=== PATIENT | male | born 1940 | race American Indian/Alaskan Native ===

== ENCOUNTER 2018-04-09 22:53 | Inpatient (IN) | payer MEDICARE ==
[2018-04-09] MEDS ORDERED: NACL 0.9% 1000 ML IV ONE (22:57)
[2018-04-09] MEDS ORDERED: ZOSYN/NS 3.375GM/50ML 3.375 GM/50 ML BAG IV ONE (22:59)
--- NOTE | 2018-04-09 23:07 | Emergency Department Report ---
ED Altered Mental Status HPI - General Stated Complaint: HYERTENSION Time Seen by Provider: 04/09/18 22:57 - History of Present Illness Initial Comments: Patient is 78 years old male with history of hypertension and diabetes. Patient brought to the emergency room via EMS after patient was found by his son this evening, unresponsive. EMS stated that initial blood sugar read low. Patient received dextrose by EMS and start responding. Patient is still confused in the emergency room and unable to give more history. No family member around. Patient also found to be hypothermic with a temperature of 93. MD Complaint: altered mental status, decreased responsiveness - Related Data Allergies Allergy/AdvReac Type Severity Reaction Status Date / Time No Known Allergies Allergy Unverified 05/04/15 21:26 ED Review of Systems ROS: Stated complaint: HYERTENSION Other details as noted in HPI Comment: Unobtainable due to pts medical conditions ED Past Medical Hx - Past Medical History Hx Hypertension: Yes Hx Diabetes: Yes - Surgical History Additional Surgical History: L shoulder 2000 - Social History Smoking Status: Never Smoker ED Physical Exam - General Limitations: Altered Mental Status General appearance: obtunded - Head Head exam: Present: atraumatic, normocephalic, normal inspection - Eye Eye exam: Present: normal appearance, PERRL - ENT ENT exam: Present: normal exam, normal orophraynx, mucous membranes moist - Neck Neck exam: Present: normal inspection, full ROM. Absent: tenderness, meningismus, lymphadenopathy, thyromegaly - Respiratory Respiratory exam: Present: normal lung sounds bilaterally - Cardiovascular Cardiovascular Exam: Present: regular rate, normal rhythm, normal heart sounds - GI/Abdominal GI/Abdominal exam: Present: soft, normal bowel sounds. Absent: distended, tenderness, guarding, rebound, rigid, organomegaly, mass, bruit, pulsatile mass, hernia - Extremities Exam Extremities exam: Present: normal inspection - Back Exam Back exam: Present: normal inspection - Neurological Exam Neurological exam: Present: altered - Skin Skin exam: Present: intact, normal color, other (cold) - Assessment Assessment Interval: Baseline - Level of Consciousness 1a. Level of Consciousness: resp stimuli/obtunded - LOC Questions 1b. LOC Questions: answers no questions correctly - LOC Command 1c. LOC Commands: performs no tasks correctly - Best Gaze 2. Best Gaze: normal - Visual 3. Visual: no visual loss - Facial Palsy 4. Facial Palsy: normal symmetrical movement - Motor Arm 5b. Motor Arm Right: no drift 5a. Motor Arm Left: no drift - Motor Leg 6b. Motor Leg Right: no drift 6a. Motor Leg Left: no drift - Limb Ataxia 7. Limb Ataxia: absent - Sensory 8. Sensory: no response/quadraplegic - Best Language 9. Best Language: coma/unresponsive - Dysarthria 10. Dysarthria: intubated or other barrier - Extinction and Inattention 11. Extinction/Inattention: no abnormality - Scoring Total Score: 11 Stroke Severity: Moderate Stroke ED Course Vital Signs 04/09/18 04/09/18 04/09/18 22:48 22:53 23:01 Temperature 93.5 F L Pulse Rate 98 H Respiratory 26 H 21 Rate Blood Pressure 164/91 156/84 O2 Sat by Pulse 92 98 93 Oximetry 04/09/18 04/09/18 04/09/18 23:15 23:23 23:31 Temperature Pulse Rate Respiratory 17 16 15 Rate Blood Pressure 183/67 171/84 171/84 O2 Sat by Pulse 100 97 97 Oximetry 04/09/18 04/10/18 04/10/18 23:45 00:23 00:31 Temperature Pulse Rate Respiratory 15 Rate Blood Pressure 170/66 170/66 O2 Sat by Pulse 97 100 99 Oximetry 04/10/18 04/10/18 04/10/18 00:40 00:45 01:00 Temperature 95.3 F L Pulse Rate Respiratory 16 13 Rate Blood Pressure 187/64 187/64 O2 Sat by Pulse 100 100 Oximetry 04/10/18 04/10/18 01:15 01:30 Temperature Pulse Rate Respiratory 17 14 Rate Blood Pressure 122/51 119/48 O2 Sat by Pulse 95 99 Oximetry - Lab Data Result diagrams: 04/09/18 23:16 04/09/18 23:16 Lab Results 04/09/18 04/09/18 04/09/18 Range/Units 23:16 23:16 23:16 WBC 13.6 H (4.5-11.0) K/mm3 RBC 4.92 (3.65-5.03) M/mm3 Hgb 14.7 (11.8-15.2) gm/dl Hct 43.1 (35.5-45.6) % MCV 88 (84-94) fl MCH 30 (28-32) pg MCHC 34 (32-34) % RDW 14.3 (13.2-15.2) % Plt Count 180 (140-440) K/mm3 Lymph % (Auto) 9.4 L (13.4-35.0) % [place] % (Auto) 3.2 (0.0-7.3) % Eos % (Auto) 0.1 (0.0-4.3) % Baso % (Auto) 0.0 (0.0-1.8) % Lymph # 1.3 (1.2-5.4) K/mm3 [place] # 0.4 (0.0-0.8) K/mm3 Eos # 0.0 (0.0-0.4) K/mm3 Baso # 0.0 (0.0-0.1) K/mm3 Seg Neutrophils % 87.3 H (40.0-70.0) % Seg Neutrophils # 11.9 H (1.8-7.7) K/mm3 APTT (24.2-36.6) Sec. Sodium 132 L (137-145) mmol/L Potassium 4.3 (3.6-5.0) mmol/L Chloride 92.7 L (98-107) mmol/L Carbon Dioxide 25 (22-30) mmol/L Anion Gap 19 mmol/L BUN 13 (9-20) mg/dL Creatinine 0.9 (0.8-1.5) mg/dL Estimated GFR > 60 ml/min BUN/Creatinine Ratio 14 % Glucose 143 H (75-100) mg/dL POC Glucose (70-105) Lactic Acid 2.10 H* (0.7-2.0) mmol/L Calcium 9.3 (8.4-10.2) mg/dL Total Bilirubin 2.20 H (0.1-1.2) mg/dL AST 107 H (5-40) units/L ALT 47 (7-56) units/L Alkaline Phosphatase 69 (35-129) units/L Troponin T (0.00-0.029) ng/mL Total Protein 7.9 (6.3-8.2) g/dL Albumin 4.3 (3.9-5) g/dL Albumin/Globulin Ratio 1.2 % Urine Color (Yellow) Urine Turbidity (Clear) Urine pH (5.0-7.0) Ur Specific [place] (1.003-1.030) Urine Protein (Negative) mg/dL Urine Glucose (UA) (Negative) mg/dL Urine Ketones (Negative) mg/dL Urine Blood (Negative) Urine Nitrite (Negative) Urine Bilirubin (Negative) Urine Urobilinogen (<2.0) mg/dL Ur Leukocyte Esterase (Negative) Urine WBC (Auto) (0.0-6.0) /HPF Urine RBC (Auto) (0.0-6.0) /HPF U Epithel Cells (Auto) (0-13.0) /HPF Urine Mucus /HPF 04/09/18 04/09/18 04/10/18 Range/Units 23:16 23:16 00:38 WBC (4.5-11.0) K/mm3 RBC (3.65-5.03) M/mm3 Hgb (11.8-15.2) gm/dl Hct (35.5-45.6) % MCV (84-94) fl MCH (28-32) pg MCHC (32-34) % RDW (13.2-15.2) % Plt Count (140-440) K/mm3 Lymph % (Auto) (13.4-35.0) % [place] % (Auto) (0.0-7.3) % Eos % (Auto) (0.0-4.3) % Baso % (Auto) (0.0-1.8) % Lymph # (1.2-5.4) K/mm3 [place] # (0.0-0.8) K/mm3 Eos # (0.0-0.4) K/mm3 Baso # (0.0-0.1) K/mm3 Seg Neutrophils % (40.0-70.0) % Seg Neutrophils # (1.8-7.7) K/mm3 APTT 24.8 (24.2-36.6) Sec. Sodium (137-145) mmol/L Potassium (3.6-5.0) mmol/L Chloride (98-107) mmol/L Carbon Dioxide (22-30) mmol/L Anion Gap mmol/L BUN (9-20) mg/dL Creatinine (0.8-1.5) mg/dL Estimated GFR ml/min BUN/Creatinine Ratio % Glucose (75-100) mg/dL POC Glucose 117 H (70-105) Lactic Acid (0.7-2.0) mmol/L Calcium (8.4-10.2) mg/dL Total Bilirubin (0.1-1.2) mg/dL AST (5-40) units/L ALT (7-56) units/L Alkaline Phosphatase (35-129) units/L Troponin T < 0.010 (0.00-0.029) ng/mL Total Protein (6.3-8.2) g/dL Albumin (3.9-5) g/dL Albumin/Globulin Ratio % Urine Color (Yellow) Urine Turbidity (Clear) Urine pH (5.0-7.0) Ur Specific [place] (1.003-1.030) Urine Protein (Negative) mg/dL Urine Glucose (UA) (Negative) mg/dL Urine Ketones (Negative) mg/dL Urine Blood (Negative) Urine Nitrite (Negative) Urine Bilirubin (Negative) Urine Urobilinogen (<2.0) mg/dL Ur Leukocyte Esterase (Negative) Urine WBC (Auto) (0.0-6.0) /HPF Urine RBC (Auto) (0.0-6.0) /HPF U Epithel Cells (Auto) (0-13.0) /HPF Urine Mucus /HPF 04/10/18 Range/Units 01:07 WBC (4.5-11.0) K/mm3 RBC (3.65-5.03) M/mm3 Hgb (11.8-15.2) gm/dl Hct (35.5-45.6) % MCV (84-94) fl MCH (28-32) pg MCHC (32-34) % RDW (13.2-15.2) % Plt Count (140-440) K/mm3 Lymph % (Auto) (13.4-35.0) % [place] % (Auto) (0.0-7.3) % Eos % (Auto) (0.0-4.3) % Baso % (Auto) (0.0-1.8) % Lymph # (1.2-5.4) K/mm3 [place] # (0.0-0.8) K/mm3 Eos # (0.0-0.4) K/mm3 Baso # (0.0-0.1) K/mm3 Seg Neutrophils % (40.0-70.0) % Seg Neutrophils # (1.8-7.7) K/mm3 APTT (24.2-36.6) Sec. Sodium (137-145) mmol/L Potassium (3.6-5.0) mmol/L Chloride (98-107) mmol/L Carbon Dioxide (22-30) mmol/L Anion Gap mmol/L BUN (9-20) mg/dL Creatinine (0.8-1.5) mg/dL Estimated GFR ml/min BUN/Creatinine Ratio % Glucose (75-100) mg/dL POC Glucose (70-105) Lactic Acid (0.7-2.0) mmol/L Calcium (8.4-10.2) mg/dL Total Bilirubin (0.1-1.2) mg/dL AST (5-40) units/L ALT (7-56) units/L Alkaline Phosphatase (35-129) units/L Troponin T (0.00-0.029) ng/mL Total Protein (6.3-8.2) g/dL Albumin (3.9-5) g/dL Albumin/Globulin Ratio % Urine Color Yellow (Yellow) Urine Turbidity Clear (Clear) Urine pH 5.0 (5.0-7.0) Ur Specific [place] 1.019 (1.003-1.030) Urine Protein 100 mg/dl (Negative) mg/dL Urine Glucose (UA) Neg (Negative) mg/dL Urine Ketones Neg (Negative) mg/dL Urine Blood Lg (Negative) Urine Nitrite Neg (Negative) Urine Bilirubin Neg (Negative) Urine Urobilinogen < 2.0 (<2.0) mg/dL Ur Leukocyte Esterase Neg (Negative) Urine WBC (Auto) 1.0 (0.0-6.0) /HPF Urine RBC (Auto) 9.0 (0.0-6.0) /HPF U Epithel Cells (Auto) < 1.0 (0-13.0) /HPF Urine Mucus Few /HPF - EKG Data -: EKG Interpreted by Mt EKG shows normal: sinus rhythm Rate: normal Interpretation: no acute changes - Radiology Data Radiology results: report reviewed Referring Physician: NADIRA MONROY Patient Name: VETO HIDALGO Date of : 1940 Sex: Male Report Date: 2018-04-10 Report Status: Finalized Findings [facility] [address] [place] [address] Cat Scan Report Signed Patient: VETO HIDALGO MR#: [id number] : 1940 Acct:[id number] Age/Sex: 78 / M ADM Date: 04/09/18 Loc: ED Attending Dr: Ordering Physician: NADIRA MONROY Date of Service: 04/09/18 Procedure(s): CT head/brain wo con Accession Number(s): [id number] cc: NADIRA MONROY FINAL REPORT EXAM: CT HEAD/BRAIN WO CON HISTORY: AMS TECHNIQUE: Non-contrast CT brain. MPR. Overall image quality is satisfactory. PRIORS: None. FINDINGS: COMMENTS: BONE - Calvarium: Intact Central skull base: Intact Temporal mastoids: No effusion Included paranasal sinuses: Well aerated and without air-fluid levels. Intracranial vascular calcifications. CSF SPACES - Ventricles: Prominent. Subarachnoid spaces: Prominent. BRAIN - Mild periventricular variable white matter changes. No acute intracranial bleed, large vessel territory infarct or mass. IMPRESSION: 1. No significant intracranial pathology. 2. Aging brain morphology. RECOMMENDATION: If concern for acute ischemia, diffusion weighted imaging of the brain can further evaluate. Transcribed By: DT Dictated By: ANTONINO BELL DO Electronically Authenticated By: ANTONINO BELL DO Signed Date/Time: 04/10/1842 DD/ TD/TT: 04/10/1840 - Medical Decision Making Patient evaluated by me multiple times. Patient found to have a new onset of seizure, sepsis and hypoglycemia. Patient is still obtunded but his vital signs and remained stable. CT brain is negative for acute finding. I discussed the patient is Dr. Henrietta Francois, she agreed to admit the patient to medical service. Critical Care Time: Yes Critical care time in (mins) excluding proc time.: 45 Critical care attestation.: If time is entered above; I have spent that time in minutes in the direct care of this critically ill patient, excluding procedure time. ED Disposition Clinical Impression: Sepsis, Hypoglycemia, Altered mental state, New onset seizure, Hypothermia Disposition: OP ADMIT IP TO THIS HOSP Is pt being admited?: Yes Condition: Stable Referrals: KATIA KHAN [Primary Care Provider] - 3-5 Days
[2018-04-10 00:01] LABS: Alanine Aminotransferase 47 units/L (7-56); Albumin 4.3 g/dL (3.9-5); BUN/Creatinine Ratio 14; Blood Urea Nitrogen 13 mg/dL (9-20); Calcium 9.3 mg/dL (8.4-10.2); Eosinophils % (Auto) 0.1 % (0.0-4.3); Hematocrit 43.1 % (35.5-45.6); Hemoglobin 14.7 gm/dl (11.8-15.2); Hemolysis Index 9; Lymphocytes # (Auto) 1.3 K/mm3 (1.2-5.4); Lymphocytes % (Auto) 9.4 % (13.4-35.0); Mean Corpuscular HGB Conc 34 % (32-34); Mean Corpuscular Volume 88 fl (84-94); Monocytes # (Auto) 0.4 K/mm3 (0.0-0.8); Monocytes % (Auto) 3.2 % (0.0-7.3); Platelet Count 180 K/mm3 (140-440); Red Blood Count 4.92 M/mm3 (3.65-5.03); Red Cell Distribution Width 14.3 % (13.2-15.2)
--- NOTE | 2018-04-10 00:01 | XRay Report ---
FINAL REPORT PROCEDURE: Chest. TECHNIQUE: Portable AP view. HISTORY: Sepsis. COMPARISON: No prior studies are available for comparison. FINDINGS: The heart and mediastinum appear normal. There is calcification in the aortic arch. The lungs are ngozi ssly clear. There are no definite pleural effusions. The soft tissues are unremarkable. There is oste oarthritis involving both shoulder joints. IMPRESSION: No evidence of acute disease.
[2018-04-10] MEDS: D10W 1,000 ML IV SCH ×3 (00:25→16:45)
--- NOTE | 2018-04-10 00:43 | Cat Scan Report ---
FINAL REPORT EXAM: CT HEAD/BRAIN WO CON HISTORY: AMS TECHNIQUE: Non-contrast CT brain. MPR. Overall image quality is satisfactory. PRIORS: None. FINDINGS: COMMENTS: BONE - Calvarium: Intact Central skull base: Intact Temporal mastoids: No effusion Included paranasal sinuses: Well aerated and without air-fluid levels. Intracranial vascular calcifications. CSF SPACES - Ventricles: Prominent. Subarachnoid spaces: Prominent. BRAIN - Mild periventricular variable white matter changes. No acute intracranial bleed, large vessel territory infarct or mass. IMPRESSION: 1. No significant intracranial pathology. 2. Aging brain morphology. RECOMMENDATION: If concern for acute ischemia, diffusion weighted imaging of the brain can further ev aluate.
[2018-04-10] MEDS ORDERED: D50W (25GM) Syringe IV ONE (00:51)
[2018-04-10] MEDS ORDERED: ATIVAN ONE ×2 (00:54→03:54)
[2018-04-10 01:29] LABS: Bilirubin,Urine NEG (Negative); Blood,Urine LG (Negative); Color,Urine Yellow (Yellow); Mucus,Urine FEW /HPF; Urobilinogen,Urine < 2.0 mg/dL (<2.0)
[2018-04-10] MEDS ORDERED: ATIVAN IV ONE ×2 (01:33→04:05)
[2018-04-10] MEDS ORDERED: KEPPRA 1,000 MG/NS 0.75% 100ML 1,000 MG/100 ML BAG IV ONE (02:11)
--- NOTE | 2018-04-10 02:48 | History and Physical Report ---
History of Present Illness Date of examination: 04/10/18 History of present illness: 78-year-old man with a history of hypertension, diabetes, coronary artery disease was brought to the emergency room because he was found unresponsive at home when the family has not heard from him. EMS was called, his blood sugar was undetectable by the machine, D50 was given, he became more alert. In the emergency room he had a seizure, his blood sugar was well over 100, he was given IV ativan, status post loading dose of Keppra. Review of system is unobtainable. History is per the son and sister at bedside PAST MEDICAL HISTORY: hypertension, diabetes, coronary artery diseas PAST SURGICAL HISTORY: Shoulder, abdominal SOCIAL HISTORY: Denies alcohol, drugs, tobacco FAMILY HISTORY: Hypertension Medications and Allergies Allergies Allergy/AdvReac Type Severity Reaction Status Date / Time No Known Allergies Allergy Unverified 05/04/15 21:26 Active Meds: Active Medications Dextrose (D10w) 1,000 mls @ 100 mls/hr IV DIRECT SHARRI Last Admin: 04/10/18 00:25 Dose: 100 mls/hr Documented by: Exam - Physical Exam Narrative exam: General Apperance: The patient lying in bed, breathing comfortable HEENT: Normocephalic, atraumatic. Pupils equally round and reactive to light, EOMI, no sclericterus or JVD or thyromegaly or nodule. , no carotid bruit, mucous membranes moist, no exudate or erythema Heart: S1-S2, regular is rhythm Lungs: Clear to auscultation bilaterally, breathing comfortable Abdomen: Positive bowel sounds, soft, nontender, nondistended, no organomegaly Extremities: No edema cyanosis clubbing Skin: no rash, nodule, warm and dry Neuro: Sedated - Constitutional Vitals: Temp Pulse Resp BP Pulse Ox 95.3 F L 98 H 14 119/48 99 04/10/18 00:40 04/09/18 22:53 04/10/18 01:30 04/10/18 01:30 04/10/18 01:30 Results - Labs CBC & Chem 7: 04/09/18 23:16 04/09/18 23:16 Labs: Abnormal lab results 04/09/18 04/09/18 04/09/18 Range/Units 23:16 23:16 23:16 WBC 13.6 H (4.5-11.0) K/mm3 Lymph % (Auto) 9.4 L (13.4-35.0) % Seg Neutrophils % 87.3 H (40.0-70.0) % Seg Neutrophils # 11.9 H (1.8-7.7) K/mm3 Sodium 132 L (137-145) mmol/L Chloride 92.7 L (98-107) mmol/L Glucose 143 H (75-100) mg/dL POC Glucose (70-105) Lactic Acid 2.10 H* (0.7-2.0) mmol/L Total Bilirubin 2.20 H (0.1-1.2) mg/dL AST 107 H (5-40) units/L 04/10/18 04/10/18 04/10/18 Range/Units 00:38 00:55 01:13 WBC (4.5-11.0) K/mm3 Lymph % (Auto) (13.4-35.0) % Seg Neutrophils % (40.0-70.0) % Seg Neutrophils # (1.8-7.7) K/mm3 Sodium (137-145) mmol/L Chloride (98-107) mmol/L Glucose (75-100) mg/dL POC Glucose 117 H 121 H (70-105) Lactic Acid 2.10 H* (0.7-2.0) mmol/L Total Bilirubin (0.1-1.2) mg/dL AST (5-40) units/L 04/10/18 Range/Units 02:10 WBC (4.5-11.0) K/mm3 Lymph % (Auto) (13.4-35.0) % Seg Neutrophils % (40.0-70.0) % Seg Neutrophils # (1.8-7.7) K/mm3 Sodium (137-145) mmol/L Chloride (98-107) mmol/L Glucose (75-100) mg/dL POC Glucose 153 H (70-105) Lactic Acid (0.7-2.0) mmol/L Total Bilirubin (0.1-1.2) mg/dL AST (5-40) units/L - Imaging and Cardiology EKG: image reviewed Chest x-ray: report reviewed CT Scan - head: report reviewed Assessment and Plan Assessment Acute encephalopathy secondary to hypoglycemia Seizure, new onset Hypoglycemia/insulin-dependent diabetic Coronary artery disease Hypertension Plan Admit to medicine Continue D10, check fingersticks every hour Check cardiac enzymes, start empiric Zosyn DVT prophylaxis, consult neurology
[2018-04-10] MEDS ORDERED: SODIUM CHLORIDE FLUSH SYRINGE 10 ML IV PRN (02:57)
[2018-04-10 04:26] LABS: Basophils % (Auto) 0.3 % (0.0-1.8); Hematocrit 38.2 % (35.5-45.6); Hemoglobin 12.8 gm/dl (11.8-15.2); Lymphocytes # (Auto) 1.1 K/mm3 (1.2-5.4); Lymphocytes % (Auto) 7.5 % (13.4-35.0); Mean Corpuscular HGB Conc 33 % (32-34); Mean Corpuscular Volume 87 fl (84-94); Monocytes % (Auto) 7.3 % (0.0-7.3); Platelet Count 167 K/mm3 (140-440); Red Blood Count 4.38 M/mm3 (3.65-5.03); Red Cell Distribution Width 14.6 % (13.2-15.2)
[2018-04-10 04:41] LABS: Creatine Kinase MB 34.3 ng/mL (0.0-4.0)
[2018-04-10 04:44] LABS: BUN/Creatinine Ratio 15; Blood Urea Nitrogen 12 mg/dL (9-20); Calcium 7.9 mg/dL (8.4-10.2); Hemolysis Index 32
[2018-04-10] MEDS ORDERED: NACL 0.9% 1000 ML 1,000 ML ONE ×2 (05:00→12:10)
[2018-04-10] MEDS ORDERED: NACL 0.9% 1000 ML 1,000 ML IV ONE (05:19)
[2018-04-10] MEDS ORDERED: ZOSYN/NS 3.375GM/50ML 3.375 GM/50 ML BAG IV SCH (06:00)
[2018-04-10] MEDS: ZOSYN/NS 4.5GM/100ML 4.5 GM/100 ML VIAL IV SCH ×3 (06:35→22:46)
[2018-04-10] MEDS ORDERED: ZOSYN/NS 4.5GM/100ML 4.5 GM/100 ML VIAL IV ONE (06:51)
[2018-04-10] MEDS ORDERED: LOVENOX SUB-Q SCH (10:00)
--- NOTE | 2018-04-10 10:30 | Event Note ---
Date: 04/10/18 Assessment and Plan: Acute encephalopathy secondary to hypoglycemia Seizure, new onset Hypoglycemia/insulin-dependent diabetic Coronary artery disease Hypertension continue current management f/u work up and Neuro evaln and recomendations
[2018-04-10] MEDS ORDERED: LOVENOX SUB-Q ONE (11:28)
[2018-04-10] MEDS: LOVENOX SUB-Q SCH (11:38)
[2018-04-10] MEDS ORDERED: KEPPRA 1,500 MG in NACL 0.9% 100 ML IV ONE (12:00)
--- NOTE | 2018-04-10 12:19 | Emergency Department Report ---
Blank Doc - Documentation Documentation: Called to the room and a possibly 11:59 PM due to the patient having issues with his airway. Neurologist at bedside and the patient is not responsive to sternal rub or verbal stimulation. The patient has no gag reflex. This time the decision was made to intubate the patient with verbal consent from the family. Please see intubation note below.
--- NOTE | 2018-04-10 12:23 | Emergency Department Report ---
Blank Doc - Documentation Documentation: Procedure note Intubation Patient was preoxygenated with a bag valve mask sedation and paralytic use. First it was used for sedation. Rocuranium was used as a paralytic. A 3 blade Zoltan was used with passing of a 7.5 ET tube through the vocal cords on the first pass. Color change at bedside via CO2 detector with condensation in the ET tube. Patient tolerated procedure well. Awaiting chest x-ray for confirmation.
[2018-04-10] MEDS ORDERED: DIPRIVAN 10 MG/ML 1,000 MG/100 ML BOTTLE IV SCH (13:00)
--- NOTE | 2018-04-10 13:09 | Progress Note ---
Assessment and Plan Assessment and plan: --Unable to protect the airway due to altered level of consciousness and seizures Intubated on ventilatory support, nebulizers as needed Admit to ICU, pulmonary critical care consult, d/w Dr Cadet --Metabolic encephalopathy; multifactorial Seizure episode, dementia, hypoglycemia, closely monitor --New onset seizures; seizure precautions Antiepileptic medications, EEG, CT head negative Neurology following, check MRI --Rhabdomyolysis; elevated CPK Gentle hydration, input output monitoring, monitor CK levels Preserved renal function --Hypertension; resume home antihypertensives, when necessary medications --Diabetes mellitus; Accu-Chek sliding scale coverage and ADA diet Insulin as needed --Morbid obesity; BMI 66.1; Patient needs weight reduction when medically stable --Possible obstructive sleep apnea; patient needs sleep studies An BiPAP/CPAP at night --DVT Prophylaxis; Lovenox --CODE STATUS FULL CODE Closely monitor the patient and adjust management as needed ER physician and neurology discussed with the family Family not at the bedside. We will discuss with them when they're available The high probability of a clinically significant, sudden or life threatening deterioration of the [neurology ,cardiac,metabolic and pulmonary] system(s) required my full and direct attention, intervention and personal management.The aggregate critical care time was [35] minutes. This time is in addition to time spent performing reported procedures but includes the following: [x] Data Review and interpretation [x] Patient assessment and monitoring of vital signs [x] Documentation [x] Medication orders and management History Interval history: 78-year-old man with a history of hypertension, diabetes, coronary artery disease was admitted through the emergency room with history of unresponsiveness at home for unknown period of time , EMS was called, his blood sugar was undetectable by the machine, D50 was given, he became more alert. In the emergency room he had a seizure, his blood sugar was well over 100, he was given IV ativan, status post loading dose of Keppra. Patient was initially admitted to [facility], however while waiting for bed assignment, patient is having problems protecting airway because of unresponsiveness. Patient was intubated and placed on mechanical ventilation An event to see the patient patient is orally intubated on vent sedated Not in acute distress Vital signs reviewed Hospitalist Physical - Constitutional Vitals: Temp Pulse Resp BP Pulse Ox 99.1 F 102 H 19 133/70 100 04/10/18 03:28 04/10/18 09:01 04/10/18 09:01 04/10/18 09:01 04/10/18 09:01 General appearance: Present: no acute distress, obese (Morbidly obese), other (intubated on vent) - EENT Eyes: Present: PERRL, EOM intact - Neck Neck: Present: supple, normal ROM - Respiratory Respiratory effort: normal Respiratory: bilateral: diminished, negative: rales, rhonchi, wheezing - Cardiovascular Rhythm: regular Heart Sounds: Present: S1 & S2 - Extremities Extremities: no ischemia, No edema - Abdominal General gastrointestinal: soft, non-tender, non-distended, normal bowel sounds - Integumentary Integumentary: Present: clear, warm - Psychiatric Psychiatric: other (intubated on vent) - Neurologic Neurologic: other (intubated on vent ) Results - Labs CBC & Chem 7: 04/10/18 04:07 04/10/18 04:07 Labs: Laboratory Last Values WBC 14.0 K/mm3 (4.5-11.0) H 04/10/18 04:07 RBC 4.38 M/mm3 (3.65-5.03) 04/10/18 04:07 Hgb 12.8 gm/dl (11.8-15.2) 04/10/18 04:07 Hct 38.2 % (35.5-45.6) 04/10/18 04:07 MCV 87 fl (84-94) 04/10/18 04:07 MCH 29 pg (28-32) 04/10/18 04:07 MCHC 33 % (32-34) 04/10/18 04:07 RDW 14.6 % (13.2-15.2) 04/10/18 04:07 Plt Count 167 K/mm3 (140-440) 04/10/18 04:07 Lymph % (Auto) 7.5 % (13.4-35.0) L 04/10/18 04:07 [facility] % (Auto) 7.3 % (0.0-7.3) 04/10/18 04:07 Eos % (Auto) 0.0 % (0.0-4.3) 04/10/18 04:07 Baso % (Auto) 0.3 % (0.0-1.8) 04/10/18 04:07 Lymph # 1.1 K/mm3 (1.2-5.4) L 04/10/18 04:07 [facility] # 1.0 K/mm3 (0.0-0.8) H 04/10/18 04:07 Eos # 0.0 K/mm3 (0.0-0.4) 04/10/18 04:07 Baso # 0.0 K/mm3 (0.0-0.1) 04/10/18 04:07 Seg Neutrophils % 84.9 % (40.0-70.0) H 04/10/18 04:07 Seg Neutrophils # 11.8 K/mm3 (1.8-7.7) H 04/10/18 04:07 APTT 24.8 Sec. (24.2-36.6) 04/09/18 23:16 POC ABG pH 7.368 (7.35-7.45) 04/10/18 12:44 POC ABG pCO2 45.6 (35-45) H 04/10/18 12:44 POC ABG pO2 374 (80-105) H 04/10/18 12:44 POC ABG HCO3 26.2 04/10/18 12:44 POC ABG Total CO2 28 04/10/18 12:44 POC ABG O2 Sat 100 04/10/18 12:44 POC ABG Base Excess 1 04/10/18 12:44 FiO2 100 % 04/10/18 12:44 Sodium 130 mmol/L (137-145) L 04/10/18 04:07 Potassium 3.6 mmol/L (3.6-5.0) 04/10/18 04:07 Chloride 93.4 mmol/L (98-107) L 04/10/18 04:07 Carbon Dioxide 24 mmol/L (22-30) 04/10/18 04:07 Anion Gap 16 mmol/L 04/10/18 04:07 BUN 12 mg/dL (9-20) 04/10/18 04:07 Creatinine 0.8 mg/dL (0.8-1.5) 04/10/18 04:07 Estimated GFR > 60 ml/min 04/10/18 04:07 BUN/Creatinine Ratio 15 % 04/10/18 04:07 Glucose 180 mg/dL (75-100) H 04/10/18 04:07 POC Glucose 245 (70-105) H 04/10/18 09:48 Lactic Acid 1.70 mmol/L (0.7-2.0) 04/10/18 02:47 Calcium 7.9 mg/dL (8.4-10.2) L D 04/10/18 04:07 Total Bilirubin 2.20 mg/dL (0.1-1.2) H 04/09/18 23:16 AST 107 units/L (5-40) H 04/09/18 23:16 ALT 47 units/L (7-56) 04/09/18 23:16 Alkaline Phosphatase 69 units/L (35-129) 04/09/18 23:16 Total Creatine Kinase 9880 units/L (55-170) H 04/10/18 10:37 CK-MB (CK-2) 30.0 ng/mL (0.0-4.0) H 04/10/18 10:37 CK-MB (CK-2) Rel Index 0.3 (0-4) 04/10/18 10:37 Troponin T < 0.010 ng/mL (0.00-0.029) 04/10/18 10:37 Total Protein 7.9 g/dL (6.3-8.2) 04/09/18 23:16 Albumin 4.3 g/dL (3.9-5) 04/09/18 23:16 Albumin/Globulin Ratio 1.2 % 04/09/18 23:16 Urine Color Yellow (Yellow) 04/10/18 01:07 Urine Turbidity Clear (Clear) 04/10/18 01:07 Urine pH 5.0 (5.0-7.0) 04/10/18 01:07 Ur Specific [place] 1.019 (1.003-1.030) 04/10/18 01:07 Urine Protein 100 mg/dl mg/dL (Negative) 04/10/18 01:07 Urine Glucose (UA) Neg mg/dL (Negative) 04/10/18 01:07 Urine Ketones Neg mg/dL (Negative) 04/10/18 01:07 Urine Blood Lg (Negative) 04/10/18 01:07 Urine Nitrite Neg (Negative) 04/10/18 01:07 Urine Bilirubin Neg (Negative) 04/10/18 01:07 Urine Urobilinogen < 2.0 mg/dL (<2.0) 04/10/18 01:07 Ur Leukocyte Esterase Neg (Negative) 04/10/18 01:07 Urine WBC (Auto) 1.0 /HPF (0.0-6.0) 04/10/18 01:07 Urine RBC (Auto) 9.0 /HPF (0.0-6.0) 04/10/18 01:07 U Epithel Cells (Auto) < 1.0 /HPF (0-13.0) 04/10/18 01:07 Urine Mucus Few /HPF 04/10/18 01:07
--- NOTE | 2018-04-10 13:38 | Consultation ---
History of Present Illness Consult date: 04/10/18 Requesting physician: BREEZY XAVIER Reason for consult: other (acute respiratory failures, sepsis, acute encephalopathy) History of present illness: This 78-year-old right-handed -[place] male was found down around 8 PM yesterday slumped partly on chair partly on sofa by his sons. They could not wake him up. EMS was called, his blood sugar was undetectable by the machine, D50 was given, he became more alert. In the emergency room he had a seizure, his blood sugar was well over 100, he was given IV ativan, status post loading dose of Keppra. Patient was initially admitted to [facility], however while waiting for bed assignment, patient is having problems protecting airway because of unresponsiveness. Patient was intubated and placed on mechanical ventilation. I have been consulted for critical care management. Patient was seen and examined. Vitals, labs, medications, chart reviewed. Patient was seen in the ED, case was discussed with ED physician, RT and hospitalist service( Dr. 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 denies: smoking (not for many years), alcohol abuse, prescription drug abuse, IV drug use Family history: diabetes (sister, brother), hypertension (3 sisters, several brothers), other (no epilepsy ). no stroke Medications and Allergies Allergies Allergy/AdvReac Type Severity Reaction Status Date / Time No Known Allergies Allergy Unverified 05/04/15 21:26 Home Medications Medication Instructions Recorded Confirmed Last Taken Type Gabapentin [Neurontin] 100 mg PO HS 04/10/18 04/10/18 Unknown History Insulin Aspart Prot/Aspart(Nf) 6 - 8 units SUB-Q QAM 04/10/18 04/10/18 Unknown History [Novolog Mix 70/30] Insulin Aspart Prot/Aspart(Nf) 28 units SUB-Q QPM 04/10/18 04/10/18 Unknown History [Novolog Mix 70/30] Lisinopril [Zestril] 20 mg PO QDAY 04/10/18 04/10/18 Unknown History Metoprolol Tartrate 25 mg PO BID 04/10/18 04/10/18 Unknown History Pravastatin [Pravachol] 40 mg PO QHS 04/10/18 04/10/18 Unknown History Tamsulosin HCl [Flomax] 0.4 mg PO HS 04/10/18 04/10/18 Unknown History amLODIPine [Norvasc] 10 mg PO DAILY 04/10/18 04/10/18 Unknown History traMADol [Ultram] 50 mg PO QDAY PRN 04/10/18 04/10/18 Unknown History Active Meds: Active Medications Enoxaparin Sodium (Lovenox) 40 mg SUB-Q QDAY@1000 SHARRI Last Admin: 04/10/18 11:38 Dose: 40 mg Documented by: Dextrose (D10w) 1,000 mls @ 100 mls/hr IV DIRECT SHARRI Last Admin: 04/10/18 08:45 Dose: 125 mls/hr Documented by: Piperacillin Sod/Tazobactam Sod (Zosyn/Ns 4.5gm/100ml) 4.5 gm in 100 mls @ 200 mls/hr IV Q8HR SHARRI; Protocol Last Admin: 04/10/18 06:35 Dose: 200 mls/hr Documented by: Levetiracetam 750 mg/ Sodium (Chloride) 107.5 mls @ 400 mls/hr IV Q6HR SHARRI Propofol (Diprivan 10 Mg/Ml) 1,000 mg in 100 mls @ 6.09 mls/hr IV TITR SHARRI; Protocol Ondansetron HCl (Zofran) 4 mg IV Q8H PRN PRN Reason: Nausea And Vomiting Sodium Chloride (Sodium Chloride Flush Syringe 10 Ml) 10 ml IV BID SHARRI Sodium Chloride (Sodium Chloride Flush Syringe 10 Ml) 10 ml IV PRN PRN PRN Reason: LINE FLUSH Review of Systems ROS unobtainable: due to endotracheal tube, due to mental status Physical Examination Vital signs: Vital Signs Pulse Ox 92 04/09/18 22:48 Constitutional: no acute distress, other (Elderly looking AAM, normocephalic and atraumatic with mildly increased respiratory effort on MVS) Eyes: non-icteric ENT: oropharynx moist, other (ETT 23 cm STEPHANIE) Neck: supple, no lymphadenopathy, no JVD, other (large neck circumference) Effort: mildly labored Ascultation: Bilateral: diminished breath sounds, rhonchi Percussion: Bilateral: not dull Cardiovascular: regular rate and rhythm Gastrointestinal: normoactive bowel sounds, soft, non-tender, non-distended, other (protuberant) Integumentary: normal Extremities: no cyanosis, no edema, pulses normal, no ischemia or petechiae Neurologic: non-focal exam (grossly), unable to assess Psychiatric: other (unable to assess) Results - Laboratory Findings CBC and BMP: 04/12/18 04:00 04/12/18 04:00 ABG POC ABG pH 7.368 (7.35-7.45) 04/10/18 12:44 POC ABG pCO2 45.6 (35-45) H 04/10/18 12:44 POC ABG pO2 374 (80-105) H 04/10/18 12:44 POC ABG HCO3 26.2 04/10/18 12:44 POC ABG Total CO2 28 04/10/18 12:44 POC ABG O2 Sat 100 04/10/18 12:44 Abnormal lab findings: Abnormal Labs 04/09/18 04/09/18 04/09/18 23:16 23:16 23:16 WBC 13.6 H Lymph % (Auto) 9.4 L Lymph # [place] # Seg Neutrophils % 87.3 H Seg Neutrophils # 11.9 H POC ABG pCO2 POC ABG pO2 Sodium 132 L Chloride 92.7 L Glucose 143 H POC Glucose Lactic Acid 2.10 H* Calcium Total Bilirubin 2.20 H AST 107 H Total Creatine Kinase CK-MB (CK-2) 04/10/18 04/10/18 04/10/18 00:38 00:55 01:13 WBC Lymph % (Auto) Lymph # [place] # Seg Neutrophils % Seg Neutrophils # POC ABG pCO2 POC ABG pO2 Sodium Chloride Glucose POC Glucose 117 H 121 H Lactic Acid 2.10 H* Calcium Total Bilirubin AST Total Creatine Kinase CK-MB (CK-2) 04/10/18 04/10/18 04/10/18 02:10 03:51 04:07 WBC 14.0 H Lymph % (Auto) 7.5 L Lymph # 1.1 L [place] # 1.0 H Seg Neutrophils % 84.9 H Seg Neutrophils # 11.8 H POC ABG pCO2 POC ABG pO2 Sodium Chloride Glucose POC Glucose 153 H 158 H Lactic Acid Calcium Total Bilirubin AST Total Creatine Kinase CK-MB (CK-2) 04/10/18 04/10/18 04/10/18 04:07 06:56 09:48 WBC Lymph % (Auto) Lymph # [place] # Seg Neutrophils % Seg Neutrophils # POC ABG pCO2 POC ABG pO2 Sodium 130 L Chloride 93.4 L Glucose 180 H POC Glucose 251 H 245 H Lactic Acid Calcium 7.9 L D Total Bilirubin AST Total Creatine Kinase 7857 H CK-MB (CK-2) 34.3 H 04/10/18 04/10/18 10:37 12:44 WBC Lymph % (Auto) Lymph # [place] # Seg Neutrophils % Seg Neutrophils # POC ABG pCO2 45.6 H POC ABG pO2 374 H Sodium Chloride Glucose POC Glucose Lactic Acid Calcium Total Bilirubin AST Total Creatine Kinase 9880 H CK-MB (CK-2) 30.0 H - Diagnostic Findings Chest x-ray: image reviewed (ETT in good position, no acute cardiopulmonary disease) Assessment and Plan Acute Hypoxemic Respiratory Failure on MVS fro airway protection/seizures New Onset Seizures (presumed secondary to Hypoglycemia) Acute Encephalopathy (Toxic -Metabolic) Diabetes Type II, hypoglycemia Rhabdomyolysis Obesity HTN Possible JOE Hyponatremia (mild) Hypomagnesemia Leucocytosis h/o Alcohol use disorder -Admit ICU -VAP bundle addressed -Anti-seizure medications -Analgesia and agitation management. In view of seizures will use benodiazepines for sedation -VTE and stress ulcer prophylaxis -AEDs (Keppra) -Place small bowel feeding tube, once placement is confirmed initiate enteric feeding -Accucheck and treat for hypoglycemia - Get CRP and lactate levels and trend as necessary to aid clinical decision making - Wean supplemental oxygen to keep O2 sats > 90% -Lung protective strategies - Bronchodilators per protocol -Adjust minute ventilation for better gas exchange/acid-base - Daily SAT's and SBT assessment -EEG pending, Neurology on consult - Continue IVF fluids re: Rhabdomyolysis - Replace electrolytes as indicated - Nutrition consult -Alcohol withdrawal precautions/CIWA protocol -Evaluate in 24 hours fro ongoing need for Paul catheter - Will need outpatient PSG to evaluate JOE CONDITION: CRITICAL PROGNOSIS: GUARDED CODE STATUS: FULL CODE The high probability of a clinically significant, sudden or life-threatening d eterioration of the [respiratory, renal, endocrine, neurology] system(s) required my full and direct attention, intervention and personal management. The aggregate critical care time was [65] minutes without overlap. Time includes spent on; [x] Data Review and interpretation [x] Patient assessment and monitoring of vital signs [x] Documentation [x] Medication orders and management
--- NOTE | 2018-04-10 14:34 | Consultation ---
History of Present Illness Consult date: 04/10/18 Requesting physician: BREEZY XAVIER Reason for Consult: seizure Chief complaint: seizure History of present illness: This 78-year-old right-handed -Nepalese male was found down around 8 PM yesterday slumped partly on chair partly on sofa by his sons. They could not wake him up. Glucose was in the "teens" his son was told by EMS. He had last been seen well last Sunday by his niece. CT shows some atrophy but no acute disease. 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 denies: smoking (not for many years), alcohol abuse, prescription drug abuse, IV drug use Family history: diabetes (sister, brother), hypertension (3 sisters, several brothers), other (no epilepsy ). denies: stroke Medications and Allergies Allergies Allergy/AdvReac Type Severity Reaction Status Date / Time No Known Allergies Allergy Unverified 05/04/15 21:26 Home Medications Medication Instructions Recorded Confirmed Last Taken Type Gabapentin [Neurontin] 100 mg PO HS 04/10/18 04/10/18 Unknown History Insulin Aspart Prot/Aspart(Nf) 6 - 8 units SUB-Q QAM 04/10/18 04/10/18 Unknown History [Novolog Mix 70/30] Insulin Aspart Prot/Aspart(Nf) 28 units SUB-Q QPM 04/10/18 04/10/18 Unknown Hi story [Novolog Mix 70/30] Lisinopril [Zestril] 20 mg PO QDAY 04/10/18 04/10/18 Unknown History Metoprolol Tartrate 25 mg PO BID 04/10/18 04/10/18 Unknown History Pravastatin [Pravachol] 40 mg PO QHS 04/10/18 04/10/18 Unknown History Tamsulosin HCl [Flomax] 0.4 mg PO HS 04/10/18 04/10/18 Unknown History amLODIPine [Norvasc] 10 mg PO DAILY 04/10/18 04/10/18 Unknown History traMADol [Ultram] 50 mg PO QDAY PRN 04/10/18 04/10/18 Unknown History Active Meds: Active Medications Enoxaparin Sodium (Lovenox) 40 mg SUB-Q QDAY@1000 SHARRI Last Admin: 04/10/18 11:38 Dose: 40 mg Documented by: Dextrose (D10w) 1,000 mls @ 100 mls/hr IV DIRECT SHARRI Last Admin: 04/10/18 08:45 Dose: 125 mls/hr Documented by: Piperacillin Sod/Tazobactam Sod (Zosyn/Ns 4.5gm/100ml) 4.5 gm in 100 mls @ 200 mls/hr IV Q8HR SHARRI; Protocol Last Admin: 04/10/18 06:35 Dose: 200 mls/hr Documented by: Levetiracetam 750 mg/ Sodium (Chloride) 107.5 mls @ 400 mls/hr IV Q6HR SHARRI Propofol (Diprivan 10 Mg/Ml) 1,000 mg in 100 mls @ 6.09 mls/hr IV TITR SHARRI; Protocol Ondansetron HCl (Zofran) 4 mg IV Q8H PRN PRN Reason: Nausea And Vomiting Sodium Chloride (Sodium Chloride Flush Syringe 10 Ml) 10 ml IV BID SHARRI Sodium Chloride (Sodium Chloride Flush Syringe 10 Ml) 10 ml IV PRN PRN PRN Reason: LINE FLUSH Review of Systems All systems: negative (no headaches or dizziness, no snoring son is aware of. 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 Seen with his son and sister and niece during portions of the history and examination. HEENT: atraumatic, normocephalic, no bruits. Eddie 2+ without induration or enlargement. Oropharynx pink and moist. Neck: mildly stiff, no bruits. Heart: cannot hear heart sounds. Extremities: no DP or PT pulses palpable, 2+ edema. Neurologic Exam: Mental status: no response to voice opens eyes to pain, no response to orientation questions and obedience of commands, does not track me. Cranial at that: No blink to threat on either side, right pupil slightly greater than left at 3 and 2 mm respectively, reactive to light bilaterally, does not track me, decreased right lateral gaze excursion with Doll's eyes for the right eye, no response to pinprick or supraorbital pressure in terms of grimace, cannot assess Smith, some gag response, cannot assess shoulder shrug or tongue protrusion. Cerebellar: Cannot assess. Sensory exam: No response to pinprick or nailbed pressure in all 4 limbs. Motor Exam Upper Extremities: cortical thumbs X 2, decorticate left to left supraorbital pressure, fumbling thumb motion right to right supraorbital pressure but no leg motion with S.O. pressure on either side or neck or chest skin pinch on either side. Increased tone bilaterally. Motor Exam Lower Extremities: slight adduction right leg/knee to plantar rub, no response on the left to plantar rub or S.O. pressure on either side or neck or chest skin pinch on either side. Increased tone on the right. Reflexes: jaw jerk is positive, palmomental and snout are negative. Triceps, biceps and brachioradialis are 1 bilaterally. Barba's is negative bilaterally. Knee jerks are zero right and 1+ left and ankle jerks are zero bilaterally without clonus. Toes are downgoing on the right and mute on the left to Babinski testing. Episode of lips pursing and decerebrate posturing, cannot rule out seizure. Ad ditional levetiracetam bolus had been ordered but has not yet started. Patient to get propofol following intubation since unable to protect airway. - Assessment Assessment Interval: Baseline - Level of Consciousness 1a. Level of Consciousness: resp stimuli/obtunded - LOC Questions 1b. LOC Questions: answers no questions correctly - LOC Command 1c. LOC Commands: performs no tasks correctly - Best Gaze 2. Best Gaze: normal - Visual 3. Visual: no visual loss - Facial Palsy 4. Facial Palsy: normal symmetrical movement - Motor Arm 5b. Motor Arm Right: no drift - Motor Leg 6a. Motor Leg Left: no drift - Limb Ataxia 7. Limb Ataxia: absent - Sensory 8. Sensory: no response/quadraplegic - Best Language 9. Best Language: coma/unresponsive - Dysarthria 10. Dysarthria: intubated or other barrier - Extinction and Inattention 11. Extinction/Inattention: no abnormality Results - Laboratory Findings CBC and BMP: 04/10/18 04:07 04/10/18 04:07 Abnormal Lab Findings: Abnormal Labs 04/09/18 04/09/18 04/09/18 23:16 23:16 23:16 WBC 13.6 H Lymph % (Auto) 9.4 L Lymph # [place] # Seg Neutrophils % 87.3 H Seg Neutrophils # 11.9 H POC ABG pCO2 POC ABG pO2 Sodium 132 L Chloride 92.7 L Glucose 143 H POC Glucose Lactic Acid 2.10 H* Calcium Total Bilirubin 2.20 H AST 107 H Total Creatine Kinase CK-MB (CK-2) 04/10/18 04/10/18 04/10/18 00:38 00:55 01:13 WBC Lymph % (Auto) Lymph # [place] # Seg Neutrophils % Seg Neutrophils # POC ABG pCO2 POC ABG pO2 Sodium Chloride Glucose POC Glucose 117 H 121 H Lactic Acid 2.10 H* Calcium Total Bilirubin AST Total Creatine Kinase CK-MB (CK-2) 04/10/18 04/10/18 04/10/18 02:10 03:51 04:07 WBC 14.0 H Lymph % (Auto) 7.5 L Lymph # 1.1 L [place] # 1.0 H Seg Neutrophils % 84.9 H Seg Neutrophils # 11.8 H POC ABG pCO2 POC ABG pO2 Sodium Chloride Glucose POC Glucose 153 H 158 H Lactic Acid Calcium Total Bilirubin AST Total Creatine Kinase CK-MB (CK-2) 04/10/18 04/10/18 04/10/18 04:07 06:56 09:48 WBC Lymph % (Auto) Lymph # [place] # Seg Neutrophils % Seg Neutrophils # POC ABG pCO2 POC ABG pO2 Sodium 130 L Chloride 93.4 L Glucose 180 H POC Glucose 251 H 245 H Lactic Acid Calcium 7.9 L D Total Bilirubin AST Total Creatine Kinase 7857 H CK-MB (CK-2) 34.3 H 04/10/18 04/10/18 10:37 12:44 WBC Lymph % (Auto) Lymph # [place] # Seg Neutrophils % Seg Neutrophils # POC ABG pCO2 45.6 H POC ABG pO2 374 H Sodium Chloride Glucose POC Glucose Lactic Acid Calcium Total Bilirubin AST Total Creatine Kinase 9880 H CK-MB (CK-2) 30.0 H Assessment and Plan Impression: 1. Complex partial seizure with secondary generalization 2. Hypoxic-ischemic encephalopathy 3. Hypoglycemic episode Plan: 1. I explained that it was possible his seizure at the hospital was still due to low brain glucose even though blood glucose had been corrected. 2. Ordered EEG, later reviewed segments photographed by recreation technician and sent to me by phone showing slowing bilaterally seemingly right more than left. 3. Have ordered her MRI SOWMYA to look for cerebellar stroke or other stroke and to see if there is evidence of suspected hypoxic ischemic changes. If cannot be done, will need repeat CT to look for change from prior CT, such as bleeding 60 minutes critical care time spent with this patient. Thank you for an interesting consultation on this unfortunate late 70s man.
--- NOTE | 2018-04-10 14:42 | XRay Report ---
AP CHEST :04/10/18 12:57 CLINICAL: Post intubation. COMPARISON:05/07/18 FINDINGS: An endotracheal tube has been inserted and the tip is in satisfactory position above the yanely. No other tubes or lines. The lungs are normally expanded and clear. No pneumothorax. Normal heart and pulmonary vessels. IMPRESSION: Satisfactory placement of endotracheal tube.No acute cardiopulmonary process.
[2018-04-10] MEDS ORDERED: PANCREAZE DR 10,500 UNIT FEEDTUBE PRN (17:37)
[2018-04-10] MEDS ORDERED: SIMPLE SYRUP FEEDTUBE PRN ×2 (17:37)
[2018-04-10] MEDS ORDERED: SODIUM BICARBONATE FEEDTUBE PRN (17:37)
[2018-04-10] MEDS: NACL 0.9% 1000 ML 1,000 ML IV SCH (18:16)
[2018-04-10] MEDS: KEPPRA 750 MG in NACL 0.9% 100 ML IV SCH (18:17)
[2018-04-10] MEDS: HumaLOG SUB-Q SCH (18:46)
[2018-04-10] MEDS ORDERED: HumaLOG SUB-Q SCH (22:00)
[2018-04-10] MEDS: SODIUM CHLORIDE FLUSH SYRINGE 10 ML IV SCH (22:46)
[2018-04-10] MEDS ORDERED: VERSED IV ONE (22:46)
[2018-04-10] MEDS ORDERED: ZEMURON IV ONE (22:46)
--- NOTE | 2018-04-11 00:33 | Cat Scan Report ---
FINAL REPORT EXAM: CT HEAD/BRAIN WO CON HISTORY: decerebrate posturing following seizure, found cody TECHNIQUE: Contiguous axial images of the head were obtained without the use of intravenous contrast . PRIORS: 04/09/2018 FINDINGS: The cerebral hemispheres are without focal lesions. There is no evidence of acute infarct or intracra nial hemorrhage. There is no mass lesion or mass effect. There are no abnormal extra-axial fluid col lections. The ventricles and sulci are prominent consistent with generalized loss of brain substance, appropriate for age. There is deep white matter lucency consistent with chronic microvascular ischem ic disease. The visualized skull and orbits are unremarkable. The visualized paranasal sinuses are cl ear. IMPRESSION: 1. No evidence of acute infarct or intracranial hemorrhage. 2. White matter lucency consistent with chronic microvascular ischemic disease.
--- NOTE | 2018-04-11 00:39 | Event Note ---
Date: 04/11/18 CT ordered since MRI apparently not available tonight. No change from earlier CT on my review.
[2018-04-11] MEDS: HumaLOG SUB-Q SCH ×4 (00:53→18:59)
[2018-04-11] MEDS: KEPPRA 750 MG in NACL 0.9% 100 ML IV SCH ×4 (01:27→19:20)
--- NOTE | 2018-04-11 03:31 | XRay Report ---
FINAL REPORT EXAM: XR ABDOMEN 1V AP HISTORY: NG tube placement TECHNIQUE: Supine AP view of the abdomen. PRIORS: None. FINDINGS: There is a feeding tube in place with the tip near the GE junction. There are several mildly gas dist ended loops of bowel throughout the abdomen in a nonspecific pattern. The bones are unremarkable. IMPRESSION: Feeding tube tip near the GE junction. Advancement recommended.
[2018-04-11 05:00] LABS: Basophils % (Auto) 0.4 % (0.0-1.8); Eosinophils % (Auto) 0.1 % (0.0-4.3); Hematocrit 38.5 % (35.5-45.6); Hemoglobin 12.9 gm/dl (11.8-15.2); Lymphocytes # (Auto) 1.7 K/mm3 (1.2-5.4); Lymphocytes % (Auto) 14.2 % (13.4-35.0); Mean Corpuscular HGB Conc 34 % (32-34); Mean Corpuscular Volume 89 fl (84-94); Monocytes # (Auto) 1.2 K/mm3 (0.0-0.8); Monocytes % (Auto) 10.2 % (0.0-7.3); Red Blood Count 4.35 M/mm3 (3.65-5.03); Red Cell Distribution Width 14.5 % (13.2-15.2)
[2018-04-11 05:08] LABS: Platelet Count 132 K/mm3 (140-440)
[2018-04-11 05:12] LABS: Alanine Aminotransferase 51 units/L (7-56); Albumin 3.4 g/dL (3.9-5); BUN/Creatinine Ratio 7; Blood Urea Nitrogen 7 mg/dL (9-20); Calcium 7.7 mg/dL (8.4-10.2); Hemolysis Index 36
[2018-04-11] MEDS: ZOSYN/NS 4.5GM/100ML 4.5 GM/100 ML VIAL IV SCH ×3 (05:52→21:02)
[2018-04-11] MEDS: NACL 0.9% 1000 ML 1,000 ML IV SCH ×2 (05:52→13:29)
[2018-04-11] MEDS ORDERED: K-DUR PO ONE (08:00)
--- NOTE | 2018-04-11 08:21 | XRay Report ---
AP ABDOMEN: HISTORY: Recheck NG tube placement after advancement. The Dobbhoff tube has been advanced to the descending duodenum since earlier today at 0238 hours. The remainder of the examination is unchanged. IMPRESSION: Feeding tube as described
--- NOTE | 2018-04-11 08:32 | Progress Note ---
Assessment and Plan Assessment and plan: --Febrile illness; follow cultures, antipyretics Empiric antibiotics Zosyn, add Levaquin, supportive care --Hypotension; possible septic shock 500 normal saline fluid bolus, Levophed if no improvement PICC line, placement --Hypokalemia; replace per protocol --Hypomagnesemia; 2 g IV mag sulfate, monitor levels --Hypophosphatemia; replace K-Phos --Hyponatremia; continue IV fluids and closely monitor electrolytes --Rhabdomyolysis; CK level trending down 9880- 9350 Uterus IV hydration and closely monitor renal function and avoid nephrotoxins --Metabolic encephalopathy; closely monitor --Unable to protect airway; intubated on ventilatory support Continue nebulizers as needed, pulmonary following --Metabolic encephalopathy; multifactorial Seizure episode, dementia, hypoglycemia, closely monitor --New onset seizures; seizure precautions Antiepileptic medications, EEG, CT head negative Neurology following, check MRI --Rhabdomyolysis; elevated CPK Gentle hydration, input output monitoring, monitor CK levels Preserved renal function --Hypertension; resume home antihypertensives, when necessary medications --Diabetes mellitus; Accu-Chek sliding scale coverage and ADA diet Insulin as needed --Morbid obesity; BMI 66.1; Patient needs weight reduction when medically stable --Possible obstructive sleep apnea; patient needs sleep studies An BiPAP/CPAP at night --DVT Prophylaxis; Lovenox --CODE STATUS FULL CODE C Care 35 min History Interval history: Patient seen and examined medical records reviewed Remains intubated on ventilatory support, sedated Hypotensive, febrile Not in acute distress, vital signs noted Hospitalist Physical - Constitutional Vitals: Temp Pulse Resp BP Pulse Ox 101.6 F H 59 L 19 90/47 99 04/11/18 04:00 04/11/18 07:20 04/11/18 07:20 04/11/18 07:20 04/11/18 07:20 General appearance: Present: no acute distress, obese (Morbidly obese), other (intubated on vent) - EENT Eyes: Present: PERRL, EOM intact - Respiratory Respiratory effort: normal Respiratory: bilateral: diminished, rhonchi, negative: rales, wheezing - Cardiovascular Rhythm: regular Heart Sounds: Present: S1 & S2 - Extremities Extremities: no ischemia, No edema - Abdominal General gastrointestinal: soft, non-tender, non-distended, normal bowel sounds - Integumentary Integumentary: Present: clear, warm - Psychiatric Psychiatric: other (intubated on vent) - Neurologic Neurologic: other (intubated on vent) Results - Labs CBC & Chem 7: 04/11/18 04:28 04/11/18 04:28 Labs: Laboratory Last Values WBC 12.2 K/mm3 (4.5-11.0) H 04/11/18 04:28 RBC 4.35 M/mm3 (3.65-5.03) 04/11/18 04:28 Hgb 12.9 gm/dl (11.8-15.2) 04/11/18 04:28 Hct 38.5 % (35.5-45.6) 04/11/18 04:28 MCV 89 fl (84-94) 04/11/18 04:28 MCH 30 pg (28-32) 04/11/18 04:28 MCHC 34 % (32-34) 04/11/18 04:28 RDW 14.5 % (13.2-15.2) 04/11/18 04:28 Plt Count 132 K/mm3 (140-440) L 04/11/18 04:28 Lymph % (Auto) 14.2 % (13.4-35.0) 04/11/18 04:28 Saline % (Auto) 10.2 % (0.0-7.3) H 04/11/18 04:28 Eos % (Auto) 0.1 % (0.0-4.3) 04/11/18 04:28 Baso % (Auto) 0.4 % (0.0-1.8) 04/11/18 04:28 Lymph # 1.7 K/mm3 (1.2-5.4) 04/11/18 04:28 Saline # 1.2 K/mm3 (0.0-0.8) H 04/11/18 04:28 Eos # 0.0 K/mm3 (0.0-0.4) 04/11/18 04:28 Baso # 0.0 K/mm3 (0.0-0.1) 04/11/18 04:28 Seg Neutrophils % 75.1 % (40.0-70.0) H 04/11/18 04:28 Seg Neutrophils # 9.1 K/mm3 (1.8-7.7) H 04/11/18 04:28 APTT 24.8 Sec. (24.2-36.6) 04/09/18 23:16 POC ABG pH 7.495 (7.35-7.45) H 04/11/18 03:52 POC ABG pCO2 32.4 (35-45) L 04/11/18 03:52 POC ABG pO2 105 (80-105) 04/11/18 03:52 POC ABG HCO3 25.0 04/11/18 03:52 POC ABG Total CO2 26 04/11/18 03:52 POC ABG O2 Sat 99 04/11/18 03:52 POC ABG Base Excess 2 04/11/18 03:52 FiO2 40 % 04/11/18 03:52 Sodium 133 mmol/L (137-145) L 04/11/18 04:28 Potassium 3.5 mmol/L (3.6-5.0) L 04/11/18 04:28 Chloride 95.1 mmol/L (98-107) L 04/11/18 04:28 Carbon Dioxide 25 mmol/L (22-30) 04/11/18 04:28 Anion Gap 16 mmol/L 04/11/18 04:28 BUN 7 mg/dL (9-20) L 04/11/18 04:28 Creatinine 1.0 mg/dL (0.8-1.5) 04/11/18 04:28 Estimated GFR > 60 ml/min 04/11/18 04:28 BUN/Creatinine Ratio 7 % 04/11/18 04:28 Glucose 206 mg/dL (75-100) H 04/11/18 04:28 POC Glucose 178 (70-105) H 04/11/18 05:22 Hemoglobin A1c 6.4 % (4-6) H 04/11/18 04:28 Lactic Acid 1.70 mmol/L (0.7-2.0) 04/10/18 02:47 Calcium 7.7 mg/dL (8.4-10.2) L 04/11/18 04:28 Phosphorus 1.80 mg/dL (2.5-4.5) L 04/11/18 04:28 Magnesium 1.50 mg/dL (1.7-2.3) L 04/11/18 04:28 Total Bilirubin 4.10 mg/dL (0.1-1.2) H 04/11/18 04:28 AST 168 units/L (5-40) H 04/11/18 04:28 ALT 51 units/L (7-56) 04/11/18 04:28 Alkaline Phosphatase 54 units/L (35-129) 04/11/18 04:28 Total Creatine Kinase 9352 units/L (55-170) H 04/11/18 04:28 CK-MB (CK-2) 30.0 ng/mL (0.0-4.0) H 04/10/18 10:37 CK-MB (CK-2) Rel Index 0.3 (0-4) 04/10/18 10:37 Troponin T < 0.010 ng/mL (0.00-0.029) 04/10/18 10:37 Total Protein 6.4 g/dL (6.3-8.2) 04/11/18 04:28 Albumin 3.4 g/dL (3.9-5) L 04/11/18 04:28 Albumin/Globulin Ratio 1.1 % 04/11/18 04:28 Urine Color Yellow (Yellow) 04/10/18 01:07 Urine Turbidity Clear (Clear) 04/10/18 01:07 Urine pH 5.0 (5.0-7.0) 04/10/18 01:07 Ur Specific [place] 1.019 (1.003-1.030) 04/10/18 01:07 Urine Protein 100 mg/dl mg/dL (Negative) 04/10/18 01:07 Urine Glucose (UA) Neg mg/dL (Negative) 04/10/18 01:07 Urine Ketones Neg mg/dL (Negative) 04/10/18 01:07 Urine Blood Lg (Negative) 04/10/18 01:07 Urine Nitrite Neg (Negative) 04/10/18 01:07 Urine Bilirubin Neg (Negative) 04/10/18 01:07 Urine Urobilinogen < 2.0 mg/dL (<2.0) 04/10/18 01:07 Ur Leukocyte Esterase Neg (Negative) 04/10/18 01:07 Urine WBC (Auto) 1.0 /HPF (0.0-6.0) 04/10/18 01:07 Urine RBC (Auto) 9.0 /HPF (0.0-6.0) 04/10/18 01:07 U Epithel Cells (Auto) < 1.0 /HPF (0-13.0) 04/10/18 01:07 Urine Mucus Few /HPF 04/10/18 01:07
[2018-04-11] MEDS ORDERED: KPHOS 40 MMOL in NACL 0.9% 500 ML 500 ML IV ONE (08:35)
[2018-04-11] MEDS ORDERED: MAGNESIUM SULFATE 2GM/50ML 2 GM/50 ML BAG IV ONE (08:35)
[2018-04-11] MEDS ORDERED: MAGNESIUM SULFATE 4GM/100ML 4 GM/100 ML BAG IV ONE (09:00)
[2018-04-11] MEDS: LOVENOX SUB-Q SCH (09:01)
[2018-04-11] MEDS ORDERED: KPHOS 45 MMOL in NACL 0.9% 500 ML 500 ML IV ONE (09:30)
[2018-04-11] MEDS: SODIUM CHLORIDE FLUSH SYRINGE 10 ML IV SCH ×2 (09:50→21:02)
[2018-04-11] MEDS ORDERED: NACL 0.9% 500 ML IV ONE (10:00)
[2018-04-11] MEDS ORDERED: LEVOPHED DRIP 4 MG/NS 250 ML 4 MG/250 ML BAG IV SCH (10:00)
[2018-04-11] MEDS ORDERED: VANCOMYCIN/NS 1 GM/250 ML 1 GM/250 ML BAG IV SCH (11:00)
--- NOTE | 2018-04-11 11:33 | Progress Note ---
Assessment and Plan Acute Hypoxemic Respiratory Failure New Onset Seizures (presumed secondary to Hypoglycemia) Acute Encephalopathy (Toxic -Metabolic) Diabetes Type II Rhabdomyolysis Obesity HTN Possible JOE Hyponatremia (mild) Hypomagnesemia leucocytosis - AB's broadened - get CRP and lactate levels and trend as necessary to aid clinical decision making - continue to wean supplemental oxygen to keep O2 sats > 90% - continue bronchodilators with pulmonary hygiene per RT - Reduced set rate to 12/min - VAP bundle addressed - daily SAT's - Daily SBT assessment - titrate sedatives for RASS 0 to -1 - neurology evaluation ongoing - discontinued foly catheter - RICC line ordered - get rapid flu - get CRP level to aid clinical decision making / AB's de-escalation - GI & VTE prophylaxis - trend CpK level - continue IVF fluids re: Rhabdo - replace electrolytes - continue AED's (Keppra) - continue pertinent home med's - continue enteral nutrition as tolerated - continue accuchecks q6h with glycemic control per SSI for target BG 140-180 mg /dL - will likely need outpatient PSG to evaluate JOE - continue other care per attending / other claims consultant's CODE STATUS: FULL CODE The high probability of a clinically significant, sudden or life-threatening deterioration of the [cardiac, neurology] system(s) required my full and direct attention, intervention and personal management. The aggregate critical care time was [40] minutes without overlap. Time includes spent on; [x] Data Review and interpretation [x] Patient assessment and monitoring of vital signs [x] Documentation [x] Medication orders and management Subjective Date of service: 04/11/18 Principal diagnosis: Ac Hypoxemic Resp Failure; Seizures; Encephalopathy; DM II; Rhabdomyolysis Interval history: Patient is seen today for: Acute Hypoxemic Respiratory Failure; New Onset Seizures (presumed secondary to Hypoglycemia); Acute Encephalopathy (Toxic - Metabolic); Diabetes Type II; Rhabdomyolysis Seen and examined at bedside; 24hour events reviewed; nursing and respiratory care staff consulted; no adverse overnight events reported to me; resting peacefully in bed; AMS is persistent; son is visiting; s/p PICC line; No emesis or overt aspiration; fever of 101.6F overnight; no new issues otherwise Objective Vital Signs - 12hr 04/10/18 04/10/18 04/10/18 23:40 23:50 23:55 Temperature Pulse Rate 63 99 H 102 H Respiratory 18 21 Rate Blood Pressure 145/68 145/68 145/68 O2 Sat by Pulse 99 100 99 Oximetry 04/11/18 04/11/18 04/11/18 00:00 00:30 00:40 Temperature 101.9 F H Pulse Rate 85 64 Respiratory 24 19 Rate Blood Pressure 138/63 138/63 O2 Sat by Pulse 99 98 99 Oximetry 04/11/18 04/11/18 04/11/18 00:50 01:00 01:10 Temperature Pulse Rate 83 63 72 Respiratory 18 18 20 Rate Blood Pressure 138/63 138/63 145/68 O2 Sat by Pulse 99 100 99 Oximetry 04/11/18 04/11/18 04/11/18 01:20 01:30 01:40 Temperature Pulse Rate 91 H 88 91 H Respiratory 22 23 23 Rate Blood Pressure 145/68 145/68 133/51 O2 Sat by Pulse 99 98 99 Oximetry 04/11/18 04/11/18 04/11/18 01:50 02:00 02:10 Temperature Pulse Rate 92 H 89 89 Respiratory 21 21 20 Rate Blood Pressure 133/51 133/51 133/51 O2 Sat by Pulse 98 99 98 Oximetry 04/11/18 04/11/18 04/11/18 02:20 02:30 02:40 Temperature Pulse Rate 90 81 71 Respiratory 22 22 18 Rate Blood Pressure 133/51 133/51 133/58 O2 Sat by Pulse 99 99 100 Oximetry 04/11/18 04/11/18 04/11/18 02:50 03:00 03:10 Temperature Pulse Rate 80 89 78 Respiratory 15 17 20 Rate Blood Pressure 133/58 133/58 135/53 O2 Sat by Pulse 99 98 99 Oximetry 04/11/18 04/11/18 04/11/18 03:20 03:30 03:34 Temperature Pulse Rate 94 H 64 78 Respiratory 19 18 Rate Blood Pressure 135/53 135/53 120/58 O2 Sat by Pulse 99 100 99 Oximetry 04/11/18 04/11/18 04/11/18 03:40 03:50 04:00 Temperature 101.6 F H Pulse Rate 81 68 79 Respiratory 22 20 17 Rate Blood Pressure 135/53 135/53 135/53 O2 Sat by Pulse 99 99 99 Oximetry 04/11/18 04/11/18 04/11/18 04:10 04:20 04:30 Temperature Pulse Rate 67 86 88 Respiratory 18 21 20 Rate Blood Pressure 120/58 120/58 120/58 O2 Sat by Pulse 97 97 98 Oximetry 04/11/18 04/11/18 04/11/18 04:40 04:50 05:00 Temperature Pulse Rate 69 66 62 Respiratory 21 18 18 Rate Blood Pressure 111/60 111/60 111/60 O2 Sat by Pulse 99 99 99 Oximetry 04/11/18 04/11/18 04/11/18 05:10 05:20 05:30 Temperature Pulse Rate 61 75 65 Respiratory 18 18 18 Rate Blood Pressure 122/58 122/58 122/58 O2 Sat by Pulse 100 99 99 Oximetry 04/11/18 04/11/18 04/11/18 05:40 05:50 06:00 Temperature Pulse Rate 62 64 79 Respiratory 18 18 19 Rate Blood Pressure 122/58 122/58 122/58 O2 Sat by Pulse 99 99 100 Oximetry 04/11/18 04/11/18 04/11/18 06:10 06:20 06:30 Temperature Pulse Rate 61 61 62 Respiratory 18 18 18 Rate Blood Pressure 122/61 122/61 122/61 O2 Sat by Pulse 99 99 98 Oximetry 04/11/18 04/11/18 04/11/18 06:40 06:50 07:00 Temperature Pulse Rate 57 L 56 L 54 L Respiratory 18 18 18 Rate Blood Pressure 82/42 82/42 90/47 O2 Sat by Pulse 98 98 98 Oximetry 04/11/18 04/11/18 04/11/18 07:10 07:20 08:29 Temperature Pulse Rate 54 L 59 L 68 Respiratory 18 19 Rate Blood Pressure 90/47 90/47 98/45 O2 Sat by Pulse 100 99 100 Oximetry Constitutional: no acute distress, other (Elderly looking AAM, normocephalic and atraumatic with mildly increased respiratory effort on MVS) Eyes: non-icteric ENT: oropharynx moist, other (ETT 23 cm STEPHANIE) Neck: supple, no lymphadenopathy, no JVD, other (large neck circumference) Effort: mildly labored Ascultation: Bilateral: diminished breath sounds, rhonchi Percussion: Bilateral: not dull Cardiovascular: regular rate and rhythm Gastrointestinal: normoactive bowel sounds, soft, non-tender, non-distended, other (protuberant) Integumentary: normal Extremities: no cyanosis, no edema, pulses normal, no ischemia or petechiae Neurologic: non-focal exam (grossly), unable to assess Psychiatric: other (unable to assess) CBC and BMP: 04/11/18 04:28 04/11/18 04:28 ABG, PT/INR, D-dimer: ABG POC ABG pH 7.495 (7.35-7.45) H 04/11/18 03:52 POC ABG pCO2 32.4 (35-45) L 04/11/18 03:52 POC ABG pO2 105 (80-105) 04/11/18 03:52 POC ABG HCO3 25.0 04/11/18 03:52 POC ABG Total CO2 26 04/11/18 03:52 POC ABG O2 Sat 99 04/11/18 03:52 Abnormal lab findings: Abnormal Labs 04/09/18 04/09/18 04/09/18 23:16 23:16 23:16 WBC 13.6 H Plt Count Lymph % (Auto) 9.4 L [place] % (Auto) Lymph # [place] # Seg Neutrophils % 87.3 H Seg Neutrophils # 11.9 H POC ABG pH POC ABG pCO2 POC ABG pO2 Sodium 132 L Potassium Chloride 92.7 L BUN Glucose 143 H POC Glucose Hemoglobin A1c Lactic Acid 2.10 H* Calcium Phosphorus Magnesium Total Bilirubin 2.20 H AST 107 H Total Creatine Kinase CK-MB (CK-2) Albumin 04/10/18 04/10/18 04/10/18 00:38 00:55 01:13 WBC Plt Count Lymph % (Auto) [place] % (Auto) Lymph # [place] # Seg Neutrophils % Seg Neutrophils # POC ABG pH POC ABG pCO2 POC ABG pO2 Sodium Potassium Chloride BUN Glucose POC Glucose 117 H 121 H Hemoglobin A1c Lactic Acid 2.10 H* Calcium Phosphorus Magnesium Total Bilirubin AST Total Creatine Kinase CK-MB (CK-2) Albumin 04/10/18 04/10/18 04/10/18 02:10 03:51 04:07 WBC 14.0 H Plt Count Lymph % (Auto) 7.5 L [place] % (Auto) Lymph # 1.1 L [place] # 1.0 H Seg Neutrophils % 84.9 H Seg Neutrophils # 11.8 H POC ABG pH POC ABG pCO2 POC ABG pO2 Sodium Potassium Chloride BUN Glucose POC Glucose 153 H 158 H Hemoglobin A1c Lactic Acid Calcium Phosphorus Magnesium Total Bilirubin AST Total Creatine Kinase CK-MB (CK-2) Albumin 04/10/18 04/10/18 04/10/18 04:07 06:56 09:48 WBC Plt Count Lymph % (Auto) [place] % (Auto) Lymph # [place] # Seg Neutrophils % Seg Neutrophils # POC ABG pH POC ABG pCO2 POC ABG pO2 Sodium 130 L Potassium Chloride 93.4 L BUN Glucose 180 H POC Glucose 251 H 245 H Hemoglobin A1c Lactic Acid Calcium 7.9 L D Phosphorus Magnesium Total Bilirubin AST Total Creatine Kinase 7857 H CK-MB (CK-2) 34.3 H Albumin 04/10/18 04/10/18 04/10/18 10:37 12:44 17:31 WBC Plt Count Lymph % (Auto) [place] % (Auto) Lymph # [place] # Seg Neutrophils % Seg Neutrophils # POC ABG pH POC ABG pCO2 45.6 H POC ABG pO2 374 H Sodium Potassium Chloride BUN Glucose POC Glucose 348 H Hemoglobin A1c Lactic Acid Calcium Phosphorus Magnesium Total Bilirubin AST Total Creatine Kinase 9880 H CK-MB (CK-2) 30.0 H Albumin 04/10/18 04/11/18 04/11/18 23:36 03:52 04:28 WBC 12.2 H Plt Count 132 L Lymph % (Auto) [place] % (Auto) 10.2 H Lymph # [place] # 1.2 H Seg Neutrophils % 75.1 H Seg Neutrophils # 9.1 H POC ABG pH 7.495 H POC ABG pCO2 32.4 L POC ABG pO2 Sodium Potassium Chloride BUN Glucose POC Glucose 148 H Hemoglobin A1c Lactic Acid Calcium Phosphorus Magnesium Total Bilirubin AST Total Creatine Kinase CK-MB (CK-2) Albumin 04/11/18 04/11/18 04/11/18 04:28 04:28 05:22 WBC Plt Count Lymph % (Auto) [place] % (Auto) Lymph # [place] # Seg Neutrophils % Seg Neutrophils # POC ABG pH POC ABG pCO2 POC ABG pO2 Sodium 133 L Potassium 3.5 L Chloride 95.1 L BUN 7 L Glucose 206 H POC Glucose 178 H Hemoglobin A1c 6.4 H Lactic Acid Calcium 7.7 L Phosphorus 1.80 L Magnesium 1.50 L Total Bilirubin 4.10 H AST 168 H Total Creatine Kinase 9352 H CK-MB (CK-2) Albumin 3.4 L Chest x-ray: pending Allied health notes reviewed: nursing
[2018-04-11] MEDS ORDERED: NACL 0.9% 500 ML 500 ML IV ONE (12:00)
[2018-04-11] MEDS: VANCOMYCIN 1,500 MG in NACL 0.9% 500 ML 500 ML IV SCH (13:16)
[2018-04-11] MEDS: PEPCID IV SCH ×2 (13:17→21:02)
[2018-04-11] MEDS ORDERED: VASELINE LIP THERAPY TP PRN (13:33)
[2018-04-11] MEDS ORDERED: ARTIFICIAL TEARS OPHTH OINT OU PRN (13:33)
[2018-04-11] MEDS ORDERED: ZOSYN/NS 4.5GM/100ML 4.5 GM/100 ML VIAL IV SCH (14:00)
[2018-04-11] MEDS: DUONEB *Not for PRN Use IH SCH ×2 (14:06→19:11)
--- NOTE | 2018-04-11 14:47 | XRay Report ---
AP CHEST: HISTORY: PICC placement A left arm PICC has been inserted which terminates near the cavoatrial junction. Endotracheal tube and GI tube are in adequate position. The remainder of the examination is unchanged since 04/10/18. IMPRESSION: The left arm PICC terminates near the cavoatrial junction. No acute cardiopulmonary process identified.
[2018-04-11] MEDS ORDERED: Vasostrict 20 UNIT in NACL 0.9% 100 ML IV SCH (17:00)
--- NOTE | 2018-04-11 19:19 | Progress Note ---
Assessment and Plan Impression: 1. Hypoxic-iscemic encephalopathy 2. Complex partial seizures Plan 1. Greater spontaneous movement appears to be an improvement as I discussed with his son. 2. Continue Keppra. 3. Repeat CT was unchanged. 4. MRI brain when possible. I told his son if negative, need to give him time to further improve. 30 min critical care time spent including review of multiple CT images. Subjective Date of service: 04/11/18 Principal diagnosis: Ac Hypoxemic Resp Failure; Seizures; Encephalopathy; DM II; Rhabdomyolysis Interval history: HPI: This 78 year old male is seen in followup for coma after seizure, perhaps from hypoglycemia. EEG shows slowing left frontal and at times right frontocentral but no epileptiform activity. Having hypotension which prevents doing MRI since MRI compatible IV pump is broken. Objective - Exam Narrative Exam: General appearance: well developed but borderline obese (per BMI) lae 70's male turning head side to side, intubated. Neurologic Exam: yawning and turning head side to side but no obedience of commands. Some eye opening on his own. No blink to threat on either side, Doll's eyes positive but less for left lateral excursion. Pupils react. Corneals react, some grimacing bilaterally associated with yawning. Increased tone bilaterally in the upper extremities. No withdrawal to nail bed pressure or palmar rub but extends left upper extremity a little bit to supraorbital pressure. Increased tone in right lower extremity. Withdraws right lower extremity much better than left to plantar rub with some adduction right knee. Wiggles toes slowly on the left spontaneously perhaps to stimulus of foot board touching the foot, but not to command (does not appear to be seizure activity). Some spontaneous knee flexion briefly bilaterally. - Vital Sign Vital Signs - 12hr 04/11/18 04/11/18 04/11/18 07:20 07:30 07:40 Temperature Pulse Rate 59 L 66 68 Pulse Rate [ Bilateral Throughout] Pulse Rate [ From Monitor] Respiratory 19 17 15 Rate Respiratory Rate [Bilateral Throughout] Blood Pressure 90/47 136/64 139/61 O2 Sat by Pulse 99 99 99 Oximetry 04/11/18 04/11/18 04/11/18 07:50 08:00 08:10 Temperature 99.8 F H Pulse Rate 62 61 58 L Pulse Rate [ Bilateral Throughout] Pulse Rate [ 61 From Monitor] Respiratory 18 18 18 Rate Respiratory Rate [Bilateral Throughout] Blood Pressure 139/61 139/61 121/55 O2 Sat by Pulse 99 100 99 Oximetry 04/11/18 04/11/18 04/11/18 08:20 08:29 08:30 Temperature Pulse Rate 59 L 68 58 L Pulse Rate [ Bilateral Throughout] Pulse Rate [ From Monitor] Respiratory 18 18 Rate Respiratory Rate [Bilateral Throughout] Blood Pressure 139/61 98/45 139/61 O2 Sat by Pulse 99 100 99 Oximetry 04/11/18 04/11/18 04/11/18 08:40 08:50 09:00 Temperature Pulse Rate 58 L 62 58 L Pulse Rate [ Bilateral Throughout] Pulse Rate [ From Monitor] Respiratory 15 16 15 Rate Respiratory Rate [Bilateral Throughout] Blood Pressure 98/45 121/55 121/55 O2 Sat by Pulse 100 100 100 Oximetry 04/11/18 04/11/18 04/11/18 09:10 09:20 09:30 Temperature Pulse Rate 56 L 60 62 Pulse Rate [ Bilateral Throughout] Pulse Rate [ From Monitor] Respiratory 16 16 16 Rate Respiratory Rate [Bilateral Throughout] Blood Pressure 122/53 122/53 122/53 O2 Sat by Pulse 99 100 98 Oximetry 04/11/18 04/11/18 04/11/18 09:40 09:50 10:00 Temperature Pulse Rate 54 L 58 L 54 L Pulse Rate [ Bilateral Throughout] Pulse Rate [ From Monitor] Respiratory 16 16 16 Rate Respiratory Rate [Bilateral Throughout] Blood Pressure 85/40 93/46 89/42 O2 Sat by Pulse 99 99 99 Oximetry 04/11/18 04/11/18 04/11/18 10:10 10:20 10:30 Temperature Pulse Rate 56 L 57 L 63 Pulse Rate [ Bilateral Throughout] Pulse Rate [ From Monitor] Respiratory 16 15 17 Rate Respiratory Rate [Bilateral Throughout] Blood Pressure 89/43 89/43 134/66 O2 Sat by Pulse 100 100 99 Oximetry 04/11/18 04/11/18 04/11/18 10:40 10:50 11:00 Temperature Pulse Rate 61 79 82 Pulse Rate [ Bilateral Throughout] Pulse Rate [ From Monitor] Respiratory 17 19 22 Rate Respiratory Rate [Bilateral Throughout] Blood Pressure 145/72 145/72 145/72 O2 Sat by Pulse 99 99 99 Oximetry 04/11/18 04/11/18 04/11/18 11:10 11:20 11:30 Temperature Pulse Rate 74 69 58 L Pulse Rate [ Bilateral Throughout] Pulse Rate [ From Monitor] Respiratory 18 19 17 Rate Respiratory Rate [Bilateral Throughout] Blood Pressure 145/72 141/64 141/64 O2 Sat by Pulse 98 96 97 Oximetry 04/11/18 04/11/18 04/11/18 11:40 11:50 12:00 Temperature 99.2 F Pulse Rate 58 L 60 68 Pulse Rate [ Bilateral Throughout] Pulse Rate [ 68 From Monitor] Respiratory 17 16 21 Rate Respiratory Rate [Bilateral Throughout] Blood Pressure 124/58 124/58 124/58 O2 Sat by Pulse 97 97 97 Oximetry 04/11/18 04/11/18 04/11/18 12:10 12:20 12:30 Temperature Pulse Rate 62 60 58 L Pulse Rate [ Bilateral Throughout] Pulse Rate [ From Monitor] Respiratory 17 16 11 L Rate Respiratory Rate [Bilateral Throughout] Blood Pressure 124/58 124/58 124/58 O2 Sat by Pulse 99 99 98 Oximetry 04/11/18 04/11/18 04/11/18 12:40 12:50 12:54 Temperature Pulse Rate 64 75 70 Pulse Rate [ Bilateral Throughout] Pulse Rate [ From Monitor] Respiratory 15 14 Rate Respiratory Rate [Bilateral Throughout] Blood Pressure 124/58 124/58 O2 Sat by Pulse 99 99 98 Oximetry 04/11/18 04/11/18 04/11/18 13:00 13:10 13:20 Temperature Pulse Rate 65 67 61 Pulse Rate [ Bilateral Throughout] Pulse Rate [ From Monitor] Respiratory 12 17 15 Rate Respiratory Rate [Bilateral Throughout] Blood Pressure 124/58 124/58 135/65 O2 Sat by Pulse 98 99 99 Oximetry 04/11/18 04/11/18 04/11/18 13:30 13:40 13:50 Temperature Pulse Rate 67 72 55 L Pulse Rate [ Bilateral Throughout] Pulse Rate [ From Monitor] Respiratory 21 18 16 Rate Respiratory Rate [Bilateral Throughout] Blood Pressure 135/65 134/66 134/66 O2 Sat by Pulse 99 98 100 Oximetry 04/11/18 04/11/18 04/11/18 14:00 14:06 14:10 Temperature Pulse Rate 61 58 L Pulse Rate [ 67 Bilateral Throughout] Pulse Rate [ From Monitor] Respiratory 13 13 Rate Respiratory 18 Rate [Bilateral Throughout] Blood Pressure 134/66 90/49 O2 Sat by Pulse 99 100 Oximetry 04/11/18 04/11/18 04/11/18 14:19 14:20 14:30 Temperature Pulse Rate 78 72 Pulse Rate [ 65 Bilateral Throughout] Pulse Rate [ From Monitor] Respiratory 20 21 Rate Respiratory 20 Rate [Bilateral Throughout] Blood Pressure 132/98 90/49 O2 Sat by Pulse 100 99 Oximetry 04/11/18 04/11/18 04/11/18 14:40 14:50 15:00 Temperature Pulse Rate 61 64 65 Pulse Rate [ Bilateral Throughout] Pulse Rate [ From Monitor] Respiratory 14 16 22 Rate Respiratory Rate [Bilateral Throughout] Blood Pressure 133/62 133/62 133/62 O2 Sat by Pulse 100 100 99 Oximetry 04/11/18 04/11/18 04/11/18 15:10 15:20 15:30 Temperature Pulse Rate 74 71 56 L Pulse Rate [ Bilateral Throughout] Pulse Rate [ From Monitor] Respiratory 18 17 16 Rate Respiratory Rate [Bilateral Throughout] Blood Pressure 140/70 140/70 140/70 O2 Sat by Pulse 98 98 99 Oximetry 04/11/18 04/11/18 04/11/18 15:40 15:50 16:00 Temperature 100.4 F H Pulse Rate 57 L 58 L 57 L Pulse Rate [ Bilateral Throughout] Pulse Rate [ 68 From Monitor] Respiratory 14 13 22 Rate Respiratory Rate [Bilateral Throughout] Blood Pressure 132/58 132/58 140/70 O2 Sat by Pulse 99 100 97 Oximetry 04/11/18 04/11/18 04/11/18 16:10 16:20 16:30 Temperature Pulse Rate 57 L 69 74 Pulse Rate [ Bilateral Throughout] Pulse Rate [ From Monitor] Respiratory 13 15 17 Rate Respiratory Rate [Bilateral Throughout] Blood Pressure 99/49 99/49 99/49 O2 Sat by Pulse 100 100 100 Oximetry 04/11/18 04/11/18 04/11/18 16:40 16:50 16:59 Temperature Pulse Rate 73 72 77 Pulse Rate [ Bilateral Throughout] Pulse Rate [ From Monitor] Respiratory 16 19 Rate Respiratory Rate [Bilateral Throughout] Blood Pressure 99/49 99/49 O2 Sat by Pulse 100 99 99 Oximetry 04/11/18 04/11/18 04/11/18 17:00 17:10 17:20 Temperature Pulse Rate 70 63 58 L Pulse Rate [ Bilateral Throughout] Pulse Rate [ From Monitor] Respiratory 19 19 17 Rate Respiratory Rate [Bilateral Throughout] Blood Pressure 99/49 153/79 153/79 O2 Sat by Pulse 99 99 99 Oximetry 04/11/18 04/11/18 04/11/18 17:30 17:40 17:50 Temperature Pulse Rate 54 L 67 71 Pulse Rate [ Bilateral Throughout] Pulse Rate [ From Monitor] Respiratory 15 19 18 Rate Respiratory Rate [Bilateral Throughout] Blood Pressure 153/79 144/68 144/68 O2 Sat by Pulse 99 99 99 Oximetry 04/11/18 04/11/18 04/11/18 18:00 18:10 18:20 Temperature Pulse Rate 69 58 L 74 Pulse Rate [ Bilateral Throughout] Pulse Rate [ From Monitor] Respiratory 15 14 18 Rate Respiratory Rate [Bilateral Throughout] Blood Pressure 144/68 142/71 142/71 O2 Sat by Pulse 97 99 100 Oximetry 04/11/18 04/11/18 04/11/18 18:30 19:11 19:13 Temperature Pulse Rate 69 73 Pulse Rate [ 61 Bilateral Throughout] Pulse Rate [ From Monitor] Respiratory 18 Rate Respiratory 18 Rate [Bilateral Throughout] Blood Pressure 142/71 150/75 O2 Sat by Pulse 100 100 Oximetry - Laboratory Findings CBC and BMP: 04/11/18 04:28 04/11/18 04:28 Abnormal Lab Findings: Abnormal Labs 04/09/18 04/09/18 04/09/18 23:16 23:16 23:16 WBC 13.6 H Plt Count Lymph % (Auto) 9.4 L [place] % (Auto) Lymph # [place] # Seg Neutrophils % 87.3 H Seg Neutrophils # 11.9 H POC ABG pH POC ABG pCO2 POC ABG pO2 Sodium 132 L Potassium Chloride 92.7 L BUN Glucose 143 H POC Glucose Hemoglobin A1c Lactic Acid 2.10 H* Calcium Phosphorus Magnesium Total Bilirubin 2.20 H AST 107 H Total Creatine Kinase CK-MB (CK-2) C-Reactive Protein Albumin 04/10/18 04/10/18 04/10/18 00:38 00:55 01:13 WBC Plt Count Lymph % (Auto) [place] % (Auto) Lymph # [place] # Seg Neutrophils % Seg Neutrophils # POC ABG pH POC ABG pCO2 POC ABG pO2 Sodium Potassium Chloride BUN Glucose POC Glucose 117 H 121 H Hemoglobin A1c Lactic Acid 2.10 H* Calcium Phosphorus Magnesium Total Bilirubin AST Total Creatine Kinase CK-MB (CK-2) C-Reactive Protein Albumin 04/10/18 04/10/18 04/10/18 02:10 03:51 04:07 WBC 14.0 H Plt Count Lymph % (Auto) 7.5 L [place] % (Auto) Lymph # 1.1 L [place] # 1.0 H Seg Neutrophils % 84.9 H Seg Neutrophils # 11.8 H POC ABG pH POC ABG pCO2 POC ABG pO2 Sodium Potassium Chloride BUN Glucose POC Glucose 153 H 158 H Hemoglobin A1c Lactic Acid Calcium Phosphorus Magnesium Total Bilirubin AST Total Creatine Kinase CK-MB (CK-2) C-Reactive Protein Albumin 04/10/18 04/10/18 04/10/18 04:07 06:56 09:48 WBC Plt Count Lymph % (Auto) [place] % (Auto) Lymph # [place] # Seg Neutrophils % Seg Neutrophils # POC ABG pH POC ABG pCO2 POC ABG pO2 Sodium 130 L Potassium Chloride 93.4 L BUN Glucose 180 H POC Glucose 251 H 245 H Hemoglobin A1c Lactic Acid Calcium 7.9 L D Phosphorus Magnesium Total Bilirubin AST Total Creatine Kinase 7857 H CK-MB (CK-2) 34.3 H C-Reactive Protein Albumin 04/10/18 04/10/18 04/10/18 10:37 12:44 17:31 WBC Plt Count Lymph % (Auto) [place] % (Auto) Lymph # [place] # Seg Neutrophils % Seg Neutrophils # POC ABG pH POC ABG pCO2 45.6 H POC ABG pO2 374 H Sodium Potassium Chloride BUN Glucose POC Glucose 348 H Hemoglobin A1c Lactic Acid Calcium Phosphorus Magnesium Total Bilirubin AST Total Creatine Kinase 9880 H CK-MB (CK-2) 30.0 H C-Reactive Protein Albumin 04/10/18 04/11/18 04/11/18 23:36 03:52 04:28 WBC 12.2 H Plt Count 132 L Lymph % (Auto) [place] % (Auto) 10.2 H Lymph # [place] # 1.2 H Seg Neutrophils % 75.1 H Seg Neutrophils # 9.1 H POC ABG pH 7.495 H POC ABG pCO2 32.4 L POC ABG pO2 Sodium Potassium Chloride BUN Glucose POC Glucose 148 H Hemoglobin A1c Lactic Acid Calcium Phosphorus Magnesium Total Bilirubin AST Total Creatine Kinase CK-MB (CK-2) C-Reactive Protein Albumin 04/11/18 04/11/18 04/11/18 04:28 04:28 05:22 WBC Plt Count Lymph % (Auto) [place] % (Auto) Lymph # [place] # Seg Neutrophils % Seg Neutrophils # POC ABG pH POC ABG pCO2 POC ABG pO2 Sodium 133 L Potassium 3.5 L Chloride 95.1 L BUN 7 L Glucose 206 H POC Glucose 178 H Hemoglobin A1c 6.4 H Lactic Acid Calcium 7.7 L Phosphorus 1.80 L Magnesium 1.50 L Total Bilirubin 4.10 H AST 168 H Total Creatine Kinase 9352 H CK-MB (CK-2) C-Reactive Protein Albumin 3.4 L 04/11/18 04/11/18 04/11/18 11:28 13:43 17:30 WBC Plt Count Lymph % (Auto) [place] % (Auto) Lymph # [place] # Seg Neutrophils % Seg Neutrophils # POC ABG pH POC ABG pCO2 POC ABG pO2 Sodium Potassium Chloride BUN Glucose POC Glucose 196 H 142 H Hemoglobin A1c Lactic Acid Calcium Phosphorus Magnesium Total Bilirubin AST Total Creatine Kinase CK-MB (CK-2) C-Reactive Protein 7.20 H Albumin 04/11/18 18:59 WBC Plt Count Lymph % (Auto) [place] % (Auto) Lymph # [place] # Seg Neutrophils % Seg Neutrophils # POC ABG pH 7.489 H POC ABG pCO2 34.5 L POC ABG pO2 Sodium Potassium Chloride BUN Glucose POC Glucose Hemoglobin A1c Lactic Acid Calcium Phosphorus Magnesium Total Bilirubin AST Total Creatine Kinase CK-MB (CK-2) C-Reactive Protein Albumin
[2018-04-12] MEDS: KEPPRA 750 MG in NACL 0.9% 100 ML IV SCH ×4 (00:03→20:10)
[2018-04-12] MEDS: NACL 0.9% 1000 ML 1,000 ML IV SCH ×2 (00:03→09:13)
[2018-04-12] MEDS: HumaLOG SUB-Q SCH ×4 (00:07→18:00)
[2018-04-12 04:10] LABS: Basophils # (Auto) 0.1 K/mm3 (0.0-0.1); Basophils % (Auto) 0.7 % (0.0-1.8); Eosinophils # (Auto) 0.1 K/mm3 (0.0-0.4); Eosinophils % (Auto) 1.2 % (0.0-4.3); Hematocrit 34.9 % (35.5-45.6); Lymphocytes # (Auto) 1.8 K/mm3 (1.2-5.4); Lymphocytes % (Auto) 21.7 % (13.4-35.0); Mean Corpuscular HGB Conc 35 % (32-34); Mean Corpuscular Volume 88 fl (84-94); Monocytes # (Auto) 0.9 K/mm3 (0.0-0.8); Monocytes % (Auto) 10.6 % (0.0-7.3); Platelet Count 128 K/mm3 (140-440); Red Blood Count 3.98 M/mm3 (3.65-5.03); Red Cell Distribution Width 14.4 % (13.2-15.2)
[2018-04-12 04:33] LABS: Alanine Aminotransferase 48 units/L (7-56); Albumin 3.1 g/dL (3.9-5); BUN/Creatinine Ratio 8; Blood Urea Nitrogen 6 mg/dL (9-20); Calcium 7.3 mg/dL (8.4-10.2); Hemolysis Index 4
[2018-04-12] MEDS: ZOSYN/NS 4.5GM/100ML 4.5 GM/100 ML VIAL IV SCH (05:42)
[2018-04-12] MEDS: DUONEB *Not for PRN Use IH SCH ×3 (07:54→20:24)
--- NOTE | 2018-04-12 07:56 | Progress Note ---
Assessment and Plan Assessment and plan: 78-year-old male patient with significant history of hypertension diabetes coronary artery disease was admitted through emergency room with history of unresponsivenessat home for unknown. Of time hypoglycemia and seizure activity,Patient was unable to protect his airway and was intubated on ventilatory support admitted to ICU, evaluated and managed by neurology ,pulmonary critical, neuro workup in progress --Metabolic encephalopathy; multifactorial Seizure episode, dementia, hypoglycemia, CT head 2 no acute abnormality, follow MRI neurology feels hypoxic ischemic encephalopathy --Acute respiratory failure hypoxic; requiring intubation and mechanical ventilation Continue current management, pulmonary following, wean and extubate as tolerated --Unable to protect airway; intubated on ventilatory support Continue nebulizers as needed, wean as tolerated and extubate --New onset seizures; seizure precautions Antiepileptic medications, EEG, CT head negative Neurology following, f/u MRI --Hypokalemia/hypophosphatemia replace per protocol --Hyponatremia; resolved --Febrile illness/leukocytosis/possible sepsis; afebrile today Leukocytosis trending down, on empiric antibiotics Follow cultures, supportive care --Rhabdomyolysis; CK level trending down 9880- 5177 Continue IV hydration and closely monitor renal function and avoid nephrotoxins --Hypertension; continue current antihypertensives --Diabetes mellitus; Accu-Chek sliding scale coverage and ADA diet Insulin as needed --Morbid obesity; BMI 66.1; Patient needs weight reduction when medically stable --Possible obstructive sleep apnea; patient needs sleep studies An BiPAP/CPAP at night --DVT Prophylaxis; Lovenox --CODE STATUS FULL CODE Plan of care reviewed with the patient's nurse Consults and recommendations noted and appreciated Cr Care 33 min History Interval history: Patient seen and examined medical records reviewed No new events reported by the nursing No new episodes of seizure The patient is responding opening eyes Remains intubated on ventilatory support Vital signs noted Hospitalist Physical - Constitutional Vitals: Temp Pulse Resp BP Pulse Ox 98.4 F 55 L 14 133/59 100 04/12/18 02:57 04/12/18 06:00 04/12/18 06:00 04/12/18 06:00 04/12/18 06:00 General appearance: Present: no acute distress, obese (Morbidly obese), other (intubated on vent) - EENT Eyes: Present: PERRL, EOM intact - Neck Neck: Present: supple, normal ROM - Respiratory Respiratory effort: normal Respiratory: bilateral: diminished, rhonchi, negative: rales, wheezing - Cardiovascular Rhythm: regular Heart Sounds: Present: S1 & S2 - Extremities Extremities: no ischemia, No edema - Abdominal General gastrointestinal: soft, non-tender, non-distended, normal bowel sounds - Integumentary Integumentary: Present: clear, warm - Psychiatric Psychiatric: appropriate mood/affect, cooperative - Neurologic Neurologic: CNII-XII intact, moves all extremities Results - Labs CBC & Chem 7: 04/12/18 04:00 04/12/18 04:00 Labs: Laboratory Last Values WBC 8.1 K/mm3 (4.5-11.0) 04/12/18 04:00 RBC 3.98 M/mm3 (3.65-5.03) 04/12/18 04:00 Hgb 12.0 gm/dl (11.8-15.2) 04/12/18 04:00 Hct 34.9 % (35.5-45.6) L 04/12/18 04:00 MCV 88 fl (84-94) 04/12/18 04:00 MCH 30 pg (28-32) 04/12/18 04:00 MCHC 35 % (32-34) H 04/12/18 04:00 RDW 14.4 % (13.2-15.2) 04/12/18 04:00 Plt Count 128 K/mm3 (140-440) L 04/12/18 04:00 Lymph % (Auto) 21.7 % (13.4-35.0) 04/12/18 04:00 [place] % (Auto) 10.6 % (0.0-7.3) H 04/12/18 04:00 Eos % (Auto) 1.2 % (0.0-4.3) 04/12/18 04:00 Baso % (Auto) 0.7 % (0.0-1.8) 04/12/18 04:00 Lymph # 1.8 K/mm3 (1.2-5.4) 04/12/18 04:00 [place] # 0.9 K/mm3 (0.0-0.8) H 04/12/18 04:00 Eos # 0.1 K/mm3 (0.0-0.4) 04/12/18 04:00 Baso # 0.1 K/mm3 (0.0-0.1) 04/12/18 04:00 Seg Neutrophils % 65.8 % (40.0-70.0) 04/12/18 04:00 Seg Neutrophils # 5.3 K/mm3 (1.8-7.7) 04/12/18 04:00 APTT 24.8 Sec. (24.2-36.6) 04/09/18 23:16 POC ABG pH 7.454 (7.35-7.45) H 04/12/18 04:04 POC ABG pCO2 37.1 (35-45) 04/12/18 04:04 POC ABG pO2 99 (80-105) 04/12/18 04:04 POC ABG HCO3 26.0 04/12/18 04:04 POC ABG Total CO2 27 04/12/18 04:04 POC ABG O2 Sat 98 04/12/18 04:04 POC ABG Base Excess 2 04/12/18 04:04 FiO2 30 % 04/12/18 04:04 Sodium 140 mmol/L (137-145) D 04/12/18 04:00 Potassium 3.3 mmol/L (3.6-5.0) L 04/12/18 04:00 Chloride 103.7 mmol/L (98-107) 04/12/18 04:00 Carbon Dioxide 26 mmol/L (22-30) 04/12/18 04:00 Anion Gap 14 mmol/L 04/12/18 04:00 BUN 6 mg/dL (9-20) L 04/12/18 04:00 Creatinine 0.8 mg/dL (0.8-1.5) 04/12/18 04:00 Estimated GFR > 60 ml/min 04/12/18 04:00 BUN/Creatinine Ratio 8 % 04/12/18 04:00 Glucose 151 mg/dL (75-100) H 04/12/18 04:00 POC Glucose 136 (70-105) H 04/12/18 05:21 Hemoglobin A1c 6.4 % (4-6) H 04/11/18 04:28 Lactic Acid 1.70 mmol/L (0.7-2.0) 04/10/18 02:47 Calcium 7.3 mg/dL (8.4-10.2) L 04/12/18 04:00 Phosphorus 2.00 mg/dL (2.5-4.5) L 04/12/18 04:00 Magnesium 2.30 mg/dL (1.7-2.3) 04/12/18 04:00 Total Bilirubin 2.80 mg/dL (0.1-1.2) H 04/12/18 04:00 AST 121 units/L (5-40) H 04/12/18 04:00 ALT 48 units/L (7-56) 04/12/18 04:00 Alkaline Phosphatase 51 units/L (35-129) 04/12/18 04:00 Total Creatine Kinase 5177 units/L (55-170) H 04/12/18 04:00 CK-MB (CK-2) 30.0 ng/mL (0.0-4.0) H 04/10/18 10:37 CK-MB (CK-2) Rel Index 0.3 (0-4) 04/10/18 10:37 Troponin T < 0.010 ng/mL (0.00-0.029) 04/10/18 10:37 C-Reactive Protein 7.20 mg/dL (0.00-1.30) H 04/11/18 13:43 Total Protein 5.9 g/dL (6.3-8.2) L 04/12/18 04:00 Albumin 3.1 g/dL (3.9-5) L 04/12/18 04:00 Albumin/Globulin Ratio 1.1 % 04/12/18 04:00 Urine Color Yellow (Yellow) 04/10/18 01:07 Urine Turbidity Clear (Clear) 04/10/18 01:07 Urine pH 5.0 (5.0-7.0) 04/10/18 01:07 Ur Specific [place] 1.019 (1.003-1.030) 04/10/18 01:07 Urine Protein 100 mg/dl mg/dL (Negative) 04/10/18 01:07 Urine Glucose (UA) Neg mg/dL (Negative) 04/10/18 01:07 Urine Ketones Neg mg/dL (Negative) 04/10/18 01:07 Urine Blood Lg (Negative) 04/10/18 01:07 Urine Nitrite Neg (Negative) 04/10/18 01:07 Urine Bilirubin Neg (Negative) 04/10/18 01:07 Urine Urobilinogen < 2.0 mg/dL (<2.0) 04/10/18 01:07 Ur Leukocyte Esterase Neg (Negative) 04/10/18 01:07 Urine WBC (Auto) 1.0 /HPF (0.0-6.0) 04/10/18 01:07 Urine RBC (Auto) 9.0 /HPF (0.0-6.0) 04/10/18 01:07 U Epithel Cells (Auto) < 1.0 /HPF (0-13.0) 04/10/18 01:07 Urine Mucus Few /HPF 04/10/18 01:07 Influenza A (Rapid) Negative (Negative) 04/11/18 15:08 Influenza B (Rapid) Negative (Negative) 04/11/18 15:08 Nutrition/Malnutrition Assess - Dietary Evaluation Nutrition/Malnutrition Findings: Nutrition Notes Start: 04/11/18 10:20 Freq: Status: Active Protocol: Document 04/11/18 10:20 CP (Rec: 04/11/18 11:17 CP [id number]) Co-Sign 04/11/18 10:20 LP Nutrition Notes Need for Assessment generated from: MD Order Initial or Follow up Assessment Current Diagnosis Coronary Artery Disease Diabetes Hypertension Other Pertinent Diagnosis AMS, hypoglycemia, new onset seizure, hypothermia Current Diet TF Labs/Tests Na: 133 K: 3.5 BUN 7 B Phos: 1.8 M.5 Pertinent Medications Humalog 1 unit Height 5 ft 9 in Weight 91.8 kg [place] Body Weight (kg) 72.72 BMI 29.9 Subjective/Other Information MD consult for TF. Wt (91.8 kg ) obtained from bedside scale. Burn Absent Trauma Absent #1 Nutrition Diagnosis Inadequate oral intake Etiology Vent status As Evidenced by Signs and Symptoms MD consult for TF Is patient on ventilator? Yes Is Patient Ambulatory and/or Out of Bed No REE-([facility]-confined to bed) 1960.440 Calculation Used for Recommendations [facility] Additional Notes Pro: 110-184 g (1.2-2 g/kg) Fluids: 1mL/kcal Nutrition Intervention Nutrition Support: Vital AF 1.2 at 65mL/hr. Water flush 150 q4h. Kcal 1,872 Protein (gm) 117 Carbohydrates (gm) 173 Fat (gm) 84 Fluid (mL) 811 Fiber (gm) 5 Goal #1 TF to meet at least 80% of energy/protein needs Goal #2 TF tolerance Anticipated Discharge Needs: Unable to determine at this time Follow-Up By: 04/15/18 Additional Comments F/U: TF tolerance/TF at goal rate
[2018-04-12] MEDS ORDERED: KPHOS 45 MMOL in NACL 0.9% 500 ML 500 ML IV ONE (08:00)
[2018-04-12] MEDS: LOVENOX SUB-Q SCH (09:14)
[2018-04-12] MEDS: PEPCID IV SCH ×2 (09:14→21:44)
[2018-04-12] MEDS: SODIUM CHLORIDE FLUSH SYRINGE 10 ML IV SCH ×2 (09:15→09:16)
[2018-04-12] MEDS ORDERED: PANCREAZE DR 10,500 UNIT FEEDTUBE PRN (11:19)
[2018-04-12] MEDS ORDERED: SODIUM BICARBONATE FEEDTUBE PRN (11:19)
[2018-04-12] MEDS ORDERED: SIMPLE SYRUP FEEDTUBE PRN ×2 (11:19)
[2018-04-12] MEDS: VANCOMYCIN 1,500 MG in NACL 0.9% 500 ML 500 ML IV SCH (12:05)
[2018-04-12] MEDS: ZITHROMAX 500 MG in NACL 0.9% 250ML 250 ML IV SCH (15:10)
[2018-04-12] MEDS: ROCEPHIN/NS 2 GM/100 ML 2 GM/100 ML BAG IV SCH (15:15)
--- NOTE | 2018-04-12 16:28 | XRay Report ---
FINAL REPORT EXAM: XR CHEST 1V AP HISTORY: follow up respiratory failure TECHNIQUE: Frontal chest radiograph. PRIORS: 04/09/2018 FINDINGS: The endotracheal tube tip projects in the mid thoracic trachea. The enteric tube tip projects in the right upper quadrant, likely in the proximal duodenum. The left upper extremity PICC tip projects in the lower SVC. Unchanged aortic calculi. The cardiomediastinal silhouette is normal. No focal consolidation. No pleural effusion. No pneumothorax. No acute osseous abnormality. IMPRESSION: No acute cardiopulmonary process.
--- NOTE | 2018-04-12 17:21 | Electroencephalogram Report ---
Electroencephalogram EEG Date of exam: 04/10/18 History: Found down with blood glucose in the teens, treated with intravenous dextrose then had a seizure. Description: EEG findings: 21 minute recording position 23 channels, one of which is EKG showing tachycardia. This is a digital EEG using 10/20 international montage. No alpha activity is seen. This slowing especially at F3 and F7 and at times later if for-C4 as for example on the page with elapsed timestamp 00:20:34. No epileptiform activity is seen. Interpretation: EEG reading: Abnormal EEG due to slowing left more than right for which correlation with imaging is advised. This EEG does not exclude epilepsy of partial onset. Up to 4 EEGs over several months may be needed to capture interictal epileptiform activity.
--- NOTE | 2018-04-12 17:53 | Progress Note ---
Assessment and Plan Acute Hypoxemic Respiratory Failure New Onset Seizures (presumed secondary to Hypoglycemia) Acute Encephalopathy (Toxic -Metabolic) Diabetes Type II Rhabdomyolysis Obesity HTN Possible JOE Hyponatremia (mild) Hypomagnesemia leucocytosis - reduced set rate to 10/min - begin daily SBT's as tolerated - de-escalate AB's - discontinued solis catheter - CRP equivocally elevate but lactate WNL - continue to wean supplemental oxygen to keep O2 sats > 90% - continue bronchodilators with pulmonary hygiene per RT - VAP bundle addressed - continue daily SAT's - Daily SBT assessment - titrate sedatives for RASS 0 to -1 - neurology evaluation ongoing - PICC line ordered - GI & VTE prophylaxis - trend CpK level - continue IVF fluids re: Rhabdo - replace electrolytes - continue AED's (Keppra) - continue pertinent home med's - continue enteral nutrition as tolerated - continue accuchecks q6h with glycemic control per SSI for target BG 140-180 mg/dL - will likely need outpatient PSG to evaluate JOE - continue other care per attending / other peoplesoft hcm consultant's CODE STATUS: FULL CODE The high probability of a clinically significant, sudden or life-threatening deterioration of the [cardiac, neurology] system(s) required my full and direct attention, intervention and personal management. The aggregate critical care time was [35] minutes without overlap. Time includes spent on; [x] Data Review and interpretation [x] Patient assessment and monitoring of vital signs [x] Documentation [x] Medication orders and management Subjective Date of service: 04/12/18 Principal diagnosis: Ac Hypoxemic Resp Failure; Seizures; Encephalopathy; DM II; Rhabdomyolysis Interval history: Patient is seen today for: Acute Hypoxemic Respiratory Failure; New Onset Seizures (presumed secondary to Hypoglycemia); Acute Encephalopathy (Toxic - Metabolic); Diabetes Type II; Rhabdomyolysis Seen and examined at bedside; 24hour events reviewed; nursing and respiratory care staff consulted; no adverse overnight events reported to me; resting peacefully in bed; remains on MVS; AMS is persistent; no emesis or overt aspiration; to go for brain MRI shortly; no seizures reported Objective Vital Signs - 12hr 04/12/18 04/12/18 04/12/18 06:00 06:10 06:20 Temperature Pulse Rate 55 L 51 L 50 L Pulse Rate [ Bilateral Throughout] Respiratory 14 12 13 Rate Respiratory Rate [Bilateral Throughout] Blood Pressure 133/59 133/60 133/60 O2 Sat by Pulse 100 100 100 Oximetry 04/12/18 04/12/18 04/12/18 06:30 06:40 06:50 Temperature Pulse Rate 50 L 54 L 49 L Pulse Rate [ Bilateral Throughout] Respiratory 14 15 12 Rate Respiratory Rate [Bilateral Throughout] Blood Pressure 133/60 129/62 133/60 O2 Sat by Pulse 100 99 100 Oximetry 04/12/18 04/12/18 04/12/18 07:00 07:10 07:20 Temperature Pulse Rate 49 L 49 L 50 L Pulse Rate [ Bilateral Throughout] Respiratory 12 12 12 Rate Respiratory Rate [Bilateral Throughout] Blood Pressure 133/60 120/58 129/62 O2 Sat by Pulse 100 100 100 Oximetry 04/12/18 04/12/18 04/12/18 07:30 07:40 07:50 Temperature Pulse Rate 52 L 52 L 52 L Pulse Rate [ Bilateral Throughout] Respiratory 14 14 13 Rate Respiratory Rate [Bilateral Throughout] Blood Pressure 129/62 144/61 144/61 O2 Sat by Pulse 100 100 100 Oximetry 04/12/18 04/12/18 04/12/18 07:54 08:00 08:10 Temperature 98.0 F Pulse Rate 57 L 58 L Pulse Rate [ 52 L Bilateral Throughout] Respiratory 16 15 Rate Respiratory 14 Rate [Bilateral Throughout] Blood Pressure 144/61 132/64 O2 Sat by Pulse 100 100 Oximetry 04/12/18 04/12/18 04/12/18 08:13 08:20 08:30 Temperature Pulse Rate 52 L 55 L Pulse Rate [ 54 L Bilateral Throughout] Respiratory 14 15 Rate Respiratory 16 Rate [Bilateral Throughout] Blood Pressure 132/64 132/64 O2 Sat by Pulse 100 100 Oximetry 04/12/18 04/12/18 04/12/18 08:40 08:51 09:01 Temperature Pulse Rate 59 L 56 L 58 L Pulse Rate [ Bilateral Throughout] Respiratory 16 17 20 Rate Respiratory Rate [Bilateral Throughout] Blood Pressure 144/73 144/73 142/67 O2 Sat by Pulse 99 100 100 Oximetry 04/12/18 04/12/18 04/12/18 09:10 09:21 09:30 Temperature Pulse Rate 51 L 57 L 58 L Pulse Rate [ Bilateral Throughout] Respiratory 14 14 17 Rate Respiratory Rate [Bilateral Throughout] Blood Pressure 144/73 142/67 146/67 O2 Sat by Pulse 99 100 100 Oximetry 04/12/18 04/12/18 04/12/18 09:41 09:51 10:00 Temperature Pulse Rate 64 56 L 67 Pulse Rate [ Bilateral Throughout] Respiratory 18 16 16 Rate Respiratory Rate [Bilateral Throughout] Blood Pressure 146/67 146/67 156/75 O2 Sat by Pulse 100 100 100 Oximetry 04/12/18 04/12/18 04/12/18 10:11 10:21 10:31 Temperature Pulse Rate 79 62 80 Pulse Rate [ Bilateral Throughout] Respiratory 16 18 16 Rate Respiratory Rate [Bilateral Throughout] Blood Pressure 156/75 156/75 142/85 O2 Sat by Pulse 100 100 100 Oximetry 04/12/18 04/12/18 04/12/18 10:41 10:51 11:00 Temperature Pulse Rate 54 L 58 L 55 L Pulse Rate [ Bilateral Throughout] Respiratory 15 14 14 Rate Respiratory Rate [Bilateral Throughout] Blood Pressure 142/85 142/85 139/69 O2 Sat by Pulse 100 100 100 Oximetry 04/12/18 04/12/18 04/12/18 11:11 11:21 11:28 Temperature Pulse Rate 73 78 68 Pulse Rate [ Bilateral Throughout] Respiratory 16 12 Rate Respiratory Rate [Bilateral Throughout] Blood Pressure 139/69 139/69 139/69 O2 Sat by Pulse 100 100 100 Oximetry 04/12/18 04/12/18 04/12/18 11:30 11:41 11:51 Temperature Pulse Rate 76 66 65 Pulse Rate [ Bilateral Throughout] Respiratory 17 16 16 Rate Respiratory Rate [Bilateral Throughout] Blood Pressure 153/83 153/83 153/83 O2 Sat by Pulse 100 100 100 Oximetry 04/12/18 04/12/18 04/12/18 12:00 12:11 12:20 Temperature Pulse Rate 61 57 L 62 Pulse Rate [ Bilateral Throughout] Respiratory 17 14 17 Rate Respiratory Rate [Bilateral Throughout] Blood Pressure 139/68 153/83 139/68 O2 Sat by Pulse 100 99 99 Oximetry 04/12/18 04/12/18 04/12/18 12:30 12:41 12:51 Temperature Pulse Rate 80 60 60 Pulse Rate [ Bilateral Throughout] Respiratory 18 16 18 Rate Respiratory Rate [Bilateral Throughout] Blood Pressure 155/82 139/68 139/68 O2 Sat by Pulse 100 100 99 Oximetry 04/12/18 04/12/18 04/12/18 13:01 13:11 13:21 Temperature Pulse Rate 72 64 77 Pulse Rate [ Bilateral Throughout] Respiratory 12 15 17 Rate Respiratory Rate [Bilateral Throughout] Blood Pressure 146/80 155/82 155/82 O2 Sat by Pulse 100 100 100 Oximetry 04/12/18 04/12/18 04/12/18 13:30 13:41 13:51 Temperature Pulse Rate 75 74 64 Pulse Rate [ Bilateral Throughout] Respiratory 18 16 17 Rate Respiratory Rate [Bilateral Throughout] Blood Pressure 139/73 146/80 146/80 O2 Sat by Pulse 100 100 100 Oximetry 04/12/18 04/12/18 04/12/18 14:00 14:11 14:21 Temperature Pulse Rate 61 65 72 Pulse Rate [ Bilateral Throughout] Respiratory 15 13 17 Rate Respiratory Rate [Bilateral Throughout] Blood Pressure 146/71 139/73 139/73 O2 Sat by Pulse 100 100 100 Oximetry 04/12/18 04/12/18 04/12/18 14:30 14:41 14:51 Temperature Pulse Rate 63 69 71 Pulse Rate [ Bilateral Throughout] Respiratory 18 17 17 Rate Respiratory Rate [Bilateral Throughout] Blood Pressure 154/68 146/71 146/71 O2 Sat by Pulse 100 100 100 Oximetry 04/12/18 04/12/18 04/12/18 15:00 15:02 15:04 Temperature Pulse Rate 73 78 Pulse Rate [ 75 Bilateral Throughout] Respiratory 18 Rate Respiratory 16 Rate [Bilateral Throughout] Blood Pressure 157/75 157/75 O2 Sat by Pulse 100 100 Oximetry 04/12/18 04/12/18 04/12/18 15:11 16:37 16:41 Temperature Pulse Rate 81 81 62 Pulse Rate [ Bilateral Throughout] Respiratory 19 20 20 Rate Respiratory Rate [Bilateral Throughout] Blood Pressure 154/68 154/68 154/68 O2 Sat by Pulse 100 98 100 Oximetry Constitutional: no acute distress, other (Elderly looking AAM, normocephalic and atraumatic with mildly increased respiratory effort on MVS) Eyes: non-icteric ENT: oropharynx moist, other (ETT 23 cm STEPHANIE) Neck: supple, no lymphadenopathy, no JVD, other (large neck circumference) Effort: mildly labored Ascultation: Bilateral: diminished breath sounds, rhonchi Percussion: Bilateral: not dull Cardiovascular: regular rate and rhythm Gastrointestinal: normoactive bowel sounds, soft, non-tender, non-distended, other (protuberant) Integumentary: normal Extremities: no cyanosis, no edema, pulses normal, no ischemia or petechiae Neurologic: non-focal exam (grossly), unable to assess Psychiatric: other (unable to assess) CBC and BMP: 04/12/18 04:00 04/12/18 04:00 ABG, PT/INR, D-dimer: ABG POC ABG pH 7.454 (7.35-7.45) H 04/12/18 04:04 POC ABG pCO2 37.1 (35-45) 04/12/18 04:04 POC ABG pO2 99 (80-105) 04/12/18 04:04 POC ABG HCO3 26.0 04/12/18 04:04 POC ABG Total CO2 27 04/12/18 04:04 POC ABG O2 Sat 98 04/12/18 04:04 Abnormal lab findings: Abnormal Labs 04/09/18 04/09/18 04/09/18 23:16 23:16 23:16 WBC 13.6 H Hct MCHC Plt Count Lymph % (Auto) 9.4 L [place] % (Auto) Lymph # [place] # Seg Neutrophils % 87.3 H Seg Neutrophils # 11.9 H POC ABG pH POC ABG pCO2 POC ABG pO2 Sodium 132 L Potassium Chloride 92.7 L BUN Glucose 143 H POC Glucose Hemoglobin A1c Lactic Acid 2.10 H* Calcium Phosphorus Magnesium Total Bilirubin 2.20 H AST 107 H Total Creatine Kinase CK-MB (CK-2) C-Reactive Protein Total Protein Albumin 04/10/18 04/10/18 04/10/18 00:38 00:55 01:13 WBC Hct MCHC Plt Count Lymph % (Auto) [place] % (Auto) Lymph # [place] # Seg Neutrophils % Seg Neutrophils # POC ABG pH POC ABG pCO2 POC ABG pO2 Sodium Potassium Chloride BUN Glucose POC Glucose 117 H 121 H Hemoglobin A1c Lactic Acid 2.10 H* Calcium Phosphorus Magnesium Total Bilirubin AST Total Creatine Kinase CK-MB (CK-2) C-Reactive Protein Total Protein Albumin 04/10/18 04/10/18 04/10/18 02:10 03:51 04:07 WBC 14.0 H Hct MCHC Plt Count Lymph % (Auto) 7.5 L [place] % (Auto) Lymph # 1.1 L [place] # 1.0 H Seg Neutrophils % 84.9 H Seg Neutrophils # 11.8 H POC ABG pH POC ABG pCO2 POC ABG pO2 Sodium Potassium Chloride BUN Glucose POC Glucose 153 H 158 H Hemoglobin A1c Lactic Acid Calcium Phosphorus Magnesium Total Bilirubin AST Total Creatine Kinase CK-MB (CK-2) C-Reactive Protein Total Protein Albumin 04/10/18 04/10/18 04/10/18 04:07 06:56 09:48 WBC Hct MCHC Plt Count Lymph % (Auto) [place] % (Auto) Lymph # [place] # Seg Neutrophils % Seg Neutrophils # POC ABG pH POC ABG pCO2 POC ABG pO2 Sodium 130 L Potassium Chloride 93.4 L BUN Glucose 180 H POC Glucose 251 H 245 H Hemoglobin A1c Lactic Acid Calcium 7.9 L D Phosphorus Magnesium Total Bilirubin AST Total Creatine Kinase 7857 H CK-MB (CK-2) 34.3 H C-Reactive Protein Total Protein Albumin 04/10/18 04/10/18 04/10/18 10:37 12:44 17:31 WBC Hct MCHC Plt Count Lymph % (Auto) [place] % (Auto) Lymph # [place] # Seg Neutrophils % Seg Neutrophils # POC ABG pH POC ABG pCO2 45.6 H POC ABG pO2 374 H Sodium Potassium Chloride BUN Glucose POC Glucose 348 H Hemoglobin A1c Lactic Acid Calcium Phosphorus Magnesium Total Bilirubin AST Total Creatine Kinase 9880 H CK-MB (CK-2) 30.0 H C-Reactive Protein Total Protein Albumin 04/10/18 04/11/18 04/11/18 23:36 03:52 04:28 WBC 12.2 H Hct MCHC Plt Count 132 L Lymph % (Auto) [place] % (Auto) 10.2 H Lymph # [place] # 1.2 H Seg Neutrophils % 75.1 H Seg Neutrophils # 9.1 H POC ABG pH 7.495 H POC ABG pCO2 32.4 L POC ABG pO2 Sodium Potassium Chloride BUN Glucose POC Glucose 148 H Hemoglobin A1c Lactic Acid Calcium Phosphorus Magnesium Total Bilirubin AST Total Creatine Kinase CK-MB (CK-2) C-Reactive Protein Total Protein Albumin 04/11/18 04/11/18 04/11/18 04:28 04:28 05:22 WBC Hct MCHC Plt Count Lymph % (Auto) [place] % (Auto) Lymph # [place] # Seg Neutrophils % Seg Neutrophils # POC ABG pH POC ABG pCO2 POC ABG pO2 Sodium 133 L Potassium 3.5 L Chloride 95.1 L BUN 7 L Glucose 206 H POC Glucose 178 H Hemoglobin A1c 6.4 H Lactic Acid Calcium 7.7 L Phosphorus 1.80 L Magnesium 1.50 L Total Bilirubin 4.10 H AST 168 H Total Creatine Kinase 9352 H CK-MB (CK-2) C-Reactive Protein Total Protein Albumin 3.4 L 04/11/18 04/11/18 04/11/18 11:28 13:43 17:30 WBC Hct MCHC Plt Count Lymph % (Auto) [place] % (Auto) Lymph # [place] # Seg Neutrophils % Seg Neutrophils # POC ABG pH POC ABG pCO2 POC ABG pO2 Sodium Potassium Chloride BUN Glucose POC Glucose 196 H 142 H Hemoglobin A1c Lactic Acid Calcium Phosphorus Magnesium Total Bilirubin AST Total Creatine Kinase CK-MB (CK-2) C-Reactive Protein 7.20 H Total Protein Albumin 04/11/18 04/11/18 04/12/18 18:59 23:23 04:00 WBC Hct MCHC Plt Count Lymph % (Auto) [place] % (Auto) Lymph # [place] # Seg Neutrophils % Seg Neutrophils # POC ABG pH 7.489 H POC ABG pCO2 34.5 L POC ABG pO2 Sodium Potassium 3.3 L Chloride BUN 6 L Glucose 151 H POC Glucose 129 H Hemoglobin A1c Lactic Acid Calcium 7.3 L Phosphorus 2.00 L Magnesium Total Bilirubin 2.80 H AST 121 H Total Creatine Kinase 5177 H CK-MB (CK-2) C-Reactive Protein Total Protein 5.9 L Albumin 3.1 L 04/12/18 04/12/18 04/12/18 04:00 04:04 05:21 WBC Hct 34.9 L MCHC 35 H Plt Count 128 L Lymph % (Auto) [place] % (Auto) 10.6 H Lymph # [place] # 0.9 H Seg Neutrophils % Seg Neutrophils # POC ABG pH 7.454 H POC ABG pCO2 POC ABG pO2 Sodium Potassium Chloride BUN Glucose POC Glucose 136 H Hemoglobin A1c Lactic Acid Calcium Phosphorus Magnesium Total Bilirubin AST Total Creatine Kinase CK-MB (CK-2) C-Reactive Protein Total Protein Albumin 04/12/18 11:23 WBC Hct MCHC Plt Count Lymph % (Auto) [place] % (Auto) Lymph # [place] # Seg Neutrophils % Seg Neutrophils # POC ABG pH POC ABG pCO2 POC ABG pO2 Sodium Potassium Chloride BUN Glucose POC Glucose 166 H Hemoglobin A1c Lactic Acid Calcium Phosphorus Magnesium Total Bilirubin AST Total Creatine Kinase CK-MB (CK-2) C-Reactive Protein Total Protein Albumin Chest x-ray: image reviewed (no new / focal infiltrate; ETT in good position) Allied health notes reviewed: nursing
--- NOTE | 2018-04-12 19:40 | Magnetic Resonance Report ---
FINAL REPORT PROCEDURE: MRI brain without contrast. TECHNIQUE: Magnetic resonance imaging of the brain was performed without contrast material. HISTORY: Seizures, posturing. COMPARISON: CT head 04/10/2018. FINDINGS: There is some motion artifact on some of the pulse sequences. There is mild cerebral atrophy. There i s normal signal intensity from the pham matter and white matter. There are no mass lesions. There is no intracranial hemorrhage. There are no signs of restricted diffusion. The mastoid air cells and par anasal sinuses are grossly clear. IMPRESSION: Normal study for age.
--- NOTE | 2018-04-12 21:13 | Progress Note ---
Assessment and Plan Impression: 1. Seizures from hypoglycemia 2. Hypoxic ischemic encephalopathy Plan: 1. Wait for improvement. 2. Asked Dr. Moy to check echo I ordered and decide if he could get modafinil to help him wake up, which he said he would want to wait till extubated to try. 3. Ordered Keppra level. 30 minutes critical care time spent. Dr. Cisse, neurology locum next week, can follow-up with him. Subjective Date of service: 04/12/18 Principal diagnosis: Ac Hypoxemic Resp Failure; Seizures; Encephalopathy; DM II; Rhabdomyolysis Interval history: HPI: This 78-year-old male was seen in follow-up for seizure and encephalopathy. EEG shows slowing left frontocentral and sometimes also in the same region on the right but no epileptiform activity. MRI shows negative diffusion and GRE, old right subcaudate lacune, slight periventricular white matter disease but no acute changes. Objective - Exam Narrative Exam: General appearance: well developed but obese (per BMI) late 70s -Prydeinig male in NAD, intubated, head turning side to side at times Neurologic Exam: Mental Status: yawning and turning head side to side but no obedience of commands. Some eye opening on his own. Cranial Nerves: No blink to threat on either side, eyes tending to deviate to the right, Doll's eyes positive but less for left lateral excursion. Pupils react. Corneals react, no grimace to supraorbital pressure on either side. Motor Exam Uppers: increased tone bilaterally in the upper extremities but especially on the left with some spontaneous left arm flexion and internal rotation but not to command and no administrative support specialist to command though perhaps slight reflexive grasp. Motor Exam Lowers: increased tone in right lower extremity but some spontaneous motion of feet bilaterally which is slow. Withdraws right lower extremity much better than left to plantar rub with some adduction right knee. Wiggles toes slowly on both sides, curls feet inwards to plantar stimulation laterally. Some spontaneous knee flexion briefly bilaterally. - Vital Sign Vital Signs - 12hr 04/12/18 04/12/18 04/12/18 09:10 09:21 09:30 Temperature Pulse Rate 51 L 57 L 58 L Pulse Rate [ Bilateral Throughout] Respiratory 14 14 17 Rate Respiratory Rate [Bilateral Throughout] Blood Pressure 144/73 142/67 146/67 O2 Sat by Pulse 99 100 100 Oximetry 04/12/18 04/12/18 04/12/18 09:41 09:51 10:00 Temperature Pulse Rate 64 56 L 67 Pulse Rate [ Bilateral Throughout] Respiratory 18 16 16 Rate Respiratory Rate [Bilateral Throughout] Blood Pressure 146/67 146/67 156/75 O2 Sat by Pulse 100 100 100 Oximetry 04/12/18 04/12/18 04/12/18 10:11 10:21 10:31 Temperature Pulse Rate 79 62 80 Pulse Rate [ Bilateral Throughout] Respiratory 16 18 16 Rate Respiratory Rate [Bilateral Throughout] Blood Pressure 156/75 156/75 142/85 O2 Sat by Pulse 100 100 100 Oximetry 04/12/18 04/12/18 04/12/18 10:41 10:51 11:00 Temperature Pulse Rate 54 L 58 L 55 L Pulse Rate [ Bilateral Throughout] Respiratory 15 14 14 Rate Respiratory Rate [Bilateral Throughout] Blood Pressure 142/85 142/85 139/69 O2 Sat by Pulse 100 100 100 Oximetry 04/12/18 04/12/18 04/12/18 11:11 11:21 11:28 Temperature Pulse Rate 73 78 68 Pulse Rate [ Bilateral Throughout] Respiratory 16 12 Rate Respiratory Rate [Bilateral Throughout] Blood Pressure 139/69 139/69 139/69 O2 Sat by Pulse 100 100 100 Oximetry 04/12/18 04/12/18 04/12/18 11:30 11:41 11:51 Temperature Pulse Rate 76 66 65 Pulse Rate [ Bilateral Throughout] Respiratory 17 16 16 Rate Respiratory Rate [Bilateral Throughout] Blood Pressure 153/83 153/83 153/83 O2 Sat by Pulse 100 100 100 Oximetry 04/12/18 04/12/18 04/12/18 12:00 12:11 12:20 Temperature Pulse Rate 61 57 L 62 Pulse Rate [ Bilateral Throughout] Respiratory 17 14 17 Rate Respiratory Rate [Bilateral Throughout] Blood Pressure 139/68 153/83 139/68 O2 Sat by Pulse 100 99 99 Oximetry 04/12/18 04/12/18 04/12/18 12:30 12:41 12:51 Temperature Pulse Rate 80 60 60 Pulse Rate [ Bilateral Throughout] Respiratory 18 16 18 Rate Respiratory Rate [Bilateral Throughout] Blood Pressure 155/82 139/68 139/68 O2 Sat by Pulse 100 100 99 Oximetry 04/12/18 04/12/18 04/12/18 13:01 13:11 13:21 Temperature Pulse Rate 72 64 77 Pulse Rate [ Bilateral Throughout] Respiratory 12 15 17 Rate Respiratory Rate [Bilateral Throughout] Blood Pressure 146/80 155/82 155/82 O2 Sat by Pulse 100 100 100 Oximetry 04/12/18 04/12/18 04/12/18 13:30 13:41 13:51 Temperature Pulse Rate 75 74 64 Pulse Rate [ Bilateral Throughout] Respiratory 18 16 17 Rate Respiratory Rate [Bilateral Throughout] Blood Pressure 139/73 146/80 146/80 O2 Sat by Pulse 100 100 100 Oximetry 04/12/18 04/12/18 04/12/18 14:00 14:11 14:21 Temperature Pulse Rate 61 65 72 Pulse Rate [ Bilateral Throughout] Respiratory 15 13 17 Rate Respiratory Rate [Bilateral Throughout] Blood Pressure 146/71 139/73 139/73 O2 Sat by Pulse 100 100 100 Oximetry 04/12/18 04/12/18 04/12/18 14:30 14:41 14:51 Temperature Pulse Rate 63 69 71 Pulse Rate [ Bilateral Throughout] Respiratory 18 17 17 Rate Respiratory Rate [Bilateral Throughout] Blood Pressure 154/68 146/71 146/71 O2 Sat by Pulse 100 100 100 Oximetry 04/12/18 04/12/18 04/12/18 15:00 15:02 15:04 Temperature Pulse Rate 73 78 Pulse Rate [ 75 Bilateral Throughout] Respiratory 18 Rate Respiratory 16 Rate [Bilateral Throughout] Blood Pressure 157/75 157/75 O2 Sat by Pulse 100 100 Oximetry 04/12/18 04/12/18 04/12/18 15:11 16:37 16:41 Temperature Pulse Rate 81 81 62 Pulse Rate [ Bilateral Throughout] Respiratory 19 20 20 Rate Respiratory Rate [Bilateral Throughout] Blood Pressure 154/68 154/68 154/68 O2 Sat by Pulse 100 98 100 Oximetry 04/12/18 04/12/18 04/12/18 16:51 17:01 17:10 Temperature Pulse Rate 79 81 81 Pulse Rate [ Bilateral Throughout] Respiratory 20 15 18 Rate Respiratory Rate [Bilateral Throughout] Blood Pressure 154/68 157/75 157/75 O2 Sat by Pulse 100 100 100 Oximetry 04/12/18 04/12/18 04/12/18 17:21 17:30 17:41 Temperature Pulse Rate 66 78 76 Pulse Rate [ Bilateral Throughout] Respiratory 20 14 14 Rate Respiratory Rate [Bilateral Throughout] Blood Pressure 157/75 157/75 157/75 O2 Sat by Pulse 100 100 100 Oximetry 04/12/18 04/12/18 04/12/18 17:51 18:00 18:07 Temperature Pulse Rate 80 89 66 Pulse Rate [ Bilateral Throughout] Respiratory 19 18 Rate Respiratory Rate [Bilateral Throughout] Blood Pressure 156/79 166/76 166/76 O2 Sat by Pulse 100 100 100 Oximetry 04/12/18 04/12/18 04/12/18 18:11 18:21 18:30 Temperature Pulse Rate 73 100 H 70 Pulse Rate [ Bilateral Throughout] Respiratory 21 15 18 Rate Respiratory Rate [Bilateral Throughout] Blood Pressure 166/76 166/76 147/65 O2 Sat by Pulse 100 100 100 Oximetry 04/12/18 04/12/18 04/12/18 18:41 18:51 19:01 Temperature Pulse Rate 85 93 H 84 Pulse Rate [ Bilateral Throughout] Respiratory 21 22 20 Rate Respiratory Rate [Bilateral Throughout] Blood Pressure 147/65 166/76 145/74 O2 Sat by Pulse 100 100 100 Oximetry 04/12/18 04/12/18 04/12/18 19:11 19:21 19:31 Temperature Pulse Rate 83 98 H 89 Pulse Rate [ Bilateral Throughout] Respiratory 20 21 23 Rate Respiratory Rate [Bilateral Throughout] Blood Pressure 145/74 145/74 145/74 O2 Sat by Pulse 98 100 100 Oximetry 04/12/18 04/12/18 04/12/18 19:39 19:41 19:51 Temperature 99.9 F H Pulse Rate 82 79 Pulse Rate [ Bilateral Throughout] Respiratory 20 20 Rate Respiratory Rate [Bilateral Throughout] Blood Pressure 143/67 143/67 O2 Sat by Pulse 100 100 Oximetry 04/12/18 04/12/18 04/12/18 20:00 20:11 20:12 Temperature Pulse Rate 80 73 Pulse Rate [ 78 82 Bilateral Throughout] Respiratory 18 20 Rate Respiratory 19 19 Rate [Bilateral Throughout] Blood Pressure 138/70 148/73 O2 Sat by Pulse 100 100 Oximetry - Laboratory Findings CBC and BMP: 04/12/18 04:00 04/12/18 04:00 Abnormal Lab Findings: Abnormal Labs 04/09/18 04/09/18 04/09/18 23:16 23:16 23:16 WBC 13.6 H Hct MCHC Plt Count Lymph % (Auto) 9.4 L [place] % (Auto) Lymph # [place] # Seg Neutrophils % 87.3 H Seg Neutrophils # 11.9 H POC ABG pH POC ABG pCO2 POC ABG pO2 Sodium 132 L Potassium Chloride 92.7 L BUN Glucose 143 H POC Glucose Hemoglobin A1c Lactic Acid 2.10 H* Calcium Phosphorus Magnesium Total Bilirubin 2.20 H AST 107 H Total Creatine Kinase CK-MB (CK-2) C-Reactive Protein Total Protein Albumin 04/10/18 04/10/18 04/10/18 00:38 00:55 01:13 WBC Hct MCHC Plt Count Lymph % (Auto) [place] % (Auto) Lymph # [place] # Seg Neutrophils % Seg Neutrophils # POC ABG pH POC ABG pCO2 POC ABG pO2 Sodium Potassium Chloride BUN Glucose POC Glucose 117 H 121 H Hemoglobin A1c Lactic Acid 2.10 H* Calcium Phosphorus Magnesium Total Bilirubin AST Total Creatine Kinase CK-MB (CK-2) C-Reactive Protein Total Protein Albumin 04/10/18 04/10/18 04/10/18 02:10 03:51 04:07 WBC 14.0 H Hct MCHC Plt Count Lymph % (Auto) 7.5 L [place] % (Auto) Lymph # 1.1 L [place] # 1.0 H Seg Neutrophils % 84.9 H Seg Neutrophils # 11.8 H POC ABG pH POC ABG pCO2 POC ABG pO2 Sodium Potassium Chloride BUN Glucose POC Glucose 153 H 158 H Hemoglobin A1c Lactic Acid Calcium Phosphorus Magnesium Total Bilirubin AST Total Creatine Kinase CK-MB (CK-2) C-Reactive Protein Total Protein Albumin 04/10/18 04/10/18 04/10/18 04:07 06:56 09:48 WBC Hct MCHC Plt Count Lymph % (Auto) [place] % (Auto) Lymph # [place] # Seg Neutrophils % Seg Neutrophils # POC ABG pH POC ABG pCO2 POC ABG pO2 Sodium 130 L Potassium Chloride 93.4 L BUN Glucose 180 H POC Glucose 251 H 245 H Hemoglobin A1c Lactic Acid Calcium 7.9 L D Phosphorus Magnesium Total Bilirubin AST Total Creatine Kinase 7857 H CK-MB (CK-2) 34.3 H C-Reactive Protein Total Protein Albumin 04/10/18 04/10/18 04/10/18 10:37 12:44 17:31 WBC Hct MCHC Plt Count Lymph % (Auto) [place] % (Auto) Lymph # [place] # Seg Neutrophils % Seg Neutrophils # POC ABG pH POC ABG pCO2 45.6 H POC ABG pO2 374 H Sodium Potassium Chloride BUN Glucose POC Glucose 348 H Hemoglobin A1c Lactic Acid Calcium Phosphorus Magnesium Total Bilirubin AST Total Creatine Kinase 9880 H CK-MB (CK-2) 30.0 H C-Reactive Protein Total Protein Albumin 04/10/18 04/11/18 04/11/18 23:36 03:52 04:28 WBC 12.2 H Hct MCHC Plt Count 132 L Lymph % (Auto) [place] % (Auto) 10.2 H Lymph # [place] # 1.2 H Seg Neutrophils % 75.1 H Seg Neutrophils # 9.1 H POC ABG pH 7.495 H POC ABG pCO2 32.4 L POC ABG pO2 Sodium Potassium Chloride BUN Glucose POC Glucose 148 H Hemoglobin A1c Lactic Acid Calcium Phosphorus Magnesium Total Bilirubin AST Total Creatine Kinase CK-MB (CK-2) C-Reactive Protein Total Protein Albumin 04/11/18 04/11/18 04/11/18 04:28 04:28 05:22 WBC Hct MCHC Plt Count Lymph % (Auto) [place] % (Auto) Lymph # [place] # Seg Neutrophils % Seg Neutrophils # POC ABG pH POC ABG pCO2 POC ABG pO2 Sodium 133 L Potassium 3.5 L Chloride 95.1 L BUN 7 L Glucose 206 H POC Glucose 178 H Hemoglobin A1c 6.4 H Lactic Acid Calcium 7.7 L Phosphorus 1.80 L Magnesium 1.50 L Total Bilirubin 4.10 H AST 168 H Total Creatine Kinase 9352 H CK-MB (CK-2) C-Reactive Protein Total Protein Albumin 3.4 L 04/11/18 04/11/18 04/11/18 11:28 13:43 17:30 WBC Hct MCHC Plt Count Lymph % (Auto) [place] % (Auto) Lymph # [place] # Seg Neutrophils % Seg Neutrophils # POC ABG pH POC ABG pCO2 POC ABG pO2 Sodium Potassium Chloride BUN Glucose POC Glucose 196 H 142 H Hemoglobin A1c Lactic Acid Calcium Phosphorus Magnesium Total Bilirubin AST Total Creatine Kinase CK-MB (CK-2) C-Reactive Protein 7.20 H Total Protein Albumin 04/11/18 04/11/18 04/12/18 18:59 23:23 04:00 WBC Hct MCHC Plt Count Lymph % (Auto) [place] % (Auto) Lymph # [place] # Seg Neutrophils % Seg Neutrophils # POC ABG pH 7.489 H POC ABG pCO2 34.5 L POC ABG pO2 Sodium Potassium 3.3 L Chloride BUN 6 L Glucose 151 H POC Glucose 129 H Hemoglobin A1c Lactic Acid Calcium 7.3 L Phosphorus 2.00 L Magnesium Total Bilirubin 2.80 H AST 121 H Total Creatine Kinase 5177 H CK-MB (CK-2) C-Reactive Protein Total Protein 5.9 L Albumin 3.1 L 04/12/18 04/12/18 04/12/18 04:00 04:04 05:21 WBC Hct 34.9 L MCHC 35 H Plt Count 128 L Lymph % (Auto) [place] % (Auto) 10.6 H Lymph # [place] # 0.9 H Seg Neutrophils % Seg Neutrophils # POC ABG pH 7.454 H POC ABG pCO2 POC ABG pO2 Sodium Potassium Chloride BUN Glucose POC Glucose 136 H Hemoglobin A1c Lactic Acid Calcium Phosphorus Magnesium Total Bilirubin AST Total Creatine Kinase CK-MB (CK-2) C-Reactive Protein Total Protein Albumin 04/12/18 11:23 WBC Hct MCHC Plt Count Lymph % (Auto) [place] % (Auto) Lymph # [place] # Seg Neutrophils % Seg Neutrophils # POC ABG pH POC ABG pCO2 POC ABG pO2 Sodium Potassium Chloride BUN Glucose POC Glucose 166 H Hemoglobin A1c Lactic Acid Calcium Phosphorus Magnesium Total Bilirubin AST Total Creatine Kinase CK-MB (CK-2) C-Reactive Protein Total Protein Albumin
[2018-04-13] MEDS: HumaLOG SUB-Q SCH ×4 (00:35→18:55)
[2018-04-13] MEDS: KEPPRA 750 MG in NACL 0.9% 100 ML IV SCH ×4 (00:38→17:23)
[2018-04-13] MEDS: fentaNYL DRIP Premix 2,000 MCG/100 ML BAG IV SCH (00:39)
--- NOTE | 2018-04-13 07:36 | XRay Report ---
FINAL REPORT PROCEDURE: XR CHEST 1V AP TECHNIQUE: Chest radiograph anteroposterior view. CPT 06665 HISTORY: follow up respiratory failure COMPARISON: 04/12/2018 FINDINGS: Heart: Normal. Mediastinum/Vessels: Normal. Lungs/Pleural space: The lungs are expanded. There are faint infiltrates at the right lung base. Ther e are no effusions or pneumothoraces. Bony thorax: No acute osseous abnormality. Life support devices: The endotracheal tube is in the distal trachea approximately 3 centimeters abov e the yanely. There is an NG tube in the stomach. There is a left-sided PICC line. The tip is in the superior vena cava.. IMPRESSION: The heart size is normal.. The lungs are expanded. There are faint infiltrates at the right lung base. There are no effusions or pneumothoraces. The endotracheal tube is in the distal trachea approximately 3 centimeters above the yanely. There is an NG tube in the stomach. There is a left-sided PICC line. The tip is in the superior vena cava..
[2018-04-13] MEDS: DUONEB *Not for PRN Use IH SCH ×3 (08:00→20:25)
[2018-04-13] MEDS: ROCEPHIN/NS 2 GM/100 ML 2 GM/100 ML BAG IV SCH (09:00)
[2018-04-13] MEDS: PEPCID IV SCH ×2 (09:00→22:55)
[2018-04-13] MEDS: SODIUM CHLORIDE FLUSH SYRINGE 10 ML IV SCH (09:00)
[2018-04-13] MEDS: LOVENOX SUB-Q SCH (09:00)
[2018-04-13] MEDS: ZITHROMAX 500 MG in NACL 0.9% 250ML 250 ML IV SCH (09:01)
--- NOTE | 2018-04-13 13:17 | Progress Note ---
Assessment and Plan Assessment and plan: 78-year-old male patient with significant history of hypertension diabetes coronary artery disease was admitted through emergency room with history of unresponsivenessat home for unknown. At that time he had hypoglycemia and seizure activity,Patient was unable to protect his airway and was intubated on ventilatory support admitted to ICU, Hospital course -Neuro: Patient had CT scan 2 days should not show acute abnormality. 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 The family wants to continue aggressive care. If the patient is not able, he will most likely need to be trached and peg FEN; his electrolytes namely potassium and phosphate were repleted ID; the patient received empiric antibiotics for pneumonia Musculoskeletal; Traumatic Rhabdomyolysis; status post IV fluids and improved His medications were optimized for his chronic conditions Diagnosis Acute metabolic encephalopathy Hypoxic ischemic encephalopathy Pneumonia Sepsis Acute respiratory failure on mechanical ventilator greater than 96 hours Seizures due to hypoglycemia Hypoglycemia Hypokalemia Hyponatremia Type 2 diabetes Obesity Cr Care 33 min History Interval history: The patient remains intubated and sedated No fevers, seizures, or vomiting Hospitalist Physical - Physical exam Narrative exam: General.: Intubated and sedated HEENT: Moist mucous membranes, extraocular muscles intact, no lymphadenopathy Neck: supple Cardiac: S1-S2 heard Lungs: clear to auscultation bilaterally Abdomen: soft , nontender, nondistended, bowel sounds positive Extremities: no edema clubbing or cyanosis Skin: no rash or lesions Neurologic: Intubated and sedated - Constitutional Vitals: Temp Pulse Resp BP Pulse Ox 99.4 F 65 13 131/58 100 04/13/18 12:00 04/13/18 11:23 04/13/18 11:23 04/13/18 11:23 04/13/18 11:23 General appearance: Present: no acute distress, obese (Morbidly obese), other (intubated on vent) Results - Labs CBC & Chem 7: 04/12/18 04:00 04/12/18 04:00 Labs: Laboratory Last Values WBC 8.1 K/mm3 (4.5-11.0) 04/12/18 04:00 RBC 3.98 M/mm3 (3.65-5.03) 04/12/18 04:00 Hgb 12.0 gm/dl (11.8-15.2) 04/12/18 04:00 Hct 34.9 % (35.5-45.6) L 04/12/18 04:00 MCV 88 fl (84-94) 04/12/18 04:00 MCH 30 pg (28-32) 04/12/18 04:00 MCHC 35 % (32-34) H 04/12/18 04:00 RDW 14.4 % (13.2-15.2) 04/12/18 04:00 Plt Count 128 K/mm3 (140-440) L 04/12/18 04:00 Lymph % (Auto) 21.7 % (13.4-35.0) 04/12/18 04:00 [place] % (Auto) 10.6 % (0.0-7.3) H 04/12/18 04:00 Eos % (Auto) 1.2 % (0.0-4.3) 04/12/18 04:00 Baso % (Auto) 0.7 % (0.0-1.8) 04/12/18 04:00 Lymph # 1.8 K/mm3 (1.2-5.4) 04/12/18 04:00 [place] # 0.9 K/mm3 (0.0-0.8) H 04/12/18 04:00 Eos # 0.1 K/mm3 (0.0-0.4) 04/12/18 04:00 Baso # 0.1 K/mm3 (0.0-0.1) 04/12/18 04:00 Seg Neutrophils % 65.8 % (40.0-70.0) 04/12/18 04:00 Seg Neutrophils # 5.3 K/mm3 (1.8-7.7) 04/12/18 04:00 APTT 24.8 Sec. (24.2-36.6) 04/09/18 23:16 POC ABG pH 7.443 (7.35-7.45) 04/13/18 04:57 POC ABG pCO2 34.7 (35-45) L 04/13/18 04:57 POC ABG pO2 125 (80-105) H 04/13/18 04:57 POC ABG HCO3 23.7 04/13/18 04:57 POC ABG Total CO2 25 04/13/18 04:57 POC ABG O2 Sat 99 04/13/18 04:57 POC ABG Base Excess 0 04/13/18 04:57 FiO2 30 % 04/13/18 04:57 Sodium 140 mmol/L (137-145) D 04/12/18 04:00 Potassium 3.3 mmol/L (3.6-5.0) L 04/12/18 04:00 Chloride 103.7 mmol/L (98-107) 04/12/18 04:00 Carbon Dioxide 26 mmol/L (22-30) 04/12/18 04:00 Anion Gap 14 mmol/L 04/12/18 04:00 BUN 6 mg/dL (9-20) L 04/12/18 04:00 Creatinine 0.8 mg/dL (0.8-1.5) 04/12/18 04:00 Estimated GFR > 60 ml/min 04/12/18 04:00 BUN/Creatinine Ratio 8 % 04/12/18 04:00 Glucose 151 mg/dL (75-100) H 04/12/18 04:00 POC Glucose 170 (70-105) H 04/13/18 12:16 Hemoglobin A1c 6.4 % (4-6) H 04/11/18 04:28 Lactic Acid 1.70 mmol/L (0.7-2.0) 04/10/18 02:47 Calcium 7.3 mg/dL (8.4-10.2) L 04/12/18 04:00 Phosphorus 2.00 mg/dL (2.5-4.5) L 04/12/18 04:00 Magnesium 2.30 mg/dL (1.7-2.3) 04/12/18 04:00 Total Bilirubin 2.80 mg/dL (0.1-1.2) H 04/12/18 04:00 AST 121 units/L (5-40) H 04/12/18 04:00 ALT 48 units/L (7-56) 04/12/18 04:00 Alkaline Phosphatase 51 units/L (35-129) 04/12/18 04:00 Total Creatine Kinase 3456 units/L (55-170) H 04/13/18 05:02 CK-MB (CK-2) 30.0 ng/mL (0.0-4.0) H 04/10/18 10:37 CK-MB (CK-2) Rel Index 0.3 (0-4) 04/10/18 10:37 Troponin T < 0.010 ng/mL (0.00-0.029) 04/10/18 10:37 C-Reactive Protein 7.20 mg/dL (0.00-1.30) H 04/11/18 13:43 Total Protein 5.9 g/dL (6.3-8.2) L 04/12/18 04:00 Albumin 3.1 g/dL (3.9-5) L 04/12/18 04:00 Albumin/Globulin Ratio 1.1 % 04/12/18 04:00 Urine Color Yellow (Yellow) 04/10/18 01:07 Urine Turbidity Clear (Clear) 04/10/18 01:07 Urine pH 5.0 (5.0-7.0) 04/10/18 01:07 Ur Specific [place] 1.019 (1.003-1.030) 04/10/18 01:07 Urine Protein 100 mg/dl mg/dL (Negative) 04/10/18 01:07 Urine Glucose (UA) Neg mg/dL (Negative) 04/10/18 01:07 Urine Ketones Neg mg/dL (Negative) 04/10/18 01:07 Urine Blood Lg (Negative) 04/10/18 01:07 Urine Nitrite Neg (Negative) 04/10/18 01:07 Urine Bilirubin Neg (Negative) 04/10/18 01:07 Urine Urobilinogen < 2.0 mg/dL (<2.0) 04/10/18 01:07 Ur Leukocyte Esterase Neg (Negative) 04/10/18 01:07 Urine WBC (Auto) 1.0 /HPF (0.0-6.0) 04/10/18 01:07 Urine RBC (Auto) 9.0 /HPF (0.0-6.0) 04/10/18 01:07 U Epithel Cells (Auto) < 1.0 /HPF (0-13.0) 04/10/18 01:07 Urine Mucus Few /HPF 04/10/18 01:07 Influenza A (Rapid) Negative (Negative) 04/11/18 15:08 Influenza B (Rapid) Negative (Negative) 04/11/18 15:08 Nutrition/Malnutrition Assess - Dietary Evaluation Nutrition/Malnutrition Findings: Nutrition Notes Start: 04/11/18 10:20 Freq: Status: Active Protocol: Document 04/11/18 10:20 CP (Rec: 04/11/18 11:17 CP [id number]) Co-Sign 04/11/18 10:20 LP Nutrition Notes Need for Assessment generated from: MD Order Initial or Follow up Assessment Current Diagnosis Coronary Artery Disease Diabetes Hypertension Other Pertinent Diagnosis AMS, hypoglycemia, new onset seizure, hypothermia Current Diet TF Labs/Tests Na: 133 K: 3.5 BUN 7 B Phos: 1.8 M.5 Pertinent Medications Humalog 1 unit Height 5 ft 9 in Weight 91.8 kg [place] Body Weight (kg) 72.72 BMI 29.9 Subjective/Other Information MD consult for TF. Wt (91.8 kg ) obtained from bedside scale. Burn Absent Trauma Absent #1 Nutrition Diagnosis Inadequate oral intake Etiology Vent status As Evidenced by Signs and Symptoms MD consult for TF Is patient on ventilator? Yes Is Patient Ambulatory and/or Out of Bed No REE-([facility] [place]-confined to bed) [phone] Calculation Used for Recommendations [facility] Additional Notes Pro: 110-184 g (1.2-2 g/kg) Fluids: 1mL/kcal Nutrition Intervention Nutrition Support: Vital AF 1.2 at 65mL/hr. Water flush 150 q4h. Kcal 1,872 Protein (gm) 117 Carbohydrates (gm) 173 Fat (gm) 84 Fluid (mL) 811 Fiber (gm) 5 Goal #1 TF to meet at least 80% of energy/protein needs Goal #2 TF tolerance Anticipated Discharge Needs: Unable to determine at this time Follow-Up By: 04/15/18 Additional Comments F/U: TF tolerance/TF at goal rate
--- NOTE | 2018-04-13 17:27 | Progress Note ---
Assessment and Plan Acute Hypoxemic Respiratory Failure New Onset Seizures (presumed secondary to Hypoglycemia) Acute Encephalopathy (Toxic -Metabolic) Diabetes Type II Rhabdomyolysis Obesity HTN Possible JOE Hyponatremia (mild) Hypomagnesemia leucocytosis (AMS is rate limiting step to safe extubation at this point) - keep set rate at 10/min - begin daily SBT's as tolerated - de-escalate AB's to Rocephin monotherapy X 5-7 days while following cultures and clinically - discontinued solis catheter - CRP equivocally elevated but lactate WNL - continue to wean supplemental oxygen to keep O2 sats > 90% - continue bronchodilators with pulmonary hygiene per RT - VAP bundle addressed - continue daily SAT's - titrate sedatives for RASS 0 to -1 (on hold re: AMS) - neurology evaluation ongoing - PICC line placed - GI & VTE prophylaxis - trend CpK level - continue IVF fluids re: Rhabdo - replace electrolytes - continue AED's (Keppra) - continue pertinent home med's - continue enteral nutrition as tolerated - continue accuchecks q6h with glycemic control per SSI for target BG 140-180 mg/dL - will likely need outpatient PSG to evaluate JOE - continue other care per attending / other animal nutrition consultant's CODE STATUS: FULL CODE The high probability of a clinically significant, sudden or life-threatening deterioration of the [cardiac, neurology] system(s) required my full and direct attention, intervention and personal management. The aggregate critical care time was [32] minutes without overlap. Time includes spent on; [x] Data Review and interpretation [x] Patient assessment and monitoring of vital signs [x] Documentation [x] Medication orders and management Subjective Date of service: 04/13/18 Principal diagnosis: Ac Hypoxemic Resp Failure; Seizures; Encephalopathy; DM II; Rhabdomyolysis Interval history: Patient is seen today for: Acute Hypoxemic Respiratory Failure; New Onset S eizures (presumed secondary to Hypoglycemia); Acute Encephalopathy (Toxic - Metabolic); Diabetes Type II; Rhabdomyolysis Seen and examined at bedside; 24hour events reviewed; nursing and respiratory care staff consulted; no adverse overnight events reported to me; resting pe acefully in bed; remains lethargic; no emesis or overt aspiration; remains on MVS; no seizures; tolerating tube feeds; MRI Brain WNL Objective Vital Signs - 12hr 04/13/18 04/13/18 04/13/18 06:00 07:00 07:56 Temperature Pulse Rate 69 68 63 Pulse Rate [ Bilateral Throughout] Pulse Rate [ From Monitor] Respiratory 15 14 14 Rate Respiratory Rate [Bilateral Throughout] Blood Pressure 116/53 119/53 138/58 O2 Sat by Pulse 100 100 100 Oximetry 04/13/18 04/13/18 04/13/18 08:00 08:18 09:00 Temperature 97.4 F L Pulse Rate 65 65 Pulse Rate [ 64 62 Bilateral Throughout] Pulse Rate [ 89 From Monitor] Respiratory 14 11 L Rate Respiratory 13 12 Rate [Bilateral Throughout] Blood Pressure 138/58 131/57 O2 Sat by Pulse 100 100 Oximetry 04/13/18 04/13/18 04/13/18 10:00 11:00 11:23 Temperature Pulse Rate 61 62 65 Pulse Rate [ Bilateral Throughout] Pulse Rate [ From Monitor] Respiratory 11 L 13 13 Rate Respiratory Rate [Bilateral Throughout] Blood Pressure 135/57 131/58 131/58 O2 Sat by Pulse 100 100 100 Oximetry 04/13/18 04/13/18 04/13/18 12:00 13:00 14:00 Temperature 99.4 F Pulse Rate 64 65 63 Pulse Rate [ Bilateral Throughout] Pulse Rate [ 68 From Monitor] Respiratory 13 12 13 Rate Respiratory Rate [Bilateral Throughout] Blood Pressure 131/55 127/57 133/57 O2 Sat by Pulse 100 100 100 Oximetry 04/13/18 04/13/18 04/13/18 14:05 14:25 15:00 Temperature Pulse Rate 64 Pulse Rate [ 65 96 H Bilateral Throughout] Pulse Rate [ From Monitor] Respiratory 11 L Rate Respiratory 15 17 Rate [Bilateral Throughout] Blood Pressure 132/53 O2 Sat by Pulse 100 Oximetry 04/13/18 04/13/18 16:00 16:19 Temperature 98.4 F Pulse Rate 71 100 H Pulse Rate [ Bilateral Throughout] Pulse Rate [ 66 From Monitor] Respiratory 15 17 Rate Respiratory Rate [Bilateral Throughout] Blood Pressure 144/67 144/67 O2 Sat by Pulse 100 100 Oximetry Constitutional: no acute distress, other (Elderly looking AAM, normocephalic and atraumatic with mildly increased respiratory effort on MVS) Eyes: non-icteric ENT: oropharynx moist, other (ETT 23 cm STEPHANIE) Neck: supple, no lymphadenopathy, no JVD, other (large neck circumference) Effort: mildly labored Ascultation: Bilateral: diminished breath sounds, rhonchi Percussion: Bilateral: not dull Cardiovascular: regular rate and rhythm Gastrointestinal: normoactive bowel sounds, soft, non-tender, non-distended, other (protuberant) Integumentary: normal Extremities: no cyanosis, no edema, pulses normal, no ischemia or petechiae Neurologic: non-focal exam (grossly), unable to assess Psychiatric: other (unable to assess) CBC and BMP: 04/12/18 04:00 04/12/18 04:00 ABG, PT/INR, D-dimer: ABG POC ABG pH 7.443 (7.35-7.45) 04/13/18 04:57 POC ABG pCO2 34.7 (35-45) L 04/13/18 04:57 POC ABG pO2 125 (80-105) H 04/13/18 04:57 POC ABG HCO3 23.7 04/13/18 04:57 POC ABG Total CO2 25 04/13/18 04:57 POC ABG O2 Sat 99 04/13/18 04:57 Abnormal lab findings: Abnormal Labs 04/09/18 04/09/18 04/09/18 23:16 23:16 23:16 WBC 13.6 H Hct MCHC Plt Count Lymph % (Auto) 9.4 L [place] % (Auto) Lymph # [place] # Seg Neutrophils % 87.3 H Seg Neutrophils # 11.9 H POC ABG pH POC ABG pCO2 POC ABG pO2 Sodium 132 L Potassium Chloride 92.7 L BUN Glucose 143 H POC Glucose Hemoglobin A1c Lactic Acid 2.10 H* Calcium Phosphorus Magnesium Total Bilirubin 2.20 H AST 107 H Total Creatine Kinase CK-MB (CK-2) C-Reactive Protein Total Protein Albumin 04/10/18 04/10/18 04/10/18 00:38 00:55 01:13 WBC Hct MCHC Plt Count Lymph % (Auto) [place] % (Auto) Lymph # [place] # Seg Neutrophils % Seg Neutrophils # POC ABG pH POC ABG pCO2 POC ABG pO2 Sodium Potassium Chloride BUN Glucose POC Glucose 117 H 121 H Hemoglobin A1c Lactic Acid 2.10 H* Calcium Phosphorus Magnesium Total Bilirubin AST Total Creatine Kinase CK-MB (CK-2) C-Reactive Protein Total Protein Albumin 04/10/18 04/10/18 04/10/18 02:10 03:51 04:07 WBC 14.0 H Hct MCHC Plt Count Lymph % (Auto) 7.5 L [place] % (Auto) Lymph # 1.1 L [place] # 1.0 H Seg Neutrophils % 84.9 H Seg Neutrophils # 11.8 H POC ABG pH POC ABG pCO2 POC ABG pO2 Sodium Potassium Chloride BUN Glucose POC Glucose 153 H 158 H Hemoglobin A1c Lactic Acid Calcium Phosphorus Magnesium Total Bilirubin AST Total Creatine Kinase CK-MB (CK-2) C-Reactive Protein Total Protein Albumin 04/10/18 04/10/18 04/10/18 04:07 06:56 09:48 WBC Hct MCHC Plt Count Lymph % (Auto) [place] % (Auto) Lymph # [place] # Seg Neutrophils % Seg Neutrophils # POC ABG pH POC ABG pCO2 POC ABG pO2 Sodium 130 L Potassium Chloride 93.4 L BUN Glucose 180 H POC Glucose 251 H 245 H Hemoglobin A1c Lactic Acid Calcium 7.9 L D Phosphorus Magnesium Total Bilirubin AST Total Creatine Kinase 7857 H CK-MB (CK-2) 34.3 H C-Reactive Protein Total Protein Albumin 04/10/18 04/10/18 04/10/18 10:37 12:44 17:31 WBC Hct MCHC Plt Count Lymph % (Auto) [place] % (Auto) Lymph # [place] # Seg Neutrophils % Seg Neutrophils # POC ABG pH POC ABG pCO2 45.6 H POC ABG pO2 374 H Sodium Potassium Chloride BUN Glucose POC Glucose 348 H Hemoglobin A1c Lactic Acid Calcium Phosphorus Magnesium Total Bilirubin AST Total Creatine Kinase 9880 H CK-MB (CK-2) 30.0 H C-Reactive Protein Total Protein Albumin 04/10/18 04/11/18 04/11/18 23:36 03:52 04:28 WBC 12.2 H Hct MCHC Plt Count 132 L Lymph % (Auto) [place] % (Auto) 10.2 H Lymph # [place] # 1.2 H Seg Neutrophils % 75.1 H Seg Neutrophils # 9.1 H POC ABG pH 7.495 H POC ABG pCO2 32.4 L POC ABG pO2 Sodium Potassium Chloride BUN Glucose POC Glucose 148 H Hemoglobin A1c Lactic Acid Calcium Phosphorus Magnesium Total Bilirubin AST Total Creatine Kinase CK-MB (CK-2) C-Reactive Protein Total Protein Albumin 04/11/18 04/11/18 04/11/18 04:28 04:28 05:22 WBC Hct MCHC Plt Count Lymph % (Auto) [place] % (Auto) Lymph # [place] # Seg Neutrophils % Seg Neutrophils # POC ABG pH POC ABG pCO2 POC ABG pO2 Sodium 133 L Potassium 3.5 L Chloride 95.1 L BUN 7 L Glucose 206 H POC Glucose 178 H Hemoglobin A1c 6.4 H Lactic Acid Calcium 7.7 L Phosphorus 1.80 L Magnesium 1.50 L Total Bilirubin 4.10 H AST 168 H Total Creatine Kinase 9352 H CK-MB (CK-2) C-Reactive Protein Total Protein Albumin 3.4 L 04/11/18 04/11/18 04/11/18 11:28 13:43 17:30 WBC Hct MCHC Plt Count Lymph % (Auto) [place] % (Auto) Lymph # [place] # Seg Neutrophils % Seg Neutrophils # POC ABG pH POC ABG pCO2 POC ABG pO2 Sodium Potassium Chloride BUN Glucose POC Glucose 196 H 142 H Hemoglobin A1c Lactic Acid Calcium Phosphorus Magnesium Total Bilirubin AST Total Creatine Kinase CK-MB (CK-2) C-Reactive Protein 7.20 H Total Protein Albumin 04/11/18 04/11/18 04/12/18 18:59 23:23 04:00 WBC Hct MCHC Plt Count Lymph % (Auto) [place] % (Auto) Lymph # [place] # Seg Neutrophils % Seg Neutrophils # POC ABG pH 7.489 H POC ABG pCO2 34.5 L POC ABG pO2 Sodium Potassium 3.3 L Chloride BUN 6 L Glucose 151 H POC Glucose 129 H Hemoglobin A1c Lactic Acid Calcium 7.3 L Phosphorus 2.00 L Magnesium Total Bilirubin 2.80 H AST 121 H Total Creatine Kinase 5177 H CK-MB (CK-2) C-Reactive Protein Total Protein 5.9 L Albumin 3.1 L 04/12/18 04/12/18 04/12/18 04:00 04:04 05:21 WBC Hct 34.9 L MCHC 35 H Plt Count 128 L Lymph % (Auto) [place] % (Auto) 10.6 H Lymph # [place] # 0.9 H Seg Neutrophils % Seg Neutrophils # POC ABG pH 7.454 H POC ABG pCO2 POC ABG pO2 Sodium Potassium Chloride BUN Glucose POC Glucose 136 H Hemoglobin A1c Lactic Acid Calcium Phosphorus Magnesium Total Bilirubin AST Total Creatine Kinase CK-MB (CK-2) C-Reactive Protein Total Protein Albumin 04/12/18 04/13/18 04/13/18 11:23 00:21 04:57 WBC Hct MCHC Plt Count Lymph % (Auto) [place] % (Auto) Lymph # [place] # Seg Neutrophils % Seg Neutrophils # POC ABG pH POC ABG pCO2 34.7 L POC ABG pO2 125 H Sodium Potassium Chloride BUN Glucose POC Glucose 166 H 143 H Hemoglobin A1c Lactic Acid Calcium Phosphorus Magnesium Total Bilirubin AST Total Creatine Kinase CK-MB (CK-2) C-Reactive Protein Total Protein Albumin 04/13/18 04/13/18 04/13/18 05:02 05:02 12:16 WBC Hct MCHC Plt Count Lymph % (Auto) [place] % (Auto) Lymph # [place] # Seg Neutrophils % Seg Neutrophils # POC ABG pH POC ABG pCO2 POC ABG pO2 Sodium Potassium Chloride BUN Glucose POC Glucose 161 H 170 H Hemoglobin A1c Lactic Acid Calcium Phosphorus Magnesium Total Bilirubin AST Total Creatine Kinase 3456 H CK-MB (CK-2) C-Reactive Protein Total Protein Albumin Chest x-ray: image reviewed (ETT in good position) Allied health notes reviewed: nursing
[2018-04-14] MEDS: HumaLOG SUB-Q SCH ×4 (00:50→17:15)
[2018-04-14] MEDS: KEPPRA 750 MG in NACL 0.9% 100 ML IV SCH ×5 (00:50→23:13)
[2018-04-14] MEDS: DUONEB *Not for PRN Use IH SCH ×3 (08:16→19:52)
--- NOTE | 2018-04-14 10:35 | XRay Report ---
FINAL REPORT EXAM: XR CHEST 1V AP HISTORY: follow up respiratory failure TECHNIQUE: Frontal chest x-ray. PRIORS: Chest x-ray April 13, 2018. FINDINGS: Hypoaerated lungs accentuate the pulmonary markings and cardiac silhouette. Cardiac silhouette is within normal limits. Ill-defined opacity in the right lung base is relatively unchanged compared to the prior. Mildly prom inent bilateral pulmonary markings. No pneumothorax. No significant effusion. No left consolidation. There are no suspicious osseous lesions. Endotracheal tube tip is approximately 2.3 cm above the yanely. Low lying. Recommend endotracheal tub e at approximately 5 cm above the yanely. Right PICC line tip is near the cavoatrial junction. Stable. Enteric tube is in the stomach. IMPRESSION: Recommend repositioning of the endotracheal tube Pulmonary markings may represent mild pulmonary vascular congestion, pneumonia, or acute pneumonitis. Focal infiltrate, edema, or subsegmental atelectasis at the right lung base. Overall stable compared to prior. Simón level II reporting initiated.
[2018-04-14] MEDS: ZITHROMAX 500 MG in NACL 0.9% 250ML 250 ML IV SCH (11:15)
[2018-04-14] MEDS: ROCEPHIN/NS 2 GM/100 ML 2 GM/100 ML BAG IV SCH (11:17)
[2018-04-14] MEDS: LOVENOX SUB-Q SCH (11:17)
[2018-04-14] MEDS: SODIUM CHLORIDE FLUSH SYRINGE 10 ML IV SCH ×2 (11:22→21:16)
[2018-04-14] MEDS: PEPCID IV SCH ×2 (11:32→21:15)
[2018-04-14] MEDS: fentaNYL DRIP Premix 2,000 MCG/100 ML BAG IV SCH (11:33)
--- NOTE | 2018-04-14 13:09 | Consultation ---
History of Present Illness - Reason for Consult Consult date: 04/14/18 pneumonia Requesting physician: MIGUEL A WOLFE - History of Present Illness 78 y/o male with history of hypertension, diabetes, coronary artery disease; admitted on 04/09/2018 due to be found unresponsive at home when the family has not heard from him. EMS was called, his blood sugar was undetectable, D50 was given, he became more alert. History is taken from review of records. In the emergency room, temp 93.5-->100.3, HR 98, R 26, BP 164/91. WBC 13.6. Hg 14.7. Plat 180. Sodium 132. Creat 0.9. Lactate 2.1. Bili 2.2. AST 107. UA neg. Blood culture 04/09/2018 no growth so far, Blood culture 04/11/2018 no growth so far, Urine culture 04/10/2018 no growth so far, sputum culture 04/10/2018 upper respiratory mikayla. CXR focal infiltrate RLL. He had a seizure, his blood sugar was well over 100, he was given IV ativan, status post loading dose of Keppra. 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 denies: smoking (not for many years), alcohol abuse, prescription drug abuse, IV drug use Family history: diabetes (sister, brother), hypertension (3 sisters, several brothers), other (no epilepsy ). denies: stroke Medications and Allergies Allergies Allergy/AdvReac Type Severity Reaction Status Date / Time No Known Allergies Allergy Unverified 05/04/15 21:26 Home Medications Medication Instructions Recorded Confirmed Last Taken Type Gabapentin [Neurontin] 100 mg PO HS 04/10/18 04/10/18 Unknown History Insulin Aspart Prot/Aspart(Nf) 6 - 8 units SUB-Q QAM 04/10/18 04/10/18 Unknown History [Novolog Mix 70/30] Insulin Aspart Prot/Aspart(Nf) 28 units SUB-Q QPM 04/10/18 04/10/18 Unknown History [Novolog Mix 70/30] Lisinopril [Zestril] 20 mg PO QDAY 04/10/18 04/10/18 Unknown History Metoprolol Tartrate 25 mg PO BID 04/10/18 04/10/18 Unknown History Pravastatin [Pravachol] 40 mg PO QHS 04/10/18 04/10/18 Unknown History Tamsulosin HCl [Flomax] 0.4 mg PO HS 04/10/18 04/10/18 Unknown History amLODIPine [Norvasc] 10 mg PO DAILY 04/10/18 04/10/18 Unknown History traMADol [Ultram] 50 mg PO QDAY PRN 04/10/18 04/10/18 Unknown History Active Meds: Active Medications Acetaminophen (Tylenol) 650 mg PO Q4H PRN PRN Reason: Fever >101 Albuterol/Ipratropium (Duoneb *Not For Prn Use*) 1 ampul IH TIDRT [facility] Last Admin: 04/14/18 08:16 Dose: 1 ampul Documented by: Lipase/Protease/Amylase (Christiano Mclain 10,500 Unit) 1 each FEEDTUBE PRN PRN PRN Reason: For Clogged Feeding Tube Enoxaparin Sodium (Lovenox) 40 mg SUB-Q QDAY@1000 [facility] Last Admin: 04/14/18 11:17 Dose: 40 mg Documented by: Famotidine (Pepcid) 20 mg IV BID [facility] Last Admin: 04/14/18 11:32 Dose: 20 mg Documented by: Fentanyl (Sublimaze) 50 mcg IV Q10MIN PRN PRN Reason: ANALGESIA Hydrophilic Ointment (Vaseline Lip Therapy) 1 applic TP Q2HR PRN PRN Reason: Dry Lips Levetiracetam 750 mg/ Sodium (Chloride) 107.5 mls @ 400 mls/hr IV Q6HR [facility] Last Admin: 04/14/18 11:15 Dose: 400 mls/hr Documented by: Propofol (Diprivan 10 Mg/Ml) 1,000 mg in 100 mls @ 6.09 mls/hr IV TITR [facility]; Protocol Sodium Chloride (Nacl 0.9% 1000 Ml) 1,000 mls @ 125 mls/hr IV DIRECT [facility] Last Admin: 04/12/18 09:13 Dose: 100 mls/hr Documented by: Norepinephrine (Levophed Drip 4 Mg/Ns 250 Ml) 4 mg in 250 mls @ 7.5 mls/hr IV TITR [facility]; Protocol Fentanyl Citrate (Fentanyl Drip Premix) 2,000 mcg in 100 mls @ 4.73 mls/hr IV TITR [facility]; Protocol Last Admin: 04/14/18 11:33 Dose: 0.51 mcg/kg/hr, 2.42 mls/hr Documented by: Vasopressin 20 unit/ Sodium (Chloride) 101 mls @ 9.09 mls/hr IV TITR [facility]; Protocol Azithromycin 500 mg/ Sodium (Chloride) 250 mls @ 250 mls/hr IV Q24HR [facility] Last Admin: 04/14/18 11:15 Dose: 250 mls/hr Documented by: Ceftriaxone Sodium (Rocephin/Ns 2 Gm/100 Ml) 2 gm in 100 mls @ 200 mls/hr IV Q24HR [facility] Last Admin: 04/14/18 11:17 Dose: 200 mls/hr Documented by: Insulin Human Lispro (Humalog) 0 unit SUB-Q Q6HR [facility]; Protocol Last Admin: 04/14/18 11:30 Dose: 4 unit Documented by: Multi-Ingred Cream/Lotion/Oil/Oint (Artificial Tears Ophth Oint) 1 applic OU Q4HR PRN PRN Reason: Dry Eye(s) Ondansetron HCl (Zofran) 4 mg IV Q8H PRN PRN Reason: Nausea And Vomiting Simple Syrup (Simple Syrup) 15 ml FEEDTUBE PRN PRN PRN Reason: Hypoglycemia Simple Syrup (Simple Syrup) 30 ml FEEDTUBE PRN PRN PRN Reason: Hypoglycemia Sodium Bicarbonate (Sodium Bicarbonate) 325 mg FEEDTUBE PRN PRN PRN Reason: For Clogged Feeding Tube Sodium Chloride (Sodium Chloride Flush Syringe 10 Ml) 10 ml IV BID [facility] Last Admin: 04/14/18 11:22 Dose: 10 ml Documented by: Sodium Chloride (Sodium Chloride Flush Syringe 10 Ml) 10 ml IV PRN PRN PRN Reason: LINE FLUSH Physical Examination - Physical Exam Narrative exam: General appearance:lethargic, intubated on CPAP in NAD Eyes: anicteric sclerae, moist conjunctivae; no lid-lag; PERRLA HENT: Atraumatic; oropharynx ETT/NGT Neck: Trachea midline; supple, no thyromegaly or lymphadenopathy Lungs: griffin coarse BS CV: RRR, no murmurs Abdomen: Soft, non-tender; no masses or hepatosplenomegaly Extremities: No peripheral edema or extremity lymphadenopathy Skin: Normal temperature, turgor and texture; no rash, ulcers or subcutaneous nodules Psych:letghargic. Neuro:lethargic Condomn cath - Constitutional Vitals: Vital Signs Temp Pulse Resp BP Pulse Ox 98.3 F 111 H 15 149/63 100 04/14/18 12:00 04/14/18 11:42 04/14/18 11:42 04/14/18 11:42 04/14/18 11:42 Temperature -Last 24 Hours Temperature 98.3 F Temperature 98.1 F Temperature 100.3 F Temperature 100.2 F Temperature 100.4 F Temperature 98.4 F Results - Labs CBC & Chem 7: 04/12/18 04:00 04/12/18 04:00 Labs: Abnormal lab results 04/13/18 04/13/18 04/14/18 Range/Units 18:52 23:09 04:35 POC ABG pH 7.467 H (7.35-7.45) POC Glucose 196 H 219 H (70-105) Total Creatine Kinase (55-170) units/L 04/14/18 04/14/18 04/14/18 Range/Units 05:00 05:26 11:20 POC ABG pH (7.35-7.45) POC Glucose 249 H 260 H (70-105) Total Creatine Kinase 2247 H (55-170) units/L Assessment and Plan Cultures: Blood culture 04/09/2018 no growth so far Urine culture 04/10/2018 no growth so far Sputum culture 04/10/2018 upper respiratory mikayla. Assessment: 78 y/o male with history of hypertension, diabetes, coronary artery disease; admitted on 04/09/2018 due to be found unresponsive at home when the family has not heard from him. EMS was called, his blood sugar was undetectable: 1) Sepsis: Present on admission, manifested by hyothermia-fever, tachycardia, leukocytosis. Etiology most likely aspiration pneumonia. Blood culture 04/11/2018 no growth so far. UA neg. 2) Presumed aspiration versus CAP: CXR focal infiltrate RLL. Sputum culture 04/10/2018 upper respiratory mikayla. Influenza neg. 3) Acute respiratory failure: from encephalopathy/pneumonia 4) Generalized seizures: from hypoglycemia 5) Elevated LFTs: from sepsis or other etiologies? 6) Acute encephalopathy: post seizures/ischimia. Recommendations: - follow-up blood cultures - continue ceftriaxone 2 gm IV qday and azithromycin for now - add flagyl - monitor mentation - check liver US and viral hepatitis serology Will follow. Tiffanie Crowe MD Infectious Diseases Dem[employer] Equipment [employer] [facility], [place] [facility] [phone]
--- NOTE | 2018-04-14 14:07 | Progress Note ---
Assessment and Plan Assessment and plan: 78-year-old male patient with significant history of hypertension diabetes coronary artery disease was admitted through emergency room with history of unresponsivenessat home for unknown. At that time he had hypoglycemia and seizure activity,Patient was unable to protect his airway and was intubated on ventilatory support admitted to ICU, Hospital course -Neuro: Patient had CT scan 2 days should not show acute abnormality. 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 The family wants to continue aggressive care. If the patient is not able, he will most likely need to be trached and peg FEN; his electrolytes namely potassium and phosphate were repleted ID; the patient received empiric antibiotics for pneumonia Musculoskeletal; Traumatic Rhabdomyolysis; status post IV fluids and improved His medications were optimized for his chronic conditions Diagnosis Acute metabolic encephalopathy Hypoxic ischemic encephalopathy Pneumonia Sepsis Acute respiratory failure on mechanical ventilator greater than 96 hours Seizures due to hypoglycemia Hypoglycemia Hypokalemia Hyponatremia Type 2 diabetes Obesity Cr Care 33 min History Interval history: The patient remains intubated , off sedation, nonverbal due to intubation Unable to communicates with gestures or any other form of communication No fevers, seizures, or vomiting Hospitalist Physical - Physical exam Narrative exam: General.: Intubated , no distress HEENT: Moist mucous membranes, extraocular muscles intact, no lymphadenopathy Neck: supple Cardiac: S1-S2 heard Lungs: clear to auscultation bilaterally Abdomen: soft , nontender, nondistended, bowel sounds positive Extremities: no edema clubbing or cyanosis Skin: no rash or lesions Neurologic: Intubated , he is not sedated He opens eyes, moves head, opens his mouth, he moves his upper extremities, he does not obey commands, he does not turn to voice, doesn't maintain any eye contact - Constitutional Vitals: Temp Pulse Resp BP Pulse Ox 98.3 F 77 11 L 154/63 100 04/14/18 12:00 04/14/18 13:50 04/14/18 13:50 04/14/18 13:01 04/14/18 13:01 General appearance: Present: no acute distress, obese (Morbidly obese), other (intubated on vent) Results - Labs CBC & Chem 7: 04/12/18 04:00 04/12/18 04:00 Labs: Laboratory Last Values WBC 8.1 K/mm3 (4.5-11.0) 04/12/18 04:00 RBC 3.98 M/mm3 (3.65-5.03) 04/12/18 04:00 Hgb 12.0 gm/dl (11.8-15.2) 04/12/18 04:00 Hct 34.9 % (35.5-45.6) L 04/12/18 04:00 MCV 88 fl (84-94) 04/12/18 04:00 MCH 30 pg (28-32) 04/12/18 04:00 MCHC 35 % (32-34) H 04/12/18 04:00 RDW 14.4 % (13.2-15.2) 04/12/18 04:00 Plt Count 128 K/mm3 (140-440) L 04/12/18 04:00 Lymph % (Auto) 21.7 % (13.4-35.0) 04/12/18 04:00 [place] % (Auto) 10.6 % (0.0-7.3) H 04/12/18 04:00 Eos % (Auto) 1.2 % (0.0-4.3) 04/12/18 04:00 Baso % (Auto) 0.7 % (0.0-1.8) 04/12/18 04:00 Lymph # 1.8 K/mm3 (1.2-5.4) 04/12/18 04:00 [place] # 0.9 K/mm3 (0.0-0.8) H 04/12/18 04:00 Eos # 0.1 K/mm3 (0.0-0.4) 04/12/18 04:00 Baso # 0.1 K/mm3 (0.0-0.1) 04/12/18 04:00 Seg Neutrophils % 65.8 % (40.0-70.0) 04/12/18 04:00 Seg Neutrophils # 5.3 K/mm3 (1.8-7.7) 04/12/18 04:00 APTT 24.8 Sec. (24.2-36.6) 04/09/18 23:16 POC ABG pH 7.467 (7.35-7.45) H 04/14/18 04:35 POC ABG pCO2 38.3 (35-45) 04/14/18 04:35 POC ABG pO2 98 (80-105) 04/14/18 04:35 POC ABG HCO3 27.7 04/14/18 04:35 POC ABG Total CO2 29 04/14/18 04:35 POC ABG O2 Sat 98 04/14/18 04:35 POC ABG Base Excess 4 04/14/18 04:35 FiO2 30 % 04/14/18 04:35 Sodium 140 mmol/L (137-145) D 04/12/18 04:00 Potassium 3.3 mmol/L (3.6-5.0) L 04/12/18 04:00 Chloride 103.7 mmol/L (98-107) 04/12/18 04:00 Carbon Dioxide 26 mmol/L (22-30) 04/12/18 04:00 Anion Gap 14 mmol/L 04/12/18 04:00 BUN 6 mg/dL (9-20) L 04/12/18 04:00 Creatinine 0.8 mg/dL (0.8-1.5) 04/12/18 04:00 Estimated GFR > 60 ml/min 04/12/18 04:00 BUN/Creatinine Ratio 8 % 04/12/18 04:00 Glucose 151 mg/dL (75-100) H 04/12/18 04:00 POC Glucose 260 (70-105) H 04/14/18 11:20 Hemoglobin A1c 6.4 % (4-6) H 04/11/18 04:28 Lactic Acid 1.70 mmol/L (0.7-2.0) 04/10/18 02:47 Calcium 7.3 mg/dL (8.4-10.2) L 04/12/18 04:00 Phosphorus 2.00 mg/dL (2.5-4.5) L 04/12/18 04:00 Magnesium 2.30 mg/dL (1.7-2.3) 04/12/18 04:00 Total Bilirubin 2.80 mg/dL (0.1-1.2) H 04/12/18 04:00 AST 121 units/L (5-40) H 04/12/18 04:00 ALT 48 units/L (7-56) 04/12/18 04:00 Alkaline Phosphatase 51 units/L (35-129) 04/12/18 04:00 Total Creatine Kinase 2247 units/L (55-170) H 04/14/18 05:00 CK-MB (CK-2) 30.0 ng/mL (0.0-4.0) H 04/10/18 10:37 CK-MB (CK-2) Rel Index 0.3 (0-4) 04/10/18 10:37 Troponin T < 0.010 ng/mL (0.00-0.029) 04/10/18 10:37 C-Reactive Protein 7.20 mg/dL (0.00-1.30) H 04/11/18 13:43 Total Protein 5.9 g/dL (6.3-8.2) L 04/12/18 04:00 Albumin 3.1 g/dL (3.9-5) L 04/12/18 04:00 Albumin/Globulin Ratio 1.1 % 04/12/18 04:00 Urine Color Yellow (Yellow) 04/10/18 01:07 Urine Turbidity Clear (Clear) 04/10/18 01:07 Urine pH 5.0 (5.0-7.0) 04/10/18 01:07 Ur Specific [place] 1.019 (1.003-1.030) 04/10/18 01:07 Urine Protein 100 mg/dl mg/dL (Negative) 04/10/18 01:07 Urine Glucose (UA) Neg mg/dL (Negative) 04/10/18 01:07 Urine Ketones Neg mg/dL (Negative) 04/10/18 01:07 Urine Blood Lg (Negative) 04/10/18 01:07 Urine Nitrite Neg (Negative) 04/10/18 01:07 Urine Bilirubin Neg (Negative) 04/10/18 01:07 Urine Urobilinogen < 2.0 mg/dL (<2.0) 04/10/18 01:07 Ur Leukocyte Esterase Neg (Negative) 04/10/18 01:07 Urine WBC (Auto) 1.0 /HPF (0.0-6.0) 04/10/18 01:07 Urine RBC (Auto) 9.0 /HPF (0.0-6.0) 04/10/18 01:07 U Epithel Cells (Auto) < 1.0 /HPF (0-13.0) 04/10/18 01:07 Urine Mucus Few /HPF 04/10/18 01:07 Influenza A (Rapid) Negative (Negative) 04/11/18 15:08 Influenza B (Rapid) Negative (Negative) 04/11/18 15:08 Nutrition/Malnutrition Assess - Dietary Evaluation Nutrition/Malnutrition Findings: Nutrition Notes Start: 04/11/18 10:20 Freq: Status: Active Protocol: Document 04/11/18 10:20 CP (Rec: 04/11/18 11:17 CP [id number]) Co-Sign 04/11/18 10:20 LP Nutrition Notes Need for Assessment generated from: MD Order Initial or Follow up Assessment Current Diagnosis Coronary Artery Disease Diabetes Hypertension Other Pertinent Diagnosis AMS, hypoglycemia, new onset seizure, hypothermia Current Diet TF Labs/Tests Na: 133 K: 3.5 BUN 7 B Phos: 1.8 M.5 Pertinent Medications Humalog 1 unit Height 5 ft 9 in Weight 91.8 kg [place] Body Weight (kg) 72.72 BMI 29.9 Subjective/Other Information MD consult for TF. Wt (91.8 kg ) obtained from bedside scale. Burn Absent Trauma Absent #1 Nutrition Diagnosis Inadequate oral intake Etiology Vent status As Evidenced by Signs and Symptoms MD consult for TF Is patient on ventilator? Yes Is Patient Ambulatory and/or Out of Bed No REE-([facility]-confined to bed) [phone] Calculation Used for Recommendations [facility] Additional Notes Pro: 110-184 g (1.2-2 g/kg) Fluids: 1mL/kcal Nutrition Intervention Nutrition Support: Vital AF 1.2 at 65mL/hr. Water flush 150 q4h. Kcal 1,872 Protein (gm) 117 Carbohydrates (gm) 173 Fat (gm) 84 Fluid (mL) 811 Fiber (gm) 5 Goal #1 TF to meet at least 80% of energy/protein needs Goal #2 TF tolerance Anticipated Discharge Needs: Unable to determine at this time Follow-Up By: 04/15/18 Additional Comments F/U: TF tolerance/TF at goal rate
[2018-04-14] MEDS: FLAGYL 500 MG/100 ML 500 MG/100 ML BAG IV SCH ×2 (17:17→21:15)
--- NOTE | 2018-04-14 18:03 | Progress Note ---
Assessment and Plan Acute Hypoxemic Respiratory Failure New Onset Seizures (presumed secondary to Hypoglycemia) Acute Encephalopathy (Toxic -Metabolic) Diabetes Type II Rhabdomyolysis Obesity HTN Possible JOE Hyponatremia (mild) Hypomagnesemia leucocytosis (AMS is rate limiting step to safe extubation at this point) - Pull ETT 2 cm to 22 cm STEPHANIE - reduce Psupp to 8 cm H2O as pulling large volumes and having apneic spells during SBT - keep set rate at 10/min - continue daily SBT's as tolerated - anti-infective's adjusted by ID and input appreciated - CRP equivocally elevated but lactate WNL - continue to wean supplemental oxygen to keep O2 sats > 90% - continue bronchodilators with pulmonary hygiene per RT - VAP bundle addressed - continue daily SAT's - titrate sedatives for RASS 0 to -1 (on hold re: AMS) - neurology evaluation ongoing - PICC line placed - GI & VTE prophylaxis - trend CpK level - continue IVF fluids re: Rhabdo - replace electrolytes - continue AED's (Keppra) - continue pertinent home med's - continue enteral nutrition as tolerated - continue accuchecks q6h with glycemic control per SSI for target BG 140-180 mg/dL - will likely need outpatient PSG to evaluate JOE - continue other care per attending / other system consultant's CODE STATUS: FULL CODE The high probability of a clinically significant, sudden or life-threatening deterioration of the [cardiac, neurology] system(s) required my full and direct attention, intervention and personal management. The aggregate critical care time was [35] minutes without overlap. Time includes spent on; [x] Data Review and interpretation [x] Patient assessment and monitoring of vital signs [x] Documentation [x] Medication orders and management Subjective Date of service: 04/14/18 Principal diagnosis: Ac Hypoxemic Resp Failure; Seizures; Encephalopathy; DM II; Rhabdomyolysis Interval history: Patient is seen today for: Acute Hypoxemic Respiratory Failure; New Onset Seizures (presumed secondary to Hypoglycemia); Acute Encephalopathy (Toxic - Metabolic); Diabetes Type II; Rhabdomyolysis Seen and examined at bedside; 24hour events reviewed; nursing and respiratory care staff consulted; no adverse overnight events reported to me; resting peacefully in bed; remains on MVS; AMS is persistent; no emesis or overt aspiration; tenuously tolrating SBT's due to apnea's but minute ventilation is adequate Objective Vital Signs - 12hr 04/14/18 04/14/18 04/14/18 07:01 08:00 08:13 Temperature 98.1 F Pulse Rate 63 62 62 Pulse Rate [ Bilateral Throughout] Pulse Rate [ 76 From Monitor] Respiratory 11 L 10 L 13 Rate Respiratory Rate [Bilateral Throughout] Blood Pressure 139/54 143/55 158/58 O2 Sat by Pulse 100 100 100 Oximetry 04/14/18 04/14/18 04/14/18 08:16 08:26 09:01 Temperature Pulse Rate 64 Pulse Rate [ 65 64 Bilateral Throughout] Pulse Rate [ From Monitor] Respiratory 10 L Rate Respiratory 10 L 10 L Rate [Bilateral Throughout] Blood Pressure 123/46 O2 Sat by Pulse 100 Oximetry 04/14/18 04/14/18 04/14/18 10:00 11:00 11:42 Temperature Pulse Rate 58 L 72 111 H Pulse Rate [ Bilateral Throughout] Pulse Rate [ From Monitor] Respiratory 10 L 10 L 15 Rate Respiratory Rate [Bilateral Throughout] Blood Pressure 133/48 149/63 149/63 O2 Sat by Pulse 100 100 100 Oximetry 04/14/18 04/14/18 04/14/18 12:00 13:01 13:38 Temperature 98.3 F Pulse Rate 70 76 Pulse Rate [ 70 Bilateral Throughout] Pulse Rate [ 76 From Monitor] Respiratory 8 L 10 L Rate Respiratory 14 Rate [Bilateral Throughout] Blood Pressure 146/61 154/63 O2 Sat by Pulse 100 100 Oximetry 04/14/18 04/14/18 04/14/18 13:50 14:00 15:00 Temperature Pulse Rate 93 H 66 Pulse Rate [ 77 Bilateral Throughout] Pulse Rate [ From Monitor] Respiratory 19 10 L Rate Respiratory 11 L Rate [Bilateral Throughout] Blood Pressure 154/63 159/61 O2 Sat by Pulse 100 100 Oximetry 04/14/18 16:23 Temperature Pulse Rate 66 Pulse Rate [ Bilateral Throughout] Pulse Rate [ From Monitor] Respiratory 14 Rate Respiratory Rate [Bilateral Throughout] Blood Pressure 158/56 O2 Sat by Pulse 100 Oximetry Constitutional: no acute distress, other (Elderly looking AAM, normocephalic and atraumatic with mildly increased respiratory effort on MVS) Eyes: non-icteric ENT: oropharynx moist, other (ETT 23 cm STEPHANIE) Neck: supple, no lymphadenopathy, no JVD, other (large neck circumference) Effort: mildly labored Ascultation: Bilateral: diminished breath sounds, rhonchi Percussion: Bilateral: not dull Cardiovascular: regular rate and rhythm Gastrointestinal: normoactive bowel sounds, soft, non-tender, non-distended, other (protuberant) Integumentary: normal Extremities: no cyanosis, no edema, pulses normal, no ischemia or petechiae Neurologic: non-focal exam (grossly), unable to assess Psychiatric: other (unable to assess) CBC and BMP: 04/12/18 04:00 04/12/18 04:00 ABG, PT/INR, D-dimer: ABG POC ABG pH 7.467 (7.35-7.45) H 04/14/18 04:35 POC ABG pCO2 38.3 (35-45) 04/14/18 04:35 POC ABG pO2 98 (80-105) 04/14/18 04:35 POC ABG HCO3 27.7 04/14/18 04:35 POC ABG Total CO2 29 04/14/18 04:35 POC ABG O2 Sat 98 04/14/18 04:35 Abnormal lab findings: Abnormal Labs 04/09/18 04/09/18 04/09/18 23:16 23:16 23:16 WBC 13.6 H Hct MCHC Plt Count Lymph % (Auto) 9.4 L [place] % (Auto) Lymph # [place] # Seg Neutrophils % 87.3 H Seg Neutrophils # 11.9 H POC ABG pH POC ABG pCO2 POC ABG pO2 Sodium 132 L Potassium Chloride 92.7 L BUN Glucose 143 H POC Glucose Hemoglobin A1c Lactic Acid 2.10 H* Calcium Phosphorus Magnesium Total Bilirubin 2.20 H AST 107 H Total Creatine Kinase CK-MB (CK-2) C-Reactive Protein Total Protein Albumin 04/10/18 04/10/18 04/10/18 00:38 00:55 01:13 WBC Hct MCHC Plt Count Lymph % (Auto) [place] % (Auto) Lymph # [place] # Seg Neutrophils % Seg Neutrophils # POC ABG pH POC ABG pCO2 POC ABG pO2 Sodium Potassium Chloride BUN Glucose POC Glucose 117 H 121 H Hemoglobin A1c Lactic Acid 2.10 H* Calcium Phosphorus Magnesium Total Bilirubin AST Total Creatine Kinase CK-MB (CK-2) C-Reactive Protein Total Protein Albumin 04/10/18 04/10/18 04/10/18 02:10 03:51 04:07 WBC 14.0 H Hct MCHC Plt Count Lymph % (Auto) 7.5 L [place] % (Auto) Lymph # 1.1 L [place] # 1.0 H Seg Neutrophils % 84.9 H Seg Neutrophils # 11.8 H POC ABG pH POC ABG pCO2 POC ABG pO2 Sodium Potassium Chloride BUN Glucose POC Glucose 153 H 158 H Hemoglobin A1c Lactic Acid Calcium Phosphorus Magnesium Total Bilirubin AST Total Creatine Kinase CK-MB (CK-2) C-Reactive Protein Total Protein Albumin 04/10/18 04/10/18 04/10/18 04:07 06:56 09:48 WBC Hct MCHC Plt Count Lymph % (Auto) [place] % (Auto) Lymph # [place] # Seg Neutrophils % Seg Neutrophils # POC ABG pH POC ABG pCO2 POC ABG pO2 Sodium 130 L Potassium Chloride 93.4 L BUN Glucose 180 H POC Glucose 251 H 245 H Hemoglobin A1c Lactic Acid Calcium 7.9 L D Phosphorus Magnesium Total Bilirubin AST Total Creatine Kinase 7857 H CK-MB (CK-2) 34.3 H C-Reactive Protein Total Protein Albumin 04/10/18 04/10/18 04/10/18 10:37 12:44 17:31 WBC Hct MCHC Plt Count Lymph % (Auto) [place] % (Auto) Lymph # [place] # Seg Neutrophils % Seg Neutrophils # POC ABG pH POC ABG pCO2 45.6 H POC ABG pO2 374 H Sodium Potassium Chloride BUN Glucose POC Glucose 348 H Hemoglobin A1c Lactic Acid Calcium Phosphorus Magnesium Total Bilirubin AST Total Creatine Kinase 9880 H CK-MB (CK-2) 30.0 H C-Reactive Protein Total Protein Albumin 04/10/18 04/11/18 04/11/18 23:36 03:52 04:28 WBC 12.2 H Hct MCHC Plt Count 132 L Lymph % (Auto) [place] % (Auto) 10.2 H Lymph # [place] # 1.2 H Seg Neutrophils % 75.1 H Seg Neutrophils # 9.1 H POC ABG pH 7.495 H POC ABG pCO2 32.4 L POC ABG pO2 Sodium Potassium Chloride BUN Glucose POC Glucose 148 H Hemoglobin A1c Lactic Acid Calcium Phosphorus Magnesium Total Bilirubin AST Total Creatine Kinase CK-MB (CK-2) C-Reactive Protein Total Protein Albumin 04/11/18 04/11/18 04/11/18 04:28 04:28 05:22 WBC Hct MCHC Plt Count Lymph % (Auto) [place] % (Auto) Lymph # [place] # Seg Neutrophils % Seg Neutrophils # POC ABG pH POC ABG pCO2 POC ABG pO2 Sodium 133 L Potassium 3.5 L Chloride 95.1 L BUN 7 L Glucose 206 H POC Glucose 178 H Hemoglobin A1c 6.4 H Lactic Acid Calcium 7.7 L Phosphorus 1.80 L Magnesium 1.50 L Total Bilirubin 4.10 H AST 168 H Total Creatine Kinase 9352 H CK-MB (CK-2) C-Reactive Protein Total Protein Albumin 3.4 L 04/11/18 04/11/18 04/11/18 11:28 13:43 17:30 WBC Hct MCHC Plt Count Lymph % (Auto) [place] % (Auto) Lymph # [place] # Seg Neutrophils % Seg Neutrophils # POC ABG pH POC ABG pCO2 POC ABG pO2 Sodium Potassium Chloride BUN Glucose POC Glucose 196 H 142 H Hemoglobin A1c Lactic Acid Calcium Phosphorus Magnesium Total Bilirubin AST Total Creatine Kinase CK-MB (CK-2) C-Reactive Protein 7.20 H Total Protein Albumin 04/11/18 04/11/18 04/12/18 18:59 23:23 04:00 WBC Hct MCHC Plt Count Lymph % (Auto) [place] % (Auto) Lymph # [place] # Seg Neutrophils % Seg Neutrophils # POC ABG pH 7.489 H POC ABG pCO2 34.5 L POC ABG pO2 Sodium Potassium 3.3 L Chloride BUN 6 L Glucose 151 H POC Glucose 129 H Hemoglobin A1c Lactic Acid Calcium 7.3 L Phosphorus 2.00 L Magnesium Total Bilirubin 2.80 H AST 121 H Total Creatine Kinase 5177 H CK-MB (CK-2) C-Reactive Protein Total Protein 5.9 L Albumin 3.1 L 04/12/18 04/12/18 04/12/18 04:00 04:04 05:21 WBC Hct 34.9 L MCHC 35 H Plt Count 128 L Lymph % (Auto) [place] % (Auto) 10.6 H Lymph # [place] # 0.9 H Seg Neutrophils % Seg Neutrophils # POC ABG pH 7.454 H POC ABG pCO2 POC ABG pO2 Sodium Potassium Chloride BUN Glucose POC Glucose 136 H Hemoglobin A1c Lactic Acid Calcium Phosphorus Magnesium Total Bilirubin AST Total Creatine Kinase CK-MB (CK-2) C-Reactive Protein Total Protein Albumin 04/12/18 04/13/18 04/13/18 11:23 00:21 04:57 WBC Hct MCHC Plt Count Lymph % (Auto) [place] % (Auto) Lymph # [place] # Seg Neutrophils % Seg Neutrophils # POC ABG pH POC ABG pCO2 34.7 L POC ABG pO2 125 H Sodium Potassium Chloride BUN Glucose POC Glucose 166 H 143 H Hemoglobin A1c Lactic Acid Calcium Phosphorus Magnesium Total Bilirubin AST Total Creatine Kinase CK-MB (CK-2) C-Reactive Protein Total Protein Albumin 04/13/18 04/13/18 04/13/18 05:02 05:02 12:16 WBC Hct MCHC Plt Count Lymph % (Auto) [place] % (Auto) Lymph # [place] # Seg Neutrophils % Seg Neutrophils # POC ABG pH POC ABG pCO2 POC ABG pO2 Sodium Potassium Chloride BUN Glucose POC Glucose 161 H 170 H Hemoglobin A1c Lactic Acid Calcium Phosphorus Magnesium Total Bilirubin AST Total Creatine Kinase 3456 H CK-MB (CK-2) C-Reactive Protein Total Protein Albumin 04/13/18 04/13/18 04/14/18 18:52 23:09 04:35 WBC Hct MCHC Plt Count Lymph % (Auto) [place] % (Auto) Lymph # [place] # Seg Neutrophils % Seg Neutrophils # POC ABG pH 7.467 H POC ABG pCO2 POC ABG pO2 Sodium Potassium Chloride BUN Glucose POC Glucose 196 H 219 H Hemoglobin A1c Lactic Acid Calcium Phosphorus Magnesium Total Bilirubin AST Total Creatine Kinase CK-MB (CK-2) C-Reactive Protein Total Protein Albumin 04/14/18 04/14/18 04/14/18 05:00 05:26 11:20 WBC Hct MCHC Plt Count Lymph % (Auto) [place] % (Auto) Lymph # [place] # Seg Neutrophils % Seg Neutrophils # POC ABG pH POC ABG pCO2 POC ABG pO2 Sodium Potassium Chloride BUN Glucose POC Glucose 249 H 260 H Hemoglobin A1c Lactic Acid Calcium Phosphorus Magnesium Total Bilirubin AST Total Creatine Kinase 2247 H CK-MB (CK-2) C-Reactive Protein Total Protein Albumin 04/14/18 17:04 WBC Hct MCHC Plt Count Lymph % (Auto) [place] % (Auto) Lymph # [place] # Seg Neutrophils % Seg Neutrophils # POC ABG pH POC ABG pCO2 POC ABG pO2 Sodium Potassium Chloride BUN Glucose POC Glucose 284 H Hemoglobin A1c Lactic Acid Calcium Phosphorus Magnesium Total Bilirubin AST Total Creatine Kinase CK-MB (CK-2) C-Reactive Protein Total Protein Albumin Chest x-ray: image reviewed (ETT riding low and will pull 2 cm) Allied health notes reviewed: nursing
[2018-04-14 18:26] LABS: Hepatitis B Surface Antigen Non-Reactive (Negative); Hepatitis C Virus Antibody Non-Reactive (NonReactive)
[2018-04-14] MEDS ORDERED: NACL 0.9% 500 ML 500 ML ONE (18:40)
[2018-04-15] MEDS: FLAGYL 500 MG/100 ML 500 MG/100 ML BAG IV SCH ×2 (05:02→22:18)
[2018-04-15] MEDS: HumaLOG SUB-Q SCH ×4 (05:34→20:58)
[2018-04-15] MEDS: KEPPRA 750 MG in NACL 0.9% 100 ML IV SCH (05:59)
--- NOTE | 2018-04-15 06:16 | XRay Report ---
FINAL REPORT PROCEDURE: XR CHEST 1V AP TECHNIQUE: Chest radiograph anteroposterior view. CPT 45153 HISTORY: follow up respiratory failure COMPARISON: No prior studies are available for comparison. FINDINGS: Heart: Normal. Mediastinum/Vessels: Normal. Lungs/Pleural space: Lungs are expanded. There are no infiltrates, effusions or pneumothoraces.. Bony thorax: No acute osseous abnormality. Life support devices: Endotracheal tube is the mid trachea. NG tube is in the stomach. There is a lef t-sided PICC line. The tip is the superior vena cava.. IMPRESSION: The heart size is normal.. Lungs are expanded. There are no infiltrates, effusions or pneumothoraces.. Endotracheal tube is the mid trachea. NG tube is in the stomach. There is a left-sided PICC line. The tip is the superior vena cava..
[2018-04-15] MEDS: DUONEB *Not for PRN Use IH SCH ×3 (08:38→20:44)
--- NOTE | 2018-04-15 09:38 | Progress Note ---
Assessment and Plan Cultures: Blood culture 04/09/2018 no growth so far Urine culture 04/10/2018 no growth so far Sputum culture 04/10/2018 upper respiratory mikayla. Assessment: 78 y/o male with history of hypertension, diabetes, coronary artery disease; admitted on 04/09/2018 due to be found unresponsive at home when the family has not heard from him. EMS was called, his blood sugar was undetectable: 1) Sepsis: Present on admission, manifested by hyothermia-fever, tachycardia, leukocytosis. Etiology most likely aspiration pneumonia. Blood culture 04/11/2018 no growth so far. UA neg. 2) Presumed aspiration versus CAP: CXR focal infiltrate RLL. Sputum culture 04/10/2018 upper respiratory mikayla. Influenza neg. 3) Acute respiratory failure: from encephalopathy/pneumonia 4) Generalized seizures: from hypoglycemia 5) Elevated LFTs: from sepsis or other etiologies? better. Viral hepatitis serology all negative. 6) Acute encephalopathy: post seizures/ischimia. Recommendations: - follow-up blood cultures - continue ceftriaxone D4 of 5, azithromycin D4 of 5 and flagyl D2 of 5 to cover CAP versus aspitsrion pneumonia - monitor mentation - check liver US - pending Will follow. Tiffanie Crowe MD Infectious Diseases [employer] [facility] M [phone] O [phone] Subjective Date of service: 04/15/18 Principal diagnosis: Ac Hypoxemic Resp Failure; Seizures; Encephalopathy; DM II; Rhabdomyolysis Interval history: Remains intubated AC fio2 30%, p 6, on sedation, open eyes, no fever x 24h ROS: unable to obtain Objective - Exam Narrative Exam: General appearance: opne eyes, intubated on AC in NAD Eyes: anicteric sclerae, moist conjunctivae; no lid-lag; PERRLA HENT: Atraumatic; oropharynx ETT/NGT Neck: Trachea midline; supple, no thyromegaly or lymphadenopathy Lungs: griffin coarse BS CV:bradycardic Abdomen: Soft, non-tender; no masses or hepatosplenomegaly Extremities: No peripheral edema or extremity lymphadenopathy Skin: Normal temperature, turgor and texture; no rash, ulcers or subcutaneous nodules Psych:letghargic. Neuro:lethargic Condom cath - Constitutional Vitals: Vital Signs Temp Pulse Resp BP Pulse Ox 99.3 F 60 12 157/66 100 02/25/19 04:00 04/15/18 08:49 04/15/18 08:49 04/15/18 08:31 04/15/18 08:31 Temperature -Last 24 Hours Temperature 99.3 F Temperature 99.8 F Temperature 99.4 F Temperature 98.4 F Temperature 98.3 F - Labs CBC & Chem 7: 04/12/18 04:00 04/12/18 04:00 Labs: Abnormal lab results 04/14/18 04/14/18 04/14/18 Range/Units 11:20 17:04 17:51 POC ABG pCO2 (35-45) POC ABG pO2 79 L (80-105) POC Glucose 260 H 284 H (70-105) 04/14/18 04/15/18 04/15/18 Range/Units 23:53 04:24 05:26 POC ABG pCO2 45.4 H (35-45) POC ABG pO2 78 L (80-105) POC Glucose 203 H 194 H (70-105)
[2018-04-15] MEDS: ROCEPHIN/NS 2 GM/100 ML 2 GM/100 ML BAG IV SCH (12:47)
[2018-04-15] MEDS ORDERED: LANTUS SUB-Q SCH (13:00)
--- NOTE | 2018-04-15 15:22 | Progress Note ---
Assessment and Plan Acute Hypoxemic Respiratory Failure New Onset Seizures (presumed secondary to Hypoglycemia) Acute Encephalopathy (Toxic -Metabolic) Diabetes Type II Rhabdomyolysis Obesity HTN Possible JOE Hyponatremia (mild) Hypomagnesemia leucocytosis (AMS is rate limiting step to safe extubation at this point) - continue PSV trials with Psupp to 8 cm H2O as pulling large volumes and having apneic spells during SBT - keep set rate at 10/min for now - continue daily SBT's as tolerated - anti-infective's adjusted by ID and input appreciated - CRP equivocally elevated but lactate WNL - continue to wean supplemental oxygen to keep O2 sats > 90% - continue bronchodilators with pulmonary hygiene per RT - VAP bundle addressed - continue daily SAT's - titrate sedatives for RASS 0 to -1 (on hold re: AMS) - neurology evaluation ongoing - PICC line placed - GI & VTE prophylaxis - trend CpK level - continue IVF fluids re: Rhabdo - replace electrolytes - continue AED's (Keppra) - continue pertinent home med's - continue enteral nutrition as tolerated - continue accuchecks q6h with glycemic control per SSI for target BG 140-180 mg/dL - will likely need outpatient PSG to evaluate JOE - continue other care per attending / other decorating consultant's CODE STATUS: FULL CODE The high probability of a clinically significant, sudden or life-threatening deterioration of the [cardiac, neurology] system(s) required my full and direct attention, intervention and personal management. The aggregate critical care time was [32] minutes without overlap. Time includes spent on; [x] Data Review and interpretation [x] Patient assessment and monitoring of vital signs [x] Documentation [x] Medication orders and management Subjective Date of service: 04/15/18 Principal diagnosis: Ac Hypoxemic Resp Failure; Seizures; Encephalopathy; DM II; Rhabdomyolysis Interval history: Patient is seen today for: Acute Hypoxemic Respiratory Failure; New Onset Seizures (presumed secondary to Hypoglycemia); Acute Encephalopathy (Toxic - Metabolic); Diabetes Type II; Rhabdomyolysis Seen and examined at bedside; 24hour events reviewed; nursing and respiratory care staff consulted; no adverse overnight events reported to me; resting peacefully in bed; AMS is persistent; did not tolerate PSV trials well so far today; No emesis or overt aspiration Objective Vital Signs - 12hr 04/15/18 04/15/18 04/15/18 04:00 04:22 05:00 Temperature 99.3 F Pulse Rate 61 61 60 Pulse Rate [ Bilateral Throughout] Pulse Rate [ 68 From Monitor] Respiratory 12 12 Rate Respiratory Rate [Bilateral Throughout] Blood Pressure 110/59 110/59 113/62 O2 Sat by Pulse 100 100 100 Oximetry 04/15/18 04/15/18 04/15/18 06:01 07:00 08:00 Temperature 99.5 F Pulse Rate 57 L 52 L 60 Pulse Rate [ Bilateral Throughout] Pulse Rate [ 68 From Monitor] Respiratory 12 12 12 Rate Respiratory Rate [Bilateral Throughout] Blood Pressure 116/54 104/46 104/46 O2 Sat by Pulse 100 100 100 Oximetry 04/15/18 04/15/18 04/15/18 08:31 08:38 08:49 Temperature Pulse Rate 56 L Pulse Rate [ 57 L 60 Bilateral Throughout] Pulse Rate [ From Monitor] Respiratory Rate Respiratory 12 12 Rate [Bilateral Throughout] Blood Pressure 157/66 O2 Sat by Pulse 100 Oximetry 04/15/18 04/15/18 04/15/18 09:00 10:00 11:00 Temperature Pulse Rate 61 60 61 Pulse Rate [ Bilateral Throughout] Pulse Rate [ From Monitor] Respiratory 12 12 12 Rate Respiratory Rate [Bilateral Throughout] Blood Pressure 152/69 143/60 124/59 O2 Sat by Pulse 100 100 100 Oximetry 04/15/18 04/15/18 04/15/18 11:17 11:20 12:00 Temperature 98.9 F Pulse Rate 59 L Pulse Rate [ Bilateral Throughout] Pulse Rate [ 68 From Monitor] Respiratory 18 12 Rate Respiratory Rate [Bilateral Throughout] Blood Pressure 139/62 O2 Sat by Pulse 100 100 Oximetry 04/15/18 04/15/18 04/15/18 13:00 14:01 14:06 Temperature Pulse Rate 58 L 68 68 Pulse Rate [ Bilateral Throughout] Pulse Rate [ From Monitor] Respiratory 12 12 Rate Respiratory Rate [Bilateral Throughout] Blood Pressure 136/62 149/66 149/66 O2 Sat by Pulse 100 100 100 Oximetry 04/15/18 14:48 Temperature Pulse Rate Pulse Rate [ 72 Bilateral Throughout] Pulse Rate [ From Monitor] Respiratory Rate Respiratory 12 Rate [Bilateral Throughout] Blood Pressure O2 Sat by Pulse Oximetry Constitutional: no acute distress, other (Elderly looking AAM, normocephalic and atraumatic with mildly increased respiratory effort on MVS) Eyes: non-icteric ENT: oropharynx moist, other (ETT 23 cm STEPHANIE) Neck: supple, no lymphadenopathy, no JVD, other (large neck circumference) Effort: mildly labored Ascultation: Bilateral: diminished breath sounds, rhonchi Percussion: Bilateral: not dull Cardiovascular: regular rate and rhythm Gastrointestinal: normoactive bowel sounds, soft, non-tender, non-distended, other (protuberant) Integumentary: normal Extremities: no cyanosis, no edema, pulses normal, no ischemia or petechiae Neurologic: non-focal exam (grossly), unable to assess Psychiatric: other (unable to assess) CBC and BMP: 04/12/18 04:00 04/12/18 04:00 ABG, PT/INR, D-dimer: ABG POC ABG pH 7.432 (7.35-7.45) 04/15/18 04:24 POC ABG pCO2 45.4 (35-45) H 04/15/18 04:24 POC ABG pO2 78 (80-105) L 04/15/18 04:24 POC ABG HCO3 30.3 04/15/18 04:24 POC ABG Total CO2 32 04/15/18 04:24 POC ABG O2 Sat 96 04/15/18 04:24 Abnormal lab findings: Abnormal Labs 04/09/18 04/09/18 04/09/18 23:16 23:16 23:16 WBC 13.6 H Hct MCHC Plt Count Lymph % (Auto) 9.4 L Williamson % (Auto) Lymph # Williamson # Seg Neutrophils % 87.3 H Seg Neutrophils # 11.9 H POC ABG pH POC ABG pCO2 POC ABG pO2 Sodium 132 L Potassium Chloride 92.7 L BUN Glucose 143 H POC Glucose Hemoglobin A1c Lactic Acid 2.10 H* Calcium Phosphorus Magnesium Total Bilirubin 2.20 H AST 107 H Total Creatine Kinase CK-MB (CK-2) C-Reactive Protein Total Protein Albumin 04/10/18 04/10/18 04/10/18 00:38 00:55 01:13 WBC Hct MCHC Plt Count Lymph % (Auto) Williamson % (Auto) Lymph # Williamson # Seg Neutrophils % Seg Neutrophils # POC ABG pH POC ABG pCO2 POC ABG pO2 Sodium Potassium Chloride BUN Glucose POC Glucose 117 H 121 H Hemoglobin A1c Lactic Acid 2.10 H* Calcium Phosphorus Magnesium Total Bilirubin AST Total Creatine Kinase CK-MB (CK-2) C-Reactive Protein Total Protein Albumin 04/10/18 04/10/18 04/10/18 02:10 03:51 04:07 WBC 14.0 H Hct MCHC Plt Count Lymph % (Auto) 7.5 L Williamson % (Auto) Lymph # 1.1 L Williamson # 1.0 H Seg Neutrophils % 84.9 H Seg Neutrophils # 11.8 H POC ABG pH POC ABG pCO2 POC ABG pO2 Sodium Potassium Chloride BUN Glucose POC Glucose 153 H 158 H Hemoglobin A1c Lactic Acid Calcium Phosphorus Magnesium Total Bilirubin AST Total Creatine Kinase CK-MB (CK-2) C-Reactive Protein Total Protein Albumin 04/10/18 04/10/18 04/10/18 04:07 06:56 09:48 WBC Hct MCHC Plt Count Lymph % (Auto) Williamson % (Auto) Lymph # Williamson # Seg Neutrophils % Seg Neutrophils # POC ABG pH POC ABG pCO2 POC ABG pO2 Sodium 130 L Potassium Chloride 93.4 L BUN Glucose 180 H POC Glucose 251 H 245 H Hemoglobin A1c Lactic Acid Calcium 7.9 L D Phosphorus Magnesium Total Bilirubin AST Total Creatine Kinase 7857 H CK-MB (CK-2) 34.3 H C-Reactive Protein Total Protein Albumin 04/10/18 04/10/18 04/10/18 10:37 12:44 17:31 WBC Hct MCHC Plt Count Lymph % (Auto) Williamson % (Auto) Lymph # Williamson # Seg Neutrophils % Seg Neutrophils # POC ABG pH POC ABG pCO2 45.6 H POC ABG pO2 374 H Sodium Potassium Chloride BUN Glucose POC Glucose 348 H Hemoglobin A1c Lactic Acid Calcium Phosphorus Magnesium Total Bilirubin AST Total Creatine Kinase 9880 H CK-MB (CK-2) 30.0 H C-Reactive Protein Total Protein Albumin 04/10/18 04/11/18 04/11/18 23:36 03:52 04:28 WBC 12.2 H Hct MCHC Plt Count 132 L Lymph % (Auto) Williamson % (Auto) 10.2 H Lymph # Williamson # 1.2 H Seg Neutrophils % 75.1 H Seg Neutrophils # 9.1 H POC ABG pH 7.495 H POC ABG pCO2 32.4 L POC ABG pO2 Sodium Potassium Chloride BUN Glucose POC Glucose 148 H Hemoglobin A1c Lactic Acid Calcium Phosphorus Magnesium Total Bilirubin AST Total Creatine Kinase CK-MB (CK-2) C-Reactive Protein Total Protein Albumin 04/11/18 04/11/18 04/11/18 04:28 04:28 05:22 WBC Hct MCHC Plt Count Lymph % (Auto) Williamson % (Auto) Lymph # Williamson # Seg Neutrophils % Seg Neutrophils # POC ABG pH POC ABG pCO2 POC ABG pO2 Sodium 133 L Potassium 3.5 L Chloride 95.1 L BUN 7 L Glucose 206 H POC Glucose 178 H Hemoglobin A1c 6.4 H Lactic Acid Calcium 7.7 L Phosphorus 1.80 L Magnesium 1.50 L Total Bilirubin 4.10 H AST 168 H Total Creatine Kinase 9352 H CK-MB (CK-2) C-Reactive Protein Total Protein Albumin 3.4 L 04/11/18 04/11/18 04/11/18 11:28 13:43 17:30 WBC Hct MCHC Plt Count Lymph % (Auto) Williamson % (Auto) Lymph # Williamson # Seg Neutrophils % Seg Neutrophils # POC ABG pH POC ABG pCO2 POC ABG pO2 Sodium Potassium Chloride BUN Glucose POC Glucose 196 H 142 H Hemoglobin A1c Lactic Acid Calcium Phosphorus Magnesium Total Bilirubin AST Total Creatine Kinase CK-MB (CK-2) C-Reactive Protein 7.20 H Total Protein Albumin 04/11/18 04/11/18 04/12/18 18:59 23:23 04:00 WBC Hct MCHC Plt Count Lymph % (Auto) Williamson % (Auto) Lymph # Williamson # Seg Neutrophils % Seg Neutrophils # POC ABG pH 7.489 H POC ABG pCO2 34.5 L POC ABG pO2 Sodium Potassium 3.3 L Chloride BUN 6 L Glucose 151 H POC Glucose 129 H Hemoglobin A1c Lactic Acid Calcium 7.3 L Phosphorus 2.00 L Magnesium Total Bilirubin 2.80 H AST 121 H Total Creatine Kinase 5177 H CK-MB (CK-2) C-Reactive Protein Total Protein 5.9 L Albumin 3.1 L 04/12/18 04/12/18 04/12/18 04:00 04:04 05:21 WBC Hct 34.9 L MCHC 35 H Plt Count 128 L Lymph % (Auto) Williamson % (Auto) 10.6 H Lymph # Williamson # 0.9 H Seg Neutrophils % Seg Neutrophils # POC ABG pH 7.454 H POC ABG pCO2 POC ABG pO2 Sodium Potassium Chloride BUN Glucose POC Glucose 136 H Hemoglobin A1c Lactic Acid Calcium Phosphorus Magnesium Total Bilirubin AST Total Creatine Kinase CK-MB (CK-2) C-Reactive Protein Total Protein Albumin 04/12/18 04/13/18 04/13/18 11:23 00:21 04:57 WBC Hct MCHC Plt Count Lymph % (Auto) Williamson % (Auto) Lymph # Williamson # Seg Neutrophils % Seg Neutrophils # POC ABG pH POC ABG pCO2 34.7 L POC ABG pO2 125 H Sodium Potassium Chloride BUN Glucose POC Glucose 166 H 143 H Hemoglobin A1c Lactic Acid Calcium Phosphorus Magnesium Total Bilirubin AST Total Creatine Kinase CK-MB (CK-2) C-Reactive Protein Total Protein Albumin 04/13/18 04/13/18 04/13/18 05:02 05:02 12:16 WBC Hct MCHC Plt Count Lymph % (Auto) Williamson % (Auto) Lymph # Williamson # Seg Neutrophils % Seg Neutrophils # POC ABG pH POC ABG pCO2 POC ABG pO2 Sodium Potassium Chloride BUN Glucose POC Glucose 161 H 170 H Hemoglobin A1c Lactic Acid Calcium Phosphorus Magnesium Total Bilirubin AST Total Creatine Kinase 3456 H CK-MB (CK-2) C-Reactive Protein Total Protein Albumin 04/13/18 04/13/18 04/14/18 18:52 23:09 04:35 WBC Hct MCHC Plt Count Lymph % (Auto) Williamson % (Auto) Lymph # Williamson # Seg Neutrophils % Seg Neutrophils # POC ABG pH 7.467 H POC ABG pCO2 POC ABG pO2 Sodium Potassium Chloride BUN Glucose POC Glucose 196 H 219 H Hemoglobin A1c Lactic Acid Calcium Phosphorus Magnesium Total Bilirubin AST Total Creatine Kinase CK-MB (CK-2) C-Reactive Protein Total Protein Albumin 04/14/18 04/14/18 04/14/18 05:00 05:26 11:20 WBC Hct MCHC Plt Count Lymph % (Auto) Williamson % (Auto) Lymph # Williamson # Seg Neutrophils % Seg Neutrophils # POC ABG pH POC ABG pCO2 POC ABG pO2 Sodium Potassium Chloride BUN Glucose POC Glucose 249 H 260 H Hemoglobin A1c Lactic Acid Calcium Phosphorus Magnesium Total Bilirubin AST Total Creatine Kinase 2247 H CK-MB (CK-2) C-Reactive Protein Total Protein Albumin 04/14/18 04/14/18 04/14/18 17:04 17:51 23:53 WBC Hct MCHC Plt Count Lymph % (Auto) Williamson % (Auto) Lymph # Williamson # Seg Neutrophils % Seg Neutrophils # POC ABG pH POC ABG pCO2 POC ABG pO2 79 L Sodium Potassium Chloride BUN Glucose POC Glucose 284 H 203 H Hemoglobin A1c Lactic Acid Calcium Phosphorus Magnesium Total Bilirubin AST Total Creatine Kinase CK-MB (CK-2) C-Reactive Protein Total Protein Albumin 04/15/18 04/15/18 04:24 05:26 WBC Hct MCHC Plt Count Lymph % (Auto) Williamson % (Auto) Lymph # Williamson # Seg Neutrophils % Seg Neutrophils # POC ABG pH POC ABG pCO2 45.4 H POC ABG pO2 78 L Sodium Potassium Chloride BUN Glucose POC Glucose 194 H Hemoglobin A1c Lactic Acid Calcium Phosphorus Magnesium Total Bilirubin AST Total Creatine Kinase CK-MB (CK-2) C-Reactive Protein Total Protein Albumin Allied health notes reviewed: nursing
--- NOTE | 2018-04-15 20:48 | Ultrasound Report ---
FINAL REPORT PROCEDURE: US ABDOMEN LIMITED TECHNIQUE: Real-time sonography was performed of the right upper quadrant with image documentation. CPT 29366 HISTORY: eval for mass, cholecystitis COMPARISON: No prior studies are available for comparison. FINDINGS: Pancreas is not well visualized due to bowel gas. Liver demonstrates normal echotexture without focal lesions. Gallbladder is not visualized. Common duct is 7 millimeters in caliber. Right kidney measur es 9.9 x 4.8 x 4.2 centimeters demonstrating normal echotexture without calculi or hydronephrosis. Pr oximal abdominal aorta measures 2.3 centimeters in diameter.. IMPRESSION: Gallbladder is not visualized which is most likely secondary to prior cholecystectomy. Correlate with clinical history. Otherwise unremarkable study
[2018-04-15] MEDS: PEPCID PO SCH (21:38)
[2018-04-15] MEDS: KEPPRA PO SCH (21:38)
[2018-04-15] MEDS: SODIUM CHLORIDE FLUSH SYRINGE 10 ML IV SCH (21:39)
[2018-04-16] MEDS: HumaLOG SUB-Q SCH ×4 (00:28→19:14)
--- NOTE | 2018-04-16 02:56 | XRay Report ---
FINAL REPORT PROCEDURE: XR CHEST 1V AP TECHNIQUE: Chest radiograph anteroposterior view. CPT 56304 HISTORY: follow up respiratory failure COMPARISON: 04/15/2018 FINDINGS: Heart: Normal. Mediastinum/Vessels: Normal. Lungs/Pleural space: Lungs are expanded. There are no infiltrates, effusions or pneumothoraces. Bony thorax: No acute osseous abnormality. Life support devices: The endotracheal tube is in the mid trachea. The NG tube is in the stomach. The re is a left-sided PICC line. The tip is in the superior vena cava.. IMPRESSION: The heart size is normal.. Lungs are expanded. There are no infiltrates, effusions or pneumothoraces. The endotracheal tube is in the mid trachea. The NG tube is in the stomach. There is a left-sided PIC C line. The tip is in the superior vena cava..
[2018-04-16] MEDS: FLAGYL 500 MG/100 ML 500 MG/100 ML BAG IV SCH ×5 (05:17→21:53)
[2018-04-16] MEDS: DUONEB *Not for PRN Use IH SCH ×3 (07:44→19:42)
--- NOTE | 2018-04-16 08:42 | Progress Note ---
Assessment and Plan Cultures: Blood culture 04/09/2018 no growth so far Urine culture 04/10/2018 no growth so far Sputum culture 04/10/2018 upper respiratory mikayla. Assessment: 78 y/o male with history of hypertension, diabetes, coronary artery disease; admitted on 04/09/2018 due to be found unresponsive at home when the family has not heard from him. EMS was called, his blood sugar was undetectable: 1) Sepsis: leukocytosis and fever resolved. Etiology most likely aspiration pneumonia. Blood culture 04/11/2018 no growth so far. UA neg. CRP=7 2) Presumed aspiration versus CAP: CXR focal infiltrate RLL. Sputum culture 04/10/2018 upper respiratory mikayla. Influenza neg. 3) Acute respiratory failure: from encephalopathy/pneumonia 4) Generalized seizures: from hypoglycemia 5) Elevated LFTs: from sepsis or other etiologies? rhabdo, better. Viral hepatitis serology all negative. US no visualized GB 6) Acute encephalopathy: post seizures/ischemia. 7) Rhabdomyolysis Recommendations: - follow-up blood cultures - continue ceftriaxone D5 of 5, azithromycin D5 of 5 and flagyl D3 of 5 to cover CAP versus aspiration pneumonia - monitor mentation Will follow. Tiffanie Crowe MD Infectious Diseases Manager [facility] ([facility]) M [phone] O [phone] Subjective Date of service: 04/16/18 Principal diagnosis: Ac Hypoxemic Resp Failure; Seizures; Encephalopathy; DM II; Rhabdomyolysis Interval history: Remains intubated on SBT now toleraring well, on sedation, open eyes, no fever x 48h ROS: unable to obtain Objective - Exam Narrative Exam: General appearance: opne eyes, intubated on SBT 30% in NAD Eyes: anicteric sclerae, moist conjunctivae; no lid-lag; PERRLA HENT: Atraumatic; oropharynx ETT/NGT Neck: Trachea midline; supple, no thyromegaly or lymphadenopathy Lungs: griffin coarse BS CV:bradycardic Abdomen: Soft, non-tender; no masses or hepatosplenomegaly Extremities: No peripheral edema or extremity lymphadenopathy Skin: Normal temperature, turgor and texture; no rash, ulcers or subcutaneous nodules Psych: alert. Neuro:alert Condom cath - Constitutional Vitals: Vital Signs Temp Pulse Resp BP Pulse Ox 98.9 F 62 12 97/44 100 04/16/18 03:07 04/16/18 07:53 04/16/18 07:53 04/16/18 07:41 04/16/18 07:41 Temperature -Last 24 Hours Temperature 98.9 F Temperature 99.5 F Temperature 99 F Temperature 98.9 F - Labs CBC & Chem 7: 04/12/18 04:00 04/12/18 04:00 Labs: Abnormal lab results 04/15/18 04/15/18 04/15/18 Range/Units 12:56 17:46 23:57 POC ABG pCO2 (35-45) POC Glucose 200 H 118 H 204 H (70-105) 04/16/18 04/16/18 Range/Units 05:08 05:16 POC ABG pCO2 46.7 H (35-45) POC Glucose 221 H (70-105)
[2018-04-16] MEDS: SODIUM CHLORIDE FLUSH SYRINGE 10 ML IV SCH ×3 (10:27→21:54)
[2018-04-16] MEDS: ZITHROMAX 500 MG in NACL 0.9% 250ML 250 ML IV SCH (10:27)
[2018-04-16] MEDS: PEPCID PO SCH ×2 (10:28→21:15)
[2018-04-16] MEDS: KEPPRA PO SCH ×2 (10:28→21:15)
[2018-04-16] MEDS: LOVENOX SUB-Q SCH ×2 (10:30→13:32)
[2018-04-16] MEDS: ROCEPHIN/NS 2 GM/100 ML 2 GM/100 ML BAG IV SCH (10:32)
--- NOTE | 2018-04-16 13:10 | Progress Note ---
Assessment and Plan Acute Hypoxemic Respiratory Failure New Onset Seizures (presumed secondary to Hypoglycemia) Acute Encephalopathy (Toxic -Metabolic) Diabetes Type II Rhabdomyolysis Obesity HTN Possible JOE Hyponatremia (mild) Hypomagnesemia leucocytosis (AMS remains rate limiting step to safe extubation at this point) - continue PSV trials with Psupp to 8 cm H2O as pulling large volumes and having apneic spells during SBT - keep set rate at 10/min for now - continue daily SBT's as tolerated - anti-infective's adjusted by ID and input appreciated - CRP equivocally elevated but lactate WNL - continue to wean supplemental oxygen to keep O2 sats > 90% - continue bronchodilators with pulmonary hygiene per RT - VAP bundle addressed - continue daily SAT's - titrate sedatives for RASS 0 to -1 (on hold re: AMS) - neurology evaluation ongoing - PICC line placed - GI & VTE prophylaxis - trend CpK level - continue IVF fluids re: Rhabdo - replace electrolytes - continue AED's (Keppra) - continue pertinent home med's - continue enteral nutrition as tolerated - continue accuchecks q6h with glycemic control per SSI for target BG 140-180 mg/dL - will likely need outpatient PSG to evaluate JOE - continue other care per attending / other oncology consultant's ....... care plan discussed at length with his eldest son in the room and all his questions were answered CODE STATUS: FULL CODE The high probability of a clinically significant, sudden or life-threatening deterioration of the [cardiac, neurology] system(s) required my full and direct attention, intervention and personal management. The aggregate critical care time was [34] minutes without overlap. Time includes spent on; [x] Data Review and interpretation [x] Patient assessment and monitoring of vital signs [x] Documentation [x] Medication orders and management Subjective Date of service: 04/16/18 Principal diagnosis: Ac Hypoxemic Resp Failure; Seizures; Encephalopathy; DM II; Rhabdomyolysis Interval history: Patient is seen today for: Acute Hypoxemic Respiratory Failure; New Onset Seizures (presumed secondary to Hypoglycemia); Acute Encephalopathy (Toxic - Metabolic); Diabetes Type II; Rhabdomyolysis Seen and examined at bedside; 24hour events reviewed; nursing and respiratory care staff consulted; no adverse overnight events reported to me; resting peacefully in bed; AMS is persistent; tolerating PSV at 8/6 now and ABG pending; no emesis or overt aspiration; Objective Vital Signs - 12hr 04/16/18 04/16/18 04/16/18 02:01 03:00 03:07 Temperature 98.9 F Pulse Rate 65 60 Pulse Rate [ Bilateral Throughout] Pulse Rate [ From Monitor] Respiratory 12 12 Rate Respiratory Rate [Bilateral Throughout] Blood Pressure 165/75 116/62 O2 Sat by Pulse 100 100 Oximetry 04/16/18 04/16/18 04/16/18 04:00 05:01 05:20 Temperature Pulse Rate 52 L 63 52 L Pulse Rate [ Bilateral Throughout] Pulse Rate [ 65 From Monitor] Respiratory 12 12 Rate Respiratory Rate [Bilateral Throughout] Blood Pressure 114/52 151/67 114/52 O2 Sat by Pulse 100 100 100 Oximetry 04/16/18 04/16/18 04/16/18 06:01 07:00 07:38 Temperature Pulse Rate 56 L 52 L 61 Pulse Rate [ Bilateral Throughout] Pulse Rate [ From Monitor] Respiratory 12 12 Rate Respiratory Rate [Bilateral Throughout] Blood Pressure 120/53 97/44 97/44 O2 Sat by Pulse 100 100 100 Oximetry 04/16/18 04/16/18 04/16/18 07:41 07:44 07:53 Temperature Pulse Rate 63 Pulse Rate [ 61 62 Bilateral Throughout] Pulse Rate [ From Monitor] Respiratory 15 Rate Respiratory 14 12 Rate [Bilateral Throughout] Blood Pressure 97/44 O2 Sat by Pulse 100 Oximetry 04/16/18 13:05 Temperature Pulse Rate 74 Pulse Rate [ Bilateral Throughout] Pulse Rate [ From Monitor] Respiratory 15 Rate Respiratory Rate [Bilateral Throughout] Blood Pressure 151/74 O2 Sat by Pulse 100 Oximetry Constitutional: no acute distress, other (Elderly looking AAM, normocephalic and atraumatic with mildly increased respiratory effort on MVS) Eyes: non-icteric ENT: oropharynx moist, other (ETT 23 cm STEPHANIE) Neck: supple, no lymphadenopathy, no JVD, other (large neck circumference) Effort: mildly labored Ascultation: Bilateral: diminished breath sounds, rhonchi Percussion: Bilateral: not dull Cardiovascular: regular rate and rhythm Gastrointestinal: normoactive bowel sounds, soft, non-tender, non-distended, ot her (protuberant) Integumentary: normal Extremities: no cyanosis, no edema, pulses normal, no ischemia or petechiae Neurologic: non-focal exam (grossly), unable to assess Psychiatric: other (unable to assess) CBC and BMP: 04/12/18 04:00 04/12/18 04:00 ABG, PT/INR, D-dimer: ABG POC ABG pH 7.427 (7.35-7.45) 04/16/18 05:16 POC ABG pCO2 46.7 (35-45) H 04/16/18 05:16 POC ABG pO2 92 (80-105) 04/16/18 05:16 POC ABG HCO3 30.8 04/16/18 05:16 POC ABG Total CO2 32 04/16/18 05:16 POC ABG O2 Sat 97 04/16/18 05:16 Abnormal lab findings: Abnormal Labs 04/09/18 04/09/18 04/09/18 23:16 23:16 23:16 WBC 13.6 H Hct MCHC Plt Count Lymph % (Auto) 9.4 L Tate % (Auto) Lymph # Tate # Seg Neutrophils % 87.3 H Seg Neutrophils # 11.9 H POC ABG pH POC ABG pCO2 POC ABG pO2 Sodium 132 L Potassium Chloride 92.7 L BUN Glucose 143 H POC Glucose Hemoglobin A1c Lactic Acid 2.10 H* Calcium Phosphorus Magnesium Total Bilirubin 2.20 H AST 107 H Total Creatine Kinase CK-MB (CK-2) C-Reactive Protein Total Protein Albumin 04/10/18 04/10/18 04/10/18 00:38 00:55 01:13 WBC Hct MCHC Plt Count Lymph % (Auto) Tate % (Auto) Lymph # Tate # Seg Neutrophils % Seg Neutrophils # POC ABG pH POC ABG pCO2 POC ABG pO2 Sodium Potassium Chloride BUN Glucose POC Glucose 117 H 121 H Hemoglobin A1c Lactic Acid 2.10 H* Calcium Phosphorus Magnesium Total Bilirubin AST Total Creatine Kinase CK-MB (CK-2) C-Reactive Protein Total Protein Albumin 04/10/18 04/10/18 04/10/18 02:10 03:51 04:07 WBC 14.0 H Hct MCHC Plt Count Lymph % (Auto) 7.5 L Tate % (Auto) Lymph # 1.1 L Tate # 1.0 H Seg Neutrophils % 84.9 H Seg Neutrophils # 11.8 H POC ABG pH POC ABG pCO2 POC ABG pO2 Sodium Potassium Chloride BUN Glucose POC Glucose 153 H 158 H Hemoglobin A1c Lactic Acid Calcium Phosphorus Magnesium Total Bilirubin AST Total Creatine Kinase CK-MB (CK-2) C-Reactive Protein Total Protein Albumin 04/10/18 04/10/18 04/10/18 04:07 06:56 09:48 WBC Hct MCHC Plt Count Lymph % (Auto) Tate % (Auto) Lymph # Tate # Seg Neutrophils % Seg Neutrophils # POC ABG pH POC ABG pCO2 POC ABG pO2 Sodium 130 L Potassium Chloride 93.4 L BUN Glucose 180 H POC Glucose 251 H 245 H Hemoglobin A1c Lactic Acid Calcium 7.9 L D Phosphorus Magnesium Total Bilirubin AST Total Creatine Kinase 7857 H CK-MB (CK-2) 34.3 H C-Reactive Protein Total Protein Albumin 04/10/18 04/10/18 04/10/18 10:37 12:44 17:31 WBC Hct MCHC Plt Count Lymph % (Auto) Tate % (Auto) Lymph # Tate # Seg Neutrophils % Seg Neutrophils # POC ABG pH POC ABG pCO2 45.6 H POC ABG pO2 374 H Sodium Potassium Chloride BUN Glucose POC Glucose 348 H Hemoglobin A1c Lactic Acid Calcium Phosphorus Magnesium Total Bilirubin AST Total Creatine Kinase 9880 H CK-MB (CK-2) 30.0 H C-Reactive Protein Total Protein Albumin 04/10/18 04/11/18 04/11/18 23:36 03:52 04:28 WBC 12.2 H Hct MCHC Plt Count 132 L Lymph % (Auto) Tate % (Auto) 10.2 H Lymph # Tate # 1.2 H Seg Neutrophils % 75.1 H Seg Neutrophils # 9.1 H POC ABG pH 7.495 H POC ABG pCO2 32.4 L POC ABG pO2 Sodium Potassium Chloride BUN Glucose POC Glucose 148 H Hemoglobin A1c Lactic Acid Calcium Phosphorus Magnesium Total Bilirubin AST Total Creatine Kinase CK-MB (CK-2) C-Reactive Protein Total Protein Albumin 04/11/18 04/11/18 04/11/18 04:28 04:28 05:22 WBC Hct MCHC Plt Count Lymph % (Auto) Tate % (Auto) Lymph # Tate # Seg Neutrophils % Seg Neutrophils # POC ABG pH POC ABG pCO2 POC ABG pO2 Sodium 133 L Potassium 3.5 L Chloride 95.1 L BUN 7 L Glucose 206 H POC Glucose 178 H Hemoglobin A1c 6.4 H Lactic Acid Calcium 7.7 L Phosphorus 1.80 L Magnesium 1.50 L Total Bilirubin 4.10 H AST 168 H Total Creatine Kinase 9352 H CK-MB (CK-2) C-Reactive Protein Total Protein Albumin 3.4 L 04/11/18 04/11/18 04/11/18 11:28 13:43 17:30 WBC Hct MCHC Plt Count Lymph % (Auto) Tate % (Auto) Lymph # Tate # Seg Neutrophils % Seg Neutrophils # POC ABG pH POC ABG pCO2 POC ABG pO2 Sodium Potassium Chloride BUN Glucose POC Glucose 196 H 142 H Hemoglobin A1c Lactic Acid Calcium Phosphorus Magnesium Total Bilirubin AST Total Creatine Kinase CK-MB (CK-2) C-Reactive Protein 7.20 H Total Protein Albumin 04/11/18 04/11/18 04/12/18 18:59 23:23 04:00 WBC Hct MCHC Plt Count Lymph % (Auto) Tate % (Auto) Lymph # Tate # Seg Neutrophils % Seg Neutrophils # POC ABG pH 7.489 H POC ABG pCO2 34.5 L POC ABG pO2 Sodium Potassium 3.3 L Chloride BUN 6 L Glucose 151 H POC Glucose 129 H Hemoglobin A1c Lactic Acid Calcium 7.3 L Phosphorus 2.00 L Magnesium Total Bilirubin 2.80 H AST 121 H Total Creatine Kinase 5177 H CK-MB (CK-2) C-Reactive Protein Total Protein 5.9 L Albumin 3.1 L 04/12/18 04/12/18 04/12/18 04:00 04:04 05:21 WBC Hct 34.9 L MCHC 35 H Plt Count 128 L Lymph % (Auto) Tate % (Auto) 10.6 H Lymph # Tate # 0.9 H Seg Neutrophils % Seg Neutrophils # POC ABG pH 7.454 H POC ABG pCO2 POC ABG pO2 Sodium Potassium Chloride BUN Glucose POC Glucose 136 H Hemoglobin A1c Lactic Acid Calcium Phosphorus Magnesium Total Bilirubin AST Total Creatine Kinase CK-MB (CK-2) C-Reactive Protein Total Protein Albumin 04/12/18 04/13/18 04/13/18 11:23 00:21 04:57 WBC Hct MCHC Plt Count Lymph % (Auto) Tate % (Auto) Lymph # Tate # Seg Neutrophils % Seg Neutrophils # POC ABG pH POC ABG pCO2 34.7 L POC ABG pO2 125 H Sodium Potassium Chloride BUN Glucose POC Glucose 166 H 143 H Hemoglobin A1c Lactic Acid Calcium Phosphorus Magnesium Total Bilirubin AST Total Creatine Kinase CK-MB (CK-2) C-Reactive Protein Total Protein Albumin 04/13/18 04/13/18 04/13/18 05:02 05:02 12:16 WBC Hct MCHC Plt Count Lymph % (Auto) Tate % (Auto) Lymph # Tate # Seg Neutrophils % Seg Neutrophils # POC ABG pH POC ABG pCO2 POC ABG pO2 Sodium Potassium Chloride BUN Glucose POC Glucose 161 H 170 H Hemoglobin A1c Lactic Acid Calcium Phosphorus Magnesium Total Bilirubin AST Total Creatine Kinase 3456 H CK-MB (CK-2) C-Reactive Protein Total Protein Albumin 04/13/18 04/13/18 04/14/18 18:52 23:09 04:35 WBC Hct MCHC Plt Count Lymph % (Auto) Tate % (Auto) Lymph # Tate # Seg Neutrophils % Seg Neutrophils # POC ABG pH 7.467 H POC ABG pCO2 POC ABG pO2 Sodium Potassium Chloride BUN Glucose POC Glucose 196 H 219 H Hemoglobin A1c Lactic Acid Calcium Phosphorus Magnesium Total Bilirubin AST Total Creatine Kinase CK-MB (CK-2) C-Reactive Protein Total Protein Albumin 04/14/18 04/14/18 04/14/18 05:00 05:26 11:20 WBC Hct MCHC Plt Count Lymph % (Auto) Tate % (Auto) Lymph # Tate # Seg Neutrophils % Seg Neutrophils # POC ABG pH POC ABG pCO2 POC ABG pO2 Sodium Potassium Chloride BUN Glucose POC Glucose 249 H 260 H Hemoglobin A1c Lactic Acid Calcium Phosphorus Magnesium Total Bilirubin AST Total Creatine Kinase 2247 H CK-MB (CK-2) C-Reactive Protein Total Protein Albumin 04/14/18 04/14/18 04/14/18 17:04 17:51 23:53 WBC Hct MCHC Plt Count Lymph % (Auto) Tate % (Auto) Lymph # Tate # Seg Neutrophils % Seg Neutrophils # POC ABG pH POC ABG pCO2 POC ABG pO2 79 L Sodium Potassium Chloride BUN Glucose POC Glucose 284 H 203 H Hemoglobin A1c Lactic Acid Calcium Phosphorus Magnesium Total Bilirubin AST Total Creatine Kinase CK-MB (CK-2) C-Reactive Protein Total Protein Albumin 04/15/18 04/15/18 04/15/18 04:24 05:26 12:56 WBC Hct MCHC Plt Count Lymph % (Auto) Tate % (Auto) Lymph # Tate # Seg Neutrophils % Seg Neutrophils # POC ABG pH POC ABG pCO2 45.4 H POC ABG pO2 78 L Sodium Potassium Chloride BUN Glucose POC Glucose 194 H 200 H Hemoglobin A1c Lactic Acid Calcium Phosphorus Magnesium Total Bilirubin AST Total Creatine Kinase CK-MB (CK-2) C-Reactive Protein Total Protein Albumin 04/15/18 04/15/18 04/16/18 17:46 23:57 05:08 WBC Hct MCHC Plt Count Lymph % (Auto) Tate % (Auto) Lymph # Tate # Seg Neutrophils % Seg Neutrophils # POC ABG pH POC ABG pCO2 POC ABG pO2 Sodium Potassium Chloride BUN Glucose POC Glucose 118 H 204 H 221 H Hemoglobin A1c Lactic Acid Calcium Phosphorus Magnesium Total Bilirubin AST Total Creatine Kinase CK-MB (CK-2) C-Reactive Protein Total Protein Albumin 04/16/18 05:16 WBC Hct MCHC Plt Count Lymph % (Auto) Tate % (Auto) Lymph # Tate # Seg Neutrophils % Seg Neutrophils # POC ABG pH POC ABG pCO2 46.7 H POC ABG pO2 Sodium Potassium Chloride BUN Glucose POC Glucose Hemoglobin A1c Lactic Acid Calcium Phosphorus Magnesium Total Bilirubin AST Total Creatine Kinase CK-MB (CK-2) C-Reactive Protein Total Protein Albumin Allied health notes reviewed: nursing
[2018-04-16] MEDS: LANTUS SUB-Q SCH (13:48)
[2018-04-17] MEDS: HumaLOG SUB-Q SCH ×5 (00:11→23:29)
--- NOTE | 2018-04-17 02:42 | XRay Report ---
FINAL REPORT PROCEDURE: XR CHEST 1V AP TECHNIQUE: Chest radiograph anteroposterior view. CPT 41906 HISTORY: follow up respiratory failure COMPARISON: 04/16/2018 FINDINGS: Heart: Normal. Mediastinum/Vessels: Normal. Lungs/Pleural space: Normal. Bony thorax: No acute osseous abnormality. Life support devices: The endotracheal tube is in the mid trachea. NG tube is in the stomach. There i s a left-sided PICC line. The tip is in the superior vena cava.. IMPRESSION: No acute cardiopulmonary abnormality. The endotracheal tube is in the mid trachea. NG tube is in the stomach. There is a left-sided PICC li ne. The tip is in the superior vena cava..
[2018-04-17] MEDS: FLAGYL 500 MG/100 ML 500 MG/100 ML BAG IV SCH ×3 (06:02→21:54)
[2018-04-17] MEDS: DUONEB *Not for PRN Use IH SCH ×3 (08:56→20:39)
[2018-04-17] MEDS ORDERED: SODIUM BICARBONATE FEEDTUBE PRN (09:07)
[2018-04-17] MEDS ORDERED: PANCREAZE DR 10,500 UNIT FEEDTUBE PRN (09:07)
[2018-04-17] MEDS ORDERED: SIMPLE SYRUP FEEDTUBE PRN ×2 (09:07)
[2018-04-17] MEDS: KEPPRA PO SCH ×2 (10:01→21:55)
[2018-04-17] MEDS: LANTUS SUB-Q SCH (10:01)
[2018-04-17] MEDS: LOVENOX SUB-Q SCH (10:02)
[2018-04-17] MEDS: PEPCID PO SCH ×2 (10:02→21:55)
--- NOTE | 2018-04-17 14:17 | Progress Note ---
Assessment and Plan Acute Hypoxemic Respiratory Failure New Onset Seizures (presumed secondary to Hypoglycemia) Acute Encephalopathy (Toxic -Metabolic) Diabetes Type II Rhabdomyolysis Obesity HTN Possible JOE Hyponatremia (mild) Hypomagnesemia leucocytosis (AMS remains rate limiting step to safe extubation at this point) - continue PSV trials with Psupp to 8 cm H2O as pulling large volumes and having apneic spells during SBT - keep set rate at 10/min for now - continue daily SBT's as tolerated - anti-infective's adjusted by ID and input appreciated - CRP equivocally elevated but lactate WNL - continue to wean supplemental oxygen to keep O2 sats > 90% - continue bronchodilators with pulmonary hygiene per RT - VAP bundle addressed - continue daily SAT's - titrate sedatives for RASS 0 to -1 (on hold re: AMS) - neurology evaluation ongoing - PICC line placed - GI & VTE prophylaxis - trend CpK level - continue IVF fluids re: Rhabdo - replace electrolytes - continue AED's (Keppra) - continue pertinent home med's - continue enteral nutrition as tolerated - continue accuchecks q6h with glycemic control per SSI for target BG 140-180 mg/dL - will likely need outpatient PSG to evaluate JOE - continue other care per attending / other hospice consultant's ....... care plan discussed at length with his eldest son in the room and all his questions were answered; he will benefit from a Tracheostomy with AMS issues currently CODE STATUS: FULL CODE The high probability of a clinically significant, sudden or life-threatening deterioration of the [cardiac, neurology] system(s) required my full and direct attention, intervention and personal management. The aggregate critical care time was [35] minutes without overlap. Time includes spent on; [x] Data Review and interpretation [x] Patient assessment and monitoring of vital signs [x] Documentation [x] Medication orders and management Subjective Date of service: 04/17/18 Principal diagnosis: Ac Hypoxemic Resp Failure; Seizures; Encephalopathy; DM II; Rhabdomyolysis Interval history: Patient is seen today for: Acute Hypoxemic Respiratory Failure; New Onset Seizures (presumed secondary to Hypoglycemia); Acute Encephalopathy (Toxic -M etabolic); Diabetes Type II; Rhabdomyolysis Seen and examined at bedside; 24hour events reviewed; nursing and respiratory care staff consulted; no adverse overnight events reported to me; resting peacefully in bed; AMS is persistent; discussed care plan with Son and they will decide on tracheostomy; no emesis or overt aspiration Objective Vital Signs - 12hr 04/17/18 04/17/18 04/17/18 02:54 03:01 04:00 Temperature 99.7 F H Pulse Rate 68 65 Pulse Rate [ Bilateral Throughout] Pulse Rate [ 88 From Monitor] Respiratory 12 21 Rate Respiratory Rate [Bilateral Throughout] Blood Pressure 155/74 115/60 O2 Sat by Pulse 100 100 100 Oximetry 04/17/18 04/17/18 04/17/18 04:01 05:00 06:00 Temperature Pulse Rate 92 H 77 67 Pulse Rate [ Bilateral Throughout] Pulse Rate [ From Monitor] Respiratory 13 12 15 Rate Respiratory Rate [Bilateral Throughout] Blood Pressure 136/77 155/86 152/79 O2 Sat by Pulse 100 100 100 Oximetry 04/17/18 04/17/18 04/17/18 06:25 07:00 08:00 Temperature Pulse Rate 63 79 92 H Pulse Rate [ Bilateral Throughout] Pulse Rate [ From Monitor] Respiratory 16 18 20 Rate Respiratory Rate [Bilateral Throughout] Blood Pressure 152/79 138/81 132/87 O2 Sat by Pulse 100 100 100 Oximetry 04/17/18 04/17/18 04/17/18 08:41 08:57 09:01 Temperature 98 F Pulse Rate 87 86 Pulse Rate [ 93 H Bilateral Throughout] Pulse Rate [ From Monitor] Respiratory 19 18 Rate Respiratory 21 Rate [Bilateral Throughout] Blood Pressure 132/87 172/77 O2 Sat by Pulse 100 100 Oximetry 04/17/18 04/17/18 04/17/18 09:41 10:00 11:01 Temperature Pulse Rate 106 H 85 Pulse Rate [ 100 H Bilateral Throughout] Pulse Rate [ From Monitor] Respiratory 15 15 Rate Respiratory 16 Rate [Bilateral Throughout] Blood Pressure 135/90 137/80 O2 Sat by Pulse 100 100 Oximetry 04/17/18 04/17/18 04/17/18 11:30 12:01 13:54 Temperature Pulse Rate 84 91 H 95 H Pulse Rate [ 96 H Bilateral Throughout] Pulse Rate [ From Monitor] Respiratory 18 23 23 Rate Respiratory 15 Rate [Bilateral Throughout] Blood Pressure 137/80 161/91 154/81 O2 Sat by Pulse 10 L 100 100 Oximetry Constitutional: no acute distress, other (Elderly looking AAM, normocephalic and atraumatic with mildly increased respiratory effort on MVS) Eyes: non-icteric ENT: oropharynx moist, other (ETT 23 cm STEPHANIE) Neck: supple, no lymphadenopathy, no JVD, other (large neck circumference) Effort: mildly labored Ascultation: Bilateral: diminished breath sounds, rhonchi Percussion: Bilateral: not dull Cardiovascular: regular rate and rhythm Gastrointestinal: normoactive bowel sounds, soft, non-tender, non-distended, other (protuberant) Integumentary: normal Extremities: no cyanosis, no edema, pulses normal, no ischemia or petechiae Neurologic: non-focal exam (grossly), unable to assess Psychiatric: other (unable to assess) CBC and BMP: 04/25/18 05:22 04/25/18 05:22 ABG, PT/INR, D-dimer: ABG POC ABG pH 7.456 (7.35-7.45) H 04/16/18 13:07 POC ABG pCO2 43.1 (35-45) 04/16/18 13:07 POC ABG pO2 91 (80-105) 04/16/18 13:07 POC ABG HCO3 30.3 04/16/18 13:07 POC ABG Total CO2 32 04/16/18 13:07 POC ABG O2 Sat 97 04/16/18 13:07 Abnormal lab findings: Abnormal Labs 04/09/18 04/09/18 04/09/18 23:16 23:16 23:16 WBC 13.6 H Hct MCHC Plt Count Lymph % (Auto) 9.4 L Nye % (Auto) Lymph # Nye # Seg Neutrophils % 87.3 H Seg Neutrophils # 11.9 H POC ABG pH POC ABG pCO2 POC ABG pO2 Sodium 132 L Potassium Chloride 92.7 L BUN Glucose 143 H POC Glucose Hemoglobin A1c Lactic Acid 2.10 H* Calcium Phosphorus Magnesium Total Bilirubin 2.20 H AST 107 H Total Creatine Kinase CK-MB (CK-2) C-Reactive Protein Total Protein Albumin 04/10/18 04/10/18 04/10/18 00:38 00:55 01:13 WBC Hct MCHC Plt Count Lymph % (Auto) Nye % (Auto) Lymph # Nye # Seg Neutrophils % Seg Neutrophils # POC ABG pH POC ABG pCO2 POC ABG pO2 Sodium Potassium Chloride BUN Glucose POC Glucose 117 H 121 H Hemoglobin A1c Lactic Acid 2.10 H* Calcium Phosphorus Magnesium Total Bilirubin AST Total Creatine Kinase CK-MB (CK-2) C-Reactive Protein Total Protein Albumin 04/10/18 04/10/18 04/10/18 02:10 03:51 04:07 WBC 14.0 H Hct MCHC Plt Count Lymph % (Auto) 7.5 L Nye % (Auto) Lymph # 1.1 L Nye # 1.0 H Seg Neutrophils % 84.9 H Seg Neutrophils # 11.8 H POC ABG pH POC ABG pCO2 POC ABG pO2 Sodium Potassium Chloride BUN Glucose POC Glucose 153 H 158 H Hemoglobin A1c Lactic Acid Calcium Phosphorus Magnesium Total Bilirubin AST Total Creatine Kinase CK-MB (CK-2) C-Reactive Protein Total Protein Albumin 04/10/18 04/10/18 04/10/18 04:07 06:56 09:48 WBC Hct MCHC Plt Count Lymph % (Auto) Nye % (Auto) Lymph # Nye # Seg Neutrophils % Seg Neutrophils # POC ABG pH POC ABG pCO2 POC ABG pO2 Sodium 130 L Potassium Chloride 93.4 L BUN Glucose 180 H POC Glucose 251 H 245 H Hemoglobin A1c Lactic Acid Calcium 7.9 L D Phosphorus Magnesium Total Bilirubin AST Total Creatine Kinase 7857 H CK-MB (CK-2) 34.3 H C-Reactive Protein Total Protein Albumin 04/10/18 04/10/18 04/10/18 10:37 12:44 17:31 WBC Hct MCHC Plt Count Lymph % (Auto) Nye % (Auto) Lymph # Nye # Seg Neutrophils % Seg Neutrophils # POC ABG pH POC ABG pCO2 45.6 H POC ABG pO2 374 H Sodium Potassium Chloride BUN Glucose POC Glucose 348 H Hemoglobin A1c Lactic Acid Calcium Phosphorus Magnesium Total Bilirubin AST Total Creatine Kinase 9880 H CK-MB (CK-2) 30.0 H C-Reactive Protein Total Protein Albumin 04/10/18 04/11/18 04/11/18 23:36 03:52 04:28 WBC 12.2 H Hct MCHC Plt Count 132 L Lymph % (Auto) Nye % (Auto) 10.2 H Lymph # Nye # 1.2 H Seg Neutrophils % 75.1 H Seg Neutrophils # 9.1 H POC ABG pH 7.495 H POC ABG pCO2 32.4 L POC ABG pO2 Sodium Potassium Chloride BUN Glucose POC Glucose 148 H Hemoglobin A1c Lactic Acid Calcium Phosphorus Magnesium Total Bilirubin AST Total Creatine Kinase CK-MB (CK-2) C-Reactive Protein Total Protein Albumin 04/11/18 04/11/18 04/11/18 04:28 04:28 05:22 WBC Hct MCHC Plt Count Lymph % (Auto) Nye % (Auto) Lymph # Nye # Seg Neutrophils % Seg Neutrophils # POC ABG pH POC ABG pCO2 POC ABG pO2 Sodium 133 L Potassium 3.5 L Chloride 95.1 L BUN 7 L Glucose 206 H POC Glucose 178 H Hemoglobin A1c 6.4 H Lactic Acid Calcium 7.7 L Phosphorus 1.80 L Magnesium 1.50 L Total Bilirubin 4.10 H AST 168 H Total Creatine Kinase 9352 H CK-MB (CK-2) C-Reactive Protein Total Protein Albumin 3.4 L 04/11/18 04/11/18 04/11/18 11:28 13:43 17:30 WBC Hct MCHC Plt Count Lymph % (Auto) Nye % (Auto) Lymph # Nye # Seg Neutrophils % Seg Neutrophils # POC ABG pH POC ABG pCO2 POC ABG pO2 Sodium Potassium Chloride BUN Glucose POC Glucose 196 H 142 H Hemoglobin A1c Lactic Acid Calcium Phosphorus Magnesium Total Bilirubin AST Total Creatine Kinase CK-MB (CK-2) C-Reactive Protein 7.20 H Total Protein Albumin 04/11/18 04/11/18 04/12/18 18:59 23:23 04:00 WBC Hct MCHC Plt Count Lymph % (Auto) Nye % (Auto) Lymph # Nye # Seg Neutrophils % Seg Neutrophils # POC ABG pH 7.489 H POC ABG pCO2 34.5 L POC ABG pO2 Sodium Potassium 3.3 L Chloride BUN 6 L Glucose 151 H POC Glucose 129 H Hemoglobin A1c Lactic Acid Calcium 7.3 L Phosphorus 2.00 L Magnesium Total Bilirubin 2.80 H AST 121 H Total Creatine Kinase 5177 H CK-MB (CK-2) C-Reactive Protein Total Protein 5.9 L Albumin 3.1 L 04/12/18 04/12/18 04/12/18 04:00 04:04 05:21 WBC Hct 34.9 L MCHC 35 H Plt Count 128 L Lymph % (Auto) Nye % (Auto) 10.6 H Lymph # Nye # 0.9 H Seg Neutrophils % Seg Neutrophils # POC ABG pH 7.454 H POC ABG pCO2 POC ABG pO2 Sodium Potassium Chloride BUN Glucose POC Glucose 136 H Hemoglobin A1c Lactic Acid Calcium Phosphorus Magnesium Total Bilirubin AST Total Creatine Kinase CK-MB (CK-2) C-Reactive Protein Total Protein Albumin 04/12/18 04/13/18 04/13/18 11:23 00:21 04:57 WBC Hct MCHC Plt Count Lymph % (Auto) Nye % (Auto) Lymph # Nye # Seg Neutrophils % Seg Neutrophils # POC ABG pH POC ABG pCO2 34.7 L POC ABG pO2 125 H Sodium Potassium Chloride BUN Glucose POC Glucose 166 H 143 H Hemoglobin A1c Lactic Acid Calcium Phosphorus Magnesium Total Bilirubin AST Total Creatine Kinase CK-MB (CK-2) C-Reactive Protein Total Protein Albumin 04/13/18 04/13/18 04/13/18 05:02 05:02 12:16 WBC Hct MCHC Plt Count Lymph % (Auto) Nye % (Auto) Lymph # Nye # Seg Neutrophils % Seg Neutrophils # POC ABG pH POC ABG pCO2 POC ABG pO2 Sodium Potassium Chloride BUN Glucose POC Glucose 161 H 170 H Hemoglobin A1c Lactic Acid Calcium Phosphorus Magnesium Total Bilirubin AST Total Creatine Kinase 3456 H CK-MB (CK-2) C-Reactive Protein Total Protein Albumin 04/13/18 04/13/18 04/14/18 18:52 23:09 04:35 WBC Hct MCHC Plt Count Lymph % (Auto) Nye % (Auto) Lymph # Nye # Seg Neutrophils % Seg Neutrophils # POC ABG pH 7.467 H POC ABG pCO2 POC ABG pO2 Sodium Potassium Chloride BUN Glucose POC Glucose 196 H 219 H Hemoglobin A1c Lactic Acid Calcium Phosphorus Magnesium Total Bilirubin AST Total Creatine Kinase CK-MB (CK-2) C-Reactive Protein Total Protein Albumin 04/14/18 04/14/18 04/14/18 05:00 05:26 11:20 WBC Hct MCHC Plt Count Lymph % (Auto) Nye % (Auto) Lymph # Nye # Seg Neutrophils % Seg Neutrophils # POC ABG pH POC ABG pCO2 POC ABG pO2 Sodium Potassium Chloride BUN Glucose POC Glucose 249 H 260 H Hemoglobin A1c Lactic Acid Calcium Phosphorus Magnesium Total Bilirubin AST Total Creatine Kinase 2247 H CK-MB (CK-2) C-Reactive Protein Total Protein Albumin 04/14/18 04/14/18 04/14/18 17:04 17:51 23:53 WBC Hct MCHC Plt Count Lymph % (Auto) Nye % (Auto) Lymph # Nye # Seg Neutrophils % Seg Neutrophils # POC ABG pH POC ABG pCO2 POC ABG pO2 79 L Sodium Potassium Chloride BUN Glucose POC Glucose 284 H 203 H Hemoglobin A1c Lactic Acid Calcium Phosphorus Magnesium Total Bilirubin AST Total Creatine Kinase CK-MB (CK-2) C-Reactive Protein Total Protein Albumin 04/15/18 04/15/18 04/15/18 04:24 05:26 12:56 WBC Hct MCHC Plt Count Lymph % (Auto) Nye % (Auto) Lymph # Nye # Seg Neutrophils % Seg Neutrophils # POC ABG pH POC ABG pCO2 45.4 H POC ABG pO2 78 L Sodium Potassium Chloride BUN Glucose POC Glucose 194 H 200 H Hemoglobin A1c Lactic Acid Calcium Phosphorus Magnesium Total Bilirubin AST Total Creatine Kinase CK-MB (CK-2) C-Reactive Protein Total Protein Albumin 04/15/18 04/15/18 04/16/18 17:46 23:57 05:08 WBC Hct MCHC Plt Count Lymph % (Auto) Nye % (Auto) Lymph # Nye # Seg Neutrophils % Seg Neutrophils # POC ABG pH POC ABG pCO2 POC ABG pO2 Sodium Potassium Chloride BUN Glucose POC Glucose 118 H 204 H 221 H Hemoglobin A1c Lactic Acid Calcium Phosphorus Magnesium Total Bilirubin AST Total Creatine Kinase CK-MB (CK-2) C-Reactive Protein Total Protein Albumin 04/16/18 04/16/18 04/16/18 05:16 12:23 13:07 WBC Hct MCHC Plt Count Lymph % (Auto) Nye % (Auto) Lymph # Nye # Seg Neutrophils % Seg Neutrophils # POC ABG pH 7.456 H POC ABG pCO2 46.7 H POC ABG pO2 Sodium Potassium Chloride BUN Glucose POC Glucose 271 H Hemoglobin A1c Lactic Acid Calcium Phosphorus Magnesium Total Bilirubin AST Total Creatine Kinase CK-MB (CK-2) C-Reactive Protein Total Protein Albumin 04/16/18 04/17/18 04/17/18 19:14 00:08 05:46 WBC Hct MCHC Plt Count Lymph % (Auto) Nye % (Auto) Lymph # Nye # Seg Neutrophils % Seg Neutrophils # POC ABG pH POC ABG pCO2 POC ABG pO2 Sodium Potassium Chloride BUN Glucose POC Glucose 221 H 238 H 274 H Hemoglobin A1c Lactic Acid Calcium Phosphorus Magnesium Total Bilirubin AST Total Creatine Kinase CK-MB (CK-2) C-Reactive Protein Total Protein Albumin 04/17/18 13:50 WBC Hct MCHC Plt Count Lymph % (Auto) Nye % (Auto) Lymph # Nye # Seg Neutrophils % Seg Neutrophils # POC ABG pH POC ABG pCO2 POC ABG pO2 Sodium Potassium Chloride BUN Glucose POC Glucose 315 H Hemoglobin A1c Lactic Acid Calcium Phosphorus Magnesium Total Bilirubin AST Total Creatine Kinase CK-MB (CK-2) C-Reactive Protein Total Protein Albumin Allied health notes reviewed: nursing
[2018-04-17] MEDS: SODIUM CHLORIDE FLUSH SYRINGE 10 ML IV SCH ×2 (14:23→21:54)
[2018-04-17] MEDS: APRESOLINE IV PRN ×2 (14:54→23:22)
[2018-04-17 14:59] LABS: BUN/Creatinine Ratio 11; Blood Urea Nitrogen 9 mg/dL (9-20); Calcium 8.6 mg/dL (8.4-10.2); Hemolysis Index 1
--- NOTE | 2018-04-17 17:19 | Progress Note ---
Assessment and Plan Cultures: Blood culture 04/09/2018 no growth so far Urine culture 04/10/2018 no growth so far Sputum culture 04/10/2018 upper respiratory mikayla. Assessment: 78 y/o male with history of hypertension, diabetes, coronary artery disease; admitted on 04/09/2018 due to be found unresponsive at home when the family has not heard from him. EMS was called, his blood sugar was undetectable: 1) Sepsis: improving. Etiology most likely aspiration pneumonia. Blood culture 04/11/2018 no growth so far. UA neg. CRP=7 2) Presumed aspiration versus CAP: CXR focal infiltrate RLL. Sputum culture 04/10/2018 upper respiratory mikayla. Influenza neg. 3) Acute respiratory failure: from encephalopathy/pneumonia 4) Generalized seizures: from hypoglycemia 5) Elevated LFTs: from sepsis or other etiologies? rhabdo, better. Viral hepat itis serology all negative. US no visualized GB 6) Acute encephalopathy: post seizures/ischemia. 7) Rhabdomyolysis: better Recommendations: - follow-up blood cultures - completed ceftriaxone D5 of 5, azithromycin D5 of 5 - continue flagyl D4 of 5 to cover CAP versus aspiration pneumonia - monitor mentation Will follow. Tiffanie Crowe MD Infectious Diseases Experience Specialist [facility] ([facility]) M [phone] O [phone] Subjective Date of service: 04/17/18 Principal diagnosis: Ac Hypoxemic Resp Failure; Seizures; Encephalopathy; DM II; Rhabdomyolysis Interval history: Remains intubated on SBT now toleraring well, on sedation, open eyes, no fever x 72h ROS: unable to obtain Objective - Exam Narrative Exam: General appearance: opne eyes, intubated on SBT 30% in NAD Eyes: anicteric sclerae, moist conjunctivae; no lid-lag; PERRLA HENT: Atraumatic; oropharynx ETT/NGT Neck: Trachea midline; supple, no thyromegaly or lymphadenopathy Lungs: griffin coarse BS CV:bradycardic Abdomen: Soft, non-tender; no masses or hepatosplenomegaly Extremities: No peripheral edema or extremity lymphadenopathy Skin: Normal temperature, turgor and texture; no rash, ulcers or subcutaneous nodules Psych: alert. Neuro:alert Condom cath - Constitutional Vitals: Vital Signs Temp Pulse Resp BP Pulse Ox 98.3 F 95 H 21 162/88 100 04/17/18 12:00 04/17/18 15:00 04/17/18 15:00 04/17/18 15:00 04/17/18 15:00 Temperature -Last 24 Hours Temperature 98.3 F Temperature 98 F Temperature 99.7 F Temperature 98.9 F Temperature 98.2 F - Labs CBC & Chem 7: 04/12/18 04:00 04/17/18 14:20 Labs: Abnormal lab results 04/16/18 04/16/18 04/17/18 Range/Units 13:07 19:14 00:08 POC ABG pH 7.456 H (7.35-7.45) Potassium (3.6-5.0) mmol/L Chloride (98-107) mmol/L Carbon Dioxide (22-30) mmol/L Glucose (75-100) mg/dL POC Glucose 221 H 238 H (70-105) 04/17/18 04/17/18 04/17/18 Range/Units 05:46 13:50 13:59 POC ABG pH 7.474 H (7.35-7.45) Potassium (3.6-5.0) mmol/L Chloride (98-107) mmol/L Carbon Dioxide (22-30) mmol/L Glucose (75-100) mg/dL POC Glucose 274 H 315 H (70-105) 04/17/18 Range/Units 14:20 POC ABG pH (7.35-7.45) Potassium 3.4 L (3.6-5.0) mmol/L Chloride 93.6 L (98-107) mmol/L Carbon Dioxide 33 H (22-30) mmol/L Glucose 305 H (75-100) mg/dL POC Glucose (70-105)
[2018-04-17] MEDS ORDERED: POTASSIUM CHLORIDE FEEDTUBE ONE (18:00)
--- NOTE | 2018-04-17 23:57 | Progress Note ---
Assessment and Plan Assessment and plan: 78-year-old male patient with significant history of hypertension diabetes coronary artery disease was admitted through emergency room with history of unresponsivenessat home for unknown. At that time he had hypoglycemia and seizure activity,Patient was unable to protect his airway and was intubated on ventilatory support admitted to ICU, Hospital course -Neuro: Patient had CT scan 2 days should not show acute abnormality. 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 The family wants to continue aggressive care. If the patient is not able, he will most likely need to be trached and peg. Per [facility] policy, he must be on vent for >20 days prior to trache FEN; his electrolytes namely potassium and phosphate were repleted ID; the patient received empiric antibiotics for pneumonia Musculoskeletal; Traumatic Rhabdomyolysis; status post IV fluids and improved His medications were optimized for his chronic conditions Diagnosis Acute metabolic encephalopathy Hypoxic ischemic encephalopathy Pneumonia Sepsis Acute respiratory failure on mechanical ventilator greater than 96 hours Seizures due to hypoglycemia Hypoglycemia Hypokalemia Hyponatremia Type 2 diabetes Obesity Cr Care 33 min History Interval history: The patient remains intubated , off sedation, Unable to communicates with gestures or any other form of communication No fevers, seizures, or vomiting Hospitalist Physical - Physical exam Narrative exam: General.: Intubated , no distress HEENT: Moist mucous membranes, extraocular muscles intact, no lymphadenopathy Neck: supple Cardiac: S1-S2 heard Lungs: clear to auscultation bilaterally Abdomen: soft , nontender, nondistended, bowel sounds positive Extremities: no edema clubbing or cyanosis Skin: no rash or lesions Neurologic: Intubated , he is not sedated He opens eyes, moves head, opens his mouth, he moves all his extremities, he resists when his extremities are pulled, he does not obey commands, he does not turn to voice, doesn't make any eye contact - Constitutional Vitals: Temp Pulse Resp BP Pulse Ox 99.2 F 81 21 178/91 100 04/17/18 21:00 04/17/18 23:22 04/17/18 23:00 04/17/18 23:22 04/17/18 23:00 General appearance: Present: no acute distress, obese (Morbidly obese), other (intubated on vent) Results - Labs CBC & Chem 7: 04/12/18 04:00 04/17/18 14:20 Labs: Laboratory Last Values WBC 8.1 K/mm3 (4.5-11.0) 04/12/18 04:00 RBC 3.98 M/mm3 (3.65-5.03) 04/12/18 04:00 Hgb 12.0 gm/dl (11.8-15.2) 04/12/18 04:00 Hct 34.9 % (35.5-45.6) L 04/12/18 04:00 MCV 88 fl (84-94) 04/12/18 04:00 MCH 30 pg (28-32) 04/12/18 04:00 MCHC 35 % (32-34) H 04/12/18 04:00 RDW 14.4 % (13.2-15.2) 04/12/18 04:00 Plt Count 128 K/mm3 (140-440) L 04/12/18 04:00 Lymph % (Auto) 21.7 % (13.4-35.0) 04/12/18 04:00 Mcdowell % (Auto) 10.6 % (0.0-7.3) H 04/12/18 04:00 Eos % (Auto) 1.2 % (0.0-4.3) 04/12/18 04:00 Baso % (Auto) 0.7 % (0.0-1.8) 04/12/18 04:00 Lymph # 1.8 K/mm3 (1.2-5.4) 04/12/18 04:00 Mcdowell # 0.9 K/mm3 (0.0-0.8) H 04/12/18 04:00 Eos # 0.1 K/mm3 (0.0-0.4) 04/12/18 04:00 Baso # 0.1 K/mm3 (0.0-0.1) 04/12/18 04:00 Seg Neutrophils % 65.8 % (40.0-70.0) 04/12/18 04:00 Seg Neutrophils # 5.3 K/mm3 (1.8-7.7) 04/12/18 04:00 APTT 24.8 Sec. (24.2-36.6) 04/09/18 23:16 POC ABG pH 7.474 (7.35-7.45) H 04/17/18 13:59 POC ABG pCO2 44.8 (35-45) 04/17/18 13:59 POC ABG pO2 103 (80-105) 04/17/18 13:59 POC ABG HCO3 32.9 04/17/18 13:59 POC ABG Total CO2 34 04/17/18 13:59 POC ABG O2 Sat 98 04/17/18 13:59 POC ABG Base Excess 9 04/17/18 13:59 FiO2 30 % 04/17/18 13:59 Sodium 137 mmol/L (137-145) 04/17/18 14:20 Potassium 3.4 mmol/L (3.6-5.0) L 04/17/18 14:20 Chloride 93.6 mmol/L (98-107) L 04/17/18 14:20 Carbon Dioxide 33 mmol/L (22-30) H 04/17/18 14:20 Anion Gap 14 mmol/L 04/17/18 14:20 BUN 9 mg/dL (9-20) 04/17/18 14:20 Creatinine 0.8 mg/dL (0.8-1.5) 04/17/18 14:20 Estimated GFR > 60 ml/min 04/17/18 14:20 BUN/Creatinine Ratio 11 % 04/17/18 14:20 Glucose 305 mg/dL (75-100) H 04/17/18 14:20 POC Glucose 284 (70-105) H 04/17/18 23:26 Hemoglobin A1c 6.4 % (4-6) H 04/11/18 04:28 Lactic Acid 1.70 mmol/L (0.7-2.0) 04/10/18 02:47 Calcium 8.6 mg/dL (8.4-10.2) 04/17/18 14:20 Phosphorus 2.00 mg/dL (2.5-4.5) L 04/12/18 04:00 Magnesium 2.30 mg/dL (1.7-2.3) 04/12/18 04:00 Total Bilirubin 2.80 mg/dL (0.1-1.2) H 04/12/18 04:00 AST 121 units/L (5-40) H 04/12/18 04:00 ALT 48 units/L (7-56) 04/12/18 04:00 Alkaline Phosphatase 51 units/L (35-129) 04/12/18 04:00 Total Creatine Kinase 2247 units/L (55-170) H 04/14/18 05:00 CK-MB (CK-2) 30.0 ng/mL (0.0-4.0) H 04/10/18 10:37 CK-MB (CK-2) Rel Index 0.3 (0-4) 04/10/18 10:37 Troponin T < 0.010 ng/mL (0.00-0.029) 04/10/18 10:37 C-Reactive Protein 7.20 mg/dL (0.00-1.30) H 04/11/18 13:43 Total Protein 5.9 g/dL (6.3-8.2) L 04/12/18 04:00 Albumin 3.1 g/dL (3.9-5) L 04/12/18 04:00 Albumin/Globulin Ratio 1.1 % 04/12/18 04:00 Urine Color Yellow (Yellow) 04/10/18 01:07 Urine Turbidity Clear (Clear) 04/10/18 01:07 Urine pH 5.0 (5.0-7.0) 04/10/18 01:07 Ur Specific Timber 1.019 (1.003-1.030) 04/10/18 01:07 Urine Protein 100 mg/dl mg/dL (Negative) 04/10/18 01:07 Urine Glucose (UA) Neg mg/dL (Negative) 04/10/18 01:07 Urine Ketones Neg mg/dL (Negative) 04/10/18 01:07 Urine Blood Lg (Negative) 04/10/18 01:07 Urine Nitrite Neg (Negative) 04/10/18 01:07 Urine Bilirubin Neg (Negative) 04/10/18 01:07 Urine Urobilinogen < 2.0 mg/dL (<2.0) 04/10/18 01:07 Ur Leukocyte Esterase Neg (Negative) 04/10/18 01:07 Urine WBC (Auto) 1.0 /HPF (0.0-6.0) 04/10/18 01:07 Urine RBC (Auto) 9.0 /HPF (0.0-6.0) 04/10/18 01:07 U Epithel Cells (Auto) < 1.0 /HPF (0-13.0) 04/10/18 01:07 Urine Mucus Few /HPF 04/10/18 01:07 Levetiracetam 25.2 mcg/mL 04/12/18 20:37 Hepatitis A IgM Ab Non-reactive (NonReactive) 04/14/18 14:56 Hep Bs Antigen Non-reactive (Negative) 04/14/18 14:56 Hep B Core IgM Ab Non-reactive (NonReactive) 04/14/18 14:56 Hepatitis C Antibody Non-reactive (NonReactive) 04/14/18 14:56 Influenza A (Rapid) Negative (Negative) 04/11/18 15:08 Influenza B (Rapid) Negative (Negative) 04/11/18 15:08 Nutrition/Malnutrition Assess - Dietary Evaluation Nutrition/Malnutrition Findings: Nutrition Notes Start: 04/11/18 1 0:20 Freq: Status: Active Protocol: Document 04/17/18 13:49 CP (Rec: 04/17/18 13:53 CP [id number]) Co-Sign 04/17/18 13:49 NHALL Nutrition Notes Initial or Follow up Brief Note Current Diet TF - Vital High Protein at 60ml/hr Subjective/Other Information Vital High Protein not infusing at time of visit (09: 45). Vital AF 1.2 infusing at 65mL/hr. Spoke with RN to start Vital HP. Nutrition Intervention Follow-Up By: 04/18/18 Additional Comments F/U: TF formula change to Vital High Protein
--- NOTE | 2018-04-18 02:42 | XRay Report ---
FINAL REPORT PROCEDURE: XR CHEST 1V AP TECHNIQUE: Chest radiograph anteroposterior view. CPT 00027 HISTORY: follow up respiratory failure COMPARISON: 04/17/2018 FINDINGS: Heart: Normal. Mediastinum/Vessels: Normal. Lungs/Pleural space: Normal. Bony thorax: No acute osseous abnormality. Life support devices: The endotracheal tube ends 3 centimeters above the yanely. A nasogastric tube e nds below the hemidiaphragms. Left PICC catheter ends in the SVC. IMPRESSION: There is no evidence of an acute cardiopulmonary process. Tubes and lines are properly positioned..
[2018-04-18] MEDS: FLAGYL 500 MG/100 ML 500 MG/100 ML BAG IV SCH ×3 (05:54→22:02)
[2018-04-18] MEDS: HumaLOG SUB-Q SCH ×3 (05:54→19:03)
--- NOTE | 2018-04-18 07:33 | Progress Note ---
Assessment and Plan Cultures: Blood culture 04/09/2018 no growth so far Urine culture 04/10/2018 no growth so far Sputum culture 04/10/2018 upper respiratory mikayla. Assessment: 78 y/o male with history of hypertension, diabetes, coronary artery disease; admitted on 04/09/2018 due to be found unresponsive at home when the family has not heard from him. EMS was called, his blood sugar was undetectable: 1) Sepsis: improving. Etiology most likely aspiration pneumonia. Blood culture 04/11/2018 no growth so far. UA neg. CRP=7 2) Presumed aspiration versus CAP: CXR focal infiltrate RLL. Sputum culture 04/10/2018 upper respiratory mikayla. Influenza neg. 3) Acute respiratory failure:on vent, from encephalopathy/pneumonia 4) Generalized seizures: from hypoglycemia, resolved 5) Elevated LFTs: better; from sepsis or other etiologies? rhabdo, better. Viral hepatitis serology all negative. US no visualized GB 6) Acute encephalopathy: post seizures/ischemia. somnolent 7) Rhabdomyolysis: better Recommendations: - check LFTs - completed ceftriaxone D5 of 5, azithromycin D5 of 5 on 04/17/2018 - continue flagyl D5 of 5 to cover CAP versus aspiration pneumonia - monitor mentation Will sign off Tiffanie Crowe MD Infectious Diseases [employer] [facility] M [phone] O [phone] Subjective Date of service: 04/18/18 Principal diagnosis: Ac Hypoxemic Resp Failure; Seizures; Encephalopathy; DM II; Rhabdomyolysis Interval history: Remains intubated on now on Fio2 30% p6 , off sedation, open eyes, no fever x 4 days ROS: unable to obtain Objective - Exam Narrative Exam: General appearance: open eyes, intubated on fiO2 30%, p 6 in NAD Eyes: anicteric sclerae, moist conjunctivae; no lid-lag; PERRLA HENT: Atraumatic; oropharynx ETT/NGT Neck: Trachea midline; supple, no thyromegaly or lymphadenopathy Lungs: griffin coarse BS CV:bradycardic Abdomen: Soft, non-tender; no masses or hepatosplenomegaly Extremities: No peripheral edema or extremity lymphadenopathy Skin: Normal temperature, turgor and texture; no rash, ulcers or subcutaneous nodules Psych: asomnolent Neuro: somnolent Condom cath - Constitutional Vitals: Vital Signs Temp Pulse Resp BP Pulse Ox 99.7 F H 91 H 19 145/67 100 04/18/18 04:00 04/18/18 07:00 04/18/18 07:00 04/18/18 07:00 04/18/18 07:00 Temperature -Last 24 Hours Temperature 99.7 F Temperature 99.4 F Temperature 99.2 F Temperature 99.1 F Temperature 98.1 F Temperature 98.3 F Temperature 98 F - Labs CBC & Chem 7: 04/12/18 04:00 04/17/18 14:20 Labs: Abnormal lab results 04/17/18 04/17/18 04/17/18 Range/Units 13:50 13:59 14:20 POC ABG pH 7.474 H (7.35-7.45) Potassium 3.4 L (3.6-5.0) mmol/L Chloride 93.6 L (98-107) mmol/L Carbon Dioxide 33 H (22-30) mmol/L Glucose 305 H (75-100) mg/dL POC Glucose 315 H (70-105) 04/17/18 04/17/18 04/18/18 Range/Units 17:04 23:26 04:20 POC ABG pH 7.473 H (7.35-7.45) Potassium (3.6-5.0) mmol/L Chloride (98-107) mmol/L Carbon Dioxide (22-30) mmol/L Glucose (75-100) mg/dL POC Glucose 280 H 284 H (70-105) 04/18/18 Range/Units 05:14 POC ABG pH (7.35-7.45) Potassium (3.6-5.0) mmol/L Chloride (98-107) mmol/L Carbon Dioxide (22-30) mmol/L Glucose (75-100) mg/dL POC Glucose 286 H (70-105)
[2018-04-18] MEDS: DUONEB *Not for PRN Use IH SCH ×3 (09:12→20:16)
--- NOTE | 2018-04-18 09:50 | Progress Note ---
Assessment and Plan Acute Hypoxemic Respiratory Failure on MVS fro airway protection/seizures New Onset Seizures (presumed secondary to Hypoglycemia) Acute Encephalopathy (Toxic -Metabolic) Diabetes Type II, hypoglycemia Rhabdomyolysis Obesity HTN Possible JOE Hyponatremia (mild) Hypomagnesemia Leucocytosis h/o Alcohol use disorder -VAP bundle addressed -Anti-seizure medications -Analgesia and agitation management. -VTE and stress ulcer prophylaxis -AEDs (Keppra) -Enteric nutrition with glycemic control (sub-optimal control at this time, increase lantus dosing) -Target blood glucose level 140-180mg/dL -Avoid hypoglycemia -Critical care bundles addressed -Aspiration precautions - Wean supplemental oxygen to keep O2 sats > 90% -Lung protective strategies - Bronchodilators per protocol - Daily SAT's and SBT - Replace electrolytes as indicated If his encephalopathy persists, precluding extubation will need to have discus sions with the family re tracheostomy CONDITION: CRITICAL PROGNOSIS: GUARDED CODE STATUS: FULL CODE The high probability of a clinically significant, sudden or life-threatening deterioration of the [respiratory, renal, endocrine, neurology] system(s) required my full and direct attention, intervention and personal management. The aggregate critical care time was [35] minutes without overlap. Time includes spent on; [x] Data Review and interpretation [x] Patient assessment and monitoring of vital signs [x] Documentation [x] Medication orders and management Subjective Date of service: 04/18/18 Principal diagnosis: Ac Hypoxemic Resp Failure; Seizures; Encephalopathy; DM II; Rhabdomyolysis Interval history: Patient is seen today for: Acute Hypoxemic Respiratory Failure; New Onset Seizures (presumed secondary to Hypoglycemia); Acute Encephalopathy (Toxic - Metabolic); Diabetes Type II; Rhabdomyolysis Seen and examined at bedside; 24hour events reviewed; nursing and respiratory care staff consulted; no adverse overnight events reported to me; resting peacefully in bed; remains encephalopathic, though he tolerates SBT trials. Remains on MVS, no fevers documented overnight. Episodes of hypertension associated with weaning trials, otherwise remains normotensive. Discussed on ICU-IDT bedside rounds Objective Vital Signs - 12hr 04/17/18 04/17/18 04/17/18 22:00 23:00 23:22 Temperature Pulse Rate 73 102 H 81 Pulse Rate [ Bilateral Throughout] Pulse Rate [ From Monitor] Respiratory 20 21 Rate Respiratory Rate [Bilateral Throughout] Blood Pressure 163/70 162/101 178/91 O2 Sat by Pulse 100 100 Oximetry 04/17/18 04/18/18 04/18/18 23:47 00:00 00:20 Temperature 99.4 F Pulse Rate 103 H 102 H 97 H Pulse Rate [ Bilateral Throughout] Pulse Rate [ 102 H From Monitor] Respiratory 30 H 16 Rate Respiratory Rate [Bilateral Throughout] Blood Pressure 177/131 138/77 O2 Sat by Pulse 100 100 100 Oximetry 04/18/18 04/18/18 04/18/18 01:01 02:01 03:01 Temperature Pulse Rate 102 H 88 80 Pulse Rate [ Bilateral Throughout] Pulse Rate [ From Monitor] Respiratory 26 H 14 17 Rate Respiratory Rate [Bilateral Throughout] Blood Pressure 155/89 131/75 137/68 O2 Sat by Pulse 100 100 100 Oximetry 04/18/18 04/18/18 04/18/18 04:00 04:01 04:15 Temperature 99.7 F H Pulse Rate 88 70 Pulse Rate [ Bilateral Throughout] Pulse Rate [ 102 H From Monitor] Respiratory 16 16 Rate Respiratory Rate [Bilateral Throughout] Blood Pressure 165/63 O2 Sat by Pulse 100 100 100 Oximetry 04/18/18 04/18/18 04/18/18 05:00 06:01 07:00 Temperature Pulse Rate 95 H 94 H 91 H Pulse Rate [ Bilateral Throughout] Pulse Rate [ From Monitor] Respiratory 22 20 19 Rate Respiratory Rate [Bilateral Throughout] Blood Pressure 160/76 176/90 145/67 O2 Sat by Pulse 100 100 100 Oximetry 04/18/18 04/18/18 04/18/18 08:00 09:12 09:13 Temperature 98.8 F Pulse Rate 88 79 Pulse Rate [ 94 H Bilateral Throughout] Pulse Rate [ From Monitor] Respiratory 17 Rate Respiratory 11 L Rate [Bilateral Throughout] Blood Pressure 158/75 O2 Sat by Pulse 100 100 Oximetry Constitutional: no acute distress, other (Elderly looking AAM, normocephalic and atraumatic with mildly increased respiratory effort on MVS) Eyes: non-icteric ENT: oropharynx moist, other (ETT 23 cm STEPHANIE) Neck: supple, no lymphadenopathy, no JVD, other (large neck circumference) Effort: mildly labored Ascultation: Bilateral: diminished breath sounds, rhonchi Percussion: Bilateral: not dull Cardiovascular: regular rate and rhythm Gastrointestinal: normoactive bowel sounds, soft, non-tender, non-distended, other (protuberant) Integumentary: normal Extremities: no cyanosis, no edema, pulses normal, no ischemia or petechiae Neurologic: pupils equal and round, unable to assess Psychiatric: other (unable to assess) CBC and BMP: 04/12/18 04:00 04/17/18 14:20 ABG, PT/INR, D-dimer: ABG POC ABG pH 7.473 (7.35-7.45) H 04/18/18 04:20 POC ABG pCO2 40.4 (35-45) 04/18/18 04:20 POC ABG pO2 102 (80-105) 04/18/18 04:20 POC ABG HCO3 29.7 04/18/18 04:20 POC ABG Total CO2 31 04/18/18 04:20 POC ABG O2 Sat 98 04/18/18 04:20 Abnormal lab findings: Abnormal Labs 04/09/18 04/09/18 04/09/18 23:16 23:16 23:16 WBC 13.6 H Hct MCHC Plt Count Lymph % (Auto) 9.4 L Henry % (Auto) Lymph # Henry # Seg Neutrophils % 87.3 H Seg Neutrophils # 11.9 H POC ABG pH POC ABG pCO2 POC ABG pO2 Sodium 132 L Potassium Chloride 92.7 L Carbon Dioxide BUN Glucose 143 H POC Glucose Hemoglobin A1c Lactic Acid 2.10 H* Calcium Phosphorus Magnesium Total Bilirubin 2.20 H AST 107 H Total Creatine Kinase CK-MB (CK-2) C-Reactive Protein Total Protein Albumin 04/10/18 04/10/18 04/10/18 00:38 00:55 01:13 WBC Hct MCHC Plt Count Lymph % (Auto) Henry % (Auto) Lymph # Henry # Seg Neutrophils % Seg Neutrophils # POC ABG pH POC ABG pCO2 POC ABG pO2 Sodium Potassium Chloride Carbon Dioxide BUN Glucose POC Glucose 117 H 121 H Hemoglobin A1c Lactic Acid 2.10 H* Calcium Phosphorus Magnesium Total Bilirubin AST Total Creatine Kinase CK-MB (CK-2) C-Reactive Protein Total Protein Albumin 04/10/18 04/10/18 04/10/18 02:10 03:51 04:07 WBC 14.0 H Hct MCHC Plt Count Lymph % (Auto) 7.5 L Henry % (Auto) Lymph # 1.1 L Henry # 1.0 H Seg Neutrophils % 84.9 H Seg Neutrophils # 11.8 H POC ABG pH POC ABG pCO2 POC ABG pO2 Sodium Potassium Chloride Carbon Dioxide BUN Glucose POC Glucose 153 H 158 H Hemoglobin A1c Lactic Acid Calcium Phosphorus Magnesium Total Bilirubin AST Total Creatine Kinase CK-MB (CK-2) C-Reactive Protein Total Protein Albumin 04/10/18 04/10/18 04/10/18 04:07 06:56 09:48 WBC Hct MCHC Plt Count Lymph % (Auto) Henry % (Auto) Lymph # Henry # Seg Neutrophils % Seg Neutrophils # POC ABG pH POC ABG pCO2 POC ABG pO2 Sodium 130 L Potassium Chloride 93.4 L Carbon Dioxide BUN Glucose 180 H POC Glucose 251 H 245 H Hemoglobin A1c Lactic Acid Calcium 7.9 L D Phosphorus Magnesium Total Bilirubin AST Total Creatine Kinase 7857 H CK-MB (CK-2) 34.3 H C-Reactive Protein Total Protein Albumin 04/10/18 04/10/18 04/10/18 10:37 12:44 17:31 WBC Hct MCHC Plt Count Lymph % (Auto) Henry % (Auto) Lymph # Henry # Seg Neutrophils % Seg Neutrophils # POC ABG pH POC ABG pCO2 45.6 H POC ABG pO2 374 H Sodium Potassium Chloride Carbon Dioxide BUN Glucose POC Glucose 348 H Hemoglobin A1c Lactic Acid Calcium Phosphorus Magnesium Total Bilirubin AST Total Creatine Kinase 9880 H CK-MB (CK-2) 30.0 H C-Reactive Protein Total Protein Albumin 04/10/18 04/11/18 04/11/18 23:36 03:52 04:28 WBC 12.2 H Hct MCHC Plt Count 132 L Lymph % (Auto) Henry % (Auto) 10.2 H Lymph # Henry # 1.2 H Seg Neutrophils % 75.1 H Seg Neutrophils # 9.1 H POC ABG pH 7.495 H POC ABG pCO2 32.4 L POC ABG pO2 Sodium Potassium Chloride Carbon Dioxide BUN Glucose POC Glucose 148 H Hemoglobin A1c Lactic Acid Calcium Phosphorus Magnesium Total Bilirubin AST Total Creatine Kinase CK-MB (CK-2) C-Reactive Protein Total Protein Albumin 04/11/18 04/11/18 04/11/18 04:28 04:28 05:22 WBC Hct MCHC Plt Count Lymph % (Auto) Henry % (Auto) Lymph # Henry # Seg Neutrophils % Seg Neutrophils # POC ABG pH POC ABG pCO2 POC ABG pO2 Sodium 133 L Potassium 3.5 L Chloride 95.1 L Carbon Dioxide BUN 7 L Glucose 206 H POC Glucose 178 H Hemoglobin A1c 6.4 H Lactic Acid Calcium 7.7 L Phosphorus 1.80 L Magnesium 1.50 L Total Bilirubin 4.10 H AST 168 H Total Creatine Kinase 9352 H CK-MB (CK-2) C-Reactive Protein Total Protein Albumin 3.4 L 04/11/18 04/11/18 04/11/18 11:28 13:43 17:30 WBC Hct MCHC Plt Count Lymph % (Auto) Henry % (Auto) Lymph # Henry # Seg Neutrophils % Seg Neutrophils # POC ABG pH POC ABG pCO2 POC ABG pO2 Sodium Potassium Chloride Carbon Dioxide BUN Glucose POC Glucose 196 H 142 H Hemoglobin A1c Lactic Acid Calcium Phosphorus Magnesium Total Bilirubin AST Total Creatine Kinase CK-MB (CK-2) C-Reactive Protein 7.20 H Total Protein Albumin 04/11/18 04/11/18 04/12/18 18:59 23:23 04:00 WBC Hct MCHC Plt Count Lymph % (Auto) Henry % (Auto) Lymph # Henry # Seg Neutrophils % Seg Neutrophils # POC ABG pH 7.489 H POC ABG pCO2 34.5 L POC ABG pO2 Sodium Potassium 3.3 L Chloride Carbon Dioxide BUN 6 L Glucose 151 H POC Glucose 129 H Hemoglobin A1c Lactic Acid Calcium 7.3 L Phosphorus 2.00 L Magnesium Total Bilirubin 2.80 H AST 121 H Total Creatine Kinase 5177 H CK-MB (CK-2) C-Reactive Protein Total Protein 5.9 L Albumin 3.1 L 04/12/18 04/12/18 04/12/18 04:00 04:04 05:21 WBC Hct 34.9 L MCHC 35 H Plt Count 128 L Lymph % (Auto) Henry % (Auto) 10.6 H Lymph # Henry # 0.9 H Seg Neutrophils % Seg Neutrophils # POC ABG pH 7.454 H POC ABG pCO2 POC ABG pO2 Sodium Potassium Chloride Carbon Dioxide BUN Glucose POC Glucose 136 H Hemoglobin A1c Lactic Acid Calcium Phosphorus Magnesium Total Bilirubin AST Total Creatine Kinase CK-MB (CK-2) C-Reactive Protein Total Protein Albumin 04/12/18 04/13/18 04/13/18 11:23 00:21 04:57 WBC Hct MCHC Plt Count Lymph % (Auto) Henry % (Auto) Lymph # Henry # Seg Neutrophils % Seg Neutrophils # POC ABG pH POC ABG pCO2 34.7 L POC ABG pO2 125 H Sodium Potassium Chloride Carbon Dioxide BUN Glucose POC Glucose 166 H 143 H Hemoglobin A1c Lactic Acid Calcium Phosphorus Magnesium Total Bilirubin AST Total Creatine Kinase CK-MB (CK-2) C-Reactive Protein Total Protein Albumin 04/13/18 04/13/18 04/13/18 05:02 05:02 12:16 WBC Hct MCHC Plt Count Lymph % (Auto) Henry % (Auto) Lymph # Henry # Seg Neutrophils % Seg Neutrophils # POC ABG pH POC ABG pCO2 POC ABG pO2 Sodium Potassium Chloride Carbon Dioxide BUN Glucose POC Glucose 161 H 170 H Hemoglobin A1c Lactic Acid Calcium Phosphorus Magnesium Total Bilirubin AST Total Creatine Kinase 3456 H CK-MB (CK-2) C-Reactive Protein Total Protein Albumin 04/13/18 04/13/18 04/14/18 18:52 23:09 04:35 WBC Hct MCHC Plt Count Lymph % (Auto) Henry % (Auto) Lymph # Henry # Seg Neutrophils % Seg Neutrophils # POC ABG pH 7.467 H POC ABG pCO2 POC ABG pO2 Sodium Potassium Chloride Carbon Dioxide BUN Glucose POC Glucose 196 H 219 H Hemoglobin A1c Lactic Acid Calcium Phosphorus Magnesium Total Bilirubin AST Total Creatine Kinase CK-MB (CK-2) C-Reactive Protein Total Protein Albumin 04/14/18 04/14/18 04/14/18 05:00 05:26 11:20 WBC Hct MCHC Plt Count Lymph % (Auto) Henry % (Auto) Lymph # Henry # Seg Neutrophils % Seg Neutrophils # POC ABG pH POC ABG pCO2 POC ABG pO2 Sodium Potassium Chloride Carbon Dioxide BUN Glucose POC Glucose 249 H 260 H Hemoglobin A1c Lactic Acid Calcium Phosphorus Magnesium Total Bilirubin AST Total Creatine Kinase 2247 H CK-MB (CK-2) C-Reactive Protein Total Protein Albumin 04/14/18 04/14/18 04/14/18 17:04 17:51 23:53 WBC Hct MCHC Plt Count Lymph % (Auto) Henry % (Auto) Lymph # Henry # Seg Neutrophils % Seg Neutrophils # POC ABG pH POC ABG pCO2 POC ABG pO2 79 L Sodium Potassium Chloride Carbon Dioxide BUN Glucose POC Glucose 284 H 203 H Hemoglobin A1c Lactic Acid Calcium Phosphorus Magnesium Total Bilirubin AST Total Creatine Kinase CK-MB (CK-2) C-Reactive Protein Total Protein Albumin 04/15/18 04/15/18 04/15/18 04:24 05:26 12:56 WBC Hct MCHC Plt Count Lymph % (Auto) Henry % (Auto) Lymph # Henry # Seg Neutrophils % Seg Neutrophils # POC ABG pH POC ABG pCO2 45.4 H POC ABG pO2 78 L Sodium Potassium Chloride Carbon Dioxide BUN Glucose POC Glucose 194 H 200 H Hemoglobin A1c Lactic Acid Calcium Phosphorus Magnesium Total Bilirubin AST Total Creatine Kinase CK-MB (CK-2) C-Reactive Protein Total Protein Albumin 04/15/18 04/15/18 04/16/18 17:46 23:57 05:08 WBC Hct MCHC Plt Count Lymph % (Auto) Henry % (Auto) Lymph # Henry # Seg Neutrophils % Seg Neutrophils # POC ABG pH POC ABG pCO2 POC ABG pO2 Sodium Potassium Chloride Carbon Dioxide BUN Glucose POC Glucose 118 H 204 H 221 H Hemoglobin A1c Lactic Acid Calcium Phosphorus Magnesium Total Bilirubin AST Total Creatine Kinase CK-MB (CK-2) C-Reactive Protein Total Protein Albumin 04/16/18 04/16/18 04/16/18 05:16 12:23 13:07 WBC Hct MCHC Plt Count Lymph % (Auto) Henry % (Auto) Lymph # Henry # Seg Neutrophils % Seg Neutrophils # POC ABG pH 7.456 H POC ABG pCO2 46.7 H POC ABG pO2 Sodium Potassium Chloride Carbon Dioxide BUN Glucose POC Glucose 271 H Hemoglobin A1c Lactic Acid Calcium Phosphorus Magnesium Total Bilirubin AST Total Creatine Kinase CK-MB (CK-2) C-Reactive Protein Total Protein Albumin 04/16/18 04/17/18 04/17/18 19:14 00:08 05:46 WBC Hct MCHC Plt Count Lymph % (Auto) Henry % (Auto) Lymph # Henry # Seg Neutrophils % Seg Neutrophils # POC ABG pH POC ABG pCO2 POC ABG pO2 Sodium Potassium Chloride Carbon Dioxide BUN Glucose POC Glucose 221 H 238 H 274 H Hemoglobin A1c Lactic Acid Calcium Phosphorus Magnesium Total Bilirubin AST Total Creatine Kinase CK-MB (CK-2) C-Reactive Protein Total Protein Albumin 04/17/18 04/17/18 04/17/18 13:50 13:59 14:20 WBC Hct MCHC Plt Count Lymph % (Auto) Henry % (Auto) Lymph # Henry # Seg Neutrophils % Seg Neutrophils # POC ABG pH 7.474 H POC ABG pCO2 POC ABG pO2 Sodium Potassium 3.4 L Chloride 93.6 L Carbon Dioxide 33 H BUN Glucose 305 H POC Glucose 315 H Hemoglobin A1c Lactic Acid Calcium Phosphorus Magnesium Total Bilirubin AST Total Creatine Kinase CK-MB (CK-2) C-Reactive Protein Total Protein Albumin 04/17/18 04/17/18 04/18/18 17:04 23:26 04:20 WBC Hct MCHC Plt Count Lymph % (Auto) Henry % (Auto) Lymph # Henry # Seg Neutrophils % Seg Neutrophils # POC ABG pH 7.473 H POC ABG pCO2 POC ABG pO2 Sodium Potassium Chloride Carbon Dioxide BUN Glucose POC Glucose 280 H 284 H Hemoglobin A1c Lactic Acid Calcium Phosphorus Magnesium Total Bilirubin AST Total Creatine Kinase CK-MB (CK-2) C-Reactive Protein Total Protein Albumin 04/18/18 04/18/18 05:14 08:32 WBC Hct MCHC Plt Count Lymph % (Auto) Henry % (Auto) Lymph # Henry # Seg Neutrophils % Seg Neutrophils # POC ABG pH POC ABG pCO2 POC ABG pO2 Sodium Potassium Chloride Carbon Dioxide BUN Glucose POC Glucose 286 H 296 H Hemoglobin A1c Lactic Acid Calcium Phosphorus Magnesium Total Bilirubin AST Total Creatine Kinase CK-MB (CK-2) C-Reactive Protein Total Protein Albumin Chest x-ray: image reviewed Allied health notes reviewed: RT
[2018-04-18] MEDS: LANTUS SUB-Q SCH (11:00)
[2018-04-18] MEDS: PEPCID PO SCH ×2 (11:01→22:02)
[2018-04-18] MEDS: KEPPRA PO SCH ×2 (11:01→22:03)
[2018-04-18] MEDS: LOVENOX SUB-Q SCH (11:01)
--- NOTE | 2018-04-18 11:38 | Progress Note ---
Assessment and Plan Assessment and plan: 78-year-old male patient with significant history of hypertension diabetes coronary artery disease was admitted through emergency room with history of unresponsivenessat home for unknown. At that time he had hypoglycemia and seizure activity,Patient was unable to protect his airway and was intubated on ventilatory support admitted to ICU, Hospital course -Neuro: Patient had CT scan 2 days should not show acute abnormality. 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 The family wants to continue aggressive care. If the patient is not able, he will most likely need to be trached and peg. Per [facility] policy, he must be on vent for >20 days prior to trache FEN; his electrolytes namely potassium and phosphate were repleted ID; the patient received empiric antibiotics for pneumonia Musculoskeletal; Traumatic Rhabdomyolysis; status post IV fluids and improved His medications were optimized for his chronic conditions Diagnosis Acute metabolic encephalopathy Hypoxic ischemic encephalopathy Pneumonia Sepsis Acute respiratory failure on mechanical ventilator greater than 96 hours Seizures due to hypoglycemia Hypoglycemia Hypokalemia Hyponatremia Type 2 diabetes Obesity Cr Care 33 min History Interval history: The patient remains intubated , off sedation, Unable to communicates with gestures or any other form of communication No fevers, seizures, or vomiting Hospitalist Physical - Physical exam Narrative exam: General.: Intubated , no distress HEENT: Moist mucous membranes, extraocular muscles intact, no lymphadenopathy Neck: supple Cardiac: S1-S2 heard Lungs: clear to auscultation bilaterally Abdomen: soft , nontender, nondistended, bowel sounds positive Extremities: no edema clubbing or cyanosis Skin: no rash or lesions Neurologic: Intubated , he is not sedated He opens eyes, moves head, opens his mouth, he moves all his extremities, he resists when his extremities are pulled, he does not obey commands, he does not turn to voice, doesn't make any eye contact - Constitutional Vitals: Temp Pulse Resp BP Pulse Ox 98.8 F 96 H 13 158/75 100 04/18/18 08:00 04/18/18 09:20 04/18/18 09:20 04/18/18 08:00 04/18/18 09:13 General appearance: Present: no acute distress, obese (Morbidly obese), other (intubated on vent) Results - Labs CBC & Chem 7: 04/12/18 04:00 04/17/18 14:20 Labs: Laboratory Last Values WBC 8.1 K/mm3 (4.5-11.0) 04/12/18 04:00 RBC 3.98 M/mm3 (3.65-5.03) 04/12/18 04:00 Hgb 12.0 gm/dl (11.8-15.2) 04/12/18 04:00 Hct 34.9 % (35.5-45.6) L 04/12/18 04:00 MCV 88 fl (84-94) 04/12/18 04:00 MCH 30 pg (28-32) 04/12/18 04:00 MCHC 35 % (32-34) H 04/12/18 04:00 RDW 14.4 % (13.2-15.2) 04/12/18 04:00 Plt Count 128 K/mm3 (140-440) L 04/12/18 04:00 Lymph % (Auto) 21.7 % (13.4-35.0) 04/12/18 04:00 [place] % (Auto) 10.6 % (0.0-7.3) H 04/12/18 04:00 Eos % (Auto) 1.2 % (0.0-4.3) 04/12/18 04:00 Baso % (Auto) 0.7 % (0.0-1.8) 04/12/18 04:00 Lymph # 1.8 K/mm3 (1.2-5.4) 04/12/18 04:00 [place] # 0.9 K/mm3 (0.0-0.8) H 04/12/18 04:00 Eos # 0.1 K/mm3 (0.0-0.4) 04/12/18 04:00 Baso # 0.1 K/mm3 (0.0-0.1) 04/12/18 04:00 Seg Neutrophils % 65.8 % (40.0-70.0) 04/12/18 04:00 Seg Neutrophils # 5.3 K/mm3 (1.8-7.7) 04/12/18 04:00 APTT 24.8 Sec. (24.2-36.6) 04/09/18 23:16 POC ABG pH 7.473 (7.35-7.45) H 04/18/18 04:20 POC ABG pCO2 40.4 (35-45) 04/18/18 04:20 POC ABG pO2 102 (80-105) 04/18/18 04:20 POC ABG HCO3 29.7 04/18/18 04:20 POC ABG Total CO2 31 04/18/18 04:20 POC ABG O2 Sat 98 04/18/18 04:20 POC ABG Base Excess 6 04/18/18 04:20 FiO2 30 % 04/18/18 04:20 Sodium 137 mmol/L (137-145) 04/17/18 14:20 Potassium 3.4 mmol/L (3.6-5.0) L 04/17/18 14:20 Chloride 93.6 mmol/L (98-107) L 04/17/18 14:20 Carbon Dioxide 33 mmol/L (22-30) H 04/17/18 14:20 Anion Gap 14 mmol/L 04/17/18 14:20 BUN 9 mg/dL (9-20) 04/17/18 14:20 Creatinine 0.8 mg/dL (0.8-1.5) 04/17/18 14:20 Estimated GFR > 60 ml/min 04/17/18 14:20 BUN/Creatinine Ratio 11 % 04/17/18 14:20 Glucose 305 mg/dL (75-100) H 04/17/18 14:20 POC Glucose 296 (70-105) H 04/18/18 08:32 Hemoglobin A1c 6.4 % (4-6) H 04/11/18 04:28 Lactic Acid 1.70 mmol/L (0.7-2.0) 04/10/18 02:47 Calcium 8.6 mg/dL (8.4-10.2) 04/17/18 14:20 Phosphorus 2.00 mg/dL (2.5-4.5) L 04/12/18 04:00 Magnesium 2.30 mg/dL (1.7-2.3) 04/12/18 04:00 Total Bilirubin 2.80 mg/dL (0.1-1.2) H 04/12/18 04:00 AST 121 units/L (5-40) H 04/12/18 04:00 ALT 48 units/L (7-56) 04/12/18 04:00 Alkaline Phosphatase 51 units/L (35-129) 04/12/18 04:00 Total Creatine Kinase 2247 units/L (55-170) H 04/14/18 05:00 CK-MB (CK-2) 30.0 ng/mL (0.0-4.0) H 04/10/18 10:37 CK-MB (CK-2) Rel Index 0.3 (0-4) 04/10/18 10:37 Troponin T < 0.010 ng/mL (0.00-0.029) 04/10/18 10:37 C-Reactive Protein 7.20 mg/dL (0.00-1.30) H 04/11/18 13:43 Total Protein 5.9 g/dL (6.3-8.2) L 04/12/18 04:00 Albumin 3.1 g/dL (3.9-5) L 04/12/18 04:00 Albumin/Globulin Ratio 1.1 % 04/12/18 04:00 Urine Color Yellow (Yellow) 04/10/18 01:07 Urine Turbidity Clear (Clear) 04/10/18 01:07 Urine pH 5.0 (5.0-7.0) 04/10/18 01:07 Ur Specific [place] 1.019 (1.003-1.030) 04/10/18 01:07 Urine Protein 100 mg/dl mg/dL (Negative) 04/10/18 01:07 Urine Glucose (UA) Neg mg/dL (Negative) 04/10/18 01:07 Urine Ketones Neg mg/dL (Negative) 04/10/18 01:07 Urine Blood Lg (Negative) 04/10/18 01:07 Urine Nitrite Neg (Negative) 04/10/18 01:07 Urine Bilirubin Neg (Negative) 04/10/18 01:07 Urine Urobilinogen < 2.0 mg/dL (<2.0) 04/10/18 01:07 Ur Leukocyte Esterase Neg (Negative) 04/10/18 01:07 Urine WBC (Auto) 1.0 /HPF (0.0-6.0) 04/10/18 01:07 Urine RBC (Auto) 9.0 /HPF (0.0-6.0) 04/10/18 01:07 U Epithel Cells (Auto) < 1.0 /HPF (0-13.0) 04/10/18 01:07 Urine Mucus Few /HPF 04/10/18 01:07 Levetiracetam 25.2 mcg/mL 04/12/18 20:37 Hepatitis A IgM Ab Non-reactive (NonReactive) 04/14/18 14:56 Hep Bs Antigen Non-reactive (Negative) 04/14/18 14:56 Hep B Core IgM Ab Non-reactive (NonReactive) 04/14/18 14:56 Hepatitis C Antibody Non-reactive (NonReactive) 04/14/18 14:56 Influenza A (Rapid) Negative (Negative) 04/11/18 15:08 Influenza B (Rapid) Negative (Negative) 04/11/18 15:08 Nutrition/Malnutrition Assess - Dietary Evaluation Nutrition/Malnutrition Findings: Nutrition Notes Start: 04/11/18 10:20 Freq: Status: Active Protocol: Document 04/17/18 13:49 CP (Rec: 04/17/18 13:53 CP [id number]) Co-Sign 04/17/18 13:49 NHALL Nutrition Notes Initial or Follow up Brief Note Current Diet TF - Vital High Protein at 60ml/hr Subjective/Other Information Vital High Protein not infusing at time of visit (09: 45). Vital AF 1.2 infusing at 65mL/hr. Spoke with RN to start Vital HP. Nutrition Intervention Follow-Up By: 04/18/18 Additional Comments F/U: TF formula change to Vital High Protein
[2018-04-18 12:16] LABS: Albumin 3.7 g/dL (3.9-5); Bilirubin,Direct 0.3 mg/dL (0-0.2)
[2018-04-18] MEDS: APRESOLINE IV PRN (12:45)
[2018-04-18] MEDS: SODIUM CHLORIDE FLUSH SYRINGE 10 ML IV SCH ×2 (13:09→22:03)
[2018-04-19] MEDS: HumaLOG SUB-Q SCH ×4 (00:53→17:51)
[2018-04-19] MEDS: FLAGYL 500 MG/100 ML 500 MG/100 ML BAG IV SCH (05:55)
[2018-04-19] MEDS: DUONEB *Not for PRN Use IH SCH ×3 (08:44→19:31)
--- NOTE | 2018-04-19 09:15 | Progress Note ---
Assessment and Plan Assessment and plan: Assessment and plan Acute Hypokalemia replete and recheck Aspiration Pneumonia continue Abx ID on board DM II with s/p hypoglycemia monitor Acute Hypoxic resp failure s/p intubation pulm on board aspiration precautions at all times Toxic metabolic encephalopathy neuro on board Seizure, new onset continue Keppra seizure precautions Critical Illness Myopathy supportive care Thrombocytopenia monitor bleeding precautions at all times Full code status Pt remains critically sick and at risk of morbidity and mortality including loss of life and body parts Disposition Plan: per hospital course Total Time Spent with Patient (Minutes): 30 mins History Interval history: Brief Hospital course: 78-year-old male patient with significant history of hypertension diabetes coronary artery disease was admitted through emergency room with history of unresponsivenessat home for unknown. At that time he had hypoglycemia and seizure activity,Patient was unable to protect his airway and was intubated on ventilatory support admitted to ICU, Subjective: Pt seen and exam, remains intubated. No family at bedside. Overnight events reviewed with RN by bedside. Hospitalist Physical - Constitutional Vitals: Temp Pulse Resp BP Pulse Ox 98.5 F 68 18 119/60 99 04/19/18 08:00 04/19/18 09:00 04/19/18 09:00 04/19/18 08:44 04/19/18 08:44 General appearance: Present: no acute distress, obese (Morbidly obese), other (intubated on vent) - EENT Eyes: Present: PERRL ENT: other (orally intubated and vented, ) - Neck Neck: Present: supple, normal ROM - Respiratory Respiratory: bilateral: diminished, rhonchi, negative: rales, wheezing - Cardiovascular Rhythm: regular Heart Sounds: Present: S1 & S2 - Extremities Extremities: pulses symmetrical, normal temperature, normal color - Abdominal General gastrointestinal: soft, non-distended, normal bowel sounds - Integumentary Integumentary: Present: clear, warm, dry - Psychiatric Psychiatric: other (unable to assess, pt intubated and on the vent,. ) - Neurologic Neurologic: other (unable to assess, pt intubated and on the vent) - Allied Health Allied health notes reviewed: nursing, social work, case management Results - Labs CBC & Chem 7: 04/12/18 04:00 04/17/18 14:20 Labs: Laboratory Last Values WBC 8.1 K/mm3 (4.5-11.0) 04/12/18 04:00 RBC 3.98 M/mm3 (3.65-5.03) 04/12/18 04:00 Hgb 12.0 gm/dl (11.8-15.2) 04/12/18 04:00 Hct 34.9 % (35.5-45.6) L 04/12/18 04:00 MCV 88 fl (84-94) 04/12/18 04:00 MCH 30 pg (28-32) 04/12/18 04:00 MCHC 35 % (32-34) H 04/12/18 04:00 RDW 14.4 % (13.2-15.2) 04/12/18 04:00 Plt Count 128 K/mm3 (140-440) L 04/12/18 04:00 Lymph % (Auto) 21.7 % (13.4-35.0) 04/12/18 04:00 [place] % (Auto) 10.6 % (0.0-7.3) H 04/12/18 04:00 Eos % (Auto) 1.2 % (0.0-4.3) 04/12/18 04:00 Baso % (Auto) 0.7 % (0.0-1.8) 04/12/18 04:00 Lymph # 1.8 K/mm3 (1.2-5.4) 04/12/18 04:00 [place] # 0.9 K/mm3 (0.0-0.8) H 04/12/18 04:00 Eos # 0.1 K/mm3 (0.0-0.4) 04/12/18 04:00 Baso # 0.1 K/mm3 (0.0-0.1) 04/12/18 04:00 Seg Neutrophils % 65.8 % (40.0-70.0) 04/12/18 04:00 Seg Neutrophils # 5.3 K/mm3 (1.8-7.7) 04/12/18 04:00 APTT 24.8 Sec. (24.2-36.6) 04/09/18 23:16 POC ABG pH 7.497 (7.35-7.45) H 04/19/18 04:46 POC ABG pCO2 42.9 (35-45) 04/19/18 04:46 POC ABG pO2 119 (80-105) H 04/19/18 04:46 POC ABG HCO3 33.2 04/19/18 04:46 POC ABG Total CO2 35 04/19/18 04:46 POC ABG O2 Sat 99 04/19/18 04:46 POC ABG Base Excess 10 04/19/18 04:46 FiO2 30 % 04/19/18 04:46 Sodium 137 mmol/L (137-145) 04/17/18 14:20 Potassium 3.4 mmol/L (3.6-5.0) L 04/17/18 14:20 Chloride 93.6 mmol/L (98-107) L 04/17/18 14:20 Carbon Dioxide 33 mmol/L (22-30) H 04/17/18 14:20 Anion Gap 14 mmol/L 04/17/18 14:20 BUN 9 mg/dL (9-20) 04/17/18 14:20 Creatinine 0.8 mg/dL (0.8-1.5) 04/17/18 14:20 Estimated GFR > 60 ml/min 04/17/18 14:20 BUN/Creatinine Ratio 11 % 04/17/18 14:20 Glucose 305 mg/dL (75-100) H 04/17/18 14:20 POC Glucose 323 (70-105) H 04/19/18 05:26 Hemoglobin A1c 6.4 % (4-6) H 04/11/18 04:28 Lactic Acid 1.70 mmol/L (0.7-2.0) 04/10/18 02:47 Calcium 8.6 mg/dL (8.4-10.2) 04/17/18 14:20 Phosphorus 2.00 mg/dL (2.5-4.5) L 04/12/18 04:00 Magnesium 2.30 mg/dL (1.7-2.3) 04/12/18 04:00 Total Bilirubin 1.20 mg/dL (0.1-1.2) 04/18/18 11:00 Direct Bilirubin 0.3 mg/dL (0-0.2) H 04/18/18 11:00 Indirect Bilirubin 0.9 mg/dL 04/18/18 11:00 AST 87 units/L (5-40) H 04/18/18 11:00 ALT 39 units/L (7-56) 04/18/18 11:00 Alkaline Phosphatase 59 units/L (35-129) 04/18/18 11:00 Total Creatine Kinase 2247 units/L (55-170) H 04/14/18 05:00 CK-MB (CK-2) 30.0 ng/mL (0.0-4.0) H 04/10/18 10:37 CK-MB (CK-2) Rel Index 0.3 (0-4) 04/10/18 10:37 Troponin T < 0.010 ng/mL (0.00-0.029) 04/10/18 10:37 C-Reactive Protein 7.20 mg/dL (0.00-1.30) H 04/11/18 13:43 Total Protein 6.8 g/dL (6.3-8.2) 04/18/18 11:00 Albumin 3.7 g/dL (3.9-5) L 04/18/18 11:00 Albumin/Globulin Ratio 1.2 % 04/18/18 11:00 Urine Color Yellow (Yellow) 04/10/18 01:07 Urine Turbidity Clear (Clear) 04/10/18 01:07 Urine pH 5.0 (5.0-7.0) 04/10/18 01:07 Ur Specific [place] 1.019 (1.003-1.030) 04/10/18 01:07 Urine Protein 100 mg/dl mg/dL (Negative) 04/10/18 01:07 Urine Glucose (UA) Neg mg/dL (Negative) 04/10/18 01:07 Urine Ketones Neg mg/dL (Negative) 04/10/18 01:07 Urine Blood Lg (Negative) 04/10/18 01:07 Urine Nitrite Neg (Negative) 04/10/18 01:07 Urine Bilirubin Neg (Negative) 04/10/18 01:07 Urine Urobilinogen < 2.0 mg/dL (<2.0) 04/10/18 01:07 Ur Leukocyte Esterase Neg (Negative) 04/10/18 01:07 Urine WBC (Auto) 1.0 /HPF (0.0-6.0) 04/10/18 01:07 Urine RBC (Auto) 9.0 /HPF (0.0-6.0) 04/10/18 01:07 U Epithel Cells (Auto) < 1.0 /HPF (0-13.0) 04/10/18 01:07 Urine Mucus Few /HPF 04/10/18 01:07 Levetiracetam 25.2 mcg/mL 04/12/18 20:37 Hepatitis A IgM Ab Non-reactive (NonReactive) 04/14/18 14:56 Hep Bs Antigen Non-reactive (Negative) 04/14/18 14:56 Hep B Core IgM Ab Non-reactive (NonReactive) 04/14/18 14:56 Hepatitis C Antibody Non-reactive (NonReactive) 04/14/18 14:56 Influenza A (Rapid) Negative (Negative) 04/11/18 15:08 Influenza B (Rapid) Negative (Negative) 04/11/18 15:08 - Imaging and Cardiology Chest x-ray: report reviewed CT Scan - head: report reviewed MRI - head: report reviewed Nutrition/Malnutrition Assess - Dietary Evaluation Nutrition/Malnutrition Findings: Nutrition Notes Start: 04/11/18 10:20 Freq: Status: Active Protocol: Document 04/18/18 12:18 CP (Rec: 04/18/18 12:19 CP [id number]) Co-Sign 04/18/18 12:18 LP Nutrition Notes Initial or Follow up Brief Note Current Diet TF - Vital High Protein at 60ml/hr Subjective/Other Information Vital High Protein infusing at time of visit. Per RN, pt tolerating TF. Nutrition Intervention Follow-Up By: 04/25/18 Additional Comments F/U: TF tolerance
[2018-04-19] MEDS: LOVENOX SUB-Q SCH (09:23)
[2018-04-19] MEDS: KEPPRA PO SCH (09:23)
[2018-04-19] MEDS: PEPCID PO SCH ×2 (09:23→23:47)
[2018-04-19] MEDS: SODIUM CHLORIDE FLUSH SYRINGE 10 ML IV SCH (09:24)
--- NOTE | 2018-04-19 09:59 | Progress Note ---
Assessment and Plan Acute Hypoxemic Respiratory Failure on MVS fro airway protection/seizures New Onset Seizures (presumed secondary to Hypoglycemia) Acute Encephalopathy (Toxic -Metabolic) Diabetes Type II, hypoglycemia Rhabdomyolysis Obesity HTN Possible JOE Hyponatremia (mild) Hypomagnesemia Leucocytosis h/o Alcohol use disorder -VAP bundle addressed -Anti-seizure medications -Analgesia and agitation management. -VTE and stress ulcer prophylaxis -AEDs (Keppra) -Enteric nutrition with glycemic control (sub-optimal control at this time, increase lantus dosing) -Target blood glucose level 140-180mg/dL -Avoid hypoglycemia -Critical care bundles addressed -Aspiration precautions - Wean supplemental oxygen to keep O2 sats > 90% -Lung protective strategies - Bronchodilators per protocol - Daily SAT's and SBT - Replace electrolytes as indicated If his encephalopathy persists, precluding extubation will need to have discus sions with the family re tracheostomy CONDITION: CRITICAL PROGNOSIS: GUARDED CODE STATUS: FULL CODE The high probability of a clinically significant, sudden or life-threatening deterioration of the [respiratory, renal, endocrine, neurology] system(s) required my full and direct attention, intervention and personal management. The aggregate critical care time was [35] minutes without overlap. Time includes spent on; [x] Data Review and interpretation [x] Patient assessment and monitoring of vital signs [x] Documentation [x] Medication orders and management Subjective Date of service: 04/19/18 Principal diagnosis: Ac Hypoxemic Resp Failure; Seizures; Encephalopathy; DM II; Rhabdomyolysis Interval history: Patient is seen today for: Acute Hypoxemic Respiratory Failure; New Onset Seizures (presumed secondary to Hypoglycemia); Acute Encephalopathy (Toxic - Metabolic); Diabetes Type II; Rhabdomyolysis Seen and examined at bedside; 24hour events reviewed; nursing and respiratory care staff consulted; no adverse overnight events reported to me; resting peacefully in bed; remains encephalopathic, though he tolerates SBT trials. Remains on MVS, no fevers documented overnight. Episodes of hypertension associated with weaning trials, otherwise remains normotensive. Discussed on ICU-IDT bedside rounds Objective Vital Signs - 12hr 04/18/18 04/18/18 04/18/18 22:01 22:05 23:00 Temperature Pulse Rate 80 74 Pulse Rate [ Bilateral Throughout] Pulse Rate [ From Monitor] Respiratory 20 17 Rate Respiratory Rate [Bilateral Throughout] Blood Pressure 114/59 140/103 O2 Sat by Pulse 99 100 100 Oximetry 04/18/18 04/18/18 04/19/18 23:21 23:31 00:00 Temperature 98.9 F Pulse Rate 94 H Pulse Rate [ Bilateral Throughout] Pulse Rate [ From Monitor] Respiratory 23 Rate Respiratory Rate [Bilateral Throughout] Blood Pressure 140/103 O2 Sat by Pulse 100 100 Oximetry 04/19/18 04/19/18 04/19/18 00:01 00:08 01:00 Temperature Pulse Rate 84 71 83 Pulse Rate [ Bilateral Throughout] Pulse Rate [ From Monitor] Respiratory 17 11 L Rate Respiratory Rate [Bilateral Throughout] Blood Pressure 140/103 162/118 O2 Sat by Pulse 100 100 100 Oximetry 04/19/18 04/19/18 04/19/18 02:00 02:01 03:00 Temperature Pulse Rate 84 70 Pulse Rate [ Bilateral Throughout] Pulse Rate [ From Monitor] Respiratory 15 18 Rate Respiratory Rate [Bilateral Throughout] Blood Pressure 162/118 112/48 O2 Sat by Pulse 100 100 99 Oximetry 04/19/18 04/19/18 04/19/18 03:19 04:00 04:43 Temperature 98.7 F Pulse Rate 83 67 Pulse Rate [ Bilateral Throughout] Pulse Rate [ From Monitor] Respiratory 16 Rate Respiratory Rate [Bilateral Throughout] Blood Pressure 108/58 108/58 O2 Sat by Pulse 100 100 Oximetry 04/19/18 04/19/18 04/19/18 05:01 06:00 07:01 Temperature Pulse Rate 75 71 86 Pulse Rate [ Bilateral Throughout] Pulse Rate [ From Monitor] Respiratory 16 15 21 Rate Respiratory Rate [Bilateral Throughout] Blood Pressure 123/48 138/72 150/81 O2 Sat by Pulse 99 98 100 Oximetry 04/19/18 04/19/18 04/19/18 08:00 08:01 08:44 Temperature 98.5 F Pulse Rate 65 65 Pulse Rate [ 64 Bilateral Throughout] Pulse Rate [ 65 From Monitor] Respiratory 12 12 Rate Respiratory 12 Rate [Bilateral Throughout] Blood Pressure 119/60 119/60 O2 Sat by Pulse 100 100 99 Oximetry 04/19/18 09:00 Temperature Pulse Rate Pulse Rate [ 68 Bilateral Throughout] Pulse Rate [ From Monitor] Respiratory Rate Respiratory 18 Rate [Bilateral Throughout] Blood Pressure O2 Sat by Pulse Oximetry Constitutional: no acute distress, other (Elderly looking AAM, normocephalic and atraumatic with mildly increased respiratory effort on MVS) Eyes: non-icteric ENT: oropharynx moist, other (ETT 23 cm STEPHANIE) Neck: supple, no lymphadenopathy, no JVD, other (large neck circumference) Effort: mildly labored Ascultation: Bilateral: diminished breath sounds, rhonchi Percussion: Bilateral: not dull Cardiovascular: regular rate and rhythm Gastrointestinal: normoactive bowel sounds, soft, non-tender, non-distended, oth er (protuberant) Integumentary: normal Extremities: no cyanosis, no edema, pulses normal, no ischemia or petechiae Neurologic: pupils equal and round, unable to assess Psychiatric: other (unable to assess) CBC and BMP: 04/12/18 04:00 04/17/18 14:20 ABG, PT/INR, D-dimer: ABG POC ABG pH 7.497 (7.35-7.45) H 04/19/18 04:46 POC ABG pCO2 42.9 (35-45) 04/19/18 04:46 POC ABG pO2 119 (80-105) H 04/19/18 04:46 POC ABG HCO3 33.2 04/19/18 04:46 POC ABG Total CO2 35 04/19/18 04:46 POC ABG O2 Sat 99 04/19/18 04:46 Abnormal lab findings: Abnormal Labs 04/09/18 04/09/18 04/09/18 23:16 23:16 23:16 WBC 13.6 H Hct MCHC Plt Count Lymph % (Auto) 9.4 L [place] % (Auto) Lymph # [place] # Seg Neutrophils % 87.3 H Seg Neutrophils # 11.9 H POC ABG pH POC ABG pCO2 POC ABG pO2 Sodium 132 L Potassium Chloride 92.7 L Carbon Dioxide BUN Glucose 143 H POC Glucose Hemoglobin A1c Lactic Acid 2.10 H* Calcium Phosphorus Magnesium Total Bilirubin 2.20 H Direct Bilirubin AST 107 H Total Creatine Kinase CK-MB (CK-2) C-Reactive Protein Total Protein Albumin 04/10/18 04/10/18 04/10/18 00:38 00:55 01:13 WBC Hct MCHC Plt Count Lymph % (Auto) [place] % (Auto) Lymph # [place] # Seg Neutrophils % Seg Neutrophils # POC ABG pH POC ABG pCO2 POC ABG pO2 Sodium Potassium Chloride Carbon Dioxide BUN Glucose POC Glucose 117 H 121 H Hemoglobin A1c Lactic Acid 2.10 H* Calcium Phosphorus Magnesium Total Bilirubin Direct Bilirubin AST Total Creatine Kinase CK-MB (CK-2) C-Reactive Protein Total Protein Albumin 04/10/18 04/10/18 04/10/18 02:10 03:51 04:07 WBC 14.0 H Hct MCHC Plt Count Lymph % (Auto) 7.5 L [place] % (Auto) Lymph # 1.1 L [place] # 1.0 H Seg Neutrophils % 84.9 H Seg Neutrophils # 11.8 H POC ABG pH POC ABG pCO2 POC ABG pO2 Sodium Potassium Chloride Carbon Dioxide BUN Glucose POC Glucose 153 H 158 H Hemoglobin A1c Lactic Acid Calcium Phosphorus Magnesium Total Bilirubin Direct Bilirubin AST Total Creatine Kinase CK-MB (CK-2) C-Reactive Protein Total Protein Albumin 04/10/18 04/10/18 04/10/18 04:07 06:56 09:48 WBC Hct MCHC Plt Count Lymph % (Auto) [place] % (Auto) Lymph # [place] # Seg Neutrophils % Seg Neutrophils # POC ABG pH POC ABG pCO2 POC ABG pO2 Sodium 130 L Potassium Chloride 93.4 L Carbon Dioxide BUN Glucose 180 H POC Glucose 251 H 245 H Hemoglobin A1c Lactic Acid Calcium 7.9 L D Phosphorus Magnesium Total Bilirubin Direct Bilirubin AST Total Creatine Kinase 7857 H CK-MB (CK-2) 34.3 H C-Reactive Protein Total Protein Albumin 04/10/18 04/10/18 04/10/18 10:37 12:44 17:31 WBC Hct MCHC Plt Count Lymph % (Auto) [place] % (Auto) Lymph # [place] # Seg Neutrophils % Seg Neutrophils # POC ABG pH POC ABG pCO2 45.6 H POC ABG pO2 374 H Sodium Potassium Chloride Carbon Dioxide BUN Glucose POC Glucose 348 H Hemoglobin A1c Lactic Acid Calcium Phosphorus Magnesium Total Bilirubin Direct Bilirubin AST Total Creatine Kinase 9880 H CK-MB (CK-2) 30.0 H C-Reactive Protein Total Protein Albumin 04/10/18 04/11/18 04/11/18 23:36 03:52 04:28 WBC 12.2 H Hct MCHC Plt Count 132 L Lymph % (Auto) [place] % (Auto) 10.2 H Lymph # [place] # 1.2 H Seg Neutrophils % 75.1 H Seg Neutrophils # 9.1 H POC ABG pH 7.495 H POC ABG pCO2 32.4 L POC ABG pO2 Sodium Potassium Chloride Carbon Dioxide BUN Glucose POC Glucose 148 H Hemoglobin A1c Lactic Acid Calcium Phosphorus Magnesium Total Bilirubin Direct Bilirubin AST Total Creatine Kinase CK-MB (CK-2) C-Reactive Protein Total Protein Albumin 04/11/18 04/11/18 04/11/18 04:28 04:28 05:22 WBC Hct MCHC Plt Count Lymph % (Auto) [place] % (Auto) Lymph # [place] # Seg Neutrophils % Seg Neutrophils # POC ABG pH POC ABG pCO2 POC ABG pO2 Sodium 133 L Potassium 3.5 L Chloride 95.1 L Carbon Dioxide BUN 7 L Glucose 206 H POC Glucose 178 H Hemoglobin A1c 6.4 H Lactic Acid Calcium 7.7 L Phosphorus 1.80 L Magnesium 1.50 L Total Bilirubin 4.10 H Direct Bilirubin AST 168 H Total Creatine Kinase 9352 H CK-MB (CK-2) C-Reactive Protein Total Protein Albumin 3.4 L 04/11/18 04/11/18 04/11/18 11:28 13:43 17:30 WBC Hct MCHC Plt Count Lymph % (Auto) [place] % (Auto) Lymph # [place] # Seg Neutrophils % Seg Neutrophils # POC ABG pH POC ABG pCO2 POC ABG pO2 Sodium Potassium Chloride Carbon Dioxide BUN Glucose POC Glucose 196 H 142 H Hemoglobin A1c Lactic Acid Calcium Phosphorus Magnesium Total Bilirubin Direct Bilirubin AST Total Creatine Kinase CK-MB (CK-2) C-Reactive Protein 7.20 H Total Protein Albumin 04/11/18 04/11/18 04/12/18 18:59 23:23 04:00 WBC Hct MCHC Plt Count Lymph % (Auto) [place] % (Auto) Lymph # [place] # Seg Neutrophils % Seg Neutrophils # POC ABG pH 7.489 H POC ABG pCO2 34.5 L POC ABG pO2 Sodium Potassium 3.3 L Chloride Carbon Dioxide BUN 6 L Glucose 151 H POC Glucose 129 H Hemoglobin A1c Lactic Acid Calcium 7.3 L Phosphorus 2.00 L Magnesium Total Bilirubin 2.80 H Direct Bilirubin AST 121 H Total Creatine Kinase 5177 H CK-MB (CK-2) C-Reactive Protein Total Protein 5.9 L Albumin 3.1 L 04/12/18 04/12/18 04/12/18 04:00 04:04 05:21 WBC Hct 34.9 L MCHC 35 H Plt Count 128 L Lymph % (Auto) [place] % (Auto) 10.6 H Lymph # [place] # 0.9 H Seg Neutrophils % Seg Neutrophils # POC ABG pH 7.454 H POC ABG pCO2 POC ABG pO2 Sodium Potassium Chloride Carbon Dioxide BUN Glucose POC Glucose 136 H Hemoglobin A1c Lactic Acid Calcium Phosphorus Magnesium Total Bilirubin Direct Bilirubin AST Total Creatine Kinase CK-MB (CK-2) C-Reactive Protein Total Protein Albumin 04/12/18 04/13/18 04/13/18 11:23 00:21 04:57 WBC Hct MCHC Plt Count Lymph % (Auto) [place] % (Auto) Lymph # [place] # Seg Neutrophils % Seg Neutrophils # POC ABG pH POC ABG pCO2 34.7 L POC ABG pO2 125 H Sodium Potassium Chloride Carbon Dioxide BUN Glucose POC Glucose 166 H 143 H Hemoglobin A1c Lactic Acid Calcium Phosphorus Magnesium Total Bilirubin Direct Bilirubin AST Total Creatine Kinase CK-MB (CK-2) C-Reactive Protein Total Protein Albumin 04/13/18 04/13/18 04/13/18 05:02 05:02 12:16 WBC Hct MCHC Plt Count Lymph % (Auto) [place] % (Auto) Lymph # [place] # Seg Neutrophils % Seg Neutrophils # POC ABG pH POC ABG pCO2 POC ABG pO2 Sodium Potassium Chloride Carbon Dioxide BUN Glucose POC Glucose 161 H 170 H Hemoglobin A1c Lactic Acid Calcium Phosphorus Magnesium Total Bilirubin Direct Bilirubin AST Total Creatine Kinase 3456 H CK-MB (CK-2) C-Reactive Protein Total Protein Albumin 04/13/18 04/13/18 04/14/18 18:52 23:09 04:35 WBC Hct MCHC Plt Count Lymph % (Auto) [place] % (Auto) Lymph # [place] # Seg Neutrophils % Seg Neutrophils # POC ABG pH 7.467 H POC ABG pCO2 POC ABG pO2 Sodium Potassium Chloride Carbon Dioxide BUN Glucose POC Glucose 196 H 219 H Hemoglobin A1c Lactic Acid Calcium Phosphorus Magnesium Total Bilirubin Direct Bilirubin AST Total Creatine Kinase CK-MB (CK-2) C-Reactive Protein Total Protein Albumin 04/14/18 04/14/18 04/14/18 05:00 05:26 11:20 WBC Hct MCHC Plt Count Lymph % (Auto) [place] % (Auto) Lymph # [place] # Seg Neutrophils % Seg Neutrophils # POC ABG pH POC ABG pCO2 POC ABG pO2 Sodium Potassium Chloride Carbon Dioxide BUN Glucose POC Glucose 249 H 260 H Hemoglobin A1c Lactic Acid Calcium Phosphorus Magnesium Total Bilirubin Direct Bilirubin AST Total Creatine Kinase 2247 H CK-MB (CK-2) C-Reactive Protein Total Protein Albumin 04/14/18 04/14/18 04/14/18 17:04 17:51 23:53 WBC Hct MCHC Plt Count Lymph % (Auto) [place] % (Auto) Lymph # [place] # Seg Neutrophils % Seg Neutrophils # POC ABG pH POC ABG pCO2 POC ABG pO2 79 L Sodium Potassium Chloride Carbon Dioxide BUN Glucose POC Glucose 284 H 203 H Hemoglobin A1c Lactic Acid Calcium Phosphorus Magnesium Total Bilirubin Direct Bilirubin AST Total Creatine Kinase CK-MB (CK-2) C-Reactive Protein Total Protein Albumin 04/15/18 04/15/18 04/15/18 04:24 05:26 12:56 WBC Hct MCHC Plt Count Lymph % (Auto) [place] % (Auto) Lymph # [place] # Seg Neutrophils % Seg Neutrophils # POC ABG pH POC ABG pCO2 45.4 H POC ABG pO2 78 L Sodium Potassium Chloride Carbon Dioxide BUN Glucose POC Glucose 194 H 200 H Hemoglobin A1c Lactic Acid Calcium Phosphorus Magnesium Total Bilirubin Direct Bilirubin AST Total Creatine Kinase CK-MB (CK-2) C-Reactive Protein Total Protein Albumin 04/15/18 04/15/18 04/16/18 17:46 23:57 05:08 WBC Hct MCHC Plt Count Lymph % (Auto) [place] % (Auto) Lymph # [place] # Seg Neutrophils % Seg Neutrophils # POC ABG pH POC ABG pCO2 POC ABG pO2 Sodium Potassium Chloride Carbon Dioxide BUN Glucose POC Glucose 118 H 204 H 221 H Hemoglobin A1c Lactic Acid Calcium Phosphorus Magnesium Total Bilirubin Direct Bilirubin AST Total Creatine Kinase CK-MB (CK-2) C-Reactive Protein Total Protein Albumin 04/16/18 04/16/18 04/16/18 05:16 12:23 13:07 WBC Hct MCHC Plt Count Lymph % (Auto) [place] % (Auto) Lymph # [place] # Seg Neutrophils % Seg Neutrophils # POC ABG pH 7.456 H POC ABG pCO2 46.7 H POC ABG pO2 Sodium Potassium Chloride Carbon Dioxide BUN Glucose POC Glucose 271 H Hemoglobin A1c Lactic Acid Calcium Phosphorus Magnesium Total Bilirubin Direct Bilirubin AST Total Creatine Kinase CK-MB (CK-2) C-Reactive Protein Total Protein Albumin 04/16/18 04/17/18 04/17/18 19:14 00:08 05:46 WBC Hct MCHC Plt Count Lymph % (Auto) [place] % (Auto) Lymph # [place] # Seg Neutrophils % Seg Neutrophils # POC ABG pH POC ABG pCO2 POC ABG pO2 Sodium Potassium Chloride Carbon Dioxide BUN Glucose POC Glucose 221 H 238 H 274 H Hemoglobin A1c Lactic Acid Calcium Phosphorus Magnesium Total Bilirubin Direct Bilirubin AST Total Creatine Kinase CK-MB (CK-2) C-Reactive Protein Total Protein Albumin 04/17/18 04/17/18 04/17/18 13:50 13:59 14:20 WBC Hct MCHC Plt Count Lymph % (Auto) [place] % (Auto) Lymph # [place] # Seg Neutrophils % Seg Neutrophils # POC ABG pH 7.474 H POC ABG pCO2 POC ABG pO2 Sodium Potassium 3.4 L Chloride 93.6 L Carbon Dioxide 33 H BUN Glucose 305 H POC Glucose 315 H Hemoglobin A1c Lactic Acid Calcium Phosphorus Magnesium Total Bilirubin Direct Bilirubin AST Total Creatine Kinase CK-MB (CK-2) C-Reactive Protein Total Protein Albumin 04/17/18 04/17/18 04/18/18 17:04 23:26 04:20 WBC Hct MCHC Plt Count Lymph % (Auto) [place] % (Auto) Lymph # [place] # Seg Neutrophils % Seg Neutrophils # POC ABG pH 7.473 H POC ABG pCO2 POC ABG pO2 Sodium Potassium Chloride Carbon Dioxide BUN Glucose POC Glucose 280 H 284 H Hemoglobin A1c Lactic Acid Calcium Phosphorus Magnesium Total Bilirubin Direct Bilirubin AST Total Creatine Kinase CK-MB (CK-2) C-Reactive Protein Total Protein Albumin 04/18/18 04/18/18 04/18/18 05:14 08:32 11:00 WBC Hct MCHC Plt Count Lymph % (Auto) [place] % (Auto) Lymph # [place] # Seg Neutrophils % Seg Neutrophils # POC ABG pH POC ABG pCO2 POC ABG pO2 Sodium Potassium Chloride Carbon Dioxide BUN Glucose POC Glucose 286 H 296 H Hemoglobin A1c Lactic Acid Calcium Phosphorus Magnesium Total Bilirubin Direct Bilirubin 0.3 H AST 87 H Total Creatine Kinase CK-MB (CK-2) C-Reactive Protein Total Protein Albumin 3.7 L 04/18/18 04/18/18 04/19/18 12:03 18:15 00:08 WBC Hct MCHC Plt Count Lymph % (Auto) [place] % (Auto) Lymph # [place] # Seg Neutrophils % Seg Neutrophils # POC ABG pH POC ABG pCO2 POC ABG pO2 Sodium Potassium Chloride Carbon Dioxide BUN Glucose POC Glucose 353 H 327 H 331 H Hemoglobin A1c Lactic Acid Calcium Phosphorus Magnesium Total Bilirubin Direct Bilirubin AST Total Creatine Kinase CK-MB (CK-2) C-Reactive Protein Total Protein Albumin 04/19/18 04/19/18 04:46 05:26 WBC Hct MCHC Plt Count Lymph % (Auto) [place] % (Auto) Lymph # [place] # Seg Neutrophils % Seg Neutrophils # POC ABG pH 7.497 H POC ABG pCO2 POC ABG pO2 119 H Sodium Potassium Chloride Carbon Dioxide BUN Glucose POC Glucose 323 H Hemoglobin A1c Lactic Acid Calcium Phosphorus Magnesium Total Bilirubin Direct Bilirubin AST Total Creatine Kinase CK-MB (CK-2) C-Reactive Protein Total Protein Albumin Allied health notes reviewed: RT
[2018-04-19] MEDS ORDERED: LANTUS SUB-Q SCH (10:00)
--- NOTE | 2018-04-19 11:26 | Progress Note ---
Assessment and Plan Cultures: Blood culture 04/09/2018 no growth so far Urine culture 04/10/2018 no growth so far Sputum culture 04/10/2018 upper respiratory mikayla. Assessment: 78 y/o male with history of hypertension, diabetes, coronary artery disease; admitted on 04/09/2018 due to be found unresponsive at home when the family has not heard from him. EMS was called, his blood sugar was undetectable: 1) Sepsis: resolved. Etiology most likely aspiration pneumonia. Blood culture 04/11/2018 no growth so far. UA neg. CRP=7 2) Presumed aspiration versus CAP: CXR focal infiltrate RLL. Sputum culture 04/10/2018 upper respiratory mikayla. Influenza neg. 3) Acute respiratory failure:on vent, from encephalopathy/pneumonia 4) Generalized seizures: from hypoglycemia, resolved 5) Elevated LFTs: better; from sepsis or other etiologies? rhabdo, better. Viral hepatitis serology all negative. US no visualized GB. LFTs better 6) Acute encephalopathy: post seizures/ischemia. somnolent 7) Rhabdomyolysis: better Recommendations: - completed ceftriaxone D5 of 5, azithromycin D5 of 5 on 04/17/2018 - continue flagyl D5 of 5 to cover CAP versus aspiration pneumonia - monitor mentation Will sign off Tiffanie Crowe MD Infectious Diseases Consulting Psychiatrist [facility] M [phone] O [phone] Subjective Date of service: 04/19/18 Principal diagnosis: Ac Hypoxemic Resp Failure; Seizures; Encephalopathy; DM II; Rhabdomyolysis Interval history: Remains intubated on now on BIPAP, off sedation, open eyes, no fever x 5 days ROS: unable to obtain Objective - Exam Narrative Exam: General appearance: open eyes, intubated on BIPAP in NAD Eyes: anicteric sclerae, moist conjunctivae; no lid-lag; PERRLA HENT: Atraumatic; oropharynx ETT/NGT Neck: Trachea midline; supple, no thyromegaly or lymphadenopathy Lungs: griffin coarse BS CV:bradycardic Abdomen: Soft, non-tender; no masses or hepatosplenomegaly Extremities: No peripheral edema or extremity lymphadenopathy Skin: Normal temperature, turgor and texture; no rash, ulcers or subcutaneous nodules Psych: somnolent Neuro: somnolent Condom cath - Constitutional Vitals: Vital Signs Temp Pulse Resp BP Pulse Ox 98.5 F 60 18 109/67 100 04/19/18 08:00 04/19/18 10:00 04/19/18 10:00 04/19/18 10:00 04/19/18 10:00 Temperature -Last 24 Hours Temperature 98.5 F Temperature 98.7 F Temperature 98.9 F Temperature 99.2 F Temperature 99.1 F Temperature 99.8 F - Labs CBC & Chem 7: 04/12/18 04:00 04/17/18 14:20 Labs: Abnormal lab results 04/18/18 04/18/18 04/18/18 Range/Units 11:00 12:03 18:15 POC ABG pH (7.35-7.45) POC ABG pO2 (80-105) POC Glucose 353 H 327 H (70-105) Direct Bilirubin 0.3 H (0-0.2) mg/dL AST 87 H (5-40) units/L Albumin 3.7 L (3.9-5) g/dL 04/19/18 04/19/18 04/19/18 Range/Units 00:08 04:46 05:26 POC ABG pH 7.497 H (7.35-7.45) POC ABG pO2 119 H (80-105) POC Glucose 331 H 323 H (70-105) Direct Bilirubin (0-0.2) mg/dL AST (5-40) units/L Albumin (3.9-5) g/dL
[2018-04-19] MEDS ORDERED: LANTUS SUB-Q ONE (13:00)
[2018-04-19] MEDS ORDERED: SIMPLE SYRUP FEEDTUBE PRN ×2 (14:17)
[2018-04-19] MEDS ORDERED: SODIUM BICARBONATE FEEDTUBE PRN (14:17)
[2018-04-19] MEDS ORDERED: PANCREAZE DR 10,500 UNIT FEEDTUBE PRN (14:17)
[2018-04-19] MEDS: HumuLIN R SUB-Q SCH ×2 (15:18→23:46)
[2018-04-20 04:24] LABS: Hematocrit 34.7 % (35.5-45.6); Mean Corpuscular HGB Conc 35 % (32-34); Mean Corpuscular Volume 88 fl (84-94); Platelet Count 166 K/mm3 (140-440); Red Blood Count 3.94 M/mm3 (3.65-5.03); Red Cell Distribution Width 14.7 % (13.2-15.2)
[2018-04-20 04:40] LABS: BUN/Creatinine Ratio 18; Blood Urea Nitrogen 14 mg/dL (9-20); Calcium 8.5 mg/dL (8.4-10.2); Hemolysis Index 2
[2018-04-20] MEDS: KEPPRA PO SCH ×3 (05:22→21:40)
[2018-04-20] MEDS: HumaLOG SUB-Q SCH ×4 (05:32→18:20)
[2018-04-20] MEDS: DUONEB *Not for PRN Use IH SCH ×3 (07:31→20:11)
[2018-04-20] MEDS: HumuLIN R SUB-Q SCH ×3 (08:58→22:18)
[2018-04-20] MEDS: PEPCID PO SCH ×2 (09:17→21:40)
[2018-04-20] MEDS: SODIUM CHLORIDE FLUSH SYRINGE 10 ML IV SCH (09:17)
[2018-04-20] MEDS: LOVENOX SUB-Q SCH (09:17)
--- NOTE | 2018-04-20 09:22 | Progress Note ---
Assessment and Plan Acute Hypoxemic Respiratory Failure on MVS fro airway protection/seizures New Onset Seizures (presumed secondary to Hypoglycemia) Acute Encephalopathy (Toxic -Metabolic) Diabetes Type II, hypoglycemia Rhabdomyolysis Obesity HTN Possible JOE Hyponatremia (mild) Hypomagnesemia Leucocytosis h/o Alcohol use disorder -VAP bundle addressed -Anti-seizure medications -Analgesia and agitation management. -VTE and stress ulcer prophylaxis -AEDs (Keppra) -Enteric nutrition with glycemic control (sub-optimal control at this time, increased lantus dosing) -Target blood glucose level 140-180mg/dL -Avoid hypoglycemia -Critical care bundles addressed -Aspiration precautions - Wean supplemental oxygen to keep O2 sats > 90% -Lung protective strategies - Bronchodilators per protocol - Daily SAT's and SBT - Replace electrolytes as indicated Blood pressure control Started neurostimulant, modafinil at 200mg qdaily, monitor for arrythmias and seizures Discussed extensively with the sons at the bedside. His mental status precludes extubation. His MRI and EEG were unremarkable. It is possible that this is from prolonged hypoglycemia I will monitor the response to modafinil over the weekend, and see if his mental status will improve. If it does not, will repeat EEG and neuroimaging. I also discussed the need for trachesotomy, if his encephaloapthy does not improve enough to allow for safe liberation from mechanical ventilatory support. They both verbalized understanding, their questions were answered. Discussed with RT and RT CONDITION: CRITICAL PROGNOSIS: GUARDED CODE STATUS: FULL CODE The high probability of a clinically significant, sudden or life-threatening deterioration of the [respiratory, renal, endocrine, neurology] system(s) required my full and direct attention, intervention and personal management. The aggregate critical care time was [31] minutes without overlap. Time includes spent on; [x] Data Review and interpretation [x] Patient assessment and monitoring of vital signs [x] Documentation [x] Medication orders and management Subjective Date of service: 04/20/18 Principal diagnosis: Ac Hypoxemic Resp Failure; Seizures; Encephalopathy; DM II; Rhabdomyolysis Interval history: Patient is seen today for: Acute Hypoxemic Respiratory Failure; New Onset Seizures (presumed secondary to Hypoglycemia); Acute Encephalopathy (Toxic - Metabolic); Diabetes Type II; Rhabdomyolysis Seen and examined at bedside; 24hour events reviewed; nursing and respiratory care staff consulted; no adverse overnight events reported to me; resting peacefully in bed; remains encephalopathic, though he tolerates SBT trials. Remains on MVS, no fevers documented overnight. Episodes of hypertension associated with weaning trials, otherwise remains normotensive. Continues to tolerate SBT Objective Vital Signs - 12hr 04/19/18 04/19/18 04/19/18 22:00 22:01 23:00 Temperature Pulse Rate 66 72 70 Pulse Rate [ Bilateral Throughout] Pulse Rate [ From Monitor] Pulse Rate [ Throughout] Respiratory 17 20 Rate Respiratory Rate [Bilateral Throughout] Respiratory Rate [ Throughout] Blood Pressure 124/58 120/62 O2 Sat by Pulse 100 100 Oximetry 04/19/18 04/19/18 04/20/18 23:10 23:41 00:00 Temperature 99.6 F Pulse Rate 70 66 Pulse Rate [ Bilateral Throughout] Pulse Rate [ 73 From Monitor] Pulse Rate [ Throughout] Respiratory 14 Rate Respiratory Rate [Bilateral Throughout] Respiratory Rate [ Throughout] Blood Pressure 120/62 118/60 O2 Sat by Pulse 100 100 Oximetry 04/20/18 04/20/18 04/20/18 01:01 02:00 03:00 Temperature Pulse Rate 66 67 67 Pulse Rate [ Bilateral Throughout] Pulse Rate [ From Monitor] Pulse Rate [ Throughout] Respiratory 15 12 12 Rate Respiratory Rate [Bilateral Throughout] Respiratory Rate [ Throughout] Blood Pressure 116/53 116/53 107/56 O2 Sat by Pulse 100 100 100 Oximetry 04/20/18 04/20/18 04/20/18 03:09 03:19 04:00 Temperature 99.1 F Pulse Rate 59 L Pulse Rate [ Bilateral Throughout] Pulse Rate [ 61 From Monitor] Pulse Rate [ Throughout] Respiratory 18 Rate Respiratory Rate [Bilateral Throughout] Respiratory Rate [ Throughout] Blood Pressure 107/56 O2 Sat by Pulse 100 99 Oximetry 04/20/18 04/20/18 04/20/18 04:01 05:00 06:01 Temperature Pulse Rate 64 66 65 Pulse Rate [ Bilateral Throughout] Pulse Rate [ From Monitor] Pulse Rate [ Throughout] Respiratory 12 19 12 Rate Respiratory Rate [Bilateral Throughout] Respiratory Rate [ Throughout] Blood Pressure 90/47 90/47 90/47 O2 Sat by Pulse 100 100 98 Oximetry 04/20/18 04/20/18 07:31 08:20 Temperature Pulse Rate 65 Pulse Rate [ 90 Bilateral Throughout] Pulse Rate [ From Monitor] Pulse Rate [ 88 Throughout] Respiratory 18 Rate Respiratory 18 Rate [Bilateral Throughout] Respiratory 18 Rate [ Throughout] Blood Pressure 90/47 O2 Sat by Pulse 98 Oximetry Constitutional: no acute distress, other (Elderly looking AAM, normocephalic and atraumatic with mildly increased respiratory effort on MVS) Eyes: non-icteric ENT: oropharynx moist, other (ETT 23 cm STEPHANIE) Neck: supple, no lymphadenopathy, no JVD, other (large neck circumference) Effort: mildly labored Ascultation: Bilateral: diminished breath sounds, rhonchi Percussion: Bilateral: not dull Cardiovascular: regular rate and rhythm Gastrointestinal: normoactive bowel sounds, soft, non-tender, non-distended, other (protuberant) Integumentary: normal Extremities: no cyanosis, no edema, pulses normal, no ischemia or petechiae Neurologic: pupils equal and round, unable to assess Psychiatric: other (unable to assess) CBC and BMP: 04/20/18 04:09 04/21/18 05:00 ABG, PT/INR, D-dimer: ABG POC ABG pH 7.497 (7.35-7.45) H 04/19/18 04:46 POC ABG pCO2 42.9 (35-45) 04/19/18 04:46 POC ABG pO2 119 (80-105) H 04/19/18 04:46 POC ABG HCO3 33.2 04/19/18 04:46 POC ABG Total CO2 35 04/19/18 04:46 POC ABG O2 Sat 99 04/19/18 04:46 Abnormal lab findings: Abnormal Labs 04/09/18 04/09/18 04/09/18 23:16 23:16 23:16 WBC 13.6 H Hct MCHC Plt Count Lymph % (Auto) 9.4 L [place] % (Auto) Lymph # [place] # Seg Neutrophils % 87.3 H Seg Neutrophils # 11.9 H POC ABG pH POC ABG pCO2 POC ABG pO2 Sodium 132 L Potassium Chloride 92.7 L Carbon Dioxide BUN Glucose 143 H POC Glucose Hemoglobin A1c Lactic Acid 2.10 H* Calcium Phosphorus Magnesium Total Bilirubin 2.20 H Direct Bilirubin AST 107 H Total Creatine Kinase CK-MB (CK-2) C-Reactive Protein Total Protein Albumin 04/10/18 04/10/18 04/10/18 00:38 00:55 01:13 WBC Hct MCHC Plt Count Lymph % (Auto) [place] % (Auto) Lymph # [place] # Seg Neutrophils % Seg Neutrophils # POC ABG pH POC ABG pCO2 POC ABG pO2 Sodium Potassium Chloride Carbon Dioxide BUN Glucose POC Glucose 117 H 121 H Hemoglobin A1c Lactic Acid 2.10 H* Calcium Phosphorus Magnesium Total Bilirubin Direct Bilirubin AST Total Creatine Kinase CK-MB (CK-2) C-Reactive Protein Total Protein Albumin 04/10/18 04/10/18 04/10/18 02:10 03:51 04:07 WBC 14.0 H Hct MCHC Plt Count Lymph % (Auto) 7.5 L [place] % (Auto) Lymph # 1.1 L [place] # 1.0 H Seg Neutrophils % 84.9 H Seg Neutrophils # 11.8 H POC ABG pH POC ABG pCO2 POC ABG pO2 Sodium Potassium Chloride Carbon Dioxide BUN Glucose POC Glucose 153 H 158 H Hemoglobin A1c Lactic Acid Calcium Phosphorus Magnesium Total Bilirubin Direct Bilirubin AST Total Creatine Kinase CK-MB (CK-2) C-Reactive Protein Total Protein Albumin 04/10/18 04/10/18 04/10/18 04:07 06:56 09:48 WBC Hct MCHC Plt Count Lymph % (Auto) [place] % (Auto) Lymph # [place] # Seg Neutrophils % Seg Neutrophils # POC ABG pH POC ABG pCO2 POC ABG pO2 Sodium 130 L Potassium Chloride 93.4 L Carbon Dioxide BUN Glucose 180 H POC Glucose 251 H 245 H Hemoglobin A1c Lactic Acid Calcium 7.9 L D Phosphorus Magnesium Total Bilirubin Direct Bilirubin AST Total Creatine Kinase 7857 H CK-MB (CK-2) 34.3 H C-Reactive Protein Total Protein Albumin 04/10/18 04/10/18 04/10/18 10:37 12:44 17:31 WBC Hct MCHC Plt Count Lymph % (Auto) [place] % (Auto) Lymph # [place] # Seg Neutrophils % Seg Neutrophils # POC ABG pH POC ABG pCO2 45.6 H POC ABG pO2 374 H Sodium Potassium Chloride Carbon Dioxide BUN Glucose POC Glucose 348 H Hemoglobin A1c Lactic Acid Calcium Phosphorus Magnesium Total Bilirubin Direct Bilirubin AST Total Creatine Kinase 9880 H CK-MB (CK-2) 30.0 H C-Reactive Protein Total Protein Albumin 04/10/18 04/11/18 04/11/18 23:36 03:52 04:28 WBC 12.2 H Hct MCHC Plt Count 132 L Lymph % (Auto) [place] % (Auto) 10.2 H Lymph # [place] # 1.2 H Seg Neutrophils % 75.1 H Seg Neutrophils # 9.1 H POC ABG pH 7.495 H POC ABG pCO2 32.4 L POC ABG pO2 Sodium Potassium Chloride Carbon Dioxide BUN Glucose POC Glucose 148 H Hemoglobin A1c Lactic Acid Calcium Phosphorus Magnesium Total Bilirubin Direct Bilirubin AST Total Creatine Kinase CK-MB (CK-2) C-Reactive Protein Total Protein Albumin 04/11/18 04/11/18 04/11/18 04:28 04:28 05:22 WBC Hct MCHC Plt Count Lymph % (Auto) [place] % (Auto) Lymph # [place] # Seg Neutrophils % Seg Neutrophils # POC ABG pH POC ABG pCO2 POC ABG pO2 Sodium 133 L Potassium 3.5 L Chloride 95.1 L Carbon Dioxide BUN 7 L Glucose 206 H POC Glucose 178 H Hemoglobin A1c 6.4 H Lactic Acid Calcium 7.7 L Phosphorus 1.80 L Magnesium 1.50 L Total Bilirubin 4.10 H Direct Bilirubin AST 168 H Total Creatine Kinase 9352 H CK-MB (CK-2) C-Reactive Protein Total Protein Albumin 3.4 L 04/11/18 04/11/18 04/11/18 11:28 13:43 17:30 WBC Hct MCHC Plt Count Lymph % (Auto) [place] % (Auto) Lymph # [place] # Seg Neutrophils % Seg Neutrophils # POC ABG pH POC ABG pCO2 POC ABG pO2 Sodium Potassium Chloride Carbon Dioxide BUN Glucose POC Glucose 196 H 142 H Hemoglobin A1c Lactic Acid Calcium Phosphorus Magnesium Total Bilirubin Direct Bilirubin AST Total Creatine Kinase CK-MB (CK-2) C-Reactive Protein 7.20 H Total Protein Albumin 04/11/18 04/11/18 04/12/18 18:59 23:23 04:00 WBC Hct MCHC Plt Count Lymph % (Auto) [place] % (Auto) Lymph # [place] # Seg Neutrophils % Seg Neutrophils # POC ABG pH 7.489 H POC ABG pCO2 34.5 L POC ABG pO2 Sodium Potassium 3.3 L Chloride Carbon Dioxide BUN 6 L Glucose 151 H POC Glucose 129 H Hemoglobin A1c Lactic Acid Calcium 7.3 L Phosphorus 2.00 L Magnesium Total Bilirubin 2.80 H Direct Bilirubin AST 121 H Total Creatine Kinase 5177 H CK-MB (CK-2) C-Reactive Protein Total Protein 5.9 L Albumin 3.1 L 04/12/18 04/12/18 04/12/18 04:00 04:04 05:21 WBC Hct 34.9 L MCHC 35 H Plt Count 128 L Lymph % (Auto) [place] % (Auto) 10.6 H Lymph # [place] # 0.9 H Seg Neutrophils % Seg Neutrophils # POC ABG pH 7.454 H POC ABG pCO2 POC ABG pO2 Sodium Potassium Chloride Carbon Dioxide BUN Glucose POC Glucose 136 H Hemoglobin A1c Lactic Acid Calcium Phosphorus Magnesium Total Bilirubin Direct Bilirubin AST Total Creatine Kinase CK-MB (CK-2) C-Reactive Protein Total Protein Albumin 04/12/18 04/13/18 04/13/18 11:23 00:21 04:57 WBC Hct MCHC Plt Count Lymph % (Auto) [place] % (Auto) Lymph # [place] # Seg Neutrophils % Seg Neutrophils # POC ABG pH POC ABG pCO2 34.7 L POC ABG pO2 125 H Sodium Potassium Chloride Carbon Dioxide BUN Glucose POC Glucose 166 H 143 H Hemoglobin A1c Lactic Acid Calcium Phosphorus Magnesium Total Bilirubin Direct Bilirubin AST Total Creatine Kinase CK-MB (CK-2) C-Reactive Protein Total Protein Albumin 04/13/18 04/13/18 04/13/18 05:02 05:02 12:16 WBC Hct MCHC Plt Count Lymph % (Auto) [place] % (Auto) Lymph # [place] # Seg Neutrophils % Seg Neutrophils # POC ABG pH POC ABG pCO2 POC ABG pO2 Sodium Potassium Chloride Carbon Dioxide BUN Glucose POC Glucose 161 H 170 H Hemoglobin A1c Lactic Acid Calcium Phosphorus Magnesium Total Bilirubin Direct Bilirubin AST Total Creatine Kinase 3456 H CK-MB (CK-2) C-Reactive Protein Total Protein Albumin 04/13/18 04/13/18 04/14/18 18:52 23:09 04:35 WBC Hct MCHC Plt Count Lymph % (Auto) [place] % (Auto) Lymph # [place] # Seg Neutrophils % Seg Neutrophils # POC ABG pH 7.467 H POC ABG pCO2 POC ABG pO2 Sodium Potassium Chloride Carbon Dioxide BUN Glucose POC Glucose 196 H 219 H Hemoglobin A1c Lactic Acid Calcium Phosphorus Magnesium Total Bilirubin Direct Bilirubin AST Total Creatine Kinase CK-MB (CK-2) C-Reactive Protein Total Protein Albumin 04/14/18 04/14/18 04/14/18 05:00 05:26 11:20 WBC Hct MCHC Plt Count Lymph % (Auto) [place] % (Auto) Lymph # [place] # Seg Neutrophils % Seg Neutrophils # POC ABG pH POC ABG pCO2 POC ABG pO2 Sodium Potassium Chloride Carbon Dioxide BUN Glucose POC Glucose 249 H 260 H Hemoglobin A1c Lactic Acid Calcium Phosphorus Magnesium Total Bilirubin Direct Bilirubin AST Total Creatine Kinase 2247 H CK-MB (CK-2) C-Reactive Protein Total Protein Albumin 04/14/18 04/14/18 04/14/18 17:04 17:51 23:53 WBC Hct MCHC Plt Count Lymph % (Auto) [place] % (Auto) Lymph # [place] # Seg Neutrophils % Seg Neutrophils # POC ABG pH POC ABG pCO2 POC ABG pO2 79 L Sodium Potassium Chloride Carbon Dioxide BUN Glucose POC Glucose 284 H 203 H Hemoglobin A1c Lactic Acid Calcium Phosphorus Magnesium Total Bilirubin Direct Bilirubin AST Total Creatine Kinase CK-MB (CK-2) C-Reactive Protein Total Protein Albumin 04/15/18 04/15/18 04/15/18 04:24 05:26 12:56 WBC Hct MCHC Plt Count Lymph % (Auto) [place] % (Auto) Lymph # [place] # Seg Neutrophils % Seg Neutrophils # POC ABG pH POC ABG pCO2 45.4 H POC ABG pO2 78 L Sodium Potassium Chloride Carbon Dioxide BUN Glucose POC Glucose 194 H 200 H Hemoglobin A1c Lactic Acid Calcium Phosphorus Magnesium Total Bilirubin Direct Bilirubin AST Total Creatine Kinase CK-MB (CK-2) C-Reactive Protein Total Protein Albumin 04/15/18 04/15/18 04/16/18 17:46 23:57 05:08 WBC Hct MCHC Plt Count Lymph % (Auto) [place] % (Auto) Lymph # [place] # Seg Neutrophils % Seg Neutrophils # POC ABG pH POC ABG pCO2 POC ABG pO2 Sodium Potassium Chloride Carbon Dioxide BUN Glucose POC Glucose 118 H 204 H 221 H Hemoglobin A1c Lactic Acid Calcium Phosphorus Magnesium Total Bilirubin Direct Bilirubin AST Total Creatine Kinase CK-MB (CK-2) C-Reactive Protein Total Protein Albumin 04/16/18 04/16/18 04/16/18 05:16 12:23 13:07 WBC Hct MCHC Plt Count Lymph % (Auto) [place] % (Auto) Lymph # [place] # Seg Neutrophils % Seg Neutrophils # POC ABG pH 7.456 H POC ABG pCO2 46.7 H POC ABG pO2 Sodium Potassium Chloride Carbon Dioxide BUN Glucose POC Glucose 271 H Hemoglobin A1c Lactic Acid Calcium Phosphorus Magnesium Total Bilirubin Direct Bilirubin AST Total Creatine Kinase CK-MB (CK-2) C-Reactive Protein Total Protein Albumin 04/16/18 04/17/18 04/17/18 19:14 00:08 05:46 WBC Hct MCHC Plt Count Lymph % (Auto) [place] % (Auto) Lymph # [place] # Seg Neutrophils % Seg Neutrophils # POC ABG pH POC ABG pCO2 POC ABG pO2 Sodium Potassium Chloride Carbon Dioxide BUN Glucose POC Glucose 221 H 238 H 274 H Hemoglobin A1c Lactic Acid Calcium Phosphorus Magnesium Total Bilirubin Direct Bilirubin AST Total Creatine Kinase CK-MB (CK-2) C-Reactive Protein Total Protein Albumin 04/17/18 04/17/18 04/17/18 13:50 13:59 14:20 WBC Hct MCHC Plt Count Lymph % (Auto) [place] % (Auto) Lymph # [place] # Seg Neutrophils % Seg Neutrophils # POC ABG pH 7.474 H POC ABG pCO2 POC ABG pO2 Sodium Potassium 3.4 L Chloride 93.6 L Carbon Dioxide 33 H BUN Glucose 305 H POC Glucose 315 H Hemoglobin A1c Lactic Acid Calcium Phosphorus Magnesium Total Bilirubin Direct Bilirubin AST Total Creatine Kinase CK-MB (CK-2) C-Reactive Protein Total Protein Albumin 04/17/18 04/17/18 04/18/18 17:04 23:26 04:20 WBC Hct MCHC Plt Count Lymph % (Auto) [place] % (Auto) Lymph # [place] # Seg Neutrophils % Seg Neutrophils # POC ABG pH 7.473 H POC ABG pCO2 POC ABG pO2 Sodium Potassium Chloride Carbon Dioxide BUN Glucose POC Glucose 280 H 284 H Hemoglobin A1c Lactic Acid Calcium Phosphorus Magnesium Total Bilirubin Direct Bilirubin AST Total Creatine Kinase CK-MB (CK-2) C-Reactive Protein Total Protein Albumin 04/18/18 04/18/18 04/18/18 05:14 08:32 11:00 WBC Hct MCHC Plt Count Lymph % (Auto) [place] % (Auto) Lymph # [place] # Seg Neutrophils % Seg Neutrophils # POC ABG pH POC ABG pCO2 POC ABG pO2 Sodium Potassium Chloride Carbon Dioxide BUN Glucose POC Glucose 286 H 296 H Hemoglobin A1c Lactic Acid Calcium Phosphorus Magnesium Total Bilirubin Direct Bilirubin 0.3 H AST 87 H Total Creatine Kinase CK-MB (CK-2) C-Reactive Protein Total Protein Albumin 3.7 L 04/18/18 04/18/18 04/19/18 12:03 18:15 00:08 WBC Hct MCHC Plt Count Lymph % (Auto) [place] % (Auto) Lymph # [place] # Seg Neutrophils % Seg Neutrophils # POC ABG pH POC ABG pCO2 POC ABG pO2 Sodium Potassium Chloride Carbon Dioxide BUN Glucose POC Glucose 353 H 327 H 331 H Hemoglobin A1c Lactic Acid Calcium Phosphorus Magnesium Total Bilirubin Direct Bilirubin AST Total Creatine Kinase CK-MB (CK-2) C-Reactive Protein Total Protein Albumin 04/19/18 04/19/18 04/19/18 04:46 05:26 11:48 WBC Hct MCHC Plt Count Lymph % (Auto) [place] % (Auto) Lymph # [place] # Seg Neutrophils % Seg Neutrophils # POC ABG pH 7.497 H POC ABG pCO2 POC ABG pO2 119 H Sodium Potassium Chloride Carbon Dioxide BUN Glucose POC Glucose 323 H 266 H Hemoglobin A1c Lactic Acid Calcium Phosphorus Magnesium Total Bilirubin Direct Bilirubin AST Total Creatine Kinase CK-MB (CK-2) C-Reactive Protein Total Protein Albumin 04/19/18 04/19/18 04/20/18 17:52 23:37 00:07 WBC Hct MCHC Plt Count Lymph % (Auto) [place] % (Auto) Lymph # [place] # Seg Neutrophils % Seg Neutrophils # POC ABG pH POC ABG pCO2 POC ABG pO2 Sodium Potassium Chloride Carbon Dioxide BUN Glucose POC Glucose 284 H 285 H 312 H Hemoglobin A1c Lactic Acid Calcium Phosphorus Magnesium Total Bilirubin Direct Bilirubin AST Total Creatine Kinase CK-MB (CK-2) C-Reactive Protein Total Protein Albumin 04/20/18 04/20/18 04/20/18 04:09 04:09 04:37 WBC Hct 34.7 L MCHC 35 H Plt Count Lymph % (Auto) [place] % (Auto) Lymph # [place] # Seg Neutrophils % Seg Neutrophils # POC ABG pH POC ABG pCO2 POC ABG pO2 Sodium Potassium 3.5 L Chloride 95.7 L Carbon Dioxide 34 H BUN Glucose 286 H POC Glucose 267 H Hemoglobin A1c Lactic Acid Calcium Phosphorus Magnesium Total Bilirubin Direct Bilirubin AST Total Creatine Kinase CK-MB (CK-2) C-Reactive Protein Total Protein Albumin Additional Studies: EEG shows slowing left frontocentral and sometimes also in the same region on the right but no epileptiform activity. MRI shows negative diffusion and GRE, old right subcaudate lacune, slight periventricular white matter disease but no acute changes. Allied health notes reviewed: RT
[2018-04-20] MEDS ORDERED: LANTUS SUB-Q SCH (10:00)
[2018-04-20] MEDS: POTASSIUM CHLORIDE FEEDTUBE SCH (11:43)
[2018-04-20] MEDS: PROVIGIL PO SCH (11:44)
--- NOTE | 2018-04-20 13:24 | Progress Note ---
Assessment and Plan Assessment and plan: Acute respiratory failure with hypoxia -s/p intubation on MV -pulmonology following Hypokalemia -on repletion, will monitor Severe sepsis 2/2 aspiration PNA -resolved -off antibiotics Aspiration Pneumonia -completed antibiotics DM II with hyperglycemia -insulin regimen adjusted, will monitor Toxic metabolic encephalopathy -no significant change in ms -EEG abnormal -MRI brain neg -neurology following Seizure, new onset -stable on Keppra -cont seizure precautions Critical Illness Myopathy -cont supportive care Thrombocytopenia -level improved, will monitor Transaminitis -levels improved -Hepatitis panel neg -Abd US neg Rhabdomyolysis -improved Hypophosphatemia -will recheck level in am HTN -home metoprolol restarted Moderate protein calorie malnutrition -on tube feeding -green chain operator following DVT/GI prophylaxis with Lovenox and famotidine Disp: Overall prognosis is poor. Cont current mgx History Interval history: Pt is unable to communicate. No reported issues overnight. Hospitalist Physical - Constitutional Vitals: Temp Pulse Resp BP Pulse Ox 99.1 F 65 18 90/47 98 04/20/18 03:09 04/20/18 08:20 04/20/18 08:20 04/20/18 08:20 04/20/18 08:20 General appearance: Present: no acute distress, other (intubated on vent) - EENT Eyes: Present: PERRL ENT: other (Pt is intubated) - Neck Neck: Present: supple - Respiratory Respiratory effort: normal Respiratory: bilateral: rales (bibasilar) - Cardiovascular Rhythm: regular Heart Sounds: Present: S1 & S2 - Extremities Extremities: No edema - Abdominal General gastrointestinal: soft, non-tender, non-distended, normal bowel sounds - Neurologic Neurologic: other (Pt is intubated ) Results - Labs CBC & Chem 7: 04/20/18 04:09 04/20/18 04:09 Labs: Laboratory Last Values WBC 8.7 K/mm3 (4.5-11.0) 04/20/18 04:09 RBC 3.94 M/mm3 (3.65-5.03) 04/20/18 04:09 Hgb 12.0 gm/dl (11.8-15.2) 04/20/18 04:09 Hct 34.7 % (35.5-45.6) L 04/20/18 04:09 MCV 88 fl (84-94) 04/20/18 04:09 MCH 31 pg (28-32) 04/20/18 04:09 MCHC 35 % (32-34) H 04/20/18 04:09 RDW 14.7 % (13.2-15.2) 04/20/18 04:09 Plt Count 166 K/mm3 (140-440) 04/20/18 04:09 Lymph % (Auto) 21.7 % (13.4-35.0) 04/12/18 04:00 [place] % (Auto) 10.6 % (0.0-7.3) H 04/12/18 04:00 Eos % (Auto) 1.2 % (0.0-4.3) 04/12/18 04:00 Baso % (Auto) 0.7 % (0.0-1.8) 04/12/18 04:00 Lymph # 1.8 K/mm3 (1.2-5.4) 04/12/18 04:00 [place] # 0.9 K/mm3 (0.0-0.8) H 04/12/18 04:00 Eos # 0.1 K/mm3 (0.0-0.4) 04/12/18 04:00 Baso # 0.1 K/mm3 (0.0-0.1) 04/12/18 04:00 Seg Neutrophils % 65.8 % (40.0-70.0) 04/12/18 04:00 Seg Neutrophils # 5.3 K/mm3 (1.8-7.7) 04/12/18 04:00 APTT 24.8 Sec. (24.2-36.6) 04/09/18 23:16 POC ABG pH 7.497 (7.35-7.45) H 04/19/18 04:46 POC ABG pCO2 42.9 (35-45) 04/19/18 04:46 POC ABG pO2 119 (80-105) H 04/19/18 04:46 POC ABG HCO3 33.2 04/19/18 04:46 POC ABG Total CO2 35 04/19/18 04:46 POC ABG O2 Sat 99 04/19/18 04:46 POC ABG Base Excess 10 04/19/18 04:46 FiO2 30 % 04/19/18 04:46 Sodium 139 mmol/L (137-145) 04/20/18 04:09 Potassium 3.5 mmol/L (3.6-5.0) L 04/20/18 04:09 Chloride 95.7 mmol/L (98-107) L 04/20/18 04:09 Carbon Dioxide 34 mmol/L (22-30) H 04/20/18 04:09 Anion Gap 13 mmol/L 04/20/18 04:09 BUN 14 mg/dL (9-20) 04/20/18 04:09 Creatinine 0.8 mg/dL (0.8-1.5) 04/20/18 04:09 Estimated GFR > 60 ml/min 04/20/18 04:09 BUN/Creatinine Ratio 18 % 04/20/18 04:09 Glucose 286 mg/dL (75-100) H 04/20/18 04:09 POC Glucose 267 (70-105) H 04/20/18 04:37 Hemoglobin A1c 6.4 % (4-6) H 04/11/18 04:28 Lactic Acid 1.70 mmol/L (0.7-2.0) 04/10/18 02:47 Calcium 8.5 mg/dL (8.4-10.2) 04/20/18 04:09 Phosphorus 2.00 mg/dL (2.5-4.5) L 04/12/18 04:00 Magnesium 2.30 mg/dL (1.7-2.3) 04/12/18 04:00 Total Bilirubin 1.20 mg/dL (0.1-1.2) 04/18/18 11:00 Direct Bilirubin 0.3 mg/dL (0-0.2) H 04/18/18 11:00 Indirect Bilirubin 0.9 mg/dL 04/18/18 11:00 AST 87 units/L (5-40) H 04/18/18 11:00 ALT 39 units/L (7-56) 04/18/18 11:00 Alkaline Phosphatase 59 units/L (35-129) 04/18/18 11:00 Total Creatine Kinase 2247 units/L (55-170) H 04/14/18 05:00 CK-MB (CK-2) 30.0 ng/mL (0.0-4.0) H 04/10/18 10:37 CK-MB (CK-2) Rel Index 0.3 (0-4) 04/10/18 10:37 Troponin T < 0.010 ng/mL (0.00-0.029) 04/10/18 10:37 C-Reactive Protein 7.20 mg/dL (0.00-1.30) H 04/11/18 13:43 Total Protein 6.8 g/dL (6.3-8.2) 04/18/18 11:00 Albumin 3.7 g/dL (3.9-5) L 04/18/18 11:00 Albumin/Globulin Ratio 1.2 % 04/18/18 11:00 Urine Color Yellow (Yellow) 04/10/18 01:07 Urine Turbidity Clear (Clear) 04/10/18 01:07 Urine pH 5.0 (5.0-7.0) 04/10/18 01:07 Ur Specific [place] 1.019 (1.003-1.030) 04/10/18 01:07 Urine Protein 100 mg/dl mg/dL (Negative) 04/10/18 01:07 Urine Glucose (UA) Neg mg/dL (Negative) 04/10/18 01:07 Urine Ketones Neg mg/dL (Negative) 04/10/18 01:07 Urine Blood Lg (Negative) 04/10/18 01:07 Urine Nitrite Neg (Negative) 04/10/18 01:07 Urine Bilirubin Neg (Negative) 04/10/18 01:07 Urine Urobilinogen < 2.0 mg/dL (<2.0) 04/10/18 01:07 Ur Leukocyte Esterase Neg (Negative) 04/10/18 01:07 Urine WBC (Auto) 1.0 /HPF (0.0-6.0) 04/10/18 01:07 Urine RBC (Auto) 9.0 /HPF (0.0-6.0) 04/10/18 01:07 U Epithel Cells (Auto) < 1.0 /HPF (0-13.0) 04/10/18 01:07 Urine Mucus Few /HPF 04/10/18 01:07 Levetiracetam 25.2 mcg/mL 04/12/18 20:37 Hepatitis A IgM Ab Non-reactive (NonReactive) 04/14/18 14:56 Hep Bs Antigen Non-reactive (Negative) 04/14/18 14:56 Hep B Core IgM Ab Non-reactive (NonReactive) 04/14/18 14:56 Hepatitis C Antibody Non-reactive (NonReactive) 04/14/18 14:56 Influenza A (Rapid) Negative (Negative) 04/11/18 15:08 Influenza B (Rapid) Negative (Negative) 04/11/18 15:08 Nutrition/Malnutrition Assess - Dietary Evaluation Nutrition/Malnutrition Findings: Nutrition Notes Start: 04/11/18 10:20 Freq: Status: Active Protocol: Document 04/19/18 13:52 CP (Rec: 04/19/18 14:17 CP [id number]) Co-Sign 04/19/18 13:52 LP Nutrition Notes Need for Assessment generated from: MD Order Initial or Follow up Assessment Current Diagnosis Coronary Artery Disease Diabetes Hypertension Respiratory Failure Other Pertinent Diagnosis Pneu, new onset seizures, acute encephalopathy Current Diet TF - Vital High Protein at 60ml/hr Labs/Tests BG 266 Pertinent Medications Reviewed Height 5 ft 9 in Weight 97 kg [place] Body Weight (kg) 72.72 BMI 31.6 Subjective/Other Information MD consult for TF with lower CHO d/t high BG as discussed in rounds. Vital AF will be ordered. Burn Absent Trauma Absent #1 Nutrition Diagnosis Inadequate oral intake Diagnosis Progress(for reassessment Continues documentation) Is patient on ventilator? Yes Is Patient Ambulatory and/or Out of Bed No REE-([facility]-confined to bed) 2021.780 Kcal/Kg value to use for calculation 16 Approximate Energy Requirements Using 1552 kcal/Kg Calculation Used for Recommendations Kcal/kg Additional Notes Pro needs 2g/kg IBW: 145g/day Fluid needs 1ml/kcal Nutrition Intervention Change Diet Order: Vital AF 1.2 Nutrition Support: Change TF to Vital 1.2 at 50 mL/hr. Water flush 80 mL q4h. Kcal 1,440 Protein (gm) 90 Carbohydrates (gm) 133 Fluid (mL) 1,200 Goal #1 TF to start Anticipated Discharge Needs: Unable to determine at this time Follow-Up By: 04/22/18 Additional Comments F/U: TF to start
[2018-04-20] MEDS ORDERED: LOPRESSOR PO SCH (22:00)
[2018-04-21] MEDS: HumaLOG SUB-Q SCH ×5 (00:36→23:48)
[2018-04-21 05:41] LABS: BUN/Creatinine Ratio 14; Blood Urea Nitrogen 11 mg/dL (9-20); Hemolysis Index 3
[2018-04-21] MEDS: SODIUM CHLORIDE FLUSH SYRINGE 10 ML IV SCH ×3 (06:04→21:05)
[2018-04-21] MEDS: HumuLIN R SUB-Q SCH ×3 (08:37→21:22)
[2018-04-21] MEDS: DUONEB *Not for PRN Use IH SCH ×3 (08:47→19:29)
[2018-04-21] MEDS: APRESOLINE IV PRN (08:48)
[2018-04-21] MEDS: LOVENOX SUB-Q SCH (10:06)
[2018-04-21] MEDS: PEPCID PO SCH ×2 (10:06→21:05)
[2018-04-21] MEDS: KEPPRA PO SCH ×2 (10:06→21:04)
[2018-04-21] MEDS: POTASSIUM CHLORIDE FEEDTUBE SCH (10:07)
[2018-04-21] MEDS: NORVASC FEEDTUBE SCH (10:12)
[2018-04-21] MEDS: LOPRESSOR PO SCH ×2 (10:12→21:04)
[2018-04-21] MEDS: LANTUS SUB-Q SCH (10:30)
[2018-04-21] MEDS: PROVIGIL PO SCH (10:30)
[2018-04-21] MEDS ORDERED: APRESOLINE IV ONE (11:03)
[2018-04-21] MEDS: TRANSDERM-SCOP TD SCH (11:43)
--- NOTE | 2018-04-21 11:45 | Progress Note ---
Assessment and Plan Acute Hypoxemic Respiratory Failure on MVS fro airway protection/seizures New Onset Seizures (presumed secondary to Hypoglycemia) Acute Encephalopathy (Toxic -Metabolic) Diabetes Type II, hypoglycemia Rhabdomyolysis Obesity HTN Possible JOE Hyponatremia (mild) Hypomagnesemia Leucocytosis h/o Alcohol use disorder Medical decision making --continue neurostimulant -Blood pressure control -Secretion management -Avoid delirium, maintain sleep-wake cycle. -Monitor mental status for another 24 hours, appears to be responding to the addition of the neurostimulant. -No need at this time for EEG or neuroimaging All other care as outlined below. -VAP bundle addressed -Anti-seizure medications -Analgesia and agitation management. -VTE and stress ulcer prophylaxis -AEDs (Keppra) -Enteric nutrition with glycemic control -Target blood glucose level 140-180mg/dL -Avoid hypoglycemia -Critical care bundles addressed -Aspiration precautions - Wean supplemental oxygen to keep O2 sats > 90% -Lung protective strategies - Bronchodilators per protocol - Daily SAT's and SBT - Replace electrolytes as indicated Discussed with RT and RT CONDITION: CRITICAL PROGNOSIS: GUARDED CODE STATUS: FULL CODE The high probability of a clinically significant, sudden or life-threatening deterioration of the [respiratory, renal, endocrine, neurology] system(s) required my full and direct attention, intervention and personal management. The aggregate critical care time was [31] minutes without overlap. Time includes spent on; [x] Data Review and interpretation [x] Patient assessment and monitoring of vital signs [x] Documentation [x] Medication orders and management Subjective Date of service: 04/21/18 Principal diagnosis: Ac Hypoxemic Resp Failure; Seizures; Encephalopathy; DM II; Rhabdomyolysis Interval history: Patient is seen today for: Acute Hypoxemic Respiratory Failure; New Onset Seizures (presumed secondary to Hypoglycemia); Acute Encephalopathy (Toxic - Metabolic); Diabetes Type II; Rhabdomyolysis Seen and examined at bedside; 24hour events reviewed; nursing and respiratory care staff consulted; no adverse overnight events reported to me; resting peacefully in bed; remains encephalopathic, though he tolerates SBT trials, copious oral secretions. Remains on MVS, no fevers documented overnight. Ep isodes of hypertension associated, more awake this morning, actively resisting movements, opening eyes Objective Vital Signs - 12hr 04/21/18 04/21/18 04/21/18 00:01 00:13 01:01 Temperature Pulse Rate 69 68 Pulse Rate [ 72 From Monitor] Pulse Rate [ Throughout] Respiratory 17 17 16 Rate Respiratory Rate [ Throughout] Blood Pressure 128/69 O2 Sat by Pulse 100 100 Oximetry 04/21/18 04/21/18 04/21/18 02:01 03:01 03:18 Temperature 99.3 F Pulse Rate 71 75 Pulse Rate [ From Monitor] Pulse Rate [ Throughout] Respiratory 17 12 Rate Respiratory Rate [ Throughout] Blood Pressure O2 Sat by Pulse 100 Oximetry 04/21/18 04/21/18 04/21/18 04:00 04:01 04:52 Temperature Pulse Rate 71 73 Pulse Rate [ 77 From Monitor] Pulse Rate [ Throughout] Respiratory 12 12 10 L Rate Respiratory Rate [ Throughout] Blood Pressure 128/69 O2 Sat by Pulse 100 100 Oximetry 04/21/18 04/21/18 04/21/18 05:01 06:01 07:01 Temperature Pulse Rate 74 75 86 Pulse Rate [ From Monitor] Pulse Rate [ Throughout] Respiratory 14 17 18 Rate Respiratory Rate [ Throughout] Blood Pressure 259/188 259/188 259/188 O2 Sat by Pulse 100 100 Oximetry 04/21/18 04/21/18 04/21/18 08:00 08:43 08:47 Temperature 98.3 F Pulse Rate 82 Pulse Rate [ 82 From Monitor] Pulse Rate [ 85 Throughout] Respiratory 15 Rate Respiratory 20 Rate [ Throughout] Blood Pressure 184/96 O2 Sat by Pulse 100 100 Oximetry 04/21/18 04/21/18 04/21/18 08:48 08:58 10:12 Temperature Pulse Rate 88 93 H Pulse Rate [ From Monitor] Pulse Rate [ 92 H Throughout] Respiratory Rate Respiratory 22 Rate [ Throughout] Blood Pressure 184/96 193/86 O2 Sat by Pulse Oximetry 04/21/18 04/21/18 10:52 11:37 Temperature Pulse Rate 80 76 Pulse Rate [ From Monitor] Pulse Rate [ Throughout] Respiratory 27 H Rate Respiratory Rate [ Throughout] Blood Pressure 199/88 161/77 O2 Sat by Pulse 100 Oximetry Constitutional: no acute distress, other (Elderly looking AAM, normocephalic and atraumatic with mildly increased respiratory effort on MVS) Eyes: non-icteric ENT: oropharynx moist, other (ETT 23 cm STEPHANIE) Neck: supple, no lymphadenopathy, no JVD, other (large neck circumference) Effort: mildly labored Ascultation: Bilateral: diminished breath sounds, rhonchi Percussion: Bilateral: not dull Cardiovascular: regular rate and rhythm Gastrointestinal: normoactive bowel sounds, soft, non-tender, non-distended, other (protuberant) Integumentary: normal Extremities: no cyanosis, no edema, pulses normal, no ischemia or petechiae Neurologic: pupils equal and round, unable to assess Psychiatric: other (unable to assess) CBC and BMP: 04/20/18 04:09 04/21/18 05:00 ABG, PT/INR, D-dimer: ABG POC ABG pH 7.497 (7.35-7.45) H 04/19/18 04:46 POC ABG pCO2 42.9 (35-45) 04/19/18 04:46 POC ABG pO2 119 (80-105) H 04/19/18 04:46 POC ABG HCO3 33.2 04/19/18 04:46 POC ABG Total CO2 35 04/19/18 04:46 POC ABG O2 Sat 99 04/19/18 04:46 Abnormal lab findings: Abnormal Labs 04/09/18 04/09/18 04/09/18 23:16 23:16 23:16 WBC 13.6 H Hct MCHC Plt Count Lymph % (Auto) 9.4 L Gilliam % (Auto) Lymph # Gilliam # Seg Neutrophils % 87.3 H Seg Neutrophils # 11.9 H POC ABG pH POC ABG pCO2 POC ABG pO2 Sodium 132 L Potassium Chloride 92.7 L Carbon Dioxide BUN Glucose 143 H POC Glucose Hemoglobin A1c Lactic Acid 2.10 H* Calcium Phosphorus Magnesium Total Bilirubin 2.20 H Direct Bilirubin AST 107 H Total Creatine Kinase CK-MB (CK-2) C-Reactive Protein Total Protein Albumin 04/10/18 04/10/18 04/10/18 00:38 00:55 01:13 WBC Hct MCHC Plt Count Lymph % (Auto) Gilliam % (Auto) Lymph # Gilliam # Seg Neutrophils % Seg Neutrophils # POC ABG pH POC ABG pCO2 POC ABG pO2 Sodium Potassium Chloride Carbon Dioxide BUN Glucose POC Glucose 117 H 121 H Hemoglobin A1c Lactic Acid 2.10 H* Calcium Phosphorus Magnesium Total Bilirubin Direct Bilirubin AST Total Creatine Kinase CK-MB (CK-2) C-Reactive Protein Total Protein Albumin 04/10/18 04/10/18 04/10/18 02:10 03:51 04:07 WBC 14.0 H Hct MCHC Plt Count Lymph % (Auto) 7.5 L Gilliam % (Auto) Lymph # 1.1 L Gilliam # 1.0 H Seg Neutrophils % 84.9 H Seg Neutrophils # 11.8 H POC ABG pH POC ABG pCO2 POC ABG pO2 Sodium Potassium Chloride Carbon Dioxide BUN Glucose POC Glucose 153 H 158 H Hemoglobin A1c Lactic Acid Calcium Phosphorus Magnesium Total Bilirubin Direct Bilirubin AST Total Creatine Kinase CK-MB (CK-2) C-Reactive Protein Total Protein Albumin 04/10/18 04/10/18 04/10/18 04:07 06:56 09:48 WBC Hct MCHC Plt Count Lymph % (Auto) Gilliam % (Auto) Lymph # Gilliam # Seg Neutrophils % Seg Neutrophils # POC ABG pH POC ABG pCO2 POC ABG pO2 Sodium 130 L Potassium Chloride 93.4 L Carbon Dioxide BUN Glucose 180 H POC Glucose 251 H 245 H Hemoglobin A1c Lactic Acid Calcium 7.9 L D Phosphorus Magnesium Total Bilirubin Direct Bilirubin AST Total Creatine Kinase 7857 H CK-MB (CK-2) 34.3 H C-Reactive Protein Total Protein Albumin 04/10/18 04/10/18 04/10/18 10:37 12:44 17:31 WBC Hct MCHC Plt Count Lymph % (Auto) Gilliam % (Auto) Lymph # Gilliam # Seg Neutrophils % Seg Neutrophils # POC ABG pH POC ABG pCO2 45.6 H POC ABG pO2 374 H Sodium Potassium Chloride Carbon Dioxide BUN Glucose POC Glucose 348 H Hemoglobin A1c Lactic Acid Calcium Phosphorus Magnesium Total Bilirubin Direct Bilirubin AST Total Creatine Kinase 9880 H CK-MB (CK-2) 30.0 H C-Reactive Protein Total Protein Albumin 04/10/18 04/11/18 04/11/18 23:36 03:52 04:28 WBC 12.2 H Hct MCHC Plt Count 132 L Lymph % (Auto) Gilliam % (Auto) 10.2 H Lymph # Gilliam # 1.2 H Seg Neutrophils % 75.1 H Seg Neutrophils # 9.1 H POC ABG pH 7.495 H POC ABG pCO2 32.4 L POC ABG pO2 Sodium Potassium Chloride Carbon Dioxide BUN Glucose POC Glucose 148 H Hemoglobin A1c Lactic Acid Calcium Phosphorus Magnesium Total Bilirubin Direct Bilirubin AST Total Creatine Kinase CK-MB (CK-2) C-Reactive Protein Total Protein Albumin 04/11/18 04/11/18 04/11/18 04:28 04:28 05:22 WBC Hct MCHC Plt Count Lymph % (Auto) Gilliam % (Auto) Lymph # Gilliam # Seg Neutrophils % Seg Neutrophils # POC ABG pH POC ABG pCO2 POC ABG pO2 Sodium 133 L Potassium 3.5 L Chloride 95.1 L Carbon Dioxide BUN 7 L Glucose 206 H POC Glucose 178 H Hemoglobin A1c 6.4 H Lactic Acid Calcium 7.7 L Phosphorus 1.80 L Magnesium 1.50 L Total Bilirubin 4.10 H Direct Bilirubin AST 168 H Total Creatine Kinase 9352 H CK-MB (CK-2) C-Reactive Protein Total Protein Albumin 3.4 L 04/11/18 04/11/18 04/11/18 11:28 13:43 17:30 WBC Hct MCHC Plt Count Lymph % (Auto) Gilliam % (Auto) Lymph # Gilliam # Seg Neutrophils % Seg Neutrophils # POC ABG pH POC ABG pCO2 POC ABG pO2 Sodium Potassium Chloride Carbon Dioxide BUN Glucose POC Glucose 196 H 142 H Hemoglobin A1c Lactic Acid Calcium Phosphorus Magnesium Total Bilirubin Direct Bilirubin AST Total Creatine Kinase CK-MB (CK-2) C-Reactive Protein 7.20 H Total Protein Albumin 04/11/18 04/11/18 04/12/18 18:59 23:23 04:00 WBC Hct MCHC Plt Count Lymph % (Auto) Gilliam % (Auto) Lymph # Gilliam # Seg Neutrophils % Seg Neutrophils # POC ABG pH 7.489 H POC ABG pCO2 34.5 L POC ABG pO2 Sodium Potassium 3.3 L Chloride Carbon Dioxide BUN 6 L Glucose 151 H POC Glucose 129 H Hemoglobin A1c Lactic Acid Calcium 7.3 L Phosphorus 2.00 L Magnesium Total Bilirubin 2.80 H Direct Bilirubin AST 121 H Total Creatine Kinase 5177 H CK-MB (CK-2) C-Reactive Protein Total Protein 5.9 L Albumin 3.1 L 04/12/18 04/12/18 04/12/18 04:00 04:04 05:21 WBC Hct 34.9 L MCHC 35 H Plt Count 128 L Lymph % (Auto) Gilliam % (Auto) 10.6 H Lymph # Gilliam # 0.9 H Seg Neutrophils % Seg Neutrophils # POC ABG pH 7.454 H POC ABG pCO2 POC ABG pO2 Sodium Potassium Chloride Carbon Dioxide BUN Glucose POC Glucose 136 H Hemoglobin A1c Lactic Acid Calcium Phosphorus Magnesium Total Bilirubin Direct Bilirubin AST Total Creatine Kinase CK-MB (CK-2) C-Reactive Protein Total Protein Albumin 04/12/18 04/13/18 04/13/18 11:23 00:21 04:57 WBC Hct MCHC Plt Count Lymph % (Auto) Gilliam % (Auto) Lymph # Gilliam # Seg Neutrophils % Seg Neutrophils # POC ABG pH POC ABG pCO2 34.7 L POC ABG pO2 125 H Sodium Potassium Chloride Carbon Dioxide BUN Glucose POC Glucose 166 H 143 H Hemoglobin A1c Lactic Acid Calcium Phosphorus Magnesium Total Bilirubin Direct Bilirubin AST Total Creatine Kinase CK-MB (CK-2) C-Reactive Protein Total Protein Albumin 04/13/18 04/13/18 04/13/18 05:02 05:02 12:16 WBC Hct MCHC Plt Count Lymph % (Auto) Gilliam % (Auto) Lymph # Gilliam # Seg Neutrophils % Seg Neutrophils # POC ABG pH POC ABG pCO2 POC ABG pO2 Sodium Potassium Chloride Carbon Dioxide BUN Glucose POC Glucose 161 H 170 H Hemoglobin A1c Lactic Acid Calcium Phosphorus Magnesium Total Bilirubin Direct Bilirubin AST Total Creatine Kinase 3456 H CK-MB (CK-2) C-Reactive Protein Total Protein Albumin 04/13/18 04/13/18 04/14/18 18:52 23:09 04:35 WBC Hct MCHC Plt Count Lymph % (Auto) Gilliam % (Auto) Lymph # Gilliam # Seg Neutrophils % Seg Neutrophils # POC ABG pH 7.467 H POC ABG pCO2 POC ABG pO2 Sodium Potassium Chloride Carbon Dioxide BUN Glucose POC Glucose 196 H 219 H Hemoglobin A1c Lactic Acid Calcium Phosphorus Magnesium Total Bilirubin Direct Bilirubin AST Total Creatine Kinase CK-MB (CK-2) C-Reactive Protein Total Protein Albumin 04/14/18 04/14/18 04/14/18 05:00 05:26 11:20 WBC Hct MCHC Plt Count Lymph % (Auto) Gilliam % (Auto) Lymph # Gilliam # Seg Neutrophils % Seg Neutrophils # POC ABG pH POC ABG pCO2 POC ABG pO2 Sodium Potassium Chloride Carbon Dioxide BUN Glucose POC Glucose 249 H 260 H Hemoglobin A1c Lactic Acid Calcium Phosphorus Magnesium Total Bilirubin Direct Bilirubin AST Total Creatine Kinase 2247 H CK-MB (CK-2) C-Reactive Protein Total Protein Albumin 04/14/18 04/14/18 04/14/18 17:04 17:51 23:53 WBC Hct MCHC Plt Count Lymph % (Auto) Gilliam % (Auto) Lymph # Gilliam # Seg Neutrophils % Seg Neutrophils # POC ABG pH POC ABG pCO2 POC ABG pO2 79 L Sodium Potassium Chloride Carbon Dioxide BUN Glucose POC Glucose 284 H 203 H Hemoglobin A1c Lactic Acid Calcium Phosphorus Magnesium Total Bilirubin Direct Bilirubin AST Total Creatine Kinase CK-MB (CK-2) C-Reactive Protein Total Protein Albumin 04/15/18 04/15/18 04/15/18 04:24 05:26 12:56 WBC Hct MCHC Plt Count Lymph % (Auto) Gilliam % (Auto) Lymph # Gilliam # Seg Neutrophils % Seg Neutrophils # POC ABG pH POC ABG pCO2 45.4 H POC ABG pO2 78 L Sodium Potassium Chloride Carbon Dioxide BUN Glucose POC Glucose 194 H 200 H Hemoglobin A1c Lactic Acid Calcium Phosphorus Magnesium Total Bilirubin Direct Bilirubin AST Total Creatine Kinase CK-MB (CK-2) C-Reactive Protein Total Protein Albumin 04/15/18 04/15/18 04/16/18 17:46 23:57 05:08 WBC Hct MCHC Plt Count Lymph % (Auto) Gilliam % (Auto) Lymph # Gilliam # Seg Neutrophils % Seg Neutrophils # POC ABG pH POC ABG pCO2 POC ABG pO2 Sodium Potassium Chloride Carbon Dioxide BUN Glucose POC Glucose 118 H 204 H 221 H Hemoglobin A1c Lactic Acid Calcium Phosphorus Magnesium Total Bilirubin Direct Bilirubin AST Total Creatine Kinase CK-MB (CK-2) C-Reactive Protein Total Protein Albumin 04/16/18 04/16/18 04/16/18 05:16 12:23 13:07 WBC Hct MCHC Plt Count Lymph % (Auto) Gilliam % (Auto) Lymph # Gilliam # Seg Neutrophils % Seg Neutrophils # POC ABG pH 7.456 H POC ABG pCO2 46.7 H POC ABG pO2 Sodium Potassium Chloride Carbon Dioxide BUN Glucose POC Glucose 271 H Hemoglobin A1c Lactic Acid Calcium Phosphorus Magnesium Total Bilirubin Direct Bilirubin AST Total Creatine Kinase CK-MB (CK-2) C-Reactive Protein Total Protein Albumin 04/16/18 04/17/18 04/17/18 19:14 00:08 05:46 WBC Hct MCHC Plt Count Lymph % (Auto) Gilliam % (Auto) Lymph # Gilliam # Seg Neutrophils % Seg Neutrophils # POC ABG pH POC ABG pCO2 POC ABG pO2 Sodium Potassium Chloride Carbon Dioxide BUN Glucose POC Glucose 221 H 238 H 274 H Hemoglobin A1c Lactic Acid Calcium Phosphorus Magnesium Total Bilirubin Direct Bilirubin AST Total Creatine Kinase CK-MB (CK-2) C-Reactive Protein Total Protein Albumin 04/17/18 04/17/18 04/17/18 13:50 13:59 14:20 WBC Hct MCHC Plt Count Lymph % (Auto) Gilliam % (Auto) Lymph # Gilliam # Seg Neutrophils % Seg Neutrophils # POC ABG pH 7.474 H POC ABG pCO2 POC ABG pO2 Sodium Potassium 3.4 L Chloride 93.6 L Carbon Dioxide 33 H BUN Glucose 305 H POC Glucose 315 H Hemoglobin A1c Lactic Acid Calcium Phosphorus Magnesium Total Bilirubin Direct Bilirubin AST Total Creatine Kinase CK-MB (CK-2) C-Reactive Protein Total Protein Albumin 04/17/18 04/17/18 04/18/18 17:04 23:26 04:20 WBC Hct MCHC Plt Count Lymph % (Auto) Gilliam % (Auto) Lymph # Gilliam # Seg Neutrophils % Seg Neutrophils # POC ABG pH 7.473 H POC ABG pCO2 POC ABG pO2 Sodium Potassium Chloride Carbon Dioxide BUN Glucose POC Glucose 280 H 284 H Hemoglobin A1c Lactic Acid Calcium Phosphorus Magnesium Total Bilirubin Direct Bilirubin AST Total Creatine Kinase CK-MB (CK-2) C-Reactive Protein Total Protein Albumin 04/18/18 04/18/18 04/18/18 05:14 08:32 11:00 WBC Hct MCHC Plt Count Lymph % (Auto) Gilliam % (Auto) Lymph # Gilliam # Seg Neutrophils % Seg Neutrophils # POC ABG pH POC ABG pCO2 POC ABG pO2 Sodium Potassium Chloride Carbon Dioxide BUN Glucose POC Glucose 286 H 296 H Hemoglobin A1c Lactic Acid Calcium Phosphorus Magnesium Total Bilirubin Direct Bilirubin 0.3 H AST 87 H Total Creatine Kinase CK-MB (CK-2) C-Reactive Protein Total Protein Albumin 3.7 L 04/18/18 04/18/18 04/19/18 12:03 18:15 00:08 WBC Hct MCHC Plt Count Lymph % (Auto) Gilliam % (Auto) Lymph # Gilliam # Seg Neutrophils % Seg Neutrophils # POC ABG pH POC ABG pCO2 POC ABG pO2 Sodium Potassium Chloride Carbon Dioxide BUN Glucose POC Glucose 353 H 327 H 331 H Hemoglobin A1c Lactic Acid Calcium Phosphorus Magnesium Total Bilirubin Direct Bilirubin AST Total Creatine Kinase CK-MB (CK-2) C-Reactive Protein Total Protein Albumin 04/19/18 04/19/18 04/19/18 04:46 05:26 11:48 WBC Hct MCHC Plt Count Lymph % (Auto) Gilliam % (Auto) Lymph # Gilliam # Seg Neutrophils % Seg Neutrophils # POC ABG pH 7.497 H POC ABG pCO2 POC ABG pO2 119 H Sodium Potassium Chloride Carbon Dioxide BUN Glucose POC Glucose 323 H 266 H Hemoglobin A1c Lactic Acid Calcium Phosphorus Magnesium Total Bilirubin Direct Bilirubin AST Total Creatine Kinase CK-MB (CK-2) C-Reactive Protein Total Protein Albumin 04/19/18 04/19/18 04/20/18 17:52 23:37 00:07 WBC Hct MCHC Plt Count Lymph % (Auto) Gilliam % (Auto) Lymph # Gilliam # Seg Neutrophils % Seg Neutrophils # POC ABG pH POC ABG pCO2 POC ABG pO2 Sodium Potassium Chloride Carbon Dioxide BUN Glucose POC Glucose 284 H 285 H 312 H Hemoglobin A1c Lactic Acid Calcium Phosphorus Magnesium Total Bilirubin Direct Bilirubin AST Total Creatine Kinase CK-MB (CK-2) C-Reactive Protein Total Protein Albumin 04/20/18 04/20/18 04/20/18 04:09 04:09 04:37 WBC Hct 34.7 L MCHC 35 H Plt Count Lymph % (Auto) Gilliam % (Auto) Lymph # Gilliam # Seg Neutrophils % Seg Neutrophils # POC ABG pH POC ABG pCO2 POC ABG pO2 Sodium Potassium 3.5 L Chloride 95.7 L Carbon Dioxide 34 H BUN Glucose 286 H POC Glucose 267 H Hemoglobin A1c Lactic Acid Calcium Phosphorus Magnesium Total Bilirubin Direct Bilirubin AST Total Creatine Kinase CK-MB (CK-2) C-Reactive Protein Total Protein Albumin 04/20/18 04/20/18 04/20/18 12:32 17:54 21:07 WBC Hct MCHC Plt Count Lymph % (Auto) Gilliam % (Auto) Lymph # Gilliam # Seg Neutrophils % Seg Neutrophils # POC ABG pH POC ABG pCO2 POC ABG pO2 Sodium Potassium Chloride Carbon Dioxide BUN Glucose POC Glucose 220 H 298 H 187 H Hemoglobin A1c Lactic Acid Calcium Phosphorus Magnesium Total Bilirubin Direct Bilirubin AST Total Creatine Kinase CK-MB (CK-2) C-Reactive Protein Total Protein Albumin 04/21/18 04/21/18 04/21/18 00:04 05:00 05:41 WBC Hct MCHC Plt Count Lymph % (Auto) Gilliam % (Auto) Lymph # Gilliam # Seg Neutrophils % Seg Neutrophils # POC ABG pH POC ABG pCO2 POC ABG pO2 Sodium Potassium Chloride 95.2 L Carbon Dioxide 34 H BUN Glucose 179 H POC Glucose 183 H 166 H Hemoglobin A1c Lactic Acid Calcium Phosphorus Magnesium Total Bilirubin Direct Bilirubin AST Total Creatine Kinase CK-MB (CK-2) C-Reactive Protein Total Protein Albumin Allied health notes reviewed: RT
--- NOTE | 2018-04-21 12:45 | Progress Note ---
Assessment and Plan Assessment and plan: Acute respiratory failure with hypoxia -s/p intubation on MV -pulmonology following Hypokalemia -resolved s/p repletion, will monitor Severe sepsis 2/2 aspiration PNA -resolved -off antibiotics Aspiration Pneumonia -completed antibiotics DM II with hyperglycemia -BG improved -cont current insulin regimen and adjust as needed Toxic metabolic encephalopathy -no significant change in ms -EEG abnormal -MRI brain neg -neurology following Seizure, new onset -probably 2/2 hypoglycemia recorded by EMS staff prior to admission -stable on Keppra -cont seizure precautions Critical Illness Myopathy -cont supportive care Thrombocytopenia -level improved, will monitor Transaminitis -levels improved -Hepatitis panel neg -Abd US neg Rhabdomyolysis -improved Hypophosphatemia -resolved HTN -uncontrolled, meds adjusted Moderate protein calorie malnutrition -on tube feeding -graphics production specialist following DVT/GI prophylaxis with Lovenox and famotidine Disp: Overall prognosis is poor. Cont current mgx History Interval history: Pt barely opens eyes to sternal rub. No reported issue overnight Hospitalist Physical - Constitutional Vitals: Temp Pulse Resp BP Pulse Ox 98.3 F 78 19 159/69 96 04/21/18 08:00 04/21/18 12:00 04/21/18 12:00 04/21/18 12:00 04/21/18 12:00 General appearance: Present: no acute distress, other (intubated on vent) - EENT Eyes: Present: PERRL, EOM intact ENT: other (pt is intubated) - Neck Neck: Present: supple - Respiratory Respiratory effort: normal Respiratory: bilateral: CTA - Cardiovascular Rhythm: regular Heart Sounds: Present: S1 & S2 - Extremities Extremities: No edema - Abdominal General gastrointestinal: soft, non-tender, normal bowel sounds - Neurologic Neurologic: other (Pt is intubated and unable to follow commands) Results - Labs CBC & Chem 7: 04/20/18 04:09 04/21/18 05:00 Labs: Laboratory Last Values WBC 8.7 K/mm3 (4.5-11.0) 04/20/18 04:09 RBC 3.94 M/mm3 (3.65-5.03) 04/20/18 04:09 Hgb 12.0 gm/dl (11.8-15.2) 04/20/18 04:09 Hct 34.7 % (35.5-45.6) L 04/20/18 04:09 MCV 88 fl (84-94) 04/20/18 04:09 MCH 31 pg (28-32) 04/20/18 04:09 MCHC 35 % (32-34) H 04/20/18 04:09 RDW 14.7 % (13.2-15.2) 04/20/18 04:09 Plt Count 166 K/mm3 (140-440) 04/20/18 04:09 Lymph % (Auto) 21.7 % (13.4-35.0) 04/12/18 04:00 [place] % (Auto) 10.6 % (0.0-7.3) H 04/12/18 04:00 Eos % (Auto) 1.2 % (0.0-4.3) 04/12/18 04:00 Baso % (Auto) 0.7 % (0.0-1.8) 04/12/18 04:00 Lymph # 1.8 K/mm3 (1.2-5.4) 04/12/18 04:00 [place] # 0.9 K/mm3 (0.0-0.8) H 04/12/18 04:00 Eos # 0.1 K/mm3 (0.0-0.4) 04/12/18 04:00 Baso # 0.1 K/mm3 (0.0-0.1) 04/12/18 04:00 Seg Neutrophils % 65.8 % (40.0-70.0) 04/12/18 04:00 Seg Neutrophils # 5.3 K/mm3 (1.8-7.7) 04/12/18 04:00 APTT 24.8 Sec. (24.2-36.6) 04/09/18 23:16 POC ABG pH 7.497 (7.35-7.45) H 04/19/18 04:46 POC ABG pCO2 42.9 (35-45) 04/19/18 04:46 POC ABG pO2 119 (80-105) H 04/19/18 04:46 POC ABG HCO3 33.2 04/19/18 04:46 POC ABG Total CO2 35 04/19/18 04:46 POC ABG O2 Sat 99 04/19/18 04:46 POC ABG Base Excess 10 04/19/18 04:46 FiO2 30 % 04/19/18 04:46 Sodium 139 mmol/L (137-145) 04/21/18 05:00 Potassium 3.8 mmol/L (3.6-5.0) 04/21/18 05:00 Chloride 95.2 mmol/L (98-107) L 04/21/18 05:00 Carbon Dioxide 34 mmol/L (22-30) H 04/21/18 05:00 Anion Gap 14 mmol/L 04/21/18 05:00 BUN 11 mg/dL (9-20) 04/21/18 05:00 Creatinine 0.8 mg/dL (0.8-1.5) 04/21/18 05:00 Estimated GFR > 60 ml/min 04/21/18 05:00 BUN/Creatinine Ratio 14 % 04/21/18 05:00 Glucose 179 mg/dL (75-100) H 04/21/18 05:00 POC Glucose 219 (70-105) H 04/21/18 11:55 Hemoglobin A1c 6.4 % (4-6) H 04/11/18 04:28 Lactic Acid 1.70 mmol/L (0.7-2.0) 04/10/18 02:47 Calcium 9.0 mg/dL (8.4-10.2) 04/21/18 05:00 Phosphorus 3.60 mg/dL (2.5-4.5) 04/21/18 05:00 Magnesium 2.10 mg/dL (1.7-2.3) 04/21/18 05:00 Total Bilirubin 1.20 mg/dL (0.1-1.2) 04/18/18 11:00 Direct Bilirubin 0.3 mg/dL (0-0.2) H 04/18/18 11:00 Indirect Bilirubin 0.9 mg/dL 04/18/18 11:00 AST 87 units/L (5-40) H 04/18/18 11:00 ALT 39 units/L (7-56) 04/18/18 11:00 Alkaline Phosphatase 59 units/L (35-129) 04/18/18 11:00 Total Creatine Kinase 2247 units/L (55-170) H 04/14/18 05:00 CK-MB (CK-2) 30.0 ng/mL (0.0-4.0) H 04/10/18 10:37 CK-MB (CK-2) Rel Index 0.3 (0-4) 04/10/18 10:37 Troponin T < 0.010 ng/mL (0.00-0.029) 04/10/18 10:37 C-Reactive Protein 7.20 mg/dL (0.00-1.30) H 04/11/18 13:43 Total Protein 6.8 g/dL (6.3-8.2) 04/18/18 11:00 Albumin 3.7 g/dL (3.9-5) L 04/18/18 11:00 Albumin/Globulin Ratio 1.2 % 04/18/18 11:00 Urine Color Yellow (Yellow) 04/10/18 01:07 Urine Turbidity Clear (Clear) 04/10/18 01:07 Urine pH 5.0 (5.0-7.0) 04/10/18 01:07 Ur Specific [place] 1.019 (1.003-1.030) 04/10/18 01:07 Urine Protein 100 mg/dl mg/dL (Negative) 04/10/18 01:07 Urine Glucose (UA) Neg mg/dL (Negative) 04/10/18 01:07 Urine Ketones Neg mg/dL (Negative) 04/10/18 01:07 Urine Blood Lg (Negative) 04/10/18 01:07 Urine Nitrite Neg (Negative) 04/10/18 01:07 Urine Bilirubin Neg (Negative) 04/10/18 01:07 Urine Urobilinogen < 2.0 mg/dL (<2.0) 04/10/18 01:07 Ur Leukocyte Esterase Neg (Negative) 04/10/18 01:07 Urine WBC (Auto) 1.0 /HPF (0.0-6.0) 04/10/18 01:07 Urine RBC (Auto) 9.0 /HPF (0.0-6.0) 04/10/18 01:07 U Epithel Cells (Auto) < 1.0 /HPF (0-13.0) 04/10/18 01:07 Urine Mucus Few /HPF 04/10/18 01:07 Levetiracetam 25.2 mcg/mL 04/12/18 20:37 Hepatitis A IgM Ab Non-reactive (NonReactive) 04/14/18 14:56 Hep Bs Antigen Non-reactive (Negative) 04/14/18 14:56 Hep B Core IgM Ab Non-reactive (NonReactive) 04/14/18 14:56 Hepatitis C Antibody Non-reactive (NonReactive) 04/14/18 14:56 Influenza A (Rapid) Negative (Negative) 04/11/18 15:08 Influenza B (Rapid) Negative (Negative) 04/11/18 15:08 Nutrition/Malnutrition Assess - Dietary Evaluation Nutrition/Malnutrition Findings: Nutrition Notes Start: 04/11/18 10:20 Freq: Status: Active Protocol: Document 04/19/18 13:52 CP (Rec: 04/19/18 14:17 CP [id number]) Co-Sign 04/19/18 13:52 LP Nutrition Notes Need for Assessment generated from: MD Order Initial or Follow up Assessment Current Diagnosis Coronary Artery Disease Diabetes Hypertension Respiratory Failure Other Pertinent Diagnosis Pneu, new onset seizures, acute encephalopathy Current Diet TF - Vital High Protein at 60ml/hr Labs/Tests BG 266 Pertinent Medications Reviewed Height 5 ft 9 in Weight 97 kg Mineral Body Weight (kg) 72.72 BMI 31.6 Subjective/Other Information MD consult for TF with lower CHO d/t high BG as discussed in rounds. Vital AF will be ordered. Burn Absent Trauma Absent #1 Nutrition Diagnosis Inadequate oral intake Diagnosis Progress(for reassessment Continues documentation) Is patient on ventilator? Yes Is Patient Ambulatory and/or Out of Bed No REE-([facility]-confined to bed) 2021.780 Kcal/Kg value to use for calculation 16 Approximate Energy Requirements Using 1552 kcal/Kg Calculation Used for Recommendations Kcal/kg Additional Notes Pro needs 2g/kg IBW: 145g/day Fluid needs 1ml/kcal Nutrition Intervention Change Diet Order: Vital AF 1.2 Nutrition Support: Change TF to Vital 1.2 at 50 mL/hr. Water flush 80 mL q4h. Kcal 1,440 Protein (gm) 90 Carbohydrates (gm) 133 Fluid (mL) 1,200 Goal #1 TF to start Anticipated Discharge Needs: Unable to determine at this time Follow-Up By: 04/22/18 Additional Comments F/U: TF to start
--- NOTE | 2018-04-21 18:49 | Progress Note ---
Assessment and Plan Cultures: Blood culture 04/09/2018 no growth so far Urine culture 04/10/2018 no growth so far Sputum culture 04/10/2018 upper respiratory mikayla. Assessment: 78 y/o male with history of hypertension, diabetes, coronary artery disease; admitted on 04/09/2018 due to be found unresponsive at home when the family has not heard from him. EMS was called, his blood sugar was undetectable: 1) Sepsis: resolved. Etiology most likely aspiration pneumonia. Blood culture 04/11/2018 no growth so far. UA neg. CRP=7 2) Presumed aspiration versus CAP: CXR focal infiltrate RLL. Sputum culture 04/10/2018 upper respiratory mikayla. Influenza neg. 3) Acute respiratory failure:on vent, from encephalopathy/pneumonia 4) Generalized seizures: from hypoglycemia, resolved 5) Elevated LFTs: better; from sepsis or other etiologies? rhabdo, better. Viral hepatitis serology all negative. US no visualized GB. LFTs better 6) Acute encephalopathy: post seizures/ischemia. somnolent 7) Rhabdomyolysis: better Recommendations: - noted fever 3/2 check blood cx and CXR - completed ceftriaxone D5 of 5, azithromycin D5 of 5 on 04/17/2018 and flagyl D5 of 5 to cover CAP versus aspiration pneumonia - monitor mentation Tiffanie Crowe MD Infectious Diseases Software Program Manager [facility] ([facility]) M [phone] O [phone] Subjective Date of service: 04/21/18 Principal diagnosis: Ac Hypoxemic Resp Failure; Seizures; Encephalopathy; DM II; Rhabdomyolysis Interval history: Remains intubatedon BIPAP, off sedation, open eyes, fever 100.2 yest ROS: unable to obtain Objective - Exam Narrative Exam: General appearance: open eyes, intubated on BIPAP in NAD Eyes: anicteric sclerae, moist conjunctivae; no lid-lag; PERRLA HENT: Atraumatic; oropharynx ETT/NGT Neck: Trachea midline; supple, no thyromegaly or lymphadenopathy Lungs: griffin coarse BS CV:bradycardic Abdomen: Soft, non-tender; no masses or hepatosplenomegaly Extremities: No peripheral edema or extremity lymphadenopathy Skin: Normal temperature, turgor and texture; no rash, ulcers or subcutaneous nodules Psych: somnolent Neuro: somnolent Condom cath - Constitutional Vitals: Vital Signs Temp Pulse Resp BP Pulse Ox 99 F 83 19 188/62 98 04/21/18 16:00 04/21/18 18:01 04/21/18 18:01 04/21/18 18:01 04/21/18 18:01 Temperature -Last 24 Hours Temperature 99 F Temperature 99.3 F Temperature 98.3 F Temperature 99.3 F Temperature 99.4 F Temperature 99.8 F - Labs CBC & Chem 7: 04/20/18 04:09 04/21/18 05:00 Labs: Abnormal lab results 04/20/18 04/21/18 04/21/18 Range/Units 21:07 00:04 05:00 Chloride 95.2 L (98-107) mmol/L Carbon Dioxide 34 H (22-30) mmol/L Glucose 179 H (75-100) mg/dL POC Glucose 187 H 183 H (70-105) 04/21/18 04/21/18 04/21/18 Range/Units 05:41 11:55 18:09 Chloride (98-107) mmol/L Carbon Dioxide (22-30) mmol/L Glucose (75-100) mg/dL POC Glucose 166 H 219 H 247 H (70-105)
--- NOTE | 2018-04-21 19:35 | XRay Report ---
PROCEDURE: XR CHEST 1V AP HISTORY: new fever ? pneumonia FINDINGS: Frontal view of the chest was acquired and compared to the prior examination of March. The heart is normal in size. There is an endotracheal tube with its tip in appropriate position. Ther e is a nasogastric tube which extends into the stomach. There is a left-sided PICC line with its tip in superior vena cava. There is no pneumothorax. IMPRESSION: No active disease in the chest This document is electronically signed by Geoffrey King MD., April 21 2018 07:33:23 PM ET
[2018-04-22 04:18] LABS: Basophils # (Auto) 0.1 K/mm3 (0.0-0.1); Basophils % (Auto) 0.8 % (0.0-1.8); Eosinophils # (Auto) 0.3 K/mm3 (0.0-0.4); Eosinophils % (Auto) 3.5 % (0.0-4.3); Hematocrit 36.4 % (35.5-45.6); Hemoglobin 12.6 gm/dl (11.8-15.2); Lymphocytes % (Auto) 21.2 % (13.4-35.0); Mean Corpuscular HGB Conc 35 % (32-34); Mean Corpuscular Volume 89 fl (84-94); Monocytes # (Auto) 0.7 K/mm3 (0.0-0.8); Platelet Count 197 K/mm3 (140-440); Red Cell Distribution Width 15.3 % (13.2-15.2)
[2018-04-22 04:29] LABS: BUN/Creatinine Ratio 18; Blood Urea Nitrogen 16 mg/dL (9-20); Hemolysis Index 10
[2018-04-22] MEDS: HumaLOG SUB-Q SCH ×3 (06:20→19:00)
[2018-04-22] MEDS: HumuLIN R SUB-Q SCH ×3 (07:52→19:38)
--- NOTE | 2018-04-22 08:23 | Progress Note ---
Assessment and Plan Assessment and plan: 78-year-old male patient with significant history of hypertension diabetes coronary artery disease was admitted through emergency room with history of unresponsiveness at home for unknown Duration of time. At that time he had hypoglycemia and seizure activity, Patient was unable to protect his airway and was intubated on ventilatory support admitted to ICU also with concern of Aspiration Pneumonia Hospital course -Neuro: Patient had CT scan 2 days should not show acute abnormality. 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 The family wants to continue aggressive care. If the patient is not able, he will most likely need to be trached and peg FEN; his electrolytes namely potassium and phosphate were repleted ID; the patient received empiric antibiotics for pneumonia, Cultures including blood, urine and sputum has remained without growth Musculoskeletal; Traumatic Rhabdomyolysis; status post IV fluids and improved, His medications were optimized for his chronic conditions Neuro: Unresponsive CXR: Concerning for Focal RLL infiltrate Diagnosis Acute respiratory failure with hypoxia -s/p intubation on MV Greater than 96hr -pulmonology following Acute Toxic metabolic encephalopathy Likely secondary to Hypoxic Ischemic Ence phalopathy -no significant change in ms -EEG abnormal -MRI brain neg -neurology following -Maintain sleep wake cycle Hypokalemia -resolved s/p repletion, will monitor Severe sepsis 2/2 aspiration PNA -resolved -off antibiotics FOLLOWING TREATMENT WITH ROCEPHIN AND FLAGYL Aspiration Pneumonia -completed antibiotics DM II with hyperglycemia - Was hypoglycemic on admission -BG improved -cont current insulin regimen and adjust as needed Seizure, new onset -probably 2/2 hypoglycemia recorded by EMS staff prior to admission -stable on Keppra -cont seizure precautions Critical Illness Myopathy -cont supportive care Thrombocytopenia -level improved, will monitor Transaminitis -levels improved -Hepatitis panel neg -Abd US neg Rhabdomyolysis -improved Hypophosphatemia -resolved HTN -uncontrolled, meds adjusted Moderate protein calorie malnutrition -on tube feeding -cardiology technologist following Morbid obeisty: Supportive care and counselling when awake DVT/GI prophylaxis with Lovenox and famotidine Poor Prognosis Trach/Peg and possible LTAC eval The high probability of a clinically significant, sudden or life threatening deterioration of the [Neurology, Pulmonary] system(s) required my full and direct attention, intervention and personal management. The aggregate critical care time was [35] minutes. This time is in addition to time spent performing reported procedures but includes the following: [x] Data Review and interpretation [x] Patient assessment and monitoring of vital signs [x] Documentation [x] Medication orders and management History Interval history: Patient seen and examined, Remains unresponsive. No overnight issues reported. Patient remains off sedation and not responsive. Hospitalist Physical - Physical exam Narrative exam: VITAL SIGNS: Reviewed. GENERAL: The patient appeared well nourished and normally developed. Release and mechanical ventilation. Ventilatory support unresponsive. Vital signs as documented. HEAD: No signs of head trauma. EYES: Pupils are equal. Sluggish response to light.. EARS: Unable to assess MOUTH: ET tube in place. NECK: No adenopathy, no JVD. CHEST: Chest with clear breath sounds bilaterally. No wheezes, rales, or rhonchi. CARDIAC: Regular rate and rhythm. S1 and S2, without murmurs, gallops, or rubs. VASCULAR: No Edema. Peripheral pulses normal and equal in all extremities. ABDOMEN: Soft, without detectable tenderness. No sign of distention. No rebound or guarding, and no masses palpated. Bowel Sounds normal. MUSCULOSKELETAL: Unable to assess Extremities without clubbing, cyanosis or edema. NEUROLOGIC EXAM: Unresponsive PSYCHIATRIC: Unable to assess SKIN: No rash or lesions. - Constitutional Vitals: Temp Pulse Resp BP Pulse Ox 97.9 F 60 18 135/68 100 04/22/18 08:00 04/22/18 08:00 04/22/18 08:00 04/22/18 08:00 04/22/18 08:00 General appearance: Present: no acute distress, other (intubated on vent) Results - Labs CBC & Chem 7: 04/22/18 04:07 04/22/18 04:07 Labs: Laboratory Last Values WBC 9.7 K/mm3 (4.5-11.0) 04/22/18 04:07 RBC 4.10 M/mm3 (3.65-5.03) 04/22/18 04:07 Hgb 12.6 gm/dl (11.8-15.2) 04/22/18 04:07 Hct 36.4 % (35.5-45.6) 04/22/18 04:07 MCV 89 fl (84-94) 04/22/18 04:07 MCH 31 pg (28-32) 04/22/18 04:07 MCHC 35 % (32-34) H 04/22/18 04:07 RDW 15.3 % (13.2-15.2) H 04/22/18 04:07 Plt Count 197 K/mm3 (140-440) 04/22/18 04:07 Lymph % (Auto) 21.2 % (13.4-35.0) 04/22/18 04:07 [place] % (Auto) 7.0 % (0.0-7.3) 04/22/18 04:07 Eos % (Auto) 3.5 % (0.0-4.3) 04/22/18 04:07 Baso % (Auto) 0.8 % (0.0-1.8) 04/22/18 04:07 Lymph # 2.0 K/mm3 (1.2-5.4) 04/22/18 04:07 [place] # 0.7 K/mm3 (0.0-0.8) 04/22/18 04:07 Eos # 0.3 K/mm3 (0.0-0.4) 04/22/18 04:07 Baso # 0.1 K/mm3 (0.0-0.1) 04/22/18 04:07 Seg Neutrophils % 67.5 % (40.0-70.0) 04/22/18 04:07 Seg Neutrophils # 6.5 K/mm3 (1.8-7.7) 04/22/18 04:07 APTT 24.8 Sec. (24.2-36.6) 04/09/18 23:16 POC ABG pH 7.497 (7.35-7.45) H 04/19/18 04:46 POC ABG pCO2 42.9 (35-45) 04/19/18 04:46 POC ABG pO2 119 (80-105) H 04/19/18 04:46 POC ABG HCO3 33.2 04/19/18 04:46 POC ABG Total CO2 35 04/19/18 04:46 POC ABG O2 Sat 99 04/19/18 04:46 POC ABG Base Excess 10 04/19/18 04:46 FiO2 30 % 04/19/18 04:46 Sodium 138 mmol/L (137-145) 04/22/18 04:07 Potassium 4.1 mmol/L (3.6-5.0) 04/22/18 04:07 Chloride 97.4 mmol/L (98-107) L 04/22/18 04:07 Carbon Dioxide 31 mmol/L (22-30) H 04/22/18 04:07 Anion Gap 14 mmol/L 04/22/18 04:07 BUN 16 mg/dL (9-20) 04/22/18 04:07 Creatinine 0.9 mg/dL (0.8-1.5) 04/22/18 04:07 Estimated GFR > 60 ml/min 04/22/18 04:07 BUN/Creatinine Ratio 18 % 04/22/18 04:07 Glucose 177 mg/dL (75-100) H 04/22/18 04:07 POC Glucose 200 (70-105) H 04/22/18 05:08 Hemoglobin A1c 6.4 % (4-6) H 04/11/18 04:28 Lactic Acid 1.70 mmol/L (0.7-2.0) 04/10/18 02:47 Calcium 9.0 mg/dL (8.4-10.2) 04/22/18 04:07 Phosphorus 3.60 mg/dL (2.5-4.5) 04/21/18 05:00 Magnesium 2.10 mg/dL (1.7-2.3) 04/21/18 05:00 Total Bilirubin 1.20 mg/dL (0.1-1.2) 04/18/18 11:00 Direct Bilirubin 0.3 mg/dL (0-0.2) H 04/18/18 11:00 Indirect Bilirubin 0.9 mg/dL 04/18/18 11:00 AST 87 units/L (5-40) H 04/18/18 11:00 ALT 39 units/L (7-56) 04/18/18 11:00 Alkaline Phosphatase 59 units/L (35-129) 04/18/18 11:00 Total Creatine Kinase 2247 units/L (55-170) H 04/14/18 05:00 CK-MB (CK-2) 30.0 ng/mL (0.0-4.0) H 04/10/18 10:37 CK-MB (CK-2) Rel Index 0.3 (0-4) 04/10/18 10:37 Troponin T < 0.010 ng/mL (0.00-0.029) 04/10/18 10:37 C-Reactive Protein 7.20 mg/dL (0.00-1.30) H 04/11/18 13:43 Total Protein 6.8 g/dL (6.3-8.2) 04/18/18 11:00 Albumin 3.7 g/dL (3.9-5) L 04/18/18 11:00 Albumin/Globulin Ratio 1.2 % 04/18/18 11:00 Urine Color Yellow (Yellow) 04/10/18 01:07 Urine Turbidity Clear (Clear) 04/10/18 01:07 Urine pH 5.0 (5.0-7.0) 04/10/18 01:07 Ur Specific [place] 1.019 (1.003-1.030) 04/10/18 01:07 Urine Protein 100 mg/dl mg/dL (Negative) 04/10/18 01:07 Urine Glucose (UA) Neg mg/dL (Negative) 04/10/18 01:07 Urine Ketones Neg mg/dL (Negative) 04/10/18 01:07 Urine Blood Lg (Negative) 04/10/18 01:07 Urine Nitrite Neg (Negative) 04/10/18 01:07 Urine Bilirubin Neg (Negative) 04/10/18 01:07 Urine Urobilinogen < 2.0 mg/dL (<2.0) 04/10/18 01:07 Ur Leukocyte Esterase Neg (Negative) 04/10/18 01:07 Urine WBC (Auto) 1.0 /HPF (0.0-6.0) 04/10/18 01:07 Urine RBC (Auto) 9.0 /HPF (0.0-6.0) 04/10/18 01:07 U Epithel Cells (Auto) < 1.0 /HPF (0-13.0) 04/10/18 01:07 Urine Mucus Few /HPF 04/10/18 01:07 Levetiracetam 25.2 mcg/mL 04/12/18 20:37 Hepatitis A IgM Ab Non-reactive (NonReactive) 04/14/18 14:56 Hep Bs Antigen Non-reactive (Negative) 04/14/18 14:56 Hep B Core IgM Ab Non-reactive (NonReactive) 04/14/18 14:56 Hepatitis C Antibody Non-reactive (NonReactive) 04/14/18 14:56 Influenza A (Rapid) Negative (Negative) 04/11/18 15:08 Influenza B (Rapid) Negative (Negative) 04/11/18 15:08 Nutrition/Malnutrition Assess - Dietary Evaluation Nutrition/Malnutrition Findings: Nutrition Notes Start: 04/11/18 10:20 Freq: Status: Active Protocol: Document 04/19/18 13:52 CP (Rec: 04/19/18 14:17 CP [id number]) Co-Sign 04/19/18 13:52 LP Nutrition Notes Need for Assessment generated from: MD Order Initial or Follow up Assessment Current Diagnosis Coronary Artery Disease Diabetes Hypertension Respiratory Failure Other Pertinent Diagnosis Pneu, new onset seizures, acute encephalopathy Current Diet TF - Vital High Protein at 60ml/hr Labs/Tests BG 266 Pertinent Medications Reviewed Height 5 ft 9 in Weight 97 kg Many Body Weight (kg) 72.72 BMI 31.6 Subjective/Other Information MD consult for TF with lower CHO d/t high BG as discussed in rounds. Vital AF will be ordered. Burn Absent Trauma Absent #1 Nutrition Diagnosis Inadequate oral intake Diagnosis Progress(for reassessment Continues documentation) Is patient on ventilator? Yes Is Patient Ambulatory and/or Out of Bed No REE-([facility]-confined to bed) 2021.780 Kcal/Kg value to use for calculation 16 Approximate Energy Requirements Using 1552 kcal/Kg Calculation Used for Recommendations Kcal/kg Additional Notes Pro needs 2g/kg IBW: 145g/day Fluid needs 1ml/kcal Nutrition Intervention Change Diet Order: Vital AF 1.2 Nutrition Support: Change TF to Vital 1.2 at 50 mL/hr. Water flush 80 mL q4h. Kcal 1,440 Protein (gm) 90 Carbohydrates (gm) 133 Fluid (mL) 1,200 Goal #1 TF to start Anticipated Discharge Needs: Unable to determine at this time Follow-Up By: 04/22/18 Additional Comments F/U: TF to start - Attestation Statement I have reviewed and agreed w/ Malnutrition eval & tx plan: Yes
--- NOTE | 2018-04-22 09:02 | Progress Note ---
Assessment and Plan Acute Hypoxemic Respiratory Failure on MVS for airway protection/seizures New Onset Seizures (presumed secondary to Hypoglycemia) Acute Encephalopathy (Toxic -Metabolic) Diabetes Type II, hypoglycemia Rhabdomyolysis Obesity HTN Possible JOE Hyponatremia (mild) Hypomagnesemia Leucocytosis h/o Alcohol use disorder Medical decision making --continue neurostimulant -Blood pressure control -Secretion management -Avoid delirium, maintain sleep-wake cycle. -Appears to have some cogwheel rigidity. Will ask Neurology to re-evaluate -Follow up EEG today. -Discussed with son at the bedside, he is agreeable to trachesotomy if needed All other care as outlined below. -VAP bundle addressed -Anti-seizure medications -Analgesia and agitation management. -VTE and stress ulcer prophylaxis -AEDs (Keppra) -Enteric nutrition with glycemic control -Target blood glucose level 140-180mg/dL -Avoid hypoglycemia -Critical care bundles addressed -Aspiration precautions - Wean supplemental oxygen to keep O2 sats > 90% -Lung protective strategies - Bronchodilators per protocol - Daily SAT's and SBT - Replace electrolytes as indicated Discussed with RT and RT CONDITION: CRITICAL PROGNOSIS: GUARDED CODE STATUS: FULL CODE The high probability of a clinically significant, sudden or life-threatening deterioration of the [respiratory, renal, endocrine, neurology] system(s) required my full and direct attention, intervention and personal management. The aggregate critical care time was [31] minutes without overlap. Time includes spent on; [x] Data Review and interpretation [x] Patient assessment and monitoring of vital signs [x] Documentation [x] Medication orders and management Subjective Date of service: 04/22/18 Principal diagnosis: Ac Hypoxemic Resp Failure; Seizures; Encephalopathy; DM II; Rhabdomyolysis Interval history: Patient is seen today for: Acute Hypoxemic Respiratory Failure; New Onset Seizures (presumed secondary to Hypoglycemia); Acute Encephalopathy (Toxic - Metabolic); Diabetes Type II; Rhabdomyolysis Seen and examined at bedside; 24hour events reviewed; nursing and respiratory care staff consulted; no adverse overnight events reported to me; resting peacefully in bed; remains encephalopathic, though he tolerates SBT trials, copious oral secretions. Remains on MVS, no fevers documented overnight. Episodes of hypertension associated, more awake this morning, actively resisting movements, opening eyes Objective Vital Signs - 12hr 04/21/18 04/21/18 04/21/18 21:04 22:00 23:00 Temperature Pulse Rate 84 67 65 Pulse Rate [ From Monitor] Respiratory 17 17 Rate Blood Pressure 156/76 128/63 139/66 O2 Sat by Pulse 97 98 Oximetry 04/21/18 04/21/18 04/21/18 23:13 23:17 23:19 Temperature 98.6 F Pulse Rate 65 65 Pulse Rate [ From Monitor] Respiratory 16 Rate Blood Pressure 139/66 139/66 O2 Sat by Pulse 100 100 Oximetry 04/22/18 04/22/18 04/22/18 00:00 01:01 02:00 Temperature Pulse Rate 65 68 66 Pulse Rate [ 65 From Monitor] Respiratory 20 18 16 Rate Blood Pressure 158/68 150/67 140/70 O2 Sat by Pulse 100 100 100 Oximetry 04/22/18 04/22/18 04/22/18 02:30 03:01 03:30 Temperature 98.4 F Pulse Rate 68 66 Pulse Rate [ From Monitor] Respiratory 22 Rate Blood Pressure 156/69 152/74 O2 Sat by Pulse 100 100 Oximetry 04/22/18 04/22/18 04/22/18 04:00 04:01 05:00 Temperature Pulse Rate 63 65 60 Pulse Rate [ 71 From Monitor] Respiratory 19 14 14 Rate Blood Pressure 133/56 136/61 133/56 O2 Sat by Pulse 100 100 100 Oximetry 04/22/18 04/22/18 04/22/18 06:00 07:00 08:00 Temperature 97.9 F Pulse Rate 60 64 65 Pulse Rate [ 60 From Monitor] Respiratory 16 14 14 Rate Blood Pressure 140/64 137/65 135/68 O2 Sat by Pulse 100 100 100 Oximetry Constitutional: no acute distress, other (Elderly looking AAM, normocephalic and atraumatic with mildly increased respiratory effort on MVS) Eyes: non-icteric ENT: oropharynx moist, other (ETT 23 cm STEPHANIE) Neck: supple, no lymphadenopathy, no JVD, other (large neck circumference) Effort: mildly labored Ascultation: Bilateral: diminished breath sounds, rhonchi Percussion: Bilateral: not dull Cardiovascular: regular rate and rhythm Gastrointestinal: normoactive bowel sounds, soft, non-tender, non-distended, other (protuberant) Integumentary: normal Extremities: no cyanosis, no edema, pulses normal, no ischemia or petechiae Neurologic: pupils equal and round, unable to assess Psychiatric: other (unable to assess) CBC and BMP: 04/22/18 04:07 04/23/18 04:55 ABG, PT/INR, D-dimer: ABG POC ABG pH 7.497 (7.35-7.45) H 04/19/18 04:46 POC ABG pCO2 42.9 (35-45) 04/19/18 04:46 POC ABG pO2 119 (80-105) H 04/19/18 04:46 POC ABG HCO3 33.2 04/19/18 04:46 POC ABG Total CO2 35 04/19/18 04:46 POC ABG O2 Sat 99 04/19/18 04:46 Abnormal lab findings: Abnormal Labs 04/09/18 04/09/18 04/09/18 23:16 23:16 23:16 WBC 13.6 H Hct MCHC RDW Plt Count Lymph % (Auto) 9.4 L [place] % (Auto) Lymph # [place] # Seg Neutrophils % 87.3 H Seg Neutrophils # 11.9 H POC ABG pH POC ABG pCO2 POC ABG pO2 Sodium 132 L Potassium Chloride 92.7 L Carbon Dioxide BUN Glucose 143 H POC Glucose Hemoglobin A1c Lactic Acid 2.10 H* Calcium Phosphorus Magnesium Total Bilirubin 2.20 H Direct Bilirubin AST 107 H Total Creatine Kinase CK-MB (CK-2) C-Reactive Protein Total Protein Albumin 04/10/18 04/10/18 04/10/18 00:38 00:55 01:13 WBC Hct MCHC RDW Plt Count Lymph % (Auto) [place] % (Auto) Lymph # [place] # Seg Neutrophils % Seg Neutrophils # POC ABG pH POC ABG pCO2 POC ABG pO2 Sodium Potassium Chloride Carbon Dioxide BUN Glucose POC Glucose 117 H 121 H Hemoglobin A1c Lactic Acid 2.10 H* Calcium Phosphorus Magnesium Total Bilirubin Direct Bilirubin AST Total Creatine Kinase CK-MB (CK-2) C-Reactive Protein Total Protein Albumin 04/10/18 04/10/18 04/10/18 02:10 03:51 04:07 WBC 14.0 H Hct MCHC RDW Plt Count Lymph % (Auto) 7.5 L [place] % (Auto) Lymph # 1.1 L [place] # 1.0 H Seg Neutrophils % 84.9 H Seg Neutrophils # 11.8 H POC ABG pH POC ABG pCO2 POC ABG pO2 Sodium Potassium Chloride Carbon Dioxide BUN Glucose POC Glucose 153 H 158 H Hemoglobin A1c Lactic Acid Calcium Phosphorus Magnesium Total Bilirubin Direct Bilirubin AST Total Creatine Kinase CK-MB (CK-2) C-Reactive Protein Total Protein Albumin 04/10/18 04/10/18 04/10/18 04:07 06:56 09:48 WBC Hct MCHC RDW Plt Count Lymph % (Auto) [place] % (Auto) Lymph # [place] # Seg Neutrophils % Seg Neutrophils # POC ABG pH POC ABG pCO2 POC ABG pO2 Sodium 130 L Potassium Chloride 93.4 L Carbon Dioxide BUN Glucose 180 H POC Glucose 251 H 245 H Hemoglobin A1c Lactic Acid Calcium 7.9 L D Phosphorus Magnesium Total Bilirubin Direct Bilirubin AST Total Creatine Kinase 7857 H CK-MB (CK-2) 34.3 H C-Reactive Protein Total Protein Albumin 04/10/18 04/10/18 04/10/18 10:37 12:44 17:31 WBC Hct MCHC RDW Plt Count Lymph % (Auto) [place] % (Auto) Lymph # [place] # Seg Neutrophils % Seg Neutrophils # POC ABG pH POC ABG pCO2 45.6 H POC ABG pO2 374 H Sodium Potassium Chloride Carbon Dioxide BUN Glucose POC Glucose 348 H Hemoglobin A1c Lactic Acid Calcium Phosphorus Magnesium Total Bilirubin Direct Bilirubin AST Total Creatine Kinase 9880 H CK-MB (CK-2) 30.0 H C-Reactive Protein Total Protein Albumin 04/10/18 04/11/18 04/11/18 23:36 03:52 04:28 WBC 12.2 H Hct MCHC RDW Plt Count 132 L Lymph % (Auto) [place] % (Auto) 10.2 H Lymph # [place] # 1.2 H Seg Neutrophils % 75.1 H Seg Neutrophils # 9.1 H POC ABG pH 7.495 H POC ABG pCO2 32.4 L POC ABG pO2 Sodium Potassium Chloride Carbon Dioxide BUN Glucose POC Glucose 148 H Hemoglobin A1c Lactic Acid Calcium Phosphorus Magnesium Total Bilirubin Direct Bilirubin AST Total Creatine Kinase CK-MB (CK-2) C-Reactive Protein Total Protein Albumin 04/11/18 04/11/18 04/11/18 04:28 04:28 05:22 WBC Hct MCHC RDW Plt Count Lymph % (Auto) [place] % (Auto) Lymph # [place] # Seg Neutrophils % Seg Neutrophils # POC ABG pH POC ABG pCO2 POC ABG pO2 Sodium 133 L Potassium 3.5 L Chloride 95.1 L Carbon Dioxide BUN 7 L Glucose 206 H POC Glucose 178 H Hemoglobin A1c 6.4 H Lactic Acid Calcium 7.7 L Phosphorus 1.80 L Magnesium 1.50 L Total Bilirubin 4.10 H Direct Bilirubin AST 168 H Total Creatine Kinase 9352 H CK-MB (CK-2) C-Reactive Protein Total Protein Albumin 3.4 L 04/11/18 04/11/18 04/11/18 11:28 13:43 17:30 WBC Hct MCHC RDW Plt Count Lymph % (Auto) [place] % (Auto) Lymph # [place] # Seg Neutrophils % Seg Neutrophils # POC ABG pH POC ABG pCO2 POC ABG pO2 Sodium Potassium Chloride Carbon Dioxide BUN Glucose POC Glucose 196 H 142 H Hemoglobin A1c Lactic Acid Calcium Phosphorus Magnesium Total Bilirubin Direct Bilirubin AST Total Creatine Kinase CK-MB (CK-2) C-Reactive Protein 7.20 H Total Protein Albumin 04/11/18 04/11/18 04/12/18 18:59 23:23 04:00 WBC Hct MCHC RDW Plt Count Lymph % (Auto) [place] % (Auto) Lymph # [place] # Seg Neutrophils % Seg Neutrophils # POC ABG pH 7.489 H POC ABG pCO2 34.5 L POC ABG pO2 Sodium Potassium 3.3 L Chloride Carbon Dioxide BUN 6 L Glucose 151 H POC Glucose 129 H Hemoglobin A1c Lactic Acid Calcium 7.3 L Phosphorus 2.00 L Magnesium Total Bilirubin 2.80 H Direct Bilirubin AST 121 H Total Creatine Kinase 5177 H CK-MB (CK-2) C-Reactive Protein Total Protein 5.9 L Albumin 3.1 L 04/12/18 04/12/18 04/12/18 04:00 04:04 05:21 WBC Hct 34.9 L MCHC 35 H RDW Plt Count 128 L Lymph % (Auto) [place] % (Auto) 10.6 H Lymph # [place] # 0.9 H Seg Neutrophils % Seg Neutrophils # POC ABG pH 7.454 H POC ABG pCO2 POC ABG pO2 Sodium Potassium Chloride Carbon Dioxide BUN Glucose POC Glucose 136 H Hemoglobin A1c Lactic Acid Calcium Phosphorus Magnesium Total Bilirubin Direct Bilirubin AST Total Creatine Kinase CK-MB (CK-2) C-Reactive Protein Total Protein Albumin 04/12/18 04/13/18 04/13/18 11:23 00:21 04:57 WBC Hct MCHC RDW Plt Count Lymph % (Auto) [place] % (Auto) Lymph # [place] # Seg Neutrophils % Seg Neutrophils # POC ABG pH POC ABG pCO2 34.7 L POC ABG pO2 125 H Sodium Potassium Chloride Carbon Dioxide BUN Glucose POC Glucose 166 H 143 H Hemoglobin A1c Lactic Acid Calcium Phosphorus Magnesium Total Bilirubin Direct Bilirubin AST Total Creatine Kinase CK-MB (CK-2) C-Reactive Protein Total Protein Albumin 04/13/18 04/13/18 04/13/18 05:02 05:02 12:16 WBC Hct MCHC RDW Plt Count Lymph % (Auto) [place] % (Auto) Lymph # [place] # Seg Neutrophils % Seg Neutrophils # POC ABG pH POC ABG pCO2 POC ABG pO2 Sodium Potassium Chloride Carbon Dioxide BUN Glucose POC Glucose 161 H 170 H Hemoglobin A1c Lactic Acid Calcium Phosphorus Magnesium Total Bilirubin Direct Bilirubin AST Total Creatine Kinase 3456 H CK-MB (CK-2) C-Reactive Protein Total Protein Albumin 04/13/18 04/13/18 04/14/18 18:52 23:09 04:35 WBC Hct MCHC RDW Plt Count Lymph % (Auto) [place] % (Auto) Lymph # [place] # Seg Neutrophils % Seg Neutrophils # POC ABG pH 7.467 H POC ABG pCO2 POC ABG pO2 Sodium Potassium Chloride Carbon Dioxide BUN Glucose POC Glucose 196 H 219 H Hemoglobin A1c Lactic Acid Calcium Phosphorus Magnesium Total Bilirubin Direct Bilirubin AST Total Creatine Kinase CK-MB (CK-2) C-Reactive Protein Total Protein Albumin 04/14/18 04/14/18 04/14/18 05:00 05:26 11:20 WBC Hct MCHC RDW Plt Count Lymph % (Auto) [place] % (Auto) Lymph # [place] # Seg Neutrophils % Seg Neutrophils # POC ABG pH POC ABG pCO2 POC ABG pO2 Sodium Potassium Chloride Carbon Dioxide BUN Glucose POC Glucose 249 H 260 H Hemoglobin A1c Lactic Acid Calcium Phosphorus Magnesium Total Bilirubin Direct Bilirubin AST Total Creatine Kinase 2247 H CK-MB (CK-2) C-Reactive Protein Total Protein Albumin 04/14/18 04/14/18 04/14/18 17:04 17:51 23:53 WBC Hct MCHC RDW Plt Count Lymph % (Auto) [place] % (Auto) Lymph # [place] # Seg Neutrophils % Seg Neutrophils # POC ABG pH POC ABG pCO2 POC ABG pO2 79 L Sodium Potassium Chloride Carbon Dioxide BUN Glucose POC Glucose 284 H 203 H Hemoglobin A1c Lactic Acid Calcium Phosphorus Magnesium Total Bilirubin Direct Bilirubin AST Total Creatine Kinase CK-MB (CK-2) C-Reactive Protein Total Protein Albumin 04/15/18 04/15/18 04/15/18 04:24 05:26 12:56 WBC Hct MCHC RDW Plt Count Lymph % (Auto) [place] % (Auto) Lymph # [place] # Seg Neutrophils % Seg Neutrophils # POC ABG pH POC ABG pCO2 45.4 H POC ABG pO2 78 L Sodium Potassium Chloride Carbon Dioxide BUN Glucose POC Glucose 194 H 200 H Hemoglobin A1c Lactic Acid Calcium Phosphorus Magnesium Total Bilirubin Direct Bilirubin AST Total Creatine Kinase CK-MB (CK-2) C-Reactive Protein Total Protein Albumin 04/15/18 04/15/18 04/16/18 17:46 23:57 05:08 WBC Hct MCHC RDW Plt Count Lymph % (Auto) [place] % (Auto) Lymph # [place] # Seg Neutrophils % Seg Neutrophils # POC ABG pH POC ABG pCO2 POC ABG pO2 Sodium Potassium Chloride Carbon Dioxide BUN Glucose POC Glucose 118 H 204 H 221 H Hemoglobin A1c Lactic Acid Calcium Phosphorus Magnesium Total Bilirubin Direct Bilirubin AST Total Creatine Kinase CK-MB (CK-2) C-Reactive Protein Total Protein Albumin 04/16/18 04/16/18 04/16/18 05:16 12:23 13:07 WBC Hct MCHC RDW Plt Count Lymph % (Auto) [place] % (Auto) Lymph # [place] # Seg Neutrophils % Seg Neutrophils # POC ABG pH 7.456 H POC ABG pCO2 46.7 H POC ABG pO2 Sodium Potassium Chloride Carbon Dioxide BUN Glucose POC Glucose 271 H Hemoglobin A1c Lactic Acid Calcium Phosphorus Magnesium Total Bilirubin Direct Bilirubin AST Total Creatine Kinase CK-MB (CK-2) C-Reactive Protein Total Protein Albumin 04/16/18 04/17/18 04/17/18 19:14 00:08 05:46 WBC Hct MCHC RDW Plt Count Lymph % (Auto) [place] % (Auto) Lymph # [place] # Seg Neutrophils % Seg Neutrophils # POC ABG pH POC ABG pCO2 POC ABG pO2 Sodium Potassium Chloride Carbon Dioxide BUN Glucose POC Glucose 221 H 238 H 274 H Hemoglobin A1c Lactic Acid Calcium Phosphorus Magnesium Total Bilirubin Direct Bilirubin AST Total Creatine Kinase CK-MB (CK-2) C-Reactive Protein Total Protein Albumin 04/17/18 04/17/18 04/17/18 13:50 13:59 14:20 WBC Hct MCHC RDW Plt Count Lymph % (Auto) [place] % (Auto) Lymph # [place] # Seg Neutrophils % Seg Neutrophils # POC ABG pH 7.474 H POC ABG pCO2 POC ABG pO2 Sodium Potassium 3.4 L Chloride 93.6 L Carbon Dioxide 33 H BUN Glucose 305 H POC Glucose 315 H Hemoglobin A1c Lactic Acid Calcium Phosphorus Magnesium Total Bilirubin Direct Bilirubin AST Total Creatine Kinase CK-MB (CK-2) C-Reactive Protein Total Protein Albumin 04/17/18 04/17/18 04/18/18 17:04 23:26 04:20 WBC Hct MCHC RDW Plt Count Lymph % (Auto) [place] % (Auto) Lymph # [place] # Seg Neutrophils % Seg Neutrophils # POC ABG pH 7.473 H POC ABG pCO2 POC ABG pO2 Sodium Potassium Chloride Carbon Dioxide BUN Glucose POC Glucose 280 H 284 H Hemoglobin A1c Lactic Acid Calcium Phosphorus Magnesium Total Bilirubin Direct Bilirubin AST Total Creatine Kinase CK-MB (CK-2) C-Reactive Protein Total Protein Albumin 04/18/18 04/18/18 04/18/18 05:14 08:32 11:00 WBC Hct MCHC RDW Plt Count Lymph % (Auto) [place] % (Auto) Lymph # [place] # Seg Neutrophils % Seg Neutrophils # POC ABG pH POC ABG pCO2 POC ABG pO2 Sodium Potassium Chloride Carbon Dioxide BUN Glucose POC Glucose 286 H 296 H Hemoglobin A1c Lactic Acid Calcium Phosphorus Magnesium Total Bilirubin Direct Bilirubin 0.3 H AST 87 H Total Creatine Kinase CK-MB (CK-2) C-Reactive Protein Total Protein Albumin 3.7 L 04/18/18 04/18/18 04/19/18 12:03 18:15 00:08 WBC Hct MCHC RDW Plt Count Lymph % (Auto) [place] % (Auto) Lymph # [place] # Seg Neutrophils % Seg Neutrophils # POC ABG pH POC ABG pCO2 POC ABG pO2 Sodium Potassium Chloride Carbon Dioxide BUN Glucose POC Glucose 353 H 327 H 331 H Hemoglobin A1c Lactic Acid Calcium Phosphorus Magnesium Total Bilirubin Direct Bilirubin AST Total Creatine Kinase CK-MB (CK-2) C-Reactive Protein Total Protein Albumin 04/19/18 04/19/18 04/19/18 04:46 05:26 11:48 WBC Hct MCHC RDW Plt Count Lymph % (Auto) [place] % (Auto) Lymph # [place] # Seg Neutrophils % Seg Neutrophils # POC ABG pH 7.497 H POC ABG pCO2 POC ABG pO2 119 H Sodium Potassium Chloride Carbon Dioxide BUN Glucose POC Glucose 323 H 266 H Hemoglobin A1c Lactic Acid Calcium Phosphorus Magnesium Total Bilirubin Direct Bilirubin AST Total Creatine Kinase CK-MB (CK-2) C-Reactive Protein Total Protein Albumin 04/19/18 04/19/18 04/20/18 17:52 23:37 00:07 WBC Hct MCHC RDW Plt Count Lymph % (Auto) [place] % (Auto) Lymph # [place] # Seg Neutrophils % Seg Neutrophils # POC ABG pH POC ABG pCO2 POC ABG pO2 Sodium Potassium Chloride Carbon Dioxide BUN Glucose POC Glucose 284 H 285 H 312 H Hemoglobin A1c Lactic Acid Calcium Phosphorus Magnesium Total Bilirubin Direct Bilirubin AST Total Creatine Kinase CK-MB (CK-2) C-Reactive Protein Total Protein Albumin 04/20/18 04/20/18 04/20/18 04:09 04:09 04:37 WBC Hct 34.7 L MCHC 35 H RDW Plt Count Lymph % (Auto) [place] % (Auto) Lymph # [place] # Seg Neutrophils % Seg Neutrophils # POC ABG pH POC ABG pCO2 POC ABG pO2 Sodium Potassium 3.5 L Chloride 95.7 L Carbon Dioxide 34 H BUN Glucose 286 H POC Glucose 267 H Hemoglobin A1c Lactic Acid Calcium Phosphorus Magnesium Total Bilirubin Direct Bilirubin AST Total Creatine Kinase CK-MB (CK-2) C-Reactive Protein Total Protein Albumin 04/20/18 04/20/18 04/20/18 12:32 17:54 21:07 WBC Hct MCHC RDW Plt Count Lymph % (Auto) [place] % (Auto) Lymph # [place] # Seg Neutrophils % Seg Neutrophils # POC ABG pH POC ABG pCO2 POC ABG pO2 Sodium Potassium Chloride Carbon Dioxide BUN Glucose POC Glucose 220 H 298 H 187 H Hemoglobin A1c Lactic Acid Calcium Phosphorus Magnesium Total Bilirubin Direct Bilirubin AST Total Creatine Kinase CK-MB (CK-2) C-Reactive Protein Total Protein Albumin 04/21/18 04/21/18 04/21/18 00:04 05:00 05:41 WBC Hct MCHC RDW Plt Count Lymph % (Auto) [place] % (Auto) Lymph # [place] # Seg Neutrophils % Seg Neutrophils # POC ABG pH POC ABG pCO2 POC ABG pO2 Sodium Potassium Chloride 95.2 L Carbon Dioxide 34 H BUN Glucose 179 H POC Glucose 183 H 166 H Hemoglobin A1c Lactic Acid Calcium Phosphorus Magnesium Total Bilirubin Direct Bilirubin AST Total Creatine Kinase CK-MB (CK-2) C-Reactive Protein Total Protein Albumin 04/21/18 04/21/18 04/21/18 11:55 18:09 23:36 WBC Hct MCHC RDW Plt Count Lymph % (Auto) [place] % (Auto) Lymph # [place] # Seg Neutrophils % Seg Neutrophils # POC ABG pH POC ABG pCO2 POC ABG pO2 Sodium Potassium Chloride Carbon Dioxide BUN Glucose POC Glucose 219 H 247 H 229 H Hemoglobin A1c Lactic Acid Calcium Phosphorus Magnesium Total Bilirubin Direct Bilirubin AST Total Creatine Kinase CK-MB (CK-2) C-Reactive Protein Total Protein Albumin 04/22/18 04/22/18 04/22/18 04:07 04:07 05:08 WBC Hct MCHC 35 H RDW 15.3 H Plt Count Lymph % (Auto) [place] % (Auto) Lymph # [place] # Seg Neutrophils % Seg Neutrophils # POC ABG pH POC ABG pCO2 POC ABG pO2 Sodium Potassium Chloride 97.4 L Carbon Dioxide 31 H BUN Glucose 177 H POC Glucose 200 H Hemoglobin A1c Lactic Acid Calcium Phosphorus Magnesium Total Bilirubin Direct Bilirubin AST Total Creatine Kinase CK-MB (CK-2) C-Reactive Protein Total Protein Albumin Allied health notes reviewed: RT
[2018-04-22] MEDS: DUONEB *Not for PRN Use IH SCH ×3 (09:13→19:02)
[2018-04-22] MEDS: KEPPRA PO SCH ×2 (09:59→22:11)
[2018-04-22] MEDS: LOVENOX SUB-Q SCH (10:00)
[2018-04-22] MEDS: LOPRESSOR PO SCH ×2 (10:00→22:12)
[2018-04-22] MEDS: NORVASC FEEDTUBE SCH (10:00)
[2018-04-22] MEDS: PEPCID PO SCH ×2 (10:00→22:12)
[2018-04-22] MEDS: LANTUS SUB-Q SCH (10:01)
[2018-04-22] MEDS: PROVIGIL PO SCH (10:09)
--- NOTE | 2018-04-22 10:34 | Progress Note ---
Assessment and Plan Cultures: Blood culture 04/09/2018 no growth so far Urine culture 04/10/2018 no growth so far Sputum culture 04/10/2018 upper respiratory mikayla. Assessment: 78 y/o male with history of hypertension, diabetes, coronary artery disease; admitted on 04/09/2018 due to be found unresponsive at home when the family has not heard from him. EMS was called, his blood sugar was undetectable: 1) Sepsis: New fever 3/2 and 3/3 ?. Etiology most likely aspiration pneumonia fully treated. Blood culture 04/11/2018 no growth so far. UA neg. CRP=7 2) Presumed aspiration versus CAP: CXR focal infiltrate RLL. Sputum culture 04/10/2018 upper respiratory mikayla. Influenza neg. Repeat CXR neg 3) Acute respiratory failure: on vent, from encephalopathy/pneumonia 4) Generalized seizures: from hypoglycemia, resolved 5) Elevated LFTs: better; from sepsis or other etiologies? rhabdo, better. Viral hepatitis serology all negative. US no visualized GB. LFTs better 6) Acute encephalopathy: post seizures/ischemia. somnolent 7) Rhabdomyolysis: better Recommendations: - noted fever 3/2 and 3/3 check blood cx - completed ceftriaxone D5 of 5, azithromycin D5 of 5 on 04/17/2018 and flagyl D5 of 5 to cover CAP versus aspiration pneumonia will follow Tiffanie Crowe MD Infectious Diseases [employer] [facility] M [phone] O [phone] Subjective Date of service: 04/22/18 Principal diagnosis: Ac Hypoxemic Resp Failure; Seizures; Encephalopathy; DM II; Rhabdomyolysis Interval history: Remains intubated on BIPAP, off sedation, open eyes, fever 100.1 yest ROS: unable to obtain Objective - Exam Narrative Exam: General appearance: open eyes, intubated on BIPAP in NAD Eyes: anicteric sclerae, moist conjunctivae; no lid-lag; PERRLA HENT: Atraumatic; oropharynx ETT/NGT Neck: Trachea midline; supple, no thyromegaly or lymphadenopathy Lungs: griffin coarse BS CV:bradycardic Abdomen: Soft, non-tender; no masses or hepatosplenomegaly Extremities: No peripheral edema or extremity lymphadenopathy Skin: Normal temperature, turgor and texture; no rash, ulcers or subcutaneous nodules Psych: somnolent Neuro: somnolent PICC line Condom cath - Constitutional Vitals: Vital Signs Temp Pulse Resp BP Pulse Ox 97.9 F 66 20 123/58 100 04/22/18 08:00 04/22/18 10:00 04/22/18 09:36 04/22/18 10:00 04/22/18 09:13 Temperature -Last 24 Hours Temperature 97.9 F Temperature 97.9 F Temperature 98.4 F Temperature 98.6 F Temperature 100.1 F Temperature 99 F Temperature 99.3 F - Labs CBC & Chem 7: 04/22/18 04:07 04/22/18 04:07 Labs: Abnormal lab results 04/21/18 04/21/18 04/21/18 Range/Units 11:55 18:09 23:36 MCHC (32-34) % RDW (13.2-15.2) % Chloride (98-107) mmol/L Carbon Dioxide (22-30) mmol/L Glucose (75-100) mg/dL POC Glucose 219 H 247 H 229 H (70-105) 04/22/18 04/22/18 04/22/18 Range/Units 04:07 04:07 05:08 MCHC 35 H (32-34) % RDW 15.3 H (13.2-15.2) % Chloride 97.4 L (98-107) mmol/L Carbon Dioxide 31 H (22-30) mmol/L Glucose 177 H (75-100) mg/dL POC Glucose 200 H (70-105)
[2018-04-22] MEDS: SODIUM CHLORIDE FLUSH SYRINGE 10 ML IV SCH ×3 (14:46→22:12)
[2018-04-22] MEDS: ZOFRAN IV PRN (20:45)
[2018-04-23] MEDS: HumaLOG SUB-Q SCH ×4 (00:25→17:51)
[2018-04-23] MEDS: ZOFRAN IV PRN ×2 (04:44→14:48)
[2018-04-23 05:26] LABS: BUN/Creatinine Ratio 29; Blood Urea Nitrogen 23 mg/dL (9-20); Calcium 8.9 mg/dL (8.4-10.2); Hemolysis Index 7
[2018-04-23] MEDS: HumuLIN R SUB-Q SCH ×3 (08:00→20:19)
--- NOTE | 2018-04-23 08:24 | Progress Note ---
Assessment and Plan Acute Hypoxemic Respiratory Failure on MVS for airway protection/seizures New Onset Seizures (presumed secondary to Hypoglycemia) Acute Encephalopathy (Toxic -Metabolic) Hypoxic ischemic encephalopathy Diabetes Type II, hypoglycemia Rhabdomyolysis Obesity HTN Possible JOE Hyponatremia (mild) Hypomagnesemia Leucocytosis h/o Alcohol use disorder Medical decision making --continue neurostimulant -Blood pressure control -Secretion management -Avoid delirium, maintain sleep-wake cycle. -Discussed with son at the bedside, he is agreeable to trachesotomy if needed -General surgery consult for trachesotomy -No clinical evidence of pneumonia, follow up imaging to continue to monitor the RLL infiltrate -Continue to monitor off antibiotics -Follow up EEG pending All other care as outlined below. -VAP bundle addressed -Anti-seizure medications -Analgesia and agitation management. -VTE and stress ulcer prophylaxis -AEDs (Keppra) -Enteric nutrition with glycemic control -Target blood glucose level 140-180mg/dL -Avoid hypoglycemia -Critical care bundles addressed -Aspiration precautions - Wean supplemental oxygen to keep O2 sats > 90% -Lung protective strategies - Bronchodilators per protocol - Daily SAT's and SBT - Replace electrolytes as indicated Discussed with RT and RN CONDITION: CRITICAL PROGNOSIS: GUARDED CODE STATUS: FULL CODE The high probability of a clinically significant, sudden or life-threatening deterioration of the [respiratory, renal, endocrine, neurology] system(s) required my full and direct attention, intervention and personal management. The aggregate critical care time was [31] minutes without overlap. Time includes s pent on; [x] Data Review and interpretation [x] Patient assessment and monitoring of vital signs [x] Documentation [x] Medication orders and management Subjective Date of service: 04/23/18 Principal diagnosis: Ac Hypoxemic Resp Failure; Seizures; Encephalopathy; DM II; Rhabdomyolysis Interval history: Patient is seen today for: Acute Hypoxemic Respiratory Failure; New Onset Seizures (presumed secondary to Hypoglycemia); Acute Encephalopathy (Toxic - Metabolic); Diabetes Type II; Rhabdomyolysis Seen and examined at bedside; 24hour events reviewed; nursing and respiratory care staff consulted; no adverse overnight events reported to me; resting peacefully in bed; remains encephalopathic, though he tolerates SBT trials PSV 8/6 with tidal volumes of 450 ml, improved oral secretions. Remains on MVS, no fevers documented overnight. Episodes of hypertension. Vomited once over night, tube feeding was held, restarted a few hours ago Objective Vital Signs - 12hr 04/22/18 04/22/18 04/22/18 21:00 22:00 22:12 Temperature Pulse Rate 64 89 61 Pulse Rate [ From Monitor] Respiratory 14 13 Rate Blood Pressure 136/57 132/60 132/60 O2 Sat by Pulse 100 100 Oximetry 04/22/18 04/22/18 04/22/18 23:00 23:22 23:24 Temperature Pulse Rate 58 L 53 L 57 L Pulse Rate [ From Monitor] Respiratory 16 12 Rate Blood Pressure 132/62 132/62 132/62 O2 Sat by Pulse 100 100 100 Oximetry 04/22/18 04/23/18 04/23/18 23:37 00:00 01:00 Temperature 99.4 F Pulse Rate 55 L 54 L Pulse Rate [ 55 L From Monitor] Respiratory 13 13 Rate Blood Pressure 127/55 127/55 O2 Sat by Pulse 100 Oximetry 04/23/18 04/23/18 04/23/18 02:00 03:00 03:30 Temperature Pulse Rate 52 L 62 52 L Pulse Rate [ From Monitor] Respiratory 10 L 13 Rate Blood Pressure 152/70 148/76 141/57 O2 Sat by Pulse 100 100 100 Oximetry 04/23/18 04/23/18 04/23/18 03:40 04:00 05:00 Temperature 98.7 F Pulse Rate 64 60 Pulse Rate [ 56 L From Monitor] Respiratory 11 L 12 Rate Blood Pressure 163/76 172/103 O2 Sat by Pulse 100 Oximetry 04/23/18 04/23/18 04/23/18 06:00 07:00 07:32 Temperature 98.7 F Pulse Rate 54 L 53 L Pulse Rate [ From Monitor] Respiratory 12 12 Rate Blood Pressure 134/69 130/70 O2 Sat by Pulse 100 100 Oximetry Constitutional: no acute distress, other (Elderly looking AAM, normocephalic and atraumatic with mildly increased respiratory effort on MVS) Eyes: non-icteric ENT: oropharynx moist, other (ETT 23 cm STEPHANIE) Neck: supple, no lymphadenopathy, no JVD, other (large neck circumference) Effort: mildly labored Ascultation: Bilateral: diminished breath sounds, rhonchi Percussion: Bilateral: not dull Cardiovascular: regular rate and rhythm Gastrointestinal: normoactive bowel sounds, soft, non-tender, non-distended, other (protuberant) Integumentary: normal Extremities: no cyanosis, no edema, pulses normal, no ischemia or petechiae Neurologic: pupils equal and round, unable to assess Psychiatric: other (unable to assess) CBC and BMP: 04/22/18 04:07 04/23/18 04:55 ABG, PT/INR, D-dimer: ABG POC ABG pH 7.497 (7.35-7.45) H 04/19/18 04:46 POC ABG pCO2 42.9 (35-45) 04/19/18 04:46 POC ABG pO2 119 (80-105) H 04/19/18 04:46 POC ABG HCO3 33.2 04/19/18 04:46 POC ABG Total CO2 35 04/19/18 04:46 POC ABG O2 Sat 99 04/19/18 04:46 Abnormal lab findings: Abnormal Labs 04/09/18 04/09/18 04/09/18 23:16 23:16 23:16 WBC 13.6 H Hct MCHC RDW Plt Count Lymph % (Auto) 9.4 L [place] % (Auto) Lymph # [place] # Seg Neutrophils % 87.3 H Seg Neutrophils # 11.9 H POC ABG pH POC ABG pCO2 POC ABG pO2 Sodium 132 L Potassium Chloride 92.7 L Carbon Dioxide BUN Glucose 143 H POC Glucose Hemoglobin A1c Lactic Acid 2.10 H* Calcium Phosphorus Magnesium Total Bilirubin 2.20 H Direct Bilirubin AST 107 H Total Creatine Kinase CK-MB (CK-2) C-Reactive Protein Total Protein Albumin 04/10/18 04/10/18 04/10/18 00:38 00:55 01:13 WBC Hct MCHC RDW Plt Count Lymph % (Auto) [place] % (Auto) Lymph # [place] # Seg Neutrophils % Seg Neutrophils # POC ABG pH POC ABG pCO2 POC ABG pO2 Sodium Potassium Chloride Carbon Dioxide BUN Glucose POC Glucose 117 H 121 H Hemoglobin A1c Lactic Acid 2.10 H* Calcium Phosphorus Magnesium Total Bilirubin Direct Bilirubin AST Total Creatine Kinase CK-MB (CK-2) C-Reactive Protein Total Protein Albumin 04/10/18 04/10/18 04/10/18 02:10 03:51 04:07 WBC 14.0 H Hct MCHC RDW Plt Count Lymph % (Auto) 7.5 L [place] % (Auto) Lymph # 1.1 L [place] # 1.0 H Seg Neutrophils % 84.9 H Seg Neutrophils # 11.8 H POC ABG pH POC ABG pCO2 POC ABG pO2 Sodium Potassium Chloride Carbon Dioxide BUN Glucose POC Glucose 153 H 158 H Hemoglobin A1c Lactic Acid Calcium Phosphorus Magnesium Total Bilirubin Direct Bilirubin AST Total Creatine Kinase CK-MB (CK-2) C-Reactive Protein Total Protein Albumin 04/10/18 04/10/18 04/10/18 04:07 06:56 09:48 WBC Hct MCHC RDW Plt Count Lymph % (Auto) [place] % (Auto) Lymph # [place] # Seg Neutrophils % Seg Neutrophils # POC ABG pH POC ABG pCO2 POC ABG pO2 Sodium 130 L Potassium Chloride 93.4 L Carbon Dioxide BUN Glucose 180 H POC Glucose 251 H 245 H Hemoglobin A1c Lactic Acid Calcium 7.9 L D Phosphorus Magnesium Total Bilirubin Direct Bilirubin AST Total Creatine Kinase 7857 H CK-MB (CK-2) 34.3 H C-Reactive Protein Total Protein Albumin 04/10/18 04/10/18 04/10/18 10:37 12:44 17:31 WBC Hct MCHC RDW Plt Count Lymph % (Auto) [place] % (Auto) Lymph # [place] # Seg Neutrophils % Seg Neutrophils # POC ABG pH POC ABG pCO2 45.6 H POC ABG pO2 374 H Sodium Potassium Chloride Carbon Dioxide BUN Glucose POC Glucose 348 H Hemoglobin A1c Lactic Acid Calcium Phosphorus Magnesium Total Bilirubin Direct Bilirubin AST Total Creatine Kinase 9880 H CK-MB (CK-2) 30.0 H C-Reactive Protein Total Protein Albumin 04/10/18 04/11/18 04/11/18 23:36 03:52 04:28 WBC 12.2 H Hct MCHC RDW Plt Count 132 L Lymph % (Auto) [place] % (Auto) 10.2 H Lymph # [place] # 1.2 H Seg Neutrophils % 75.1 H Seg Neutrophils # 9.1 H POC ABG pH 7.495 H POC ABG pCO2 32.4 L POC ABG pO2 Sodium Potassium Chloride Carbon Dioxide BUN Glucose POC Glucose 148 H Hemoglobin A1c Lactic Acid Calcium Phosphorus Magnesium Total Bilirubin Direct Bilirubin AST Total Creatine Kinase CK-MB (CK-2) C-Reactive Protein Total Protein Albumin 04/11/18 04/11/18 04/11/18 04:28 04:28 05:22 WBC Hct MCHC RDW Plt Count Lymph % (Auto) [place] % (Auto) Lymph # [place] # Seg Neutrophils % Seg Neutrophils # POC ABG pH POC ABG pCO2 POC ABG pO2 Sodium 133 L Potassium 3.5 L Chloride 95.1 L Carbon Dioxide BUN 7 L Glucose 206 H POC Glucose 178 H Hemoglobin A1c 6.4 H Lactic Acid Calcium 7.7 L Phosphorus 1.80 L Magnesium 1.50 L Total Bilirubin 4.10 H Direct Bilirubin AST 168 H Total Creatine Kinase 9352 H CK-MB (CK-2) C-Reactive Protein Total Protein Albumin 3.4 L 04/11/18 04/11/18 04/11/18 11:28 13:43 17:30 WBC Hct MCHC RDW Plt Count Lymph % (Auto) [place] % (Auto) Lymph # [place] # Seg Neutrophils % Seg Neutrophils # POC ABG pH POC ABG pCO2 POC ABG pO2 Sodium Potassium Chloride Carbon Dioxide BUN Glucose POC Glucose 196 H 142 H Hemoglobin A1c Lactic Acid Calcium Phosphorus Magnesium Total Bilirubin Direct Bilirubin AST Total Creatine Kinase CK-MB (CK-2) C-Reactive Protein 7.20 H Total Protein Albumin 04/11/18 04/11/18 04/12/18 18:59 23:23 04:00 WBC Hct MCHC RDW Plt Count Lymph % (Auto) [place] % (Auto) Lymph # [place] # Seg Neutrophils % Seg Neutrophils # POC ABG pH 7.489 H POC ABG pCO2 34.5 L POC ABG pO2 Sodium Potassium 3.3 L Chloride Carbon Dioxide BUN 6 L Glucose 151 H POC Glucose 129 H Hemoglobin A1c Lactic Acid Calcium 7.3 L Phosphorus 2.00 L Magnesium Total Bilirubin 2.80 H Direct Bilirubin AST 121 H Total Creatine Kinase 5177 H CK-MB (CK-2) C-Reactive Protein Total Protein 5.9 L Albumin 3.1 L 04/12/18 04/12/18 04/12/18 04:00 04:04 05:21 WBC Hct 34.9 L MCHC 35 H RDW Plt Count 128 L Lymph % (Auto) [place] % (Auto) 10.6 H Lymph # [place] # 0.9 H Seg Neutrophils % Seg Neutrophils # POC ABG pH 7.454 H POC ABG pCO2 POC ABG pO2 Sodium Potassium Chloride Carbon Dioxide BUN Glucose POC Glucose 136 H Hemoglobin A1c Lactic Acid Calcium Phosphorus Magnesium Total Bilirubin Direct Bilirubin AST Total Creatine Kinase CK-MB (CK-2) C-Reactive Protein Total Protein Albumin 04/12/18 04/13/18 04/13/18 11:23 00:21 04:57 WBC Hct MCHC RDW Plt Count Lymph % (Auto) [place] % (Auto) Lymph # [place] # Seg Neutrophils % Seg Neutrophils # POC ABG pH POC ABG pCO2 34.7 L POC ABG pO2 125 H Sodium Potassium Chloride Carbon Dioxide BUN Glucose POC Glucose 166 H 143 H Hemoglobin A1c Lactic Acid Calcium Phosphorus Magnesium Total Bilirubin Direct Bilirubin AST Total Creatine Kinase CK-MB (CK-2) C-Reactive Protein Total Protein Albumin 04/13/18 04/13/18 04/13/18 05:02 05:02 12:16 WBC Hct MCHC RDW Plt Count Lymph % (Auto) [place] % (Auto) Lymph # [place] # Seg Neutrophils % Seg Neutrophils # POC ABG pH POC ABG pCO2 POC ABG pO2 Sodium Potassium Chloride Carbon Dioxide BUN Glucose POC Glucose 161 H 170 H Hemoglobin A1c Lactic Acid Calcium Phosphorus Magnesium Total Bilirubin Direct Bilirubin AST Total Creatine Kinase 3456 H CK-MB (CK-2) C-Reactive Protein Total Protein Albumin 04/13/18 04/13/18 04/14/18 18:52 23:09 04:35 WBC Hct MCHC RDW Plt Count Lymph % (Auto) [place] % (Auto) Lymph # [place] # Seg Neutrophils % Seg Neutrophils # POC ABG pH 7.467 H POC ABG pCO2 POC ABG pO2 Sodium Potassium Chloride Carbon Dioxide BUN Glucose POC Glucose 196 H 219 H Hemoglobin A1c Lactic Acid Calcium Phosphorus Magnesium Total Bilirubin Direct Bilirubin AST Total Creatine Kinase CK-MB (CK-2) C-Reactive Protein Total Protein Albumin 04/14/18 04/14/18 04/14/18 05:00 05:26 11:20 WBC Hct MCHC RDW Plt Count Lymph % (Auto) [place] % (Auto) Lymph # [place] # Seg Neutrophils % Seg Neutrophils # POC ABG pH POC ABG pCO2 POC ABG pO2 Sodium Potassium Chloride Carbon Dioxide BUN Glucose POC Glucose 249 H 260 H Hemoglobin A1c Lactic Acid Calcium Phosphorus Magnesium Total Bilirubin Direct Bilirubin AST Total Creatine Kinase 2247 H CK-MB (CK-2) C-Reactive Protein Total Protein Albumin 04/14/18 04/14/18 04/14/18 17:04 17:51 23:53 WBC Hct MCHC RDW Plt Count Lymph % (Auto) [place] % (Auto) Lymph # [place] # Seg Neutrophils % Seg Neutrophils # POC ABG pH POC ABG pCO2 POC ABG pO2 79 L Sodium Potassium Chloride Carbon Dioxide BUN Glucose POC Glucose 284 H 203 H Hemoglobin A1c Lactic Acid Calcium Phosphorus Magnesium Total Bilirubin Direct Bilirubin AST Total Creatine Kinase CK-MB (CK-2) C-Reactive Protein Total Protein Albumin 04/15/18 04/15/18 04/15/18 04:24 05:26 12:56 WBC Hct MCHC RDW Plt Count Lymph % (Auto) [place] % (Auto) Lymph # [place] # Seg Neutrophils % Seg Neutrophils # POC ABG pH POC ABG pCO2 45.4 H POC ABG pO2 78 L Sodium Potassium Chloride Carbon Dioxide BUN Glucose POC Glucose 194 H 200 H Hemoglobin A1c Lactic Acid Calcium Phosphorus Magnesium Total Bilirubin Direct Bilirubin AST Total Creatine Kinase CK-MB (CK-2) C-Reactive Protein Total Protein Albumin 04/15/18 04/15/18 04/16/18 17:46 23:57 05:08 WBC Hct MCHC RDW Plt Count Lymph % (Auto) [place] % (Auto) Lymph # [place] # Seg Neutrophils % Seg Neutrophils # POC ABG pH POC ABG pCO2 POC ABG pO2 Sodium Potassium Chloride Carbon Dioxide BUN Glucose POC Glucose 118 H 204 H 221 H Hemoglobin A1c Lactic Acid Calcium Phosphorus Magnesium Total Bilirubin Direct Bilirubin AST Total Creatine Kinase CK-MB (CK-2) C-Reactive Protein Total Protein Albumin 04/16/18 04/16/18 04/16/18 05:16 12:23 13:07 WBC Hct MCHC RDW Plt Count Lymph % (Auto) [place] % (Auto) Lymph # [place] # Seg Neutrophils % Seg Neutrophils # POC ABG pH 7.456 H POC ABG pCO2 46.7 H POC ABG pO2 Sodium Potassium Chloride Carbon Dioxide BUN Glucose POC Glucose 271 H Hemoglobin A1c Lactic Acid Calcium Phosphorus Magnesium Total Bilirubin Direct Bilirubin AST Total Creatine Kinase CK-MB (CK-2) C-Reactive Protein Total Protein Albumin 04/16/18 04/17/18 04/17/18 19:14 00:08 05:46 WBC Hct MCHC RDW Plt Count Lymph % (Auto) [place] % (Auto) Lymph # [place] # Seg Neutrophils % Seg Neutrophils # POC ABG pH POC ABG pCO2 POC ABG pO2 Sodium Potassium Chloride Carbon Dioxide BUN Glucose POC Glucose 221 H 238 H 274 H Hemoglobin A1c Lactic Acid Calcium Phosphorus Magnesium Total Bilirubin Direct Bilirubin AST Total Creatine Kinase CK-MB (CK-2) C-Reactive Protein Total Protein Albumin 04/17/18 04/17/18 04/17/18 13:50 13:59 14:20 WBC Hct MCHC RDW Plt Count Lymph % (Auto) [place] % (Auto) Lymph # [place] # Seg Neutrophils % Seg Neutrophils # POC ABG pH 7.474 H POC ABG pCO2 POC ABG pO2 Sodium Potassium 3.4 L Chloride 93.6 L Carbon Dioxide 33 H BUN Glucose 305 H POC Glucose 315 H Hemoglobin A1c Lactic Acid Calcium Phosphorus Magnesium Total Bilirubin Direct Bilirubin AST Total Creatine Kinase CK-MB (CK-2) C-Reactive Protein Total Protein Albumin 04/17/18 04/17/18 04/18/18 17:04 23:26 04:20 WBC Hct MCHC RDW Plt Count Lymph % (Auto) [place] % (Auto) Lymph # [place] # Seg Neutrophils % Seg Neutrophils # POC ABG pH 7.473 H POC ABG pCO2 POC ABG pO2 Sodium Potassium Chloride Carbon Dioxide BUN Glucose POC Glucose 280 H 284 H Hemoglobin A1c Lactic Acid Calcium Phosphorus Magnesium Total Bilirubin Direct Bilirubin AST Total Creatine Kinase CK-MB (CK-2) C-Reactive Protein Total Protein Albumin 04/18/18 04/18/18 04/18/18 05:14 08:32 11:00 WBC Hct MCHC RDW Plt Count Lymph % (Auto) [place] % (Auto) Lymph # [place] # Seg Neutrophils % Seg Neutrophils # POC ABG pH POC ABG pCO2 POC ABG pO2 Sodium Potassium Chloride Carbon Dioxide BUN Glucose POC Glucose 286 H 296 H Hemoglobin A1c Lactic Acid Calcium Phosphorus Magnesium Total Bilirubin Direct Bilirubin 0.3 H AST 87 H Total Creatine Kinase CK-MB (CK-2) C-Reactive Protein Total Protein Albumin 3.7 L 04/18/18 04/18/18 04/19/18 12:03 18:15 00:08 WBC Hct MCHC RDW Plt Count Lymph % (Auto) [place] % (Auto) Lymph # [place] # Seg Neutrophils % Seg Neutrophils # POC ABG pH POC ABG pCO2 POC ABG pO2 Sodium Potassium Chloride Carbon Dioxide BUN Glucose POC Glucose 353 H 327 H 331 H Hemoglobin A1c Lactic Acid Calcium Phosphorus Magnesium Total Bilirubin Direct Bilirubin AST Total Creatine Kinase CK-MB (CK-2) C-Reactive Protein Total Protein Albumin 04/19/18 04/19/18 04/19/18 04:46 05:26 11:48 WBC Hct MCHC RDW Plt Count Lymph % (Auto) [place] % (Auto) Lymph # [place] # Seg Neutrophils % Seg Neutrophils # POC ABG pH 7.497 H POC ABG pCO2 POC ABG pO2 119 H Sodium Potassium Chloride Carbon Dioxide BUN Glucose POC Glucose 323 H 266 H Hemoglobin A1c Lactic Acid Calcium Phosphorus Magnesium Total Bilirubin Direct Bilirubin AST Total Creatine Kinase CK-MB (CK-2) C-Reactive Protein Total Protein Albumin 04/19/18 04/19/18 04/20/18 17:52 23:37 00:07 WBC Hct MCHC RDW Plt Count Lymph % (Auto) [place] % (Auto) Lymph # [place] # Seg Neutrophils % Seg Neutrophils # POC ABG pH POC ABG pCO2 POC ABG pO2 Sodium Potassium Chloride Carbon Dioxide BUN Glucose POC Glucose 284 H 285 H 312 H Hemoglobin A1c Lactic Acid Calcium Phosphorus Magnesium Total Bilirubin Direct Bilirubin AST Total Creatine Kinase CK-MB (CK-2) C-Reactive Protein Total Protein Albumin 04/20/18 04/20/18 04/20/18 04:09 04:09 04:37 WBC Hct 34.7 L MCHC 35 H RDW Plt Count Lymph % (Auto) [place] % (Auto) Lymph # [place] # Seg Neutrophils % Seg Neutrophils # POC ABG pH POC ABG pCO2 POC ABG pO2 Sodium Potassium 3.5 L Chloride 95.7 L Carbon Dioxide 34 H BUN Glucose 286 H POC Glucose 267 H Hemoglobin A1c Lactic Acid Calcium Phosphorus Magnesium Total Bilirubin Direct Bilirubin AST Total Creatine Kinase CK-MB (CK-2) C-Reactive Protein Total Protein Albumin 04/20/18 04/20/18 04/20/18 12:32 17:54 21:07 WBC Hct MCHC RDW Plt Count Lymph % (Auto) [place] % (Auto) Lymph # [place] # Seg Neutrophils % Seg Neutrophils # POC ABG pH POC ABG pCO2 POC ABG pO2 Sodium Potassium Chloride Carbon Dioxide BUN Glucose POC Glucose 220 H 298 H 187 H Hemoglobin A1c Lactic Acid Calcium Phosphorus Magnesium Total Bilirubin Direct Bilirubin AST Total Creatine Kinase CK-MB (CK-2) C-Reactive Protein Total Protein Albumin 04/21/18 04/21/18 04/21/18 00:04 05:00 05:41 WBC Hct MCHC RDW Plt Count Lymph % (Auto) [place] % (Auto) Lymph # [place] # Seg Neutrophils % Seg Neutrophils # POC ABG pH POC ABG pCO2 POC ABG pO2 Sodium Potassium Chloride 95.2 L Carbon Dioxide 34 H BUN Glucose 179 H POC Glucose 183 H 166 H Hemoglobin A1c Lactic Acid Calcium Phosphorus Magnesium Total Bilirubin Direct Bilirubin AST Total Creatine Kinase CK-MB (CK-2) C-Reactive Protein Total Protein Albumin 04/21/18 04/21/18 04/21/18 11:55 18:09 23:36 WBC Hct MCHC RDW Plt Count Lymph % (Auto) [place] % (Auto) Lymph # [place] # Seg Neutrophils % Seg Neutrophils # POC ABG pH POC ABG pCO2 POC ABG pO2 Sodium Potassium Chloride Carbon Dioxide BUN Glucose POC Glucose 219 H 247 H 229 H Hemoglobin A1c Lactic Acid Calcium Phosphorus Magnesium Total Bilirubin Direct Bilirubin AST Total Creatine Kinase CK-MB (CK-2) C-Reactive Protein Total Protein Albumin 04/22/18 04/22/18 04/22/18 04:07 04:07 05:08 WBC Hct MCHC 35 H RDW 15.3 H Plt Count Lymph % (Auto) [place] % (Auto) Lymph # [place] # Seg Neutrophils % Seg Neutrophils # POC ABG pH POC ABG pCO2 POC ABG pO2 Sodium Potassium Chloride 97.4 L Carbon Dioxide 31 H BUN Glucose 177 H POC Glucose 200 H Hemoglobin A1c Lactic Acid Calcium Phosphorus Magnesium Total Bilirubin Direct Bilirubin AST Total Creatine Kinase CK-MB (CK-2) C-Reactive Protein Total Protein Albumin 04/22/18 04/22/18 04/23/18 12:15 18:04 04:55 WBC Hct MCHC RDW Plt Count Lymph % (Auto) [place] % (Auto) Lymph # [place] # Seg Neutrophils % Seg Neutrophils # POC ABG pH POC ABG pCO2 POC ABG pO2 Sodium Potassium Chloride Carbon Dioxide BUN 23 H Glucose 274 H POC Glucose 189 H 191 H Hemoglobin A1c Lactic Acid Calcium Phosphorus Magnesium Total Bilirubin Direct Bilirubin AST Total Creatine Kinase CK-MB (CK-2) C-Reactive Protein Total Protein Albumin 04/23/18 05:21 WBC Hct MCHC RDW Plt Count Lymph % (Auto) [place] % (Auto) Lymph # [place] # Seg Neutrophils % Seg Neutrophils # POC ABG pH POC ABG pCO2 POC ABG pO2 Sodium Potassium Chloride Carbon Dioxide BUN Glucose POC Glucose 143 H Hemoglobin A1c Lactic Acid Calcium Phosphorus Magnesium Total Bilirubin Direct Bilirubin AST Total Creatine Kinase CK-MB (CK-2) C-Reactive Protein Total Protein Albumin Chest x-ray: image reviewed (Subtle RLL infitrate on CXR, ETT 2cm above yanely) Additional Studies: KUB - no ileus or obstruction. Feeding tube in the stomach Allied health notes reviewed: RT
[2018-04-23] MEDS: DUONEB *Not for PRN Use IH SCH ×3 (08:29→19:40)
--- NOTE | 2018-04-23 08:56 | Progress Note ---
Assessment and Plan Assessment and plan: 78-year-old male patient with significant history of hypertension diabetes coronary artery disease was admitted through emergency room with history of unresponsiveness at home for unknown Duration of time. At that time he had hypoglycemia and seizure activity, Patient was unable to protect his airway and was intubated on ventilatory support admitted to ICU also with concern of Aspiration Pneumonia Hospital course -Neuro: Patient had CT scan 2 days does not show acute abnormality. 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 History this is most likely due to hypoglycemia, Now resolved Pulmonary: The patient has been maintained on mechanical ventilator, he's not been able to be weaned off the vent. The family wants to continue aggressive care. If the patient is not able, he will most likely need to be trached and peg FEN; his electrolytes namely potassium and phosphate were repleted ID; the patient received empiric antibiotics for pneumonia, Cultures including blood, urine and sputum has remained without growth. No new fever in the last 24hrs Musculoskeletal; Traumatic Rhabdomyolysis; status post IV fluids and improved, His medications were optimized for his chronic conditions Neuro: Unresponsive CXR: Concerning for Focal RLL infiltrate Diagnosis Acute respiratory failure with hypoxia -s/p intubation on MV Greater than 96hr -pulmonology following -will likely need Trach and peg Acute Toxic metabolic encephalopathy Likely secondary to Hypoxic Ischemic Encephalopathy -no significant change in ms -EEG abnormal -MRI brain neg -neurology following -Maintain sleep wake cycle Hypokalemia -resolved s/p repletion, will monitor Severe sepsis 2/2 aspiration PNA -resolved -off antibiotics FOLLOWING TREATMENT WITH ROCEPHIN AND FLAGYL Aspiration Pneumonia -completed antibiotics DM II with hyperglycemia - Was hypoglycemic on admission - BG improved - Cont current insulin regimen and adjust as needed Seizure, new onset -probably 2/2 hypoglycemia recorded by EMS staff prior to admission -stable on Keppra -cont seizure precautions Critical Illness Myopathy -cont supportive care Thrombocytopenia -level improved, will monitor Transaminitis -levels improved -Hepatitis panel neg -Abd US neg Rhabdomyolysis -improved Hypophosphatemia -resolved HTN -uncontrolled, meds adjusted Moderate protein calorie malnutrition -on tube feeding -dipper fish following Morbid obesity: Supportive care and counselling when awake DVT/GI prophylaxis with Lovenox and famotidine Poor Prognosis Trach/Peg and possible LTAC eval The high probability of a clinically significant, sudden or life threatening deterioration of the [Neurology, Pulmonary] system(s) required my full and direct attention, intervention and personal management. The aggregate critical care time was [35] minutes. This time is in addition to time spent performing reported procedures but includes the following: [x] Data Review and interpretation [x] Patient assessment and monitoring of vital signs [x] Documentation [x] Medication orders and management History Interval history: Patient seen and examined, Remains unresponsive. No overnight issues reported. Patient remains off sedation and not responsive. While patient withdrawals to noxious stimuli with my exam. Per nursing documentation, patient opens eyes but follows no commands, he moves his upper ext but not purposefully Hospitalist Physical - Physical exam Narrative exam: VITAL SIGNS: Reviewed. GENERAL: The patient appeared well nourished and normally developed. Continues on mechanical ventilation. Ventilatory support- unresponsive. Vital signs as documented. HEAD: No signs of head trauma. EYES: Pupils are equal. Sluggish response to light.. EARS: Unable to assess MOUTH: ET tube in place. NECK: No adenopathy, no JVD. CHEST: Chest with clear breath sounds bilaterally. No wheezes, rales, or rhonchi. CARDIAC: Bradycardia with regular rate. S1 and S2, without murmurs, gallops, or rubs. VASCULAR: No Edema. Peripheral pulses normal and equal in all extremities. ABDOMEN: Soft, without detectable tenderness. No sign of distention. No rebound or guarding, and no masses palpated. Bowel Sounds normal. MUSCULOSKELETAL: Unable to assess. Extremities without clubbing, cyanosis or edema. NEUROLOGIC EXAM: Unresponsive PSYCHIATRIC: Unable to assess SKIN: No rash or lesions. - Constitutional Vitals: Temp Pulse Resp BP Pulse Ox 98.7 F 67 17 149/71 100 04/23/18 07:32 04/23/18 08:29 04/23/18 08:29 04/23/18 08:23 04/23/18 08:23 General appearance: Present: no acute distress, other (intubated on vent) Results - Labs CBC & Chem 7: 04/22/18 04:07 04/23/18 04:55 Labs: Laboratory Last Values WBC 9.7 K/mm3 (4.5-11.0) 04/22/18 04:07 RBC 4.10 M/mm3 (3.65-5.03) 04/22/18 04:07 Hgb 12.6 gm/dl (11.8-15.2) 04/22/18 04:07 Hct 36.4 % (35.5-45.6) 04/22/18 04:07 MCV 89 fl (84-94) 04/22/18 04:07 MCH 31 pg (28-32) 04/22/18 04:07 MCHC 35 % (32-34) H 04/22/18 04:07 RDW 15.3 % (13.2-15.2) H 04/22/18 04:07 Plt Count 197 K/mm3 (140-440) 04/22/18 04:07 Lymph % (Auto) 21.2 % (13.4-35.0) 04/22/18 04:07 [place] % (Auto) 7.0 % (0.0-7.3) 04/22/18 04:07 Eos % (Auto) 3.5 % (0.0-4.3) 04/22/18 04:07 Baso % (Auto) 0.8 % (0.0-1.8) 04/22/18 04:07 Lymph # 2.0 K/mm3 (1.2-5.4) 04/22/18 04:07 [place] # 0.7 K/mm3 (0.0-0.8) 04/22/18 04:07 Eos # 0.3 K/mm3 (0.0-0.4) 04/22/18 04:07 Baso # 0.1 K/mm3 (0.0-0.1) 04/22/18 04:07 Seg Neutrophils % 67.5 % (40.0-70.0) 04/22/18 04:07 Seg Neutrophils # 6.5 K/mm3 (1.8-7.7) 04/22/18 04:07 APTT 24.8 Sec. (24.2-36.6) 04/09/18 23:16 POC ABG pH 7.497 (7.35-7.45) H 04/19/18 04:46 POC ABG pCO2 42.9 (35-45) 04/19/18 04:46 POC ABG pO2 119 (80-105) H 04/19/18 04:46 POC ABG HCO3 33.2 03/01/19 04:46 POC ABG Total CO2 35 04/19/18 04:46 POC ABG O2 Sat 99 04/19/18 04:46 POC ABG Base Excess 10 04/19/18 04:46 FiO2 30 % 04/19/18 04:46 Sodium 142 mmol/L (137-145) 04/23/18 04:55 Potassium 3.7 mmol/L (3.6-5.0) 04/23/18 04:55 Chloride 102.1 mmol/L (98-107) 04/23/18 04:55 Carbon Dioxide 29 mmol/L (22-30) 04/23/18 04:55 Anion Gap 15 mmol/L 04/23/18 04:55 BUN 23 mg/dL (9-20) H 04/23/18 04:55 Creatinine 0.8 mg/dL (0.8-1.5) 04/23/18 04:55 Estimated GFR > 60 ml/min 04/23/18 04:55 BUN/Creatinine Ratio 29 % 04/23/18 04:55 Glucose 274 mg/dL (75-100) H 04/23/18 04:55 POC Glucose 143 (70-105) H 04/23/18 05:21 Hemoglobin A1c 6.4 % (4-6) H 04/11/18 04:28 Lactic Acid 1.70 mmol/L (0.7-2.0) 04/10/18 02:47 Calcium 8.9 mg/dL (8.4-10.2) 04/23/18 04:55 Phosphorus 3.60 mg/dL (2.5-4.5) 04/21/18 05:00 Magnesium 2.10 mg/dL (1.7-2.3) 04/21/18 05:00 Total Bilirubin 1.20 mg/dL (0.1-1.2) 04/18/18 11:00 Direct Bilirubin 0.3 mg/dL (0-0.2) H 04/18/18 11:00 Indirect Bilirubin 0.9 mg/dL 04/18/18 11:00 AST 87 units/L (5-40) H 04/18/18 11:00 ALT 39 units/L (7-56) 04/18/18 11:00 Alkaline Phosphatase 59 units/L (35-129) 04/18/18 11:00 Total Creatine Kinase 2247 units/L (55-170) H 04/14/18 05:00 CK-MB (CK-2) 30.0 ng/mL (0.0-4.0) H 04/10/18 10:37 CK-MB (CK-2) Rel Index 0.3 (0-4) 04/10/18 10:37 Troponin T < 0.010 ng/mL (0.00-0.029) 04/10/18 10:37 C-Reactive Protein 7.20 mg/dL (0.00-1.30) H 04/11/18 13:43 Total Protein 6.8 g/dL (6.3-8.2) 04/18/18 11:00 Albumin 3.7 g/dL (3.9-5) L 04/18/18 11:00 Albumin/Globulin Ratio 1.2 % 04/18/18 11:00 Urine Color Yellow (Yellow) 04/10/18 01:07 Urine Turbidity Clear (Clear) 04/10/18 01:07 Urine pH 5.0 (5.0-7.0) 04/10/18 01:07 Ur Specific [place] 1.019 (1.003-1.030) 04/10/18 01:07 Urine Protein 100 mg/dl mg/dL (Negative) 04/10/18 01:07 Urine Glucose (UA) Neg mg/dL (Negative) 04/10/18 01:07 Urine Ketones Neg mg/dL (Negative) 04/10/18 01:07 Urine Blood Lg (Negative) 04/10/18 01:07 Urine Nitrite Neg (Negative) 04/10/18 01:07 Urine Bilirubin Neg (Negative) 04/10/18 01:07 Urine Urobilinogen < 2.0 mg/dL (<2.0) 04/10/18 01:07 Ur Leukocyte Esterase Neg (Negative) 04/10/18 01:07 Urine WBC (Auto) 1.0 /HPF (0.0-6.0) 04/10/18 01:07 Urine RBC (Auto) 9.0 /HPF (0.0-6.0) 04/10/18 01:07 U Epithel Cells (Auto) < 1.0 /HPF (0-13.0) 04/10/18 01:07 Urine Mucus Few /HPF 04/10/18 01:07 Levetiracetam 25.2 mcg/mL 04/12/18 20:37 Hepatitis A IgM Ab Non-reactive (NonReactive) 04/14/18 14:56 Hep Bs Antigen Non-reactive (Negative) 04/14/18 14:56 Hep B Core IgM Ab Non-reactive (NonReactive) 04/14/18 14:56 Hepatitis C Antibody Non-reactive (NonReactive) 04/14/18 14:56 Influenza A (Rapid) Negative (Negative) 04/11/18 15:08 Influenza B (Rapid) Negative (Negative) 04/11/18 15:08 - Imaging and Cardiology Chest x-ray: image reviewed (NO ACTIVE DISEASE NOTED ON CHEST XRAY) Nutrition/Malnutrition Assess - Dietary Evaluation Nutrition/Malnutrition Findings: Nutrition Notes Start: 04/11/18 10:20 Freq: Status: Active Protocol: Document 04/22/18 11:44 LP (Rec: 04/22/18 11:50 LP [id number]) Nutrition Notes Initial or Follow up Assessment Current Diagnosis Coronary Artery Disease Diabetes Hypertension Respiratory Failure Other Pertinent Diagnosis Pneu, new onset seizures, acute encephalopathy Current Diet Vital AF 1.2 at 50ml/hr Labs/Tests BG 177 Pertinent Medications Reviewed Height 5 ft 9 in Weight 91.5 kg [place] Body Weight (kg) 72.72 BMI 29.7 Subjective/Other Information Pt tolerating TF at goal rate. BG improved. Percent of energy/protein needs met: 98%/82% Burn Absent Trauma Absent #1 Nutrition Diagnosis Inadequate oral intake Diagnosis Progress(for reassessment Continues documentation) Is patient on ventilator? Yes Is Patient Ambulatory and/or Out of Bed No REE-([facility]-confined to bed) 1956.840 Kcal/Kg value to use for calculation 16 Approximate Energy Requirements Using 1464 kcal/Kg Calculation Used for Recommendations Kcal/kg Additional Notes Protein needs are 110-183g (1. 2-2g/kg) Fluid needs are 1ml/kcal Nutrition Intervention Change Diet Order: Vital AF 1.2 Nutrition Support: Vital 1.2 at 50 mL/hr. Water flush 80 mL q4h. Kcal 1,440 Protein (gm) 90 Carbohydrates (gm) 133 Fluid (mL) 973 Goal #1 Meet at least 80% of kcal and protein needs Anticipated Discharge Needs: Unable to determine at this time Follow-Up By: 04/25/18 Additional Comments Follow for stable TF
[2018-04-23] MEDS: NORVASC FEEDTUBE SCH (09:26)
[2018-04-23] MEDS: SODIUM CHLORIDE FLUSH SYRINGE 10 ML IV SCH ×2 (09:26→22:02)
[2018-04-23] MEDS: KEPPRA PO SCH ×2 (09:27→22:01)
[2018-04-23] MEDS: LOPRESSOR PO SCH ×2 (09:28→22:01)
[2018-04-23] MEDS: LOVENOX SUB-Q SCH (09:29)
[2018-04-23] MEDS: PEPCID PO SCH ×2 (09:30→22:01)
--- NOTE | 2018-04-23 09:52 | Progress Note ---
Assessment and Plan Cultures: Blood culture 04/09/2018 no growth so far Urine culture 04/10/2018 no growth so far Sputum culture 04/10/2018 upper respiratory mikayla. Blood culture 04/22/2018 no growth so far Assessment: 78 y/o male with history of hypertension, diabetes, coronary artery disease; admitted on 04/09/2018 due to be found unresponsive at home when the family has not heard from him. EMS was called, his blood sugar was undetectable: 1) Sepsis: New fever 3/2 and 3/3 ?. Etiology most likely aspiration pneumonia fully treated. Blood culture 04/11/2018 no growth so far. UA neg. CRP=7. Nursing staff reporting vomiting overnight 04/23 ? aspiration 2) Presumed aspiration versus CAP: CXR focal infiltrate RLL. Sputum culture 04/10/2018 upper respiratory mikayla. Influenza neg. Repeat CXR neg 3) Acute respiratory failure: on vent, from encephalopathy/pneumonia 4) Generalized seizures: from hypoglycemia, resolved 5) Elevated LFTs: better; from sepsis or other etiologies? rhabdo, better. Viral hepatitis serology all negative. US no visualized GB. LFTs better 6) Acute encephalopathy: post seizures/ischemia. somnolent 7) Rhabdomyolysis: better Recommendations: - repeat CXR as Nursing staff reporting vomiting overnight 04/23 ? aspiration - noted fever 3/2 and 3/3 f/u blood cx - completed ceftriaxone D5 of 5, azithromycin D5 of 5 on 04/17/2018 and flagyl D5 of 5 to cover CAP versus aspiration pneumonia - aspiration precautions Discussed with Dr Medina will follow Tiffanie Crowe MD [facility] Transc[employer] [facility] M [phone] O [phone] Subjective Date of service: 04/23/18 Principal diagnosis: Ac Hypoxemic Resp Failure; Seizures; Encephalopathy; DM II; Rhabdomyolysis Interval history: Remains intubated on BIPAP, off sedation, open eyes, no fever for 26h. NS reporting vomiting overnight. ROS: unable to obtain Objective - Exam Narrative Exam: General appearance: open eyes, intubated on BIPAP in NAD Eyes: anicteric sclerae, moist conjunctivae; no lid-lag; PERRLA HENT: Atraumatic; oropharynx ETT/NGT Neck: Trachea midline; supple, no thyromegaly or lymphadenopathy Lungs: griffin coarse BS CV:bradycardic Abdomen: Soft, non-tender; no masses or hepatosplenomegaly Extremities: No peripheral edema or extremity lymphadenopathy Skin: Normal temperature, turgor and texture; no rash, ulcers or subcutaneous nodules Psych: somnolent Neuro: somnolent PICC line Condom cath - Constitutional Vitals: Vital Signs Temp Pulse Resp BP Pulse Ox 98.7 F 55 L 15 154/71 100 04/23/18 07:32 04/23/18 09:28 04/23/18 08:51 04/23/18 09:28 04/23/18 08:23 Temperature -Last 24 Hours Temperature 98.7 F Temperature 98.7 F Temperature 99.4 F Temperature 99.2 F Temperature 98.2 F Temperature 98.5 F - Labs CBC & Chem 7: 04/22/18 04:07 04/23/18 04:55 Labs: Abnormal lab results 04/22/18 04/22/18 04/23/18 Range/Units 12:15 18:04 04:55 BUN 23 H (9-20) mg/dL Glucose 274 H (75-100) mg/dL POC Glucose 189 H 191 H (70-105) 04/23/18 Range/Units 05:21 BUN (9-20) mg/dL Glucose (75-100) mg/dL POC Glucose 143 H (70-105)
[2018-04-23] MEDS: PROVIGIL PO SCH (10:00)
[2018-04-23] MEDS: LANTUS SUB-Q SCH (10:32)
--- NOTE | 2018-04-23 11:02 | XRay Report ---
AP ABDOMEN: HISTORY: Dobbhoff tube placement. The Dobbhoff tube terminates in the cardia of the stomach. The abdominal gas pattern is unremarkable. No masses or organomegaly is identified and there is no gross evidence of free air or fluid. No significant soft tissue calcifications are noted. IMPRESSION: Unremarkable abdomen.
--- NOTE | 2018-04-23 11:02 | XRay Report ---
AP CHEST: HISTORY: New fever and vomiting AP view of the chest demonstrates a normal mediastinal and cardiac contour with clear lungs and normal bony and soft tissue structures. IMPRESSION: Unremarkable AP chest.
--- NOTE | 2018-04-23 16:14 | Consultation ---
History of Present Illness Consult date: 04/23/18 Reason for consult: other (trach/PEG eval) Requesting physician: JUAN C MARSHALL Chief complaint: altered mental status - History of present illness History of present illness: 78yo M with multiple medical problems was found down at home for an unknown period of time. He has been assessed of ischemic encephalopathy. He is unable to safely weaned from the ventilator. Request has been made for tracheostomy and PEG tube evaluation. Patient is unable to participate in the interview. Information was obtained from the chart and from the son. 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 denies: smoking (not for many years), alcohol abuse, prescription drug abuse, IV drug use Family history: diabetes (sister, brother), hypertension (3 sisters, several bro thers), other (no epilepsy ). denies: stroke Medications and Allergies Allergies Allergy/AdvReac Type Severity Reaction Status Date / Time No Known Allergies Allergy Unverified 05/04/15 21:26 Home Medications Medication Instructions Recorded Confirmed Last Taken Type Gabapentin [Neurontin] 100 mg PO HS 04/10/18 04/10/18 Unknown History Insulin Aspart Prot/Aspart(Nf) 6 - 8 units SUB-Q QAM 04/10/18 04/10/18 Unknown History [Novolog Mix 70/30] Insulin Aspart Prot/Aspart(Nf) 28 units SUB-Q QPM 04/10/18 04/10/18 Unknown History [Novolog Mix 70/30] Lisinopril [Zestril] 20 mg PO QDAY 04/10/18 04/10/18 Unknown History Metoprolol Tartrate 25 mg PO BID 04/10/18 04/10/18 Unknown History Pravastatin [Pravachol] 40 mg PO QHS 04/10/18 04/10/18 Unknown History Tamsulosin HCl [Flomax] 0.4 mg PO HS 04/10/18 04/10/18 Unknown History amLODIPine [Norvasc] 10 mg PO DAILY 04/10/18 04/10/18 Unknown History traMADol [Ultram] 50 mg PO QDAY PRN 04/10/18 04/10/18 Unknown History Active Meds: Active Medications Acetaminophen (Tylenol) 650 mg PO Q4H PRN PRN Reason: Fever >101 Albuterol/Ipratropium (Duoneb *Not For Prn Use*) 1 ampul IH TIDRT [facility] Last Admin: 04/23/18 13:25 Dose: 1 ampul Documented by: Amlodipine Besylate (Norvasc) 10 mg FEEDTUBE QDAY [facility] Last Admin: 04/23/18 09:26 Dose: 10 mg Documented by: Lipase/Protease/Amylase (Christiano Mclain 10,500 Unit) 1 each FEEDTUBE PRN PRN PRN Reason: For Clogged Feeding Tube Enoxaparin Sodium (Lovenox) 40 mg SUB-Q QDAY@1000 [facility] Last Admin: 04/23/18 09:29 Dose: 40 mg Documented by: Famotidine (Pepcid) 20 mg PO BID [facility] Last Admin: 04/23/18 09:30 Dose: 20 mg Documented by: Fentanyl (Sublimaze) 50 mcg IV Q10MIN PRN PRN Reason: ANALGESIA Hydralazine HCl (Apresoline) 10 mg IV Q6H PRN PRN Reason: SBP > 170 Last Admin: 04/21/18 08:48 Dose: 10 mg Documented by: Hydrophilic Ointment (Vaseline Lip Therapy) 1 applic TP Q2HR PRN PRN Reason: Dry Lips Fentanyl Citrate (Fentanyl Drip Premix) 2,000 mcg in 100 mls @ 4.73 mls/hr IV TITR [facility]; Protocol Last Admin: 04/14/18 11:33 Dose: 0.51 mcg/kg/hr, 2.42 mls/hr Documented by: Insulin Glargine (Lantus) 20 units SUB-Q DAILY [facility] Last Admin: 04/23/18 10:32 Dose: 20 units Documented by: Insulin Human Lispro (Humalog) 0 unit SUB-Q Q6HR [facility]; Protocol Last Admin: 04/23/18 11:15 Dose: 2 unit Documented by: Insulin Human Regular (Humulin R) 5 units SUB-Q TID [facility] Last Admin: 04/23/18 14:05 Dose: 5 units Documented by: Levetiracetam (Keppra) 750 mg PO BID [facility] Last Admin: 04/23/18 09:27 Dose: 750 mg Documented by: Metoprolol Tartrate (Lopressor) 50 mg PO BID [facility] Last Admin: 04/23/18 09:28 Dose: 50 mg Documented by: Modafinil (Provigil) 200 mg PO QAM [facility] Last Admin: 04/23/18 10:00 Dose: 200 mg Documented by: Multi-Ingred Cream/Lotion/Oil/Oint (Artificial Tears Ophth Oint) 1 applic OU Q4HR PRN PRN Reason: Dry Eye(s) Ondansetron HCl (Zofran) 4 mg IV Q8H PRN PRN Reason: Nausea And Vomiting Last Admin: 04/23/18 14:48 Dose: 4 mg Documented by: Scopolamine (Transderm-Scop) 1 each TD Q3D [facility] Last Admin: 04/21/18 11:43 Dose: 1 each Documented by: Simple Syrup (Simple Syrup) 15 ml FEEDTUBE PRN PRN PRN Reason: Hypoglycemia Simple Syrup (Simple Syrup) 30 ml FEEDTUBE PRN PRN PRN Reason: Hypoglycemia Sodium Bicarbonate (Sodium Bicarbonate) 325 mg FEEDTUBE PRN PRN PRN Reason: For Clogged Feeding Tube Sodium Chloride (Sodium Chloride Flush Syringe 10 Ml) 10 ml IV BID [facility] Last Admin: 04/23/18 09:26 Dose: 10 ml Documented by: Sodium Chloride (Sodium Chloride Flush Syringe 10 Ml) 10 ml IV PRN PRN PRN Reason: LINE FLUSH Review of Systems ROS unobtainable: due to mental status Exam Vital Signs Pulse Ox 92 04/09/18 22:48 - General physical appearance Positive: no distress, no pain, other (not interactive) - Neck Positive: trachea midline (anatomy is palpable. No signs of prior surgery or recent infection) - Respiratory Positive: normal expansion, normal respiratory effort - Cardiovascular Rhythm: regular - Abdomen Abdomen: Present: soft, surgical scars (subcostal incision in RUQ). Absent: tender, guarding, rigid - Integumentary no rash, no growths, no abnormal pigmentation Results - Labs 04/22/18 04:07 04/23/18 04:55 Abnormal lab results 04/22/18 04/23/18 04/23/18 Range/Units 18:04 04:55 05:21 BUN 23 H (9-20) mg/dL Glucose 274 H (75-100) mg/dL POC Glucose 191 H 143 H (70-105) 04/23/18 Range/Units 11:06 BUN (9-20) mg/dL Glucose (75-100) mg/dL POC Glucose 176 H (70-105) Diabetes panel 04/23/18 Range/Units 04:55 Sodium 142 (137-145) mmol/L Potassium 3.7 (3.6-5.0) mmol/L Chloride 102.1 (98-107) mmol/L Carbon Dioxide 29 (22-30) mmol/L BUN 23 H (9-20) mg/dL Creatinine 0.8 (0.8-1.5) mg/dL Glucose 274 H (75-100) mg/dL Calcium 8.9 (8.4-10.2) mg/dL Calcium panel 04/23/18 Range/Units 04:55 Calcium 8.9 (8.4-10.2) mg/dL Pituitary panel 04/23/18 Range/Units 04:55 Sodium 142 (137-145) mmol/L Potassium 3.7 (3.6-5.0) mmol/L Chloride 102.1 (98-107) mmol/L Carbon Dioxide 29 (22-30) mmol/L BUN 23 H (9-20) mg/dL Creatinine 0.8 (0.8-1.5) mg/dL Glucose 274 H (75-100) mg/dL Calcium 8.9 (8.4-10.2) mg/dL Adrenal panel 04/23/18 Range/Units 04:55 Sodium 142 (137-145) mmol/L Potassium 3.7 (3.6-5.0) mmol/L Chloride 102.1 (98-107) mmol/L Carbon Dioxide 29 (22-30) mmol/L BUN 23 H (9-20) mg/dL Creatinine 0.8 (0.8-1.5) mg/dL Glucose 274 H (75-100) mg/dL Calcium 8.9 (8.4-10.2) mg/dL - Imaging Chest x-ray: report reviewed, image reviewed Additional studies: CT Head report reviewed Assessment and Plan - Patient Problems (1) Altered mental state Current Visit: Yes Status: Acute Qualifiers: Altered mental status type: unspecified Qualified Code(s): R41.82 - Altered mental status, unspecified Plan to address problem: Pt stable. I had a long discussion with both sons. We discussed the procedure, risks, benefits. We discussed expectations. We discussed goals of care. He is a candidate for both procedures if they wish to proceed. They will talk as a family and then get back to me. I will follow-up with them this week. Please call with questions. time=60min
[2018-04-24] MEDS: HumaLOG SUB-Q SCH ×3 (00:22→12:00)
--- NOTE | 2018-04-24 07:56 | Progress Note ---
Assessment and Plan Assessment and plan: 78-year-old male patient with significant history of hypertension diabetes coronary artery disease was admitted through emergency room with history of unresponsiveness at home for unknown Duration of time. At that time he had hypoglycemia and seizure activity, Patient was unable to protect his airway and was intubated on ventilatory support admitted to ICU also with concern of Aspiration Pneumonia Hospital course -Neuro: Patient had CT scan 2 days does not show acute abnormality. 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 History this is most likely due to hypoglycemia, Now resolved Pulmonary: The patient has been maintained on mechanical ventilator, he's not been able to be weaned off the vent. The family wants to continue aggressive care. If the patient is not able, he will most likely need to be trached and peg FEN; his electrolytes namely potassium and phosphate were repleted ID; the patient received empiric antibiotics for pneumonia, Cultures including blood, urine and sputum has remained without growth. No new fever in the last 24hrs Musculoskeletal; Traumatic Rhabdomyolysis; status post IV fluids and improved, His medications were optimized for his chronic conditions Neuro: Unresponsive CXR: Concerning for Focal RLL infiltrate initally, repeat done 04/23/18 shows no acute pathology. Diagnosis Acute respiratory failure with hypoxia -s/p intubation on MV Greater than 96hr -pulmonology following -will likely need Trach and peg- surgeon consulted Acute Toxic metabolic encephalopathy Likely secondary to Hypoxic Ischemic Encephalopathy vs hypgolycemic encephalopathy -no significant change in ms -EEG abnormal -MRI brain neg -neurology following -Maintain sleep wake cycle - Discussed with Sons and sister extensively, Repeat EEG is pending. Will also obtain neurology re-evaluation. They understand the prognosis is poor. Hypokalemia -resolved s/p repletion, will monitor Severe sepsis 2/2 aspiration PNA -resolved -off antibiotics FOLLOWING TREATMENT WITH ROCEPHIN AND FLAGYL Aspiration Pneumonia -completed antibiotics - No new fever DM II with hyperglycemia - Was hypoglycemic on admission - BG improved - Cont current insulin regimen and adjust as needed Seizure, new onset -probably 2/2 hypoglycemia recorded by EMS staff prior to admission -stable on Keppra -cont seizure precautions Critical Illness Myopathy -cont supportive care Thrombocytopenia -level improved, will monitor Transaminitis -levels improved -Hepatitis panel neg -Abd US neg Rhabdomyolysis -improved Hypophosphatemia -resolved HTN -uncontrolled, meds adjusted Moderate protein calorie malnutrition -on tube feeding -x ray control equipment repairer following Morbid obesity: Supportive care and counselling when awake DVT/GI prophylaxis with Lovenox and famotidine Poor Prognosis Trach/Peg and possible LTAC eval OUPDATED FAMILY AT BEDSIDE. Will call with further updates once Repeat EEG reports available. The high probability of a clinically significant, sudden or life threatening deterioration of the [Neurology, Pulmonary] system(s) required my full and direct attention, intervention and personal management. The aggregate critical care time was [35] minutes. This time is in addition to time spent performing reported procedures but includes the following: [x] Data Review and interpretation [x] Patient assessment and monitoring of vital signs [x] Documentation [x] Medication orders and management History Interval history: Patient seen and examined, Remains unresponsive. No overnight issues reported. Had some reported vomiting episode yesterday but no reoccurrence Patient remains off sedation and not responsive. Hospitalist Physical - Physical exam Narrative exam: VITAL SIGNS: Reviewed. GENERAL: The patient appeared well nourished and normally developed. Continues on mechanical ventilation. Ventilatory support- unresponsive. Vital signs as documented. HEAD: No signs of head trauma. EYES: Pupils are equal. Sluggish response to light.. EARS: Unable to assess MOUTH: ET tube in place. NECK: No adenopathy, no JVD. CHEST: Chest with clear breath sounds bilaterally. No wheezes, rales, or rhonchi. CARDIAC: Bradycardia with regular rate. S1 and S2, without murmurs, gallops, or rubs. VASCULAR: No Edema. Peripheral pulses normal and equal in all extremities. ABDOMEN: Soft, without detectable tenderness. No sign of distention. No rebound or guarding, and no masses palpated. Bowel Sounds normal. MUSCULOSKELETAL: Unable to assess. Extremities without clubbing, cyanosis or edema. NEUROLOGIC EXAM: Unresponsive, MOVES EXT. OPENS EYES BUT NOT FOLLOWING COMMNAND PSYCHIATRIC: Unable to assess SKIN: No rash or lesions. - Constitutional Vitals: Temp Pulse Resp BP Pulse Ox 99.1 F 48 L 11 L 112/60 100 04/24/18 04:00 04/24/18 07:00 04/24/18 07:00 04/24/18 07:00 04/24/18 07:00 General appearance: Present: no acute distress, other (intubated on vent) Results - Labs CBC & Chem 7: 04/22/18 04:07 04/23/18 04:55 Labs: Laboratory Last Values WBC 9.7 K/mm3 (4.5-11.0) 04/22/18 04:07 RBC 4.10 M/mm3 (3.65-5.03) 04/22/18 04:07 Hgb 12.6 gm/dl (11.8-15.2) 04/22/18 04:07 Hct 36.4 % (35.5-45.6) 04/22/18 04:07 MCV 89 fl (84-94) 04/22/18 04:07 MCH 31 pg (28-32) 04/22/18 04:07 MCHC 35 % (32-34) H 04/22/18 04:07 RDW 15.3 % (13.2-15.2) H 04/22/18 04:07 Plt Count 197 K/mm3 (140-440) 04/22/18 04:07 Lymph % (Auto) 21.2 % (13.4-35.0) 04/22/18 04:07 [place] % (Auto) 7.0 % (0.0-7.3) 04/22/18 04:07 Eos % (Auto) 3.5 % (0.0-4.3) 04/22/18 04:07 Baso % (Auto) 0.8 % (0.0-1.8) 04/22/18 04:07 Lymph # 2.0 K/mm3 (1.2-5.4) 04/22/18 04:07 [place] # 0.7 K/mm3 (0.0-0.8) 04/22/18 04:07 Eos # 0.3 K/mm3 (0.0-0.4) 04/22/18 04:07 Baso # 0.1 K/mm3 (0.0-0.1) 04/22/18 04:07 Seg Neutrophils % 67.5 % (40.0-70.0) 04/22/18 04:07 Seg Neutrophils # 6.5 K/mm3 (1.8-7.7) 04/22/18 04:07 APTT 24.8 Sec. (24.2-36.6) 04/09/18 23:16 POC ABG pH 7.497 (7.35-7.45) H 04/19/18 04:46 POC ABG pCO2 42.9 (35-45) 04/19/18 04:46 POC ABG pO2 119 (80-105) H 04/19/18 04:46 POC ABG HCO3 33.2 04/19/18 04:46 POC ABG Total CO2 35 04/19/18 04:46 POC ABG O2 Sat 99 04/19/18 04:46 POC ABG Base Excess 10 04/19/18 04:46 FiO2 30 % 04/19/18 04:46 Sodium 142 mmol/L (137-145) 04/23/18 04:55 Potassium 3.7 mmol/L (3.6-5.0) 04/23/18 04:55 Chloride 102.1 mmol/L (98-107) 04/23/18 04:55 Carbon Dioxide 29 mmol/L (22-30) 04/23/18 04:55 Anion Gap 15 mmol/L 04/23/18 04:55 BUN 23 mg/dL (9-20) H 04/23/18 04:55 Creatinine 0.8 mg/dL (0.8-1.5) 04/23/18 04:55 Estimated GFR > 60 ml/min 04/23/18 04:55 BUN/Creatinine Ratio 29 % 04/23/18 04:55 Glucose 274 mg/dL (75-100) H 04/23/18 04:55 POC Glucose 175 (70-105) H 04/24/18 06:02 Hemoglobin A1c 6.4 % (4-6) H 04/11/18 04:28 Lactic Acid 1.70 mmol/L (0.7-2.0) 04/10/18 02:47 Calcium 8.9 mg/dL (8.4-10.2) 04/23/18 04:55 Phosphorus 3.60 mg/dL (2.5-4.5) 04/21/18 05:00 Magnesium 2.10 mg/dL (1.7-2.3) 04/21/18 05:00 Total Bilirubin 1.20 mg/dL (0.1-1.2) 04/18/18 11:00 Direct Bilirubin 0.3 mg/dL (0-0.2) H 04/18/18 11:00 Indirect Bilirubin 0.9 mg/dL 04/18/18 11:00 AST 87 units/L (5-40) H 04/18/18 11:00 ALT 39 units/L (7-56) 04/18/18 11:00 Alkaline Phosphatase 59 units/L (35-129) 04/18/18 11:00 Total Creatine Kinase 2247 units/L (55-170) H 04/14/18 05:00 CK-MB (CK-2) 30.0 ng/mL (0.0-4.0) H 04/10/18 10:37 CK-MB (CK-2) Rel Index 0.3 (0-4) 04/10/18 10:37 Troponin T < 0.010 ng/mL (0.00-0.029) 04/10/18 10:37 C-Reactive Protein 7.20 mg/dL (0.00-1.30) H 04/11/18 13:43 Total Protein 6.8 g/dL (6.3-8.2) 04/18/18 11:00 Albumin 3.7 g/dL (3.9-5) L 04/18/18 11:00 Albumin/Globulin Ratio 1.2 % 04/18/18 11:00 Urine Color Yellow (Yellow) 04/10/18 01:07 Urine Turbidity Clear (Clear) 04/10/18 01:07 Urine pH 5.0 (5.0-7.0) 04/10/18 01:07 Ur Specific [place] 1.019 (1.003-1.030) 04/10/18 01:07 Urine Protein 100 mg/dl mg/dL (Negative) 04/10/18 01:07 Urine Glucose (UA) Neg mg/dL (Negative) 04/10/18 01:07 Urine Ketones Neg mg/dL (Negative) 04/10/18 01:07 Urine Blood Lg (Negative) 04/10/18 01:07 Urine Nitrite Neg (Negative) 04/10/18 01:07 Urine Bilirubin Neg (Negative) 04/10/18 01:07 Urine Urobilinogen < 2.0 mg/dL (<2.0) 04/10/18 01:07 Ur Leukocyte Esterase Neg (Negative) 04/10/18 01:07 Urine WBC (Auto) 1.0 /HPF (0.0-6.0) 04/10/18 01:07 Urine RBC (Auto) 9.0 /HPF (0.0-6.0) 04/10/18 01:07 U Epithel Cells (Auto) < 1.0 /HPF (0-13.0) 04/10/18 01:07 Urine Mucus Few /HPF 04/10/18 01:07 Levetiracetam 25.2 mcg/mL 04/12/18 20:37 Hepatitis A IgM Ab Non-reactive (NonReactive) 04/14/18 14:56 Hep Bs Antigen Non-reactive (Negative) 04/14/18 14:56 Hep B Core IgM Ab Non-reactive (NonReactive) 04/14/18 14:56 Hepatitis C Antibody Non-reactive (NonReactive) 04/14/18 14:56 Influenza A (Rapid) Negative (Negative) 04/11/18 15:08 Influenza B (Rapid) Negative (Negative) 04/11/18 15:08 Nutrition/Malnutrition Assess - Dietary Evaluation Nutrition/Malnutrition Findings: Nutrition Notes Start: 04/11/18 10:20 Freq: Status: Active Protocol: Document 04/22/18 11:44 LP (Rec: 04/22/18 11:50 LP [id number]) Nutrition Notes Initial or Follow up Assessment Current Diagnosis Coronary Artery Disease, Diabetes,Hypertension, Respiratory Failure Other Pertinent Diagnosis Pneu, new onset seizures, acute encephalopathy Current Diet Vital AF 1.2 at 50ml/hr Labs/Tests BG 177 Pertinent Medications Reviewed Height 5 ft 9 in Weight 91.5 kg [place] Body Weight (kg) 72.72 BMI 29.7 Subjective/Other Information Pt tolerating TF at goal rate. BG improved. Percent of energy/protein needs met: 98%/82% Burn Absent Trauma Absent #1 Nutrition Diagnosis Inadequate oral intake Diagnosis Progress(for reassessment Continues documentation) Is patient on ventilator? Yes Is Patient Ambulatory and/or Out of Bed No REE-([facility]-confined to bed) 1956.840 Kcal/Kg value to use for calculation 16 Approximate Energy Requirements Using 1464 kcal/Kg Calculation Used for Recommendations Kcal/kg Additional Notes Protein needs are 110-183g (1. 2-2g/kg) Fluid needs are 1ml/kcal Nutrition Intervention Change Diet Order: Vital AF 1.2 Nutrition Support: Vital 1.2 at 50 mL/hr. Water flush 80 mL q4h. Kcal 1,440 Protein (gm) 90 Carbohydrates (gm) 133 Fluid (mL) 973 Goal #1 Meet at least 80% of kcal and protein needs Anticipated Discharge Needs: Unable to determine at this time Follow-Up By: 04/25/18 Additional Comments Follow for stable TF
[2018-04-24] MEDS: HumuLIN R SUB-Q SCH ×3 (08:00→20:42)
[2018-04-24] MEDS: DUONEB *Not for PRN Use IH SCH ×3 (08:33→20:07)
--- NOTE | 2018-04-24 08:40 | Progress Note ---
Assessment and Plan Acute Hypoxemic Respiratory Failure on MVS for airway protection/seizures New Onset Seizures (presumed secondary to Hypoglycemia) Acute Encephalopathy (Toxic -Metabolic) Hypoxic ischemic encephalopathy Diabetes Type II, hypoglycemia Rhabdomyolysis Obesity HTN Possible JEO Hyponatremia (mild) Hypomagnesemia Leucocytosis h/o Alcohol use disorder Medical decision making --continue neurostimulant -Blood pressure control -Secretion management -Avoid delirium, maintain sleep-wake cycle. -Discussed with son at the bedside, he is agreeable to trachesotomy if needed -General surgery consult for trachesotomy -No clinical evidence of pneumonia, follow up imaging to continue to monitor the RLL infiltrate -Continue to monitor off antibiotics -Follow up EEG pending All other care as outlined below. -VAP bundle addressed -Anti-seizure medications -Analgesia and agitation management. -VTE and stress ulcer prophylaxis -AEDs (Keppra) -Enteric nutrition with glycemic control -Target blood glucose level 140-180mg/dL -Avoid hypoglycemia -Critical care bundles addressed -Aspiration precautions - Wean supplemental oxygen to keep O2 sats > 90% -Lung protective strategies - Bronchodilators per protocol - Daily SAT's and SBT - Replace electrolytes as indicated Discussed with RT and RN CONDITION: CRITICAL PROGNOSIS: GUARDED CODE STATUS: FULL CODE The high probability of a clinically significant, sudden or life-threatening deterioration of the [respiratory, renal, endocrine, neurology] system(s) required my full and direct attention, intervention and personal management. The aggregate critical care time was [31] minutes without overlap. Time includes s pent on; [x] Data Review and interpretation [x] Patient assessment and monitoring of vital signs [x] Documentation [x] Medication orders and management Subjective Date of service: 04/24/18 Principal diagnosis: Ac Hypoxemic Resp Failure; Seizures; Encephalopathy; DM II; Rhabdomyolysis Interval history: Patient is seen today for: Acute Hypoxemic Respiratory Failure; New Onset Seizures (presumed secondary to Hypoglycemia); Acute Encephalopathy (Toxic - Metabolic); Diabetes Type II; Rhabdomyolysis Seen and examined at bedside; 24hour events reviewed; nursing and respiratory care staff consulted; no adverse overnight events reported to me; resting peacefully in bed; remains encephalopathic, though he tolerates SBT trials PSV 8/6 with tidal volumes of 450 ml, improved oral secretions. Remains on MVS, no fevers documented overnight.No further episodes of vomiting, tolerating tube feeding. No fevers, Objective Vital Signs - 12hr 04/23/18 04/23/18 04/23/18 21:00 22:00 22:01 Temperature Pulse Rate 52 L 59 L 65 Pulse Rate [ From Monitor] Pulse Rate [ Throughout] Respiratory 11 L 16 Rate Respiratory Rate [ Throughout] Blood Pressure 120/60 120/60 151/66 O2 Sat by Pulse 100 Oximetry 04/23/18 04/23/18 04/24/18 23:00 23:17 00:00 Temperature 99.7 F H Pulse Rate 52 L 52 L 61 Pulse Rate [ 53 L From Monitor] Pulse Rate [ Throughout] Respiratory 11 L 10 L Rate Respiratory Rate [ Throughout] Blood Pressure 124/63 131/71 123/62 O2 Sat by Pulse 100 100 Oximetry 04/24/18 04/24/18 04/24/18 01:00 02:00 03:00 Temperature Pulse Rate 51 L 48 L 58 L Pulse Rate [ From Monitor] Pulse Rate [ Throughout] Respiratory 12 12 10 L Rate Respiratory Rate [ Throughout] Blood Pressure 140/65 112/60 135/65 O2 Sat by Pulse 100 100 100 Oximetry 04/24/18 04/24/18 04/24/18 03:13 03:43 04:00 Temperature 99.1 F Pulse Rate 50 L 51 L Pulse Rate [ 48 L From Monitor] Pulse Rate [ Throughout] Respiratory 14 13 Rate Respiratory Rate [ Throughout] Blood Pressure 140/71 137/62 O2 Sat by Pulse 100 100 100 Oximetry 04/24/18 04/24/18 04/24/18 05:00 06:00 07:00 Temperature Pulse Rate 49 L 51 L 48 L Pulse Rate [ From Monitor] Pulse Rate [ Throughout] Respiratory 12 12 11 L Rate Respiratory Rate [ Throughout] Blood Pressure 132/63 109/58 112/60 O2 Sat by Pulse 100 100 100 Oximetry 04/24/18 04/24/18 04/24/18 08:00 08:29 08:33 Temperature Pulse Rate 48 L 54 L Pulse Rate [ 53 L From Monitor] Pulse Rate [ 55 L Throughout] Respiratory 12 15 Rate Respiratory 16 Rate [ Throughout] Blood Pressure 123/59 130/64 O2 Sat by Pulse 100 100 Oximetry Constitutional: no acute distress, other (Elderly looking AAM, normocephalic and atraumatic with mildly increased respiratory effort on MVS) Eyes: non-icteric ENT: oropharynx moist, other (ETT 23 cm STEPHANIE) Neck: supple, no lymphadenopathy, no JVD, other (large neck circumference) Effort: mildly labored Ascultation: Bilateral: diminished breath sounds, rhonchi Percussion: Bilateral: not dull Cardiovascular: regular rate and rhythm Gastrointestinal: normoactive bowel sounds, soft, non-tender, non-distended, other (protuberant) Integumentary: normal Extremities: no cyanosis, no edema, pulses normal, no ischemia or petechiae Neurologic: pupils equal and round, unable to assess Psychiatric: other (unable to assess) CBC and BMP: 04/25/18 05:22 04/25/18 05:22 ABG, PT/INR, D-dimer: ABG POC ABG pH 7.497 (7.35-7.45) H 04/19/18 04:46 POC ABG pCO2 42.9 (35-45) 04/19/18 04:46 POC ABG pO2 119 (80-105) H 04/19/18 04:46 POC ABG HCO3 33.2 04/19/18 04:46 POC ABG Total CO2 35 04/19/18 04:46 POC ABG O2 Sat 99 04/19/18 04:46 Abnormal lab findings: Abnormal Labs 04/09/18 04/09/18 04/09/18 23:16 23:16 23:16 WBC 13.6 H Hct MCHC RDW Plt Count Lymph % (Auto) 9.4 L O'Brien % (Auto) Lymph # O'Brien # Seg Neutrophils % 87.3 H Seg Neutrophils # 11.9 H POC ABG pH POC ABG pCO2 POC ABG pO2 Sodium 132 L Potassium Chloride 92.7 L Carbon Dioxide BUN Glucose 143 H POC Glucose Hemoglobin A1c Lactic Acid 2.10 H* Calcium Phosphorus Magnesium Total Bilirubin 2.20 H Direct Bilirubin AST 107 H Total Creatine Kinase CK-MB (CK-2) C-Reactive Protein Total Protein Albumin 04/10/18 04/10/18 04/10/18 00:38 00:55 01:13 WBC Hct MCHC RDW Plt Count Lymph % (Auto) O'Brien % (Auto) Lymph # O'Brien # Seg Neutrophils % Seg Neutrophils # POC ABG pH POC ABG pCO2 POC ABG pO2 Sodium Potassium Chloride Carbon Dioxide BUN Glucose POC Glucose 117 H 121 H Hemoglobin A1c Lactic Acid 2.10 H* Calcium Phosphorus Magnesium Total Bilirubin Direct Bilirubin AST Total Creatine Kinase CK-MB (CK-2) C-Reactive Protein Total Protein Albumin 04/10/18 04/10/18 04/10/18 02:10 03:51 04:07 WBC 14.0 H Hct MCHC RDW Plt Count Lymph % (Auto) 7.5 L O'Brien % (Auto) Lymph # 1.1 L O'Brien # 1.0 H Seg Neutrophils % 84.9 H Seg Neutrophils # 11.8 H POC ABG pH POC ABG pCO2 POC ABG pO2 Sodium Potassium Chloride Carbon Dioxide BUN Glucose POC Glucose 153 H 158 H Hemoglobin A1c Lactic Acid Calcium Phosphorus Magnesium Total Bilirubin Direct Bilirubin AST Total Creatine Kinase CK-MB (CK-2) C-Reactive Protein Total Protein Albumin 04/10/18 04/10/18 04/10/18 04:07 06:56 09:48 WBC Hct MCHC RDW Plt Count Lymph % (Auto) O'Brien % (Auto) Lymph # O'Brien # Seg Neutrophils % Seg Neutrophils # POC ABG pH POC ABG pCO2 POC ABG pO2 Sodium 130 L Potassium Chloride 93.4 L Carbon Dioxide BUN Glucose 180 H POC Glucose 251 H 245 H Hemoglobin A1c Lactic Acid Calcium 7.9 L D Phosphorus Magnesium Total Bilirubin Direct Bilirubin AST Total Creatine Kinase 7857 H CK-MB (CK-2) 34.3 H C-Reactive Protein Total Protein Albumin 04/10/18 04/10/18 04/10/18 10:37 12:44 17:31 WBC Hct MCHC RDW Plt Count Lymph % (Auto) O'Brien % (Auto) Lymph # O'Brien # Seg Neutrophils % Seg Neutrophils # POC ABG pH POC ABG pCO2 45.6 H POC ABG pO2 374 H Sodium Potassium Chloride Carbon Dioxide BUN Glucose POC Glucose 348 H Hemoglobin A1c Lactic Acid Calcium Phosphorus Magnesium Total Bilirubin Direct Bilirubin AST Total Creatine Kinase 9880 H CK-MB (CK-2) 30.0 H C-Reactive Protein Total Protein Albumin 04/10/18 04/11/18 04/11/18 23:36 03:52 04:28 WBC 12.2 H Hct MCHC RDW Plt Count 132 L Lymph % (Auto) O'Brien % (Auto) 10.2 H Lymph # O'Brien # 1.2 H Seg Neutrophils % 75.1 H Seg Neutrophils # 9.1 H POC ABG pH 7.495 H POC ABG pCO2 32.4 L POC ABG pO2 Sodium Potassium Chloride Carbon Dioxide BUN Glucose POC Glucose 148 H Hemoglobin A1c Lactic Acid Calcium Phosphorus Magnesium Total Bilirubin Direct Bilirubin AST Total Creatine Kinase CK-MB (CK-2) C-Reactive Protein Total Protein Albumin 04/11/18 04/11/18 04/11/18 04:28 04:28 05:22 WBC Hct MCHC RDW Plt Count Lymph % (Auto) O'Brien % (Auto) Lymph # O'Brien # Seg Neutrophils % Seg Neutrophils # POC ABG pH POC ABG pCO2 POC ABG pO2 Sodium 133 L Potassium 3.5 L Chloride 95.1 L Carbon Dioxide BUN 7 L Glucose 206 H POC Glucose 178 H Hemoglobin A1c 6.4 H Lactic Acid Calcium 7.7 L Phosphorus 1.80 L Magnesium 1.50 L Total Bilirubin 4.10 H Direct Bilirubin AST 168 H Total Creatine Kinase 9352 H CK-MB (CK-2) C-Reactive Protein Total Protein Albumin 3.4 L 04/11/18 04/11/18 04/11/18 11:28 13:43 17:30 WBC Hct MCHC RDW Plt Count Lymph % (Auto) O'Brien % (Auto) Lymph # O'Brien # Seg Neutrophils % Seg Neutrophils # POC ABG pH POC ABG pCO2 POC ABG pO2 Sodium Potassium Chloride Carbon Dioxide BUN Glucose POC Glucose 196 H 142 H Hemoglobin A1c Lactic Acid Calcium Phosphorus Magnesium Total Bilirubin Direct Bilirubin AST Total Creatine Kinase CK-MB (CK-2) C-Reactive Protein 7.20 H Total Protein Albumin 04/11/18 04/11/18 04/12/18 18:59 23:23 04:00 WBC Hct MCHC RDW Plt Count Lymph % (Auto) O'Brien % (Auto) Lymph # O'Brien # Seg Neutrophils % Seg Neutrophils # POC ABG pH 7.489 H POC ABG pCO2 34.5 L POC ABG pO2 Sodium Potassium 3.3 L Chloride Carbon Dioxide BUN 6 L Glucose 151 H POC Glucose 129 H Hemoglobin A1c Lactic Acid Calcium 7.3 L Phosphorus 2.00 L Magnesium Total Bilirubin 2.80 H Direct Bilirubin AST 121 H Total Creatine Kinase 5177 H CK-MB (CK-2) C-Reactive Protein Total Protein 5.9 L Albumin 3.1 L 04/12/18 04/12/18 04/12/18 04:00 04:04 05:21 WBC Hct 34.9 L MCHC 35 H RDW Plt Count 128 L Lymph % (Auto) O'Brien % (Auto) 10.6 H Lymph # O'Brien # 0.9 H Seg Neutrophils % Seg Neutrophils # POC ABG pH 7.454 H POC ABG pCO2 POC ABG pO2 Sodium Potassium Chloride Carbon Dioxide BUN Glucose POC Glucose 136 H Hemoglobin A1c Lactic Acid Calcium Phosphorus Magnesium Total Bilirubin Direct Bilirubin AST Total Creatine Kinase CK-MB (CK-2) C-Reactive Protein Total Protein Albumin 04/12/18 04/13/18 04/13/18 11:23 00:21 04:57 WBC Hct MCHC RDW Plt Count Lymph % (Auto) O'Brien % (Auto) Lymph # O'Brien # Seg Neutrophils % Seg Neutrophils # POC ABG pH POC ABG pCO2 34.7 L POC ABG pO2 125 H Sodium Potassium Chloride Carbon Dioxide BUN Glucose POC Glucose 166 H 143 H Hemoglobin A1c Lactic Acid Calcium Phosphorus Magnesium Total Bilirubin Direct Bilirubin AST Total Creatine Kinase CK-MB (CK-2) C-Reactive Protein Total Protein Albumin 04/13/18 04/13/18 04/13/18 05:02 05:02 12:16 WBC Hct MCHC RDW Plt Count Lymph % (Auto) O'Brien % (Auto) Lymph # O'Brien # Seg Neutrophils % Seg Neutrophils # POC ABG pH POC ABG pCO2 POC ABG pO2 Sodium Potassium Chloride Carbon Dioxide BUN Glucose POC Glucose 161 H 170 H Hemoglobin A1c Lactic Acid Calcium Phosphorus Magnesium Total Bilirubin Direct Bilirubin AST Total Creatine Kinase 3456 H CK-MB (CK-2) C-Reactive Protein Total Protein Albumin 04/13/18 04/13/18 04/14/18 18:52 23:09 04:35 WBC Hct MCHC RDW Plt Count Lymph % (Auto) O'Brien % (Auto) Lymph # O'Brien # Seg Neutrophils % Seg Neutrophils # POC ABG pH 7.467 H POC ABG pCO2 POC ABG pO2 Sodium Potassium Chloride Carbon Dioxide BUN Glucose POC Glucose 196 H 219 H Hemoglobin A1c Lactic Acid Calcium Phosphorus Magnesium Total Bilirubin Direct Bilirubin AST Total Creatine Kinase CK-MB (CK-2) C-Reactive Protein Total Protein Albumin 04/14/18 04/14/18 04/14/18 05:00 05:26 11:20 WBC Hct MCHC RDW Plt Count Lymph % (Auto) O'Brien % (Auto) Lymph # O'Brien # Seg Neutrophils % Seg Neutrophils # POC ABG pH POC ABG pCO2 POC ABG pO2 Sodium Potassium Chloride Carbon Dioxide BUN Glucose POC Glucose 249 H 260 H Hemoglobin A1c Lactic Acid Calcium Phosphorus Magnesium Total Bilirubin Direct Bilirubin AST Total Creatine Kinase 2247 H CK-MB (CK-2) C-Reactive Protein Total Protein Albumin 04/14/18 04/14/18 04/14/18 17:04 17:51 23:53 WBC Hct MCHC RDW Plt Count Lymph % (Auto) O'Brien % (Auto) Lymph # O'Brien # Seg Neutrophils % Seg Neutrophils # POC ABG pH POC ABG pCO2 POC ABG pO2 79 L Sodium Potassium Chloride Carbon Dioxide BUN Glucose POC Glucose 284 H 203 H Hemoglobin A1c Lactic Acid Calcium Phosphorus Magnesium Total Bilirubin Direct Bilirubin AST Total Creatine Kinase CK-MB (CK-2) C-Reactive Protein Total Protein Albumin 04/15/18 04/15/18 04/15/18 04:24 05:26 12:56 WBC Hct MCHC RDW Plt Count Lymph % (Auto) O'Brien % (Auto) Lymph # O'Brien # Seg Neutrophils % Seg Neutrophils # POC ABG pH POC ABG pCO2 45.4 H POC ABG pO2 78 L Sodium Potassium Chloride Carbon Dioxide BUN Glucose POC Glucose 194 H 200 H Hemoglobin A1c Lactic Acid Calcium Phosphorus Magnesium Total Bilirubin Direct Bilirubin AST Total Creatine Kinase CK-MB (CK-2) C-Reactive Protein Total Protein Albumin 04/15/18 04/15/18 04/16/18 17:46 23:57 05:08 WBC Hct MCHC RDW Plt Count Lymph % (Auto) O'Brien % (Auto) Lymph # O'Brien # Seg Neutrophils % Seg Neutrophils # POC ABG pH POC ABG pCO2 POC ABG pO2 Sodium Potassium Chloride Carbon Dioxide BUN Glucose POC Glucose 118 H 204 H 221 H Hemoglobin A1c Lactic Acid Calcium Phosphorus Magnesium Total Bilirubin Direct Bilirubin AST Total Creatine Kinase CK-MB (CK-2) C-Reactive Protein Total Protein Albumin 04/16/18 04/16/18 04/16/18 05:16 12:23 13:07 WBC Hct MCHC RDW Plt Count Lymph % (Auto) O'Brien % (Auto) Lymph # O'Brien # Seg Neutrophils % Seg Neutrophils # POC ABG pH 7.456 H POC ABG pCO2 46.7 H POC ABG pO2 Sodium Potassium Chloride Carbon Dioxide BUN Glucose POC Glucose 271 H Hemoglobin A1c Lactic Acid Calcium Phosphorus Magnesium Total Bilirubin Direct Bilirubin AST Total Creatine Kinase CK-MB (CK-2) C-Reactive Protein Total Protein Albumin 04/16/18 04/17/18 04/17/18 19:14 00:08 05:46 WBC Hct MCHC RDW Plt Count Lymph % (Auto) O'Brien % (Auto) Lymph # O'Brien # Seg Neutrophils % Seg Neutrophils # POC ABG pH POC ABG pCO2 POC ABG pO2 Sodium Potassium Chloride Carbon Dioxide BUN Glucose POC Glucose 221 H 238 H 274 H Hemoglobin A1c Lactic Acid Calcium Phosphorus Magnesium Total Bilirubin Direct Bilirubin AST Total Creatine Kinase CK-MB (CK-2) C-Reactive Protein Total Protein Albumin 04/17/18 04/17/18 04/17/18 13:50 13:59 14:20 WBC Hct MCHC RDW Plt Count Lymph % (Auto) O'Brien % (Auto) Lymph # O'Brien # Seg Neutrophils % Seg Neutrophils # POC ABG pH 7.474 H POC ABG pCO2 POC ABG pO2 Sodium Potassium 3.4 L Chloride 93.6 L Carbon Dioxide 33 H BUN Glucose 305 H POC Glucose 315 H Hemoglobin A1c Lactic Acid Calcium Phosphorus Magnesium Total Bilirubin Direct Bilirubin AST Total Creatine Kinase CK-MB (CK-2) C-Reactive Protein Total Protein Albumin 04/17/18 04/17/18 04/18/18 17:04 23:26 04:20 WBC Hct MCHC RDW Plt Count Lymph % (Auto) O'Brien % (Auto) Lymph # O'Brien # Seg Neutrophils % Seg Neutrophils # POC ABG pH 7.473 H POC ABG pCO2 POC ABG pO2 Sodium Potassium Chloride Carbon Dioxide BUN Glucose POC Glucose 280 H 284 H Hemoglobin A1c Lactic Acid Calcium Phosphorus Magnesium Total Bilirubin Direct Bilirubin AST Total Creatine Kinase CK-MB (CK-2) C-Reactive Protein Total Protein Albumin 04/18/18 04/18/18 04/18/18 05:14 08:32 11:00 WBC Hct MCHC RDW Plt Count Lymph % (Auto) O'Brien % (Auto) Lymph # O'Brien # Seg Neutrophils % Seg Neutrophils # POC ABG pH POC ABG pCO2 POC ABG pO2 Sodium Potassium Chloride Carbon Dioxide BUN Glucose POC Glucose 286 H 296 H Hemoglobin A1c Lactic Acid Calcium Phosphorus Magnesium Total Bilirubin Direct Bilirubin 0.3 H AST 87 H Total Creatine Kinase CK-MB (CK-2) C-Reactive Protein Total Protein Albumin 3.7 L 04/18/18 04/18/18 04/19/18 12:03 18:15 00:08 WBC Hct MCHC RDW Plt Count Lymph % (Auto) O'Brien % (Auto) Lymph # O'Brien # Seg Neutrophils % Seg Neutrophils # POC ABG pH POC ABG pCO2 POC ABG pO2 Sodium Potassium Chloride Carbon Dioxide BUN Glucose POC Glucose 353 H 327 H 331 H Hemoglobin A1c Lactic Acid Calcium Phosphorus Magnesium Total Bilirubin Direct Bilirubin AST Total Creatine Kinase CK-MB (CK-2) C-Reactive Protein Total Protein Albumin 04/19/18 04/19/18 04/19/18 04:46 05:26 11:48 WBC Hct MCHC RDW Plt Count Lymph % (Auto) O'Brien % (Auto) Lymph # O'Brien # Seg Neutrophils % Seg Neutrophils # POC ABG pH 7.497 H POC ABG pCO2 POC ABG pO2 119 H Sodium Potassium Chloride Carbon Dioxide BUN Glucose POC Glucose 323 H 266 H Hemoglobin A1c Lactic Acid Calcium Phosphorus Magnesium Total Bilirubin Direct Bilirubin AST Total Creatine Kinase CK-MB (CK-2) C-Reactive Protein Total Protein Albumin 04/19/18 04/19/18 04/20/18 17:52 23:37 00:07 WBC Hct MCHC RDW Plt Count Lymph % (Auto) O'Brien % (Auto) Lymph # O'Brien # Seg Neutrophils % Seg Neutrophils # POC ABG pH POC ABG pCO2 POC ABG pO2 Sodium Potassium Chloride Carbon Dioxide BUN Glucose POC Glucose 284 H 285 H 312 H Hemoglobin A1c Lactic Acid Calcium Phosphorus Magnesium Total Bilirubin Direct Bilirubin AST Total Creatine Kinase CK-MB (CK-2) C-Reactive Protein Total Protein Albumin 04/20/18 04/20/18 04/20/18 04:09 04:09 04:37 WBC Hct 34.7 L MCHC 35 H RDW Plt Count Lymph % (Auto) O'Brien % (Auto) Lymph # O'Brien # Seg Neutrophils % Seg Neutrophils # POC ABG pH POC ABG pCO2 POC ABG pO2 Sodium Potassium 3.5 L Chloride 95.7 L Carbon Dioxide 34 H BUN Glucose 286 H POC Glucose 267 H Hemoglobin A1c Lactic Acid Calcium Phosphorus Magnesium Total Bilirubin Direct Bilirubin AST Total Creatine Kinase CK-MB (CK-2) C-Reactive Protein Total Protein Albumin 04/20/18 04/20/18 04/20/18 12:32 17:54 21:07 WBC Hct MCHC RDW Plt Count Lymph % (Auto) O'Brien % (Auto) Lymph # O'Brien # Seg Neutrophils % Seg Neutrophils # POC ABG pH POC ABG pCO2 POC ABG pO2 Sodium Potassium Chloride Carbon Dioxide BUN Glucose POC Glucose 220 H 298 H 187 H Hemoglobin A1c Lactic Acid Calcium Phosphorus Magnesium Total Bilirubin Direct Bilirubin AST Total Creatine Kinase CK-MB (CK-2) C-Reactive Protein Total Protein Albumin 04/21/18 04/21/18 04/21/18 00:04 05:00 05:41 WBC Hct MCHC RDW Plt Count Lymph % (Auto) O'Brien % (Auto) Lymph # O'Brien # Seg Neutrophils % Seg Neutrophils # POC ABG pH POC ABG pCO2 POC ABG pO2 Sodium Potassium Chloride 95.2 L Carbon Dioxide 34 H BUN Glucose 179 H POC Glucose 183 H 166 H Hemoglobin A1c Lactic Acid Calcium Phosphorus Magnesium Total Bilirubin Direct Bilirubin AST Total Creatine Kinase CK-MB (CK-2) C-Reactive Protein Total Protein Albumin 04/21/18 04/21/18 04/21/18 11:55 18:09 23:36 WBC Hct MCHC RDW Plt Count Lymph % (Auto) O'Brien % (Auto) Lymph # O'Brien # Seg Neutrophils % Seg Neutrophils # POC ABG pH POC ABG pCO2 POC ABG pO2 Sodium Potassium Chloride Carbon Dioxide BUN Glucose POC Glucose 219 H 247 H 229 H Hemoglobin A1c Lactic Acid Calcium Phosphorus Magnesium Total Bilirubin Direct Bilirubin AST Total Creatine Kinase CK-MB (CK-2) C-Reactive Protein Total Protein Albumin 04/22/18 04/22/18 04/22/18 04:07 04:07 05:08 WBC Hct MCHC 35 H RDW 15.3 H Plt Count Lymph % (Auto) O'Brien % (Auto) Lymph # O'Brien # Seg Neutrophils % Seg Neutrophils # POC ABG pH POC ABG pCO2 POC ABG pO2 Sodium Potassium Chloride 97.4 L Carbon Dioxide 31 H BUN Glucose 177 H POC Glucose 200 H Hemoglobin A1c Lactic Acid Calcium Phosphorus Magnesium Total Bilirubin Direct Bilirubin AST Total Creatine Kinase CK-MB (CK-2) C-Reactive Protein Total Protein Albumin 04/22/18 04/22/18 04/23/18 12:15 18:04 04:55 WBC Hct MCHC RDW Plt Count Lymph % (Auto) O'Brien % (Auto) Lymph # O'Brien # Seg Neutrophils % Seg Neutrophils # POC ABG pH POC ABG pCO2 POC ABG pO2 Sodium Potassium Chloride Carbon Dioxide BUN 23 H Glucose 274 H POC Glucose 189 H 191 H Hemoglobin A1c Lactic Acid Calcium Phosphorus Magnesium Total Bilirubin Direct Bilirubin AST Total Creatine Kinase CK-MB (CK-2) C-Reactive Protein Total Protein Albumin 04/23/18 04/23/18 04/23/18 05:21 11:06 17:46 WBC Hct MCHC RDW Plt Count Lymph % (Auto) O'Brien % (Auto) Lymph # O'Brien # Seg Neutrophils % Seg Neutrophils # POC ABG pH POC ABG pCO2 POC ABG pO2 Sodium Potassium Chloride Carbon Dioxide BUN Glucose POC Glucose 143 H 176 H 142 H Hemoglobin A1c Lactic Acid Calcium Phosphorus Magnesium Total Bilirubin Direct Bilirubin AST Total Creatine Kinase CK-MB (CK-2) C-Reactive Protein Total Protein Albumin 04/23/18 04/24/18 23:35 06:02 WBC Hct MCHC RDW Plt Count Lymph % (Auto) O'Brien % (Auto) Lymph # O'Brien # Seg Neutrophils % Seg Neutrophils # POC ABG pH POC ABG pCO2 POC ABG pO2 Sodium Potassium Chloride Carbon Dioxide BUN Glucose POC Glucose 127 H 175 H Hemoglobin A1c Lactic Acid Calcium Phosphorus Magnesium Total Bilirubin Direct Bilirubin AST Total Creatine Kinase CK-MB (CK-2) C-Reactive Protein Total Protein Albumin Allied health notes reviewed: RT
[2018-04-24] MEDS: KEPPRA PO SCH (09:55)
[2018-04-24] MEDS: NORVASC FEEDTUBE SCH (09:56)
[2018-04-24] MEDS: PEPCID PO SCH (09:57)
[2018-04-24] MEDS: LOVENOX SUB-Q SCH (09:57)
[2018-04-24] MEDS: LANTUS SUB-Q SCH (09:57)
[2018-04-24] MEDS: TRANSDERM-SCOP TD SCH (10:09)
[2018-04-24] MEDS: SODIUM CHLORIDE FLUSH SYRINGE 10 ML IV SCH (10:10)
[2018-04-24] MEDS: PROVIGIL PO SCH (10:10)
--- NOTE | 2018-04-24 12:07 | Consultation ---
History of Present Illness Consult date: 04/24/18 Requesting physician: DEJAN ABREU Reason for Consult: hypoglycemic encephalopathy History of present illness: 78 year old male with history iof insulin dependent diabetes, hypertension and coronary artery disease, presented on 04/09/18, found down at home. History is per the pt.'s son. Apparently the pt.'s brother spoke to him on the phone around noon and felt that his speech was a bit slurred. Family came over at 7 PM and found him in his chair, unresponsive and cold to the touch, breathing shallowly. Soup was spilled in the kitchen. The son feels that from the appearance of the kitchen, the pt. most likely took his insulin before eating, began to feel shakey and went to sit down without a meal. When EMS arrived his glucose was undetectable, D-50 was guven and he began to wake up. He was brought to the ER where he had several seizures. Body temperature was 93 Degrees. Because of the seizures the pt. was intubated for airway protection. He has not been able to come off the respirator and remains obtunded. CT and MRI the week of admission were unremarkable for acute changes. EEG revealed fro ntal slowing. The patient has been on Keppra since admission. 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 denies: smoking (not for many years), alcohol abuse, prescription drug abuse, IV drug use Family history: diabetes (sister, brother), hypertension (3 sisters, several brothers), other (no epilepsy ). denies: stroke Medications and Allergies Allergies Allergy/AdvReac Type Severity Reaction Status Date / Time No Known Allergies Allergy Unverified 05/04/15 21:26 Home Medications Medication Instructions Recorded Confirmed Last Taken Type Gabapentin [Neurontin] 100 mg PO HS 04/10/18 04/10/18 Unknown History Insulin Aspart Prot/Aspart(Nf) 6 - 8 units SUB-Q QAM 04/10/18 04/10/18 Unknown History [Novolog Mix 70/30] Insulin Aspart Prot/Aspart(Nf) 28 units SUB-Q QPM 04/10/18 04/10/18 Unknown History [Novolog Mix 70/30] Lisinopril [Zestril] 20 mg PO QDAY 04/10/18 04/10/18 Unknown History Metoprolol Tartrate 25 mg PO BID 04/10/18 04/10/18 Unknown History Pravastatin [Pravachol] 40 mg PO QHS 04/10/18 04/10/18 Unknown History Tamsulosin HCl [Flomax] 0.4 mg PO HS 04/10/18 04/10/18 Unknown History amLODIPine [Norvasc] 10 mg PO DAILY 04/10/18 04/10/18 Unknown History traMADol [Ultram] 50 mg PO QDAY PRN 04/10/18 04/10/18 Unknown History Active Meds: Active Medications Acetaminophen (Tylenol) 650 mg PO Q4H PRN PRN Reason: Fever >101 Albuterol/Ipratropium (Duoneb *Not For Prn Use*) 1 ampul IH TIDRT [facility] Last Admin: 04/24/18 08:33 Dose: 1 ampul Documented by: Amlodipine Besylate (Norvasc) 10 mg FEEDTUBE QDAY [facility] Last Admin: 04/24/18 09:56 Dose: 10 mg Documented by: Lipase/Protease/Amylase (Pancremaria elena Dr 10,500 Unit) 1 each FEEDTUBE PRN PRN PRN Reason: For Clogged Feeding Tube Enoxaparin Sodium (Lovenox) 40 mg SUB-Q QDAY@1000 [facility] Last Admin: 04/24/18 09:57 Dose: 40 mg Documented by: Famotidine (Pepcid) 20 mg PO BID [facility] Last Admin: 04/24/18 09:57 Dose: 20 mg Documented by: Fentanyl (Sublimaze) 50 mcg IV Q10MIN PRN PRN Reason: ANALGESIA Hydralazine HCl (Apresoline) 10 mg IV Q6H PRN PRN Reason: SBP > 170 Last Admin: 04/21/18 08:48 Dose: 10 mg Documented by: Hydralazine HCl (Apresoline) 10 mg PO Q8HR [facility] Hydrophilic Ointment (Vaseline Lip Therapy) 1 applic TP Q2HR PRN PRN Reason: Dry Lips Fentanyl Citrate (Fentanyl Drip Premix) 2,000 mcg in 100 mls @ 4.73 mls/hr IV TITR [facility]; Protocol Last Admin: 04/14/18 11:33 Dose: 0.51 mcg/kg/hr, 2.42 mls/hr Documented by: Insulin Glargine (Lantus) 20 units SUB-Q DAILY [facility] Last Admin: 04/24/18 09:57 Dose: 20 units Documented by: Insulin Human Lispro (Humalog) 0 unit SUB-Q Q6HR [facility]; Protocol Last Admin: 04/24/18 06:55 Dose: 2 unit Documented by: Insulin Human Regular (Humulin R) 5 units SUB-Q TID [facility] Last Admin: 04/24/18 08:00 Dose: 5 units Documented by: Levetiracetam (Keppra) 750 mg PO BID [facility] Last Admin: 04/24/18 09:55 Dose: 750 mg Documented by: Modafinil (Provigil) 200 mg PO QAM [facility] Last Admin: 04/24/18 10:10 Dose: 200 mg Documented by: Multi-Ingred Cream/Lotion/Oil/Oint (Artificial Tears Ophth Oint) 1 applic OU Q4HR PRN PRN Reason: Dry Eye(s) Ondansetron HCl (Zofran) 4 mg IV Q8H PRN PRN Reason: Nausea And Vomiting Last Admin: 04/23/18 14:48 Dose: 4 mg Documented by: Scopolamine (Transderm-Scop) 1 each TD Q3D [facility] Last Admin: 04/24/18 10:09 Dose: 1 each Documented by: Simple Syrup (Simple Syrup) 15 ml FEEDTUBE PRN PRN PRN Reason: Hypoglycemia Simple Syrup (Simple Syrup) 30 ml FEEDTUBE PRN PRN PRN Reason: Hypoglycemia Sodium Bicarbonate (Sodium Bicarbonate) 325 mg FEEDTUBE PRN PRN PRN Reason: For Clogged Feeding Tube Sodium Chloride (Sodium Chloride Flush Syringe 10 Ml) 10 ml IV BID [facility] Last Admin: 04/24/18 10:10 Dose: 10 ml Documented by: Sodium Chloride (Sodium Chloride Flush Syringe 10 Ml) 10 ml IV PRN PRN PRN Reason: LINE FLUSH Physical Examination - Vital Signs Vital Signs: Vital Signs Pulse Ox 92 04/09/18 22:48 General - eyes closed on the ventilator. Does not follow commands board catcher - eyes are midline. face symmetric Motor - moves all extremities, less movement in the rt. arm and hand. Reflexes - diminished throughout. Neg. babinski. Sensory - withdraws to pain all 4 limbs. - Assessment Assessment Interval: Baseline - Level of Consciousness 1a. Level of Consciousness: resp stimuli/obtunded - LOC Questions 1b. LOC Questions: answers no questions correctly - LOC Command 1c. LOC Commands: performs no tasks correctly - Best Gaze 2. Best Gaze: normal - Visual 3. Visual: no visual loss - Facial Palsy 4. Facial Palsy: normal symmetrical movement - Motor Arm 5b. Motor Arm Right: no drift - Motor Leg 6a. Motor Leg Left: no drift - Limb Ataxia 7. Limb Ataxia: absent - Sensory 8. Sensory: no response/quadraplegic - Best Language 9. Best Language: coma/unresponsive - Dysarthria 10. Dysarthria: intubated or other barrier - Extinction and Inattention 11. Extinction/Inattention: no abnormality Results - Laboratory Findings CBC and BMP: 04/22/18 04:07 04/23/18 04:55 Abnormal Lab Findings: Abnormal Labs 04/09/18 04/09/18 04/09/18 23:16 23:16 23:16 WBC 13.6 H Hct MCHC RDW Plt Count Lymph % (Auto) 9.4 L [place] % (Auto) Lymph # [place] # Seg Neutrophils % 87.3 H Seg Neutrophils # 11.9 H POC ABG pH POC ABG pCO2 POC ABG pO2 Sodium 132 L Potassium Chloride 92.7 L Carbon Dioxide BUN Glucose 143 H POC Glucose Hemoglobin A1c Lactic Acid 2.10 H* Calcium Phosphorus Magnesium Total Bilirubin 2.20 H Direct Bilirubin AST 107 H Total Creatine Kinase CK-MB (CK-2) C-Reactive Protein Total Protein Albumin 04/10/18 04/10/18 04/10/18 00:38 00:55 01:13 WBC Hct MCHC RDW Plt Count Lymph % (Auto) [place] % (Auto) Lymph # [place] # Seg Neutrophils % Seg Neutrophils # POC ABG pH POC ABG pCO2 POC ABG pO2 Sodium Potassium Chloride Carbon Dioxide BUN Glucose POC Glucose 117 H 121 H Hemoglobin A1c Lactic Acid 2.10 H* Calcium Phosphorus Magnesium Total Bilirubin Direct Bilirubin AST Total Creatine Kinase CK-MB (CK-2) C-Reactive Protein Total Protein Albumin 04/10/18 04/10/18 04/10/18 02:10 03:51 04:07 WBC 14.0 H Hct MCHC RDW Plt Count Lymph % (Auto) 7.5 L [place] % (Auto) Lymph # 1.1 L [place] # 1.0 H Seg Neutrophils % 84.9 H Seg Neutrophils # 11.8 H POC ABG pH POC ABG pCO2 POC ABG pO2 Sodium Potassium Chloride Carbon Dioxide BUN Glucose POC Glucose 153 H 158 H Hemoglobin A1c Lactic Acid Calcium Phosphorus Magnesium Total Bilirubin Direct Bilirubin AST Total Creatine Kinase CK-MB (CK-2) C-Reactive Protein Total Protein Albumin 04/10/18 04/10/18 04/10/18 04:07 06:56 09:48 WBC Hct MCHC RDW Plt Count Lymph % (Auto) [place] % (Auto) Lymph # [place] # Seg Neutrophils % Seg Neutrophils # POC ABG pH POC ABG pCO2 POC ABG pO2 Sodium 130 L Potassium Chloride 93.4 L Carbon Dioxide BUN Glucose 180 H POC Glucose 251 H 245 H Hemoglobin A1c Lactic Acid Calcium 7.9 L D Phosphorus Magnesium Total Bilirubin Direct Bilirubin AST Total Creatine Kinase 7857 H CK-MB (CK-2) 34.3 H C-Reactive Protein Total Protein Albumin 04/10/18 04/10/18 04/10/18 10:37 12:44 17:31 WBC Hct MCHC RDW Plt Count Lymph % (Auto) [place] % (Auto) Lymph # [place] # Seg Neutrophils % Seg Neutrophils # POC ABG pH POC ABG pCO2 45.6 H POC ABG pO2 374 H Sodium Potassium Chloride Carbon Dioxide BUN Glucose POC Glucose 348 H Hemoglobin A1c Lactic Acid Calcium Phosphorus Magnesium Total Bilirubin Direct Bilirubin AST Total Creatine Kinase 9880 H CK-MB (CK-2) 30.0 H C-Reactive Protein Total Protein Albumin 04/10/18 04/11/18 04/11/18 23:36 03:52 04:28 WBC 12.2 H Hct MCHC RDW Plt Count 132 L Lymph % (Auto) [place] % (Auto) 10.2 H Lymph # [place] # 1.2 H Seg Neutrophils % 75.1 H Seg Neutrophils # 9.1 H POC ABG pH 7.495 H POC ABG pCO2 32.4 L POC ABG pO2 Sodium Potassium Chloride Carbon Dioxide BUN Glucose POC Glucose 148 H Hemoglobin A1c Lactic Acid Calcium Phosphorus Magnesium Total Bilirubin Direct Bilirubin AST Total Creatine Kinase CK-MB (CK-2) C-Reactive Protein Total Protein Albumin 04/11/18 04/11/18 04/11/18 04:28 04:28 05:22 WBC Hct MCHC RDW Plt Count Lymph % (Auto) [place] % (Auto) Lymph # [place] # Seg Neutrophils % Seg Neutrophils # POC ABG pH POC ABG pCO2 POC ABG pO2 Sodium 133 L Potassium 3.5 L Chloride 95.1 L Carbon Dioxide BUN 7 L Glucose 206 H POC Glucose 178 H Hemoglobin A1c 6.4 H Lactic Acid Calcium 7.7 L Phosphorus 1.80 L Magnesium 1.50 L Total Bilirubin 4.10 H Direct Bilirubin AST 168 H Total Creatine Kinase 9352 H CK-MB (CK-2) C-Reactive Protein Total Protein Albumin 3.4 L 04/11/18 04/11/18 04/11/18 11:28 13:43 17:30 WBC Hct MCHC RDW Plt Count Lymph % (Auto) [place] % (Auto) Lymph # [place] # Seg Neutrophils % Seg Neutrophils # POC ABG pH POC ABG pCO2 POC ABG pO2 Sodium Potassium Chloride Carbon Dioxide BUN Glucose POC Glucose 196 H 142 H Hemoglobin A1c Lactic Acid Calcium Phosphorus Magnesium Total Bilirubin Direct Bilirubin AST Total Creatine Kinase CK-MB (CK-2) C-Reactive Protein 7.20 H Total Protein Albumin 04/11/18 04/11/18 04/12/18 18:59 23:23 04:00 WBC Hct MCHC RDW Plt Count Lymph % (Auto) [place] % (Auto) Lymph # [place] # Seg Neutrophils % Seg Neutrophils # POC ABG pH 7.489 H POC ABG pCO2 34.5 L POC ABG pO2 Sodium Potassium 3.3 L Chloride Carbon Dioxide BUN 6 L Glucose 151 H POC Glucose 129 H Hemoglobin A1c Lactic Acid Calcium 7.3 L Phosphorus 2.00 L Magnesium Total Bilirubin 2.80 H Direct Bilirubin AST 121 H Total Creatine Kinase 5177 H CK-MB (CK-2) C-Reactive Protein Total Protein 5.9 L Albumin 3.1 L 04/12/18 04/12/18 04/12/18 04:00 04:04 05:21 WBC Hct 34.9 L MCHC 35 H RDW Plt Count 128 L Lymph % (Auto) [place] % (Auto) 10.6 H Lymph # [place] # 0.9 H Seg Neutrophils % Seg Neutrophils # POC ABG pH 7.454 H POC ABG pCO2 POC ABG pO2 Sodium Potassium Chloride Carbon Dioxide BUN Glucose POC Glucose 136 H Hemoglobin A1c Lactic Acid Calcium Phosphorus Magnesium Total Bilirubin Direct Bilirubin AST Total Creatine Kinase CK-MB (CK-2) C-Reactive Protein Total Protein Albumin 04/12/18 04/13/18 04/13/18 11:23 00:21 04:57 WBC Hct MCHC RDW Plt Count Lymph % (Auto) [place] % (Auto) Lymph # [place] # Seg Neutrophils % Seg Neutrophils # POC ABG pH POC ABG pCO2 34.7 L POC ABG pO2 125 H Sodium Potassium Chloride Carbon Dioxide BUN Glucose POC Glucose 166 H 143 H Hemoglobin A1c Lactic Acid Calcium Phosphorus Magnesium Total Bilirubin Direct Bilirubin AST Total Creatine Kinase CK-MB (CK-2) C-Reactive Protein Total Protein Albumin 04/13/18 04/13/18 04/13/18 05:02 05:02 12:16 WBC Hct MCHC RDW Plt Count Lymph % (Auto) [place] % (Auto) Lymph # [place] # Seg Neutrophils % Seg Neutrophils # POC ABG pH POC ABG pCO2 POC ABG pO2 Sodium Potassium Chloride Carbon Dioxide BUN Glucose POC Glucose 161 H 170 H Hemoglobin A1c Lactic Acid Calcium Phosphorus Magnesium Total Bilirubin Direct Bilirubin AST Total Creatine Kinase 3456 H CK-MB (CK-2) C-Reactive Protein Total Protein Albumin 04/13/18 04/13/18 04/14/18 18:52 23:09 04:35 WBC Hct MCHC RDW Plt Count Lymph % (Auto) [place] % (Auto) Lymph # [place] # Seg Neutrophils % Seg Neutrophils # POC ABG pH 7.467 H POC ABG pCO2 POC ABG pO2 Sodium Potassium Chloride Carbon Dioxide BUN Glucose POC Glucose 196 H 219 H Hemoglobin A1c Lactic Acid Calcium Phosphorus Magnesium Total Bilirubin Direct Bilirubin AST Total Creatine Kinase CK-MB (CK-2) C-Reactive Protein Total Protein Albumin 04/14/18 04/14/18 04/14/18 05:00 05:26 11:20 WBC Hct MCHC RDW Plt Count Lymph % (Auto) [place] % (Auto) Lymph # [place] # Seg Neutrophils % Seg Neutrophils # POC ABG pH POC ABG pCO2 POC ABG pO2 Sodium Potassium Chloride Carbon Dioxide BUN Glucose POC Glucose 249 H 260 H Hemoglobin A1c Lactic Acid Calcium Phosphorus Magnesium Total Bilirubin Direct Bilirubin AST Total Creatine Kinase 2247 H CK-MB (CK-2) C-Reactive Protein Total Protein Albumin 04/14/18 04/14/18 04/14/18 17:04 17:51 23:53 WBC Hct MCHC RDW Plt Count Lymph % (Auto) [place] % (Auto) Lymph # [place] # Seg Neutrophils % Seg Neutrophils # POC ABG pH POC ABG pCO2 POC ABG pO2 79 L Sodium Potassium Chloride Carbon Dioxide BUN Glucose POC Glucose 284 H 203 H Hemoglobin A1c Lactic Acid Calcium Phosphorus Magnesium Total Bilirubin Direct Bilirubin AST Total Creatine Kinase CK-MB (CK-2) C-Reactive Protein Total Protein Albumin 04/15/18 04/15/18 04/15/18 04:24 05:26 12:56 WBC Hct MCHC RDW Plt Count Lymph % (Auto) [place] % (Auto) Lymph # [place] # Seg Neutrophils % Seg Neutrophils # POC ABG pH POC ABG pCO2 45.4 H POC ABG pO2 78 L Sodium Potassium Chloride Carbon Dioxide BUN Glucose POC Glucose 194 H 200 H Hemoglobin A1c Lactic Acid Calcium Phosphorus Magnesium Total Bilirubin Direct Bilirubin AST Total Creatine Kinase CK-MB (CK-2) C-Reactive Protein Total Protein Albumin 04/15/18 04/15/18 04/16/18 17:46 23:57 05:08 WBC Hct MCHC RDW Plt Count Lymph % (Auto) [place] % (Auto) Lymph # [place] # Seg Neutrophils % Seg Neutrophils # POC ABG pH POC ABG pCO2 POC ABG pO2 Sodium Potassium Chloride Carbon Dioxide BUN Glucose POC Glucose 118 H 204 H 221 H Hemoglobin A1c Lactic Acid Calcium Phosphorus Magnesium Total Bilirubin Direct Bilirubin AST Total Creatine Kinase CK-MB (CK-2) C-Reactive Protein Total Protein Albumin 04/16/18 04/16/18 04/16/18 05:16 12:23 13:07 WBC Hct MCHC RDW Plt Count Lymph % (Auto) [place] % (Auto) Lymph # [place] # Seg Neutrophils % Seg Neutrophils # POC ABG pH 7.456 H POC ABG pCO2 46.7 H POC ABG pO2 Sodium Potassium Chloride Carbon Dioxide BUN Glucose POC Glucose 271 H Hemoglobin A1c Lactic Acid Calcium Phosphorus Magnesium Total Bilirubin Direct Bilirubin AST Total Creatine Kinase CK-MB (CK-2) C-Reactive Protein Total Protein Albumin 04/16/18 04/17/18 04/17/18 19:14 00:08 05:46 WBC Hct MCHC RDW Plt Count Lymph % (Auto) [place] % (Auto) Lymph # [place] # Seg Neutrophils % Seg Neutrophils # POC ABG pH POC ABG pCO2 POC ABG pO2 Sodium Potassium Chloride Carbon Dioxide BUN Glucose POC Glucose 221 H 238 H 274 H Hemoglobin A1c Lactic Acid Calcium Phosphorus Magnesium Total Bilirubin Direct Bilirubin AST Total Creatine Kinase CK-MB (CK-2) C-Reactive Protein Total Protein Albumin 04/17/18 04/17/18 04/17/18 13:50 13:59 14:20 WBC Hct MCHC RDW Plt Count Lymph % (Auto) [place] % (Auto) Lymph # [place] # Seg Neutrophils % Seg Neutrophils # POC ABG pH 7.474 H POC ABG pCO2 POC ABG pO2 Sodium Potassium 3.4 L Chloride 93.6 L Carbon Dioxide 33 H BUN Glucose 305 H POC Glucose 315 H Hemoglobin A1c Lactic Acid Calcium Phosphorus Magnesium Total Bilirubin Direct Bilirubin AST Total Creatine Kinase CK-MB (CK-2) C-Reactive Protein Total Protein Albumin 04/17/18 04/17/18 04/18/18 17:04 23:26 04:20 WBC Hct MCHC RDW Plt Count Lymph % (Auto) [place] % (Auto) Lymph # [place] # Seg Neutrophils % Seg Neutrophils # POC ABG pH 7.473 H POC ABG pCO2 POC ABG pO2 Sodium Potassium Chloride Carbon Dioxide BUN Glucose POC Glucose 280 H 284 H Hemoglobin A1c Lactic Acid Calcium Phosphorus Magnesium Total Bilirubin Direct Bilirubin AST Total Creatine Kinase CK-MB (CK-2) C-Reactive Protein Total Protein Albumin 04/18/18 04/18/18 04/18/18 05:14 08:32 11:00 WBC Hct MCHC RDW Plt Count Lymph % (Auto) [place] % (Auto) Lymph # [place] # Seg Neutrophils % Seg Neutrophils # POC ABG pH POC ABG pCO2 POC ABG pO2 Sodium Potassium Chloride Carbon Dioxide BUN Glucose POC Glucose 286 H 296 H Hemoglobin A1c Lactic Acid Calcium Phosphorus Magnesium Total Bilirubin Direct Bilirubin 0.3 H AST 87 H Total Creatine Kinase CK-MB (CK-2) C-Reactive Protein Total Protein Albumin 3.7 L 04/18/18 04/18/18 04/19/18 12:03 18:15 00:08 WBC Hct MCHC RDW Plt Count Lymph % (Auto) [place] % (Auto) Lymph # [place] # Seg Neutrophils % Seg Neutrophils # POC ABG pH POC ABG pCO2 POC ABG pO2 Sodium Potassium Chloride Carbon Dioxide BUN Glucose POC Glucose 353 H 327 H 331 H Hemoglobin A1c Lactic Acid Calcium Phosphorus Magnesium Total Bilirubin Direct Bilirubin AST Total Creatine Kinase CK-MB (CK-2) C-Reactive Protein Total Protein Albumin 04/19/18 04/19/18 04/19/18 04:46 05:26 11:48 WBC Hct MCHC RDW Plt Count Lymph % (Auto) [place] % (Auto) Lymph # [place] # Seg Neutrophils % Seg Neutrophils # POC ABG pH 7.497 H POC ABG pCO2 POC ABG pO2 119 H Sodium Potassium Chloride Carbon Dioxide BUN Glucose POC Glucose 323 H 266 H Hemoglobin A1c Lactic Acid Calcium Phosphorus Magnesium Total Bilirubin Direct Bilirubin AST Total Creatine Kinase CK-MB (CK-2) C-Reactive Protein Total Protein Albumin 04/19/18 04/19/18 04/20/18 17:52 23:37 00:07 WBC Hct MCHC RDW Plt Count Lymph % (Auto) [place] % (Auto) Lymph # [place] # Seg Neutrophils % Seg Neutrophils # POC ABG pH POC ABG pCO2 POC ABG pO2 Sodium Potassium Chloride Carbon Dioxide BUN Glucose POC Glucose 284 H 285 H 312 H Hemoglobin A1c Lactic Acid Calcium Phosphorus Magnesium Total Bilirubin Direct Bilirubin AST Total Creatine Kinase CK-MB (CK-2) C-Reactive Protein Total Protein Albumin 04/20/18 04/20/18 04/20/18 04:09 04:09 04:37 WBC Hct 34.7 L MCHC 35 H RDW Plt Count Lymph % (Auto) [place] % (Auto) Lymph # [place] # Seg Neutrophils % Seg Neutrophils # POC ABG pH POC ABG pCO2 POC ABG pO2 Sodium Potassium 3.5 L Chloride 95.7 L Carbon Dioxide 34 H BUN Glucose 286 H POC Glucose 267 H Hemoglobin A1c Lactic Acid Calcium Phosphorus Magnesium Total Bilirubin Direct Bilirubin AST Total Creatine Kinase CK-MB (CK-2) C-Reactive Protein Total Protein Albumin 04/20/18 04/20/18 04/20/18 12:32 17:54 21:07 WBC Hct MCHC RDW Plt Count Lymph % (Auto) [place] % (Auto) Lymph # [place] # Seg Neutrophils % Seg Neutrophils # POC ABG pH POC ABG pCO2 POC ABG pO2 Sodium Potassium Chloride Carbon Dioxide BUN Glucose POC Glucose 220 H 298 H 187 H Hemoglobin A1c Lactic Acid Calcium Phosphorus Magnesium Total Bilirubin Direct Bilirubin AST Total Creatine Kinase CK-MB (CK-2) C-Reactive Protein Total Protein Albumin 04/21/18 04/21/18 04/21/18 00:04 05:00 05:41 WBC Hct MCHC RDW Plt Count Lymph % (Auto) [place] % (Auto) Lymph # [place] # Seg Neutrophils % Seg Neutrophils # POC ABG pH POC ABG pCO2 POC ABG pO2 Sodium Potassium Chloride 95.2 L Carbon Dioxide 34 H BUN Glucose 179 H POC Glucose 183 H 166 H Hemoglobin A1c Lactic Acid Calcium Phosphorus Magnesium Total Bilirubin Direct Bilirubin AST Total Creatine Kinase CK-MB (CK-2) C-Reactive Protein Total Protein Albumin 04/21/18 04/21/18 04/21/18 11:55 18:09 23:36 WBC Hct MCHC RDW Plt Count Lymph % (Auto) [place] % (Auto) Lymph # [place] # Seg Neutrophils % Seg Neutrophils # POC ABG pH POC ABG pCO2 POC ABG pO2 Sodium Potassium Chloride Carbon Dioxide BUN Glucose POC Glucose 219 H 247 H 229 H Hemoglobin A1c Lactic Acid Calcium Phosphorus Magnesium Total Bilirubin Direct Bilirubin AST Total Creatine Kinase CK-MB (CK-2) C-Reactive Protein Total Protein Albumin 04/22/18 04/22/18 04/22/18 04:07 04:07 05:08 WBC Hct MCHC 35 H RDW 15.3 H Plt Count Lymph % (Auto) [place] % (Auto) Lymph # [place] # Seg Neutrophils % Seg Neutrophils # POC ABG pH POC ABG pCO2 POC ABG pO2 Sodium Potassium Chloride 97.4 L Carbon Dioxide 31 H BUN Glucose 177 H POC Glucose 200 H Hemoglobin A1c Lactic Acid Calcium Phosphorus Magnesium Total Bilirubin Direct Bilirubin AST Total Creatine Kinase CK-MB (CK-2) C-Reactive Protein Total Protein Albumin 04/22/18 04/22/18 04/23/18 12:15 18:04 04:55 WBC Hct MCHC RDW Plt Count Lymph % (Auto) [place] % (Auto) Lymph # [place] # Seg Neutrophils % Seg Neutrophils # POC ABG pH POC ABG pCO2 POC ABG pO2 Sodium Potassium Chloride Carbon Dioxide BUN 23 H Glucose 274 H POC Glucose 189 H 191 H Hemoglobin A1c Lactic Acid Calcium Phosphorus Magnesium Total Bilirubin Direct Bilirubin AST Total Creatine Kinase CK-MB (CK-2) C-Reactive Protein Total Protein Albumin 04/23/18 04/23/18 04/23/18 05:21 11:06 17:46 WBC Hct MCHC RDW Plt Count Lymph % (Auto) [place] % (Auto) Lymph # [place] # Seg Neutrophils % Seg Neutrophils # POC ABG pH POC ABG pCO2 POC ABG pO2 Sodium Potassium Chloride Carbon Dioxide BUN Glucose POC Glucose 143 H 176 H 142 H Hemoglobin A1c Lactic Acid Calcium Phosphorus Magnesium Total Bilirubin Direct Bilirubin AST Total Creatine Kinase CK-MB (CK-2) C-Reactive Protein Total Protein Albumin 04/23/18 04/24/18 04/24/18 23:35 06:02 11:37 WBC Hct MCHC RDW Plt Count Lymph % (Auto) [place] % (Auto) Lymph # [place] # Seg Neutrophils % Seg Neutrophils # POC ABG pH POC ABG pCO2 POC ABG pO2 Sodium Potassium Chloride Carbon Dioxide BUN Glucose POC Glucose 127 H 175 H 188 H Hemoglobin A1c Lactic Acid Calcium Phosphorus Magnesium Total Bilirubin Direct Bilirubin AST Total Creatine Kinase CK-MB (CK-2) C-Reactive Protein Total Protein Albumin Assessment and Plan 78 year old male presented on 11/07/18 with hypoglycemic encephalopathy, seizures. With normalization of his glucose levels and addition of Keppra, he has not awakened. This may have been a prolonged insult which may take longer to recover. Plan - A repeat EEG and MRI have been ordered. Will follow-up on those results. Thyroid panel and B-12 level.
[2018-04-24] MEDS: APRESOLINE PO SCH (14:08)
--- NOTE | 2018-04-24 14:24 | Progress Note ---
Assessment and Plan Cultures: Blood culture 04/09/2018 no growth so far Urine culture 04/10/2018 no growth so far Sputum culture 04/10/2018 upper respiratory mikayla. Blood culture 04/22/2018 no growth so far Assessment: 78 y/o male with history of hypertension, diabetes, coronary artery disease; admitted on 04/09/2018 due to be found unresponsive at home when the family has not heard from him. EMS was called, his blood sugar was undetectable: 1) Sepsis: New fever 04/20 and 04/21 - resolved. Etiology most likely aspiration pneumonia fully treated. Blood culture 04/11/2018 no growth so far. UA neg. CRP=7. Nursing staff reporting vomiting overnight 04/23 ? aspiration. Repeat CXR negative. 2) Presumed aspiration versus CAP: CXR focal infiltrate RLL. Sputum culture 04/10/2018 upper respiratory mikayla. Influenza neg. Repeat CXR neg 3) Acute respiratory failure: on vent, from encephalopathy/pneumonia 4) Generalized seizures: from hypoglycemia, resolved 5) Elevated LFTs: better; from sepsis or other etiologies? rhabdo, better. Viral hepatitis serology all negative. US no visualized GB. LFTs better 6) Acute encephalopathy: post seizures/ischemia. somnolent 7) Rhabdomyolysis: better Recommendations: - completed ceftriaxone D5 of 5, azithromycin D5 of 5 on 04/17/2018 and flagyl D5 of 5 to cover CAP versus aspiration pneumonia - aspiration precautions Will sign off Tiffanie Crowe MD Infectious Diseases [employer] [facility] M [phone] O [phone] Subjective Date of service: 04/24/18 Principal diagnosis: Ac Hypoxemic Resp Failure; Seizures; Encephalopathy; DM II; Rhabdomyolysis Interval history: Remains intubated on BIPAP, off sedation, open eyes, no fever for 3 days. ROS: unable to obtain Objective - Exam Narrative Exam: General appearance: open eyes, intubated on BIPAP in NAD Eyes: anicteric sclerae, moist conjunctivae; no lid-lag; PERRLA HENT: Atraumatic; oropharynx ETT/NGT Neck: Trachea midline; supple, no thyromegaly or lymphadenopathy Lungs: griffin coarse BS CV:bradycardic Abdomen: Soft, non-tender; no masses or hepatosplenomegaly Extremities: No peripheral edema or extremity lymphadenopathy Skin: Normal temperature, turgor and texture; no rash, ulcers or subcutaneous nodules Psych: somnolent Neuro: somnolent PICC line Condom cath - Constitutional Vitals: Vital Signs Temp Pulse Resp BP Pulse Ox 97.7 F 53 L 15 154/74 100 04/24/18 08:00 04/24/18 14:08 04/24/18 11:31 04/24/18 14:08 04/24/18 11:31 Temperature -Last 24 Hours Temperature 97.7 F Temperature 99.1 F Temperature 99.7 F Temperature 99.0 F Temperature 98.2 F Temperature 98.2 F - Labs CBC & Chem 7: 04/22/18 04:07 04/23/18 04:55 Labs: Abnormal lab results 04/23/18 04/23/18 04/24/18 Range/Units 17:46 23:35 06:02 POC Glucose 142 H 127 H 175 H (70-105) 04/24/18 Range/Units 11:37 POC Glucose 188 H (70-105)
[2018-04-24 17:34] LABS: Free T4 (Free Thyroxine) 0.1 ng/dL (0.76-1.46)
[2018-04-24] MEDS: SUBLIMAZE IV PRN (20:41)
[2018-04-25] MEDS: KEPPRA PO SCH ×3 (01:14→23:10)
[2018-04-25] MEDS: PEPCID PO SCH ×3 (01:15→23:10)
[2018-04-25] MEDS: HumaLOG SUB-Q SCH ×4 (01:15→18:12)
[2018-04-25] MEDS: APRESOLINE PO SCH ×4 (01:19→23:09)
[2018-04-25 06:05] LABS: Hematocrit 37.3 % (35.5-45.6); Hemoglobin 12.9 gm/dl (11.8-15.2); Mean Corpuscular HGB Conc 35 % (32-34); Mean Corpuscular Volume 89 fl (84-94); Platelet Count 200 K/mm3 (140-440); Red Cell Distribution Width 15.4 % (13.2-15.2)
[2018-04-25 06:23] LABS: BUN/Creatinine Ratio 14; Blood Urea Nitrogen 14 mg/dL (9-20); Calcium 9.3 mg/dL (8.4-10.2); Hemolysis Index 10
--- NOTE | 2018-04-25 07:35 | Progress Note ---
Assessment and Plan Assessment and plan: 78-year-old male patient with significant history of hypertension diabetes coronary artery disease was admitted through emergency room with history of unresponsiveness at home for unknown Duration of time. At that time he had hypoglycemia and seizure activity, Patient was unable to protect his airway and was intubated on ventilatory support admitted to ICU also with concern of Aspiration Pneumonia Hospital course -Neuro: Patient had CT scan 2 days does not show acute abnormality. 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 History this is most likely due to hypoglycemia, Now resolved Pulmonary: The patient has been maintained on mechanical ventilator, he's not been able to be weaned off the vent. The family wants to continue aggressive care. If the patient is not able, he will most likely need to be trached and peg FEN; his electrolytes namely potassium and phosphate were repleted ID; the patient received empiric antibiotics for pneumonia, Cultures including blood, urine and sputum has remained without growth. No new fever in the last 48hrs Musculoskeletal; Traumatic Rhabdomyolysis; status post IV fluids and improved, His medications were optimized for his chronic conditions Neuro: Unresponsive CXR: Concerning for Focal RLL infiltrate initially, repeat done 04/23/18 shows no acute pathology. Diagnosis Acute respiratory failure with hypoxia -s/p intubation on MV Greater than 96hr -pulmonology following -will likely need Trach and peg- surgeon consulted Acute Toxic metabolic encephalopathy Likely secondary to Hypoxic Ischemic Encephalopathy vs hypgolycemic encephalopathy -no significant change in ms -EEG abnormal, awaiting repeat -MRI brain neg -neurology following -Maintain sleep wake cycle - Discussed with Sons and sister extensively, Repeat EEG is pending. Will also obtain neurology re-evaluation. They understand the prognosis is poor. Hypokalemia -resolved s/p repletion, will monitor Severe sepsis 2/2 aspiration PNA -resolved -off antibiotics FOLLOWING TREATMENT WITH ROCEPHIN AND FLAGYL Aspiration Pneumonia -completed antibiotics - No new fever DM II with hyperglycemia - Was hypoglycemic on admission - BG improved - Cont current insulin regimen and adjust as needed Seizure, new onset -probably 2/2 hypoglycemia recorded by EMS staff prior to admission -stable on Keppra -cont seizure precautions Critical Illness Myopathy -cont supportive care Thrombocytopenia -level improved, will monitor Transaminitis -levels improved -Hepatitis panel neg -Abd US neg Rhabdomyolysis -improved Hypophosphatemia -resolved HTN -uncontrolled, meds adjusted Moderate protein calorie malnutrition -on tube feeding -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 Will call with further updates once Repeat EEG reports available. The high probability of a clinically significant, sudden or life threatening deterioration of the [Neurology, Pulmonary] system(s) required my full and direct attention, intervention and personal management. The aggregate critical care time was [35] minutes. This time is in addition to time spent performing reported procedures but includes the following: [x] Data Review and interpretation [x] Patient assessment and monitoring of vital signs [x] Documentation [x] Medication orders and management History Interval history: Patient seen and examined, Remains unresponsive although still spontaneously opens his eyes. No overnight issues reported. Patient remains off sedation and not responsive. Hospitalist Physical - Physical exam Narrative exam: VITAL SIGNS: Reviewed. GENERAL: The patient appeared well nourished and normally developed. Continues on mechanical ventilation. Ventilatory support- unresponsive. Vital signs as documented. HEAD: No signs of head trauma. EYES: Pupils are equal. Sluggish response to light.. EARS: Unable to assess MOUTH: ET tube in place. NECK: No adenopathy, no JVD. CHEST: Chest with clear breath sounds bilaterally. No wheezes, rales, or rhonchi. CARDIAC: Bradycardia with regular rate. S1 and S2, without murmurs, gallops, or rubs. VASCULAR: No Edema. Peripheral pulses normal and equal in all extremities. ABDOMEN: Soft, without detectable tenderness. No sign of distention. No r ebound or guarding, and no masses palpated. Bowel Sounds normal. MUSCULOSKELETAL: Unable to assess. Extremities without clubbing, cyanosis or edema. NEUROLOGIC EXAM: Unresponsive, MOVES EXT. OPENS EYES BUT NOT FOLLOWING COMMAND PSYCHIATRIC: Unable to assess SKIN: No rash or lesions. - Constitutional Vitals: Temp Pulse Resp BP Pulse Ox 98.2 F 77 14 111/57 100 04/25/18 04:00 04/25/18 06:25 04/25/18 06:00 04/25/18 06:25 04/25/18 06:00 General appearance: Present: no acute distress, other (intubated on vent) Results - Labs CBC & Chem 7: 04/25/18 05:22 04/25/18 05:22 Labs: Laboratory Last Values WBC 7.2 K/mm3 (4.5-11.0) 04/25/18 05:22 RBC 4.20 M/mm3 (3.65-5.03) 04/25/18 05:22 Hgb 12.9 gm/dl (11.8-15.2) 04/25/18 05:22 Hct 37.3 % (35.5-45.6) 04/25/18 05:22 MCV 89 fl (84-94) 04/25/18 05:22 MCH 31 pg (28-32) 04/25/18 05:22 MCHC 35 % (32-34) H 04/25/18 05:22 RDW 15.4 % (13.2-15.2) H 04/25/18 05:22 Plt Count 200 K/mm3 (140-440) 04/25/18 05:22 Lymph % (Auto) 21.2 % (13.4-35.0) 04/22/18 04:07 [place] % (Auto) 7.0 % (0.0-7.3) 04/22/18 04:07 Eos % (Auto) 3.5 % (0.0-4.3) 04/22/18 04:07 Baso % (Auto) 0.8 % (0.0-1.8) 04/22/18 04:07 Lymph # 2.0 K/mm3 (1.2-5.4) 04/22/18 04:07 [place] # 0.7 K/mm3 (0.0-0.8) 04/22/18 04:07 Eos # 0.3 K/mm3 (0.0-0.4) 04/22/18 04:07 Baso # 0.1 K/mm3 (0.0-0.1) 04/22/18 04:07 Seg Neutrophils % 67.5 % (40.0-70.0) 04/22/18 04:07 Seg Neutrophils # 6.5 K/mm3 (1.8-7.7) 04/22/18 04:07 APTT 24.8 Sec. (24.2-36.6) 04/09/18 23:16 POC ABG pH 7.497 (7.35-7.45) H 04/19/18 04:46 POC ABG pCO2 42.9 (35-45) 04/19/18 04:46 POC ABG pO2 119 (80-105) H 04/19/18 04:46 POC ABG HCO3 33.2 04/19/18 04:46 POC ABG Total CO2 35 04/19/18 04:46 POC ABG O2 Sat 99 04/19/18 04:46 POC ABG Base Excess 10 04/19/18 04:46 FiO2 30 % 04/19/18 04:46 Sodium 136 mmol/L (137-145) L 04/25/18 05:22 Potassium 4.4 mmol/L (3.6-5.0) 04/25/18 05:22 Chloride 95.0 mmol/L (98-107) L 04/25/18 05:22 Carbon Dioxide 28 mmol/L (22-30) 04/25/18 05:22 Anion Gap 17 mmol/L 04/25/18 05:22 BUN 14 mg/dL (9-20) 04/25/18 05:22 Creatinine 1.0 mg/dL (0.8-1.5) 04/25/18 05:22 Estimated GFR > 60 ml/min 04/25/18 05:22 BUN/Creatinine Ratio 14 % 04/25/18 05:22 Glucose 210 mg/dL (75-100) H 04/25/18 05:22 POC Glucose 176 (70-105) H 04/25/18 05:44 Hemoglobin A1c 6.4 % (4-6) H 04/11/18 04:28 Lactic Acid 1.70 mmol/L (0.7-2.0) 04/10/18 02:47 Calcium 9.3 mg/dL (8.4-10.2) 04/25/18 05:22 Phosphorus 3.60 mg/dL (2.5-4.5) 04/21/18 05:00 Magnesium 2.10 mg/dL (1.7-2.3) 04/21/18 05:00 Total Bilirubin 1.20 mg/dL (0.1-1.2) 04/18/18 11:00 Direct Bilirubin 0.3 mg/dL (0-0.2) H 04/18/18 11:00 Indirect Bilirubin 0.9 mg/dL 04/18/18 11:00 AST 87 units/L (5-40) H 04/18/18 11:00 ALT 39 units/L (7-56) 04/18/18 11:00 Alkaline Phosphatase 59 units/L (35-129) 04/18/18 11:00 Total Creatine Kinase 2247 units/L (55-170) H 04/14/18 05:00 CK-MB (CK-2) 30.0 ng/mL (0.0-4.0) H 04/10/18 10:37 CK-MB (CK-2) Rel Index 0.3 (0-4) 04/10/18 10:37 Troponin T < 0.010 ng/mL (0.00-0.029) 04/10/18 10:37 C-Reactive Protein 7.20 mg/dL (0.00-1.30) H 04/11/18 13:43 Total Protein 6.8 g/dL (6.3-8.2) 04/18/18 11:00 Albumin 3.7 g/dL (3.9-5) L 04/18/18 11:00 Albumin/Globulin Ratio 1.2 % 04/18/18 11:00 Vitamin B12 745.3 pg/mL (211-911) 04/24/18 16:50 TSH 47.760 mlU/mL (0.270-4.200) H 04/24/18 16:50 Free T4 0.10 ng/dL (0.76-1.46) L 04/24/18 16:50 Urine Color Yellow (Yellow) 04/10/18 01:07 Urine Turbidity Clear (Clear) 04/10/18 01:07 Urine pH 5.0 (5.0-7.0) 04/10/18 01:07 Ur Specific [place] 1.019 (1.003-1.030) 04/10/18 01:07 Urine Protein 100 mg/dl mg/dL (Negative) 04/10/18 01:07 Urine Glucose (UA) Neg mg/dL (Negative) 04/10/18 01:07 Urine Ketones Neg mg/dL (Negative) 04/10/18 01:07 Urine Blood Lg (Negative) 04/10/18 01:07 Urine Nitrite Neg (Negative) 04/10/18 01:07 Urine Bilirubin Neg (Negative) 04/10/18 01:07 Urine Urobilinogen < 2.0 mg/dL (<2.0) 04/10/18 01:07 Ur Leukocyte Esterase Neg (Negative) 04/10/18 01:07 Urine WBC (Auto) 1.0 /HPF (0.0-6.0) 04/10/18 01:07 Urine RBC (Auto) 9.0 /HPF (0.0-6.0) 04/10/18 01:07 U Epithel Cells (Auto) < 1.0 /HPF (0-13.0) 04/10/18 01:07 Urine Mucus Few /HPF 04/10/18 01:07 Levetiracetam 25.2 mcg/mL 04/12/18 20:37 Hepatitis A IgM Ab Non-reactive (NonReactive) 04/14/18 14:56 Hep Bs Antigen Non-reactive (Negative) 04/14/18 14:56 Hep B Core IgM Ab Non-reactive (NonReactive) 04/14/18 14:56 Hepatitis C Antibody Non-reactive (NonReactive) 04/14/18 14:56 Influenza A (Rapid) Negative (Negative) 04/11/18 15:08 Influenza B (Rapid) Negative (Negative) 04/11/18 15:08 Nutrition/Malnutrition Assess - Dietary Evaluation Nutrition/Malnutrition Findings: Nutrition Notes Start: 04/11/18 10:20 Freq: Status: Active Protocol: Document 04/22/18 11:44 LP (Rec: 04/22/18 11:50 LP [email or web address]) Nutrition Notes Initial or Follow up Assessment Current Diagnosis Coronary Artery Disease, Diabetes,Hypertension, Respiratory Failure Other Pertinent Diagnosis Pneu, new onset seizures, acute encephalopathy Current Diet Vital AF 1.2 at 50ml/hr Labs/Tests BG 177 Pertinent Medications Reviewed Height 5 ft 9 in Weight 91.5 kg [place] Body Weight (kg) 72.72 BMI 29.7 Subjective/Other Information Pt tolerating TF at goal rate. BG improved. Percent of energy/protein needs met: 98%/82% Burn Absent Trauma Absent #1 Nutrition Diagnosis Inadequate oral intake Diagnosis Progress(for reassessment Continues documentation) Is patient on ventilator? Yes Is Patient Ambulatory and/or Out of Bed No REE-([facility]-confined to bed) 1956.840 Kcal/Kg value to use for calculation 16 Approximate Energy Requirements Using 1464 kcal/Kg Calculation Used for Recommendations Kcal/kg Additional Notes Protein needs are 110-183g (1. 2-2g/kg) Fluid needs are 1ml/kcal Nutrition Intervention Change Diet Order: Vital AF 1.2 Nutrition Support: Vital 1.2 at 50 mL/hr. Water flush 80 mL q4h. Kcal 1,440 Protein (gm) 90 Carbohydrates (gm) 133 Fluid (mL) 973 Goal #1 Meet at least 80% of kcal and protein needs Anticipated Discharge Needs: Unable to determine at this time Follow-Up By: 04/25/18 Additional Comments Follow for stable TF
[2018-04-25] MEDS: DUONEB *Not for PRN Use IH SCH ×2 (08:14→14:47)
[2018-04-25] MEDS: SODIUM CHLORIDE FLUSH SYRINGE 10 ML IV SCH (09:14)
--- NOTE | 2018-04-25 09:35 | Event Note ---
Date: 04/25/18 Spoke with son (Ortiz) on the phone. He is "99%" sure that they want the trach/PEG. He will check with his brother for final confirmation. We will begin scheduling in anticipation of them giving consent.
[2018-04-25] MEDS: HumuLIN R SUB-Q SCH ×3 (09:39→20:10)
[2018-04-25] MEDS: NORVASC FEEDTUBE SCH (09:39)
[2018-04-25] MEDS: LANTUS SUB-Q SCH (09:40)
[2018-04-25] MEDS: LOVENOX SUB-Q SCH (09:40)
[2018-04-25] MEDS: PROVIGIL PO SCH (10:46)
--- NOTE | 2018-04-25 12:58 | Progress Note ---
Assessment and Plan 78 year old male presented on 11/07/18 with hypoglycemic encephalopathy, seizures. With normalization of his glucose levels and addition of Keppra, he has not awakened. This may have been a prolonged insult from which it may take longer to recover. TSH is 47; he is profoundly hypothyroid. EEG yesterday revealed improvement overall. The frontal delta waves have resolved, and the overall rhythm has improved to a rate of 6 cycles per second. There was a brief run of high voltage sharp activity in the frontal leads bilaterally towards the end of the tracing, suspicious for a potential seizure focus. For this reason I have increased his Keppra to 1000 mg BID. Plan - Thyroid replacement has been ordered. Will continue to follow. Subjective Date of service: 04/25/18 Principal diagnosis: Ac Hypoxemic Resp Failure; Seizures; Encephalopathy; DM II; Rhabdomyolysis Interval history: 78 year old male with history iof insulin dependent diabetes, hypertension and coronary artery disease, presented on 04/09/18, found down at homeand found to be hypoglycemic. CT scans have been unremarkable. This a.m. he is awake but not responding. Objective - Vital Sign Vital Signs - 12hr 04/25/18 04/25/18 04/25/18 01:00 01:19 01:43 Temperature Pulse Rate 60 64 65 Pulse Rate [ Bilateral Throughout] Pulse Rate [ From Monitor] Pulse Rate [ Throughout] Respiratory 17 Rate Respiratory Rate [Bilateral Throughout] Respiratory Rate [ Throughout] Blood Pressure 158/69 146/63 161/73 O2 Sat by Pulse 100 100 Oximetry 04/25/18 04/25/18 04/25/18 02:00 03:00 04:00 Temperature 98.2 F Pulse Rate 71 74 64 Pulse Rate [ Bilateral Throughout] Pulse Rate [ 60 From Monitor] Pulse Rate [ Throughout] Respiratory 19 19 19 Rate Respiratory Rate [Bilateral Throughout] Respiratory Rate [ Throughout] Blood Pressure 161/73 152/61 164/65 O2 Sat by Pulse 100 100 100 Oximetry 04/25/18 04/25/18 04/25/18 05:00 05:20 06:00 Temperature Pulse Rate 62 77 57 L Pulse Rate [ Bilateral Throughout] Pulse Rate [ From Monitor] Pulse Rate [ Throughout] Respiratory 15 14 Rate Respiratory Rate [Bilateral Throughout] Respiratory Rate [ Throughout] Blood Pressure 136/70 131/59 131/59 O2 Sat by Pulse 100 100 100 Oximetry 04/25/18 04/25/1804/25/19 06:25 07:00 08:00 Temperature 98.3 F Pulse Rate 77 87 59 L Pulse Rate [ Bilateral Throughout] Pulse Rate [ From Monitor] Pulse Rate [ Throughout] Respiratory 22 12 Rate Respiratory Rate [Bilateral Throughout] Respiratory Rate [ Throughout] Blood Pressure 111/57 158/69 119/63 O2 Sat by Pulse 100 100 Oximetry 04/25/18 04/25/18 04/25/18 08:14 09:00 09:39 Temperature Pulse Rate 58 L 85 91 H Pulse Rate [ 58 L Bilateral Throughout] Pulse Rate [ From Monitor] Pulse Rate [ 58 L Throughout] Respiratory 18 Rate Respiratory 13 Rate [Bilateral Throughout] Respiratory 13 Rate [ Throughout] Blood Pressure 119/63 150/98 144/88 O2 Sat by Pulse 100 100 Oximetry 04/25/18 10:00 Temperature Pulse Rate 88 Pulse Rate [ Bilateral Throughout] Pulse Rate [ From Monitor] Pulse Rate [ Throughout] Respiratory 23 Rate Respiratory Rate [Bilateral Throughout] Respiratory Rate [ Throughout] Blood Pressure 144/88 O2 Sat by Pulse 100 Oximetry General - eyes open on the ventilator. Does not follow commands. Seems to focus on the examiner. head grinder - eyes are midline. face symmetric Motor - moves all extremities, less movement in the rt. arm and hand. Reflexes - diminished throughout. Neg. babinski. Sensory - withdraws to pain all 4 limbs. - Laboratory Findings CBC and BMP: 04/25/18 05:22 04/25/18 05:22 Abnormal Lab Findings: Abnormal Labs 04/09/18 04/09/18 04/09/18 23:16 23:16 23:16 WBC 13.6 H Hct MCHC RDW Plt Count Lymph % (Auto) 9.4 L [place] % (Auto) Lymph # [place] # Seg Neutrophils % 87.3 H Seg Neutrophils # 11.9 H POC ABG pH POC ABG pCO2 POC ABG pO2 Sodium 132 L Potassium Chloride 92.7 L Carbon Dioxide BUN Glucose 143 H POC Glucose Hemoglobin A1c Lactic Acid 2.10 H* Calcium Phosphorus Magnesium Total Bilirubin 2.20 H Direct Bilirubin AST 107 H Total Creatine Kinase CK-MB (CK-2) C-Reactive Protein Total Protein Albumin TSH Free T4 04/10/18 04/10/18 04/10/18 00:38 00:55 01:13 WBC Hct MCHC RDW Plt Count Lymph % (Auto) [place] % (Auto) Lymph # [place] # Seg Neutrophils % Seg Neutrophils # POC ABG pH POC ABG pCO2 POC ABG pO2 Sodium Potassium Chloride Carbon Dioxide BUN Glucose POC Glucose 117 H 121 H Hemoglobin A1c Lactic Acid 2.10 H* Calcium Phosphorus Magnesium Total Bilirubin Direct Bilirubin AST Total Creatine Kinase CK-MB (CK-2) C-Reactive Protein Total Protein Albumin TSH Free T4 04/10/18 04/10/18 04/10/18 02:10 03:51 04:07 WBC 14.0 H Hct MCHC RDW Plt Count Lymph % (Auto) 7.5 L [place] % (Auto) Lymph # 1.1 L [place] # 1.0 H Seg Neutrophils % 84.9 H Seg Neutrophils # 11.8 H POC ABG pH POC ABG pCO2 POC ABG pO2 Sodium Potassium Chloride Carbon Dioxide BUN Glucose POC Glucose 153 H 158 H Hemoglobin A1c Lactic Acid Calcium Phosphorus Magnesium Total Bilirubin Direct Bilirubin AST Total Creatine Kinase CK-MB (CK-2) C-Reactive Protein Total Protein Albumin TSH Free T4 04/10/18 04/10/18 04/10/18 04:07 06:56 09:48 WBC Hct MCHC RDW Plt Count Lymph % (Auto) [place] % (Auto) Lymph # [place] # Seg Neutrophils % Seg Neutrophils # POC ABG pH POC ABG pCO2 POC ABG pO2 Sodium 130 L Potassium Chloride 93.4 L Carbon Dioxide BUN Glucose 180 H POC Glucose 251 H 245 H Hemoglobin A1c Lactic Acid Calcium 7.9 L D Phosphorus Magnesium Total Bilirubin Direct Bilirubin AST Total Creatine Kinase 7857 H CK-MB (CK-2) 34.3 H C-Reactive Protein Total Protein Albumin TSH Free T4 04/10/18 04/10/18 04/10/18 10:37 12:44 17:31 WBC Hct MCHC RDW Plt Count Lymph % (Auto) [place] % (Auto) Lymph # [place] # Seg Neutrophils % Seg Neutrophils # POC ABG pH POC ABG pCO2 45.6 H POC ABG pO2 374 H Sodium Potassium Chloride Carbon Dioxide BUN Glucose POC Glucose 348 H Hemoglobin A1c Lactic Acid Calcium Phosphorus Magnesium Total Bilirubin Direct Bilirubin AST Total Creatine Kinase 9880 H CK-MB (CK-2) 30.0 H C-Reactive Protein Total Protein Albumin TSH Free T4 04/10/18 04/11/18 04/11/18 23:36 03:52 04:28 WBC 12.2 H Hct MCHC RDW Plt Count 132 L Lymph % (Auto) [place] % (Auto) 10.2 H Lymph # [place] # 1.2 H Seg Neutrophils % 75.1 H Seg Neutrophils # 9.1 H POC ABG pH 7.495 H POC ABG pCO2 32.4 L POC ABG pO2 Sodium Potassium Chloride Carbon Dioxide BUN Glucose POC Glucose 148 H Hemoglobin A1c Lactic Acid Calcium Phosphorus Magnesium Total Bilirubin Direct Bilirubin AST Total Creatine Kinase CK-MB (CK-2) C-Reactive Protein Total Protein Albumin TSH Free T4 04/11/18 04/11/18 04/11/18 04:28 04:28 05:22 WBC Hct MCHC RDW Plt Count Lymph % (Auto) [place] % (Auto) Lymph # [place] # Seg Neutrophils % Seg Neutrophils # POC ABG pH POC ABG pCO2 POC ABG pO2 Sodium 133 L Potassium 3.5 L Chloride 95.1 L Carbon Dioxide BUN 7 L Glucose 206 H POC Glucose 178 H Hemoglobin A1c 6.4 H Lactic Acid Calcium 7.7 L Phosphorus 1.80 L Magnesium 1.50 L Total Bilirubin 4.10 H Direct Bilirubin AST 168 H Total Creatine Kinase 9352 H CK-MB (CK-2) C-Reactive Protein Total Protein Albumin 3.4 L TSH Free T4 04/11/18 04/11/18 04/11/18 11:28 13:43 17:30 WBC Hct MCHC RDW Plt Count Lymph % (Auto) [place] % (Auto) Lymph # [place] # Seg Neutrophils % Seg Neutrophils # POC ABG pH POC ABG pCO2 POC ABG pO2 Sodium Potassium Chloride Carbon Dioxide BUN Glucose POC Glucose 196 H 142 H Hemoglobin A1c Lactic Acid Calcium Phosphorus Magnesium Total Bilirubin Direct Bilirubin AST Total Creatine Kinase CK-MB (CK-2) C-Reactive Protein 7.20 H Total Protein Albumin TSH Free T4 04/11/18 04/11/18 04/12/18 18:59 23:23 04:00 WBC Hct MCHC RDW Plt Count Lymph % (Auto) [place] % (Auto) Lymph # [place] # Seg Neutrophils % Seg Neutrophils # POC ABG pH 7.489 H POC ABG pCO2 34.5 L POC ABG pO2 Sodium Potassium 3.3 L Chloride Carbon Dioxide BUN 6 L Glucose 151 H POC Glucose 129 H Hemoglobin A1c Lactic Acid Calcium 7.3 L Phosphorus 2.00 L Magnesium Total Bilirubin 2.80 H Direct Bilirubin AST 121 H Total Creatine Kinase 5177 H CK-MB (CK-2) C-Reactive Protein Total Protein 5.9 L Albumin 3.1 L TSH Free T4 04/12/18 04/12/18 04/12/18 04:00 04:04 05:21 WBC Hct 34.9 L MCHC 35 H RDW Plt Count 128 L Lymph % (Auto) [place] % (Auto) 10.6 H Lymph # [place] # 0.9 H Seg Neutrophils % Seg Neutrophils # POC ABG pH 7.454 H POC ABG pCO2 POC ABG pO2 Sodium Potassium Chloride Carbon Dioxide BUN Glucose POC Glucose 136 H Hemoglobin A1c Lactic Acid Calcium Phosphorus Magnesium Total Bilirubin Direct Bilirubin AST Total Creatine Kinase CK-MB (CK-2) C-Reactive Protein Total Protein Albumin TSH Free T4 04/12/18 04/13/18 04/13/18 11:23 00:21 04:57 WBC Hct MCHC RDW Plt Count Lymph % (Auto) [place] % (Auto) Lymph # [place] # Seg Neutrophils % Seg Neutrophils # POC ABG pH POC ABG pCO2 34.7 L POC ABG pO2 125 H Sodium Potassium Chloride Carbon Dioxide BUN Glucose POC Glucose 166 H 143 H Hemoglobin A1c Lactic Acid Calcium Phosphorus Magnesium Total Bilirubin Direct Bilirubin AST Total Creatine Kinase CK-MB (CK-2) C-Reactive Protein Total Protein Albumin TSH Free T4 04/13/18 04/13/18 04/13/18 05:02 05:02 12:16 WBC Hct MCHC RDW Plt Count Lymph % (Auto) [place] % (Auto) Lymph # [place] # Seg Neutrophils % Seg Neutrophils # POC ABG pH POC ABG pCO2 POC ABG pO2 Sodium Potassium Chloride Carbon Dioxide BUN Glucose POC Glucose 161 H 170 H Hemoglobin A1c Lactic Acid Calcium Phosphorus Magnesium Total Bilirubin Direct Bilirubin AST Total Creatine Kinase 3456 H CK-MB (CK-2) C-Reactive Protein Total Protein Albumin TSH Free T4 04/13/18 04/13/18 04/14/18 18:52 23:09 04:35 WBC Hct MCHC RDW Plt Count Lymph % (Auto) [place] % (Auto) Lymph # [place] # Seg Neutrophils % Seg Neutrophils # POC ABG pH 7.467 H POC ABG pCO2 POC ABG pO2 Sodium Potassium Chloride Carbon Dioxide BUN Glucose POC Glucose 196 H 219 H Hemoglobin A1c Lactic Acid Calcium Phosphorus Magnesium Total Bilirubin Direct Bilirubin AST Total Creatine Kinase CK-MB (CK-2) C-Reactive Protein Total Protein Albumin TSH Free T4 04/14/18 04/14/18 04/14/18 05:00 05:26 11:20 WBC Hct MCHC RDW Plt Count Lymph % (Auto) [place] % (Auto) Lymph # [place] # Seg Neutrophils % Seg Neutrophils # POC ABG pH POC ABG pCO2 POC ABG pO2 Sodium Potassium Chloride Carbon Dioxide BUN Glucose POC Glucose 249 H 260 H Hemoglobin A1c Lactic Acid Calcium Phosphorus Magnesium Total Bilirubin Direct Bilirubin AST Total Creatine Kinase 2247 H CK-MB (CK-2) C-Reactive Protein Total Protein Albumin TSH Free T4 04/14/18 04/14/18 04/14/18 17:04 17:51 23:53 WBC Hct MCHC RDW Plt Count Lymph % (Auto) [place] % (Auto) Lymph # [place] # Seg Neutrophils % Seg Neutrophils # POC ABG pH POC ABG pCO2 POC ABG pO2 79 L Sodium Potassium Chloride Carbon Dioxide BUN Glucose POC Glucose 284 H 203 H Hemoglobin A1c Lactic Acid Calcium Phosphorus Magnesium Total Bilirubin Direct Bilirubin AST Total Creatine Kinase CK-MB (CK-2) C-Reactive Protein Total Protein Albumin TSH Free T4 04/15/18 04/15/18 04/15/18 04:24 05:26 12:56 WBC Hct MCHC RDW Plt Count Lymph % (Auto) [place] % (Auto) Lymph # [place] # Seg Neutrophils % Seg Neutrophils # POC ABG pH POC ABG pCO2 45.4 H POC ABG pO2 78 L Sodium Potassium Chloride Carbon Dioxide BUN Glucose POC Glucose 194 H 200 H Hemoglobin A1c Lactic Acid Calcium Phosphorus Magnesium Total Bilirubin Direct Bilirubin AST Total Creatine Kinase CK-MB (CK-2) C-Reactive Protein Total Protein Albumin TSH Free T4 04/15/18 04/15/18 04/16/18 17:46 23:57 05:08 WBC Hct MCHC RDW Plt Count Lymph % (Auto) [place] % (Auto) Lymph # [place] # Seg Neutrophils % Seg Neutrophils # POC ABG pH POC ABG pCO2 POC ABG pO2 Sodium Potassium Chloride Carbon Dioxide BUN Glucose POC Glucose 118 H 204 H 221 H Hemoglobin A1c Lactic Acid Calcium Phosphorus Magnesium Total Bilirubin Direct Bilirubin AST Total Creatine Kinase CK-MB (CK-2) C-Reactive Protein Total Protein Albumin TSH Free T4 04/16/18 04/16/18 04/16/18 05:16 12:23 13:07 WBC Hct MCHC RDW Plt Count Lymph % (Auto) [place] % (Auto) Lymph # [place] # Seg Neutrophils % Seg Neutrophils # POC ABG pH 7.456 H POC ABG pCO2 46.7 H POC ABG pO2 Sodium Potassium Chloride Carbon Dioxide BUN Glucose POC Glucose 271 H Hemoglobin A1c Lactic Acid Calcium Phosphorus Magnesium Total Bilirubin Direct Bilirubin AST Total Creatine Kinase CK-MB (CK-2) C-Reactive Protein Total Protein Albumin TSH Free T4 04/16/18 04/17/18 04/17/18 19:14 00:08 05:46 WBC Hct MCHC RDW Plt Count Lymph % (Auto) [place] % (Auto) Lymph # [place] # Seg Neutrophils % Seg Neutrophils # POC ABG pH POC ABG pCO2 POC ABG pO2 Sodium Potassium Chloride Carbon Dioxide BUN Glucose POC Glucose 221 H 238 H 274 H Hemoglobin A1c Lactic Acid Calcium Phosphorus Magnesium Total Bilirubin Direct Bilirubin AST Total Creatine Kinase CK-MB (CK-2) C-Reactive Protein Total Protein Albumin TSH Free T4 04/17/18 04/17/18 04/17/18 13:50 13:59 14:20 WBC Hct MCHC RDW Plt Count Lymph % (Auto) [place] % (Auto) Lymph # [place] # Seg Neutrophils % Seg Neutrophils # POC ABG pH 7.474 H POC ABG pCO2 POC ABG pO2 Sodium Potassium 3.4 L Chloride 93.6 L Carbon Dioxide 33 H BUN Glucose 305 H POC Glucose 315 H Hemoglobin A1c Lactic Acid Calcium Phosphorus Magnesium Total Bilirubin Direct Bilirubin AST Total Creatine Kinase CK-MB (CK-2) C-Reactive Protein Total Protein Albumin TSH Free T4 04/17/18 04/17/18 04/18/18 17:04 23:26 04:20 WBC Hct MCHC RDW Plt Count Lymph % (Auto) [place] % (Auto) Lymph # [place] # Seg Neutrophils % Seg Neutrophils # POC ABG pH 7.473 H POC ABG pCO2 POC ABG pO2 Sodium Potassium Chloride Carbon Dioxide BUN Glucose POC Glucose 280 H 284 H Hemoglobin A1c Lactic Acid Calcium Phosphorus Magnesium Total Bilirubin Direct Bilirubin AST Total Creatine Kinase CK-MB (CK-2) C-Reactive Protein Total Protein Albumin TSH Free T4 04/18/18 04/18/18 04/18/18 05:14 08:32 11:00 WBC Hct MCHC RDW Plt Count Lymph % (Auto) [place] % (Auto) Lymph # [place] # Seg Neutrophils % Seg Neutrophils # POC ABG pH POC ABG pCO2 POC ABG pO2 Sodium Potassium Chloride Carbon Dioxide BUN Glucose POC Glucose 286 H 296 H Hemoglobin A1c Lactic Acid Calcium Phosphorus Magnesium Total Bilirubin Direct Bilirubin 0.3 H AST 87 H Total Creatine Kinase CK-MB (CK-2) C-Reactive Protein Total Protein Albumin 3.7 L TSH Free T4 04/18/18 04/18/18 04/19/18 12:03 18:15 00:08 WBC Hct MCHC RDW Plt Count Lymph % (Auto) [place] % (Auto) Lymph # [place] # Seg Neutrophils % Seg Neutrophils # POC ABG pH POC ABG pCO2 POC ABG pO2 Sodium Potassium Chloride Carbon Dioxide BUN Glucose POC Glucose 353 H 327 H 331 H Hemoglobin A1c Lactic Acid Calcium Phosphorus Magnesium Total Bilirubin Direct Bilirubin AST Total Creatine Kinase CK-MB (CK-2) C-Reactive Protein Total Protein Albumin TSH Free T4 04/19/18 04/19/18 04/19/18 04:46 05:26 11:48 WBC Hct MCHC RDW Plt Count Lymph % (Auto) [place] % (Auto) Lymph # [place] # Seg Neutrophils % Seg Neutrophils # POC ABG pH 7.497 H POC ABG pCO2 POC ABG pO2 119 H Sodium Potassium Chloride Carbon Dioxide BUN Glucose POC Glucose 323 H 266 H Hemoglobin A1c Lactic Acid Calcium Phosphorus Magnesium Total Bilirubin Direct Bilirubin AST Total Creatine Kinase CK-MB (CK-2) C-Reactive Protein Total Protein Albumin TSH Free T4 04/19/18 04/19/18 04/20/18 17:52 23:37 00:07 WBC Hct MCHC RDW Plt Count Lymph % (Auto) [place] % (Auto) Lymph # [place] # Seg Neutrophils % Seg Neutrophils # POC ABG pH POC ABG pCO2 POC ABG pO2 Sodium Potassium Chloride Carbon Dioxide BUN Glucose POC Glucose 284 H 285 H 312 H Hemoglobin A1c Lactic Acid Calcium Phosphorus Magnesium Total Bilirubin Direct Bilirubin AST Total Creatine Kinase CK-MB (CK-2) C-Reactive Protein Total Protein Albumin TSH Free T4 04/20/18 04/20/18 04/20/18 04:09 04:09 04:37 WBC Hct 34.7 L MCHC 35 H RDW Plt Count Lymph % (Auto) [place] % (Auto) Lymph # [place] # Seg Neutrophils % Seg Neutrophils # POC ABG pH POC ABG pCO2 POC ABG pO2 Sodium Potassium 3.5 L Chloride 95.7 L Carbon Dioxide 34 H BUN Glucose 286 H POC Glucose 267 H Hemoglobin A1c Lactic Acid Calcium Phosphorus Magnesium Total Bilirubin Direct Bilirubin AST Total Creatine Kinase CK-MB (CK-2) C-Reactive Protein Total Protein Albumin TSH Free T4 04/20/18 04/20/18 04/20/18 12:32 17:54 21:07 WBC Hct MCHC RDW Plt Count Lymph % (Auto) [place] % (Auto) Lymph # [place] # Seg Neutrophils % Seg Neutrophils # POC ABG pH POC ABG pCO2 POC ABG pO2 Sodium Potassium Chloride Carbon Dioxide BUN Glucose POC Glucose 220 H 298 H 187 H Hemoglobin A1c Lactic Acid Calcium Phosphorus Magnesium Total Bilirubin Direct Bilirubin AST Total Creatine Kinase CK-MB (CK-2) C-Reactive Protein Total Protein Albumin TSH Free T4 04/21/18 04/21/18 04/21/18 00:04 05:00 05:41 WBC Hct MCHC RDW Plt Count Lymph % (Auto) [place] % (Auto) Lymph # [place] # Seg Neutrophils % Seg Neutrophils # POC ABG pH POC ABG pCO2 POC ABG pO2 Sodium Potassium Chloride 95.2 L Carbon Dioxide 34 H BUN Glucose 179 H POC Glucose 183 H 166 H Hemoglobin A1c Lactic Acid Calcium Phosphorus Magnesium Total Bilirubin Direct Bilirubin AST Total Creatine Kinase CK-MB (CK-2) C-Reactive Protein Total Protein Albumin TSH Free T4 04/21/18 04/21/18 04/21/18 11:55 18:09 23:36 WBC Hct MCHC RDW Plt Count Lymph % (Auto) [place] % (Auto) Lymph # [place] # Seg Neutrophils % Seg Neutrophils # POC ABG pH POC ABG pCO2 POC ABG pO2 Sodium Potassium Chloride Carbon Dioxide BUN Glucose POC Glucose 219 H 247 H 229 H Hemoglobin A1c Lactic Acid Calcium Phosphorus Magnesium Total Bilirubin Direct Bilirubin AST Total Creatine Kinase CK-MB (CK-2) C-Reactive Protein Total Protein Albumin TSH Free T4 04/22/18 04/22/18 04/22/18 04:07 04:07 05:08 WBC Hct MCHC 35 H RDW 15.3 H Plt Count Lymph % (Auto) [place] % (Auto) Lymph # [place] # Seg Neutrophils % Seg Neutrophils # POC ABG pH POC ABG pCO2 POC ABG pO2 Sodium Potassium Chloride 97.4 L Carbon Dioxide 31 H BUN Glucose 177 H POC Glucose 200 H Hemoglobin A1c Lactic Acid Calcium Phosphorus Magnesium Total Bilirubin Direct Bilirubin AST Total Creatine Kinase CK-MB (CK-2) C-Reactive Protein Total Protein Albumin TSH Free T4 04/22/18 04/22/18 04/23/18 12:15 18:04 04:55 WBC Hct MCHC RDW Plt Count Lymph % (Auto) [place] % (Auto) Lymph # [place] # Seg Neutrophils % Seg Neutrophils # POC ABG pH POC ABG pCO2 POC ABG pO2 Sodium Potassium Chloride Carbon Dioxide BUN 23 H Glucose 274 H POC Glucose 189 H 191 H Hemoglobin A1c Lactic Acid Calcium Phosphorus Magnesium Total Bilirubin Direct Bilirubin AST Total Creatine Kinase CK-MB (CK-2) C-Reactive Protein Total Protein Albumin TSH Free T4 04/23/18 04/23/18 04/23/18 05:21 11:06 17:46 WBC Hct MCHC RDW Plt Count Lymph % (Auto) [place] % (Auto) Lymph # [place] # Seg Neutrophils % Seg Neutrophils # POC ABG pH POC ABG pCO2 POC ABG pO2 Sodium Potassium Chloride Carbon Dioxide BUN Glucose POC Glucose 143 H 176 H 142 H Hemoglobin A1c Lactic Acid Calcium Phosphorus Magnesium Total Bilirubin Direct Bilirubin AST Total Creatine Kinase CK-MB (CK-2) C-Reactive Protein Total Protein Albumin TSH Free T4 04/23/18 04/24/18 04/24/18 23:35 06:02 11:37 WBC Hct MCHC RDW Plt Count Lymph % (Auto) [place] % (Auto) Lymph # [place] # Seg Neutrophils % Seg Neutrophils # POC ABG pH POC ABG pCO2 POC ABG pO2 Sodium Potassium Chloride Carbon Dioxide BUN Glucose POC Glucose 127 H 175 H 188 H Hemoglobin A1c Lactic Acid Calcium Phosphorus Magnesium Total Bilirubin Direct Bilirubin AST Total Creatine Kinase CK-MB (CK-2) C-Reactive Protein Total Protein Albumin TSH Free T4 04/24/18 04/24/18 04/24/18 16:50 18:40 20:23 WBC Hct MCHC RDW Plt Count Lymph % (Auto) [place] % (Auto) Lymph # [place] # Seg Neutrophils % Seg Neutrophils # POC ABG pH POC ABG pCO2 POC ABG pO2 Sodium Potassium Chloride Carbon Dioxide BUN Glucose POC Glucose 134 H 148 H Hemoglobin A1c Lactic Acid Calcium Phosphorus Magnesium Total Bilirubin Direct Bilirubin AST Total Creatine Kinase CK-MB (CK-2) C-Reactive Protein Total Protein Albumin TSH 47.760 H Free T4 0.10 L 04/24/18 04/25/18 04/25/18 23:14 05:22 05:22 WBC Hct MCHC 35 H RDW 15.4 H Plt Count Lymph % (Auto) [place] % (Auto) Lymph # [place] # Seg Neutrophils % Seg Neutrophils # POC ABG pH POC ABG pCO2 POC ABG pO2 Sodium 136 L Potassium Chloride 95.0 L Carbon Dioxide BUN Glucose 210 H POC Glucose 145 H Hemoglobin A1c Lactic Acid Calcium Phosphorus Magnesium Total Bilirubin Direct Bilirubin AST Total Creatine Kinase CK-MB (CK-2) C-Reactive Protein Total Protein Albumin TSH Free T4 04/25/18 05:44 WBC Hct MCHC RDW Plt Count Lymph % (Auto) [place] % (Auto) Lymph # [place] # Seg Neutrophils % Seg Neutrophils # POC ABG pH POC ABG pCO2 POC ABG pO2 Sodium Potassium Chloride Carbon Dioxide BUN Glucose POC Glucose 176 H Hemoglobin A1c Lactic Acid Calcium Phosphorus Magnesium Total Bilirubin Direct Bilirubin AST Total Creatine Kinase CK-MB (CK-2) C-Reactive Protein Total Protein Albumin TSH Free T4
--- NOTE | 2018-04-25 13:13 | Progress Note ---
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) Diabetes Type II Rhabdomyolysis Obesity HTN Possible JOE Hyponatremia (mild) Hypomagnesemia leucocytosis (AMS remains rate limiting step to safe extubation at this point) - Begin IV thyroxine at 75 mcg daily - If AMS persist's he will get the tracheostomy - continue daytime PSV trials as tolerated - prn CXR's & ABG's at this point (irdered for today) - follow clinically of AB's s/p empiric therapy (ID input appreciated) - continue to wean supplemental oxygen to keep O2 sats > 90% - continue bronchodilators with pulmonary hygiene per RT - VAP bundle addressed - continue daily SAT's - titrate sedatives for RASS 0 to -1 (on hold re: AMS) - neurology evaluation ongoing - PICC line pulled - GI & VTE prophylaxis - trend CpK level - continue IVF fluids re: Rhabdo - replace electrolytes - continue AED's (Keppra) - continue pertinent home med's - continue enteral nutrition as tolerated - continue accuchecks q6h with glycemic control per SSI for target BG 140-180 mg/dL - will likely need outpatient PSG to evaluate JOE - continue other care per attending / other instructional systems design consultant's ....... care plan discussed at length with his eldest son in the room and all his questions were answered; he will benefit from a Tracheostomy with AMS issues currently CODE STATUS: FULL CODE The high probability of a clinically significant, sudden or life-threatening deterioration of the [cardiac, neurology] system(s) required my full and direct attention, intervention and personal management. The aggregate critical care time was [34] minutes without overlap. Time includes spent on; [x] Data Review and interpretation [x] Patient assessment and monitoring of vital signs [x] Documentation [x] Medication orders and management Subjective Date of service: 04/25/18 Principal diagnosis: Ac Hypoxemic Resp Failure; Seizures; Encephalopathy; DM II; Rhabdomyolysis Interval history: Patient is seen today for: Acute Hypoxemic Respiratory Failure; New Onset Seizures (presumed secondary to Hypoglycemia); Acute Encephalopathy (Toxic - Metabolic); Diabetes Type II; Rhabdomyolysis Seen and examined at bedside; 24hour events reviewed; nursing and respiratory care staff consulted; no adverse overnight events reported to me; resting peacefully in bed; AMS with some improvement; TSH significantly elevated with low T4; no seizures; no emesis or overrt aspiration; tolerating PSV Objective Vital Signs - 12hr 04/25/18 04/25/18 04/25/18 01:19 01:43 02:00 Temperature Pulse Rate 64 65 71 Pulse Rate [ Bilateral Throughout] Pulse Rate [ From Monitor] Pulse Rate [ Throughout] Respiratory 19 Rate Respiratory Rate [Bilateral Throughout] Respiratory Rate [ Throughout] Blood Pressure 146/63 161/73 161/73 O2 Sat by Pulse 100 100 Oximetry 04/25/18 04/25/18 04/25/18 03:00 04:00 05:00 Temperature 98.2 F Pulse Rate 74 64 62 Pulse Rate [ Bilateral Throughout] Pulse Rate [ 60 From Monitor] Pulse Rate [ Throughout] Respiratory 19 19 15 Rate Respiratory Rate [Bilateral Throughout] Respiratory Rate [ Throughout] Blood Pressure 152/61 164/65 136/70 O2 Sat by Pulse 100 100 100 Oximetry 04/25/18 04/25/18 04/25/18 05:20 06:00 06:25 Temperature Pulse Rate 77 57 L 77 Pulse Rate [ Bilateral Throughout] Pulse Rate [ From Monitor] Pulse Rate [ Throughout] Respiratory 14 Rate Respiratory Rate [Bilateral Throughout] Respiratory Rate [ Throughout] Blood Pressure 131/59 131/59 111/57 O2 Sat by Pulse 100 100 Oximetry 04/25/18 04/25/18 04/25/18 07:00 08:00 08:14 Temperature 98.3 F Pulse Rate 87 59 L 58 L Pulse Rate [ 58 L Bilateral Throughout] Pulse Rate [ From Monitor] Pulse Rate [ 58 L Throughout] Respiratory 22 12 Rate Respiratory 13 Rate [Bilateral Throughout] Respiratory 13 Rate [ Throughout] Blood Pressure 158/69 119/63 119/63 O2 Sat by Pulse 100 100 100 Oximetry 04/25/18 04/25/18 04/25/18 09:00 09:39 10:00 Temperature Pulse Rate 85 91 H 88 Pulse Rate [ Bilateral Throughout] Pulse Rate [ From Monitor] Pulse Rate [ Throughout] Respiratory 18 23 Rate Respiratory Rate [Bilateral Throughout] Respiratory Rate [ Throughout] Blood Pressure 150/98 144/88 144/88 O2 Sat by Pulse 100 100 Oximetry Constitutional: no acute distress, other (Elderly looking AAM, normocephalic and atraumatic with mildly increased respiratory effort on MVS) Eyes: non-icteric ENT: oropharynx moist, other (ETT 23 cm STEPHANIE) Neck: supple, no lymphadenopathy, no JVD, other (large neck circumference) Effort: mildly labored Ascultation: Bilateral: diminished breath sounds, rhonchi Percussion: Bilateral: not dull Cardiovascular: regular rate and rhythm Gastrointestinal: normoactive bowel sounds, soft, non-tender, non-distended, other (protuberant) Integumentary: normal Extremities: no cyanosis, no edema, pulses normal, no ischemia or petechiae Neurologic: non-focal exam (grossly), unable to assess, other (opens eyes spontaneously, not following my prompts) Psychiatric: other (unable to assess) CBC and BMP: 04/25/18 05:22 04/25/18 05:22 ABG, PT/INR, D-dimer: ABG POC ABG pH 7.497 (7.35-7.45) H 04/19/18 04:46 POC ABG pCO2 42.9 (35-45) 04/19/18 04:46 POC ABG pO2 119 (80-105) H 04/19/18 04:46 POC ABG HCO3 33.2 04/19/18 04:46 POC ABG Total CO2 35 04/19/18 04:46 POC ABG O2 Sat 99 04/19/18 04:46 Abnormal lab findings: Abnormal Labs 04/09/18 04/09/18 04/09/18 23:16 23:16 23:16 WBC 13.6 H Hct MCHC RDW Plt Count Lymph % (Auto) 9.4 L [place] % (Auto) Lymph # [place] # Seg Neutrophils % 87.3 H Seg Neutrophils # 11.9 H POC ABG pH POC ABG pCO2 POC ABG pO2 Sodium 132 L Potassium Chloride 92.7 L Carbon Dioxide BUN Glucose 143 H POC Glucose Hemoglobin A1c Lactic Acid 2.10 H* Calcium Phosphorus Magnesium Total Bilirubin 2.20 H Direct Bilirubin AST 107 H Total Creatine Kinase CK-MB (CK-2) C-Reactive Protein Total Protein Albumin TSH Free T4 04/10/18 04/10/18 04/10/18 00:38 00:55 01:13 WBC Hct MCHC RDW Plt Count Lymph % (Auto) [place] % (Auto) Lymph # [place] # Seg Neutrophils % Seg Neutrophils # POC ABG pH POC ABG pCO2 POC ABG pO2 Sodium Potassium Chloride Carbon Dioxide BUN Glucose POC Glucose 117 H 121 H Hemoglobin A1c Lactic Acid 2.10 H* Calcium Phosphorus Magnesium Total Bilirubin Direct Bilirubin AST Total Creatine Kinase CK-MB (CK-2) C-Reactive Protein Total Protein Albumin TSH Free T4 04/10/18 04/10/18 04/10/18 02:10 03:51 04:07 WBC 14.0 H Hct MCHC RDW Plt Count Lymph % (Auto) 7.5 L [place] % (Auto) Lymph # 1.1 L [place] # 1.0 H Seg Neutrophils % 84.9 H Seg Neutrophils # 11.8 H POC ABG pH POC ABG pCO2 POC ABG pO2 Sodium Potassium Chloride Carbon Dioxide BUN Glucose POC Glucose 153 H 158 H Hemoglobin A1c Lactic Acid Calcium Phosphorus Magnesium Total Bilirubin Direct Bilirubin AST Total Creatine Kinase CK-MB (CK-2) C-Reactive Protein Total Protein Albumin TSH Free T4 04/10/18 04/10/18 04/10/18 04:07 06:56 09:48 WBC Hct MCHC RDW Plt Count Lymph % (Auto) [place] % (Auto) Lymph # [place] # Seg Neutrophils % Seg Neutrophils # POC ABG pH POC ABG pCO2 POC ABG pO2 Sodium 130 L Potassium Chloride 93.4 L Carbon Dioxide BUN Glucose 180 H POC Glucose 251 H 245 H Hemoglobin A1c Lactic Acid Calcium 7.9 L D Phosphorus Magnesium Total Bilirubin Direct Bilirubin AST Total Creatine Kinase 7857 H CK-MB (CK-2) 34.3 H C-Reactive Protein Total Protein Albumin TSH Free T4 04/10/18 04/10/18 04/10/18 10:37 12:44 17:31 WBC Hct MCHC RDW Plt Count Lymph % (Auto) [place] % (Auto) Lymph # [place] # Seg Neutrophils % Seg Neutrophils # POC ABG pH POC ABG pCO2 45.6 H POC ABG pO2 374 H Sodium Potassium Chloride Carbon Dioxide BUN Glucose POC Glucose 348 H Hemoglobin A1c Lactic Acid Calcium Phosphorus Magnesium Total Bilirubin Direct Bilirubin AST Total Creatine Kinase 9880 H CK-MB (CK-2) 30.0 H C-Reactive Protein Total Protein Albumin TSH Free T4 04/10/18 04/11/18 04/11/18 23:36 03:52 04:28 WBC 12.2 H Hct MCHC RDW Plt Count 132 L Lymph % (Auto) [place] % (Auto) 10.2 H Lymph # [place] # 1.2 H Seg Neutrophils % 75.1 H Seg Neutrophils # 9.1 H POC ABG pH 7.495 H POC ABG pCO2 32.4 L POC ABG pO2 Sodium Potassium Chloride Carbon Dioxide BUN Glucose POC Glucose 148 H Hemoglobin A1c Lactic Acid Calcium Phosphorus Magnesium Total Bilirubin Direct Bilirubin AST Total Creatine Kinase CK-MB (CK-2) C-Reactive Protein Total Protein Albumin TSH Free T4 04/11/18 04/11/18 04/11/18 04:28 04:28 05:22 WBC Hct MCHC RDW Plt Count Lymph % (Auto) [place] % (Auto) Lymph # [place] # Seg Neutrophils % Seg Neutrophils # POC ABG pH POC ABG pCO2 POC ABG pO2 Sodium 133 L Potassium 3.5 L Chloride 95.1 L Carbon Dioxide BUN 7 L Glucose 206 H POC Glucose 178 H Hemoglobin A1c 6.4 H Lactic Acid Calcium 7.7 L Phosphorus 1.80 L Magnesium 1.50 L Total Bilirubin 4.10 H Direct Bilirubin AST 168 H Total Creatine Kinase 9352 H CK-MB (CK-2) C-Reactive Protein Total Protein Albumin 3.4 L TSH Free T4 04/11/18 04/11/18 04/11/18 11:28 13:43 17:30 WBC Hct MCHC RDW Plt Count Lymph % (Auto) [place] % (Auto) Lymph # [place] # Seg Neutrophils % Seg Neutrophils # POC ABG pH POC ABG pCO2 POC ABG pO2 Sodium Potassium Chloride Carbon Dioxide BUN Glucose POC Glucose 196 H 142 H Hemoglobin A1c Lactic Acid Calcium Phosphorus Magnesium Total Bilirubin Direct Bilirubin AST Total Creatine Kinase CK-MB (CK-2) C-Reactive Protein 7.20 H Total Protein Albumin TSH Free T4 04/11/18 04/11/18 04/12/18 18:59 23:23 04:00 WBC Hct MCHC RDW Plt Count Lymph % (Auto) [place] % (Auto) Lymph # [place] # Seg Neutrophils % Seg Neutrophils # POC ABG pH 7.489 H POC ABG pCO2 34.5 L POC ABG pO2 Sodium Potassium 3.3 L Chloride Carbon Dioxide BUN 6 L Glucose 151 H POC Glucose 129 H Hemoglobin A1c Lactic Acid Calcium 7.3 L Phosphorus 2.00 L Magnesium Total Bilirubin 2.80 H Direct Bilirubin AST 121 H Total Creatine Kinase 5177 H CK-MB (CK-2) C-Reactive Protein Total Protein 5.9 L Albumin 3.1 L TSH Free T4 04/12/18 04/12/18 04/12/18 04:00 04:04 05:21 WBC Hct 34.9 L MCHC 35 H RDW Plt Count 128 L Lymph % (Auto) [place] % (Auto) 10.6 H Lymph # [place] # 0.9 H Seg Neutrophils % Seg Neutrophils # POC ABG pH 7.454 H POC ABG pCO2 POC ABG pO2 Sodium Potassium Chloride Carbon Dioxide BUN Glucose POC Glucose 136 H Hemoglobin A1c Lactic Acid Calcium Phosphorus Magnesium Total Bilirubin Direct Bilirubin AST Total Creatine Kinase CK-MB (CK-2) C-Reactive Protein Total Protein Albumin TSH Free T4 04/12/18 04/13/18 04/13/18 11:23 00:21 04:57 WBC Hct MCHC RDW Plt Count Lymph % (Auto) [place] % (Auto) Lymph # [place] # Seg Neutrophils % Seg Neutrophils # POC ABG pH POC ABG pCO2 34.7 L POC ABG pO2 125 H Sodium Potassium Chloride Carbon Dioxide BUN Glucose POC Glucose 166 H 143 H Hemoglobin A1c Lactic Acid Calcium Phosphorus Magnesium Total Bilirubin Direct Bilirubin AST Total Creatine Kinase CK-MB (CK-2) C-Reactive Protein Total Protein Albumin TSH Free T4 04/13/18 04/13/18 04/13/18 05:02 05:02 12:16 WBC Hct MCHC RDW Plt Count Lymph % (Auto) [place] % (Auto) Lymph # [place] # Seg Neutrophils % Seg Neutrophils # POC ABG pH POC ABG pCO2 POC ABG pO2 Sodium Potassium Chloride Carbon Dioxide BUN Glucose POC Glucose 161 H 170 H Hemoglobin A1c Lactic Acid Calcium Phosphorus Magnesium Total Bilirubin Direct Bilirubin AST Total Creatine Kinase 3456 H CK-MB (CK-2) C-Reactive Protein Total Protein Albumin TSH Free T4 04/13/18 04/13/18 04/14/18 18:52 23:09 04:35 WBC Hct MCHC RDW Plt Count Lymph % (Auto) [place] % (Auto) Lymph # [place] # Seg Neutrophils % Seg Neutrophils # POC ABG pH 7.467 H POC ABG pCO2 POC ABG pO2 Sodium Potassium Chloride Carbon Dioxide BUN Glucose POC Glucose 196 H 219 H Hemoglobin A1c Lactic Acid Calcium Phosphorus Magnesium Total Bilirubin Direct Bilirubin AST Total Creatine Kinase CK-MB (CK-2) C-Reactive Protein Total Protein Albumin TSH Free T4 04/14/18 04/14/18 04/14/18 05:00 05:26 11:20 WBC Hct MCHC RDW Plt Count Lymph % (Auto) [place] % (Auto) Lymph # [place] # Seg Neutrophils % Seg Neutrophils # POC ABG pH POC ABG pCO2 POC ABG pO2 Sodium Potassium Chloride Carbon Dioxide BUN Glucose POC Glucose 249 H 260 H Hemoglobin A1c Lactic Acid Calcium Phosphorus Magnesium Total Bilirubin Direct Bilirubin AST Total Creatine Kinase 2247 H CK-MB (CK-2) C-Reactive Protein Total Protein Albumin TSH Free T4 04/14/18 04/14/18 04/14/18 17:04 17:51 23:53 WBC Hct MCHC RDW Plt Count Lymph % (Auto) [place] % (Auto) Lymph # [place] # Seg Neutrophils % Seg Neutrophils # POC ABG pH POC ABG pCO2 POC ABG pO2 79 L Sodium Potassium Chloride Carbon Dioxide BUN Glucose POC Glucose 284 H 203 H Hemoglobin A1c Lactic Acid Calcium Phosphorus Magnesium Total Bilirubin Direct Bilirubin AST Total Creatine Kinase CK-MB (CK-2) C-Reactive Protein Total Protein Albumin TSH Free T4 04/15/18 04/15/18 04/15/18 04:24 05:26 12:56 WBC Hct MCHC RDW Plt Count Lymph % (Auto) [place] % (Auto) Lymph # [place] # Seg Neutrophils % Seg Neutrophils # POC ABG pH POC ABG pCO2 45.4 H POC ABG pO2 78 L Sodium Potassium Chloride Carbon Dioxide BUN Glucose POC Glucose 194 H 200 H Hemoglobin A1c Lactic Acid Calcium Phosphorus Magnesium Total Bilirubin Direct Bilirubin AST Total Creatine Kinase CK-MB (CK-2) C-Reactive Protein Total Protein Albumin TSH Free T4 04/15/18 04/15/18 04/16/18 17:46 23:57 05:08 WBC Hct MCHC RDW Plt Count Lymph % (Auto) [place] % (Auto) Lymph # [place] # Seg Neutrophils % Seg Neutrophils # POC ABG pH POC ABG pCO2 POC ABG pO2 Sodium Potassium Chloride Carbon Dioxide BUN Glucose POC Glucose 118 H 204 H 221 H Hemoglobin A1c Lactic Acid Calcium Phosphorus Magnesium Total Bilirubin Direct Bilirubin AST Total Creatine Kinase CK-MB (CK-2) C-Reactive Protein Total Protein Albumin TSH Free T4 04/16/18 04/16/18 04/16/18 05:16 12:23 13:07 WBC Hct MCHC RDW Plt Count Lymph % (Auto) [place] % (Auto) Lymph # [place] # Seg Neutrophils % Seg Neutrophils # POC ABG pH 7.456 H POC ABG pCO2 46.7 H POC ABG pO2 Sodium Potassium Chloride Carbon Dioxide BUN Glucose POC Glucose 271 H Hemoglobin A1c Lactic Acid Calcium Phosphorus Magnesium Total Bilirubin Direct Bilirubin AST Total Creatine Kinase CK-MB (CK-2) C-Reactive Protein Total Protein Albumin TSH Free T4 04/16/18 04/17/18 04/17/18 19:14 00:08 05:46 WBC Hct MCHC RDW Plt Count Lymph % (Auto) [place] % (Auto) Lymph # [place] # Seg Neutrophils % Seg Neutrophils # POC ABG pH POC ABG pCO2 POC ABG pO2 Sodium Potassium Chloride Carbon Dioxide BUN Glucose POC Glucose 221 H 238 H 274 H Hemoglobin A1c Lactic Acid Calcium Phosphorus Magnesium Total Bilirubin Direct Bilirubin AST Total Creatine Kinase CK-MB (CK-2) C-Reactive Protein Total Protein Albumin TSH Free T4 04/17/18 04/17/18 04/17/18 13:50 13:59 14:20 WBC Hct MCHC RDW Plt Count Lymph % (Auto) [place] % (Auto) Lymph # [place] # Seg Neutrophils % Seg Neutrophils # POC ABG pH 7.474 H POC ABG pCO2 POC ABG pO2 Sodium Potassium 3.4 L Chloride 93.6 L Carbon Dioxide 33 H BUN Glucose 305 H POC Glucose 315 H Hemoglobin A1c Lactic Acid Calcium Phosphorus Magnesium Total Bilirubin Direct Bilirubin AST Total Creatine Kinase CK-MB (CK-2) C-Reactive Protein Total Protein Albumin TSH Free T4 04/17/18 04/17/18 04/18/18 17:04 23:26 04:20 WBC Hct MCHC RDW Plt Count Lymph % (Auto) [place] % (Auto) Lymph # [place] # Seg Neutrophils % Seg Neutrophils # POC ABG pH 7.473 H POC ABG pCO2 POC ABG pO2 Sodium Potassium Chloride Carbon Dioxide BUN Glucose POC Glucose 280 H 284 H Hemoglobin A1c Lactic Acid Calcium Phosphorus Magnesium Total Bilirubin Direct Bilirubin AST Total Creatine Kinase CK-MB (CK-2) C-Reactive Protein Total Protein Albumin TSH Free T4 04/18/18 04/18/18 04/18/18 05:14 08:32 11:00 WBC Hct MCHC RDW Plt Count Lymph % (Auto) [place] % (Auto) Lymph # [place] # Seg Neutrophils % Seg Neutrophils # POC ABG pH POC ABG pCO2 POC ABG pO2 Sodium Potassium Chloride Carbon Dioxide BUN Glucose POC Glucose 286 H 296 H Hemoglobin A1c Lactic Acid Calcium Phosphorus Magnesium Total Bilirubin Direct Bilirubin 0.3 H AST 87 H Total Creatine Kinase CK-MB (CK-2) C-Reactive Protein Total Protein Albumin 3.7 L TSH Free T4 0204/18/18 04/19/18 12:03 18:15 00:08 WBC Hct MCHC RDW Plt Count Lymph % (Auto) [place] % (Auto) Lymph # [place] # Seg Neutrophils % Seg Neutrophils # POC ABG pH POC ABG pCO2 POC ABG pO2 Sodium Potassium Chloride Carbon Dioxide BUN Glucose POC Glucose 353 H 327 H 331 H Hemoglobin A1c Lactic Acid Calcium Phosphorus Magnesium Total Bilirubin Direct Bilirubin AST Total Creatine Kinase CK-MB (CK-2) C-Reactive Protein Total Protein Albumin TSH Free T4 04/19/18 04/19/18 04/19/18 04:46 05:26 11:48 WBC Hct MCHC RDW Plt Count Lymph % (Auto) [place] % (Auto) Lymph # [place] # Seg Neutrophils % Seg Neutrophils # POC ABG pH 7.497 H POC ABG pCO2 POC ABG pO2 119 H Sodium Potassium Chloride Carbon Dioxide BUN Glucose POC Glucose 323 H 266 H Hemoglobin A1c Lactic Acid Calcium Phosphorus Magnesium Total Bilirubin Direct Bilirubin AST Total Creatine Kinase CK-MB (CK-2) C-Reactive Protein Total Protein Albumin TSH Free T4 04/19/18 04/19/18 04/20/18 17:52 23:37 00:07 WBC Hct MCHC RDW Plt Count Lymph % (Auto) [place] % (Auto) Lymph # [place] # Seg Neutrophils % Seg Neutrophils # POC ABG pH POC ABG pCO2 POC ABG pO2 Sodium Potassium Chloride Carbon Dioxide BUN Glucose POC Glucose 284 H 285 H 312 H Hemoglobin A1c Lactic Acid Calcium Phosphorus Magnesium Total Bilirubin Direct Bilirubin AST Total Creatine Kinase CK-MB (CK-2) C-Reactive Protein Total Protein Albumin TSH Free T4 04/20/18 04/20/18 04/20/18 04:09 04:09 04:37 WBC Hct 34.7 L MCHC 35 H RDW Plt Count Lymph % (Auto) [place] % (Auto) Lymph # [place] # Seg Neutrophils % Seg Neutrophils # POC ABG pH POC ABG pCO2 POC ABG pO2 Sodium Potassium 3.5 L Chloride 95.7 L Carbon Dioxide 34 H BUN Glucose 286 H POC Glucose 267 H Hemoglobin A1c Lactic Acid Calcium Phosphorus Magnesium Total Bilirubin Direct Bilirubin AST Total Creatine Kinase CK-MB (CK-2) C-Reactive Protein Total Protein Albumin TSH Free T4 04/20/18 04/20/18 04/20/18 12:32 17:54 21:07 WBC Hct MCHC RDW Plt Count Lymph % (Auto) [place] % (Auto) Lymph # [place] # Seg Neutrophils % Seg Neutrophils # POC ABG pH POC ABG pCO2 POC ABG pO2 Sodium Potassium Chloride Carbon Dioxide BUN Glucose POC Glucose 220 H 298 H 187 H Hemoglobin A1c Lactic Acid Calcium Phosphorus Magnesium Total Bilirubin Direct Bilirubin AST Total Creatine Kinase CK-MB (CK-2) C-Reactive Protein Total Protein Albumin TSH Free T4 04/21/18 04/21/18 04/21/18 00:04 05:00 05:41 WBC Hct MCHC RDW Plt Count Lymph % (Auto) [place] % (Auto) Lymph # [place] # Seg Neutrophils % Seg Neutrophils # POC ABG pH POC ABG pCO2 POC ABG pO2 Sodium Potassium Chloride 95.2 L Carbon Dioxide 34 H BUN Glucose 179 H POC Glucose 183 H 166 H Hemoglobin A1c Lactic Acid Calcium Phosphorus Magnesium Total Bilirubin Direct Bilirubin AST Total Creatine Kinase CK-MB (CK-2) C-Reactive Protein Total Protein Albumin TSH Free T4 04/21/18 04/21/18 04/21/18 11:55 18:09 23:36 WBC Hct MCHC RDW Plt Count Lymph % (Auto) [place] % (Auto) Lymph # [place] # Seg Neutrophils % Seg Neutrophils # POC ABG pH POC ABG pCO2 POC ABG pO2 Sodium Potassium Chloride Carbon Dioxide BUN Glucose POC Glucose 219 H 247 H 229 H Hemoglobin A1c Lactic Acid Calcium Phosphorus Magnesium Total Bilirubin Direct Bilirubin AST Total Creatine Kinase CK-MB (CK-2) C-Reactive Protein Total Protein Albumin TSH Free T4 04/22/18 04/22/18 04/22/18 04:07 04:07 05:08 WBC Hct MCHC 35 H RDW 15.3 H Plt Count Lymph % (Auto) [place] % (Auto) Lymph # [place] # Seg Neutrophils % Seg Neutrophils # POC ABG pH POC ABG pCO2 POC ABG pO2 Sodium Potassium Chloride 97.4 L Carbon Dioxide 31 H BUN Glucose 177 H POC Glucose 200 H Hemoglobin A1c Lactic Acid Calcium Phosphorus Magnesium Total Bilirubin Direct Bilirubin AST Total Creatine Kinase CK-MB (CK-2) C-Reactive Protein Total Protein Albumin TSH Free T4 04/22/18 04/22/18 04/23/18 12:15 18:04 04:55 WBC Hct MCHC RDW Plt Count Lymph % (Auto) [place] % (Auto) Lymph # [place] # Seg Neutrophils % Seg Neutrophils # POC ABG pH POC ABG pCO2 POC ABG pO2 Sodium Potassium Chloride Carbon Dioxide BUN 23 H Glucose 274 H POC Glucose 189 H 191 H Hemoglobin A1c Lactic Acid Calcium Phosphorus Magnesium Total Bilirubin Direct Bilirubin AST Total Creatine Kinase CK-MB (CK-2) C-Reactive Protein Total Protein Albumin TSH Free T4 04/23/18 04/23/18 04/23/18 05:21 11:06 17:46 WBC Hct MCHC RDW Plt Count Lymph % (Auto) [place] % (Auto) Lymph # [place] # Seg Neutrophils % Seg Neutrophils # POC ABG pH POC ABG pCO2 POC ABG pO2 Sodium Potassium Chloride Carbon Dioxide BUN Glucose POC Glucose 143 H 176 H 142 H Hemoglobin A1c Lactic Acid Calcium Phosphorus Magnesium Total Bilirubin Direct Bilirubin AST Total Creatine Kinase CK-MB (CK-2) C-Reactive Protein Total Protein Albumin TSH Free T4 04/23/18 04/24/18 04/24/18 23:35 06:02 11:37 WBC Hct MCHC RDW Plt Count Lymph % (Auto) [place] % (Auto) Lymph # [place] # Seg Neutrophils % Seg Neutrophils # POC ABG pH POC ABG pCO2 POC ABG pO2 Sodium Potassium Chloride Carbon Dioxide BUN Glucose POC Glucose 127 H 175 H 188 H Hemoglobin A1c Lactic Acid Calcium Phosphorus Magnesium Total Bilirubin Direct Bilirubin AST Total Creatine Kinase CK-MB (CK-2) C-Reactive Protein Total Protein Albumin TSH Free T4 04/24/18 04/24/18 04/24/18 16:50 18:40 20:23 WBC Hct MCHC RDW Plt Count Lymph % (Auto) [place] % (Auto) Lymph # [place] # Seg Neutrophils % Seg Neutrophils # POC ABG pH POC ABG pCO2 POC ABG pO2 Sodium Potassium Chloride Carbon Dioxide BUN Glucose POC Glucose 134 H 148 H Hemoglobin A1c Lactic Acid Calcium Phosphorus Magnesium Total Bilirubin Direct Bilirubin AST Total Creatine Kinase CK-MB (CK-2) C-Reactive Protein Total Protein Albumin TSH 47.760 H Free T4 0.10 L 04/24/18 04/25/18 04/25/18 23:14 05:22 05:22 WBC Hct MCHC 35 H RDW 15.4 H Plt Count Lymph % (Auto) [place] % (Auto) Lymph # [place] # Seg Neutrophils % Seg Neutrophils # POC ABG pH POC ABG pCO2 POC ABG pO2 Sodium 136 L Potassium Chloride 95.0 L Carbon Dioxide BUN Glucose 210 H POC Glucose 145 H Hemoglobin A1c Lactic Acid Calcium Phosphorus Magnesium Total Bilirubin Direct Bilirubin AST Total Creatine Kinase CK-MB (CK-2) C-Reactive Protein Total Protein Albumin TSH Free T4 04/25/18 05:44 WBC Hct MCHC RDW Plt Count Lymph % (Auto) [place] % (Auto) Lymph # [place] # Seg Neutrophils % Seg Neutrophils # POC ABG pH POC ABG pCO2 POC ABG pO2 Sodium Potassium Chloride Carbon Dioxide BUN Glucose POC Glucose 176 H Hemoglobin A1c Lactic Acid Calcium Phosphorus Magnesium Total Bilirubin Direct Bilirubin AST Total Creatine Kinase CK-MB (CK-2) C-Reactive Protein Total Protein Albumin TSH Free T4 Chest x-ray: other (none today) Allied health notes reviewed: nursing
[2018-04-25] MEDS: SYNTHROID IV SCH (14:00)
[2018-04-25] MEDS ORDERED: PROVENTIL IH PRN (14:51)
[2018-04-26] MEDS: HumaLOG SUB-Q SCH ×5 (01:32→23:41)
[2018-04-26] MEDS: APRESOLINE PO SCH ×3 (06:30→22:30)
[2018-04-26] MEDS: SYNTHROID IV SCH (06:30)
--- NOTE | 2018-04-26 10:17 | Event Note ---
Date: 04/26/18 Pt scheduled for bedside trach/PEG on 04/30 at 1:30pm.
[2018-04-26] MEDS: LANTUS SUB-Q SCH (11:09)
[2018-04-26] MEDS: HumuLIN R SUB-Q SCH ×3 (11:10→22:00)
[2018-04-26] MEDS: LOVENOX SUB-Q SCH (11:11)
[2018-04-26] MEDS: NORVASC FEEDTUBE SCH (11:13)
[2018-04-26] MEDS: KEPPRA PO SCH ×2 (11:14→22:30)
[2018-04-26] MEDS: SODIUM CHLORIDE FLUSH SYRINGE 10 ML IV SCH ×3 (11:15→23:43)
[2018-04-26] MEDS: PEPCID PO SCH ×2 (11:18→22:30)
[2018-04-26] MEDS: PROVIGIL PO SCH (13:24)
--- NOTE | 2018-04-26 13:24 | Progress Note ---
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) Diabetes Type II Rhabdomyolysis Obesity HTN Possible JOE Hyponatremia (mild) Hypomagnesemia leucocytosis (AMS remains rate limiting step to safe extubation at this point) - continue IV thyroxine at 75 mcg daily (transition to oral at 100 mics daily) - awaiting tracheostomy - continue daytime PSV trials as tolerated - prn CXR's & ABG's at this point - follow clinically of AB's s/p empiric therapy (ID input appreciated) - continue to wean supplemental oxygen to keep O2 sats > 90% - continue bronchodilators with pulmonary hygiene per RT - VAP bundle addressed - continue daily SAT's - titrate sedatives for RASS 0 to -1 (on hold re: AMS) - neurology evaluation ongoing - PICC line pulled - GI & VTE prophylaxis - trend CpK level - continue IVF fluids re: Rhabdo - replace electrolytes - continue AED's (Keppra) - continue pertinent home med's - continue enteral nutrition as tolerated - continue accuchecks q6h with glycemic control per SSI for target BG 140-180 mg/dL - will likely need outpatient PSG to evaluate JOE - continue other care per attending / other hospice care consultant's ....... care plan discussed at length with his eldest son in the room and all his questions were answered; he will benefit from a Tracheostomy with AMS issues currently CODE STATUS: FULL CODE The high probability of a clinically significant, sudden or life-threatening deterioration of the [cardiac, neurology] system(s) required my full and direct attention, intervention and personal management. The aggregate critical care time was [31] minutes without overlap. Time includes spent on; [x] Data Review and interpretation [x] Patient assessment and monitoring of vital signs [x] Documentation [x] Medication orders and management Subjective Date of service: 04/26/18 Principal diagnosis: Ac Hypoxemic Resp Failure; Seizures; Encephalopathy; DM II; Rhabdomyolysis Interval history: Patient is seen today for: Acute Hypoxemic Respiratory Failure; New Onset Seizures (presumed secondary to Hypoglycemia); Acute Encephalopathy (Toxic - Metabolic); Diabetes Type II; Rhabdomyolysis Seen and examined at bedside; 24hour events reviewed; nursing and respiratory care staff consulted; no adverse overnight events reported to me; resting peacefully in bed; AMS is persistent; awaiting tracheostomy; no seizures; no emesis or overt aspiration Objective Vital Signs - 12hr 04/26/18 04/26/18 04/26/18 02:00 03:00 03:14 Temperature Pulse Rate 73 72 77 Respiratory 19 16 Rate Blood Pressure 93/66 108/63 108/63 O2 Sat by Pulse 100 100 100 Oximetry 04/26/18 04/26/18 04/26/18 03:20 04:00 05:00 Temperature 99.2 F Pulse Rate 70 72 Respiratory 17 17 Rate Blood Pressure 120/66 118/65 O2 Sat by Pulse 100 99 Oximetry 04/26/18 04/26/18 04/26/18 05:10 06:00 06:30 Temperature 98.8 F Pulse Rate 68 78 Respiratory 14 Rate Blood Pressure 114/62 111/74 O2 Sat by Pulse 100 Oximetry 04/26/18 04/26/18 04/26/18 07:00 07:41 07:44 Temperature Pulse Rate 80 73 72 Respiratory 11 L Rate Blood Pressure 120/69 100/59 100/59 O2 Sat by Pulse 100 99 99 Oximetry 04/26/18 04/26/18 04/26/18 08:00 09:00 10:00 Temperature 98.8 F Pulse Rate 69 80 62 Respiratory 18 19 19 Rate Blood Pressure 109/62 120/70 114/63 O2 Sat by Pulse 100 100 100 Oximetry 04/26/18 04/26/18 04/26/18 11:00 11:13 12:06 Temperature Pulse Rate 74 85 Respiratory 16 Rate Blood Pressure 116/68 116/68 123/76 O2 Sat by Pulse 100 99 Oximetry Constitutional: no acute distress, other (Elderly looking AAM, normocephalic and atraumatic with mildly increased respiratory effort on MVS) Eyes: non-icteric ENT: oropharynx moist, other (ETT 23 cm STEPHANIE) Neck: supple, no lymphadenopathy, no JVD, other (large neck circumference) Effort: mildly labored Ascultation: Bilateral: diminished breath sounds, rhonchi Percussion: Bilateral: not dull Cardiovascular: regular rate and rhythm Gastrointestinal: normoactive bowel sounds, soft, non-tender, non-distended, other (protuberant) Integumentary: normal Extremities: no cyanosis, no edema, pulses normal, no ischemia or petechiae Neurologic: non-focal exam (grossly), unable to assess, other (opens eyes spontaneously, not following my prompts) Psychiatric: other (unable to assess) CBC and BMP: 04/25/18 05:22 04/25/18 05:22 ABG, PT/INR, D-dimer: ABG POC ABG pH 7.471 (7.35-7.45) H 04/25/18 13:06 POC ABG pCO2 43.5 (35-45) 04/25/18 13:06 POC ABG pO2 115 (80-105) H 04/25/18 13:06 POC ABG HCO3 31.7 04/25/18 13:06 POC ABG Total CO2 33 04/25/18 13:06 POC ABG O2 Sat 99 04/25/18 13:06 Abnormal lab findings: Abnormal Labs 04/09/18 04/09/18 04/09/18 23:16 23:16 23:16 WBC 13.6 H Hct MCHC RDW Plt Count Lymph % (Auto) 9.4 L [place] % (Auto) Lymph # [place] # Seg Neutrophils % 87.3 H Seg Neutrophils # 11.9 H POC ABG pH POC ABG pCO2 POC ABG pO2 Sodium 132 L Potassium Chloride 92.7 L Carbon Dioxide BUN Glucose 143 H POC Glucose Hemoglobin A1c Lactic Acid 2.10 H* Calcium Phosphorus Magnesium Total Bilirubin 2.20 H Direct Bilirubin AST 107 H Total Creatine Kinase CK-MB (CK-2) C-Reactive Protein Total Protein Albumin TSH Free T4 04/10/18 04/10/18 04/10/18 00:38 00:55 01:13 WBC Hct MCHC RDW Plt Count Lymph % (Auto) [place] % (Auto) Lymph # [place] # Seg Neutrophils % Seg Neutrophils # POC ABG pH POC ABG pCO2 POC ABG pO2 Sodium Potassium Chloride Carbon Dioxide BUN Glucose POC Glucose 117 H 121 H Hemoglobin A1c Lactic Acid 2.10 H* Calcium Phosphorus Magnesium Total Bilirubin Direct Bilirubin AST Total Creatine Kinase CK-MB (CK-2) C-Reactive Protein Total Protein Albumin TSH Free T4 04/10/18 04/10/18 04/10/18 02:10 03:51 04:07 WBC 14.0 H Hct MCHC RDW Plt Count Lymph % (Auto) 7.5 L [place] % (Auto) Lymph # 1.1 L [place] # 1.0 H Seg Neutrophils % 84.9 H Seg Neutrophils # 11.8 H POC ABG pH POC ABG pCO2 POC ABG pO2 Sodium Potassium Chloride Carbon Dioxide BUN Glucose POC Glucose 153 H 158 H Hemoglobin A1c Lactic Acid Calcium Phosphorus Magnesium Total Bilirubin Direct Bilirubin AST Total Creatine Kinase CK-MB (CK-2) C-Reactive Protein Total Protein Albumin TSH Free T4 04/10/18 04/10/18 04/10/18 04:07 06:56 09:48 WBC Hct MCHC RDW Plt Count Lymph % (Auto) [place] % (Auto) Lymph # [place] # Seg Neutrophils % Seg Neutrophils # POC ABG pH POC ABG pCO2 POC ABG pO2 Sodium 130 L Potassium Chloride 93.4 L Carbon Dioxide BUN Glucose 180 H POC Glucose 251 H 245 H Hemoglobin A1c Lactic Acid Calcium 7.9 L D Phosphorus Magnesium Total Bilirubin Direct Bilirubin AST Total Creatine Kinase 7857 H CK-MB (CK-2) 34.3 H C-Reactive Protein Total Protein Albumin TSH Free T4 04/10/18 04/10/18 04/10/18 10:37 12:44 17:31 WBC Hct MCHC RDW Plt Count Lymph % (Auto) [place] % (Auto) Lymph # [place] # Seg Neutrophils % Seg Neutrophils # POC ABG pH POC ABG pCO2 45.6 H POC ABG pO2 374 H Sodium Potassium Chloride Carbon Dioxide BUN Glucose POC Glucose 348 H Hemoglobin A1c Lactic Acid Calcium Phosphorus Magnesium Total Bilirubin Direct Bilirubin AST Total Creatine Kinase 9880 H CK-MB (CK-2) 30.0 H C-Reactive Protein Total Protein Albumin TSH Free T4 04/10/18 04/11/18 04/11/18 23:36 03:52 04:28 WBC 12.2 H Hct MCHC RDW Plt Count 132 L Lymph % (Auto) [place] % (Auto) 10.2 H Lymph # [place] # 1.2 H Seg Neutrophils % 75.1 H Seg Neutrophils # 9.1 H POC ABG pH 7.495 H POC ABG pCO2 32.4 L POC ABG pO2 Sodium Potassium Chloride Carbon Dioxide BUN Glucose POC Glucose 148 H Hemoglobin A1c Lactic Acid Calcium Phosphorus Magnesium Total Bilirubin Direct Bilirubin AST Total Creatine Kinase CK-MB (CK-2) C-Reactive Protein Total Protein Albumin TSH Free T4 04/11/18 04/11/18 04/11/18 04:28 04:28 05:22 WBC Hct MCHC RDW Plt Count Lymph % (Auto) [place] % (Auto) Lymph # [place] # Seg Neutrophils % Seg Neutrophils # POC ABG pH POC ABG pCO2 POC ABG pO2 Sodium 133 L Potassium 3.5 L Chloride 95.1 L Carbon Dioxide BUN 7 L Glucose 206 H POC Glucose 178 H Hemoglobin A1c 6.4 H Lactic Acid Calcium 7.7 L Phosphorus 1.80 L Magnesium 1.50 L Total Bilirubin 4.10 H Direct Bilirubin AST 168 H Total Creatine Kinase 9352 H CK-MB (CK-2) C-Reactive Protein Total Protein Albumin 3.4 L TSH Free T4 04/11/18 04/11/18 04/11/18 11:28 13:43 17:30 WBC Hct MCHC RDW Plt Count Lymph % (Auto) [place] % (Auto) Lymph # [place] # Seg Neutrophils % Seg Neutrophils # POC ABG pH POC ABG pCO2 POC ABG pO2 Sodium Potassium Chloride Carbon Dioxide BUN Glucose POC Glucose 196 H 142 H Hemoglobin A1c Lactic Acid Calcium Phosphorus Magnesium Total Bilirubin Direct Bilirubin AST Total Creatine Kinase CK-MB (CK-2) C-Reactive Protein 7.20 H Total Protein Albumin TSH Free T4 04/11/18 04/11/18 04/12/18 18:59 23:23 04:00 WBC Hct MCHC RDW Plt Count Lymph % (Auto) [place] % (Auto) Lymph # [place] # Seg Neutrophils % Seg Neutrophils # POC ABG pH 7.489 H POC ABG pCO2 34.5 L POC ABG pO2 Sodium Potassium 3.3 L Chloride Carbon Dioxide BUN 6 L Glucose 151 H POC Glucose 129 H Hemoglobin A1c Lactic Acid Calcium 7.3 L Phosphorus 2.00 L Magnesium Total Bilirubin 2.80 H Direct Bilirubin AST 121 H Total Creatine Kinase 5177 H CK-MB (CK-2) C-Reactive Protein Total Protein 5.9 L Albumin 3.1 L TSH Free T4 04/12/18 04/12/18 04/12/18 04:00 04:04 05:21 WBC Hct 34.9 L MCHC 35 H RDW Plt Count 128 L Lymph % (Auto) [place] % (Auto) 10.6 H Lymph # [place] # 0.9 H Seg Neutrophils % Seg Neutrophils # POC ABG pH 7.454 H POC ABG pCO2 POC ABG pO2 Sodium Potassium Chloride Carbon Dioxide BUN Glucose POC Glucose 136 H Hemoglobin A1c Lactic Acid Calcium Phosphorus Magnesium Total Bilirubin Direct Bilirubin AST Total Creatine Kinase CK-MB (CK-2) C-Reactive Protein Total Protein Albumin TSH Free T4 04/12/18 04/13/18 04/13/18 11:23 00:21 04:57 WBC Hct MCHC RDW Plt Count Lymph % (Auto) [place] % (Auto) Lymph # [place] # Seg Neutrophils % Seg Neutrophils # POC ABG pH POC ABG pCO2 34.7 L POC ABG pO2 125 H Sodium Potassium Chloride Carbon Dioxide BUN Glucose POC Glucose 166 H 143 H Hemoglobin A1c Lactic Acid Calcium Phosphorus Magnesium Total Bilirubin Direct Bilirubin AST Total Creatine Kinase CK-MB (CK-2) C-Reactive Protein Total Protein Albumin TSH Free T4 04/13/18 04/13/18 04/13/18 05:02 05:02 12:16 WBC Hct MCHC RDW Plt Count Lymph % (Auto) [place] % (Auto) Lymph # [place] # Seg Neutrophils % Seg Neutrophils # POC ABG pH POC ABG pCO2 POC ABG pO2 Sodium Potassium Chloride Carbon Dioxide BUN Glucose POC Glucose 161 H 170 H Hemoglobin A1c Lactic Acid Calcium Phosphorus Magnesium Total Bilirubin Direct Bilirubin AST Total Creatine Kinase 3456 H CK-MB (CK-2) C-Reactive Protein Total Protein Albumin TSH Free T4 04/13/18 04/13/18 04/14/18 18:52 23:09 04:35 WBC Hct MCHC RDW Plt Count Lymph % (Auto) [place] % (Auto) Lymph # [place] # Seg Neutrophils % Seg Neutrophils # POC ABG pH 7.467 H POC ABG pCO2 POC ABG pO2 Sodium Potassium Chloride Carbon Dioxide BUN Glucose POC Glucose 196 H 219 H Hemoglobin A1c Lactic Acid Calcium Phosphorus Magnesium Total Bilirubin Direct Bilirubin AST Total Creatine Kinase CK-MB (CK-2) C-Reactive Protein Total Protein Albumin TSH Free T4 04/14/18 04/14/18 04/14/18 05:00 05:26 11:20 WBC Hct MCHC RDW Plt Count Lymph % (Auto) [place] % (Auto) Lymph # [place] # Seg Neutrophils % Seg Neutrophils # POC ABG pH POC ABG pCO2 POC ABG pO2 Sodium Potassium Chloride Carbon Dioxide BUN Glucose POC Glucose 249 H 260 H Hemoglobin A1c Lactic Acid Calcium Phosphorus Magnesium Total Bilirubin Direct Bilirubin AST Total Creatine Kinase 2247 H CK-MB (CK-2) C-Reactive Protein Total Protein Albumin TSH Free T4 04/14/18 04/14/18 04/14/18 17:04 17:51 23:53 WBC Hct MCHC RDW Plt Count Lymph % (Auto) [place] % (Auto) Lymph # [place] # Seg Neutrophils % Seg Neutrophils # POC ABG pH POC ABG pCO2 POC ABG pO2 79 L Sodium Potassium Chloride Carbon Dioxide BUN Glucose POC Glucose 284 H 203 H Hemoglobin A1c Lactic Acid Calcium Phosphorus Magnesium Total Bilirubin Direct Bilirubin AST Total Creatine Kinase CK-MB (CK-2) C-Reactive Protein Total Protein Albumin TSH Free T4 04/15/18 04/15/18 04/15/18 04:24 05:26 12:56 WBC Hct MCHC RDW Plt Count Lymph % (Auto) [place] % (Auto) Lymph # [place] # Seg Neutrophils % Seg Neutrophils # POC ABG pH POC ABG pCO2 45.4 H POC ABG pO2 78 L Sodium Potassium Chloride Carbon Dioxide BUN Glucose POC Glucose 194 H 200 H Hemoglobin A1c Lactic Acid Calcium Phosphorus Magnesium Total Bilirubin Direct Bilirubin AST Total Creatine Kinase CK-MB (CK-2) C-Reactive Protein Total Protein Albumin TSH Free T4 04/15/18 04/15/18 04/16/18 17:46 23:57 05:08 WBC Hct MCHC RDW Plt Count Lymph % (Auto) [place] % (Auto) Lymph # [place] # Seg Neutrophils % Seg Neutrophils # POC ABG pH POC ABG pCO2 POC ABG pO2 Sodium Potassium Chloride Carbon Dioxide BUN Glucose POC Glucose 118 H 204 H 221 H Hemoglobin A1c Lactic Acid Calcium Phosphorus Magnesium Total Bilirubin Direct Bilirubin AST Total Creatine Kinase CK-MB (CK-2) C-Reactive Protein Total Protein Albumin TSH Free T4 04/16/18 04/16/18 04/16/18 05:16 12:23 13:07 WBC Hct MCHC RDW Plt Count Lymph % (Auto) [place] % (Auto) Lymph # [place] # Seg Neutrophils % Seg Neutrophils # POC ABG pH 7.456 H POC ABG pCO2 46.7 H POC ABG pO2 Sodium Potassium Chloride Carbon Dioxide BUN Glucose POC Glucose 271 H Hemoglobin A1c Lactic Acid Calcium Phosphorus Magnesium Total Bilirubin Direct Bilirubin AST Total Creatine Kinase CK-MB (CK-2) C-Reactive Protein Total Protein Albumin TSH Free T4 04/16/18 04/17/18 04/17/18 19:14 00:08 05:46 WBC Hct MCHC RDW Plt Count Lymph % (Auto) [place] % (Auto) Lymph # [place] # Seg Neutrophils % Seg Neutrophils # POC ABG pH POC ABG pCO2 POC ABG pO2 Sodium Potassium Chloride Carbon Dioxide BUN Glucose POC Glucose 221 H 238 H 274 H Hemoglobin A1c Lactic Acid Calcium Phosphorus Magnesium Total Bilirubin Direct Bilirubin AST Total Creatine Kinase CK-MB (CK-2) C-Reactive Protein Total Protein Albumin TSH Free T4 04/17/18 04/17/18 04/17/18 13:50 13:59 14:20 WBC Hct MCHC RDW Plt Count Lymph % (Auto) [place] % (Auto) Lymph # [place] # Seg Neutrophils % Seg Neutrophils # POC ABG pH 7.474 H POC ABG pCO2 POC ABG pO2 Sodium Potassium 3.4 L Chloride 93.6 L Carbon Dioxide 33 H BUN Glucose 305 H POC Glucose 315 H Hemoglobin A1c Lactic Acid Calcium Phosphorus Magnesium Total Bilirubin Direct Bilirubin AST Total Creatine Kinase CK-MB (CK-2) C-Reactive Protein Total Protein Albumin TSH Free T4 04/17/18 04/17/18 04/18/18 17:04 23:26 04:20 WBC Hct MCHC RDW Plt Count Lymph % (Auto) [place] % (Auto) Lymph # [place] # Seg Neutrophils % Seg Neutrophils # POC ABG pH 7.473 H POC ABG pCO2 POC ABG pO2 Sodium Potassium Chloride Carbon Dioxide BUN Glucose POC Glucose 280 H 284 H Hemoglobin A1c Lactic Acid Calcium Phosphorus Magnesium Total Bilirubin Direct Bilirubin AST Total Creatine Kinase CK-MB (CK-2) C-Reactive Protein Total Protein Albumin TSH Free T4 04/18/18 04/18/18 04/18/18 05:14 08:32 11:00 WBC Hct MCHC RDW Plt Count Lymph % (Auto) [place] % (Auto) Lymph # [place] # Seg Neutrophils % Seg Neutrophils # POC ABG pH POC ABG pCO2 POC ABG pO2 Sodium Potassium Chloride Carbon Dioxide BUN Glucose POC Glucose 286 H 296 H Hemoglobin A1c Lactic Acid Calcium Phosphorus Magnesium Total Bilirubin Direct Bilirubin 0.3 H AST 87 H Total Creatine Kinase CK-MB (CK-2) C-Reactive Protein Total Protein Albumin 3.7 L TSH Free T4 04/18/18 04/18/18 04/19/18 12:03 18:15 00:08 WBC Hct MCHC RDW Plt Count Lymph % (Auto) [place] % (Auto) Lymph # [place] # Seg Neutrophils % Seg Neutrophils # POC ABG pH POC ABG pCO2 POC ABG pO2 Sodium Potassium Chloride Carbon Dioxide BUN Glucose POC Glucose 353 H 327 H 331 H Hemoglobin A1c Lactic Acid Calcium Phosphorus Magnesium Total Bilirubin Direct Bilirubin AST Total Creatine Kinase CK-MB (CK-2) C-Reactive Protein Total Protein Albumin TSH Free T4 04/19/18 04/19/18 04/19/18 04:46 05:26 11:48 WBC Hct MCHC RDW Plt Count Lymph % (Auto) [place] % (Auto) Lymph # [place] # Seg Neutrophils % Seg Neutrophils # POC ABG pH 7.497 H POC ABG pCO2 POC ABG pO2 119 H Sodium Potassium Chloride Carbon Dioxide BUN Glucose POC Glucose 323 H 266 H Hemoglobin A1c Lactic Acid Calcium Phosphorus Magnesium Total Bilirubin Direct Bilirubin AST Total Creatine Kinase CK-MB (CK-2) C-Reactive Protein Total Protein Albumin TSH Free T4 04/19/18 04/19/18 04/20/18 17:52 23:37 00:07 WBC Hct MCHC RDW Plt Count Lymph % (Auto) [place] % (Auto) Lymph # [place] # Seg Neutrophils % Seg Neutrophils # POC ABG pH POC ABG pCO2 POC ABG pO2 Sodium Potassium Chloride Carbon Dioxide BUN Glucose POC Glucose 284 H 285 H 312 H Hemoglobin A1c Lactic Acid Calcium Phosphorus Magnesium Total Bilirubin Direct Bilirubin AST Total Creatine Kinase CK-MB (CK-2) C-Reactive Protein Total Protein Albumin TSH Free T4 04/20/18 04/20/18 04/20/18 04:09 04:09 04:37 WBC Hct 34.7 L MCHC 35 H RDW Plt Count Lymph % (Auto) [place] % (Auto) Lymph # [place] # Seg Neutrophils % Seg Neutrophils # POC ABG pH POC ABG pCO2 POC ABG pO2 Sodium Potassium 3.5 L Chloride 95.7 L Carbon Dioxide 34 H BUN Glucose 286 H POC Glucose 267 H Hemoglobin A1c Lactic Acid Calcium Phosphorus Magnesium Total Bilirubin Direct Bilirubin AST Total Creatine Kinase CK-MB (CK-2) C-Reactive Protein Total Protein Albumin TSH Free T4 04/20/18 04/20/18 04/20/18 12:32 17:54 21:07 WBC Hct MCHC RDW Plt Count Lymph % (Auto) [place] % (Auto) Lymph # [place] # Seg Neutrophils % Seg Neutrophils # POC ABG pH POC ABG pCO2 POC ABG pO2 Sodium Potassium Chloride Carbon Dioxide BUN Glucose POC Glucose 220 H 298 H 187 H Hemoglobin A1c Lactic Acid Calcium Phosphorus Magnesium Total Bilirubin Direct Bilirubin AST Total Creatine Kinase CK-MB (CK-2) C-Reactive Protein Total Protein Albumin TSH Free T4 04/21/18 04/21/18 04/21/18 00:04 05:00 05:41 WBC Hct MCHC RDW Plt Count Lymph % (Auto) [place] % (Auto) Lymph # [place] # Seg Neutrophils % Seg Neutrophils # POC ABG pH POC ABG pCO2 POC ABG pO2 Sodium Potassium Chloride 95.2 L Carbon Dioxide 34 H BUN Glucose 179 H POC Glucose 183 H 166 H Hemoglobin A1c Lactic Acid Calcium Phosphorus Magnesium Total Bilirubin Direct Bilirubin AST Total Creatine Kinase CK-MB (CK-2) C-Reactive Protein Total Protein Albumin TSH Free T4 04/21/18 04/21/18 04/21/18 11:55 18:09 23:36 WBC Hct MCHC RDW Plt Count Lymph % (Auto) [place] % (Auto) Lymph # [place] # Seg Neutrophils % Seg Neutrophils # POC ABG pH POC ABG pCO2 POC ABG pO2 Sodium Potassium Chloride Carbon Dioxide BUN Glucose POC Glucose 219 H 247 H 229 H Hemoglobin A1c Lactic Acid Calcium Phosphorus Magnesium Total Bilirubin Direct Bilirubin AST Total Creatine Kinase CK-MB (CK-2) C-Reactive Protein Total Protein Albumin TSH Free T4 04/22/18 04/22/18 04/22/18 04:07 04:07 05:08 WBC Hct MCHC 35 H RDW 15.3 H Plt Count Lymph % (Auto) [place] % (Auto) Lymph # [place] # Seg Neutrophils % Seg Neutrophils # POC ABG pH POC ABG pCO2 POC ABG pO2 Sodium Potassium Chloride 97.4 L Carbon Dioxide 31 H BUN Glucose 177 H POC Glucose 200 H Hemoglobin A1c Lactic Acid Calcium Phosphorus Magnesium Total Bilirubin Direct Bilirubin AST Total Creatine Kinase CK-MB (CK-2) C-Reactive Protein Total Protein Albumin TSH Free T4 04/22/18 04/22/18 04/23/18 12:15 18:04 04:55 WBC Hct MCHC RDW Plt Count Lymph % (Auto) [place] % (Auto) Lymph # [place] # Seg Neutrophils % Seg Neutrophils # POC ABG pH POC ABG pCO2 POC ABG pO2 Sodium Potassium Chloride Carbon Dioxide BUN 23 H Glucose 274 H POC Glucose 189 H 191 H Hemoglobin A1c Lactic Acid Calcium Phosphorus Magnesium Total Bilirubin Direct Bilirubin AST Total Creatine Kinase CK-MB (CK-2) C-Reactive Protein Total Protein Albumin TSH Free T4 04/23/18 04/23/18 04/23/18 05:21 11:06 17:46 WBC Hct MCHC RDW Plt Count Lymph % (Auto) [place] % (Auto) Lymph # [place] # Seg Neutrophils % Seg Neutrophils # POC ABG pH POC ABG pCO2 POC ABG pO2 Sodium Potassium Chloride Carbon Dioxide BUN Glucose POC Glucose 143 H 176 H 142 H Hemoglobin A1c Lactic Acid Calcium Phosphorus Magnesium Total Bilirubin Direct Bilirubin AST Total Creatine Kinase CK-MB (CK-2) C-Reactive Protein Total Protein Albumin TSH Free T4 04/23/18 04/24/18 04/24/18 23:35 06:02 11:37 WBC Hct MCHC RDW Plt Count Lymph % (Auto) [place] % (Auto) Lymph # [place] # Seg Neutrophils % Seg Neutrophils # POC ABG pH POC ABG pCO2 POC ABG pO2 Sodium Potassium Chloride Carbon Dioxide BUN Glucose POC Glucose 127 H 175 H 188 H Hemoglobin A1c Lactic Acid Calcium Phosphorus Magnesium Total Bilirubin Direct Bilirubin AST Total Creatine Kinase CK-MB (CK-2) C-Reactive Protein Total Protein Albumin TSH Free T4 04/24/18 04/24/18 04/24/18 16:50 18:40 20:23 WBC Hct MCHC RDW Plt Count Lymph % (Auto) [place] % (Auto) Lymph # [place] # Seg Neutrophils % Seg Neutrophils # POC ABG pH POC ABG pCO2 POC ABG pO2 Sodium Potassium Chloride Carbon Dioxide BUN Glucose POC Glucose 134 H 148 H Hemoglobin A1c Lactic Acid Calcium Phosphorus Magnesium Total Bilirubin Direct Bilirubin AST Total Creatine Kinase CK-MB (CK-2) C-Reactive Protein Total Protein Albumin TSH 47.760 H Free T4 0.10 L 04/24/18 04/25/18 04/25/18 23:14 05:22 05:22 WBC Hct MCHC 35 H RDW 15.4 H Plt Count Lymph % (Auto) [place] % (Auto) Lymph # [place] # Seg Neutrophils % Seg Neutrophils # POC ABG pH POC ABG pCO2 POC ABG pO2 Sodium 136 L Potassium Chloride 95.0 L Carbon Dioxide BUN Glucose 210 H POC Glucose 145 H Hemoglobin A1c Lactic Acid Calcium Phosphorus Magnesium Total Bilirubin Direct Bilirubin AST Total Creatine Kinase CK-MB (CK-2) C-Reactive Protein Total Protein Albumin TSH Free T4 04/25/18 04/25/18 04/25/18 05:44 12:19 13:06 WBC Hct MCHC RDW Plt Count Lymph % (Auto) [place] % (Auto) Lymph # [place] # Seg Neutrophils % Seg Neutrophils # POC ABG pH 7.471 H POC ABG pCO2 POC ABG pO2 115 H Sodium Potassium Chloride Carbon Dioxide BUN Glucose POC Glucose 176 H 231 H Hemoglobin A1c Lactic Acid Calcium Phosphorus Magnesium Total Bilirubin Direct Bilirubin AST Total Creatine Kinase CK-MB (CK-2) C-Reactive Protein Total Protein Albumin TSH Free T4 04/25/18 04/25/18 04/26/18 17:54 20:09 00:01 WBC Hct MCHC RDW Plt Count Lymph % (Auto) [place] % (Auto) Lymph # [place] # Seg Neutrophils % Seg Neutrophils # POC ABG pH POC ABG pCO2 POC ABG pO2 Sodium Potassium Chloride Carbon Dioxide BUN Glucose POC Glucose 196 H 119 H 174 H Hemoglobin A1c Lactic Acid Calcium Phosphorus Magnesium Total Bilirubin Direct Bilirubin AST Total Creatine Kinase CK-MB (CK-2) C-Reactive Protein Total Protein Albumin TSH Free T4 04/26/18 04/26/18 05:10 12:03 WBC Hct MCHC RDW Plt Count Lymph % (Auto) [place] % (Auto) Lymph # [place] # Seg Neutrophils % Seg Neutrophils # POC ABG pH POC ABG pCO2 POC ABG pO2 Sodium Potassium Chloride Carbon Dioxide BUN Glucose POC Glucose 212 H 222 H Hemoglobin A1c Lactic Acid Calcium Phosphorus Magnesium Total Bilirubin Direct Bilirubin AST Total Creatine Kinase CK-MB (CK-2) C-Reactive Protein Total Protein Albumin TSH Free T4 Chest x-ray: report reviewed Allied health notes reviewed: nursing
--- NOTE | 2018-04-26 14:57 | Progress Note ---
Assessment and Plan Assessment and plan: 78-year-old male patient with significant history of hypertension diabetes coronary artery disease was admitted through emergency room with history of unresponsiveness at home for unknown Duration of time. At that time he had hypoglycemia and seizure activity, Patient was unable to protect his airway and was intubated on ventilatory support admitted to ICU also with concern of Aspiration Pneumonia Hospital course -Neuro: Patient had CT scan 2 days does not show acute abnormality. 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 History this is most likely due to hypoglycemia, Now resolved Pulmonary: The patient has been maintained on mechanical ventilator, he's not been able to be weaned off the vent. The family wants to continue aggressive care. If the patient is not able, he will most likely need to be trached and peg FEN; his electrolytes namely potassium and phosphate were repleted ID; the patient received empiric antibiotics for pneumonia, Cultures including blood, urine and sputum has remained without growth. No new fever in the last 48hrs Musculoskeletal; Traumatic Rhabdomyolysis; status post IV fluids and improved, His medications were optimized for his chronic conditions Neuro: Unresponsive CXR: Concerning for Focal RLL infiltrate initially, repeat done 04/23/18 shows no acute pathology. Diagnosis Acute respiratory failure with hypoxia -s/p intubation on MV Greater than 96hr -pulmonology following -will likely need Trach and peg- surgeon consulted 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 Monitor for improvement. Concerning for Mxedema coma. Acute Toxic metabolic encephalopathy Likely secondary to Hypoxic Ischemic Encephalopathy vs hypgolycemic encephalopathy -no significant change in ms -EEG abnormal, awaiting repeat -MRI brain neg -neurology following -Maintain sleep wake cycle - Discussed with Sons and sister extensively, Repeat EEG is pending. Will also obtain neurology re-evaluation. They understand the prognosis is poor. Hypokalemia -resolved s/p repletion, will monitor Severe sepsis 2/2 aspiration PNA -resolved -off antibiotics FOLLOWING TREATMENT WITH ROCEPHIN AND FLAGYL Aspiration Pneumonia -completed antibiotics - No new fever DM II with hyperglycemia - Was hypoglycemic on admission - BG improved - Cont current insulin regimen and adjust as needed Seizure, new onset -probably 2/2 hypoglycemia recorded by EMS staff prior to admission -stable on Keppra -cont seizure precautions Critical Illness Myopathy -cont supportive care Thrombocytopenia -level improved, will monitor Transaminitis -levels improved -Hepatitis panel neg -Abd US neg Rhabdomyolysis -improved Hypophosphatemia -resolved HTN -uncontrolled, meds adjusted Moderate protein calorie malnutrition -on tube feeding -cork wirer following Morbid obesity: Supportive care and counselling when awake DVT/GI prophylaxis with Lovenox and famotidine Poor Prognosis Trach/Peg and possible LTAC eval The high probability of a clinically significant, sudden or life threatening deterioration of the [Neurology, Pulmonary] system(s) required my full and direct attention, intervention and personal management. The aggregate critical care time was [35] minutes. This time is in addition to time spent performing reported procedures but includes the following: [x] Data Review and interpretation [x] Patient assessment and monitoring of vital signs [x] Documentation [x] Medication orders and management History Interval history: Patient seen and examined, Remains unresponsive although still spontaneously opens his eyes. No overnight issues reported. Patient remains off sedation and not responsive. Hospitalist Physical - Physical exam Narrative exam: VITAL SIGNS: Reviewed. GENERAL: The patient appeared well nourished and normally developed. Continues on mechanical ventilation. Ventilatory support- unresponsive. Vital signs as documented. HEAD: No signs of head trauma. EYES: Pupils are equal. Sluggish response to light.. EARS: Unable to assess MOUTH: ET tube in place. NECK: No adenopathy, no JVD. CHEST: Chest with clear breath sounds bilaterally. No wheezes, rales, or rhonchi. CARDIAC: Bradycardia with regular rate. S1 and S2, without murmurs, gallops, or rubs. VASCULAR: No Edema. Peripheral pulses normal and equal in all extremities. ABDOMEN: Soft, without detectable tenderness. No sign of distention. No rebound or guarding, and no masses palpated. Bowel Sounds normal. MUSCULOSKELETAL: Unable to assess. Extremities without clubbing, cyanosis or edema. NEUROLOGIC EXAM: Unresponsive, MOVES EXT. OPENS EYES BUT NOT FOLLOWING COMMAND PSYCHIATRIC: Unable to assess SKIN: No rash or lesions. - Constitutional Vitals: Temp Pulse Resp BP Pulse Ox 98.8 F 82 19 119/69 100 04/26/18 08:00 04/26/18 14:00 04/26/18 14:00 04/26/18 14:00 04/26/18 14:00 General appearance: Present: no acute distress, other (intubated on vent) Results - Labs CBC & Chem 7: 04/25/18 05:22 04/25/18 05:22 Labs: Laboratory Last Values WBC 7.2 K/mm3 (4.5-11.0) 04/25/18 05:22 RBC 4.20 M/mm3 (3.65-5.03) 04/25/18 05:22 Hgb 12.9 gm/dl (11.8-15.2) 04/25/18 05:22 Hct 37.3 % (35.5-45.6) 04/25/18 05:22 MCV 89 fl (84-94) 04/25/18 05:22 MCH 31 pg (28-32) 04/25/18 05:22 MCHC 35 % (32-34) H 04/25/18 05:22 RDW 15.4 % (13.2-15.2) H 04/25/18 05:22 Plt Count 200 K/mm3 (140-440) 04/25/18 05:22 Lymph % (Auto) 21.2 % (13.4-35.0) 04/22/18 04:07 [place] % (Auto) 7.0 % (0.0-7.3) 04/22/18 04:07 Eos % (Auto) 3.5 % (0.0-4.3) 04/22/18 04:07 Baso % (Auto) 0.8 % (0.0-1.8) 04/22/18 04:07 Lymph # 2.0 K/mm3 (1.2-5.4) 04/22/18 04:07 [place] # 0.7 K/mm3 (0.0-0.8) 04/22/18 04:07 Eos # 0.3 K/mm3 (0.0-0.4) 04/22/18 04:07 Baso # 0.1 K/mm3 (0.0-0.1) 04/22/18 04:07 Seg Neutrophils % 67.5 % (40.0-70.0) 04/22/18 04:07 Seg Neutrophils # 6.5 K/mm3 (1.8-7.7) 04/22/18 04:07 APTT 24.8 Sec. (24.2-36.6) 04/09/18 23:16 POC ABG pH 7.471 (7.35-7.45) H 04/25/18 13:06 POC ABG pCO2 43.5 (35-45) 04/25/18 13:06 POC ABG pO2 115 (80-105) H 04/25/18 13:06 POC ABG HCO3 31.7 04/25/18 13:06 POC ABG Total CO2 33 04/25/18 13:06 POC ABG O2 Sat 99 04/25/18 13:06 POC ABG Base Excess 8 04/25/18 13:06 FiO2 30 % 04/25/18 13:06 Sodium 136 mmol/L (137-145) L 04/25/18 05:22 Potassium 4.4 mmol/L (3.6-5.0) 04/25/18 05:22 Chloride 95.0 mmol/L (98-107) L 04/25/18 05:22 Carbon Dioxide 28 mmol/L (22-30) 04/25/18 05:22 Anion Gap 17 mmol/L 04/25/18 05:22 BUN 14 mg/dL (9-20) 04/25/18 05:22 Creatinine 1.0 mg/dL (0.8-1.5) 04/25/18 05:22 Estimated GFR > 60 ml/min 04/25/18 05:22 BUN/Creatinine Ratio 14 % 04/25/18 05:22 Glucose 210 mg/dL (75-100) H 04/25/18 05:22 POC Glucose 222 (70-105) H 04/26/18 12:03 Hemoglobin A1c 6.4 % (4-6) H 04/11/18 04:28 Lactic Acid 1.70 mmol/L (0.7-2.0) 04/10/18 02:47 Calcium 9.3 mg/dL (8.4-10.2) 04/25/18 05:22 Phosphorus 3.60 mg/dL (2.5-4.5) 04/21/18 05:00 Magnesium 2.10 mg/dL (1.7-2.3) 04/21/18 05:00 Total Bilirubin 1.20 mg/dL (0.1-1.2) 04/18/18 11:00 Direct Bilirubin 0.3 mg/dL (0-0.2) H 04/18/18 11:00 Indirect Bilirubin 0.9 mg/dL 04/18/18 11:00 AST 87 units/L (5-40) H 04/18/18 11:00 ALT 39 units/L (7-56) 04/18/18 11:00 Alkaline Phosphatase 59 units/L (35-129) 04/18/18 11:00 Total Creatine Kinase 2247 units/L (55-170) H 04/14/18 05:00 CK-MB (CK-2) 30.0 ng/mL (0.0-4.0) H 04/10/18 10:37 CK-MB (CK-2) Rel Index 0.3 (0-4) 04/10/18 10:37 Troponin T < 0.010 ng/mL (0.00-0.029) 04/10/18 10:37 C-Reactive Protein 7.20 mg/dL (0.00-1.30) H 04/11/18 13:43 Total Protein 6.8 g/dL (6.3-8.2) 04/18/18 11:00 Albumin 3.7 g/dL (3.9-5) L 04/18/18 11:00 Albumin/Globulin Ratio 1.2 % 04/18/18 11:00 Vitamin B12 745.3 pg/mL (211-911) 04/24/18 16:50 TSH 47.760 mlU/mL (0.270-4.200) H 04/24/18 16:50 Free T4 0.10 ng/dL (0.76-1.46) L 04/24/18 16:50 Urine Color Yellow (Yellow) 04/10/18 01:07 Urine Turbidity Clear (Clear) 04/10/18 01:07 Urine pH 5.0 (5.0-7.0) 04/10/18 01:07 Ur Specific [place] 1.019 (1.003-1.030) 04/10/18 01:07 Urine Protein 100 mg/dl mg/dL (Negative) 04/10/18 01:07 Urine Glucose (UA) Neg mg/dL (Negative) 04/10/18 01:07 Urine Ketones Neg mg/dL (Negative) 04/10/18 01:07 Urine Blood Lg (Negative) 04/10/18 01:07 Urine Nitrite Neg (Negative) 04/10/18 01:07 Urine Bilirubin Neg (Negative) 04/10/18 01:07 Urine Urobilinogen < 2.0 mg/dL (<2.0) 04/10/18 01:07 Ur Leukocyte Esterase Neg (Negative) 04/10/18 01:07 Urine WBC (Auto) 1.0 /HPF (0.0-6.0) 04/10/18 01:07 Urine RBC (Auto) 9.0 /HPF (0.0-6.0) 04/10/18 01:07 U Epithel Cells (Auto) < 1.0 /HPF (0-13.0) 04/10/18 01:07 Urine Mucus Few /HPF 04/10/18 01:07 Levetiracetam 25.2 mcg/mL 04/12/18 20:37 Hepatitis A IgM Ab Non-reactive (NonReactive) 04/14/18 14:56 Hep Bs Antigen Non-reactive (Negative) 04/14/18 14:56 Hep B Core IgM Ab Non-reactive (NonReactive) 04/14/18 14:56 Hepatitis C Antibody Non-reactive (NonReactive) 04/14/18 14:56 Influenza A (Rapid) Negative (Negative) 04/11/18 15:08 Influenza B (Rapid) Negative (Negative) 04/11/18 15:08 Nutrition/Malnutrition Assess - Dietary Evaluation Nutrition/Malnutrition Findings: Nutrition Notes Start: 04/11/18 10:20 Freq: Status: Active Protocol: Document 04/25/18 15:33 (Rec: 04/25/18 15:37 [email or web address]) Co-Sign 04/25/18 15:33 LP Nutrition Notes Initial or Follow up Assessment Current Diagnosis Coronary Artery Disease, Diabetes,Hypertension, Respiratory Failure Other Pertinent Diagnosis Pneu, new onset seizures, acute encephalopathy Current Diet Vital AF 1.2 at 50ml/hr Labs/Tests B Pertinent Medications Reviewed Height 5 ft 9 in Weight 91.5 kg [place] Body Weight (kg) 72.72 BMI 29.7 Subjective/Other Information Pt f/u for stable TF. Observed Vital AF 1.2 infusing at 50 ml/hr. Per RN, pt. still tolerating well. Percent of energy/protein needs met: 98%/82% Burn Absent Trauma Absent #1 Nutrition Diagnosis Inadequate oral intake Diagnosis Progress(for reassessment Continues documentation) Is patient on ventilator? Yes Is Patient Ambulatory and/or Out of Bed No REE-([place]-confined to bed) 1956.840 Kcal/Kg value to use for calculation 16 Approximate Energy Requirements Using 1464 kcal/Kg Calculation Used for Recommendations Kcal/kg Additional Notes Protein needs are 110-183g (1. 2-2g/kg) Fluid needs are 1ml/kcal Nutrition Intervention Change Diet Order: Vital AF 1.2 Nutrition Support: Vital 1.2 at 50 mL/hr. Water flush 80 mL q4h. Kcal 1,440 Protein (gm) 90 Carbohydrates (gm) 133 Fluid (mL) 973 Goal #1 Continue to meet at least 80% of kcal and protein needs Anticipated Discharge Needs: Unable to determine at this time Follow-Up By: 05/02/18 Additional Comments Follow for stable TF
[2018-04-27] MEDS: HumaLOG SUB-Q SCH ×5 (00:09→23:45)
[2018-04-27] MEDS: APRESOLINE PO SCH ×3 (05:52→21:51)
[2018-04-27] MEDS: SYNTHROID IV SCH (05:52)
[2018-04-27] MEDS: PEPCID PO SCH ×2 (10:24→21:52)
[2018-04-27] MEDS: KEPPRA PO SCH ×2 (10:24→21:52)
[2018-04-27] MEDS: TRANSDERM-SCOP TD SCH (10:24)
[2018-04-27] MEDS: NORVASC FEEDTUBE SCH (10:24)
[2018-04-27] MEDS: LOVENOX SUB-Q SCH (10:25)
[2018-04-27] MEDS: SODIUM CHLORIDE FLUSH SYRINGE 10 ML IV SCH ×2 (10:25→21:45)
[2018-04-27] MEDS: HumuLIN R SUB-Q SCH ×3 (10:25→19:55)
[2018-04-27] MEDS: LANTUS SUB-Q SCH (10:26)
[2018-04-27] MEDS: PROVIGIL PO SCH (11:03)
--- NOTE | 2018-04-27 12:33 | Progress Note ---
Assessment and Plan Assessment and plan: 78-year-old male patient with significant history of hypertension diabetes coronary artery disease was admitted through emergency room with history of unresponsiveness at home for unknown Duration of time. At that time he had hypoglycemia and seizure activity, Patient was unable to protect his airway and was intubated on ventilatory support admitted to ICU also with concern of Aspiration Pneumonia Hospital course -Neuro: Patient had CT scan 2 days does not show acute abnormality. 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 History this is most likely due to hypoglycemia, Now resolved Pulmonary: The patient has been maintained on mechanical ventilator, he's not been able to be weaned off the vent. The family wants to continue aggressive care. If the patient is not able, he will most likely need to be trached and peg FEN; his electrolytes namely potassium and phosphate were repleted ID; the patient received empiric antibiotics for pneumonia, Cultures including blood, urine and sputum has remained without growth. No new fever in the last 48hrs Musculoskeletal; Traumatic Rhabdomyolysis; status post IV fluids and improved, His medications were optimized for his chronic conditions Neuro: Unresponsive CXR: Concerning for Focal RLL infiltrate initially, repeat done 04/23/18 shows no acute pathology. 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 Monitor for improvement. Concerning for Mxedema coma. Acute Toxic metabolic encephalopathy Likely secondary to Hypoxic Ischemic Encephalopathy vs hypgolycemic encephalopathy -no significant change in ms -EEG abnormal, awaiting repeat -MRI brain neg -neurology following -Maintain sleep wake cycle - Discussed with Sons and sister extensively, Repeat EEG is pending. Will also obtain neurology re-evaluation. They understand the prognosis is poor. Hypokalemia -resolved s/p repletion, will monitor Severe sepsis 2/2 aspiration PNA -resolved -off antibiotics FOLLOWING TREATMENT WITH ROCEPHIN AND FLAGYL Aspiration Pneumonia -completed antibiotics - No new fever DM II with hyperglycemia - Was hypoglycemic on admission - BG improved - Cont current insulin regimen and adjust as needed Seizure, new onset -probably 2/2 hypoglycemia recorded by EMS staff prior to admission -stable on Keppra -cont seizure precautions Critical Illness Myopathy -cont supportive care Thrombocytopenia -level improved, will monitor Transaminitis -levels improved -Hepatitis panel neg -Abd US neg Rhabdomyolysis -improved Hypophosphatemia -resolved HTN -uncontrolled, meds adjusted Moderate protein calorie malnutrition -on tube feeding -pattern marking supervisor following Morbid obesity: Supportive care and counselling when awake DVT/GI prophylaxis with Lovenox and famotidine Poor Prognosis Trach/Peg and possible LTAC eval The high probability of a clinically significant, sudden or life threatening d eterioration of the [Neurology, Pulmonary] system(s) required my full and direct attention, intervention and personal management. The aggregate critical care time was [35] minutes. This time is in addition to time spent performing reported procedures but includes the following: [x] Data Review and interpretation [x] Patient assessment and monitoring of vital signs [x] Documentation [x] Medication orders and management History Interval history: Patient seen and examined, Remains unresponsive although still spontaneously opens his eyes. No overnight issues reported. Patient remains off sedation and not responsive. Hospitalist Physical - Physical exam Narrative exam: VITAL SIGNS: Reviewed. GENERAL: The patient appeared well nourished and normally developed. Continues on mechanical ventilation. Ventilatory support- unresponsive. Vital signs as documented. HEAD: No signs of head trauma. EYES: Pupils are equal. Sluggish response to light.. EARS: Unable to assess MOUTH: ET tube in place. NECK: No adenopathy, no JVD. CHEST: Chest with clear breath sounds bilaterally. No wheezes, rales, or rhonchi. CARDIAC: Bradycardia with regular rate. S1 and S2, without murmurs, gallops, or rubs. VASCULAR: No Edema. Peripheral pulses normal and equal in all extremities. ABDOMEN: Soft, without detectable tenderness. No sign of distention. No rebound or guarding, and no masses palpated. Bowel Sounds normal. MUSCULOSKELETAL: Unable to assess. Extremities without clubbing, cyanosis or edema. NEUROLOGIC EXAM: Unresponsive, MOVES EXT. OPENS EYES BUT NOT FOLLOWING COMMAND PSYCHIATRIC: Unable to assess SKIN: No rash or lesions. - Constitutional Vitals: Temp Pulse Resp BP Pulse Ox 99.0 F 63 20 125/45 65 L 04/27/18 08:00 04/27/18 10:24 04/27/18 08:00 04/27/18 10:24 04/27/18 08:00 General appearance: Present: no acute distress, other (intubated on vent) Results - Labs CBC & Chem 7: 04/25/18 05:22 04/25/18 05:22 Labs: Laboratory Last Values WBC 7.2 K/mm3 (4.5-11.0) 04/25/18 05:22 RBC 4.20 M/mm3 (3.65-5.03) 04/25/18 05:22 Hgb 12.9 gm/dl (11.8-15.2) 04/25/18 05:22 Hct 37.3 % (35.5-45.6) 04/25/18 05:22 MCV 89 fl (84-94) 04/25/18 05:22 MCH 31 pg (28-32) 04/25/18 05:22 MCHC 35 % (32-34) H 04/25/18 05:22 RDW 15.4 % (13.2-15.2) H 04/25/18 05:22 Plt Count 200 K/mm3 (140-440) 04/25/18 05:22 Lymph % (Auto) 21.2 % (13.4-35.0) 04/22/18 04:07 [place] % (Auto) 7.0 % (0.0-7.3) 04/22/18 04:07 Eos % (Auto) 3.5 % (0.0-4.3) 04/22/18 04:07 Baso % (Auto) 0.8 % (0.0-1.8) 04/22/18 04:07 Lymph # 2.0 K/mm3 (1.2-5.4) 04/22/18 04:07 [place] # 0.7 K/mm3 (0.0-0.8) 04/22/18 04:07 Eos # 0.3 K/mm3 (0.0-0.4) 04/22/18 04:07 Baso # 0.1 K/mm3 (0.0-0.1) 04/22/18 04:07 Seg Neutrophils % 67.5 % (40.0-70.0) 04/22/18 04:07 Seg Neutrophils # 6.5 K/mm3 (1.8-7.7) 04/22/18 04:07 APTT 24.8 Sec. (24.2-36.6) 04/09/18 23:16 POC ABG pH 7.471 (7.35-7.45) H 04/25/18 13:06 POC ABG pCO2 43.5 (35-45) 04/25/18 13:06 POC ABG pO2 115 (80-105) H 04/25/18 13:06 POC ABG HCO3 31.7 04/25/18 13:06 POC ABG Total CO2 33 04/25/18 13:06 POC ABG O2 Sat 99 04/25/18 13:06 POC ABG Base Excess 8 04/25/18 13:06 FiO2 30 % 04/25/18 13:06 Sodium 136 mmol/L (137-145) L 04/25/18 05:22 Potassium 4.4 mmol/L (3.6-5.0) 04/25/18 05:22 Chloride 95.0 mmol/L (98-107) L 04/25/18 05:22 Carbon Dioxide 28 mmol/L (22-30) 04/25/18 05:22 Anion Gap 17 mmol/L 04/25/18 05:22 BUN 14 mg/dL (9-20) 04/25/18 05:22 Creatinine 1.0 mg/dL (0.8-1.5) 04/25/18 05:22 Estimated GFR > 60 ml/min 04/25/18 05:22 BUN/Creatinine Ratio 14 % 04/25/18 05:22 Glucose 210 mg/dL (75-100) H 04/25/18 05:22 POC Glucose 258 (70-105) H 04/27/18 11:23 Hemoglobin A1c 6.4 % (4-6) H 04/11/18 04:28 Lactic Acid 1.70 mmol/L (0.7-2.0) 04/10/18 02:47 Calcium 9.3 mg/dL (8.4-10.2) 04/25/18 05:22 Phosphorus 3.60 mg/dL (2.5-4.5) 04/21/18 05:00 Magnesium 2.10 mg/dL (1.7-2.3) 04/21/18 05:00 Total Bilirubin 1.20 mg/dL (0.1-1.2) 04/18/18 11:00 Direct Bilirubin 0.3 mg/dL (0-0.2) H 04/18/18 11:00 Indirect Bilirubin 0.9 mg/dL 04/18/18 11:00 AST 87 units/L (5-40) H 04/18/18 11:00 ALT 39 units/L (7-56) 04/18/18 11:00 Alkaline Phosphatase 59 units/L (35-129) 04/18/18 11:00 Total Creatine Kinase 2247 units/L (55-170) H 04/14/18 05:00 CK-MB (CK-2) 30.0 ng/mL (0.0-4.0) H 04/10/18 10:37 CK-MB (CK-2) Rel Index 0.3 (0-4) 04/10/18 10:37 Troponin T < 0.010 ng/mL (0.00-0.029) 04/10/18 10:37 C-Reactive Protein 7.20 mg/dL (0.00-1.30) H 04/11/18 13:43 Total Protein 6.8 g/dL (6.3-8.2) 04/18/18 11:00 Albumin 3.7 g/dL (3.9-5) L 04/18/18 11:00 Albumin/Globulin Ratio 1.2 % 04/18/18 11:00 Vitamin B12 745.3 pg/mL (211-911) 04/24/18 16:50 TSH 47.760 mlU/mL (0.270-4.200) H 04/24/18 16:50 Free T4 0.10 ng/dL (0.76-1.46) L 04/24/18 16:50 Urine Color Yellow (Yellow) 04/10/18 01:07 Urine Turbidity Clear (Clear) 04/10/18 01:07 Urine pH 5.0 (5.0-7.0) 04/10/18 01:07 Ur Specific [place] 1.019 (1.003-1.030) 04/10/18 01:07 Urine Protein 100 mg/dl mg/dL (Negative) 04/10/18 01:07 Urine Glucose (UA) Neg mg/dL (Negative) 04/10/18 01:07 Urine Ketones Neg mg/dL (Negative) 04/10/18 01:07 Urine Blood Lg (Negative) 04/10/18 01:07 Urine Nitrite Neg (Negative) 04/10/18 01:07 Urine Bilirubin Neg (Negative) 04/10/18 01:07 Urine Urobilinogen < 2.0 mg/dL (<2.0) 04/10/18 01:07 Ur Leukocyte Esterase Neg (Negative) 04/10/18 01:07 Urine WBC (Auto) 1.0 /HPF (0.0-6.0) 04/10/18 01:07 Urine RBC (Auto) 9.0 /HPF (0.0-6.0) 04/10/18 01:07 U Epithel Cells (Auto) < 1.0 /HPF (0-13.0) 04/10/18 01:07 Urine Mucus Few /HPF 04/10/18 01:07 Levetiracetam 25.2 mcg/mL 04/12/18 20:37 Hepatitis A IgM Ab Non-reactive (NonReactive) 04/14/18 14:56 Hep Bs Antigen Non-reactive (Negative) 04/14/18 14:56 Hep B Core IgM Ab Non-reactive (NonReactive) 04/14/18 14:56 Hepatitis C Antibody Non-reactive (NonReactive) 04/14/18 14:56 Influenza A (Rapid) Negative (Negative) 04/11/18 15:08 Influenza B (Rapid) Negative (Negative) 04/11/18 15:08 Nutrition/Malnutrition Assess - Dietary Evaluation Nutrition/Malnutrition Findings: Nutrition Notes Start: 04/11/18 10:20 Freq: Status: Active Protocol: Document 04/25/18 15:33 (Rec: 04/25/18 15:37 [email or web address]) Co-Sign 04/25/18 15:33 LP Nutrition Notes Initial or Follow up Assessment Current Diagnosis Coronary Artery Disease, Diabetes,Hypertension, Respiratory Failure Other Pertinent Diagnosis Pneu, new onset seizures, acute encephalopathy Current Diet Vital AF 1.2 at 50ml/hr Labs/Tests B Pertinent Medications Reviewed Height 5 ft 9 in Weight 91.5 kg [place] Body Weight (kg) 72.72 BMI 29.7 Subjective/Other Information Pt f/u for stable TF. Observed Vital AF 1.2 infusing at 50 ml/hr. Per RN, pt. still tolerating well. Percent of energy/protein needs met: 98%/82% Burn Absent Trauma Absent #1 Nutrition Diagnosis Inadequate oral intake Diagnosis Progress(for reassessment Continues documentation) Is patient on ventilator? Yes Is Patient Ambulatory and/or Out of Bed No REE-([place]-confined to bed) 1956.840 Kcal/Kg value to use for calculation 16 Approximate Energy Requirements Using 1464 kcal/Kg Calculation Used for Recommendations Kcal/kg Additional Notes Protein needs are 110-183g (1. 2-2g/kg) Fluid needs are 1ml/kcal Nutrition Intervention Change Diet Order: Vital AF 1.2 Nutrition Support: Vital 1.2 at 50 mL/hr. Water flush 80 mL q4h. Kcal 1,440 Protein (gm) 90 Carbohydrates (gm) 133 Fluid (mL) 973 Goal #1 Continue to meet at least 80% of kcal and protein needs Anticipated Discharge Needs: Unable to determine at this time Follow-Up By: 05/02/18 Additional Comments Follow for stable TF
--- NOTE | 2018-04-27 15:53 | Progress Note ---
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 daily (transition to oral at 100 mics daily) - awaiting tracheostomy - continue daytime PSV trials as tolerated - prn CXR's & ABG's at this point - follow clinically of AB's s/p empiric therapy (ID input appreciated) - continue to wean supplemental oxygen to keep O2 sats > 90% - continue bronchodilators with pulmonary hygiene per RT - VAP bundle addressed - continue daily SAT's - titrate sedatives for RASS 0 to -1 (on hold re: AMS) - neurology evaluation ongoing - PICC line pulled - GI & VTE prophylaxis - trend CpK level - continue IVF fluids re: Rhabdo - replace electrolytes - continue AED's (Keppra) - continue pertinent home med's - continue enteral nutrition as tolerated - continue accuchecks q6h with glycemic control per SSI for target BG 140-180 mg/dL - will likely need outpatient PSG to evaluate JOE - continue other care per attending / other health consultant's ....... care plan discussed at length with his eldest son in the room and all his questions were answered; he will benefit from a Tracheostomy with AMS issues currently CODE STATUS: FULL CODE The high probability of a clinically significant, sudden or life-threatening deterioration of the [cardiac, neurology] system(s) required my full and direct attention, intervention and personal management. The aggregate critical care time was [30] minutes without overlap. Time includes spent on; [x] Data Review and interpretation [x] Patient assessment and monitoring of vital signs [x] Documentation [x] Medication orders and management Subjective Date of service: 04/27/18 Principal diagnosis: Ac Hypoxemic Resp Failure; Seizures; Encephalopathy; DM II; Rhabdomyolysis Interval history: Patient is seen today for: Acute Hypoxemic Respiratory Failure; New Onset Seizures (presumed secondary to Hypoglycemia); Acute Encephalopathy (Toxic - Metabolic); Diabetes Type II; Rhabdomyolysis Seen and examined at bedside; 24hour events reviewed; nursing and respiratory care staff consulted; no adverse overnight events reported to me; resting peacefully in bed; still with AMS; tolerating SBT; tolerating IV levoxyl; no arrythmia's; no emesis or overt aspiration; awaiting tracheostomy. Objective Vital Signs - 12hr 04/27/18 04/27/18 04/27/18 04:00 04:17 05:00 Temperature 98.2 F Pulse Rate 71 71 66 Pulse Rate [ 77 Apical] Pulse Rate [ 77 From Monitor] Respiratory 13 17 Rate Blood Pressure 104/57 104/57 103/52 O2 Sat by Pulse 100 100 100 Oximetry 04/27/18 04/27/18 04/27/18 06:00 07:00 08:00 Temperature 99.0 F Pulse Rate 66 63 70 Pulse Rate [ Apical] Pulse Rate [ From Monitor] Respiratory 14 15 20 Rate Blood Pressure 112/57 104/60 104/60 O2 Sat by Pulse 100 99 95 Oximetry 04/27/18 04/27/18 04/27/18 09:00 10:00 10:24 Temperature Pulse Rate 65 69 63 Pulse Rate [ Apical] Pulse Rate [ From Monitor] Respiratory 15 11 L Rate Blood Pressure 104/60 125/39 125/45 O2 Sat by Pulse 100 100 Oximetry 04/27/18 04/27/18 04/27/18 11:00 12:00 13:00 Temperature 97.4 F L Pulse Rate 65 74 75 Pulse Rate [ Apical] Pulse Rate [ From Monitor] Respiratory 15 22 15 Rate Blood Pressure 125/39 125/45 128/74 O2 Sat by Pulse 100 95 100 Oximetry 04/27/18 04/27/18 04/27/18 13:20 14:00 15:00 Temperature Pulse Rate 74 70 64 Pulse Rate [ Apical] Pulse Rate [ From Monitor] Respiratory 19 17 Rate Blood Pressure 128/74 128/74 128/74 O2 Sat by Pulse 100 100 Oximetry 04/27/18 15:20 Temperature Pulse Rate 72 Pulse Rate [ Apical] Pulse Rate [ From Monitor] Respiratory 20 Rate Blood Pressure O2 Sat by Pulse 96 Oximetry Constitutional: no acute distress, other (Elderly looking AAM, normocephalic and atraumatic with mildly increased respiratory effort on MVS) Eyes: non-icteric ENT: oropharynx moist, other (ETT 23 cm STEPHANIE) Neck: supple, no lymphadenopathy, no JVD, other (large neck circumference) Effort: mildly labored Ascultation: Bilateral: diminished breath sounds, rhonchi Percussion: Bilateral: not dull Cardiovascular: regular rate and rhythm Gastrointestinal: normoactive bowel sounds, soft, non-tender, non-distended, other (protuberant) Integumentary: normal Extremities: no cyanosis, no edema, pulses normal, no ischemia or petechiae Neurologic: non-focal exam (grossly), unable to assess, other (opens eyes spontaneously, not following my prompts) Psychiatric: other (unable to assess) CBC and BMP: 04/25/18 05:22 04/25/18 05:22 ABG, PT/INR, D-dimer: ABG POC ABG pH 7.471 (7.35-7.45) H 04/25/18 13:06 POC ABG pCO2 43.5 (35-45) 04/25/18 13:06 POC ABG pO2 115 (80-105) H 04/25/18 13:06 POC ABG HCO3 31.7 04/25/18 13:06 POC ABG Total CO2 33 04/25/18 13:06 POC ABG O2 Sat 99 04/25/18 13:06 Abnormal lab findings: Abnormal Labs 04/09/18 04/09/18 04/09/18 23:16 23:16 23:16 WBC 13.6 H Hct MCHC RDW Plt Count Lymph % (Auto) 9.4 L Wheeler % (Auto) Lymph # Wheeler # Seg Neutrophils % 87.3 H Seg Neutrophils # 11.9 H POC ABG pH POC ABG pCO2 POC ABG pO2 Sodium 132 L Potassium Chloride 92.7 L Carbon Dioxide BUN Glucose 143 H POC Glucose Hemoglobin A1c Lactic Acid 2.10 H* Calcium Phosphorus Magnesium Total Bilirubin 2.20 H Direct Bilirubin AST 107 H Total Creatine Kinase CK-MB (CK-2) C-Reactive Protein Total Protein Albumin TSH Free T4 04/10/18 04/10/18 04/10/18 00:38 00:55 01:13 WBC Hct MCHC RDW Plt Count Lymph % (Auto) Wheeler % (Auto) Lymph # Wheeler # Seg Neutrophils % Seg Neutrophils # POC ABG pH POC ABG pCO2 POC ABG pO2 Sodium Potassium Chloride Carbon Dioxide BUN Glucose POC Glucose 117 H 121 H Hemoglobin A1c Lactic Acid 2.10 H* Calcium Phosphorus Magnesium Total Bilirubin Direct Bilirubin AST Total Creatine Kinase CK-MB (CK-2) C-Reactive Protein Total Protein Albumin TSH Free T4 04/10/18 04/10/18 04/10/18 02:10 03:51 04:07 WBC 14.0 H Hct MCHC RDW Plt Count Lymph % (Auto) 7.5 L Wheeler % (Auto) Lymph # 1.1 L Wheeler # 1.0 H Seg Neutrophils % 84.9 H Seg Neutrophils # 11.8 H POC ABG pH POC ABG pCO2 POC ABG pO2 Sodium Potassium Chloride Carbon Dioxide BUN Glucose POC Glucose 153 H 158 H Hemoglobin A1c Lactic Acid Calcium Phosphorus Magnesium Total Bilirubin Direct Bilirubin AST Total Creatine Kinase CK-MB (CK-2) C-Reactive Protein Total Protein Albumin TSH Free T4 04/10/18 04/10/18 04/10/18 04:07 06:56 09:48 WBC Hct MCHC RDW Plt Count Lymph % (Auto) Wheeler % (Auto) Lymph # Wheeler # Seg Neutrophils % Seg Neutrophils # POC ABG pH POC ABG pCO2 POC ABG pO2 Sodium 130 L Potassium Chloride 93.4 L Carbon Dioxide BUN Glucose 180 H POC Glucose 251 H 245 H Hemoglobin A1c Lactic Acid Calcium 7.9 L D Phosphorus Magnesium Total Bilirubin Direct Bilirubin AST Total Creatine Kinase 7857 H CK-MB (CK-2) 34.3 H C-Reactive Protein Total Protein Albumin TSH Free T4 04/10/18 04/10/18 04/10/18 10:37 12:44 17:31 WBC Hct MCHC RDW Plt Count Lymph % (Auto) Wheeler % (Auto) Lymph # Wheeler # Seg Neutrophils % Seg Neutrophils # POC ABG pH POC ABG pCO2 45.6 H POC ABG pO2 374 H Sodium Potassium Chloride Carbon Dioxide BUN Glucose POC Glucose 348 H Hemoglobin A1c Lactic Acid Calcium Phosphorus Magnesium Total Bilirubin Direct Bilirubin AST Total Creatine Kinase 9880 H CK-MB (CK-2) 30.0 H C-Reactive Protein Total Protein Albumin TSH Free T4 04/10/18 04/11/18 04/11/18 23:36 03:52 04:28 WBC 12.2 H Hct MCHC RDW Plt Count 132 L Lymph % (Auto) Wheeler % (Auto) 10.2 H Lymph # Wheeler # 1.2 H Seg Neutrophils % 75.1 H Seg Neutrophils # 9.1 H POC ABG pH 7.495 H POC ABG pCO2 32.4 L POC ABG pO2 Sodium Potassium Chloride Carbon Dioxide BUN Glucose POC Glucose 148 H Hemoglobin A1c Lactic Acid Calcium Phosphorus Magnesium Total Bilirubin Direct Bilirubin AST Total Creatine Kinase CK-MB (CK-2) C-Reactive Protein Total Protein Albumin TSH Free T4 04/11/18 04/11/18 04/11/18 04:28 04:28 05:22 WBC Hct MCHC RDW Plt Count Lymph % (Auto) Wheeler % (Auto) Lymph # Wheeler # Seg Neutrophils % Seg Neutrophils # POC ABG pH POC ABG pCO2 POC ABG pO2 Sodium 133 L Potassium 3.5 L Chloride 95.1 L Carbon Dioxide BUN 7 L Glucose 206 H POC Glucose 178 H Hemoglobin A1c 6.4 H Lactic Acid Calcium 7.7 L Phosphorus 1.80 L Magnesium 1.50 L Total Bilirubin 4.10 H Direct Bilirubin AST 168 H Total Creatine Kinase 9352 H CK-MB (CK-2) C-Reactive Protein Total Protein Albumin 3.4 L TSH Free T4 04/11/18 04/11/18 04/11/18 11:28 13:43 17:30 WBC Hct MCHC RDW Plt Count Lymph % (Auto) Wheeler % (Auto) Lymph # Wheeler # Seg Neutrophils % Seg Neutrophils # POC ABG pH POC ABG pCO2 POC ABG pO2 Sodium Potassium Chloride Carbon Dioxide BUN Glucose POC Glucose 196 H 142 H Hemoglobin A1c Lactic Acid Calcium Phosphorus Magnesium Total Bilirubin Direct Bilirubin AST Total Creatine Kinase CK-MB (CK-2) C-Reactive Protein 7.20 H Total Protein Albumin TSH Free T4 04/11/18 04/11/18 04/12/18 18:59 23:23 04:00 WBC Hct MCHC RDW Plt Count Lymph % (Auto) Wheeler % (Auto) Lymph # Wheeler # Seg Neutrophils % Seg Neutrophils # POC ABG pH 7.489 H POC ABG pCO2 34.5 L POC ABG pO2 Sodium Potassium 3.3 L Chloride Carbon Dioxide BUN 6 L Glucose 151 H POC Glucose 129 H Hemoglobin A1c Lactic Acid Calcium 7.3 L Phosphorus 2.00 L Magnesium Total Bilirubin 2.80 H Direct Bilirubin AST 121 H Total Creatine Kinase 5177 H CK-MB (CK-2) C-Reactive Protein Total Protein 5.9 L Albumin 3.1 L TSH Free T4 04/12/18 04/12/18 04/12/18 04:00 04:04 05:21 WBC Hct 34.9 L MCHC 35 H RDW Plt Count 128 L Lymph % (Auto) Wheeler % (Auto) 10.6 H Lymph # Wheeler # 0.9 H Seg Neutrophils % Seg Neutrophils # POC ABG pH 7.454 H POC ABG pCO2 POC ABG pO2 Sodium Potassium Chloride Carbon Dioxide BUN Glucose POC Glucose 136 H Hemoglobin A1c Lactic Acid Calcium Phosphorus Magnesium Total Bilirubin Direct Bilirubin AST Total Creatine Kinase CK-MB (CK-2) C-Reactive Protein Total Protein Albumin TSH Free T4 04/12/18 04/13/18 04/13/18 11:23 00:21 04:57 WBC Hct MCHC RDW Plt Count Lymph % (Auto) Wheeler % (Auto) Lymph # Wheeler # Seg Neutrophils % Seg Neutrophils # POC ABG pH POC ABG pCO2 34.7 L POC ABG pO2 125 H Sodium Potassium Chloride Carbon Dioxide BUN Glucose POC Glucose 166 H 143 H Hemoglobin A1c Lactic Acid Calcium Phosphorus Magnesium Total Bilirubin Direct Bilirubin AST Total Creatine Kinase CK-MB (CK-2) C-Reactive Protein Total Protein Albumin TSH Free T4 04/13/18 04/13/18 04/13/18 05:02 05:02 12:16 WBC Hct MCHC RDW Plt Count Lymph % (Auto) Wheeler % (Auto) Lymph # Wheeler # Seg Neutrophils % Seg Neutrophils # POC ABG pH POC ABG pCO2 POC ABG pO2 Sodium Potassium Chloride Carbon Dioxide BUN Glucose POC Glucose 161 H 170 H Hemoglobin A1c Lactic Acid Calcium Phosphorus Magnesium Total Bilirubin Direct Bilirubin AST Total Creatine Kinase 3456 H CK-MB (CK-2) C-Reactive Protein Total Protein Albumin TSH Free T4 04/13/18 04/13/18 04/14/18 18:52 23:09 04:35 WBC Hct MCHC RDW Plt Count Lymph % (Auto) Wheeler % (Auto) Lymph # Wheeler # Seg Neutrophils % Seg Neutrophils # POC ABG pH 7.467 H POC ABG pCO2 POC ABG pO2 Sodium Potassium Chloride Carbon Dioxide BUN Glucose POC Glucose 196 H 219 H Hemoglobin A1c Lactic Acid Calcium Phosphorus Magnesium Total Bilirubin Direct Bilirubin AST Total Creatine Kinase CK-MB (CK-2) C-Reactive Protein Total Protein Albumin TSH Free T4 04/14/18 04/14/18 04/14/18 05:00 05:26 11:20 WBC Hct MCHC RDW Plt Count Lymph % (Auto) Wheeler % (Auto) Lymph # Wheeler # Seg Neutrophils % Seg Neutrophils # POC ABG pH POC ABG pCO2 POC ABG pO2 Sodium Potassium Chloride Carbon Dioxide BUN Glucose POC Glucose 249 H 260 H Hemoglobin A1c Lactic Acid Calcium Phosphorus Magnesium Total Bilirubin Direct Bilirubin AST Total Creatine Kinase 2247 H CK-MB (CK-2) C-Reactive Protein Total Protein Albumin TSH Free T4 04/14/18 04/14/18 04/14/18 17:04 17:51 23:53 WBC Hct MCHC RDW Plt Count Lymph % (Auto) Wheeler % (Auto) Lymph # Wheeler # Seg Neutrophils % Seg Neutrophils # POC ABG pH POC ABG pCO2 POC ABG pO2 79 L Sodium Potassium Chloride Carbon Dioxide BUN Glucose POC Glucose 284 H 203 H Hemoglobin A1c Lactic Acid Calcium Phosphorus Magnesium Total Bilirubin Direct Bilirubin AST Total Creatine Kinase CK-MB (CK-2) C-Reactive Protein Total Protein Albumin TSH Free T4 04/15/18 04/15/18 04/15/18 04:24 05:26 12:56 WBC Hct MCHC RDW Plt Count Lymph % (Auto) Wheeler % (Auto) Lymph # Wheeler # Seg Neutrophils % Seg Neutrophils # POC ABG pH POC ABG pCO2 45.4 H POC ABG pO2 78 L Sodium Potassium Chloride Carbon Dioxide BUN Glucose POC Glucose 194 H 200 H Hemoglobin A1c Lactic Acid Calcium Phosphorus Magnesium Total Bilirubin Direct Bilirubin AST Total Creatine Kinase CK-MB (CK-2) C-Reactive Protein Total Protein Albumin TSH Free T4 04/15/18 04/15/18 04/16/18 17:46 23:57 05:08 WBC Hct MCHC RDW Plt Count Lymph % (Auto) Wheeler % (Auto) Lymph # Wheeler # Seg Neutrophils % Seg Neutrophils # POC ABG pH POC ABG pCO2 POC ABG pO2 Sodium Potassium Chloride Carbon Dioxide BUN Glucose POC Glucose 118 H 204 H 221 H Hemoglobin A1c Lactic Acid Calcium Phosphorus Magnesium Total Bilirubin Direct Bilirubin AST Total Creatine Kinase CK-MB (CK-2) C-Reactive Protein Total Protein Albumin TSH Free T4 04/16/18 04/16/18 04/16/18 05:16 12:23 13:07 WBC Hct MCHC RDW Plt Count Lymph % (Auto) Wheeler % (Auto) Lymph # Wheeler # Seg Neutrophils % Seg Neutrophils # POC ABG pH 7.456 H POC ABG pCO2 46.7 H POC ABG pO2 Sodium Potassium Chloride Carbon Dioxide BUN Glucose POC Glucose 271 H Hemoglobin A1c Lactic Acid Calcium Phosphorus Magnesium Total Bilirubin Direct Bilirubin AST Total Creatine Kinase CK-MB (CK-2) C-Reactive Protein Total Protein Albumin TSH Free T4 04/16/18 04/17/18 04/17/18 19:14 00:08 05:46 WBC Hct MCHC RDW Plt Count Lymph % (Auto) Wheeler % (Auto) Lymph # Wheeler # Seg Neutrophils % Seg Neutrophils # POC ABG pH POC ABG pCO2 POC ABG pO2 Sodium Potassium Chloride Carbon Dioxide BUN Glucose POC Glucose 221 H 238 H 274 H Hemoglobin A1c Lactic Acid Calcium Phosphorus Magnesium Total Bilirubin Direct Bilirubin AST Total Creatine Kinase CK-MB (CK-2) C-Reactive Protein Total Protein Albumin TSH Free T4 04/17/18 04/17/18 04/17/18 13:50 13:59 14:20 WBC Hct MCHC RDW Plt Count Lymph % (Auto) Wheeler % (Auto) Lymph # Wheeler # Seg Neutrophils % Seg Neutrophils # POC ABG pH 7.474 H POC ABG pCO2 POC ABG pO2 Sodium Potassium 3.4 L Chloride 93.6 L Carbon Dioxide 33 H BUN Glucose 305 H POC Glucose 315 H Hemoglobin A1c Lactic Acid Calcium Phosphorus Magnesium Total Bilirubin Direct Bilirubin AST Total Creatine Kinase CK-MB (CK-2) C-Reactive Protein Total Protein Albumin TSH Free T4 04/17/18 04/17/18 04/18/18 17:04 23:26 04:20 WBC Hct MCHC RDW Plt Count Lymph % (Auto) Wheeler % (Auto) Lymph # Wheeler # Seg Neutrophils % Seg Neutrophils # POC ABG pH 7.473 H POC ABG pCO2 POC ABG pO2 Sodium Potassium Chloride Carbon Dioxide BUN Glucose POC Glucose 280 H 284 H Hemoglobin A1c Lactic Acid Calcium Phosphorus Magnesium Total Bilirubin Direct Bilirubin AST Total Creatine Kinase CK-MB (CK-2) C-Reactive Protein Total Protein Albumin TSH Free T4 04/18/18 04/18/18 04/18/18 05:14 08:32 11:00 WBC Hct MCHC RDW Plt Count Lymph % (Auto) Wheeler % (Auto) Lymph # Wheeler # Seg Neutrophils % Seg Neutrophils # POC ABG pH POC ABG pCO2 POC ABG pO2 Sodium Potassium Chloride Carbon Dioxide BUN Glucose POC Glucose 286 H 296 H Hemoglobin A1c Lactic Acid Calcium Phosphorus Magnesium Total Bilirubin Direct Bilirubin 0.3 H AST 87 H Total Creatine Kinase CK-MB (CK-2) C-Reactive Protein Total Protein Albumin 3.7 L TSH Free T4 04/18/18 04/18/18 04/19/18 12:03 18:15 00:08 WBC Hct MCHC RDW Plt Count Lymph % (Auto) Wheeler % (Auto) Lymph # Wheeler # Seg Neutrophils % Seg Neutrophils # POC ABG pH POC ABG pCO2 POC ABG pO2 Sodium Potassium Chloride Carbon Dioxide BUN Glucose POC Glucose 353 H 327 H 331 H Hemoglobin A1c Lactic Acid Calcium Phosphorus Magnesium Total Bilirubin Direct Bilirubin AST Total Creatine Kinase CK-MB (CK-2) C-Reactive Protein Total Protein Albumin TSH Free T4 04/19/18 04/19/18 04/19/18 04:46 05:26 11:48 WBC Hct MCHC RDW Plt Count Lymph % (Auto) Wheeler % (Auto) Lymph # Wheeler # Seg Neutrophils % Seg Neutrophils # POC ABG pH 7.497 H POC ABG pCO2 POC ABG pO2 119 H Sodium Potassium Chloride Carbon Dioxide BUN Glucose POC Glucose 323 H 266 H Hemoglobin A1c Lactic Acid Calcium Phosphorus Magnesium Total Bilirubin Direct Bilirubin AST Total Creatine Kinase CK-MB (CK-2) C-Reactive Protein Total Protein Albumin TSH Free T4 04/19/18 04/19/18 04/20/18 17:52 23:37 00:07 WBC Hct MCHC RDW Plt Count Lymph % (Auto) Wheeler % (Auto) Lymph # Wheeler # Seg Neutrophils % Seg Neutrophils # POC ABG pH POC ABG pCO2 POC ABG pO2 Sodium Potassium Chloride Carbon Dioxide BUN Glucose POC Glucose 284 H 285 H 312 H Hemoglobin A1c Lactic Acid Calcium Phosphorus Magnesium Total Bilirubin Direct Bilirubin AST Total Creatine Kinase CK-MB (CK-2) C-Reactive Protein Total Protein Albumin TSH Free T4 04/20/18 04/20/18 04/20/18 04:09 04:09 04:37 WBC Hct 34.7 L MCHC 35 H RDW Plt Count Lymph % (Auto) Wheeler % (Auto) Lymph # Wheeler # Seg Neutrophils % Seg Neutrophils # POC ABG pH POC ABG pCO2 POC ABG pO2 Sodium Potassium 3.5 L Chloride 95.7 L Carbon Dioxide 34 H BUN Glucose 286 H POC Glucose 267 H Hemoglobin A1c Lactic Acid Calcium Phosphorus Magnesium Total Bilirubin Direct Bilirubin AST Total Creatine Kinase CK-MB (CK-2) C-Reactive Protein Total Protein Albumin TSH Free T4 04/20/18 04/20/18 04/20/18 12:32 17:54 21:07 WBC Hct MCHC RDW Plt Count Lymph % (Auto) Wheeler % (Auto) Lymph # Wheeler # Seg Neutrophils % Seg Neutrophils # POC ABG pH POC ABG pCO2 POC ABG pO2 Sodium Potassium Chloride Carbon Dioxide BUN Glucose POC Glucose 220 H 298 H 187 H Hemoglobin A1c Lactic Acid Calcium Phosphorus Magnesium Total Bilirubin Direct Bilirubin AST Total Creatine Kinase CK-MB (CK-2) C-Reactive Protein Total Protein Albumin TSH Free T4 04/21/18 04/21/18 04/21/18 00:04 05:00 05:41 WBC Hct MCHC RDW Plt Count Lymph % (Auto) Wheeler % (Auto) Lymph # Wheeler # Seg Neutrophils % Seg Neutrophils # POC ABG pH POC ABG pCO2 POC ABG pO2 Sodium Potassium Chloride 95.2 L Carbon Dioxide 34 H BUN Glucose 179 H POC Glucose 183 H 166 H Hemoglobin A1c Lactic Acid Calcium Phosphorus Magnesium Total Bilirubin Direct Bilirubin AST Total Creatine Kinase CK-MB (CK-2) C-Reactive Protein Total Protein Albumin TSH Free T4 04/21/18 04/21/18 04/21/18 11:55 18:09 23:36 WBC Hct MCHC RDW Plt Count Lymph % (Auto) Wheeler % (Auto) Lymph # Wheeler # Seg Neutrophils % Seg Neutrophils # POC ABG pH POC ABG pCO2 POC ABG pO2 Sodium Potassium Chloride Carbon Dioxide BUN Glucose POC Glucose 219 H 247 H 229 H Hemoglobin A1c Lactic Acid Calcium Phosphorus Magnesium Total Bilirubin Direct Bilirubin AST Total Creatine Kinase CK-MB (CK-2) C-Reactive Protein Total Protein Albumin TSH Free T4 04/22/18 04/22/18 04/22/18 04:07 04:07 05:08 WBC Hct MCHC 35 H RDW 15.3 H Plt Count Lymph % (Auto) Wheeler % (Auto) Lymph # Wheeler # Seg Neutrophils % Seg Neutrophils # POC ABG pH POC ABG pCO2 POC ABG pO2 Sodium Potassium Chloride 97.4 L Carbon Dioxide 31 H BUN Glucose 177 H POC Glucose 200 H Hemoglobin A1c Lactic Acid Calcium Phosphorus Magnesium Total Bilirubin Direct Bilirubin AST Total Creatine Kinase CK-MB (CK-2) C-Reactive Protein Total Protein Albumin TSH Free T4 04/22/18 04/22/18 04/23/18 12:15 18:04 04:55 WBC Hct MCHC RDW Plt Count Lymph % (Auto) Wheeler % (Auto) Lymph # Wheeler # Seg Neutrophils % Seg Neutrophils # POC ABG pH POC ABG pCO2 POC ABG pO2 Sodium Potassium Chloride Carbon Dioxide BUN 23 H Glucose 274 H POC Glucose 189 H 191 H Hemoglobin A1c Lactic Acid Calcium Phosphorus Magnesium Total Bilirubin Direct Bilirubin AST Total Creatine Kinase CK-MB (CK-2) C-Reactive Protein Total Protein Albumin TSH Free T4 04/23/18 04/23/18 04/23/18 05:21 11:06 17:46 WBC Hct MCHC RDW Plt Count Lymph % (Auto) Wheeler % (Auto) Lymph # Wheeler # Seg Neutrophils % Seg Neutrophils # POC ABG pH POC ABG pCO2 POC ABG pO2 Sodium Potassium Chloride Carbon Dioxide BUN Glucose POC Glucose 143 H 176 H 142 H Hemoglobin A1c Lactic Acid Calcium Phosphorus Magnesium Total Bilirubin Direct Bilirubin AST Total Creatine Kinase CK-MB (CK-2) C-Reactive Protein Total Protein Albumin TSH Free T4 04/23/18 04/24/18 04/24/18 23:35 06:02 11:37 WBC Hct MCHC RDW Plt Count Lymph % (Auto) Wheeler % (Auto) Lymph # Wheeler # Seg Neutrophils % Seg Neutrophils # POC ABG pH POC ABG pCO2 POC ABG pO2 Sodium Potassium Chloride Carbon Dioxide BUN Glucose POC Glucose 127 H 175 H 188 H Hemoglobin A1c Lactic Acid Calcium Phosphorus Magnesium Total Bilirubin Direct Bilirubin AST Total Creatine Kinase CK-MB (CK-2) C-Reactive Protein Total Protein Albumin TSH Free T4 04/24/18 04/24/18 04/24/18 16:50 18:40 20:23 WBC Hct MCHC RDW Plt Count Lymph % (Auto) Wheeler % (Auto) Lymph # Wheeler # Seg Neutrophils % Seg Neutrophils # POC ABG pH POC ABG pCO2 POC ABG pO2 Sodium Potassium Chloride Carbon Dioxide BUN Glucose POC Glucose 134 H 148 H Hemoglobin A1c Lactic Acid Calcium Phosphorus Magnesium Total Bilirubin Direct Bilirubin AST Total Creatine Kinase CK-MB (CK-2) C-Reactive Protein Total Protein Albumin TSH 47.760 H Free T4 0.10 L 04/24/18 04/25/18 04/25/18 23:14 05:22 05:22 WBC Hct MCHC 35 H RDW 15.4 H Plt Count Lymph % (Auto) Wheeler % (Auto) Lymph # Wheeler # Seg Neutrophils % Seg Neutrophils # POC ABG pH POC ABG pCO2 POC ABG pO2 Sodium 136 L Potassium Chloride 95.0 L Carbon Dioxide BUN Glucose 210 H POC Glucose 145 H Hemoglobin A1c Lactic Acid Calcium Phosphorus Magnesium Total Bilirubin Direct Bilirubin AST Total Creatine Kinase CK-MB (CK-2) C-Reactive Protein Total Protein Albumin TSH Free T4 04/25/18 04/25/18 04/25/18 05:44 12:19 13:06 WBC Hct MCHC RDW Plt Count Lymph % (Auto) Wheeler % (Auto) Lymph # Wheeler # Seg Neutrophils % Seg Neutrophils # POC ABG pH 7.471 H POC ABG pCO2 POC ABG pO2 115 H Sodium Potassium Chloride Carbon Dioxide BUN Glucose POC Glucose 176 H 231 H Hemoglobin A1c Lactic Acid Calcium Phosphorus Magnesium Total Bilirubin Direct Bilirubin AST Total Creatine Kinase CK-MB (CK-2) C-Reactive Protein Total Protein Albumin TSH Free T4 04/25/18 04/25/18 04/26/18 17:54 20:09 00:01 WBC Hct MCHC RDW Plt Count Lymph % (Auto) Wheeler % (Auto) Lymph # Wheeler # Seg Neutrophils % Seg Neutrophils # POC ABG pH POC ABG pCO2 POC ABG pO2 Sodium Potassium Chloride Carbon Dioxide BUN Glucose POC Glucose 196 H 119 H 174 H Hemoglobin A1c Lactic Acid Calcium Phosphorus Magnesium Total Bilirubin Direct Bilirubin AST Total Creatine Kinase CK-MB (CK-2) C-Reactive Protein Total Protein Albumin TSH Free T4 04/26/18 04/26/18 04/26/18 05:10 12:03 15:20 WBC Hct MCHC RDW Plt Count Lymph % (Auto) Wheeler % (Auto) Lymph # Wheeler # Seg Neutrophils % Seg Neutrophils # POC ABG pH POC ABG pCO2 POC ABG pO2 Sodium Potassium Chloride Carbon Dioxide BUN Glucose POC Glucose 212 H 222 H 113 H Hemoglobin A1c Lactic Acid Calcium Phosphorus Magnesium Total Bilirubin Direct Bilirubin AST Total Creatine Kinase CK-MB (CK-2) C-Reactive Protein Total Protein Albumin TSH Free T4 04/26/18 04/26/18 04/27/18 18:08 23:39 05:10 WBC Hct MCHC RDW Plt Count Lymph % (Auto) Wheeler % (Auto) Lymph # Wheeler # Seg Neutrophils % Seg Neutrophils # POC ABG pH POC ABG pCO2 POC ABG pO2 Sodium Potassium Chloride Carbon Dioxide BUN Glucose POC Glucose 110 H 165 H 137 H Hemoglobin A1c Lactic Acid Calcium Phosphorus Magnesium Total Bilirubin Direct Bilirubin AST Total Creatine Kinase CK-MB (CK-2) C-Reactive Protein Total Protein Albumin TSH Free T4 04/27/18 04/27/18 10:04 11:23 WBC Hct MCHC RDW Plt Count Lymph % (Auto) Wheeler % (Auto) Lymph # Wheeler # Seg Neutrophils % Seg Neutrophils # POC ABG pH POC ABG pCO2 POC ABG pO2 Sodium Potassium Chloride Carbon Dioxide BUN Glucose POC Glucose 190 H 258 H Hemoglobin A1c Lactic Acid Calcium Phosphorus Magnesium Total Bilirubin Direct Bilirubin AST Total Creatine Kinase CK-MB (CK-2) C-Reactive Protein Total Protein Albumin TSH Free T4 Allied health notes reviewed: nursing
[2018-04-28] MEDS: HumaLOG SUB-Q SCH ×3 (05:35→17:05)
[2018-04-28] MEDS: SYNTHROID IV SCH (05:36)
[2018-04-28] MEDS: APRESOLINE PO SCH ×3 (05:37→21:15)
[2018-04-28] MEDS: SYNTHROID PO SCH (06:41)
[2018-04-28] MEDS ORDERED: NACL 0.9% 1000 ML 1,000 ML ONE (07:53)
[2018-04-28] MEDS: HumuLIN R SUB-Q SCH ×4 (09:42→19:56)
[2018-04-28] MEDS: LOVENOX SUB-Q SCH (09:43)
[2018-04-28] MEDS: KEPPRA PO SCH ×2 (09:43→21:14)
[2018-04-28] MEDS: LANTUS SUB-Q SCH (09:44)
[2018-04-28] MEDS: PEPCID PO SCH ×2 (09:44→21:14)
[2018-04-28] MEDS: NORVASC FEEDTUBE SCH (09:44)
[2018-04-28] MEDS: SODIUM CHLORIDE FLUSH SYRINGE 10 ML IV SCH ×2 (09:45)
[2018-04-28] MEDS: PROVIGIL PO SCH (10:06)
--- NOTE | 2018-04-28 13:35 | Progress Note ---
Assessment and Plan Assessment and plan: 78-year-old male patient with significant history of hypertension diabetes coronary artery disease was admitted through emergency room with history of unresponsiveness at home for unknown Duration of time. At that time he had hypoglycemia and seizure activity, Patient was unable to protect his airway and was intubated on ventilatory support admitted to ICU also with concern of Aspiration Pneumonia Hospital course -Neuro: Patient had CT scan 2 days does not show acute abnormality. 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 History this is most likely due to hypoglycemia, Now resolved Pulmonary: The patient has been maintained on mechanical ventilator, he's not been able to be weaned off the vent. The family wants to continue aggressive care. If the patient is not able, he will most likely need to be trached and peg FEN; his electrolytes namely potassium and phosphate were repleted ID; the patient received empiric antibiotics for pneumonia, Cultures including blood, urine and sputum has remained without growth. No new fever in the last 48hrs Musculoskeletal; Traumatic Rhabdomyolysis; status post IV fluids and improved, His medications were optimized for his chronic conditions Neuro: Unresponsive CXR: Concerning for Focal RLL infiltrate initially, repeat done 04/23/18 shows no acute pathology. 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 will switch to PO once complete 7 iv doses. Monitor for improvement. Concerning for Mxedema coma. Acute Toxic metabolic encephalopathy Likely secondary to Hypoxic Ischemic Encephalopathy vs hypgolycemic encephalopathy -no significant change in ms -EEG abnormal, awaiting repeat -MRI brain neg -neurology following -Maintain sleep wake cycle - Discussed with Sons and sister extensively, Repeat EEG is pending. Will also obtain neurology re-evaluation. They understand the prognosis is poor. Hypokalemia -resolved s/p repletion, will monitor Severe sepsis 2/2 aspiration PNA -resolved -off antibiotics FOLLOWING TREATMENT WITH ROCEPHIN AND FLAGYL Aspiration Pneumonia -completed antibiotics - No new fever DM II with hyperglycemia - Was hypoglycemic on admission - BG improved - Cont current insulin regimen and adjust as needed Seizure, new onset -probably 2/2 hypoglycemia recorded by EMS staff prior to admission -stable on Keppra -cont seizure precautions Critical Illness Myopathy -cont supportive care Thrombocytopenia -level improved, will monitor Transaminitis -levels improved -Hepatitis panel neg -Abd US neg Rhabdomyolysis -improved Hypophosphatemia -resolved HTN -uncontrolled, meds adjusted Moderate protein calorie malnutrition -on tube feeding -tester waste disposal leakage following Morbid obesity: Supportive care and counselling when awake DVT/GI prophylaxis with Lovenox and famotidine Poor Prognosis Trach/Peg and possible LTAC eval The high probability of a clinically significant, sudden or life threatening deterioration of the [Neurology, Pulmonary] system(s) required my full and direct attention, intervention and personal management. The aggregate critical care time was [35] minutes. This time is in addition to time spent performing reported procedures but includes the following: [x] Data Review and interpretation [x] Patient assessment and monitoring of vital signs [x] Documentation [x] Medication orders and management History Interval history: Patient seen and examined, Remains unresponsive although still spontaneously opens his eyes. No overnight issues reported. Patient remains off sedation and not responsive. Hospitalist Physical - Physical exam Narrative exam: VITAL SIGNS: Reviewed. GENERAL: The patient appeared well nourished and normally developed. Continues on mechanical ventilation. Ventilatory support- unresponsive. Vital signs as documented. HEAD: No signs of head trauma. EYES: Pupils are equal. Sluggish response to light.. EARS: Unable to assess MOUTH: ET tube in place. NECK: No adenopathy, no JVD. CHEST: Chest with clear breath sounds bilaterally. No wheezes, rales, or rhonchi. CARDIAC: Bradycardia with regular rate. S1 and S2, without murmurs, gallops, or rubs. VASCULAR: No Edema. Peripheral pulses normal and equal in all extremities. ABDOMEN: Soft, without detectable tenderness. No sign of distention. No rebound or guarding, and no masses palpated. Bowel Sounds normal. MUSCULOSKELETAL: Unable to assess. Extremities without clubbing, cyanosis or edema. NEUROLOGIC EXAM: Unresponsive, MOVES EXT. OPENS EYES BUT NOT FOLLOWING COMMAND PSYCHIATRIC: Unable to assess SKIN: No rash or lesions. - Constitutional Vitals: Temp Pulse Resp BP Pulse Ox 98 F 69 13 137/74 100 04/28/18 08:00 04/28/18 10:15 04/28/18 08:00 04/28/18 10:15 04/28/18 10:15 General appearance: Present: no acute distress, other (intubated on vent) Results - Labs CBC & Chem 7: 04/25/18 05:22 04/25/18 05:22 Labs: Laboratory Last Values WBC 7.2 K/mm3 (4.5-11.0) 04/25/18 05:22 RBC 4.20 M/mm3 (3.65-5.03) 04/25/18 05:22 Hgb 12.9 gm/dl (11.8-15.2) 04/25/18 05:22 Hct 37.3 % (35.5-45.6) 04/25/18 05:22 MCV 89 fl (84-94) 04/25/18 05:22 MCH 31 pg (28-32) 04/25/18 05:22 MCHC 35 % (32-34) H 04/25/18 05:22 RDW 15.4 % (13.2-15.2) H 04/25/18 05:22 Plt Count 200 K/mm3 (140-440) 04/25/18 05:22 Lymph % (Auto) 21.2 % (13.4-35.0) 04/22/18 04:07 [place] % (Auto) 7.0 % (0.0-7.3) 04/22/18 04:07 Eos % (Auto) 3.5 % (0.0-4.3) 04/22/18 04:07 Baso % (Auto) 0.8 % (0.0-1.8) 04/22/18 04:07 Lymph # 2.0 K/mm3 (1.2-5.4) 04/22/18 04:07 [place] # 0.7 K/mm3 (0.0-0.8) 04/22/18 04:07 Eos # 0.3 K/mm3 (0.0-0.4) 04/22/18 04:07 Baso # 0.1 K/mm3 (0.0-0.1) 04/22/18 04:07 Seg Neutrophils % 67.5 % (40.0-70.0) 04/22/18 04:07 Seg Neutrophils # 6.5 K/mm3 (1.8-7.7) 04/22/18 04:07 APTT 24.8 Sec. (24.2-36.6) 04/09/18 23:16 POC ABG pH 7.471 (7.35-7.45) H 04/25/18 13:06 POC ABG pCO2 43.5 (35-45) 04/25/18 13:06 POC ABG pO2 115 (80-105) H 04/25/18 13:06 POC ABG HCO3 31.7 04/25/18 13:06 POC ABG Total CO2 33 04/25/18 13:06 POC ABG O2 Sat 99 04/25/18 13:06 POC ABG Base Excess 8 04/25/18 13:06 FiO2 30 % 04/25/18 13:06 Sodium 136 mmol/L (137-145) L 04/25/18 05:22 Potassium 4.4 mmol/L (3.6-5.0) 04/25/18 05:22 Chloride 95.0 mmol/L (98-107) L 04/25/18 05:22 Carbon Dioxide 28 mmol/L (22-30) 04/25/18 05:22 Anion Gap 17 mmol/L 04/25/18 05:22 BUN 14 mg/dL (9-20) 04/25/18 05:22 Creatinine 1.0 mg/dL (0.8-1.5) 04/25/18 05:22 Estimated GFR > 60 ml/min 04/25/18 05:22 BUN/Creatinine Ratio 14 % 04/25/18 05:22 Glucose 210 mg/dL (75-100) H 04/25/18 05:22 POC Glucose 194 (70-105) H 04/28/18 13:06 Hemoglobin A1c 6.4 % (4-6) H 04/11/18 04:28 Lactic Acid 1.70 mmol/L (0.7-2.0) 04/10/18 02:47 Calcium 9.3 mg/dL (8.4-10.2) 04/25/18 05:22 Phosphorus 3.60 mg/dL (2.5-4.5) 04/21/18 05:00 Magnesium 2.10 mg/dL (1.7-2.3) 04/21/18 05:00 Total Bilirubin 1.20 mg/dL (0.1-1.2) 04/18/18 11:00 Direct Bilirubin 0.3 mg/dL (0-0.2) H 04/18/18 11:00 Indirect Bilirubin 0.9 mg/dL 04/18/18 11:00 AST 87 units/L (5-40) H 04/18/18 11:00 ALT 39 units/L (7-56) 04/18/18 11:00 Alkaline Phosphatase 59 units/L (35-129) 04/18/18 11:00 Total Creatine Kinase 2247 units/L (55-170) H 04/14/18 05:00 CK-MB (CK-2) 30.0 ng/mL (0.0-4.0) H 04/10/18 10:37 CK-MB (CK-2) Rel Index 0.3 (0-4) 04/10/18 10:37 Troponin T < 0.010 ng/mL (0.00-0.029) 04/10/18 10:37 C-Reactive Protein 7.20 mg/dL (0.00-1.30) H 04/11/18 13:43 Total Protein 6.8 g/dL (6.3-8.2) 04/18/18 11:00 Albumin 3.7 g/dL (3.9-5) L 04/18/18 11:00 Albumin/Globulin Ratio 1.2 % 04/18/18 11:00 Vitamin B12 745.3 pg/mL (211-911) 04/24/18 16:50 TSH 47.760 mlU/mL (0.270-4.200) H 04/24/18 16:50 Free T4 0.10 ng/dL (0.76-1.46) L 04/24/18 16:50 Urine Color Yellow (Yellow) 04/10/18 01:07 Urine Turbidity Clear (Clear) 04/10/18 01:07 Urine pH 5.0 (5.0-7.0) 04/10/18 01:07 Ur Specific [place] 1.019 (1.003-1.030) 04/10/18 01:07 Urine Protein 100 mg/dl mg/dL (Negative) 04/10/18 01:07 Urine Glucose (UA) Neg mg/dL (Negative) 04/10/18 01:07 Urine Ketones Neg mg/dL (Negative) 04/10/18 01:07 Urine Blood Lg (Negative) 04/10/18 01:07 Urine Nitrite Neg (Negative) 04/10/18 01:07 Urine Bilirubin Neg (Negative) 04/10/18 01:07 Urine Urobilinogen < 2.0 mg/dL (<2.0) 04/10/18 01:07 Ur Leukocyte Esterase Neg (Negative) 04/10/18 01:07 Urine WBC (Auto) 1.0 /HPF (0.0-6.0) 04/10/18 01:07 Urine RBC (Auto) 9.0 /HPF (0.0-6.0) 04/10/18 01:07 U Epithel Cells (Auto) < 1.0 /HPF (0-13.0) 04/10/18 01:07 Urine Mucus Few /HPF 04/10/18 01:07 Levetiracetam 25.2 mcg/mL 04/12/18 20:37 Hepatitis A IgM Ab Non-reactive (NonReactive) 04/14/18 14:56 Hep Bs Antigen Non-reactive (Negative) 04/14/18 14:56 Hep B Core IgM Ab Non-reactive (NonReactive) 04/14/18 14:56 Hepatitis C Antibody Non-reactive (NonReactive) 04/14/18 14:56 Influenza A (Rapid) Negative (Negative) 04/11/18 15:08 Influenza B (Rapid) Negative (Negative) 04/11/18 15:08 Nutrition/Malnutrition Assess - Dietary Evaluation Nutrition/Malnutrition Findings: Nutrition Notes Start: 04/11/18 10:20 Freq: Status: Active Protocol: Document 04/25/18 15:33 (Rec: 04/25/18 15:37 [email or web address]) Co-Sign 04/25/18 15:33 LP Nutrition Notes Initial or Follow up Assessment Current Diagnosis Coronary Artery Disease, Diabetes,Hypertension, Respiratory Failure Other Pertinent Diagnosis Pneu, new onset seizures, acute encephalopathy Current Diet Vital AF 1.2 at 50ml/hr Labs/Tests B Pertinent Medications Reviewed Height 5 ft 9 in Weight 91.5 kg [place] Body Weight (kg) 72.72 BMI 29.7 Subjective/Other Information Pt f/u for stable TF. Observed Vital AF 1.2 infusing at 50 ml/hr. Per RN, pt. still tolerating well. Percent of energy/protein needs met: 98%/82% Burn Absent Trauma Absent #1 Nutrition Diagnosis Inadequate oral intake Diagnosis Progress(for reassessment Continues documentation) Is patient on ventilator? Yes Is Patient Ambulatory and/or Out of Bed No REE-([facility]-confined to bed) 1956.840 Kcal/Kg value to use for calculation 16 Approximate Energy Requirements Using 1464 kcal/Kg Calculation Used for Recommendations Kcal/kg Additional Notes Protein needs are 110-183g (1. 2-2g/kg) Fluid needs are 1ml/kcal Nutrition Intervention Change Diet Order: Vital AF 1.2 Nutrition Support: Vital 1.2 at 50 mL/hr. Water flush 80 mL q4h. Kcal 1,440 Protein (gm) 90 Carbohydrates (gm) 133 Fluid (mL) 973 Goal #1 Continue to meet at least 80% of kcal and protein needs Anticipated Discharge Needs: Unable to determine at this time Follow-Up By: 05/02/18 Additional Comments Follow for stable TF - Attestation Statement I have reviewed and agreed w/ Malnutrition eval & tx plan: Yes
[2018-04-28] MEDS: SUBLIMAZE IV PRN ×2 (13:43→19:40)
--- NOTE | 2018-04-28 14:25 | Progress Note ---
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 daily (transition to oral at 100 mics daily) - awaiting tracheostomy - continue daytime PSV trials as tolerated - prn CXR's & ABG's at this point (repeat in am) - follow clinically of AB's s/p empiric therapy (ID input appreciated) - continue to wean supplemental oxygen to keep O2 sats > 90% - continue bronchodilators with pulmonary hygiene per RT - VAP bundle addressed - continue daily SAT's - titrate sedatives for RASS 0 to -1 (on hold re: AMS) - neurology evaluation ongoing - PICC line pulled - GI & VTE prophylaxis - trend CpK level - continue IVF fluids re: Rhabdo - replace electrolytes - continue AED's (Keppra) - continue pertinent home med's - continue enteral nutrition as tolerated - continue accuchecks q6h with glycemic control per SSI for target BG 140-180 mg/dL - will likely need outpatient PSG to evaluate JOE - continue other care per attending / other enterprise resource planning consultant's ....... re-evaluate in am & prn CODE STATUS: FULL CODE The high probability of a clinically significant, sudden or life-threatening det erioration of the [cardiac, neurology] system(s) required my full and direct attention, intervention and personal management. The aggregate critical care time was [32] minutes without overlap. Time includes spent on; [x] Data Review and interpretation [x] Patient assessment and monitoring of vital signs [x] Documentation [x] Medication orders and management Subjective Date of service: 04/28/18 Principal diagnosis: Ac Hypoxemic Resp Failure; Seizures; Encephalopathy; DM II; Rhabdomyolysis Interval history: Patient is seen today for: Acute Hypoxemic Respiratory Failure; New Onset Seizures (presumed secondary to Hypoglycemia); Acute Encephalopathy (Toxic - Metabolic); Diabetes Type II; Rhabdomyolysis Seen and examined at bedside; 24hour events reviewed; nursing and respiratory care staff consulted; no adverse overnight events reported to me; resting peacefully in bed; remains on MVS; AMS is persistent; no seizures; for tracheostomy on Sunday; tolerating tube feeds Objective Vital Signs - 12hr 04/28/18 04/28/18 04/28/18 03:00 04:00 05:00 Temperature 98.3 F Pulse Rate 67 66 58 L Pulse Rate [ 87 Apical] Respiratory 12 12 12 Rate Blood Pressure 142/64 133/68 120/67 O2 Sat by Pulse 100 100 100 Oximetry 04/28/18 04/28/18 04/28/18 05:04 05:30 05:37 Temperature 98.3 F Pulse Rate 63 58 L Pulse Rate [ 87 Apical] Respiratory 12 Rate Blood Pressure 120/67 120/67 O2 Sat by Pulse 100 Oximetry 04/28/18 04/28/18 04/28/18 06:00 07:00 08:00 Temperature 98 F Pulse Rate 70 60 64 Pulse Rate [ Apical] Respiratory 20 15 13 Rate Blood Pressure 120/67 135/57 139/67 O2 Sat by Pulse 99 100 100 Oximetry 04/28/18 04/28/18 09:44 10:15 Temperature Pulse Rate 63 69 Pulse Rate [ Apical] Respiratory Rate Blood Pressure 122/87 137/74 O2 Sat by Pulse 100 Oximetry Constitutional: no acute distress, other (Elderly looking AAM, normocephalic and atraumatic with mildly increased respiratory effort on MVS) Eyes: non-icteric ENT: oropharynx moist, other (ETT 23 cm STEPHANIE) Neck: supple, no lymphadenopathy, no JVD, other (large neck circumference) Effort: mildly labored Ascultation: Bilateral: diminished breath sounds, rhonchi Percussion: Bilateral: not dull Cardiovascular: regular rate and rhythm Gastrointestinal: normoactive bowel sounds, soft, non-tender, non-distended, other (protuberant) Integumentary: normal Extremities: no cyanosis, no edema, pulses normal, no ischemia or petechiae Neurologic: non-focal exam (grossly), unable to assess, other (opens eyes spontaneously, not following my prompts) Psychiatric: other (unable to assess) CBC and BMP: 04/25/18 05:22 04/25/18 05:22 ABG, PT/INR, D-dimer: ABG POC ABG pH 7.471 (7.35-7.45) H 04/25/18 13:06 POC ABG pCO2 43.5 (35-45) 04/25/18 13:06 POC ABG pO2 115 (80-105) H 04/25/18 13:06 POC ABG HCO3 31.7 04/25/18 13:06 POC ABG Total CO2 33 04/25/18 13:06 POC ABG O2 Sat 99 04/25/18 13:06 Abnormal lab findings: Abnormal Labs 04/09/18 04/09/18 04/09/18 23:16 23:16 23:16 WBC 13.6 H Hct MCHC RDW Plt Count Lymph % (Auto) 9.4 L [place] % (Auto) Lymph # [place] # Seg Neutrophils % 87.3 H Seg Neutrophils # 11.9 H POC ABG pH POC ABG pCO2 POC ABG pO2 Sodium 132 L Potassium Chloride 92.7 L Carbon Dioxide BUN Glucose 143 H POC Glucose Hemoglobin A1c Lactic Acid 2.10 H* Calcium Phosphorus Magnesium Total Bilirubin 2.20 H Direct Bilirubin AST 107 H Total Creatine Kinase CK-MB (CK-2) C-Reactive Protein Total Protein Albumin TSH Free T4 04/10/18 04/10/18 04/10/18 00:38 00:55 01:13 WBC Hct MCHC RDW Plt Count Lymph % (Auto) [place] % (Auto) Lymph # [place] # Seg Neutrophils % Seg Neutrophils # POC ABG pH POC ABG pCO2 POC ABG pO2 Sodium Potassium Chloride Carbon Dioxide BUN Glucose POC Glucose 117 H 121 H Hemoglobin A1c Lactic Acid 2.10 H* Calcium Phosphorus Magnesium Total Bilirubin Direct Bilirubin AST Total Creatine Kinase CK-MB (CK-2) C-Reactive Protein Total Protein Albumin TSH Free T4 04/10/18 04/10/18 04/10/18 02:10 03:51 04:07 WBC 14.0 H Hct MCHC RDW Plt Count Lymph % (Auto) 7.5 L [place] % (Auto) Lymph # 1.1 L [place] # 1.0 H Seg Neutrophils % 84.9 H Seg Neutrophils # 11.8 H POC ABG pH POC ABG pCO2 POC ABG pO2 Sodium Potassium Chloride Carbon Dioxide BUN Glucose POC Glucose 153 H 158 H Hemoglobin A1c Lactic Acid Calcium Phosphorus Magnesium Total Bilirubin Direct Bilirubin AST Total Creatine Kinase CK-MB (CK-2) C-Reactive Protein Total Protein Albumin TSH Free T4 04/10/18 04/10/18 04/10/18 04:07 06:56 09:48 WBC Hct MCHC RDW Plt Count Lymph % (Auto) [place] % (Auto) Lymph # [place] # Seg Neutrophils % Seg Neutrophils # POC ABG pH POC ABG pCO2 POC ABG pO2 Sodium 130 L Potassium Chloride 93.4 L Carbon Dioxide BUN Glucose 180 H POC Glucose 251 H 245 H Hemoglobin A1c Lactic Acid Calcium 7.9 L D Phosphorus Magnesium Total Bilirubin Direct Bilirubin AST Total Creatine Kinase 7857 H CK-MB (CK-2) 34.3 H C-Reactive Protein Total Protein Albumin TSH Free T4 04/10/18 04/10/18 04/10/18 10:37 12:44 17:31 WBC Hct MCHC RDW Plt Count Lymph % (Auto) [place] % (Auto) Lymph # [place] # Seg Neutrophils % Seg Neutrophils # POC ABG pH POC ABG pCO2 45.6 H POC ABG pO2 374 H Sodium Potassium Chloride Carbon Dioxide BUN Glucose POC Glucose 348 H Hemoglobin A1c Lactic Acid Calcium Phosphorus Magnesium Total Bilirubin Direct Bilirubin AST Total Creatine Kinase 9880 H CK-MB (CK-2) 30.0 H C-Reactive Protein Total Protein Albumin TSH Free T4 04/10/18 04/11/18 04/11/18 23:36 03:52 04:28 WBC 12.2 H Hct MCHC RDW Plt Count 132 L Lymph % (Auto) [place] % (Auto) 10.2 H Lymph # [place] # 1.2 H Seg Neutrophils % 75.1 H Seg Neutrophils # 9.1 H POC ABG pH 7.495 H POC ABG pCO2 32.4 L POC ABG pO2 Sodium Potassium Chloride Carbon Dioxide BUN Glucose POC Glucose 148 H Hemoglobin A1c Lactic Acid Calcium Phosphorus Magnesium Total Bilirubin Direct Bilirubin AST Total Creatine Kinase CK-MB (CK-2) C-Reactive Protein Total Protein Albumin TSH Free T4 04/11/18 04/11/18 04/11/18 04:28 04:28 05:22 WBC Hct MCHC RDW Plt Count Lymph % (Auto) [place] % (Auto) Lymph # [place] # Seg Neutrophils % Seg Neutrophils # POC ABG pH POC ABG pCO2 POC ABG pO2 Sodium 133 L Potassium 3.5 L Chloride 95.1 L Carbon Dioxide BUN 7 L Glucose 206 H POC Glucose 178 H Hemoglobin A1c 6.4 H Lactic Acid Calcium 7.7 L Phosphorus 1.80 L Magnesium 1.50 L Total Bilirubin 4.10 H Direct Bilirubin AST 168 H Total Creatine Kinase 9352 H CK-MB (CK-2) C-Reactive Protein Total Protein Albumin 3.4 L TSH Free T4 02/21/19 02/21/19 02/21/19 11:28 13:43 17:30 WBC Hct MCHC RDW Plt Count Lymph % (Auto) [place] % (Auto) Lymph # [place] # Seg Neutrophils % Seg Neutrophils # POC ABG pH POC ABG pCO2 POC ABG pO2 Sodium Potassium Chloride Carbon Dioxide BUN Glucose POC Glucose 196 H 142 H Hemoglobin A1c Lactic Acid Calcium Phosphorus Magnesium Total Bilirubin Direct Bilirubin AST Total Creatine Kinase CK-MB (CK-2) C-Reactive Protein 7.20 H Total Protein Albumin TSH Free T4 04/11/18 04/11/18 04/12/18 18:59 23:23 04:00 WBC Hct MCHC RDW Plt Count Lymph % (Auto) [place] % (Auto) Lymph # [place] # Seg Neutrophils % Seg Neutrophils # POC ABG pH 7.489 H POC ABG pCO2 34.5 L POC ABG pO2 Sodium Potassium 3.3 L Chloride Carbon Dioxide BUN 6 L Glucose 151 H POC Glucose 129 H Hemoglobin A1c Lactic Acid Calcium 7.3 L Phosphorus 2.00 L Magnesium Total Bilirubin 2.80 H Direct Bilirubin AST 121 H Total Creatine Kinase 5177 H CK-MB (CK-2) C-Reactive Protein Total Protein 5.9 L Albumin 3.1 L TSH Free T4 04/12/18 04/12/18 04/12/18 04:00 04:04 05:21 WBC Hct 34.9 L MCHC 35 H RDW Plt Count 128 L Lymph % (Auto) [place] % (Auto) 10.6 H Lymph # [place] # 0.9 H Seg Neutrophils % Seg Neutrophils # POC ABG pH 7.454 H POC ABG pCO2 POC ABG pO2 Sodium Potassium Chloride Carbon Dioxide BUN Glucose POC Glucose 136 H Hemoglobin A1c Lactic Acid Calcium Phosphorus Magnesium Total Bilirubin Direct Bilirubin AST Total Creatine Kinase CK-MB (CK-2) C-Reactive Protein Total Protein Albumin TSH Free T4 04/12/18 04/13/18 04/13/18 11:23 00:21 04:57 WBC Hct MCHC RDW Plt Count Lymph % (Auto) [place] % (Auto) Lymph # [place] # Seg Neutrophils % Seg Neutrophils # POC ABG pH POC ABG pCO2 34.7 L POC ABG pO2 125 H Sodium Potassium Chloride Carbon Dioxide BUN Glucose POC Glucose 166 H 143 H Hemoglobin A1c Lactic Acid Calcium Phosphorus Magnesium Total Bilirubin Direct Bilirubin AST Total Creatine Kinase CK-MB (CK-2) C-Reactive Protein Total Protein Albumin TSH Free T4 04/13/18 04/13/18 04/13/18 05:02 05:02 12:16 WBC Hct MCHC RDW Plt Count Lymph % (Auto) [place] % (Auto) Lymph # [place] # Seg Neutrophils % Seg Neutrophils # POC ABG pH POC ABG pCO2 POC ABG pO2 Sodium Potassium Chloride Carbon Dioxide BUN Glucose POC Glucose 161 H 170 H Hemoglobin A1c Lactic Acid Calcium Phosphorus Magnesium Total Bilirubin Direct Bilirubin AST Total Creatine Kinase 3456 H CK-MB (CK-2) C-Reactive Protein Total Protein Albumin TSH Free T4 04/13/18 04/13/18 04/14/18 18:52 23:09 04:35 WBC Hct MCHC RDW Plt Count Lymph % (Auto) [place] % (Auto) Lymph # [place] # Seg Neutrophils % Seg Neutrophils # POC ABG pH 7.467 H POC ABG pCO2 POC ABG pO2 Sodium Potassium Chloride Carbon Dioxide BUN Glucose POC Glucose 196 H 219 H Hemoglobin A1c Lactic Acid Calcium Phosphorus Magnesium Total Bilirubin Direct Bilirubin AST Total Creatine Kinase CK-MB (CK-2) C-Reactive Protein Total Protein Albumin TSH Free T4 04/14/18 04/14/18 04/14/18 05:00 05:26 11:20 WBC Hct MCHC RDW Plt Count Lymph % (Auto) [place] % (Auto) Lymph # [place] # Seg Neutrophils % Seg Neutrophils # POC ABG pH POC ABG pCO2 POC ABG pO2 Sodium Potassium Chloride Carbon Dioxide BUN Glucose POC Glucose 249 H 260 H Hemoglobin A1c Lactic Acid Calcium Phosphorus Magnesium Total Bilirubin Direct Bilirubin AST Total Creatine Kinase 2247 H CK-MB (CK-2) C-Reactive Protein Total Protein Albumin TSH Free T4 04/14/18 04/14/18 04/14/18 17:04 17:51 23:53 WBC Hct MCHC RDW Plt Count Lymph % (Auto) [place] % (Auto) Lymph # [place] # Seg Neutrophils % Seg Neutrophils # POC ABG pH POC ABG pCO2 POC ABG pO2 79 L Sodium Potassium Chloride Carbon Dioxide BUN Glucose POC Glucose 284 H 203 H Hemoglobin A1c Lactic Acid Calcium Phosphorus Magnesium Total Bilirubin Direct Bilirubin AST Total Creatine Kinase CK-MB (CK-2) C-Reactive Protein Total Protein Albumin TSH Free T4 04/15/18 04/15/18 04/15/18 04:24 05:26 12:56 WBC Hct MCHC RDW Plt Count Lymph % (Auto) [place] % (Auto) Lymph # [place] # Seg Neutrophils % Seg Neutrophils # POC ABG pH POC ABG pCO2 45.4 H POC ABG pO2 78 L Sodium Potassium Chloride Carbon Dioxide BUN Glucose POC Glucose 194 H 200 H Hemoglobin A1c Lactic Acid Calcium Phosphorus Magnesium Total Bilirubin Direct Bilirubin AST Total Creatine Kinase CK-MB (CK-2) C-Reactive Protein Total Protein Albumin TSH Free T4 04/15/18 04/15/18 04/16/18 17:46 23:57 05:08 WBC Hct MCHC RDW Plt Count Lymph % (Auto) [place] % (Auto) Lymph # [place] # Seg Neutrophils % Seg Neutrophils # POC ABG pH POC ABG pCO2 POC ABG pO2 Sodium Potassium Chloride Carbon Dioxide BUN Glucose POC Glucose 118 H 204 H 221 H Hemoglobin A1c Lactic Acid Calcium Phosphorus Magnesium Total Bilirubin Direct Bilirubin AST Total Creatine Kinase CK-MB (CK-2) C-Reactive Protein Total Protein Albumin TSH Free T4 04/16/18 04/16/18 04/16/18 05:16 12:23 13:07 WBC Hct MCHC RDW Plt Count Lymph % (Auto) [place] % (Auto) Lymph # [place] # Seg Neutrophils % Seg Neutrophils # POC ABG pH 7.456 H POC ABG pCO2 46.7 H POC ABG pO2 Sodium Potassium Chloride Carbon Dioxide BUN Glucose POC Glucose 271 H Hemoglobin A1c Lactic Acid Calcium Phosphorus Magnesium Total Bilirubin Direct Bilirubin AST Total Creatine Kinase CK-MB (CK-2) C-Reactive Protein Total Protein Albumin TSH Free T4 04/16/18 04/17/18 04/17/18 19:14 00:08 05:46 WBC Hct MCHC RDW Plt Count Lymph % (Auto) [place] % (Auto) Lymph # [place] # Seg Neutrophils % Seg Neutrophils # POC ABG pH POC ABG pCO2 POC ABG pO2 Sodium Potassium Chloride Carbon Dioxide BUN Glucose POC Glucose 221 H 238 H 274 H Hemoglobin A1c Lactic Acid Calcium Phosphorus Magnesium Total Bilirubin Direct Bilirubin AST Total Creatine Kinase CK-MB (CK-2) C-Reactive Protein Total Protein Albumin TSH Free T4 04/17/18 04/17/18 04/17/18 13:50 13:59 14:20 WBC Hct MCHC RDW Plt Count Lymph % (Auto) [place] % (Auto) Lymph # [place] # Seg Neutrophils % Seg Neutrophils # POC ABG pH 7.474 H POC ABG pCO2 POC ABG pO2 Sodium Potassium 3.4 L Chloride 93.6 L Carbon Dioxide 33 H BUN Glucose 305 H POC Glucose 315 H Hemoglobin A1c Lactic Acid Calcium Phosphorus Magnesium Total Bilirubin Direct Bilirubin AST Total Creatine Kinase CK-MB (CK-2) C-Reactive Protein Total Protein Albumin TSH Free T4 04/17/18 04/17/18 04/18/18 17:04 23:26 04:20 WBC Hct MCHC RDW Plt Count Lymph % (Auto) [place] % (Auto) Lymph # [place] # Seg Neutrophils % Seg Neutrophils # POC ABG pH 7.473 H POC ABG pCO2 POC ABG pO2 Sodium Potassium Chloride Carbon Dioxide BUN Glucose POC Glucose 280 H 284 H Hemoglobin A1c Lactic Acid Calcium Phosphorus Magnesium Total Bilirubin Direct Bilirubin AST Total Creatine Kinase CK-MB (CK-2) C-Reactive Protein Total Protein Albumin TSH Free T4 04/18/18 04/18/18 04/18/18 05:14 08:32 11:00 WBC Hct MCHC RDW Plt Count Lymph % (Auto) [place] % (Auto) Lymph # [place] # Seg Neutrophils % Seg Neutrophils # POC ABG pH POC ABG pCO2 POC ABG pO2 Sodium Potassium Chloride Carbon Dioxide BUN Glucose POC Glucose 286 H 296 H Hemoglobin A1c Lactic Acid Calcium Phosphorus Magnesium Total Bilirubin Direct Bilirubin 0.3 H AST 87 H Total Creatine Kinase CK-MB (CK-2) C-Reactive Protein Total Protein Albumin 3.7 L TSH Free T4 04/18/18 04/18/18 04/19/18 12:03 18:15 00:08 WBC Hct MCHC RDW Plt Count Lymph % (Auto) [place] % (Auto) Lymph # [place] # Seg Neutrophils % Seg Neutrophils # POC ABG pH POC ABG pCO2 POC ABG pO2 Sodium Potassium Chloride Carbon Dioxide BUN Glucose POC Glucose 353 H 327 H 331 H Hemoglobin A1c Lactic Acid Calcium Phosphorus Magnesium Total Bilirubin Direct Bilirubin AST Total Creatine Kinase CK-MB (CK-2) C-Reactive Protein Total Protein Albumin TSH Free T4 04/19/18 04/19/18 04/19/18 04:46 05:26 11:48 WBC Hct MCHC RDW Plt Count Lymph % (Auto) [place] % (Auto) Lymph # [place] # Seg Neutrophils % Seg Neutrophils # POC ABG pH 7.497 H POC ABG pCO2 POC ABG pO2 119 H Sodium Potassium Chloride Carbon Dioxide BUN Glucose POC Glucose 323 H 266 H Hemoglobin A1c Lactic Acid Calcium Phosphorus Magnesium Total Bilirubin Direct Bilirubin AST Total Creatine Kinase CK-MB (CK-2) C-Reactive Protein Total Protein Albumin TSH Free T4 04/19/18 04/19/18 04/20/18 17:52 23:37 00:07 WBC Hct MCHC RDW Plt Count Lymph % (Auto) [place] % (Auto) Lymph # [place] # Seg Neutrophils % Seg Neutrophils # POC ABG pH POC ABG pCO2 POC ABG pO2 Sodium Potassium Chloride Carbon Dioxide BUN Glucose POC Glucose 284 H 285 H 312 H Hemoglobin A1c Lactic Acid Calcium Phosphorus Magnesium Total Bilirubin Direct Bilirubin AST Total Creatine Kinase CK-MB (CK-2) C-Reactive Protein Total Protein Albumin TSH Free T4 04/20/18 04/20/18 04/20/18 04:09 04:09 04:37 WBC Hct 34.7 L MCHC 35 H RDW Plt Count Lymph % (Auto) [place] % (Auto) Lymph # [place] # Seg Neutrophils % Seg Neutrophils # POC ABG pH POC ABG pCO2 POC ABG pO2 Sodium Potassium 3.5 L Chloride 95.7 L Carbon Dioxide 34 H BUN Glucose 286 H POC Glucose 267 H Hemoglobin A1c Lactic Acid Calcium Phosphorus Magnesium Total Bilirubin Direct Bilirubin AST Total Creatine Kinase CK-MB (CK-2) C-Reactive Protein Total Protein Albumin TSH Free T4 04/20/18 04/20/18 04/20/18 12:32 17:54 21:07 WBC Hct MCHC RDW Plt Count Lymph % (Auto) [place] % (Auto) Lymph # [place] # Seg Neutrophils % Seg Neutrophils # POC ABG pH POC ABG pCO2 POC ABG pO2 Sodium Potassium Chloride Carbon Dioxide BUN Glucose POC Glucose 220 H 298 H 187 H Hemoglobin A1c Lactic Acid Calcium Phosphorus Magnesium Total Bilirubin Direct Bilirubin AST Total Creatine Kinase CK-MB (CK-2) C-Reactive Protein Total Protein Albumin TSH Free T4 04/21/18 04/21/18 04/21/18 00:04 05:00 05:41 WBC Hct MCHC RDW Plt Count Lymph % (Auto) [place] % (Auto) Lymph # [place] # Seg Neutrophils % Seg Neutrophils # POC ABG pH POC ABG pCO2 POC ABG pO2 Sodium Potassium Chloride 95.2 L Carbon Dioxide 34 H BUN Glucose 179 H POC Glucose 183 H 166 H Hemoglobin A1c Lactic Acid Calcium Phosphorus Magnesium Total Bilirubin Direct Bilirubin AST Total Creatine Kinase CK-MB (CK-2) C-Reactive Protein Total Protein Albumin TSH Free T4 04/21/18 04/21/18 04/21/18 11:55 18:09 23:36 WBC Hct MCHC RDW Plt Count Lymph % (Auto) [place] % (Auto) Lymph # [place] # Seg Neutrophils % Seg Neutrophils # POC ABG pH POC ABG pCO2 POC ABG pO2 Sodium Potassium Chloride Carbon Dioxide BUN Glucose POC Glucose 219 H 247 H 229 H Hemoglobin A1c Lactic Acid Calcium Phosphorus Magnesium Total Bilirubin Direct Bilirubin AST Total Creatine Kinase CK-MB (CK-2) C-Reactive Protein Total Protein Albumin TSH Free T4 04/22/18 04/22/18 04/22/18 04:07 04:07 05:08 WBC Hct MCHC 35 H RDW 15.3 H Plt Count Lymph % (Auto) [place] % (Auto) Lymph # [place] # Seg Neutrophils % Seg Neutrophils # POC ABG pH POC ABG pCO2 POC ABG pO2 Sodium Potassium Chloride 97.4 L Carbon Dioxide 31 H BUN Glucose 177 H POC Glucose 200 H Hemoglobin A1c Lactic Acid Calcium Phosphorus Magnesium Total Bilirubin Direct Bilirubin AST Total Creatine Kinase CK-MB (CK-2) C-Reactive Protein Total Protein Albumin TSH Free T4 04/22/18 04/22/18 04/23/18 12:15 18:04 04:55 WBC Hct MCHC RDW Plt Count Lymph % (Auto) [place] % (Auto) Lymph # [place] # Seg Neutrophils % Seg Neutrophils # POC ABG pH POC ABG pCO2 POC ABG pO2 Sodium Potassium Chloride Carbon Dioxide BUN 23 H Glucose 274 H POC Glucose 189 H 191 H Hemoglobin A1c Lactic Acid Calcium Phosphorus Magnesium Total Bilirubin Direct Bilirubin AST Total Creatine Kinase CK-MB (CK-2) C-Reactive Protein Total Protein Albumin TSH Free T4 04/23/18 04/23/18 04/23/18 05:21 11:06 17:46 WBC Hct MCHC RDW Plt Count Lymph % (Auto) [place] % (Auto) Lymph # [place] # Seg Neutrophils % Seg Neutrophils # POC ABG pH POC ABG pCO2 POC ABG pO2 Sodium Potassium Chloride Carbon Dioxide BUN Glucose POC Glucose 143 H 176 H 142 H Hemoglobin A1c Lactic Acid Calcium Phosphorus Magnesium Total Bilirubin Direct Bilirubin AST Total Creatine Kinase CK-MB (CK-2) C-Reactive Protein Total Protein Albumin TSH Free T4 04/23/18 04/24/18 04/24/18 23:35 06:02 11:37 WBC Hct MCHC RDW Plt Count Lymph % (Auto) [place] % (Auto) Lymph # [place] # Seg Neutrophils % Seg Neutrophils # POC ABG pH POC ABG pCO2 POC ABG pO2 Sodium Potassium Chloride Carbon Dioxide BUN Glucose POC Glucose 127 H 175 H 188 H Hemoglobin A1c Lactic Acid Calcium Phosphorus Magnesium Total Bilirubin Direct Bilirubin AST Total Creatine Kinase CK-MB (CK-2) C-Reactive Protein Total Protein Albumin TSH Free T4 04/24/18 04/24/18 04/24/18 16:50 18:40 20:23 WBC Hct MCHC RDW Plt Count Lymph % (Auto) [place] % (Auto) Lymph # [place] # Seg Neutrophils % Seg Neutrophils # POC ABG pH POC ABG pCO2 POC ABG pO2 Sodium Potassium Chloride Carbon Dioxide BUN Glucose POC Glucose 134 H 148 H Hemoglobin A1c Lactic Acid Calcium Phosphorus Magnesium Total Bilirubin Direct Bilirubin AST Total Creatine Kinase CK-MB (CK-2) C-Reactive Protein Total Protein Albumin TSH 47.760 H Free T4 0.10 L 04/24/18 04/25/18 04/25/18 23:14 05:22 05:22 WBC Hct MCHC 35 H RDW 15.4 H Plt Count Lymph % (Auto) [place] % (Auto) Lymph # [place] # Seg Neutrophils % Seg Neutrophils # POC ABG pH POC ABG pCO2 POC ABG pO2 Sodium 136 L Potassium Chloride 95.0 L Carbon Dioxide BUN Glucose 210 H POC Glucose 145 H Hemoglobin A1c Lactic Acid Calcium Phosphorus Magnesium Total Bilirubin Direct Bilirubin AST Total Creatine Kinase CK-MB (CK-2) C-Reactive Protein Total Protein Albumin TSH Free T4 04/25/18 04/25/18 04/25/18 05:44 12:19 13:06 WBC Hct MCHC RDW Plt Count Lymph % (Auto) [place] % (Auto) Lymph # [place] # Seg Neutrophils % Seg Neutrophils # POC ABG pH 7.471 H POC ABG pCO2 POC ABG pO2 115 H Sodium Potassium Chloride Carbon Dioxide BUN Glucose POC Glucose 176 H 231 H Hemoglobin A1c Lactic Acid Calcium Phosphorus Magnesium Total Bilirubin Direct Bilirubin AST Total Creatine Kinase CK-MB (CK-2) C-Reactive Protein Total Protein Albumin TSH Free T4 04/25/18 04/25/18 04/26/18 17:54 20:09 00:01 WBC Hct MCHC RDW Plt Count Lymph % (Auto) [place] % (Auto) Lymph # [place] # Seg Neutrophils % Seg Neutrophils # POC ABG pH POC ABG pCO2 POC ABG pO2 Sodium Potassium Chloride Carbon Dioxide BUN Glucose POC Glucose 196 H 119 H 174 H Hemoglobin A1c Lactic Acid Calcium Phosphorus Magnesium Total Bilirubin Direct Bilirubin AST Total Creatine Kinase CK-MB (CK-2) C-Reactive Protein Total Protein Albumin TSH Free T4 04/26/18 04/26/18 04/26/18 05:10 12:03 15:20 WBC Hct MCHC RDW Plt Count Lymph % (Auto) [place] % (Auto) Lymph # [place] # Seg Neutrophils % Seg Neutrophils # POC ABG pH POC ABG pCO2 POC ABG pO2 Sodium Potassium Chloride Carbon Dioxide BUN Glucose POC Glucose 212 H 222 H 113 H Hemoglobin A1c Lactic Acid Calcium Phosphorus Magnesium Total Bilirubin Direct Bilirubin AST Total Creatine Kinase CK-MB (CK-2) C-Reactive Protein Total Protein Albumin TSH Free T4 04/26/18 04/26/18 04/27/18 18:08 23:39 05:10 WBC Hct MCHC RDW Plt Count Lymph % (Auto) [place] % (Auto) Lymph # [place] # Seg Neutrophils % Seg Neutrophils # POC ABG pH POC ABG pCO2 POC ABG pO2 Sodium Potassium Chloride Carbon Dioxide BUN Glucose POC Glucose 110 H 165 H 137 H Hemoglobin A1c Lactic Acid Calcium Phosphorus Magnesium Total Bilirubin Direct Bilirubin AST Total Creatine Kinase CK-MB (CK-2) C-Reactive Protein Total Protein Albumin TSH Free T4 04/27/18 04/27/18 04/27/18 10:04 11:23 17:36 WBC Hct MCHC RDW Plt Count Lymph % (Auto) [place] % (Auto) Lymph # [place] # Seg Neutrophils % Seg Neutrophils # POC ABG pH POC ABG pCO2 POC ABG pO2 Sodium Potassium Chloride Carbon Dioxide BUN Glucose POC Glucose 190 H 258 H 198 H Hemoglobin A1c Lactic Acid Calcium Phosphorus Magnesium Total Bilirubin Direct Bilirubin AST Total Creatine Kinase CK-MB (CK-2) C-Reactive Protein Total Protein Albumin TSH Free T4 04/27/18 04/28/18 04/28/18 23:23 05:19 13:06 WBC Hct MCHC RDW Plt Count Lymph % (Auto) [place] % (Auto) Lymph # [place] # Seg Neutrophils % Seg Neutrophils # POC ABG pH POC ABG pCO2 POC ABG pO2 Sodium Potassium Chloride Carbon Dioxide BUN Glucose POC Glucose 131 H 178 H 194 H Hemoglobin A1c Lactic Acid Calcium Phosphorus Magnesium Total Bilirubin Direct Bilirubin AST Total Creatine Kinase CK-MB (CK-2) C-Reactive Protein Total Protein Albumin TSH Free T4 Chest x-ray: pending Allied health notes reviewed: nursing
[2018-04-28] MEDS: ZOFRAN IV PRN (17:05)
[2018-04-29] MEDS: SODIUM CHLORIDE FLUSH SYRINGE 10 ML IV SCH ×3 (05:16→22:56)
[2018-04-29] MEDS: HumaLOG SUB-Q SCH ×4 (05:54→19:25)
[2018-04-29] MEDS: SYNTHROID PO SCH (05:55)
[2018-04-29] MEDS: APRESOLINE PO SCH ×3 (05:55→22:55)
--- NOTE | 2018-04-29 09:15 | Progress Note ---
Assessment and Plan - Patient Problems (1) Altered mental state Current Visit: Yes Status: Acute Qualifiers: Altered mental status type: unspecified Qualified Code(s): R41.82 - Altered mental status, unspecified Plan to address problem: Pt stable. No new issue to postpone trach/PEG tomorrow at 1:30pm. Spoke with Ortiz Carrasco (son) this morning. Obtained telephone consent for procedure. pr ocedure, risks, benefits discussed. All questions answered. Consent obtained. Will place pre-procedure orders today. Please call with questions. time=10min Subjective Date of service: 04/29/18 Patient Reports: Positive: other (no new events) Objective Vital Signs - 12hr 04/28/18 04/28/18 04/28/18 21:15 22:00 23:00 Temperature Pulse Rate 63 65 58 L Pulse Rate [ Apical] Respiratory 14 12 Rate Blood Pressure 151/82 140/76 140/76 O2 Sat by Pulse 100 100 Oximetry 04/28/18 04/29/18 04/29/18 23:53 00:00 01:00 Temperature 98.4 F Pulse Rate 78 75 85 Pulse Rate [ 74 Apical] Respiratory 15 20 Rate Blood Pressure 148/65 155/64 155/64 O2 Sat by Pulse 100 100 100 Oximetry 04/29/18 04/29/18 04/29/18 02:00 03:00 04:00 Temperature 98 F Pulse Rate 86 66 71 Pulse Rate [ 71 Apical] Respiratory 15 15 9 L Rate Blood Pressure 135/74 137/98 132/61 O2 Sat by Pulse 91 93 96 Oximetry 04/29/18 04/29/18 04/29/18 04:58 05:00 05:55 Temperature Pulse Rate 75 75 78 Pulse Rate [ Apical] Respiratory 12 Rate Blood Pressure 139/70 139/70 139/70 O2 Sat by Pulse 98 100 Oximetry 04/29/18 04/29/18 04/29/18 06:00 07:01 08:00 Temperature 98.6 F Pulse Rate 68 76 Pulse Rate [ Apical] Respiratory 13 18 Rate Blood Pressure 127/55 140/58 O2 Sat by Pulse 95 94 Oximetry 04/29/18 09:05 Temperature Pulse Rate 70 Pulse Rate [ Apical] Respiratory Rate Blood Pressure 139/62 O2 Sat by Pulse 98 Oximetry - General physical appearance no distress, no pain - Neck other (clear. No signs of infection or swelling) - Respiratory normal expansion, normal respiratory effort - Abdomen soft, not tender, not guarding, not rigid, other (protuberant) - Integumentary no rash, no growths, no abnormal pigmentation - Labs 04/25/18 05:22 04/25/18 05:22
[2018-04-29] MEDS: LOVENOX SUB-Q SCH (10:13)
[2018-04-29] MEDS: KEPPRA PO SCH ×2 (10:14→22:55)
[2018-04-29] MEDS: NORVASC FEEDTUBE SCH (10:14)
[2018-04-29] MEDS: SUBLIMAZE IV PRN (10:15)
[2018-04-29] MEDS: PEPCID PO SCH ×2 (10:16→22:55)
[2018-04-29] MEDS: LANTUS SUB-Q SCH (10:18)
[2018-04-29] MEDS: PROVIGIL PO SCH (10:20)
[2018-04-29] MEDS: HumuLIN R SUB-Q SCH ×3 (10:21→23:02)
--- NOTE | 2018-04-29 10:27 | Progress Note ---
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 daily - tracheostomy in am - continue daytime PSV trials as tolerated (failed due to apneic spells today - prn CXR's & ABG's at this point (repeat in am) - follow clinically of AB's s/p empiric therapy (ID input appreciated) - continue to wean supplemental oxygen to keep O2 sats > 90% - continue bronchodilators with pulmonary hygiene per RT - VAP bundle addressed - continue daily SAT's - titrate sedatives for RASS 0 to -1 (on hold re: AMS) - neurology evaluation ongoing - PICC line pulled - GI & VTE prophylaxis - trend CpK level - continue IVF fluids re: Rhabdo - replace electrolytes - continue AED's (Keppra) - continue pertinent home med's - continue enteral nutrition as tolerated - continue accuchecks q6h with glycemic control per SSI for target BG 140-180 mg/dL - will likely need outpatient PSG to evaluate JOE - continue other care per attending / other [employer] consultant's ....... re-evaluate in am & prn CODE STATUS: FULL CODE The high probability of a clinically significant, sudden or life-threatening deterioration of the [cardiac, neurology] system(s) required my full and direct attention, intervention and personal management. The aggregate critical care time was [34] minutes without overlap. Time includes spent on; [x] Data Review and interpretation [x] Patient assessment and monitoring of vital signs [x] Documentation [x] Medication orders and management Subjective Date of service: 04/29/18 Principal diagnosis: Ac Hypoxemic Resp Failure; Seizures; Encephalopathy; DM II; Rhabdomyolysis Interval history: Patient is seen today for: Acute Hypoxemic Respiratory Failure; New Onset Seizures (presumed secondary to Hypoglycemia); Acute Encephalopathy (Toxic - Metabolic); Diabetes Type II; Rhabdomyolysis Seen and examined at bedside; 24hour events reviewed; nursing and respiratory care staff consulted; no adverse overnight events reported to me; resting peacefully in bed; for tracheostomy in am; no improvement in AMS last 72 hours; No emesis or overt aspiration and no hypotensive episodes Objective Vital Signs - 12hr 04/28/18 04/28/18 04/29/18 23:00 23:53 00:00 Temperature 98.4 F Pulse Rate 58 L 78 75 Pulse Rate [ 74 Apical] Respiratory 12 15 Rate Blood Pressure 140/76 148/65 155/64 O2 Sat by Pulse 100 100 100 Oximetry 04/29/18 04/29/18 04/29/18 01:00 02:00 03:00 Temperature Pulse Rate 85 86 66 Pulse Rate [ Apical] Respiratory 20 15 15 Rate Blood Pressure 155/64 135/74 137/98 O2 Sat by Pulse 100 91 93 Oximetry 04/29/18 04/29/18 04/29/18 04:00 04:58 05:00 Temperature 98 F Pulse Rate 71 75 75 Pulse Rate [ 71 Apical] Respiratory 9 L 12 Rate Blood Pressure 132/61 139/70 139/70 O2 Sat by Pulse 96 98 100 Oximetry 04/29/18 04/29/18 04/29/18 05:55 06:00 07:01 Temperature Pulse Rate 78 68 76 Pulse Rate [ Apical] Respiratory 13 18 Rate Blood Pressure 139/70 127/55 140/58 O2 Sat by Pulse 95 94 Oximetry 04/29/18 04/29/18 08:00 09:05 Temperature 98.6 F Pulse Rate 70 Pulse Rate [ Apical] Respiratory Rate Blood Pressure 139/62 O2 Sat by Pulse 98 Oximetry Constitutional: no acute distress, other (Elderly looking AAM, normocephalic and atraumatic with mildly increased respiratory effort on MVS) Eyes: non-icteric ENT: oropharynx moist, other (ETT 23 cm STEPHANIE) Neck: supple, no lymphadenopathy, no JVD, other (large neck circumference) Effort: mildly labored Ascultation: Bilateral: diminished breath sounds, rhonchi Percussion: Bilateral: not dull Cardiovascular: regular rate and rhythm Gastrointestinal: normoactive bowel sounds, soft, non-tender, non-distended, other (protuberant) Integumentary: normal Extremities: no cyanosis, no edema, pulses normal, no ischemia or petechiae Neurologic: non-focal exam (grossly), unable to assess, other (opens eyes spontaneously, not following my prompts) Psychiatric: other (unable to assess) CBC and BMP: 04/29/18 13:29 04/29/18 13:29 ABG, PT/INR, D-dimer: ABG POC ABG pH 7.471 (7.35-7.45) H 04/25/18 13:06 POC ABG pCO2 43.5 (35-45) 04/25/18 13:06 POC ABG pO2 115 (80-105) H 04/25/18 13:06 POC ABG HCO3 31.7 04/25/18 13:06 POC ABG Total CO2 33 04/25/18 13:06 POC ABG O2 Sat 99 04/25/18 13:06 Abnormal lab findings: Abnormal Labs 04/09/18 04/09/18 04/09/18 23:16 23:16 23:16 WBC 13.6 H Hct MCHC RDW Plt Count Lymph % (Auto) 9.4 L Carter % (Auto) Lymph # Carter # Seg Neutrophils % 87.3 H Seg Neutrophils # 11.9 H POC ABG pH POC ABG pCO2 POC ABG pO2 Sodium 132 L Potassium Chloride 92.7 L Carbon Dioxide BUN Glucose 143 H POC Glucose Hemoglobin A1c Lactic Acid 2.10 H* Calcium Phosphorus Magnesium Total Bilirubin 2.20 H Direct Bilirubin AST 107 H Total Creatine Kinase CK-MB (CK-2) C-Reactive Protein Total Protein Albumin TSH Free T4 04/10/18 04/10/18 04/10/18 00:38 00:55 01:13 WBC Hct MCHC RDW Plt Count Lymph % (Auto) Carter % (Auto) Lymph # Carter # Seg Neutrophils % Seg Neutrophils # POC ABG pH POC ABG pCO2 POC ABG pO2 Sodium Potassium Chloride Carbon Dioxide BUN Glucose POC Glucose 117 H 121 H Hemoglobin A1c Lactic Acid 2.10 H* Calcium Phosphorus Magnesium Total Bilirubin Direct Bilirubin AST Total Creatine Kinase CK-MB (CK-2) C-Reactive Protein Total Protein Albumin TSH Free T4 04/10/18 04/10/18 04/10/18 02:10 03:51 04:07 WBC 14.0 H Hct MCHC RDW Plt Count Lymph % (Auto) 7.5 L Carter % (Auto) Lymph # 1.1 L Carter # 1.0 H Seg Neutrophils % 84.9 H Seg Neutrophils # 11.8 H POC ABG pH POC ABG pCO2 POC ABG pO2 Sodium Potassium Chloride Carbon Dioxide BUN Glucose POC Glucose 153 H 158 H Hemoglobin A1c Lactic Acid Calcium Phosphorus Magnesium Total Bilirubin Direct Bilirubin AST Total Creatine Kinase CK-MB (CK-2) C-Reactive Protein Total Protein Albumin TSH Free T4 04/10/18 04/10/18 04/10/18 04:07 06:56 09:48 WBC Hct MCHC RDW Plt Count Lymph % (Auto) Carter % (Auto) Lymph # Carter # Seg Neutrophils % Seg Neutrophils # POC ABG pH POC ABG pCO2 POC ABG pO2 Sodium 130 L Potassium Chloride 93.4 L Carbon Dioxide BUN Glucose 180 H POC Glucose 251 H 245 H Hemoglobin A1c Lactic Acid Calcium 7.9 L D Phosphorus Magnesium Total Bilirubin Direct Bilirubin AST Total Creatine Kinase 7857 H CK-MB (CK-2) 34.3 H C-Reactive Protein Total Protein Albumin TSH Free T4 04/10/18 04/10/18 04/10/18 10:37 12:44 17:31 WBC Hct MCHC RDW Plt Count Lymph % (Auto) Carter % (Auto) Lymph # Carter # Seg Neutrophils % Seg Neutrophils # POC ABG pH POC ABG pCO2 45.6 H POC ABG pO2 374 H Sodium Potassium Chloride Carbon Dioxide BUN Glucose POC Glucose 348 H Hemoglobin A1c Lactic Acid Calcium Phosphorus Magnesium Total Bilirubin Direct Bilirubin AST Total Creatine Kinase 9880 H CK-MB (CK-2) 30.0 H C-Reactive Protein Total Protein Albumin TSH Free T4 04/10/18 04/11/18 04/11/18 23:36 03:52 04:28 WBC 12.2 H Hct MCHC RDW Plt Count 132 L Lymph % (Auto) Carter % (Auto) 10.2 H Lymph # Carter # 1.2 H Seg Neutrophils % 75.1 H Seg Neutrophils # 9.1 H POC ABG pH 7.495 H POC ABG pCO2 32.4 L POC ABG pO2 Sodium Potassium Chloride Carbon Dioxide BUN Glucose POC Glucose 148 H Hemoglobin A1c Lactic Acid Calcium Phosphorus Magnesium Total Bilirubin Direct Bilirubin AST Total Creatine Kinase CK-MB (CK-2) C-Reactive Protein Total Protein Albumin TSH Free T4 04/11/18 04/11/18 04/11/18 04:28 04:28 05:22 WBC Hct MCHC RDW Plt Count Lymph % (Auto) Carter % (Auto) Lymph # Carter # Seg Neutrophils % Seg Neutrophils # POC ABG pH POC ABG pCO2 POC ABG pO2 Sodium 133 L Potassium 3.5 L Chloride 95.1 L Carbon Dioxide BUN 7 L Glucose 206 H POC Glucose 178 H Hemoglobin A1c 6.4 H Lactic Acid Calcium 7.7 L Phosphorus 1.80 L Magnesium 1.50 L Total Bilirubin 4.10 H Direct Bilirubin AST 168 H Total Creatine Kinase 9352 H CK-MB (CK-2) C-Reactive Protein Total Protein Albumin 3.4 L TSH Free T4 04/11/18 04/11/18 04/11/18 11:28 13:43 17:30 WBC Hct MCHC RDW Plt Count Lymph % (Auto) Carter % (Auto) Lymph # Carter # Seg Neutrophils % Seg Neutrophils # POC ABG pH POC ABG pCO2 POC ABG pO2 Sodium Potassium Chloride Carbon Dioxide BUN Glucose POC Glucose 196 H 142 H Hemoglobin A1c Lactic Acid Calcium Phosphorus Magnesium Total Bilirubin Direct Bilirubin AST Total Creatine Kinase CK-MB (CK-2) C-Reactive Protein 7.20 H Total Protein Albumin TSH Free T4 04/11/18 04/11/18 04/12/18 18:59 23:23 04:00 WBC Hct MCHC RDW Plt Count Lymph % (Auto) Carter % (Auto) Lymph # Carter # Seg Neutrophils % Seg Neutrophils # POC ABG pH 7.489 H POC ABG pCO2 34.5 L POC ABG pO2 Sodium Potassium 3.3 L Chloride Carbon Dioxide BUN 6 L Glucose 151 H POC Glucose 129 H Hemoglobin A1c Lactic Acid Calcium 7.3 L Phosphorus 2.00 L Magnesium Total Bilirubin 2.80 H Direct Bilirubin AST 121 H Total Creatine Kinase 5177 H CK-MB (CK-2) C-Reactive Protein Total Protein 5.9 L Albumin 3.1 L TSH Free T4 04/12/18 04/12/18 04/12/18 04:00 04:04 05:21 WBC Hct 34.9 L MCHC 35 H RDW Plt Count 128 L Lymph % (Auto) Carter % (Auto) 10.6 H Lymph # Carter # 0.9 H Seg Neutrophils % Seg Neutrophils # POC ABG pH 7.454 H POC ABG pCO2 POC ABG pO2 Sodium Potassium Chloride Carbon Dioxide BUN Glucose POC Glucose 136 H Hemoglobin A1c Lactic Acid Calcium Phosphorus Magnesium Total Bilirubin Direct Bilirubin AST Total Creatine Kinase CK-MB (CK-2) C-Reactive Protein Total Protein Albumin TSH Free T4 04/12/18 04/13/18 04/13/18 11:23 00:21 04:57 WBC Hct MCHC RDW Plt Count Lymph % (Auto) Carter % (Auto) Lymph # Carter # Seg Neutrophils % Seg Neutrophils # POC ABG pH POC ABG pCO2 34.7 L POC ABG pO2 125 H Sodium Potassium Chloride Carbon Dioxide BUN Glucose POC Glucose 166 H 143 H Hemoglobin A1c Lactic Acid Calcium Phosphorus Magnesium Total Bilirubin Direct Bilirubin AST Total Creatine Kinase CK-MB (CK-2) C-Reactive Protein Total Protein Albumin TSH Free T4 04/13/18 04/13/18 04/13/18 05:02 05:02 12:16 WBC Hct MCHC RDW Plt Count Lymph % (Auto) Carter % (Auto) Lymph # Carter # Seg Neutrophils % Seg Neutrophils # POC ABG pH POC ABG pCO2 POC ABG pO2 Sodium Potassium Chloride Carbon Dioxide BUN Glucose POC Glucose 161 H 170 H Hemoglobin A1c Lactic Acid Calcium Phosphorus Magnesium Total Bilirubin Direct Bilirubin AST Total Creatine Kinase 3456 H CK-MB (CK-2) C-Reactive Protein Total Protein Albumin TSH Free T4 04/13/18 04/13/18 04/14/18 18:52 23:09 04:35 WBC Hct MCHC RDW Plt Count Lymph % (Auto) Carter % (Auto) Lymph # Carter # Seg Neutrophils % Seg Neutrophils # POC ABG pH 7.467 H POC ABG pCO2 POC ABG pO2 Sodium Potassium Chloride Carbon Dioxide BUN Glucose POC Glucose 196 H 219 H Hemoglobin A1c Lactic Acid Calcium Phosphorus Magnesium Total Bilirubin Direct Bilirubin AST Total Creatine Kinase CK-MB (CK-2) C-Reactive Protein Total Protein Albumin TSH Free T4 04/14/18 04/14/18 04/14/18 05:00 05:26 11:20 WBC Hct MCHC RDW Plt Count Lymph % (Auto) Carter % (Auto) Lymph # Carter # Seg Neutrophils % Seg Neutrophils # POC ABG pH POC ABG pCO2 POC ABG pO2 Sodium Potassium Chloride Carbon Dioxide BUN Glucose POC Glucose 249 H 260 H Hemoglobin A1c Lactic Acid Calcium Phosphorus Magnesium Total Bilirubin Direct Bilirubin AST Total Creatine Kinase 2247 H CK-MB (CK-2) C-Reactive Protein Total Protein Albumin TSH Free T4 04/14/18 04/14/18 04/14/18 17:04 17:51 23:53 WBC Hct MCHC RDW Plt Count Lymph % (Auto) Carter % (Auto) Lymph # Carter # Seg Neutrophils % Seg Neutrophils # POC ABG pH POC ABG pCO2 POC ABG pO2 79 L Sodium Potassium Chloride Carbon Dioxide BUN Glucose POC Glucose 284 H 203 H Hemoglobin A1c Lactic Acid Calcium Phosphorus Magnesium Total Bilirubin Direct Bilirubin AST Total Creatine Kinase CK-MB (CK-2) C-Reactive Protein Total Protein Albumin TSH Free T4 04/15/18 04/15/18 04/15/18 04:24 05:26 12:56 WBC Hct MCHC RDW Plt Count Lymph % (Auto) Carter % (Auto) Lymph # Carter # Seg Neutrophils % Seg Neutrophils # POC ABG pH POC ABG pCO2 45.4 H POC ABG pO2 78 L Sodium Potassium Chloride Carbon Dioxide BUN Glucose POC Glucose 194 H 200 H Hemoglobin A1c Lactic Acid Calcium Phosphorus Magnesium Total Bilirubin Direct Bilirubin AST Total Creatine Kinase CK-MB (CK-2) C-Reactive Protein Total Protein Albumin TSH Free T4 04/15/18 04/15/18 04/16/18 17:46 23:57 05:08 WBC Hct MCHC RDW Plt Count Lymph % (Auto) Carter % (Auto) Lymph # Carter # Seg Neutrophils % Seg Neutrophils # POC ABG pH POC ABG pCO2 POC ABG pO2 Sodium Potassium Chloride Carbon Dioxide BUN Glucose POC Glucose 118 H 204 H 221 H Hemoglobin A1c Lactic Acid Calcium Phosphorus Magnesium Total Bilirubin Direct Bilirubin AST Total Creatine Kinase CK-MB (CK-2) C-Reactive Protein Total Protein Albumin TSH Free T4 04/16/18 04/16/18 04/16/18 05:16 12:23 13:07 WBC Hct MCHC RDW Plt Count Lymph % (Auto) Carter % (Auto) Lymph # Carter # Seg Neutrophils % Seg Neutrophils # POC ABG pH 7.456 H POC ABG pCO2 46.7 H POC ABG pO2 Sodium Potassium Chloride Carbon Dioxide BUN Glucose POC Glucose 271 H Hemoglobin A1c Lactic Acid Calcium Phosphorus Magnesium Total Bilirubin Direct Bilirubin AST Total Creatine Kinase CK-MB (CK-2) C-Reactive Protein Total Protein Albumin TSH Free T4 04/16/18 04/17/18 04/17/18 19:14 00:08 05:46 WBC Hct MCHC RDW Plt Count Lymph % (Auto) Carter % (Auto) Lymph # Carter # Seg Neutrophils % Seg Neutrophils # POC ABG pH POC ABG pCO2 POC ABG pO2 Sodium Potassium Chloride Carbon Dioxide BUN Glucose POC Glucose 221 H 238 H 274 H Hemoglobin A1c Lactic Acid Calcium Phosphorus Magnesium Total Bilirubin Direct Bilirubin AST Total Creatine Kinase CK-MB (CK-2) C-Reactive Protein Total Protein Albumin TSH Free T4 04/17/18 04/17/18 04/17/18 13:50 13:59 14:20 WBC Hct MCHC RDW Plt Count Lymph % (Auto) Carter % (Auto) Lymph # Carter # Seg Neutrophils % Seg Neutrophils # POC ABG pH 7.474 H POC ABG pCO2 POC ABG pO2 Sodium Potassium 3.4 L Chloride 93.6 L Carbon Dioxide 33 H BUN Glucose 305 H POC Glucose 315 H Hemoglobin A1c Lactic Acid Calcium Phosphorus Magnesium Total Bilirubin Direct Bilirubin AST Total Creatine Kinase CK-MB (CK-2) C-Reactive Protein Total Protein Albumin TSH Free T4 04/17/18 04/17/18 04/18/18 17:04 23:26 04:20 WBC Hct MCHC RDW Plt Count Lymph % (Auto) Carter % (Auto) Lymph # Carter # Seg Neutrophils % Seg Neutrophils # POC ABG pH 7.473 H POC ABG pCO2 POC ABG pO2 Sodium Potassium Chloride Carbon Dioxide BUN Glucose POC Glucose 280 H 284 H Hemoglobin A1c Lactic Acid Calcium Phosphorus Magnesium Total Bilirubin Direct Bilirubin AST Total Creatine Kinase CK-MB (CK-2) C-Reactive Protein Total Protein Albumin TSH Free T4 04/18/18 04/18/18 04/18/18 05:14 08:32 11:00 WBC Hct MCHC RDW Plt Count Lymph % (Auto) Carter % (Auto) Lymph # Carter # Seg Neutrophils % Seg Neutrophils # POC ABG pH POC ABG pCO2 POC ABG pO2 Sodium Potassium Chloride Carbon Dioxide BUN Glucose POC Glucose 286 H 296 H Hemoglobin A1c Lactic Acid Calcium Phosphorus Magnesium Total Bilirubin Direct Bilirubin 0.3 H AST 87 H Total Creatine Kinase CK-MB (CK-2) C-Reactive Protein Total Protein Albumin 3.7 L TSH Free T4 04/18/18 04/18/18 04/19/18 12:03 18:15 00:08 WBC Hct MCHC RDW Plt Count Lymph % (Auto) Carter % (Auto) Lymph # Carter # Seg Neutrophils % Seg Neutrophils # POC ABG pH POC ABG pCO2 POC ABG pO2 Sodium Potassium Chloride Carbon Dioxide BUN Glucose POC Glucose 353 H 327 H 331 H Hemoglobin A1c Lactic Acid Calcium Phosphorus Magnesium Total Bilirubin Direct Bilirubin AST Total Creatine Kinase CK-MB (CK-2) C-Reactive Protein Total Protein Albumin TSH Free T4 04/19/18 04/19/18 04/19/18 04:46 05:26 11:48 WBC Hct MCHC RDW Plt Count Lymph % (Auto) Carter % (Auto) Lymph # Carter # Seg Neutrophils % Seg Neutrophils # POC ABG pH 7.497 H POC ABG pCO2 POC ABG pO2 119 H Sodium Potassium Chloride Carbon Dioxide BUN Glucose POC Glucose 323 H 266 H Hemoglobin A1c Lactic Acid Calcium Phosphorus Magnesium Total Bilirubin Direct Bilirubin AST Total Creatine Kinase CK-MB (CK-2) C-Reactive Protein Total Protein Albumin TSH Free T4 04/19/18 04/19/18 04/20/18 17:52 23:37 00:07 WBC Hct MCHC RDW Plt Count Lymph % (Auto) Carter % (Auto) Lymph # Carter # Seg Neutrophils % Seg Neutrophils # POC ABG pH POC ABG pCO2 POC ABG pO2 Sodium Potassium Chloride Carbon Dioxide BUN Glucose POC Glucose 284 H 285 H 312 H Hemoglobin A1c Lactic Acid Calcium Phosphorus Magnesium Total Bilirubin Direct Bilirubin AST Total Creatine Kinase CK-MB (CK-2) C-Reactive Protein Total Protein Albumin TSH Free T4 04/20/18 04/20/18 04/20/18 04:09 04:09 04:37 WBC Hct 34.7 L MCHC 35 H RDW Plt Count Lymph % (Auto) Carter % (Auto) Lymph # Carter # Seg Neutrophils % Seg Neutrophils # POC ABG pH POC ABG pCO2 POC ABG pO2 Sodium Potassium 3.5 L Chloride 95.7 L Carbon Dioxide 34 H BUN Glucose 286 H POC Glucose 267 H Hemoglobin A1c Lactic Acid Calcium Phosphorus Magnesium Total Bilirubin Direct Bilirubin AST Total Creatine Kinase CK-MB (CK-2) C-Reactive Protein Total Protein Albumin TSH Free T4 04/20/18 04/20/18 04/20/18 12:32 17:54 21:07 WBC Hct MCHC RDW Plt Count Lymph % (Auto) Carter % (Auto) Lymph # Carter # Seg Neutrophils % Seg Neutrophils # POC ABG pH POC ABG pCO2 POC ABG pO2 Sodium Potassium Chloride Carbon Dioxide BUN Glucose POC Glucose 220 H 298 H 187 H Hemoglobin A1c Lactic Acid Calcium Phosphorus Magnesium Total Bilirubin Direct Bilirubin AST Total Creatine Kinase CK-MB (CK-2) C-Reactive Protein Total Protein Albumin TSH Free T4 04/21/18 04/21/18 04/21/18 00:04 05:00 05:41 WBC Hct MCHC RDW Plt Count Lymph % (Auto) Carter % (Auto) Lymph # Carter # Seg Neutrophils % Seg Neutrophils # POC ABG pH POC ABG pCO2 POC ABG pO2 Sodium Potassium Chloride 95.2 L Carbon Dioxide 34 H BUN Glucose 179 H POC Glucose 183 H 166 H Hemoglobin A1c Lactic Acid Calcium Phosphorus Magnesium Total Bilirubin Direct Bilirubin AST Total Creatine Kinase CK-MB (CK-2) C-Reactive Protein Total Protein Albumin TSH Free T4 04/21/18 04/21/18 04/21/18 11:55 18:09 23:36 WBC Hct MCHC RDW Plt Count Lymph % (Auto) Carter % (Auto) Lymph # Carter # Seg Neutrophils % Seg Neutrophils # POC ABG pH POC ABG pCO2 POC ABG pO2 Sodium Potassium Chloride Carbon Dioxide BUN Glucose POC Glucose 219 H 247 H 229 H Hemoglobin A1c Lactic Acid Calcium Phosphorus Magnesium Total Bilirubin Direct Bilirubin AST Total Creatine Kinase CK-MB (CK-2) C-Reactive Protein Total Protein Albumin TSH Free T4 04/22/18 04/22/18 04/22/18 04:07 04:07 05:08 WBC Hct MCHC 35 H RDW 15.3 H Plt Count Lymph % (Auto) Carter % (Auto) Lymph # Carter # Seg Neutrophils % Seg Neutrophils # POC ABG pH POC ABG pCO2 POC ABG pO2 Sodium Potassium Chloride 97.4 L Carbon Dioxide 31 H BUN Glucose 177 H POC Glucose 200 H Hemoglobin A1c Lactic Acid Calcium Phosphorus Magnesium Total Bilirubin Direct Bilirubin AST Total Creatine Kinase CK-MB (CK-2) C-Reactive Protein Total Protein Albumin TSH Free T4 04/22/18 04/22/18 04/23/18 12:15 18:04 04:55 WBC Hct MCHC RDW Plt Count Lymph % (Auto) Carter % (Auto) Lymph # Carter # Seg Neutrophils % Seg Neutrophils # POC ABG pH POC ABG pCO2 POC ABG pO2 Sodium Potassium Chloride Carbon Dioxide BUN 23 H Glucose 274 H POC Glucose 189 H 191 H Hemoglobin A1c Lactic Acid Calcium Phosphorus Magnesium Total Bilirubin Direct Bilirubin AST Total Creatine Kinase CK-MB (CK-2) C-Reactive Protein Total Protein Albumin TSH Free T4 04/23/18 04/23/18 04/23/18 05:21 11:06 17:46 WBC Hct MCHC RDW Plt Count Lymph % (Auto) Carter % (Auto) Lymph # Carter # Seg Neutrophils % Seg Neutrophils # POC ABG pH POC ABG pCO2 POC ABG pO2 Sodium Potassium Chloride Carbon Dioxide BUN Glucose POC Glucose 143 H 176 H 142 H Hemoglobin A1c Lactic Acid Calcium Phosphorus Magnesium Total Bilirubin Direct Bilirubin AST Total Creatine Kinase CK-MB (CK-2) C-Reactive Protein Total Protein Albumin TSH Free T4 04/23/18 04/24/18 04/24/18 23:35 06:02 11:37 WBC Hct MCHC RDW Plt Count Lymph % (Auto) Carter % (Auto) Lymph # Carter # Seg Neutrophils % Seg Neutrophils # POC ABG pH POC ABG pCO2 POC ABG pO2 Sodium Potassium Chloride Carbon Dioxide BUN Glucose POC Glucose 127 H 175 H 188 H Hemoglobin A1c Lactic Acid Calcium Phosphorus Magnesium Total Bilirubin Direct Bilirubin AST Total Creatine Kinase CK-MB (CK-2) C-Reactive Protein Total Protein Albumin TSH Free T4 04/24/18 04/24/18 04/24/18 16:50 18:40 20:23 WBC Hct MCHC RDW Plt Count Lymph % (Auto) Carter % (Auto) Lymph # Carter # Seg Neutrophils % Seg Neutrophils # POC ABG pH POC ABG pCO2 POC ABG pO2 Sodium Potassium Chloride Carbon Dioxide BUN Glucose POC Glucose 134 H 148 H Hemoglobin A1c Lactic Acid Calcium Phosphorus Magnesium Total Bilirubin Direct Bilirubin AST Total Creatine Kinase CK-MB (CK-2) C-Reactive Protein Total Protein Albumin TSH 47.760 H Free T4 0.10 L 04/24/18 04/25/18 04/25/18 23:14 05:22 05:22 WBC Hct MCHC 35 H RDW 15.4 H Plt Count Lymph % (Auto) Carter % (Auto) Lymph # Carter # Seg Neutrophils % Seg Neutrophils # POC ABG pH POC ABG pCO2 POC ABG pO2 Sodium 136 L Potassium Chloride 95.0 L Carbon Dioxide BUN Glucose 210 H POC Glucose 145 H Hemoglobin A1c Lactic Acid Calcium Phosphorus Magnesium Total Bilirubin Direct Bilirubin AST Total Creatine Kinase CK-MB (CK-2) C-Reactive Protein Total Protein Albumin TSH Free T4 04/25/18 04/25/18 04/25/18 05:44 12:19 13:06 WBC Hct MCHC RDW Plt Count Lymph % (Auto) Carter % (Auto) Lymph # Carter # Seg Neutrophils % Seg Neutrophils # POC ABG pH 7.471 H POC ABG pCO2 POC ABG pO2 115 H Sodium Potassium Chloride Carbon Dioxide BUN Glucose POC Glucose 176 H 231 H Hemoglobin A1c Lactic Acid Calcium Phosphorus Magnesium Total Bilirubin Direct Bilirubin AST Total Creatine Kinase CK-MB (CK-2) C-Reactive Protein Total Protein Albumin TSH Free T4 04/25/18 04/25/18 04/26/18 17:54 20:09 00:01 WBC Hct MCHC RDW Plt Count Lymph % (Auto) Carter % (Auto) Lymph # Carter # Seg Neutrophils % Seg Neutrophils # POC ABG pH POC ABG pCO2 POC ABG pO2 Sodium Potassium Chloride Carbon Dioxide BUN Glucose POC Glucose 196 H 119 H 174 H Hemoglobin A1c Lactic Acid Calcium Phosphorus Magnesium Total Bilirubin Direct Bilirubin AST Total Creatine Kinase CK-MB (CK-2) C-Reactive Protein Total Protein Albumin TSH Free T4 04/26/18 04/26/18 04/26/18 05:10 12:03 15:20 WBC Hct MCHC RDW Plt Count Lymph % (Auto) Carter % (Auto) Lymph # Carter # Seg Neutrophils % Seg Neutrophils # POC ABG pH POC ABG pCO2 POC ABG pO2 Sodium Potassium Chloride Carbon Dioxide BUN Glucose POC Glucose 212 H 222 H 113 H Hemoglobin A1c Lactic Acid Calcium Phosphorus Magnesium Total Bilirubin Direct Bilirubin AST Total Creatine Kinase CK-MB (CK-2) C-Reactive Protein Total Protein Albumin TSH Free T4 04/26/18 04/26/18 04/27/18 18:08 23:39 05:10 WBC Hct MCHC RDW Plt Count Lymph % (Auto) Carter % (Auto) Lymph # Carter # Seg Neutrophils % Seg Neutrophils # POC ABG pH POC ABG pCO2 POC ABG pO2 Sodium Potassium Chloride Carbon Dioxide BUN Glucose POC Glucose 110 H 165 H 137 H Hemoglobin A1c Lactic Acid Calcium Phosphorus Magnesium Total Bilirubin Direct Bilirubin AST Total Creatine Kinase CK-MB (CK-2) C-Reactive Protein Total Protein Albumin TSH Free T4 04/27/18 04/27/18 04/27/18 10:04 11:23 17:36 WBC Hct MCHC RDW Plt Count Lymph % (Auto) Carter % (Auto) Lymph # Carter # Seg Neutrophils % Seg Neutrophils # POC ABG pH POC ABG pCO2 POC ABG pO2 Sodium Potassium Chloride Carbon Dioxide BUN Glucose POC Glucose 190 H 258 H 198 H Hemoglobin A1c Lactic Acid Calcium Phosphorus Magnesium Total Bilirubin Direct Bilirubin AST Total Creatine Kinase CK-MB (CK-2) C-Reactive Protein Total Protein Albumin TSH Free T4 04/27/18 04/28/18 04/28/18 23:23 05:19 13:06 WBC Hct MCHC RDW Plt Count Lymph % (Auto) Carter % (Auto) Lymph # Carter # Seg Neutrophils % Seg Neutrophils # POC ABG pH POC ABG pCO2 POC ABG pO2 Sodium Potassium Chloride Carbon Dioxide BUN Glucose POC Glucose 131 H 178 H 194 H Hemoglobin A1c Lactic Acid Calcium Phosphorus Magnesium Total Bilirubin Direct Bilirubin AST Total Creatine Kinase CK-MB (CK-2) C-Reactive Protein Total Protein Albumin TSH Free T4 04/28/18 04/29/18 16:59 00:24 WBC Hct MCHC RDW Plt Count Lymph % (Auto) Carter % (Auto) Lymph # Carter # Seg Neutrophils % Seg Neutrophils # POC ABG pH POC ABG pCO2 POC ABG pO2 Sodium Potassium Chloride Carbon Dioxide BUN Glucose POC Glucose 155 H 166 H Hemoglobin A1c Lactic Acid Calcium Phosphorus Magnesium Total Bilirubin Direct Bilirubin AST Total Creatine Kinase CK-MB (CK-2) C-Reactive Protein Total Protein Albumin TSH Free T4 Allied health notes reviewed: nursing
--- NOTE | 2018-04-29 11:13 | XRay Report ---
AP CHEST: HISTORY: Endotracheal tube position Compared to 04/23/18. The endotracheal tube terminates 3.4 cm to the yanely. The lungs are clear. Normal heart and mediastinal structures. A feeding tube is coiled in the fundus of the stomach. IMPRESSION: Unremarkable AP chest. Endotracheal tube as described.
[2018-04-29] MEDS: ZOFRAN IV PRN (13:15)
[2018-04-29] MEDS: COLACE FEEDTUBE SCH ×2 (13:41→22:55)
[2018-04-29 13:55] LABS: Basophils % (Auto) 0.4 % (0.0-1.8); Eosinophils # (Auto) 0.2 K/mm3 (0.0-0.4); Eosinophils % (Auto) 2.7 % (0.0-4.3); Hematocrit 34.8 % (35.5-45.6); Hemoglobin 11.8 gm/dl (11.8-15.2); Lymphocytes # (Auto) 1.9 K/mm3 (1.2-5.4); Lymphocytes % (Auto) 25.6 % (13.4-35.0); Mean Corpuscular HGB Conc 34 % (32-34); Mean Corpuscular Volume 90 fl (84-94); Monocytes # (Auto) 0.7 K/mm3 (0.0-0.8); Monocytes % (Auto) 9.8 % (0.0-7.3); Platelet Count 215 K/mm3 (140-440); Red Blood Count 3.86 M/mm3 (3.65-5.03); Red Cell Distribution Width 15.1 % (13.2-15.2)
[2018-04-29 14:19] LABS: BUN/Creatinine Ratio 16; Blood Urea Nitrogen 14 mg/dL (9-20); Calcium 8.8 mg/dL (8.4-10.2); Hemolysis Index 8
--- NOTE | 2018-04-29 18:44 | Progress Note ---
Assessment and Plan Assessment and plan: 78-year-old male patient with significant history of hypertension diabetes coronary artery disease was admitted through emergency room with history of unresponsiveness at home for unknown Duration of time. At that time he had hypoglycemia and seizure activity, Patient was unable to protect his airway and was intubated on ventilatory support admitted to ICU also with concern of Aspiration Pneumonia Hospital course -Neuro: Patient had CT scan 2 days does not show acute abnormality. 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 History this is most likely due to hypoglycemia, Now resolved Pulmonary: The patient has been maintained on mechanical ventilator, he's not been able to be weaned off the vent. The family wants to continue aggressive care. If the patient is not able, he will most likely need to be trached and peg FEN; his electrolytes namely potassium and phosphate were repleted ID; the patient received empiric antibiotics for pneumonia, Cultures including blood, urine and sputum has remained without growth. No new fever in the last 48hrs Musculoskeletal; Traumatic Rhabdomyolysis; status post IV fluids and improved, His medications were optimized for his chronic conditions Neuro: Unresponsive CXR: Concerning for Focal RLL infiltrate initially, repeat done 04/23/18 shows no acute pathology. 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 SWITCHED TO PO Acute Toxic metabolic encephalopathy Likely secondary to Hypoxic Ischemic Encephalopathy vs hypgolycemic encephalopathy -no significant change in ms -EEG abnormal, awaiting repeat -MRI brain neg -neurology following -Maintain sleep wake cycle - Discussed with Sons and sister extensively, Repeat EEG is pending. Will also obtain neurology re-evaluation. They understand the prognosis is poor. Hypokalemia -resolved s/p repletion, will monitor Severe sepsis 2/2 aspiration PNA -resolved -off antibiotics FOLLOWING TREATMENT WITH ROCEPHIN AND FLAGYL Aspiration Pneumonia -completed antibiotics - No new fever DM II with hyperglycemia - Was hypoglycemic on admission - BG improved - Cont current insulin regimen and adjust as needed Seizure, new onset -probably 2/2 hypoglycemia recorded by EMS staff prior to admission -stable on Keppra -cont seizure precautions Critical Illness Myopathy -cont supportive care Thrombocytopenia -level improved, will monitor Transaminitis -levels improved -Hepatitis panel neg -Abd US neg Rhabdomyolysis -improved Hypophosphatemia -resolved Hypomagenesemia -Replaced HTN -uncontrolled, meds adjusted Moderate protein calorie malnutrition -on tube feeding -grab setter following Morbid obesity: Supportive care and counselling when awake DVT/GI prophylaxis with Lovenox and famotidine Poor Prognosis Trach/Peg and possible LTAC eval The high probability of a clinically significant, sudden or life threatening deterioration of the [Neurology, Pulmonary] system(s) required my full and direct attention, intervention and personal management. The aggregate critical care time was [35] minutes. This time is in addition to time spent performing reported procedures but includes the following: [x] Data Review and interpretation [x] Patient assessment and monitoring of vital signs [x] Documentation [x] Medication orders and management History Interval history: Patient seen and examined, Remains unresponsive although still spontaneously opens his eyes. No overnight issues reported. Patient remains off sedation and not responsive. Hospitalist Physical - Physical exam Narrative exam: VITAL SIGNS: Reviewed. GENERAL: The patient appeared well nourished and normally developed. Continues on mechanical ventilation. Ventilatory support- unresponsive. Vital signs as documented. HEAD: No signs of head trauma. EYES: Pupils are equal. Sluggish response to light.. EARS: Unable to assess MOUTH: ET tube in place. NECK: No adenopathy, no JVD. CHEST: Chest with clear breath sounds bilaterally. No wheezes, rales, or rhonchi. CARDIAC: Bradycardia with regular rate. S1 and S2, without murmurs, gallops, or rubs. VASCULAR: No Edema. Peripheral pulses normal and equal in all extremities. ABDOMEN: Soft, without detectable tenderness. No sign of distention. No rebound or guarding, and no masses palpated. Bowel Sounds normal. MUSCULOSKELETAL: Unable to assess. Extremities without clubbing, cyanosis or edema. NEUROLOGIC EXAM: Unresponsive, MOVES EXT. OPENS EYES BUT NOT FOLLOWING COMMAND PSYCHIATRIC: Unable to assess SKIN: No rash or lesions. - Constitutional Vitals: Temp Pulse Resp BP Pulse Ox 97.1 F L 65 14 137/62 100 04/29/18 16:00 04/29/18 17:01 04/29/18 17:01 04/29/18 17:01 04/29/18 17:01 General appearance: Present: no acute distress, other (intubated on vent) Results - Labs CBC & Chem 7: 04/29/18 13:29 04/29/18 13:29 Labs: Laboratory Last Values WBC 7.6 K/mm3 (4.5-11.0) 04/29/18 13:29 RBC 3.86 M/mm3 (3.65-5.03) 04/29/18 13:29 Hgb 11.8 gm/dl (11.8-15.2) 04/29/18 13:29 Hct 34.8 % (35.5-45.6) L 04/29/18 13:29 MCV 90 fl (84-94) 04/29/18 13:29 MCH 31 pg (28-32) 04/29/18 13:29 MCHC 34 % (32-34) 04/29/18 13:29 RDW 15.1 % (13.2-15.2) 04/29/18 13:29 Plt Count 215 K/mm3 (140-440) 04/29/18 13:29 Lymph % (Auto) 25.6 % (13.4-35.0) 04/29/18 13:29 [place] % (Auto) 9.8 % (0.0-7.3) H 04/29/18 13:29 Eos % (Auto) 2.7 % (0.0-4.3) 04/29/18 13:29 Baso % (Auto) 0.4 % (0.0-1.8) 04/29/18 13:29 Lymph # 1.9 K/mm3 (1.2-5.4) 04/29/18 13:29 [place] # 0.7 K/mm3 (0.0-0.8) 04/29/18 13:29 Eos # 0.2 K/mm3 (0.0-0.4) 04/29/18 13:29 Baso # 0.0 K/mm3 (0.0-0.1) 04/29/18 13:29 Seg Neutrophils % 61.5 % (40.0-70.0) 04/29/18 13:29 Seg Neutrophils # 4.7 K/mm3 (1.8-7.7) 04/29/18 13:29 APTT 24.8 Sec. (24.2-36.6) 04/09/18 23:16 POC ABG pH 7.471 (7.35-7.45) H 04/25/18 13:06 POC ABG pCO2 43.5 (35-45) 04/25/18 13:06 POC ABG pO2 115 (80-105) H 04/25/18 13:06 POC ABG HCO3 31.7 04/25/18 13:06 POC ABG Total CO2 33 04/25/18 13:06 POC ABG O2 Sat 99 04/25/18 13:06 POC ABG Base Excess 8 04/25/18 13:06 FiO2 30 % 04/25/18 13:06 Sodium 135 mmol/L (137-145) L 04/29/18 13:29 Potassium 4.0 mmol/L (3.6-5.0) 04/29/18 13:29 Chloride 99.0 mmol/L (98-107) 04/29/18 13:29 Carbon Dioxide 29 mmol/L (22-30) 04/29/18 13:29 Anion Gap 11 mmol/L 04/29/18 13:29 BUN 14 mg/dL (9-20) 04/29/18 13:29 Creatinine 0.9 mg/dL (0.8-1.5) 04/29/18 13:29 Estimated GFR > 60 ml/min 04/29/18 13:29 BUN/Creatinine Ratio 16 % 04/29/18 13:29 Glucose 214 mg/dL (75-100) H 04/29/18 13:29 POC Glucose 166 (70-105) H 04/29/18 00:24 Hemoglobin A1c 6.4 % (4-6) H 04/11/18 04:28 Lactic Acid 1.70 mmol/L (0.7-2.0) 04/10/18 02:47 Calcium 8.8 mg/dL (8.4-10.2) 04/29/18 13:29 Phosphorus 3.60 mg/dL (2.5-4.5) 04/21/18 05:00 Magnesium 2.10 mg/dL (1.7-2.3) 04/21/18 05:00 Total Bilirubin 1.20 mg/dL (0.1-1.2) 04/18/18 11:00 Direct Bilirubin 0.3 mg/dL (0-0.2) H 04/18/18 11:00 Indirect Bilirubin 0.9 mg/dL 04/18/18 11:00 AST 87 units/L (5-40) H 04/18/18 11:00 ALT 39 units/L (7-56) 04/18/18 11:00 Alkaline Phosphatase 59 units/L (35-129) 04/18/18 11:00 Total Creatine Kinase 2247 units/L (55-170) H 04/14/18 05:00 CK-MB (CK-2) 30.0 ng/mL (0.0-4.0) H 04/10/18 10:37 CK-MB (CK-2) Rel Index 0.3 (0-4) 04/10/18 10:37 Troponin T < 0.010 ng/mL (0.00-0.029) 04/10/18 10:37 C-Reactive Protein 7.20 mg/dL (0.00-1.30) H 04/11/18 13:43 Total Protein 6.8 g/dL (6.3-8.2) 04/18/18 11:00 Albumin 3.7 g/dL (3.9-5) L 04/18/18 11:00 Albumin/Globulin Ratio 1.2 % 04/18/18 11:00 Vitamin B12 745.3 pg/mL (211-911) 04/24/18 16:50 TSH 47.760 mlU/mL (0.270-4.200) H 04/24/18 16:50 Free T4 0.10 ng/dL (0.76-1.46) L 04/24/18 16:50 Urine Color Yellow (Yellow) 04/10/18 01:07 Urine Turbidity Clear (Clear) 04/10/18 01:07 Urine pH 5.0 (5.0-7.0) 04/10/18 01:07 Ur Specific [place] 1.019 (1.003-1.030) 04/10/18 01:07 Urine Protein 100 mg/dl mg/dL (Negative) 04/10/18 01:07 Urine Glucose (UA) Neg mg/dL (Negative) 04/10/18 01:07 Urine Ketones Neg mg/dL (Negative) 04/10/18 01:07 Urine Blood Lg (Negative) 04/10/18 01:07 Urine Nitrite Neg (Negative) 04/10/18 01:07 Urine Bilirubin Neg (Negative) 04/10/18 01:07 Urine Urobilinogen < 2.0 mg/dL (<2.0) 04/10/18 01:07 Ur Leukocyte Esterase Neg (Negative) 04/10/18 01:07 Urine WBC (Auto) 1.0 /HPF (0.0-6.0) 04/10/18 01:07 Urine RBC (Auto) 9.0 /HPF (0.0-6.0) 04/10/18 01:07 U Epithel Cells (Auto) < 1.0 /HPF (0-13.0) 04/10/18 01:07 Urine Mucus Few /HPF 04/10/18 01:07 Levetiracetam 25.2 mcg/mL 04/12/18 20:37 Hepatitis A IgM Ab Non-reactive (NonReactive) 04/14/18 14:56 Hep Bs Antigen Non-reactive (Negative) 04/14/18 14:56 Hep B Core IgM Ab Non-reactive (NonReactive) 04/14/18 14:56 Hepatitis C Antibody Non-reactive (NonReactive) 04/14/18 14:56 Influenza A (Rapid) Negative (Negative) 04/11/18 15:08 Influenza B (Rapid) Negative (Negative) 04/11/18 15:08 Nutrition/Malnutrition Assess - Dietary Evaluation Nutrition/Malnutrition Findings: Nutrition Notes Start: 04/11/18 10:20 Freq: Status: Active Protocol: Document 04/25/18 15:33 (Rec: 04/25/18 15:37 [email or web address]) Co-Sign 04/25/18 15:33 LP Nutrition Notes Initial or Follow up Assessment Current Diagnosis Coronary Artery Disease, Diabetes,Hypertension, Respiratory Failure Other Pertinent Diagnosis Pneu, new onset seizures, acute encephalopathy Current Diet Vital AF 1.2 at 50ml/hr Labs/Tests B Pertinent Medications Reviewed Height 5 ft 9 in Weight 91.5 kg [place] Body Weight (kg) 72.72 BMI 29.7 Subjective/Other Information Pt f/u for stable TF. Observed Vital AF 1.2 infusing at 50 ml/hr. Per RN, pt. still tolerating well. Percent of energy/protein needs met: 98%/82% Burn Absent Trauma Absent #1 Nutrition Diagnosis Inadequate oral intake Diagnosis Progress(for reassessment Continues documentation) Is patient on ventilator? Yes Is Patient Ambulatory and/or Out of Bed No REE-([facility]-confined to bed) 1956.840 Kcal/Kg value to use for calculation 16 Approximate Energy Requirements Using 1464 kcal/Kg Calculation Used for Recommendations Kcal/kg Additional Notes Protein needs are 110-183g (1. 2-2g/kg) Fluid needs are 1ml/kcal Nutrition Intervention Change Diet Order: Vital AF 1.2 Nutrition Support: Vital 1.2 at 50 mL/hr. Water flush 80 mL q4h. Kcal 1,440 Protein (gm) 90 Carbohydrates (gm) 133 Fluid (mL) 973 Goal #1 Continue to meet at least 80% of kcal and protein needs Anticipated Discharge Needs: Unable to determine at this time Follow-Up By: 05/02/18 Additional Comments Follow for stable TF
[2018-04-29] MEDS: MIRALAX 3350 PO SCH (22:55)
[2018-04-30] MEDS: HumaLOG SUB-Q SCH ×4 (00:43→19:39)
[2018-04-30] MEDS: SYNTHROID PO SCH (05:30)
[2018-04-30] MEDS: APRESOLINE PO SCH ×3 (05:30→22:11)
--- NOTE | 2018-04-30 08:38 | Progress Note ---
Assessment and Plan Assessment and plan: 78-year-old male patient with significant history of hypertension diabetes coronary artery disease was admitted through emergency room with history of unresponsiveness at home for unknown Duration of time. At that time he had hypoglycemia and seizure activity, Patient was unable to protect his airway and was intubated on ventilatory support admitted to ICU also with concern of Aspiration Pneumonia Hospital course -Neuro: Patient had CT scan 2 days does not show acute abnormality. 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 History this is most likely due to hypoglycemia, Now resolved Pulmonary: The patient has been maintained on mechanical ventilator, he's not been able to be weaned off the vent. The family wants to continue aggressive care. If the patient is not able, he will most likely need to be trached and peg FEN; his electrolytes namely potassium and phosphate were repleted ID; the patient received empiric antibiotics for pneumonia, Cultures including blood, urine and sputum has remained without growth. No new fever in the last 48hrs Musculoskeletal; Traumatic Rhabdomyolysis; status post IV fluids and improved, His medications were optimized for his chronic conditions Neuro: Unresponsive CXR: Concerning for Focal RLL infiltrate initially, repeat done 04/23/18 shows no acute pathology. Diagnosis Acute respiratory failure with hypoxia -s/p intubation on MV Greater than 96hr -pulmonology following -will likely need Trach and peg- surgeon consulted- planned for today -check PT/INR 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 SWITCHED TO PO Acute Toxic metabolic encephalopathy Likely secondary to Hypoxic Ischemic Encephalopathy vs hypgolycemic encephalopathy -no significant change in ms -EEG abnormal, awaiting repeat -MRI brain neg -neurology following -Maintain sleep wake cycle - Discussed with Sons and sister extensively, Repeat EEG is pending. Will also obtain neurology re-evaluation. They understand the prognosis is poor. Hypokalemia -resolved s/p repletion, will monitor Severe sepsis 2/2 aspiration PNA -resolved -off antibiotics FOLLOWING TREATMENT WITH ROCEPHIN AND FLAGYL Aspiration Pneumonia -completed antibiotics - No new fever DM II with hyperglycemia - Was hypoglycemic on admission - BG improved - Cont current insulin regimen and adjust as needed Seizure, new onset -probably 2/2 hypoglycemia recorded by EMS staff prior to admission -stable on Keppra -cont seizure precautions Critical Illness Myopathy -cont supportive care Thrombocytopenia -level improved, will monitor Transaminitis -levels improved -Hepatitis panel neg -Abd US neg Rhabdomyolysis -improved Hypophosphatemia -resolved Hypomagenesemia -Replaced HTN -uncontrolled, meds adjusted Moderate protein calorie malnutrition -on tube feeding -white sugar supervisor following Morbid obesity: Supportive care and counselling when awake DVT/GI prophylaxis with Lovenox and famotidine Poor Prognosis Trach/Peg and possible LTAC eval The high probability of a clinically significant, sudden or life threatening deterioration of the [Neurology, Pulmonary] system(s) required my full and direct attention, intervention and personal management. The aggregate critical care time was [35] minutes. This time is in addition to time spent performing reported procedures but includes the following: [x] Data Review and interpretation [x] Patient assessment and monitoring of vital signs [x] Documentation [x] Medication orders and management History Interval history: Patient seen and examined, Remains unresponsive although still spontaneously opens his eyes. No overnight issues reported. Patient remains off sedation and not responsive. Hospitalist Physical - Physical exam Narrative exam: VITAL SIGNS: Reviewed. GENERAL: The patient appeared well nourished and normally developed. Continues on mechanical ventilation. Ventilatory support- unresponsive. Vital signs as documented. HEAD: No signs of head trauma. EYES: Pupils are equal. Sluggish response to light.. EARS: Unable to assess MOUTH: ET tube in place. NECK: No adenopathy, no JVD. CHEST: Chest with clear breath sounds bilaterally. No wheezes, rales, or rhonchi. CARDIAC: Bradycardia with regular rate. S1 and S2, without murmurs, gallops, or rubs. VASCULAR: No Edema. Peripheral pulses normal and equal in all extremities. ABDOMEN: Soft, without detectable tenderness. No sign of distention. No rebound or guarding, and no masses palpated. Bowel Sounds normal. MUSCULOSKELETAL: Unable to assess. Extremities without clubbing, cyanosis or edema. NEUROLOGIC EXAM: Unresponsive, MOVES EXT. OPENS EYES BUT NOT FOLLOWING COMMAND PSYCHIATRIC: Unable to assess SKIN: No rash or lesions. - Constitutional Vitals: Temp Pulse Resp BP Pulse Ox 98.3 F 82 20 145/67 100 04/30/18 04:00 04/30/18 08:33 04/30/18 08:33 04/30/18 08:33 04/30/18 08:33 General appearance: Present: no acute distress, other (intubated on vent) Results - Labs CBC & Chem 7: 04/29/18 13:29 04/29/18 13:29 Labs: Laboratory Last Values WBC 7.6 K/mm3 (4.5-11.0) 04/29/18 13:29 RBC 3.86 M/mm3 (3.65-5.03) 04/29/18 13:29 Hgb 11.8 gm/dl (11.8-15.2) 04/29/18 13:29 Hct 34.8 % (35.5-45.6) L 04/29/18 13:29 MCV 90 fl (84-94) 04/29/18 13: MCH 31 pg (28-32) 04/29/18 13: MCHC 34 % (32-34) 04/29/18 13:29 RDW 15.1 % (13.2-15.2) 04/29/18 13:29 Plt Count 215 K/mm3 (140-440) 04/29/18 13:29 Lymph % (Auto) 25.6 % (13.4-35.0) 04/29/18 13:29 [place] % (Auto) 9.8 % (0.0-7.3) H 04/29/18 13:29 Eos % (Auto) 2.7 % (0.0-4.3) 04/29/18 13:29 Baso % (Auto) 0.4 % (0.0-1.8) 04/29/18 13:29 Lymph # 1.9 K/mm3 (1.2-5.4) 04/29/18 13:29 [place] # 0.7 K/mm3 (0.0-0.8) 04/29/18 13:29 Eos # 0.2 K/mm3 (0.0-0.4) 04/29/18 13:29 Baso # 0.0 K/mm3 (0.0-0.1) 04/29/18 13:29 Seg Neutrophils % 61.5 % (40.0-70.0) 04/29/18 13:29 Seg Neutrophils # 4.7 K/mm3 (1.8-7.7) 04/29/18 13:29 PT 13.8 Sec. (12.2-14.9) 04/29/18 21:03 INR 1.00 (0.87-1.13) 04/29/18 21:03 APTT 24.8 Sec. (24.2-36.6) 04/09/18 23:16 POC ABG pH 7.471 (7.35-7.45) H 04/25/18 13:06 POC ABG pCO2 43.5 (35-45) 04/25/18 13:06 POC ABG pO2 115 (80-105) H 04/25/18 13:06 POC ABG HCO3 31.7 04/25/18 13:06 POC ABG Total CO2 33 04/25/18 13:06 POC ABG O2 Sat 99 04/25/18 13:06 POC ABG Base Excess 8 04/25/18 13:06 FiO2 30 % 04/25/18 13:06 Sodium 135 mmol/L (137-145) L 04/29/18 13:29 Potassium 4.0 mmol/L (3.6-5.0) 04/29/18 13:29 Chloride 99.0 mmol/L (98-107) 04/29/18 13:29 Carbon Dioxide 29 mmol/L (22-30) 04/29/18 13:29 Anion Gap 11 mmol/L 04/29/18 13:29 BUN 14 mg/dL (9-20) 04/29/18 13:29 Creatinine 0.9 mg/dL (0.8-1.5) 04/29/18 13:29 Estimated GFR > 60 ml/min 04/29/18 13:29 BUN/Creatinine Ratio 16 % 04/29/18 13:29 Glucose 214 mg/dL (75-100) H 04/29/18 13:29 POC Glucose 166 (70-105) H 04/29/18 00:24 Hemoglobin A1c 6.4 % (4-6) H 04/11/18 04:28 Lactic Acid 1.70 mmol/L (0.7-2.0) 04/10/18 02:47 Calcium 8.8 mg/dL (8.4-10.2) 04/29/18 13:29 Phosphorus 3.60 mg/dL (2.5-4.5) 04/21/18 05:00 Magnesium 2.10 mg/dL (1.7-2.3) 04/21/18 05:00 Total Bilirubin 1.20 mg/dL (0.1-1.2) 04/18/18 11:00 Direct Bilirubin 0.3 mg/dL (0-0.2) H 04/18/18 11:00 Indirect Bilirubin 0.9 mg/dL 04/18/18 11:00 AST 87 units/L (5-40) H 04/18/18 11:00 ALT 39 units/L (7-56) 04/18/18 11:00 Alkaline Phosphatase 59 units/L (35-129) 04/18/18 11:00 Total Creatine Kinase 2247 units/L (55-170) H 04/14/18 05:00 CK-MB (CK-2) 30.0 ng/mL (0.0-4.0) H 04/10/18 10:37 CK-MB (CK-2) Rel Index 0.3 (0-4) 04/10/18 10:37 Troponin T < 0.010 ng/mL (0.00-0.029) 04/10/18 10:37 C-Reactive Protein 7.20 mg/dL (0.00-1.30) H 04/11/18 13:43 Total Protein 6.8 g/dL (6.3-8.2) 04/18/18 11:00 Albumin 3.7 g/dL (3.9-5) L 04/18/18 11:00 Albumin/Globulin Ratio 1.2 % 04/18/18 11:00 Vitamin B12 745.3 pg/mL (211-911) 04/24/18 16:50 TSH 47.760 mlU/mL (0.270-4.200) H 04/24/18 16:50 Free T4 0.10 ng/dL (0.76-1.46) L 04/24/18 16:50 Urine Color Yellow (Yellow) 04/10/18 01:07 Urine Turbidity Clear (Clear) 04/10/18 01:07 Urine pH 5.0 (5.0-7.0) 04/10/18 01:07 Ur Specific [place] 1.019 (1.003-1.030) 04/10/18 01:07 Urine Protein 100 mg/dl mg/dL (Negative) 04/10/18 01:07 Urine Glucose (UA) Neg mg/dL (Negative) 04/10/18 01:07 Urine Ketones Neg mg/dL (Negative) 04/10/18 01:07 Urine Blood Lg (Negative) 04/10/18 01:07 Urine Nitrite Neg (Negative) 04/10/18 01:07 Urine Bilirubin Neg (Negative) 04/10/18 01:07 Urine Urobilinogen < 2.0 mg/dL (<2.0) 04/10/18 01:07 Ur Leukocyte Esterase Neg (Negative) 04/10/18 01:07 Urine WBC (Auto) 1.0 /HPF (0.0-6.0) 04/10/18 01:07 Urine RBC (Auto) 9.0 /HPF (0.0-6.0) 04/10/18 01:07 U Epithel Cells (Auto) < 1.0 /HPF (0-13.0) 04/10/18 01:07 Urine Mucus Few /HPF 04/10/18 01:07 Levetiracetam 25.2 mcg/mL 04/12/18 20:37 Hepatitis A IgM Ab Non-reactive (NonReactive) 04/14/18 14:56 Hep Bs Antigen Non-reactive (Negative) 04/14/18 14:56 Hep B Core IgM Ab Non-reactive (NonReactive) 04/14/18 14:56 Hepatitis C Antibody Non-reactive (NonReactive) 04/14/18 14:56 Influenza A (Rapid) Negative (Negative) 04/11/18 15:08 Influenza B (Rapid) Negative (Negative) 04/11/18 15:08 Nutrition/Malnutrition Assess - Dietary Evaluation Nutrition/Malnutrition Findings: Nutrition Notes Start: 04/11/18 10:20 Freq: Status: Active Protocol: Document 04/25/18 15:33 (Rec: 04/25/18 15:37 [email or web address]) Co-Sign 04/25/18 15:33 LP Nutrition Notes Initial or Follow up Assessment Current Diagnosis Coronary Artery Disease, Diabetes,Hypertension, Respiratory Failure Other Pertinent Diagnosis Pneu, new onset seizures, acute encephalopathy Current Diet Vital AF 1.2 at 50ml/hr Labs/Tests B Pertinent Medications Reviewed Height 5 ft 9 in Weight 91.5 kg [place] Body Weight (kg) 72.72 BMI 29.7 Subjective/Other Information Pt f/u for stable TF. Observed Vital AF 1.2 infusing at 50 ml/hr. Per RN, pt. still tolerating well. Percent of energy/protein needs met: 98%/82% Burn Absent Trauma Absent #1 Nutrition Diagnosis Inadequate oral intake Diagnosis Progress(for reassessment Continues documentation) Is patient on ventilator? Yes Is Patient Ambulatory and/or Out of Bed No REE-([facility]confined [facility] bed) 1956.840 Kcal/Kg value to use for calculation 16 Approximate Energy Requirements Using 1464 kcal/Kg Calculation Used for Recommendations Kcal/kg Additional Notes Protein needs are 110-183g (1. 2-2g/kg) Fluid needs are 1ml/kcal Nutrition Intervention Change Diet Order: Vital AF 1.2 Nutrition Support: Vital 1.2 at 50 mL/hr. Water flush 80 mL q4h. Kcal 1,440 Protein (gm) 90 Carbohydrates (gm) 133 Fluid (mL) 973 Goal #1 Continue to meet at least 80% of kcal and protein needs Anticipated Discharge Needs: Unable to determine at this time Follow-Up By: 05/02/18 Additional Comments Follow for stable TF
[2018-04-30] MEDS: HumuLIN R SUB-Q SCH ×3 (10:03→20:24)
[2018-04-30] MEDS: COLACE FEEDTUBE SCH ×2 (10:04→22:12)
[2018-04-30] MEDS: PEPCID PO SCH ×2 (10:04→22:12)
[2018-04-30] MEDS: KEPPRA PO SCH ×2 (10:04→22:12)
[2018-04-30] MEDS: NORVASC FEEDTUBE SCH (10:04)
[2018-04-30] MEDS: LOVENOX SUB-Q SCH ×2 (10:05→10:25)
[2018-04-30] MEDS: LANTUS SUB-Q SCH (10:06)
[2018-04-30] MEDS: SODIUM CHLORIDE FLUSH SYRINGE 10 ML IV SCH ×2 (10:07→22:32)
[2018-04-30] MEDS: TRANSDERM-SCOP TD SCH (10:12)
[2018-04-30] MEDS: PROVIGIL PO SCH (10:22)
--- NOTE | 2018-04-30 13:10 | Progress Note ---
Assessment and Plan 78 year old male presented on 11/07/18 with hypoglycemic encephalopathy, seizures, hypothyroidism. It has taken him a while to awaken. Currently he is more awake, moving around in the bed. He is scheduled for PEG and trach. today. He is recovering from severe, prolonged hypoglycemia and hypothyroidism. Plan - Continue present treatment. Subjective Date of service: 04/30/18 Principal diagnosis: Ac Hypoxemic Resp Failure; Seizures; Encephalopathy; DM II; Rhabdomyolysis Interval history: 78 year old male with history of insulin dependent diabetes, hypertension and coronary artery disease, presented on 04/09/18, found down at home and found to be hypoglycemic. CT scans have been unremarkable. He was also found to be hypothyroid and has been receiving thyroid replacement. Objective - Exam Narrative Exam: Alert, eyes open. Focuses on examiner. Seems to follow commands intermittently. Moves all extremities. left leg moreso than right. Reflexes +1in lower extremities. Withdraws to painful stimuli. - Vital Sign Vital Signs - 12hr 04/30/18 04/30/18 04/30/18 02:01 03:00 03:28 Temperature 99.4 F Pulse Rate 72 76 Pulse Rate [ Apical] Respiratory 12 16 Rate Blood Pressure 175/67 175/67 O2 Sat by Pulse 100 100 Oximetry 04/30/18 04/30/18 04/30/18 04:00 04:01 04:11 Temperature 98.3 F Pulse Rate 69 81 78 Pulse Rate [ 67 Apical] Respiratory 18 6 L Rate Blood Pressure 169/95 175/67 O2 Sat by Pulse 98 100 100 Oximetry 04/30/18 04/30/18 04/30/18 05:01 05:30 06:01 Temperature Pulse Rate 78 74 70 Pulse Rate [ Apical] Respiratory 13 12 Rate Blood Pressure 163/76 163/76 143/71 O2 Sat by Pulse 99 100 Oximetry 04/30/18 04/30/18 04/30/18 07:00 08:00 08:30 Temperature 97.8 F Pulse Rate 76 73 81 Pulse Rate [ 71 Apical] Respiratory 15 16 Rate Blood Pressure 153/72 145/67 145/67 O2 Sat by Pulse 100 100 100 Oximetry 04/30/18 04/30/18 04/30/18 08:33 09:00 10:01 Temperature Pulse Rate 82 81 63 Pulse Rate [ Apical] Respiratory 20 10 L 16 Rate Blood Pressure 145/67 142/73 122/64 O2 Sat by Pulse 100 100 100 Oximetry 04/30/18 04/30/18 10:04 13:03 Temperature Pulse Rate 63 83 Pulse Rate [ Apical] Respiratory 21 Rate Blood Pressure 122/64 151/66 O2 Sat by Pulse 100 Oximetry - Laboratory Findings CBC and BMP: 04/29/18 13:29 04/29/18 13:29 Abnormal Lab Findings: Abnormal Labs 04/09/18 04/09/18 04/09/18 23:16 23:16 23:16 WBC 13.6 H Hct MCHC RDW Plt Count Lymph % (Auto) 9.4 L [place] % (Auto) Lymph # [place] # Seg Neutrophils % 87.3 H Seg Neutrophils # 11.9 H POC ABG pH POC ABG pCO2 POC ABG pO2 Sodium 132 L Potassium Chloride 92.7 L Carbon Dioxide BUN Glucose 143 H POC Glucose Hemoglobin A1c Lactic Acid 2.10 H* Calcium Phosphorus Magnesium Total Bilirubin 2.20 H Direct Bilirubin AST 107 H Total Creatine Kinase CK-MB (CK-2) C-Reactive Protein Total Protein Albumin TSH Free T4 04/10/18 04/10/18 04/10/18 00:38 00:55 01:13 WBC Hct MCHC RDW Plt Count Lymph % (Auto) [place] % (Auto) Lymph # [place] # Seg Neutrophils % Seg Neutrophils # POC ABG pH POC ABG pCO2 POC ABG pO2 Sodium Potassium Chloride Carbon Dioxide BUN Glucose POC Glucose 117 H 121 H Hemoglobin A1c Lactic Acid 2.10 H* Calcium Phosphorus Magnesium Total Bilirubin Direct Bilirubin AST Total Creatine Kinase CK-MB (CK-2) C-Reactive Protein Total Protein Albumin TSH Free T4 04/10/18 04/10/18 04/10/18 02:10 03:51 04:07 WBC 14.0 H Hct MCHC RDW Plt Count Lymph % (Auto) 7.5 L [place] % (Auto) Lymph # 1.1 L [place] # 1.0 H Seg Neutrophils % 84.9 H Seg Neutrophils # 11.8 H POC ABG pH POC ABG pCO2 POC ABG pO2 Sodium Potassium Chloride Carbon Dioxide BUN Glucose POC Glucose 153 H 158 H Hemoglobin A1c Lactic Acid Calcium Phosphorus Magnesium Total Bilirubin Direct Bilirubin AST Total Creatine Kinase CK-MB (CK-2) C-Reactive Protein Total Protein Albumin TSH Free T4 04/10/18 04/10/18 04/10/18 04:07 06:56 09:48 WBC Hct MCHC RDW Plt Count Lymph % (Auto) [place] % (Auto) Lymph # [place] # Seg Neutrophils % Seg Neutrophils # POC ABG pH POC ABG pCO2 POC ABG pO2 Sodium 130 L Potassium Chloride 93.4 L Carbon Dioxide BUN Glucose 180 H POC Glucose 251 H 245 H Hemoglobin A1c Lactic Acid Calcium 7.9 L D Phosphorus Magnesium Total Bilirubin Direct Bilirubin AST Total Creatine Kinase 7857 H CK-MB (CK-2) 34.3 H C-Reactive Protein Total Protein Albumin TSH Free T4 04/10/18 04/10/18 04/10/18 10:37 12:44 17:31 WBC Hct MCHC RDW Plt Count Lymph % (Auto) [place] % (Auto) Lymph # [place] # Seg Neutrophils % Seg Neutrophils # POC ABG pH POC ABG pCO2 45.6 H POC ABG pO2 374 H Sodium Potassium Chloride Carbon Dioxide BUN Glucose POC Glucose 348 H Hemoglobin A1c Lactic Acid Calcium Phosphorus Magnesium Total Bilirubin Direct Bilirubin AST Total Creatine Kinase 9880 H CK-MB (CK-2) 30.0 H C-Reactive Protein Total Protein Albumin TSH Free T4 04/10/18 04/11/18 04/11/18 23:36 03:52 04:28 WBC 12.2 H Hct MCHC RDW Plt Count 132 L Lymph % (Auto) [place] % (Auto) 10.2 H Lymph # [place] # 1.2 H Seg Neutrophils % 75.1 H Seg Neutrophils # 9.1 H POC ABG pH 7.495 H POC ABG pCO2 32.4 L POC ABG pO2 Sodium Potassium Chloride Carbon Dioxide BUN Glucose POC Glucose 148 H Hemoglobin A1c Lactic Acid Calcium Phosphorus Magnesium Total Bilirubin Direct Bilirubin AST Total Creatine Kinase CK-MB (CK-2) C-Reactive Protein Total Protein Albumin TSH Free T4 04/11/18 04/11/18 04/11/18 04:28 04:28 05:22 WBC Hct MCHC RDW Plt Count Lymph % (Auto) [place] % (Auto) Lymph # [place] # Seg Neutrophils % Seg Neutrophils # POC ABG pH POC ABG pCO2 POC ABG pO2 Sodium 133 L Potassium 3.5 L Chloride 95.1 L Carbon Dioxide BUN 7 L Glucose 206 H POC Glucose 178 H Hemoglobin A1c 6.4 H Lactic Acid Calcium 7.7 L Phosphorus 1.80 L Magnesium 1.50 L Total Bilirubin 4.10 H Direct Bilirubin AST 168 H Total Creatine Kinase 9352 H CK-MB (CK-2) C-Reactive Protein Total Protein Albumin 3.4 L TSH Free T4 04/11/18 04/11/18 04/11/18 11:28 13:43 17:30 WBC Hct MCHC RDW Plt Count Lymph % (Auto) [place] % (Auto) Lymph # [place] # Seg Neutrophils % Seg Neutrophils # POC ABG pH POC ABG pCO2 POC ABG pO2 Sodium Potassium Chloride Carbon Dioxide BUN Glucose POC Glucose 196 H 142 H Hemoglobin A1c Lactic Acid Calcium Phosphorus Magnesium Total Bilirubin Direct Bilirubin AST Total Creatine Kinase CK-MB (CK-2) C-Reactive Protein 7.20 H Total Protein Albumin TSH Free T4 04/11/18 04/11/18 04/12/18 18:59 23:23 04:00 WBC Hct MCHC RDW Plt Count Lymph % (Auto) [place] % (Auto) Lymph # [place] # Seg Neutrophils % Seg Neutrophils # POC ABG pH 7.489 H POC ABG pCO2 34.5 L POC ABG pO2 Sodium Potassium 3.3 L Chloride Carbon Dioxide BUN 6 L Glucose 151 H POC Glucose 129 H Hemoglobin A1c Lactic Acid Calcium 7.3 L Phosphorus 2.00 L Magnesium Total Bilirubin 2.80 H Direct Bilirubin AST 121 H Total Creatine Kinase 5177 H CK-MB (CK-2) C-Reactive Protein Total Protein 5.9 L Albumin 3.1 L TSH Free T4 04/12/18 04/12/18 04/12/18 04:00 04:04 05:21 WBC Hct 34.9 L MCHC 35 H RDW Plt Count 128 L Lymph % (Auto) [place] % (Auto) 10.6 H Lymph # [place] # 0.9 H Seg Neutrophils % Seg Neutrophils # POC ABG pH 7.454 H POC ABG pCO2 POC ABG pO2 Sodium Potassium Chloride Carbon Dioxide BUN Glucose POC Glucose 136 H Hemoglobin A1c Lactic Acid Calcium Phosphorus Magnesium Total Bilirubin Direct Bilirubin AST Total Creatine Kinase CK-MB (CK-2) C-Reactive Protein Total Protein Albumin TSH Free T4 04/12/18 04/13/18 04/13/18 11:23 00:21 04:57 WBC Hct MCHC RDW Plt Count Lymph % (Auto) [place] % (Auto) Lymph # [place] # Seg Neutrophils % Seg Neutrophils # POC ABG pH POC ABG pCO2 34.7 L POC ABG pO2 125 H Sodium Potassium Chloride Carbon Dioxide BUN Glucose POC Glucose 166 H 143 H Hemoglobin A1c Lactic Acid Calcium Phosphorus Magnesium Total Bilirubin Direct Bilirubin AST Total Creatine Kinase CK-MB (CK-2) C-Reactive Protein Total Protein Albumin TSH Free T4 04/13/18 04/13/18 04/13/18 05:02 05:02 12:16 WBC Hct MCHC RDW Plt Count Lymph % (Auto) [place] % (Auto) Lymph # [place] # Seg Neutrophils % Seg Neutrophils # POC ABG pH POC ABG pCO2 POC ABG pO2 Sodium Potassium Chloride Carbon Dioxide BUN Glucose POC Glucose 161 H 170 H Hemoglobin A1c Lactic Acid Calcium Phosphorus Magnesium Total Bilirubin Direct Bilirubin AST Total Creatine Kinase 3456 H CK-MB (CK-2) C-Reactive Protein Total Protein Albumin TSH Free T4 04/13/18 04/13/18 04/14/18 18:52 23:09 04:35 WBC Hct MCHC RDW Plt Count Lymph % (Auto) [place] % (Auto) Lymph # [place] # Seg Neutrophils % Seg Neutrophils # POC ABG pH 7.467 H POC ABG pCO2 POC ABG pO2 Sodium Potassium Chloride Carbon Dioxide BUN Glucose POC Glucose 196 H 219 H Hemoglobin A1c Lactic Acid Calcium Phosphorus Magnesium Total Bilirubin Direct Bilirubin AST Total Creatine Kinase CK-MB (CK-2) C-Reactive Protein Total Protein Albumin TSH Free T4 04/14/18 04/14/18 04/14/18 05:00 05:26 11:20 WBC Hct MCHC RDW Plt Count Lymph % (Auto) [place] % (Auto) Lymph # [place] # Seg Neutrophils % Seg Neutrophils # POC ABG pH POC ABG pCO2 POC ABG pO2 Sodium Potassium Chloride Carbon Dioxide BUN Glucose POC Glucose 249 H 260 H Hemoglobin A1c Lactic Acid Calcium Phosphorus Magnesium Total Bilirubin Direct Bilirubin AST Total Creatine Kinase 2247 H CK-MB (CK-2) C-Reactive Protein Total Protein Albumin TSH Free T4 04/14/18 04/14/18 04/14/18 17:04 17:51 23:53 WBC Hct MCHC RDW Plt Count Lymph % (Auto) [place] % (Auto) Lymph # [place] # Seg Neutrophils % Seg Neutrophils # POC ABG pH POC ABG pCO2 POC ABG pO2 79 L Sodium Potassium Chloride Carbon Dioxide BUN Glucose POC Glucose 284 H 203 H Hemoglobin A1c Lactic Acid Calcium Phosphorus Magnesium Total Bilirubin Direct Bilirubin AST Total Creatine Kinase CK-MB (CK-2) C-Reactive Protein Total Protein Albumin TSH Free T4 04/15/18 04/15/18 04/15/18 04:24 05:26 12:56 WBC Hct MCHC RDW Plt Count Lymph % (Auto) [place] % (Auto) Lymph # [place] # Seg Neutrophils % Seg Neutrophils # POC ABG pH POC ABG pCO2 45.4 H POC ABG pO2 78 L Sodium Potassium Chloride Carbon Dioxide BUN Glucose POC Glucose 194 H 200 H Hemoglobin A1c Lactic Acid Calcium Phosphorus Magnesium Total Bilirubin Direct Bilirubin AST Total Creatine Kinase CK-MB (CK-2) C-Reactive Protein Total Protein Albumin TSH Free T4 04/15/18 04/15/18 04/16/18 17:46 23:57 05:08 WBC Hct MCHC RDW Plt Count Lymph % (Auto) [place] % (Auto) Lymph # [place] # Seg Neutrophils % Seg Neutrophils # POC ABG pH POC ABG pCO2 POC ABG pO2 Sodium Potassium Chloride Carbon Dioxide BUN Glucose POC Glucose 118 H 204 H 221 H Hemoglobin A1c Lactic Acid Calcium Phosphorus Magnesium Total Bilirubin Direct Bilirubin AST Total Creatine Kinase CK-MB (CK-2) C-Reactive Protein Total Protein Albumin TSH Free T4 04/16/18 04/16/18 04/16/18 05:16 12:23 13:07 WBC Hct MCHC RDW Plt Count Lymph % (Auto) [place] % (Auto) Lymph # [place] # Seg Neutrophils % Seg Neutrophils # POC ABG pH 7.456 H POC ABG pCO2 46.7 H POC ABG pO2 Sodium Potassium Chloride Carbon Dioxide BUN Glucose POC Glucose 271 H Hemoglobin A1c Lactic Acid Calcium Phosphorus Magnesium Total Bilirubin Direct Bilirubin AST Total Creatine Kinase CK-MB (CK-2) C-Reactive Protein Total Protein Albumin TSH Free T4 04/16/18 04/17/18 04/17/18 19:14 00:08 05:46 WBC Hct MCHC RDW Plt Count Lymph % (Auto) [place] % (Auto) Lymph # [place] # Seg Neutrophils % Seg Neutrophils # POC ABG pH POC ABG pCO2 POC ABG pO2 Sodium Potassium Chloride Carbon Dioxide BUN Glucose POC Glucose 221 H 238 H 274 H Hemoglobin A1c Lactic Acid Calcium Phosphorus Magnesium Total Bilirubin Direct Bilirubin AST Total Creatine Kinase CK-MB (CK-2) C-Reactive Protein Total Protein Albumin TSH Free T4 04/17/18 04/17/18 04/17/18 13:50 13:59 14:20 WBC Hct MCHC RDW Plt Count Lymph % (Auto) [place] % (Auto) Lymph # [place] # Seg Neutrophils % Seg Neutrophils # POC ABG pH 7.474 H POC ABG pCO2 POC ABG pO2 Sodium Potassium 3.4 L Chloride 93.6 L Carbon Dioxide 33 H BUN Glucose 305 H POC Glucose 315 H Hemoglobin A1c Lactic Acid Calcium Phosphorus Magnesium Total Bilirubin Direct Bilirubin AST Total Creatine Kinase CK-MB (CK-2) C-Reactive Protein Total Protein Albumin TSH Free T4 04/17/18 04/17/18 04/18/18 17:04 23:26 04:20 WBC Hct MCHC RDW Plt Count Lymph % (Auto) [place] % (Auto) Lymph # [place] # Seg Neutrophils % Seg Neutrophils # POC ABG pH 7.473 H POC ABG pCO2 POC ABG pO2 Sodium Potassium Chloride Carbon Dioxide BUN Glucose POC Glucose 280 H 284 H Hemoglobin A1c Lactic Acid Calcium Phosphorus Magnesium Total Bilirubin Direct Bilirubin AST Total Creatine Kinase CK-MB (CK-2) C-Reactive Protein Total Protein Albumin TSH Free T4 04/18/18 04/18/18 04/18/18 05:14 08:32 11:00 WBC Hct MCHC RDW Plt Count Lymph % (Auto) [place] % (Auto) Lymph # [place] # Seg Neutrophils % Seg Neutrophils # POC ABG pH POC ABG pCO2 POC ABG pO2 Sodium Potassium Chloride Carbon Dioxide BUN Glucose POC Glucose 286 H 296 H Hemoglobin A1c Lactic Acid Calcium Phosphorus Magnesium Total Bilirubin Direct Bilirubin 0.3 H AST 87 H Total Creatine Kinase CK-MB (CK-2) C-Reactive Protein Total Protein Albumin 3.7 L TSH Free T4 04/18/18 04/18/18 04/19/18 12:03 18:15 00:08 WBC Hct MCHC RDW Plt Count Lymph % (Auto) [place] % (Auto) Lymph # [place] # Seg Neutrophils % Seg Neutrophils # POC ABG pH POC ABG pCO2 POC ABG pO2 Sodium Potassium Chloride Carbon Dioxide BUN Glucose POC Glucose 353 H 327 H 331 H Hemoglobin A1c Lactic Acid Calcium Phosphorus Magnesium Total Bilirubin Direct Bilirubin AST Total Creatine Kinase CK-MB (CK-2) C-Reactive Protein Total Protein Albumin TSH Free T4 04/19/18 04/19/18 04/19/18 04:46 05:26 11:48 WBC Hct MCHC RDW Plt Count Lymph % (Auto) [place] % (Auto) Lymph # [place] # Seg Neutrophils % Seg Neutrophils # POC ABG pH 7.497 H POC ABG pCO2 POC ABG pO2 119 H Sodium Potassium Chloride Carbon Dioxide BUN Glucose POC Glucose 323 H 266 H Hemoglobin A1c Lactic Acid Calcium Phosphorus Magnesium Total Bilirubin Direct Bilirubin AST Total Creatine Kinase CK-MB (CK-2) C-Reactive Protein Total Protein Albumin TSH Free T4 04/19/18 04/19/18 04/20/18 17:52 23:37 00:07 WBC Hct MCHC RDW Plt Count Lymph % (Auto) [place] % (Auto) Lymph # [place] # Seg Neutrophils % Seg Neutrophils # POC ABG pH POC ABG pCO2 POC ABG pO2 Sodium Potassium Chloride Carbon Dioxide BUN Glucose POC Glucose 284 H 285 H 312 H Hemoglobin A1c Lactic Acid Calcium Phosphorus Magnesium Total Bilirubin Direct Bilirubin AST Total Creatine Kinase CK-MB (CK-2) C-Reactive Protein Total Protein Albumin TSH Free T4 04/20/18 04/20/18 04/20/18 04:09 04:09 04:37 WBC Hct 34.7 L MCHC 35 H RDW Plt Count Lymph % (Auto) [place] % (Auto) Lymph # [place] # Seg Neutrophils % Seg Neutrophils # POC ABG pH POC ABG pCO2 POC ABG pO2 Sodium Potassium 3.5 L Chloride 95.7 L Carbon Dioxide 34 H BUN Glucose 286 H POC Glucose 267 H Hemoglobin A1c Lactic Acid Calcium Phosphorus Magnesium Total Bilirubin Direct Bilirubin AST Total Creatine Kinase CK-MB (CK-2) C-Reactive Protein Total Protein Albumin TSH Free T4 04/20/18 04/20/18 04/20/18 12:32 17:54 21:07 WBC Hct MCHC RDW Plt Count Lymph % (Auto) [place] % (Auto) Lymph # [place] # Seg Neutrophils % Seg Neutrophils # POC ABG pH POC ABG pCO2 POC ABG pO2 Sodium Potassium Chloride Carbon Dioxide BUN Glucose POC Glucose 220 H 298 H 187 H Hemoglobin A1c Lactic Acid Calcium Phosphorus Magnesium Total Bilirubin Direct Bilirubin AST Total Creatine Kinase CK-MB (CK-2) C-Reactive Protein Total Protein Albumin TSH Free T4 04/21/18 04/21/18 04/21/18 00:04 05:00 05:41 WBC Hct MCHC RDW Plt Count Lymph % (Auto) [place] % (Auto) Lymph # [place] # Seg Neutrophils % Seg Neutrophils # POC ABG pH POC ABG pCO2 POC ABG pO2 Sodium Potassium Chloride 95.2 L Carbon Dioxide 34 H BUN Glucose 179 H POC Glucose 183 H 166 H Hemoglobin A1c Lactic Acid Calcium Phosphorus Magnesium Total Bilirubin Direct Bilirubin AST Total Creatine Kinase CK-MB (CK-2) C-Reactive Protein Total Protein Albumin TSH Free T4 04/21/18 04/21/18 04/21/18 11:55 18:09 23:36 WBC Hct MCHC RDW Plt Count Lymph % (Auto) [place] % (Auto) Lymph # [place] # Seg Neutrophils % Seg Neutrophils # POC ABG pH POC ABG pCO2 POC ABG pO2 Sodium Potassium Chloride Carbon Dioxide BUN Glucose POC Glucose 219 H 247 H 229 H Hemoglobin A1c Lactic Acid Calcium Phosphorus Magnesium Total Bilirubin Direct Bilirubin AST Total Creatine Kinase CK-MB (CK-2) C-Reactive Protein Total Protein Albumin TSH Free T4 04/22/18 04/22/18 04/22/18 04:07 04:07 05:08 WBC Hct MCHC 35 H RDW 15.3 H Plt Count Lymph % (Auto) [place] % (Auto) Lymph # [place] # Seg Neutrophils % Seg Neutrophils # POC ABG pH POC ABG pCO2 POC ABG pO2 Sodium Potassium Chloride 97.4 L Carbon Dioxide 31 H BUN Glucose 177 H POC Glucose 200 H Hemoglobin A1c Lactic Acid Calcium Phosphorus Magnesium Total Bilirubin Direct Bilirubin AST Total Creatine Kinase CK-MB (CK-2) C-Reactive Protein Total Protein Albumin TSH Free T4 04/22/18 04/22/18 04/23/18 12:15 18:04 04:55 WBC Hct MCHC RDW Plt Count Lymph % (Auto) [place] % (Auto) Lymph # [place] # Seg Neutrophils % Seg Neutrophils # POC ABG pH POC ABG pCO2 POC ABG pO2 Sodium Potassium Chloride Carbon Dioxide BUN 23 H Glucose 274 H POC Glucose 189 H 191 H Hemoglobin A1c Lactic Acid Calcium Phosphorus Magnesium Total Bilirubin Direct Bilirubin AST Total Creatine Kinase CK-MB (CK-2) C-Reactive Protein Total Protein Albumin TSH Free T4 04/23/18 04/23/18 04/23/18 05:21 11:06 17:46 WBC Hct MCHC RDW Plt Count Lymph % (Auto) [place] % (Auto) Lymph # [place] # Seg Neutrophils % Seg Neutrophils # POC ABG pH POC ABG pCO2 POC ABG pO2 Sodium Potassium Chloride Carbon Dioxide BUN Glucose POC Glucose 143 H 176 H 142 H Hemoglobin A1c Lactic Acid Calcium Phosphorus Magnesium Total Bilirubin Direct Bilirubin AST Total Creatine Kinase CK-MB (CK-2) C-Reactive Protein Total Protein Albumin TSH Free T4 04/23/18 04/24/18 04/24/18 23:35 06:02 11:37 WBC Hct MCHC RDW Plt Count Lymph % (Auto) [place] % (Auto) Lymph # [place] # Seg Neutrophils % Seg Neutrophils # POC ABG pH POC ABG pCO2 POC ABG pO2 Sodium Potassium Chloride Carbon Dioxide BUN Glucose POC Glucose 127 H 175 H 188 H Hemoglobin A1c Lactic Acid Calcium Phosphorus Magnesium Total Bilirubin Direct Bilirubin AST Total Creatine Kinase CK-MB (CK-2) C-Reactive Protein Total Protein Albumin TSH Free T4 04/24/18 04/24/18 04/24/18 16:50 18:40 20:23 WBC Hct MCHC RDW Plt Count Lymph % (Auto) [place] % (Auto) Lymph # [place] # Seg Neutrophils % Seg Neutrophils # POC ABG pH POC ABG pCO2 POC ABG pO2 Sodium Potassium Chloride Carbon Dioxide BUN Glucose POC Glucose 134 H 148 H Hemoglobin A1c Lactic Acid Calcium Phosphorus Magnesium Total Bilirubin Direct Bilirubin AST Total Creatine Kinase CK-MB (CK-2) C-Reactive Protein Total Protein Albumin TSH 47.760 H Free T4 0.10 L 04/24/18 04/25/18 04/25/18 23:14 05:22 05:22 WBC Hct MCHC 35 H RDW 15.4 H Plt Count Lymph % (Auto) [place] % (Auto) Lymph # [place] # Seg Neutrophils % Seg Neutrophils # POC ABG pH POC ABG pCO2 POC ABG pO2 Sodium 136 L Potassium Chloride 95.0 L Carbon Dioxide BUN Glucose 210 H POC Glucose 145 H Hemoglobin A1c Lactic Acid Calcium Phosphorus Magnesium Total Bilirubin Direct Bilirubin AST Total Creatine Kinase CK-MB (CK-2) C-Reactive Protein Total Protein Albumin TSH Free T4 04/25/18 04/25/18 04/25/18 05:44 12:19 13:06 WBC Hct MCHC RDW Plt Count Lymph % (Auto) [place] % (Auto) Lymph # [place] # Seg Neutrophils % Seg Neutrophils # POC ABG pH 7.471 H POC ABG pCO2 POC ABG pO2 115 H Sodium Potassium Chloride Carbon Dioxide BUN Glucose POC Glucose 176 H 231 H Hemoglobin A1c Lactic Acid Calcium Phosphorus Magnesium Total Bilirubin Direct Bilirubin AST Total Creatine Kinase CK-MB (CK-2) C-Reactive Protein Total Protein Albumin TSH Free T4 04/25/18 04/25/18 04/26/18 17:54 20:09 00:01 WBC Hct MCHC RDW Plt Count Lymph % (Auto) [place] % (Auto) Lymph # [place] # Seg Neutrophils % Seg Neutrophils # POC ABG pH POC ABG pCO2 POC ABG pO2 Sodium Potassium Chloride Carbon Dioxide BUN Glucose POC Glucose 196 H 119 H 174 H Hemoglobin A1c Lactic Acid Calcium Phosphorus Magnesium Total Bilirubin Direct Bilirubin AST Total Creatine Kinase CK-MB (CK-2) C-Reactive Protein Total Protein Albumin TSH Free T4 04/26/18 04/26/18 04/26/18 05:10 12:03 15:20 WBC Hct MCHC RDW Plt Count Lymph % (Auto) [place] % (Auto) Lymph # [place] # Seg Neutrophils % Seg Neutrophils # POC ABG pH POC ABG pCO2 POC ABG pO2 Sodium Potassium Chloride Carbon Dioxide BUN Glucose POC Glucose 212 H 222 H 113 H Hemoglobin A1c Lactic Acid Calcium Phosphorus Magnesium Total Bilirubin Direct Bilirubin AST Total Creatine Kinase CK-MB (CK-2) C-Reactive Protein Total Protein Albumin TSH Free T4 04/26/18 04/26/18 04/27/18 18:08 23:39 05:10 WBC Hct MCHC RDW Plt Count Lymph % (Auto) [place] % (Auto) Lymph # [place] # Seg Neutrophils % Seg Neutrophils # POC ABG pH POC ABG pCO2 POC ABG pO2 Sodium Potassium Chloride Carbon Dioxide BUN Glucose POC Glucose 110 H 165 H 137 H Hemoglobin A1c Lactic Acid Calcium Phosphorus Magnesium Total Bilirubin Direct Bilirubin AST Total Creatine Kinase CK-MB (CK-2) C-Reactive Protein Total Protein Albumin TSH Free T4 04/27/18 04/27/18 04/27/18 10:04 11:23 17:36 WBC Hct MCHC RDW Plt Count Lymph % (Auto) [place] % (Auto) Lymph # [place] # Seg Neutrophils % Seg Neutrophils # POC ABG pH POC ABG pCO2 POC ABG pO2 Sodium Potassium Chloride Carbon Dioxide BUN Glucose POC Glucose 190 H 258 H 198 H Hemoglobin A1c Lactic Acid Calcium Phosphorus Magnesium Total Bilirubin Direct Bilirubin AST Total Creatine Kinase CK-MB (CK-2) C-Reactive Protein Total Protein Albumin TSH Free T4 04/27/18 04/28/18 04/28/18 23:23 05:19 13:06 WBC Hct MCHC RDW Plt Count Lymph % (Auto) [place] % (Auto) Lymph # [place] # Seg Neutrophils % Seg Neutrophils # POC ABG pH POC ABG pCO2 POC ABG pO2 Sodium Potassium Chloride Carbon Dioxide BUN Glucose POC Glucose 131 H 178 H 194 H Hemoglobin A1c Lactic Acid Calcium Phosphorus Magnesium Total Bilirubin Direct Bilirubin AST Total Creatine Kinase CK-MB (CK-2) C-Reactive Protein Total Protein Albumin TSH Free T4 04/28/18 04/29/18 04/29/18 16:59 00:24 13:29 WBC Hct 34.8 L MCHC RDW Plt Count Lymph % (Auto) [place] % (Auto) 9.8 H Lymph # [place] # Seg Neutrophils % Seg Neutrophils # POC ABG pH POC ABG pCO2 POC ABG pO2 Sodium Potassium Chloride Carbon Dioxide BUN Glucose POC Glucose 155 H 166 H Hemoglobin A1c Lactic Acid Calcium Phosphorus Magnesium Total Bilirubin Direct Bilirubin AST Total Creatine Kinase CK-MB (CK-2) C-Reactive Protein Total Protein Albumin TSH Free T4 04/29/18 13:29 WBC Hct MCHC RDW Plt Count Lymph % (Auto) [place] % (Auto) Lymph # [place] # Seg Neutrophils % Seg Neutrophils # POC ABG pH POC ABG pCO2 POC ABG pO2 Sodium 135 L Potassium Chloride Carbon Dioxide BUN Glucose 214 H POC Glucose Hemoglobin A1c Lactic Acid Calcium Phosphorus Magnesium Total Bilirubin Direct Bilirubin AST Total Creatine Kinase CK-MB (CK-2) C-Reactive Protein Total Protein Albumin TSH Free T4
[2018-04-30] MEDS ORDERED: WATER FOR IRRIG STERILE IR ONE (13:18)
[2018-04-30] MEDS ORDERED: NACL 0.9% 1000 ML 1,000 ML ONE (13:19)
--- NOTE | 2018-04-30 13:20 | Progress Note ---
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 daily - tracheostomy today - hold daytime PSV trials till tomorrow - prn CXR's & ABG's at this point (post trach CXR reviewed and addressed; no acute process) - follow clinically of AB's s/p empiric therapy (ID input appreciated) - continue to wean supplemental oxygen to keep O2 sats > 90% - continue bronchodilators with pulmonary hygiene per RT - VAP bundle addressed - continue daily SAT's - titrate sedatives for RASS 0 to -1 (on hold re: AMS) - neurology evaluation ongoing - PICC line pulled - GI & VTE prophylaxis - trend CpK level - continue IVF fluids re: Rhabdo - replace electrolytes - continue AED's (Keppra) - continue pertinent home med's - continue enteral nutrition as tolerated - continue accuchecks q6h with glycemic control per SSI for target BG 140-180 mg/dL - will likely need outpatient PSG to evaluate JOE - continue other care per attending / other net developer consultant's ....... re-evaluate in am & prn CODE STATUS: FULL CODE The high probability of a clinically significant, sudden or life-threatening deterioration of the [cardiac, neurology] system(s) required my full and direct attention, intervention and personal management. The aggregate critical care time was [35] minutes without overlap. Time includes spent on; [x] Data Review and interpretation [x] Patient assessment and monitoring of vital signs [x] Documentation [x] Medication orders and management Subjective Date of service: 04/30/18 Principal diagnosis: Ac Hypoxemic Resp Failure; Seizures; Encephalopathy; DM II; Rhabdomyolysis Interval history: Patient is seen today for: Acute Hypoxemic Respiratory Failure; New Onset Seizures (presumed secondary to Hypoglycemia); Acute Encephalopathy (Toxic - Metabolic); Diabetes Type II; Rhabdomyolysis Seen and examined at bedside; 24hour events reviewed; nursing and respiratory care staff consulted; no adverse overnight events reported to me; resting peacefully in bed; for trach and PEG today; no emesis or overt aspiration; no seizures; AMS is persistent; tube feeds on hold for procedure Objective Vital Signs - 12hr 04/30/18 04/30/18 04/30/18 02:01 03:00 03:28 Temperature 99.4 F Pulse Rate 72 76 Pulse Rate [ Apical] Respiratory 12 16 Rate Blood Pressure 175/67 175/67 O2 Sat by Pulse 100 100 Oximetry 04/30/18 04/30/18 04/30/18 04:00 04:01 04:11 Temperature 98.3 F Pulse Rate 69 81 78 Pulse Rate [ 67 Apical] Respiratory 18 6 L Rate Blood Pressure 169/95 175/67 O2 Sat by Pulse 98 100 100 Oximetry 04/30/18 04/30/18 04/30/18 05:01 05:30 06:01 Temperature Pulse Rate 78 74 70 Pulse Rate [ Apical] Respiratory 13 12 Rate Blood Pressure 163/76 163/76 143/71 O2 Sat by Pulse 99 100 Oximetry 04/30/18 04/30/18 04/30/18 07:00 08:00 08:30 Temperature 97.8 F Pulse Rate 76 73 81 Pulse Rate [ 71 Apical] Respiratory 15 16 Rate Blood Pressure 153/72 145/67 145/67 O2 Sat by Pulse 100 100 100 Oximetry 04/30/18 04/30/18 04/30/18 08:33 09:00 10:01 Temperature Pulse Rate 82 81 63 Pulse Rate [ Apical] Respiratory 20 10 L 16 Rate Blood Pressure 145/67 142/73 122/64 O2 Sat by Pulse 100 100 100 Oximetry 04/30/18 04/30/18 10:04 13:03 Temperature Pulse Rate 63 83 Pulse Rate [ Apical] Respiratory 21 Rate Blood Pressure 122/64 151/66 O2 Sat by Pulse 100 Oximetry Constitutional: no acute distress, other (Elderly looking AAM, normocephalic and atraumatic with mildly increased respiratory effort on MVS) Eyes: non-icteric ENT: oropharynx moist, other (ETT 23 cm STEPHANIE) Neck: supple, no lymphadenopathy, no JVD, other (large neck circumference) Effort: mildly labored Ascultation: Bilateral: diminished breath sounds, rhonchi Percussion: Bilateral: not dull Cardiovascular: regular rate and rhythm Gastrointestinal: normoactive bowel sounds, soft, non-tender, non-distended, other (protuberant) Integumentary: normal Extremities: no cyanosis, no edema, pulses normal, no ischemia or petechiae Neurologic: non-focal exam (grossly), unable to assess, other (opens eyes spontaneously, not following my prompts) Psychiatric: other (unable to assess) CBC and BMP: 04/29/18 13:29 04/29/18 13:29 ABG, PT/INR, D-dimer: ABG POC ABG pH 7.471 (7.35-7.45) H 04/25/18 13:06 POC ABG pCO2 43.5 (35-45) 04/25/18 13:06 POC ABG pO2 115 (80-105) H 04/25/18 13:06 POC ABG HCO3 31.7 04/25/18 13:06 POC ABG Total CO2 33 04/25/18 13:06 POC ABG O2 Sat 99 04/25/18 13:06 PT/INR, D-dimer PT 13.8 Sec. (12.2-14.9) 04/29/18 21:03 INR 1.00 (0.87-1.13) 04/29/18 21:03 Abnormal lab findings: Abnormal Labs 04/09/18 04/09/18 04/09/18 23:16 23:16 23:16 WBC 13.6 H Hct MCHC RDW Plt Count Lymph % (Auto) 9.4 L [place] % (Auto) Lymph # [place] # Seg Neutrophils % 87.3 H Seg Neutrophils # 11.9 H POC ABG pH POC ABG pCO2 POC ABG pO2 Sodium 132 L Potassium Chloride 92.7 L Carbon Dioxide BUN Glucose 143 H POC Glucose Hemoglobin A1c Lactic Acid 2.10 H* Calcium Phosphorus Magnesium Total Bilirubin 2.20 H Direct Bilirubin AST 107 H Total Creatine Kinase CK-MB (CK-2) C-Reactive Protein Total Protein Albumin TSH Free T4 04/10/18 04/10/18 04/10/18 00:38 00:55 01:13 WBC Hct MCHC RDW Plt Count Lymph % (Auto) [place] % (Auto) Lymph # [place] # Seg Neutrophils % Seg Neutrophils # POC ABG pH POC ABG pCO2 POC ABG pO2 Sodium Potassium Chloride Carbon Dioxide BUN Glucose POC Glucose 117 H 121 H Hemoglobin A1c Lactic Acid 2.10 H* Calcium Phosphorus Magnesium Total Bilirubin Direct Bilirubin AST Total Creatine Kinase CK-MB (CK-2) C-Reactive Protein Total Protein Albumin TSH Free T4 04/10/18 04/10/18 04/10/18 02:10 03:51 04:07 WBC 14.0 H Hct MCHC RDW Plt Count Lymph % (Auto) 7.5 L [place] % (Auto) Lymph # 1.1 L [place] # 1.0 H Seg Neutrophils % 84.9 H Seg Neutrophils # 11.8 H POC ABG pH POC ABG pCO2 POC ABG pO2 Sodium Potassium Chloride Carbon Dioxide BUN Glucose POC Glucose 153 H 158 H Hemoglobin A1c Lactic Acid Calcium Phosphorus Magnesium Total Bilirubin Direct Bilirubin AST Total Creatine Kinase CK-MB (CK-2) C-Reactive Protein Total Protein Albumin TSH Free T4 04/10/18 04/10/18 04/10/18 04:07 06:56 09:48 WBC Hct MCHC RDW Plt Count Lymph % (Auto) [place] % (Auto) Lymph # [place] # Seg Neutrophils % Seg Neutrophils # POC ABG pH POC ABG pCO2 POC ABG pO2 Sodium 130 L Potassium Chloride 93.4 L Carbon Dioxide BUN Glucose 180 H POC Glucose 251 H 245 H Hemoglobin A1c Lactic Acid Calcium 7.9 L D Phosphorus Magnesium Total Bilirubin Direct Bilirubin AST Total Creatine Kinase 7857 H CK-MB (CK-2) 34.3 H C-Reactive Protein Total Protein Albumin TSH Free T4 04/10/18 04/10/18 04/10/18 10:37 12:44 17:31 WBC Hct MCHC RDW Plt Count Lymph % (Auto) [place] % (Auto) Lymph # [place] # Seg Neutrophils % Seg Neutrophils # POC ABG pH POC ABG pCO2 45.6 H POC ABG pO2 374 H Sodium Potassium Chloride Carbon Dioxide BUN Glucose POC Glucose 348 H Hemoglobin A1c Lactic Acid Calcium Phosphorus Magnesium Total Bilirubin Direct Bilirubin AST Total Creatine Kinase 9880 H CK-MB (CK-2) 30.0 H C-Reactive Protein Total Protein Albumin TSH Free T4 04/10/18 04/11/18 04/11/18 23:36 03:52 04:28 WBC 12.2 H Hct MCHC RDW Plt Count 132 L Lymph % (Auto) [place] % (Auto) 10.2 H Lymph # [place] # 1.2 H Seg Neutrophils % 75.1 H Seg Neutrophils # 9.1 H POC ABG pH 7.495 H POC ABG pCO2 32.4 L POC ABG pO2 Sodium Potassium Chloride Carbon Dioxide BUN Glucose POC Glucose 148 H Hemoglobin A1c Lactic Acid Calcium Phosphorus Magnesium Total Bilirubin Direct Bilirubin AST Total Creatine Kinase CK-MB (CK-2) C-Reactive Protein Total Protein Albumin TSH Free T4 04/11/18 04/11/18 04/11/18 04:28 04:28 05:22 WBC Hct MCHC RDW Plt Count Lymph % (Auto) [place] % (Auto) Lymph # [place] # Seg Neutrophils % Seg Neutrophils # POC ABG pH POC ABG pCO2 POC ABG pO2 Sodium 133 L Potassium 3.5 L Chloride 95.1 L Carbon Dioxide BUN 7 L Glucose 206 H POC Glucose 178 H Hemoglobin A1c 6.4 H Lactic Acid Calcium 7.7 L Phosphorus 1.80 L Magnesium 1.50 L Total Bilirubin 4.10 H Direct Bilirubin AST 168 H Total Creatine Kinase 9352 H CK-MB (CK-2) C-Reactive Protein Total Protein Albumin 3.4 L TSH Free T4 04/11/18 04/11/18 04/11/18 11:28 13:43 17:30 WBC Hct MCHC RDW Plt Count Lymph % (Auto) [place] % (Auto) Lymph # [place] # Seg Neutrophils % Seg Neutrophils # POC ABG pH POC ABG pCO2 POC ABG pO2 Sodium Potassium Chloride Carbon Dioxide BUN Glucose POC Glucose 196 H 142 H Hemoglobin A1c Lactic Acid Calcium Phosphorus Magnesium Total Bilirubin Direct Bilirubin AST Total Creatine Kinase CK-MB (CK-2) C-Reactive Protein 7.20 H Total Protein Albumin TSH Free T4 04/11/18 04/11/18 04/12/18 18:59 23:23 04:00 WBC Hct MCHC RDW Plt Count Lymph % (Auto) [place] % (Auto) Lymph # [place] # Seg Neutrophils % Seg Neutrophils # POC ABG pH 7.489 H POC ABG pCO2 34.5 L POC ABG pO2 Sodium Potassium 3.3 L Chloride Carbon Dioxide BUN 6 L Glucose 151 H POC Glucose 129 H Hemoglobin A1c Lactic Acid Calcium 7.3 L Phosphorus 2.00 L Magnesium Total Bilirubin 2.80 H Direct Bilirubin AST 121 H Total Creatine Kinase 5177 H CK-MB (CK-2) C-Reactive Protein Total Protein 5.9 L Albumin 3.1 L TSH Free T4 04/12/18 04/12/18 04/12/18 04:00 04:04 05:21 WBC Hct 34.9 L MCHC 35 H RDW Plt Count 128 L Lymph % (Auto) [place] % (Auto) 10.6 H Lymph # [place] # 0.9 H Seg Neutrophils % Seg Neutrophils # POC ABG pH 7.454 H POC ABG pCO2 POC ABG pO2 Sodium Potassium Chloride Carbon Dioxide BUN Glucose POC Glucose 136 H Hemoglobin A1c Lactic Acid Calcium Phosphorus Magnesium Total Bilirubin Direct Bilirubin AST Total Creatine Kinase CK-MB (CK-2) C-Reactive Protein Total Protein Albumin TSH Free T4 04/12/18 04/13/18 04/13/18 11:23 00:21 04:57 WBC Hct MCHC RDW Plt Count Lymph % (Auto) [place] % (Auto) Lymph # [place] # Seg Neutrophils % Seg Neutrophils # POC ABG pH POC ABG pCO2 34.7 L POC ABG pO2 125 H Sodium Potassium Chloride Carbon Dioxide BUN Glucose POC Glucose 166 H 143 H Hemoglobin A1c Lactic Acid Calcium Phosphorus Magnesium Total Bilirubin Direct Bilirubin AST Total Creatine Kinase CK-MB (CK-2) C-Reactive Protein Total Protein Albumin TSH Free T4 04/13/18 04/13/18 04/13/18 05:02 05:02 12:16 WBC Hct MCHC RDW Plt Count Lymph % (Auto) [place] % (Auto) Lymph # [place] # Seg Neutrophils % Seg Neutrophils # POC ABG pH POC ABG pCO2 POC ABG pO2 Sodium Potassium Chloride Carbon Dioxide BUN Glucose POC Glucose 161 H 170 H Hemoglobin A1c Lactic Acid Calcium Phosphorus Magnesium Total Bilirubin Direct Bilirubin AST Total Creatine Kinase 3456 H CK-MB (CK-2) C-Reactive Protein Total Protein Albumin TSH Free T4 04/13/18 04/13/18 04/14/18 18:52 23:09 04:35 WBC Hct MCHC RDW Plt Count Lymph % (Auto) [place] % (Auto) Lymph # [place] # Seg Neutrophils % Seg Neutrophils # POC ABG pH 7.467 H POC ABG pCO2 POC ABG pO2 Sodium Potassium Chloride Carbon Dioxide BUN Glucose POC Glucose 196 H 219 H Hemoglobin A1c Lactic Acid Calcium Phosphorus Magnesium Total Bilirubin Direct Bilirubin AST Total Creatine Kinase CK-MB (CK-2) C-Reactive Protein Total Protein Albumin TSH Free T4 04/14/18 04/14/18 04/14/18 05:00 05:26 11:20 WBC Hct MCHC RDW Plt Count Lymph % (Auto) [place] % (Auto) Lymph # [place] # Seg Neutrophils % Seg Neutrophils # POC ABG pH POC ABG pCO2 POC ABG pO2 Sodium Potassium Chloride Carbon Dioxide BUN Glucose POC Glucose 249 H 260 H Hemoglobin A1c Lactic Acid Calcium Phosphorus Magnesium Total Bilirubin Direct Bilirubin AST Total Creatine Kinase 2247 H CK-MB (CK-2) C-Reactive Protein Total Protein Albumin TSH Free T4 04/14/18 04/14/18 04/14/18 17:04 17:51 23:53 WBC Hct MCHC RDW Plt Count Lymph % (Auto) [place] % (Auto) Lymph # [place] # Seg Neutrophils % Seg Neutrophils # POC ABG pH POC ABG pCO2 POC ABG pO2 79 L Sodium Potassium Chloride Carbon Dioxide BUN Glucose POC Glucose 284 H 203 H Hemoglobin A1c Lactic Acid Calcium Phosphorus Magnesium Total Bilirubin Direct Bilirubin AST Total Creatine Kinase CK-MB (CK-2) C-Reactive Protein Total Protein Albumin TSH Free T4 04/15/18 04/15/18 04/15/18 04:24 05:26 12:56 WBC Hct MCHC RDW Plt Count Lymph % (Auto) [place] % (Auto) Lymph # [place] # Seg Neutrophils % Seg Neutrophils # POC ABG pH POC ABG pCO2 45.4 H POC ABG pO2 78 L Sodium Potassium Chloride Carbon Dioxide BUN Glucose POC Glucose 194 H 200 H Hemoglobin A1c Lactic Acid Calcium Phosphorus Magnesium Total Bilirubin Direct Bilirubin AST Total Creatine Kinase CK-MB (CK-2) C-Reactive Protein Total Protein Albumin TSH Free T4 04/15/18 04/15/18 04/16/18 17:46 23:57 05:08 WBC Hct MCHC RDW Plt Count Lymph % (Auto) [place] % (Auto) Lymph # [place] # Seg Neutrophils % Seg Neutrophils # POC ABG pH POC ABG pCO2 POC ABG pO2 Sodium Potassium Chloride Carbon Dioxide BUN Glucose POC Glucose 118 H 204 H 221 H Hemoglobin A1c Lactic Acid Calcium Phosphorus Magnesium Total Bilirubin Direct Bilirubin AST Total Creatine Kinase CK-MB (CK-2) C-Reactive Protein Total Protein Albumin TSH Free T4 04/16/18 04/16/18 04/16/18 05:16 12:23 13:07 WBC Hct MCHC RDW Plt Count Lymph % (Auto) [place] % (Auto) Lymph # [place] # Seg Neutrophils % Seg Neutrophils # POC ABG pH 7.456 H POC ABG pCO2 46.7 H POC ABG pO2 Sodium Potassium Chloride Carbon Dioxide BUN Glucose POC Glucose 271 H Hemoglobin A1c Lactic Acid Calcium Phosphorus Magnesium Total Bilirubin Direct Bilirubin AST Total Creatine Kinase CK-MB (CK-2) C-Reactive Protein Total Protein Albumin TSH Free T4 04/16/18 04/17/18 04/17/18 19:14 00:08 05:46 WBC Hct MCHC RDW Plt Count Lymph % (Auto) [place] % (Auto) Lymph # [place] # Seg Neutrophils % Seg Neutrophils # POC ABG pH POC ABG pCO2 POC ABG pO2 Sodium Potassium Chloride Carbon Dioxide BUN Glucose POC Glucose 221 H 238 H 274 H Hemoglobin A1c Lactic Acid Calcium Phosphorus Magnesium Total Bilirubin Direct Bilirubin AST Total Creatine Kinase CK-MB (CK-2) C-Reactive Protein Total Protein Albumin TSH Free T4 04/17/18 04/17/18 04/17/18 13:50 13:59 14:20 WBC Hct MCHC RDW Plt Count Lymph % (Auto) [place] % (Auto) Lymph # [place] # Seg Neutrophils % Seg Neutrophils # POC ABG pH 7.474 H POC ABG pCO2 POC ABG pO2 Sodium Potassium 3.4 L Chloride 93.6 L Carbon Dioxide 33 H BUN Glucose 305 H POC Glucose 315 H Hemoglobin A1c Lactic Acid Calcium Phosphorus Magnesium Total Bilirubin Direct Bilirubin AST Total Creatine Kinase CK-MB (CK-2) C-Reactive Protein Total Protein Albumin TSH Free T4 04/17/18 04/17/18 04/18/18 17:04 23:26 04:20 WBC Hct MCHC RDW Plt Count Lymph % (Auto) [place] % (Auto) Lymph # [place] # Seg Neutrophils % Seg Neutrophils # POC ABG pH 7.473 H POC ABG pCO2 POC ABG pO2 Sodium Potassium Chloride Carbon Dioxide BUN Glucose POC Glucose 280 H 284 H Hemoglobin A1c Lactic Acid Calcium Phosphorus Magnesium Total Bilirubin Direct Bilirubin AST Total Creatine Kinase CK-MB (CK-2) C-Reactive Protein Total Protein Albumin TSH Free T4 04/18/18 04/18/18 04/18/18 05:14 08:32 11:00 WBC Hct MCHC RDW Plt Count Lymph % (Auto) [place] % (Auto) Lymph # [place] # Seg Neutrophils % Seg Neutrophils # POC ABG pH POC ABG pCO2 POC ABG pO2 Sodium Potassium Chloride Carbon Dioxide BUN Glucose POC Glucose 286 H 296 H Hemoglobin A1c Lactic Acid Calcium Phosphorus Magnesium Total Bilirubin Direct Bilirubin 0.3 H AST 87 H Total Creatine Kinase CK-MB (CK-2) C-Reactive Protein Total Protein Albumin 3.7 L TSH Free T4 04/18/18 04/18/18 04/19/18 12:03 18:15 00:08 WBC Hct MCHC RDW Plt Count Lymph % (Auto) [place] % (Auto) Lymph # [place] # Seg Neutrophils % Seg Neutrophils # POC ABG pH POC ABG pCO2 POC ABG pO2 Sodium Potassium Chloride Carbon Dioxide BUN Glucose POC Glucose 353 H 327 H 331 H Hemoglobin A1c Lactic Acid Calcium Phosphorus Magnesium Total Bilirubin Direct Bilirubin AST Total Creatine Kinase CK-MB (CK-2) C-Reactive Protein Total Protein Albumin TSH Free T4 04/19/18 04/19/18 04/19/18 04:46 05:26 11:48 WBC Hct MCHC RDW Plt Count Lymph % (Auto) [place] % (Auto) Lymph # [place] # Seg Neutrophils % Seg Neutrophils # POC ABG pH 7.497 H POC ABG pCO2 POC ABG pO2 119 H Sodium Potassium Chloride Carbon Dioxide BUN Glucose POC Glucose 323 H 266 H Hemoglobin A1c Lactic Acid Calcium Phosphorus Magnesium Total Bilirubin Direct Bilirubin AST Total Creatine Kinase CK-MB (CK-2) C-Reactive Protein Total Protein Albumin TSH Free T4 04/19/18 04/19/18 04/20/18 17:52 23:37 00:07 WBC Hct MCHC RDW Plt Count Lymph % (Auto) [place] % (Auto) Lymph # [place] # Seg Neutrophils % Seg Neutrophils # POC ABG pH POC ABG pCO2 POC ABG pO2 Sodium Potassium Chloride Carbon Dioxide BUN Glucose POC Glucose 284 H 285 H 312 H Hemoglobin A1c Lactic Acid Calcium Phosphorus Magnesium Total Bilirubin Direct Bilirubin AST Total Creatine Kinase CK-MB (CK-2) C-Reactive Protein Total Protein Albumin TSH Free T4 04/20/18 04/20/18 04/20/18 04:09 04:09 04:37 WBC Hct 34.7 L MCHC 35 H RDW Plt Count Lymph % (Auto) [place] % (Auto) Lymph # [place] # Seg Neutrophils % Seg Neutrophils # POC ABG pH POC ABG pCO2 POC ABG pO2 Sodium Potassium 3.5 L Chloride 95.7 L Carbon Dioxide 34 H BUN Glucose 286 H POC Glucose 267 H Hemoglobin A1c Lactic Acid Calcium Phosphorus Magnesium Total Bilirubin Direct Bilirubin AST Total Creatine Kinase CK-MB (CK-2) C-Reactive Protein Total Protein Albumin TSH Free T4 04/20/18 04/20/18 04/20/18 12:32 17:54 21:07 WBC Hct MCHC RDW Plt Count Lymph % (Auto) [place] % (Auto) Lymph # [place] # Seg Neutrophils % Seg Neutrophils # POC ABG pH POC ABG pCO2 POC ABG pO2 Sodium Potassium Chloride Carbon Dioxide BUN Glucose POC Glucose 220 H 298 H 187 H Hemoglobin A1c Lactic Acid Calcium Phosphorus Magnesium Total Bilirubin Direct Bilirubin AST Total Creatine Kinase CK-MB (CK-2) C-Reactive Protein Total Protein Albumin TSH Free T4 04/21/18 04/21/18 04/21/18 00:04 05:00 05:41 WBC Hct MCHC RDW Plt Count Lymph % (Auto) [place] % (Auto) Lymph # [place] # Seg Neutrophils % Seg Neutrophils # POC ABG pH POC ABG pCO2 POC ABG pO2 Sodium Potassium Chloride 95.2 L Carbon Dioxide 34 H BUN Glucose 179 H POC Glucose 183 H 166 H Hemoglobin A1c Lactic Acid Calcium Phosphorus Magnesium Total Bilirubin Direct Bilirubin AST Total Creatine Kinase CK-MB (CK-2) C-Reactive Protein Total Protein Albumin TSH Free T4 04/21/18 04/21/18 04/21/18 11:55 18:09 23:36 WBC Hct MCHC RDW Plt Count Lymph % (Auto) [place] % (Auto) Lymph # [place] # Seg Neutrophils % Seg Neutrophils # POC ABG pH POC ABG pCO2 POC ABG pO2 Sodium Potassium Chloride Carbon Dioxide BUN Glucose POC Glucose 219 H 247 H 229 H Hemoglobin A1c Lactic Acid Calcium Phosphorus Magnesium Total Bilirubin Direct Bilirubin AST Total Creatine Kinase CK-MB (CK-2) C-Reactive Protein Total Protein Albumin TSH Free T4 04/22/18 04/22/18 04/22/18 04:07 04:07 05:08 WBC Hct MCHC 35 H RDW 15.3 H Plt Count Lymph % (Auto) [place] % (Auto) Lymph # [place] # Seg Neutrophils % Seg Neutrophils # POC ABG pH POC ABG pCO2 POC ABG pO2 Sodium Potassium Chloride 97.4 L Carbon Dioxide 31 H BUN Glucose 177 H POC Glucose 200 H Hemoglobin A1c Lactic Acid Calcium Phosphorus Magnesium Total Bilirubin Direct Bilirubin AST Total Creatine Kinase CK-MB (CK-2) C-Reactive Protein Total Protein Albumin TSH Free T4 04/22/18 04/22/18 04/23/18 12:15 18:04 04:55 WBC Hct MCHC RDW Plt Count Lymph % (Auto) [place] % (Auto) Lymph # [place] # Seg Neutrophils % Seg Neutrophils # POC ABG pH POC ABG pCO2 POC ABG pO2 Sodium Potassium Chloride Carbon Dioxide BUN 23 H Glucose 274 H POC Glucose 189 H 191 H Hemoglobin A1c Lactic Acid Calcium Phosphorus Magnesium Total Bilirubin Direct Bilirubin AST Total Creatine Kinase CK-MB (CK-2) C-Reactive Protein Total Protein Albumin TSH Free T4 04/23/18 04/23/1804/23/19 05:21 11:06 17:46 WBC Hct MCHC RDW Plt Count Lymph % (Auto) [place] % (Auto) Lymph # [place] # Seg Neutrophils % Seg Neutrophils # POC ABG pH POC ABG pCO2 POC ABG pO2 Sodium Potassium Chloride Carbon Dioxide BUN Glucose POC Glucose 143 H 176 H 142 H Hemoglobin A1c Lactic Acid Calcium Phosphorus Magnesium Total Bilirubin Direct Bilirubin AST Total Creatine Kinase CK-MB (CK-2) C-Reactive Protein Total Protein Albumin TSH Free T4 04/23/18 04/24/18 04/24/18 23:35 06:02 11:37 WBC Hct MCHC RDW Plt Count Lymph % (Auto) [place] % (Auto) Lymph # [place] # Seg Neutrophils % Seg Neutrophils # POC ABG pH POC ABG pCO2 POC ABG pO2 Sodium Potassium Chloride Carbon Dioxide BUN Glucose POC Glucose 127 H 175 H 188 H Hemoglobin A1c Lactic Acid Calcium Phosphorus Magnesium Total Bilirubin Direct Bilirubin AST Total Creatine Kinase CK-MB (CK-2) C-Reactive Protein Total Protein Albumin TSH Free T4 04/24/18 04/24/18 04/24/18 16:50 18:40 20:23 WBC Hct MCHC RDW Plt Count Lymph % (Auto) [place] % (Auto) Lymph # [place] # Seg Neutrophils % Seg Neutrophils # POC ABG pH POC ABG pCO2 POC ABG pO2 Sodium Potassium Chloride Carbon Dioxide BUN Glucose POC Glucose 134 H 148 H Hemoglobin A1c Lactic Acid Calcium Phosphorus Magnesium Total Bilirubin Direct Bilirubin AST Total Creatine Kinase CK-MB (CK-2) C-Reactive Protein Total Protein Albumin TSH 47.760 H Free T4 0.10 L 04/24/18 04/25/18 04/25/18 23:14 05:22 05:22 WBC Hct MCHC 35 H RDW 15.4 H Plt Count Lymph % (Auto) [place] % (Auto) Lymph # [place] # Seg Neutrophils % Seg Neutrophils # POC ABG pH POC ABG pCO2 POC ABG pO2 Sodium 136 L Potassium Chloride 95.0 L Carbon Dioxide BUN Glucose 210 H POC Glucose 145 H Hemoglobin A1c Lactic Acid Calcium Phosphorus Magnesium Total Bilirubin Direct Bilirubin AST Total Creatine Kinase CK-MB (CK-2) C-Reactive Protein Total Protein Albumin TSH Free T4 04/25/18 04/25/18 04/25/18 05:44 12:19 13:06 WBC Hct MCHC RDW Plt Count Lymph % (Auto) [place] % (Auto) Lymph # [place] # Seg Neutrophils % Seg Neutrophils # POC ABG pH 7.471 H POC ABG pCO2 POC ABG pO2 115 H Sodium Potassium Chloride Carbon Dioxide BUN Glucose POC Glucose 176 H 231 H Hemoglobin A1c Lactic Acid Calcium Phosphorus Magnesium Total Bilirubin Direct Bilirubin AST Total Creatine Kinase CK-MB (CK-2) C-Reactive Protein Total Protein Albumin TSH Free T4 04/25/18 04/25/18 04/26/18 17:54 20:09 00:01 WBC Hct MCHC RDW Plt Count Lymph % (Auto) [place] % (Auto) Lymph # [place] # Seg Neutrophils % Seg Neutrophils # POC ABG pH POC ABG pCO2 POC ABG pO2 Sodium Potassium Chloride Carbon Dioxide BUN Glucose POC Glucose 196 H 119 H 174 H Hemoglobin A1c Lactic Acid Calcium Phosphorus Magnesium Total Bilirubin Direct Bilirubin AST Total Creatine Kinase CK-MB (CK-2) C-Reactive Protein Total Protein Albumin TSH Free T4 04/26/18 04/26/18 04/26/18 05:10 12:03 15:20 WBC Hct MCHC RDW Plt Count Lymph % (Auto) [place] % (Auto) Lymph # [place] # Seg Neutrophils % Seg Neutrophils # POC ABG pH POC ABG pCO2 POC ABG pO2 Sodium Potassium Chloride Carbon Dioxide BUN Glucose POC Glucose 212 H 222 H 113 H Hemoglobin A1c Lactic Acid Calcium Phosphorus Magnesium Total Bilirubin Direct Bilirubin AST Total Creatine Kinase CK-MB (CK-2) C-Reactive Protein Total Protein Albumin TSH Free T4 04/26/18 04/26/18 04/27/18 18:08 23:39 05:10 WBC Hct MCHC RDW Plt Count Lymph % (Auto) [place] % (Auto) Lymph # [place] # Seg Neutrophils % Seg Neutrophils # POC ABG pH POC ABG pCO2 POC ABG pO2 Sodium Potassium Chloride Carbon Dioxide BUN Glucose POC Glucose 110 H 165 H 137 H Hemoglobin A1c Lactic Acid Calcium Phosphorus Magnesium Total Bilirubin Direct Bilirubin AST Total Creatine Kinase CK-MB (CK-2) C-Reactive Protein Total Protein Albumin TSH Free T4 04/27/18 04/27/18 04/27/18 10:04 11:23 17:36 WBC Hct MCHC RDW Plt Count Lymph % (Auto) [place] % (Auto) Lymph # [place] # Seg Neutrophils % Seg Neutrophils # POC ABG pH POC ABG pCO2 POC ABG pO2 Sodium Potassium Chloride Carbon Dioxide BUN Glucose POC Glucose 190 H 258 H 198 H Hemoglobin A1c Lactic Acid Calcium Phosphorus Magnesium Total Bilirubin Direct Bilirubin AST Total Creatine Kinase CK-MB (CK-2) C-Reactive Protein Total Protein Albumin TSH Free T4 04/27/18 04/28/18 04/28/18 23:23 05:19 13:06 WBC Hct MCHC RDW Plt Count Lymph % (Auto) [place] % (Auto) Lymph # [place] # Seg Neutrophils % Seg Neutrophils # POC ABG pH POC ABG pCO2 POC ABG pO2 Sodium Potassium Chloride Carbon Dioxide BUN Glucose POC Glucose 131 H 178 H 194 H Hemoglobin A1c Lactic Acid Calcium Phosphorus Magnesium Total Bilirubin Direct Bilirubin AST Total Creatine Kinase CK-MB (CK-2) C-Reactive Protein Total Protein Albumin TSH Free T4 04/28/18 04/29/18 04/29/18 16:59 00:24 13:29 WBC Hct 34.8 L MCHC RDW Plt Count Lymph % (Auto) [place] % (Auto) 9.8 H Lymph # [place] # Seg Neutrophils % Seg Neutrophils # POC ABG pH POC ABG pCO2 POC ABG pO2 Sodium Potassium Chloride Carbon Dioxide BUN Glucose POC Glucose 155 H 166 H Hemoglobin A1c Lactic Acid Calcium Phosphorus Magnesium Total Bilirubin Direct Bilirubin AST Total Creatine Kinase CK-MB (CK-2) C-Reactive Protein Total Protein Albumin TSH Free T4 04/29/18 13:29 WBC Hct MCHC RDW Plt Count Lymph % (Auto) [place] % (Auto) Lymph # [place] # Seg Neutrophils % Seg Neutrophils # POC ABG pH POC ABG pCO2 POC ABG pO2 Sodium 135 L Potassium Chloride Carbon Dioxide BUN Glucose 214 H POC Glucose Hemoglobin A1c Lactic Acid Calcium Phosphorus Magnesium Total Bilirubin Direct Bilirubin AST Total Creatine Kinase CK-MB (CK-2) C-Reactive Protein Total Protein Albumin TSH Free T4 Allied health notes reviewed: nursing
--- NOTE | 2018-04-30 13:26 | Anesthesia Consultation ---
Anesthesia Consult and Med Hx Date of service: 04/30/18 - Airway Anesthetic Teeth Evaluation: Edentulous ROM Head & Neck: Adequate Mental/Hyoid Distance: Adequate - Pulmonary Exam CTA: Yes - Cardiac Exam Cardiac Exam: RRR - Pre-Operative Health Status ASA Pre-Surgery Classification: ASA4 Proposed Anesthetic Plan: MAC - Pre-Anesthesia Comment Pre-Anesthesia Comments: Patient found down at home hypoglycemic. HTN, CAD, encephalopathy, seizures, hypothyroid, DM. Non purposeful movements. Poor prognosis - Pulmonary Hx Respiratory Symptoms: Yes (Resp Failure, Ventilator ) Hx Pneumonia: Yes (Aspiration ) - Cardiovascular System Hx Hypertension: Yes Hx Coronary Artery Disease: Yes - Central Nervous System Hx Seizures: Yes - Endocrine Hx Renal Disease: Yes (Rhambo, resolved) Hx Non-Insulin Dependent Diabetes: Yes Hx Thyroid Disease: Yes Hx Hypothyroidism: Yes
[2018-04-30] MEDS ORDERED: DIPRIVAN 10 MG/ML IV ONE ×2 (13:31)
[2018-04-30] MEDS ORDERED: ZEMURON IV ONE (13:31)
[2018-04-30] MEDS ORDERED: SUBLIMAZE ONE (13:31)
[2018-04-30] MEDS ORDERED: VERSED ONE (13:31)
[2018-04-30] MEDS ORDERED: XYLOCAINE MPF 2% ONE (13:32)
--- NOTE | 2018-04-30 14:24 | Procedure Note ---
Date of procedure: 04/30/18 Pre-op diagnosis: VDRF Post-op diagnosis: same Procedure: fiberoptic bronchoscopy Findings: Time out performed. Pt placed in supine position with shoulder roll and neck slightly extended. Adapter attached to ETT. Flexible bronchoscope advanced through ETT into trachea. Trachea clear and yanely easily visualized. Mild inflammation seen. The ETT was pulled back from from 25 cm to 16 cm slowly and under direct visualization. Dr. Cooley performed tracheostomy under direct visualization. The needle was seen entering the trachea and wire threaded under direct visualization. Tracheostomy was placed (see separate procedure note). O nce the tracheostomy was placed, the balloon was seen inside the trachea. Bronchoscope was withdrawn from the ETT and placed through the tracheostomy. The tracheostomy was 3 cm from the yanely. There was no bleeding and the airway remained clear. The bronchoscope was withdrawn. Tracheostomy hooked to ventilator and inspiratory and expiratory volumes were satisfactory. The ETT was removed. The patient tolerated this portion of the procedure well. Anesthesia: ROSHNIA Surgeon: CHRISTINA ALBA Estimated blood loss: minimal Pathology: none Condition: stable Disposition: no change
--- NOTE | 2018-04-30 14:26 | Procedure Note ---
Date of procedure: 04/30/18 Pre-op diagnosis: VDRF Post-op diagnosis: same Procedure: PEG tube placement Findings: Time out was performed at the start of the procedure. The bite block was placed. Endoscope was passed through the mouth and into the esophagus, with dobhoff tube serving as a guide. The endoscope was advanced through the esophagus and into the stomach. The scope was advanced through the mid and distal body of the stomach and transillumination performed. There was good transillumination and a satisfactory position was chosen for the PEG tube in the mid/distal body of the stomach. The skin was anesthetized with local anesthetic and an incision made. A needle/catheter complex was inserted under direct visualization through this incision and into the stomach. The needle was withdrawn and wire threaded through catheter. The wire was grasped with a snare though the endoscope and the endoscope withdrawn through the mouth. The PEG tube was attached to the wire and pulled until it was brought out through the abdominal incision. The endoscope was passed through the mouth, the esophagus, and into the stomach. The PEG bumper was seen in satisfactory position against the gastric mucosa without tension. It was at 3.5 cm at the skin. The scope was then advanced through the pylorus and into the duodenum. The duodenum and pylorus were unremarkable. The body of the stomach showed evidence of mild gastritis but no bleeding. There was a small polyp in the gastric body. The scope was was retroflexed and the fundus was unremarkable. The stomach was then decompressed and the scope pulled back into the esophagus and slowly into the mouth. The esophagus was unremarkable. The scope was removed. The PEG tube was assembled in the usual fashion and clamped. The patient tolerated the procedure well. Anesthesia: MARGY local Surgeon: CHRISTINA ALBA Servomechanism Assembler: GAMAL CHICAS (cosurgeon) Estimated blood loss: minimal Pathology: none Condition: stable Disposition: no change
--- NOTE | 2018-04-30 14:29 | Procedure Note ---
Date of procedure: 04/30/18 Pre-op diagnosis: Altered Mental Status Post-op diagnosis: same Procedure: Perc Trach Consent was on the chart. Time out was performed. Sterile prep and drape was done. Anesthesia was managed by anesthesia provider. Lidocaine was used to anesthetize an area about two finger breadths above the sternal notch. Transverse incision was made. Blunt dissection was carried down to trachea. Under bronchoscopic guidance, a finder needle was used to enter the trachea. Thereafter, the introducer needle was inserted. It was approximately at the first-second tracheal ring. The Cricoid was very low so we ended up going a little higher on the trach. There was no pulsation at this level. Tract was dilated and tracheostomy tube was easily inserted. Balloon was inflated. Position was rechecked via bronchoscopy through the tracheostomy tube. We were a t least 2 cm above the yanely. We had good inspiratory and expiratory volumes. CXR shows the tube to be in good position. There were no apparent complications at the end of the case. Findings: very low trachea. Normal internal anatomy. Implants: 8 Shiley Trach Anesthesia: MAC Surgeon: GAMAL CHICAS [employer] Examiner: CHRISTINA ALBA (Bronch) Estimated blood loss: minimal Pathology: none Condition: stable Disposition: ICU
--- NOTE | 2018-04-30 15:11 | XRay Report ---
AP CHEST: HISTORY: Tracheostomy placement The endotracheal tube has been replaced with a tracheostomy tube since 04/29/18. The tracheostomy appears in good position. The feeding tube has been removed. AP view of the chest demonstrates a normal mediastinal and cardiac contour with clear lungs and normal bony and soft tissue structures. IMPRESSION: Tracheostomy placement. Otherwise, unremarkable AP chest.
--- NOTE | 2018-04-30 15:18 | Anesthesia Day of Surgery ---
Anesthesia Day of Surgery - Day of Surgery Patient Examined: Yes Patient H&P Reviewed: Yes Patient is NPO: Yes
[2018-04-30] MEDS: APRESOLINE IV PRN (19:39)
[2018-04-30] MEDS: TYLENOL PO PRN (20:25)
[2018-04-30] MEDS: MIRALAX 3350 PO SCH (22:12)
[2018-05-01] MEDS: HumaLOG SUB-Q SCH ×5 (00:03→23:40)
[2018-05-01] MEDS: APRESOLINE PO SCH ×3 (05:58→21:16)
[2018-05-01] MEDS: SYNTHROID PO SCH (05:58)
--- NOTE | 2018-05-01 08:02 | Progress Note ---
Assessment and Plan - Patient Problems (1) Altered mental state Current Visit: Yes Status: Acute Qualifiers: Altered mental status type: unspecified Qualified Code(s): R41.82 - Altered mental status, unspecified Plan to address problem: Pt stable. s/p Trach/PEG - 04/30/18 - POD#1. Appears to be doing well. No signs of any complications. Have asked nurse to place drain sponge under PEG collar to prevent damage to skin. Will sign-off. Please call with questions. Subjective Date of service: 05/01/18 Patient Reports: Positive: other (report o/n of minor bleeding from trach site) Objective Vital Signs - 12hr 04/30/18 04/30/18 04/30/18 20:25 21:00 22:00 Temperature Pulse Rate 103 H 95 H Pulse Rate [ Apical] Respiratory 22 26 H 20 Rate Blood Pressure 146/69 136/71 O2 Sat by Pulse 100 99 Oximetry O2 Sat by Pulse Oximetry [ Assessment] 04/30/18 04/30/18 04/30/18 22:11 22:30 23:00 Temperature 100.8 F H Pulse Rate 98 H 97 H Pulse Rate [ Apical] Respiratory 24 Rate Blood Pressure 136/71 162/69 O2 Sat by Pulse 99 Oximetry O2 Sat by Pulse Oximetry [ Assessment] 04/30/18 04/30/18 04/30/18 23:15 23:30 23:31 Temperature Pulse Rate 97 H 95 H 94 H Pulse Rate [ Apical] Respiratory 14 25 H Rate Blood Pressure 162/69 155/74 155/74 O2 Sat by Pulse 100 99 98 Oximetry O2 Sat by Pulse Oximetry [ Assessment] 04/30/18 04/30/18 05/01/18 23:56 23:58 00:00 Temperature 99.9 F H Pulse Rate 88 92 H Pulse Rate [ 92 H Apical] Respiratory 19 Rate Blood Pressure 157/69 O2 Sat by Pulse 100 Oximetry O2 Sat by Pulse Oximetry [ Assessment] 05/01/18 05/01/18 05/01/18 00:02 00:30 00:31 Temperature Pulse Rate 94 H 90 Pulse Rate [ Apical] Respiratory 24 20 Rate Blood Pressure 155/74 159/73 O2 Sat by Pulse 100 100 Oximetry O2 Sat by Pulse 99 Oximetry [ Assessment] 05/01/18 05/01/18 05/01/18 01:00 01:30 02:00 Temperature Pulse Rate 82 82 88 Pulse Rate [ Apical] Respiratory 24 18 19 Rate Blood Pressure 157/69 127/66 127/66 O2 Sat by Pulse 99 98 96 Oximetry O2 Sat by Pulse Oximetry [ Assessment] 05/01/18 05/01/18 05/01/18 02:30 03:00 03:30 Temperature Pulse Rate 90 91 H 84 Pulse Rate [ Apical] Respiratory 19 24 22 Rate Blood Pressure 112/67 114/57 166/68 O2 Sat by Pulse 97 100 99 Oximetry O2 Sat by Pulse Oximetry [ Assessment] 05/01/18 05/01/18 05/01/18 04:00 04:30 05:00 Temperature 100.2 F H Pulse Rate 76 87 82 Pulse Rate [ 85 Apical] Respiratory 17 25 H 21 Rate Blood Pressure 143/58 143/58 143/58 O2 Sat by Pulse 98 100 99 Oximetry O2 Sat by Pulse Oximetry [ Assessment] 05/01/18 05/01/18 05/01/18 05:30 05:58 06:00 Temperature Pulse Rate 84 82 76 Pulse Rate [ Apical] Respiratory 24 20 Rate Blood Pressure 135/66 126/66 124/67 O2 Sat by Pulse 99 100 Oximetry O2 Sat by Pulse Oximetry [ Assessment] 05/01/18 05/01/18 05/01/18 06:30 07:00 07:30 Temperature Pulse Rate 77 73 80 Pulse Rate [ Apical] Respiratory 17 16 21 Rate Blood Pressure 124/67 124/67 135/61 O2 Sat by Pulse 100 99 100 Oximetry O2 Sat by Pulse Oximetry [ Assessment] - General physical appearance no distress, no pain, other (not following commands) - Neck other (trach in place. Dried blood under collar. No active bleeding or drainage. No excess tension on skin. ) - Respiratory normal respiratory effort, other (equal breath sounds) - Abdomen soft, bowel sounds hypoactive, other (PEG collar loosened. ) - Integumentary no rash, no growths, no abnormal pigmentation - Labs 04/29/18 13:29 04/29/18 13:29
[2018-05-01] MEDS: COLACE FEEDTUBE SCH ×2 (09:20→21:17)
[2018-05-01] MEDS: HumuLIN R SUB-Q SCH ×3 (09:20→20:40)
[2018-05-01] MEDS: KEPPRA PO SCH ×2 (09:21→21:16)
[2018-05-01] MEDS: NORVASC FEEDTUBE SCH (09:21)
[2018-05-01] MEDS: PEPCID PO SCH ×2 (09:22→21:16)
[2018-05-01] MEDS: LOVENOX SUB-Q SCH (09:22)
[2018-05-01] MEDS: LANTUS SUB-Q SCH (09:23)
[2018-05-01] MEDS: SODIUM CHLORIDE FLUSH SYRINGE 10 ML IV SCH ×2 (09:23→21:17)
[2018-05-01] MEDS: PROVIGIL PO SCH (09:26)
--- NOTE | 2018-05-01 10:08 | Progress Note ---
Assessment and Plan Assessment and plan: 78-year-old male patient with significant history of hypertension diabetes coronary artery disease was admitted through emergency room with history of unresponsiveness at home for unknown Duration of time. At that time he had hypoglycemia and seizure activity, Patient was unable to protect his airway and was intubated on ventilatory support admitted to ICU also with concern of Aspiration Pneumonia Hospital course -Neuro: Patient had CT scan 2 days does not show acute abnormality. 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 History this is most likely due to hypoglycemia, Now resolved Pulmonary: The patient has been maintained on mechanical ventilator, he's not been able to be weaned off the vent. The family wants to continue aggressive care. If the patient is not able, he will most likely need to be trached and peg FEN; his electrolytes namely potassium and phosphate were repleted ID; the patient received empiric antibiotics for pneumonia, Cultures including blood, urine and sputum has remained without growth. No new fever in the last 48hrs Musculoskeletal; Traumatic Rhabdomyolysis; status post IV fluids and improved, His medications were optimized for his chronic conditions Neuro: Unresponsive CXR: Concerning for Focal RLL infiltrate initially, repeat done 04/23/18 shows no acute pathology. Diagnosis Noted fever overnight, Recheck Lab, culture, and monitor. No indication of abx at this time. Acute respiratory failure with hypoxia -s/p intubation on MV Greater than 96hr -pulmonology following -S/P Trach and Peg 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 SWITCHED TO PO Acute Toxic metabolic encephalopathy Likely secondary to Hypoxic Ischemic Encephalopathy vs hypgolycemic encephalopathy -no significant change in ms -EEG abnormal, awaiting repeat -MRI brain neg -neurology following -Maintain sleep wake cycle - Discussed with Sons and sister extensively, Repeat EEG is pending. Will also obtain neurology re-evaluation. They understand the prognosis is poor. Hypokalemia -resolved s/p repletion, will monitor Severe sepsis 2/2 aspiration PNA -resolved -off antibiotics FOLLOWING TREATMENT WITH ROCEPHIN AND FLAGYL Aspiration Pneumonia -completed antibiotics - No new fever DM II with hyperglycemia - Was hypoglycemic on admission - BG improved - Cont current insulin regimen and adjust as needed Seizure, new onset -probably 2/2 hypoglycemia recorded by EMS staff prior to admission -stable on Keppra -cont seizure precautions Critical Illness Myopathy -cont supportive care Thrombocytopenia -level improved, will monitor Transaminitis -levels improved -Hepatitis panel neg -Abd US neg Rhabdomyolysis -improved Hypophosphatemia -resolved Hypomagenesemia -Replaced HTN -uncontrolled, meds adjusted Moderate protein calorie malnutrition -on tube feeding -technical support coordinator following Morbid obesity: Supportive care and counselling when awake DVT/GI prophylaxis with Lovenox and famotidine Poor Prognosis LTAC eval- Referral made. The high probability of a clinically significant, sudden or life threatening deterioration of the [Neurology, Pulmonary] system(s) required my full and direct attention, intervention and personal management. The aggregate critical care time was [35] minutes. This time is in addition to time spent performing reported procedures but includes the following: [x] Data Review and interpretation [x] Patient assessment and monitoring of vital signs [x] Documentation [x] Medication orders and management History Interval history: Patient seen and examined, Remains unresponsive although still spontaneously opens his eyes. No overnight issues reported. Patient remains off sedation and not responsive. Noted fever yesterday and low grade today. Hospitalist Physical - Physical exam Narrative exam: VITAL SIGNS: Reviewed. GENERAL: The patient appeared well nourished and normally developed. Continues on mechanical ventilation. Ventilatory support- unresponsive. Vital signs as documented. HEAD: No signs of head trauma. EYES: Pupils are equal. Sluggish response to light.. EARS: Unable to assess MOUTH: Trach NECK: No adenopathy, no JVD. CHEST: Chest with clear breath sounds bilaterally. No wheezes, rales, or rhonchi. CARDIAC: Bradycardia with regular rate. S1 and S2, without murmurs, gallops, or rubs. VASCULAR: No Edema. Peripheral pulses normal and equal in all extremities. ABDOMEN: Peg in placed. Soft, without detectable tenderness. No sign of distention. No rebound or guarding, and no masses palpated. Bowel Sounds normal. MUSCULOSKELETAL: Unable to assess. Extremities without clubbing, cyanosis or edema. NEUROLOGIC EXAM: Unresponsive, moves all ext. PSYCHIATRIC: Unable to assess SKIN: No rash or lesions. - Constitutional Vitals: Temp Pulse Resp BP Pulse Ox 99.9 F H 77 16 134/66 100 05/01/18 08:00 05/01/18 09:30 05/01/18 09:30 05/01/18 09:30 05/01/18 09:30 General appearance: Present: no acute distress, other (intubated on vent) Results - Labs CBC & Chem 7: 04/29/18 13:29 04/29/18 13:29 Labs: Laboratory Last Values WBC 7.6 K/mm3 (4.5-11.0) 04/29/18 13:29 RBC 3.86 M/mm3 (3.65-5.03) 04/29/18 13:29 Hgb 11.8 gm/dl (11.8-15.2) 04/29/18 13:29 Hct 34.8 % (35.5-45.6) L 04/29/18 13:29 MCV 90 fl (84-94) 04/29/18 13:29 MCH 31 pg (28-32) 04/29/18 13:29 MCHC 34 % (32-34) 04/29/18 13:29 RDW 15.1 % (13.2-15.2) 04/29/18 13:29 Plt Count 215 K/mm3 (140-440) 04/29/18 13:29 Lymph % (Auto) 25.6 % (13.4-35.0) 04/29/18 13:29 [place] % (Auto) 9.8 % (0.0-7.3) H 04/29/18 13:29 Eos % (Auto) 2.7 % (0.0-4.3) 04/29/18 13:29 Baso % (Auto) 0.4 % (0.0-1.8) 04/29/18 13:29 Lymph # 1.9 K/mm3 (1.2-5.4) 04/29/18 13:29 [place] # 0.7 K/mm3 (0.0-0.8) 04/29/18 13:29 Eos # 0.2 K/mm3 (0.0-0.4) 04/29/18 13:29 Baso # 0.0 K/mm3 (0.0-0.1) 04/29/18 13:29 Seg Neutrophils % 61.5 % (40.0-70.0) 04/29/18 13:29 Seg Neutrophils # 4.7 K/mm3 (1.8-7.7) 04/29/18 13:29 PT 13.8 Sec. (12.2-14.9) 04/29/18 21:03 INR 1.00 (0.87-1.13) 04/29/18 21:03 APTT 24.8 Sec. (24.2-36.6) 04/09/18 23:16 POC ABG pH 7.471 (7.35-7.45) H 04/25/18 13:06 POC ABG pCO2 43.5 (35-45) 04/25/18 13:06 POC ABG pO2 115 (80-105) H 04/25/18 13:06 POC ABG HCO3 31.7 04/25/18 13:06 POC ABG Total CO2 33 04/25/18 13:06 POC ABG O2 Sat 99 04/25/18 13:06 POC ABG Base Excess 8 04/25/18 13:06 FiO2 30 % 04/25/18 13:06 Sodium 135 mmol/L (137-145) L 04/29/18 13:29 Potassium 4.0 mmol/L (3.6-5.0) 04/29/18 13:29 Chloride 99.0 mmol/L (98-107) 04/29/18 13:29 Carbon Dioxide 29 mmol/L (22-30) 04/29/18 13:29 Anion Gap 11 mmol/L 04/29/18 13:29 BUN 14 mg/dL (9-20) 04/29/18 13:29 Creatinine 0.9 mg/dL (0.8-1.5) 04/29/18 13:29 Estimated GFR > 60 ml/min 04/29/18 13:29 BUN/Creatinine Ratio 16 % 04/29/18 13:29 Glucose 214 mg/dL (75-100) H 04/29/18 13:29 POC Glucose 166 (70-105) H 04/29/18 00:24 Hemoglobin A1c 6.4 % (4-6) H 04/11/18 04:28 Lactic Acid 1.70 mmol/L (0.7-2.0) 04/10/18 02:47 Calcium 8.8 mg/dL (8.4-10.2) 04/29/18 13:29 Phosphorus 3.60 mg/dL (2.5-4.5) 04/21/18 05:00 Magnesium 2.10 mg/dL (1.7-2.3) 04/21/18 05:00 Total Bilirubin 1.20 mg/dL (0.1-1.2) 04/18/18 11:00 Direct Bilirubin 0.3 mg/dL (0-0.2) H 04/18/18 11:00 Indirect Bilirubin 0.9 mg/dL 04/18/18 11:00 AST 87 units/L (5-40) H 04/18/18 11:00 ALT 39 units/L (7-56) 04/18/18 11:00 Alkaline Phosphatase 59 units/L (35-129) 04/18/18 11:00 Total Creatine Kinase 2247 units/L (55-170) H 04/14/18 05:00 CK-MB (CK-2) 30.0 ng/mL (0.0-4.0) H 04/10/18 10:37 CK-MB (CK-2) Rel Index 0.3 (0-4) 04/10/18 10:37 Troponin T < 0.010 ng/mL (0.00-0.029) 04/10/18 10:37 C-Reactive Protein 7.20 mg/dL (0.00-1.30) H 04/11/18 13:43 Total Protein 6.8 g/dL (6.3-8.2) 04/18/18 11:00 Albumin 3.7 g/dL (3.9-5) L 04/18/18 11:00 Albumin/Globulin Ratio 1.2 % 04/18/18 11:00 Vitamin B12 745.3 pg/mL (211-911) 04/24/18 16:50 TSH 47.760 mlU/mL (0.270-4.200) H 04/24/18 16:50 Free T4 0.10 ng/dL (0.76-1.46) L 04/24/18 16:50 Urine Color Yellow (Yellow) 04/10/18 01:07 Urine Turbidity Clear (Clear) 04/10/18 01:07 Urine pH 5.0 (5.0-7.0) 04/10/18 01:07 Ur Specific [place] 1.019 (1.003-1.030) 04/10/18 01:07 Urine Protein 100 mg/dl mg/dL (Negative) 04/10/18 01:07 Urine Glucose (UA) Neg mg/dL (Negative) 04/10/18 01:07 Urine Ketones Neg mg/dL (Negative) 04/10/18 01:07 Urine Blood Lg (Negative) 04/10/18 01:07 Urine Nitrite Neg (Negative) 04/10/18 01:07 Urine Bilirubin Neg (Negative) 04/10/18 01:07 Urine Urobilinogen < 2.0 mg/dL (<2.0) 04/10/18 01:07 Ur Leukocyte Esterase Neg (Negative) 04/10/18 01:07 Urine WBC (Auto) 1.0 /HPF (0.0-6.0) 04/10/18 01:07 Urine RBC (Auto) 9.0 /HPF (0.0-6.0) 04/10/18 01:07 U Epithel Cells (Auto) < 1.0 /HPF (0-13.0) 04/10/18 01:07 Urine Mucus Few /HPF 04/10/18 01:07 Levetiracetam 25.2 mcg/mL 04/12/18 20:37 Hepatitis A IgM Ab Non-reactive (NonReactive) 04/14/18 14:56 Hep Bs Antigen Non-reactive (Negative) 04/14/18 14:56 Hep B Core IgM Ab Non-reactive (NonReactive) 04/14/18 14:56 Hepatitis C Antibody Non-reactive (NonReactive) 04/14/18 14:56 Influenza A (Rapid) Negative (Negative) 04/11/18 15:08 Influenza B (Rapid) Negative (Negative) 04/11/18 15:08 Nutrition/Malnutrition Assess - Dietary Evaluation Nutrition/Malnutrition Findings: Nutrition Notes Start: 04/11/18 10:20 Freq: Status: Active Protocol: Document 04/25/18 15:33 KH (Rec: 04/25/18 15:37 [email or web address]) Co-Sign 04/25/18 15:33 LP Nutrition Notes Initial or Follow up Assessment Current Diagnosis Coronary Artery Disease, Diabetes,Hypertension, Respiratory Failure Other Pertinent Diagnosis Pneu, new onset seizures, acute encephalopathy Current Diet Vital AF 1.2 at 50ml/hr Labs/Tests B Pertinent Medications Reviewed Height 5 ft 9 in Weight 91.5 kg [place] Body Weight (kg) 72.72 BMI 29.7 Subjective/Other Information Pt f/u for stable TF. Observed Vital AF 1.2 infusing at 50 ml/hr. Per RN, pt. still tolerating well. Percent of energy/protein needs met: 98%/82% Burn Absent Trauma Absent #1 Nutrition Diagnosis Inadequate oral intake Diagnosis Progress(for reassessment Continues documentation) Is patient on ventilator? Yes Is Patient Ambulatory and/or Out of Bed No REE-([facility]-confined to bed) 1956.840 Kcal/Kg value to use for calculation 16 Approximate Energy Requirements Using 1464 kcal/Kg Calculation Used for Recommendations Kcal/kg Additional Notes Protein needs are 110-183g (1. 2-2g/kg) Fluid needs are 1ml/kcal Nutrition Intervention Change Diet Order: Vital AF 1.2 Nutrition Support: Vital 1.2 at 50 mL/hr. Water flush 80 mL q4h. Kcal 1,440 Protein (gm) 90 Carbohydrates (gm) 133 Fluid (mL) 973 Goal #1 Continue to meet at least 80% of kcal and protein needs Anticipated Discharge Needs: Unable to determine at this time Follow-Up By: 05/02/18 Additional Comments Follow for stable TF
--- NOTE | 2018-05-01 12:58 | Progress Note ---
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 daily - prn CXR's & ABG's at this point (post trach CXR reviewed and addressed; no acute process) - follow clinically of AB's and follow blood cultures - continue to wean supplemental oxygen to keep O2 sats > 90% - continue bronchodilators with pulmonary hygiene per RT - VAP bundle addressed - continue daily SAT's - titrate sedatives for RASS 0 to -1 (on hold re: AMS) - neurology evaluation ongoing - PICC line pulled - GI & VTE prophylaxis - azotemia resolved - continue AED's (Keppra) (will consider dose reduction re: somnolence) - continue pertinent home med's - continue enteral nutrition as tolerated - continue accuchecks q6h with glycemic control per SSI for target BG 140-180 mg/dL - will likely need outpatient PSG to evaluate JOE - continue other care per attending / other home sales consultant's ....... re-evaluate in am & prn CODE STATUS: FULL CODE The high probability of a clinically significant, sudden or life-threatening deterioration of the [cardiac, neurology] system(s) required my full and direct attention, intervention and personal management. The aggregate critical care time was [32] minutes without overlap. Time includes spent on; [x] Data Review and interpretation [x] Patient assessment and monitoring of vital signs [x] Documentation [x] Medication orders and management Subjective Date of service: 05/01/18 Principal diagnosis: Ac Hypoxemic Resp Failure; Seizures; Encephalopathy; DM II; Rhabdomyolysis Interval history: Patient is seen today for: Acute Hypoxemic Respiratory Failure; New Onset Seizures (presumed secondary to Hypoglycemia); Acute Encephalopathy (Toxic - Metabolic); Diabetes Type II; Rhabdomyolysis Seen and examined at bedside; 24hour events reviewed; nursing and respiratory care staff consulted; no adverse overnight events reported to me; resting peacefully in bed; s/p trach & PEG yesterday; spiked fever to 101.2F yesterday and cultures sent; NGTD; AMS is persistent; on PSV trial and tolerating well so far Objective Vital Signs - 12hr 05/01/18 05/01/18 05/01/18 01:00 01:30 02:00 Temperature Pulse Rate 82 82 88 Pulse Rate [ Apical] Pulse Rate [ From Monitor] Respiratory 24 18 19 Rate Blood Pressure 157/69 127/66 127/66 O2 Sat by Pulse 99 98 96 Oximetry O2 Sat by Pulse Oximetry [ Assessment] 05/01/18 05/01/18 05/01/18 02:30 03:00 03:30 Temperature Pulse Rate 90 91 H 84 Pulse Rate [ Apical] Pulse Rate [ From Monitor] Respiratory 19 24 22 Rate Blood Pressure 112/67 114/57 166/68 O2 Sat by Pulse 97 100 99 Oximetry O2 Sat by Pulse Oximetry [ Assessment] 05/01/18 05/01/18 05/01/18 04:00 04:30 05:00 Temperature 100.2 F H Pulse Rate 76 87 82 Pulse Rate [ 85 Apical] Pulse Rate [ From Monitor] Respiratory 17 25 H 21 Rate Blood Pressure 143/58 143/58 143/58 O2 Sat by Pulse 98 100 99 Oximetry O2 Sat by Pulse Oximetry [ Assessment] 05/01/18 05/01/18 05/01/18 05:30 05:58 06:00 Temperature Pulse Rate 84 82 76 Pulse Rate [ Apical] Pulse Rate [ From Monitor] Respiratory 24 20 Rate Blood Pressure 135/66 126/66 124/67 O2 Sat by Pulse 99 100 Oximetry O2 Sat by Pulse Oximetry [ Assessment] 05/01/18 05/01/18 05/01/18 06:30 07:00 07:30 Temperature Pulse Rate 77 73 80 Pulse Rate [ Apical] Pulse Rate [ From Monitor] Respiratory 17 16 21 Rate Blood Pressure 124/67 124/67 135/61 O2 Sat by Pulse 100 99 100 Oximetry O2 Sat by Pulse Oximetry [ Assessment] 05/01/18 05/01/18 05/01/18 08:00 08:05 08:15 Temperature 99.9 F H Pulse Rate 69 78 Pulse Rate [ Apical] Pulse Rate [ 87 From Monitor] Respiratory 18 Rate Blood Pressure 136/58 135/58 O2 Sat by Pulse 99 100 100 Oximetry O2 Sat by Pulse 100 Oximetry [ Assessment] 05/01/18 05/01/18 05/01/18 08:30 09:00 09:21 Temperature Pulse Rate 79 64 78 Pulse Rate [ Apical] Pulse Rate [ From Monitor] Respiratory 22 18 Rate Blood Pressure 125/68 155/75 135/58 O2 Sat by Pulse 100 99 Oximetry O2 Sat by Pulse Oximetry [ Assessment] 05/01/18 05/01/18 05/01/18 09:30 10:00 10:30 Temperature Pulse Rate 77 68 80 Pulse Rate [ Apical] Pulse Rate [ From Monitor] Respiratory 16 20 21 Rate Blood Pressure 134/66 113/56 113/56 O2 Sat by Pulse 100 99 99 Oximetry O2 Sat by Pulse Oximetry [ Assessment] 05/01/18 05/01/18 05/01/18 11:00 11:30 12:00 Temperature 100.3 F H Pulse Rate 74 81 79 Pulse Rate [ Apical] Pulse Rate [ 89 From Monitor] Respiratory 16 23 21 Rate Blood Pressure 113/56 136/59 127/63 O2 Sat by Pulse 100 100 100 Oximetry O2 Sat by Pulse Oximetry [ Assessment] 05/01/18 05/01/18 12:30 12:48 Temperature Pulse Rate 75 91 H Pulse Rate [ Apical] Pulse Rate [ From Monitor] Respiratory 22 Rate Blood Pressure 127/63 131/67 O2 Sat by Pulse 99 100 Oximetry O2 Sat by Pulse Oximetry [ Assessment] Constitutional: no acute distress, other (Elderly looking AAM, normocephalic and atraumatic with mildly increased respiratory effort on MVS) Eyes: non-icteric ENT: oropharynx moist, other (s/p tracheostomy) Neck: supple, no lymphadenopathy, no JVD, other (large neck circumference) Effort: mildly labored Ascultation: Bilateral: diminished breath sounds, rhonchi Percussion: Bilateral: not dull Cardiovascular: regular rate and rhythm Gastrointestinal: normoactive bowel sounds, soft, non-tender, non-distended, other (protuberant) Integumentary: normal Extremities: no cyanosis, no edema, pulses normal, no ischemia or petechiae Neurologic: non-focal exam (grossly), unable to assess, other (opens eyes spontaneously, not following my prompts) Psychiatric: other (unable to assess) CBC and BMP: 04/29/18 13:29 04/29/18 13:29 ABG, PT/INR, D-dimer: ABG POC ABG pH 7.471 (7.35-7.45) H 04/25/18 13:06 POC ABG pCO2 43.5 (35-45) 04/25/18 13:06 POC ABG pO2 115 (80-105) H 04/25/18 13:06 POC ABG HCO3 31.7 04/25/18 13:06 POC ABG Total CO2 33 04/25/18 13:06 POC ABG O2 Sat 99 04/25/18 13:06 PT/INR, D-dimer PT 13.8 Sec. (12.2-14.9) 04/29/18 21:03 INR 1.00 (0.87-1.13) 04/29/18 21:03 Abnormal lab findings: Abnormal Labs 04/09/18 04/09/18 04/09/18 23:16 23:16 23:16 WBC 13.6 H Hct MCHC RDW Plt Count Lymph % (Auto) 9.4 L [place] % (Auto) Lymph # [place] # Seg Neutrophils % 87.3 H Seg Neutrophils # 11.9 H POC ABG pH POC ABG pCO2 POC ABG pO2 Sodium 132 L Potassium Chloride 92.7 L Carbon Dioxide BUN Glucose 143 H POC Glucose Hemoglobin A1c Lactic Acid 2.10 H* Calcium Phosphorus Magnesium Total Bilirubin 2.20 H Direct Bilirubin AST 107 H Total Creatine Kinase CK-MB (CK-2) C-Reactive Protein Total Protein Albumin TSH Free T4 04/10/18 04/10/18 04/10/18 00:38 00:55 01:13 WBC Hct MCHC RDW Plt Count Lymph % (Auto) [place] % (Auto) Lymph # [place] # Seg Neutrophils % Seg Neutrophils # POC ABG pH POC ABG pCO2 POC ABG pO2 Sodium Potassium Chloride Carbon Dioxide BUN Glucose POC Glucose 117 H 121 H Hemoglobin A1c Lactic Acid 2.10 H* Calcium Phosphorus Magnesium Total Bilirubin Direct Bilirubin AST Total Creatine Kinase CK-MB (CK-2) C-Reactive Protein Total Protein Albumin TSH Free T4 04/10/18 04/10/18 04/10/18 02:10 03:51 04:07 WBC 14.0 H Hct MCHC RDW Plt Count Lymph % (Auto) 7.5 L [place] % (Auto) Lymph # 1.1 L [place] # 1.0 H Seg Neutrophils % 84.9 H Seg Neutrophils # 11.8 H POC ABG pH POC ABG pCO2 POC ABG pO2 Sodium Potassium Chloride Carbon Dioxide BUN Glucose POC Glucose 153 H 158 H Hemoglobin A1c Lactic Acid Calcium Phosphorus Magnesium Total Bilirubin Direct Bilirubin AST Total Creatine Kinase CK-MB (CK-2) C-Reactive Protein Total Protein Albumin TSH Free T4 04/10/18 04/10/18 04/10/18 04:07 06:56 09:48 WBC Hct MCHC RDW Plt Count Lymph % (Auto) [place] % (Auto) Lymph # [place] # Seg Neutrophils % Seg Neutrophils # POC ABG pH POC ABG pCO2 POC ABG pO2 Sodium 130 L Potassium Chloride 93.4 L Carbon Dioxide BUN Glucose 180 H POC Glucose 251 H 245 H Hemoglobin A1c Lactic Acid Calcium 7.9 L D Phosphorus Magnesium Total Bilirubin Direct Bilirubin AST Total Creatine Kinase 7857 H CK-MB (CK-2) 34.3 H C-Reactive Protein Total Protein Albumin TSH Free T4 04/10/18 04/10/18 04/10/18 10:37 12:44 17:31 WBC Hct MCHC RDW Plt Count Lymph % (Auto) [place] % (Auto) Lymph # [place] # Seg Neutrophils % Seg Neutrophils # POC ABG pH POC ABG pCO2 45.6 H POC ABG pO2 374 H Sodium Potassium Chloride Carbon Dioxide BUN Glucose POC Glucose 348 H Hemoglobin A1c Lactic Acid Calcium Phosphorus Magnesium Total Bilirubin Direct Bilirubin AST Total Creatine Kinase 9880 H CK-MB (CK-2) 30.0 H C-Reactive Protein Total Protein Albumin TSH Free T4 04/10/18 04/11/18 04/11/18 23:36 03:52 04:28 WBC 12.2 H Hct MCHC RDW Plt Count 132 L Lymph % (Auto) [place] % (Auto) 10.2 H Lymph # [place] # 1.2 H Seg Neutrophils % 75.1 H Seg Neutrophils # 9.1 H POC ABG pH 7.495 H POC ABG pCO2 32.4 L POC ABG pO2 Sodium Potassium Chloride Carbon Dioxide BUN Glucose POC Glucose 148 H Hemoglobin A1c Lactic Acid Calcium Phosphorus Magnesium Total Bilirubin Direct Bilirubin AST Total Creatine Kinase CK-MB (CK-2) C-Reactive Protein Total Protein Albumin TSH Free T4 04/11/18 04/11/18 04/11/18 04:28 04:28 05:22 WBC Hct MCHC RDW Plt Count Lymph % (Auto) [place] % (Auto) Lymph # [place] # Seg Neutrophils % Seg Neutrophils # POC ABG pH POC ABG pCO2 POC ABG pO2 Sodium 133 L Potassium 3.5 L Chloride 95.1 L Carbon Dioxide BUN 7 L Glucose 206 H POC Glucose 178 H Hemoglobin A1c 6.4 H Lactic Acid Calcium 7.7 L Phosphorus 1.80 L Magnesium 1.50 L Total Bilirubin 4.10 H Direct Bilirubin AST 168 H Total Creatine Kinase 9352 H CK-MB (CK-2) C-Reactive Protein Total Protein Albumin 3.4 L TSH Free T4 04/11/18 04/11/18 04/11/18 11:28 13:43 17:30 WBC Hct MCHC RDW Plt Count Lymph % (Auto) [place] % (Auto) Lymph # [place] # Seg Neutrophils % Seg Neutrophils # POC ABG pH POC ABG pCO2 POC ABG pO2 Sodium Potassium Chloride Carbon Dioxide BUN Glucose POC Glucose 196 H 142 H Hemoglobin A1c Lactic Acid Calcium Phosphorus Magnesium Total Bilirubin Direct Bilirubin AST Total Creatine Kinase CK-MB (CK-2) C-Reactive Protein 7.20 H Total Protein Albumin TSH Free T4 04/11/18 04/11/18 04/12/18 18:59 23:23 04:00 WBC Hct MCHC RDW Plt Count Lymph % (Auto) [place] % (Auto) Lymph # [place] # Seg Neutrophils % Seg Neutrophils # POC ABG pH 7.489 H POC ABG pCO2 34.5 L POC ABG pO2 Sodium Potassium 3.3 L Chloride Carbon Dioxide BUN 6 L Glucose 151 H POC Glucose 129 H Hemoglobin A1c Lactic Acid Calcium 7.3 L Phosphorus 2.00 L Magnesium Total Bilirubin 2.80 H Direct Bilirubin AST 121 H Total Creatine Kinase 5177 H CK-MB (CK-2) C-Reactive Protein Total Protein 5.9 L Albumin 3.1 L TSH Free T4 04/12/18 04/12/18 04/12/18 04:00 04:04 05:21 WBC Hct 34.9 L MCHC 35 H RDW Plt Count 128 L Lymph % (Auto) [place] % (Auto) 10.6 H Lymph # [place] # 0.9 H Seg Neutrophils % Seg Neutrophils # POC ABG pH 7.454 H POC ABG pCO2 POC ABG pO2 Sodium Potassium Chloride Carbon Dioxide BUN Glucose POC Glucose 136 H Hemoglobin A1c Lactic Acid Calcium Phosphorus Magnesium Total Bilirubin Direct Bilirubin AST Total Creatine Kinase CK-MB (CK-2) C-Reactive Protein Total Protein Albumin TSH Free T4 04/12/18 04/13/18 04/13/18 11:23 00:21 04:57 WBC Hct MCHC RDW Plt Count Lymph % (Auto) [place] % (Auto) Lymph # [place] # Seg Neutrophils % Seg Neutrophils # POC ABG pH POC ABG pCO2 34.7 L POC ABG pO2 125 H Sodium Potassium Chloride Carbon Dioxide BUN Glucose POC Glucose 166 H 143 H Hemoglobin A1c Lactic Acid Calcium Phosphorus Magnesium Total Bilirubin Direct Bilirubin AST Total Creatine Kinase CK-MB (CK-2) C-Reactive Protein Total Protein Albumin TSH Free T4 04/13/18 04/13/18 04/13/18 05:02 05:02 12:16 WBC Hct MCHC RDW Plt Count Lymph % (Auto) [place] % (Auto) Lymph # [place] # Seg Neutrophils % Seg Neutrophils # POC ABG pH POC ABG pCO2 POC ABG pO2 Sodium Potassium Chloride Carbon Dioxide BUN Glucose POC Glucose 161 H 170 H Hemoglobin A1c Lactic Acid Calcium Phosphorus Magnesium Total Bilirubin Direct Bilirubin AST Total Creatine Kinase 3456 H CK-MB (CK-2) C-Reactive Protein Total Protein Albumin TSH Free T4 04/13/18 04/13/18 04/14/18 18:52 23:09 04:35 WBC Hct MCHC RDW Plt Count Lymph % (Auto) [place] % (Auto) Lymph # [place] # Seg Neutrophils % Seg Neutrophils # POC ABG pH 7.467 H POC ABG pCO2 POC ABG pO2 Sodium Potassium Chloride Carbon Dioxide BUN Glucose POC Glucose 196 H 219 H Hemoglobin A1c Lactic Acid Calcium Phosphorus Magnesium Total Bilirubin Direct Bilirubin AST Total Creatine Kinase CK-MB (CK-2) C-Reactive Protein Total Protein Albumin TSH Free T4 04/14/18 04/14/18 04/14/18 05:00 05:26 11:20 WBC Hct MCHC RDW Plt Count Lymph % (Auto) [place] % (Auto) Lymph # [place] # Seg Neutrophils % Seg Neutrophils # POC ABG pH POC ABG pCO2 POC ABG pO2 Sodium Potassium Chloride Carbon Dioxide BUN Glucose POC Glucose 249 H 260 H Hemoglobin A1c Lactic Acid Calcium Phosphorus Magnesium Total Bilirubin Direct Bilirubin AST Total Creatine Kinase 2247 H CK-MB (CK-2) C-Reactive Protein Total Protein Albumin TSH Free T4 04/14/18 04/14/18 04/14/18 17:04 17:51 23:53 WBC Hct MCHC RDW Plt Count Lymph % (Auto) [place] % (Auto) Lymph # [place] # Seg Neutrophils % Seg Neutrophils # POC ABG pH POC ABG pCO2 POC ABG pO2 79 L Sodium Potassium Chloride Carbon Dioxide BUN Glucose POC Glucose 284 H 203 H Hemoglobin A1c Lactic Acid Calcium Phosphorus Magnesium Total Bilirubin Direct Bilirubin AST Total Creatine Kinase CK-MB (CK-2) C-Reactive Protein Total Protein Albumin TSH Free T4 04/15/18 04/15/18 04/15/18 04:24 05:26 12:56 WBC Hct MCHC RDW Plt Count Lymph % (Auto) [place] % (Auto) Lymph # [place] # Seg Neutrophils % Seg Neutrophils # POC ABG pH POC ABG pCO2 45.4 H POC ABG pO2 78 L Sodium Potassium Chloride Carbon Dioxide BUN Glucose POC Glucose 194 H 200 H Hemoglobin A1c Lactic Acid Calcium Phosphorus Magnesium Total Bilirubin Direct Bilirubin AST Total Creatine Kinase CK-MB (CK-2) C-Reactive Protein Total Protein Albumin TSH Free T4 04/15/18 04/15/18 04/16/18 17:46 23:57 05:08 WBC Hct MCHC RDW Plt Count Lymph % (Auto) [place] % (Auto) Lymph # [place] # Seg Neutrophils % Seg Neutrophils # POC ABG pH POC ABG pCO2 POC ABG pO2 Sodium Potassium Chloride Carbon Dioxide BUN Glucose POC Glucose 118 H 204 H 221 H Hemoglobin A1c Lactic Acid Calcium Phosphorus Magnesium Total Bilirubin Direct Bilirubin AST Total Creatine Kinase CK-MB (CK-2) C-Reactive Protein Total Protein Albumin TSH Free T4 04/16/18 04/16/18 04/16/18 05:16 12:23 13:07 WBC Hct MCHC RDW Plt Count Lymph % (Auto) [place] % (Auto) Lymph # [place] # Seg Neutrophils % Seg Neutrophils # POC ABG pH 7.456 H POC ABG pCO2 46.7 H POC ABG pO2 Sodium Potassium Chloride Carbon Dioxide BUN Glucose POC Glucose 271 H Hemoglobin A1c Lactic Acid Calcium Phosphorus Magnesium Total Bilirubin Direct Bilirubin AST Total Creatine Kinase CK-MB (CK-2) C-Reactive Protein Total Protein Albumin TSH Free T4 04/16/18 04/17/18 04/17/18 19:14 00:08 05:46 WBC Hct MCHC RDW Plt Count Lymph % (Auto) [place] % (Auto) Lymph # [place] # Seg Neutrophils % Seg Neutrophils # POC ABG pH POC ABG pCO2 POC ABG pO2 Sodium Potassium Chloride Carbon Dioxide BUN Glucose POC Glucose 221 H 238 H 274 H Hemoglobin A1c Lactic Acid Calcium Phosphorus Magnesium Total Bilirubin Direct Bilirubin AST Total Creatine Kinase CK-MB (CK-2) C-Reactive Protein Total Protein Albumin TSH Free T4 04/17/18 04/17/18 04/17/18 13:50 13:59 14:20 WBC Hct MCHC RDW Plt Count Lymph % (Auto) [place] % (Auto) Lymph # [place] # Seg Neutrophils % Seg Neutrophils # POC ABG pH 7.474 H POC ABG pCO2 POC ABG pO2 Sodium Potassium 3.4 L Chloride 93.6 L Carbon Dioxide 33 H BUN Glucose 305 H POC Glucose 315 H Hemoglobin A1c Lactic Acid Calcium Phosphorus Magnesium Total Bilirubin Direct Bilirubin AST Total Creatine Kinase CK-MB (CK-2) C-Reactive Protein Total Protein Albumin TSH Free T4 04/17/18 04/17/18 04/18/18 17:04 23:26 04:20 WBC Hct MCHC RDW Plt Count Lymph % (Auto) [place] % (Auto) Lymph # [place] # Seg Neutrophils % Seg Neutrophils # POC ABG pH 7.473 H POC ABG pCO2 POC ABG pO2 Sodium Potassium Chloride Carbon Dioxide BUN Glucose POC Glucose 280 H 284 H Hemoglobin A1c Lactic Acid Calcium Phosphorus Magnesium Total Bilirubin Direct Bilirubin AST Total Creatine Kinase CK-MB (CK-2) C-Reactive Protein Total Protein Albumin TSH Free T4 04/18/18 04/18/18 04/18/18 05:14 08:32 11:00 WBC Hct MCHC RDW Plt Count Lymph % (Auto) [place] % (Auto) Lymph # [place] # Seg Neutrophils % Seg Neutrophils # POC ABG pH POC ABG pCO2 POC ABG pO2 Sodium Potassium Chloride Carbon Dioxide BUN Glucose POC Glucose 286 H 296 H Hemoglobin A1c Lactic Acid Calcium Phosphorus Magnesium Total Bilirubin Direct Bilirubin 0.3 H AST 87 H Total Creatine Kinase CK-MB (CK-2) C-Reactive Protein Total Protein Albumin 3.7 L TSH Free T4 04/18/18 04/18/18 04/19/18 12:03 18:15 00:08 WBC Hct MCHC RDW Plt Count Lymph % (Auto) [place] % (Auto) Lymph # [place] # Seg Neutrophils % Seg Neutrophils # POC ABG pH POC ABG pCO2 POC ABG pO2 Sodium Potassium Chloride Carbon Dioxide BUN Glucose POC Glucose 353 H 327 H 331 H Hemoglobin A1c Lactic Acid Calcium Phosphorus Magnesium Total Bilirubin Direct Bilirubin AST Total Creatine Kinase CK-MB (CK-2) C-Reactive Protein Total Protein Albumin TSH Free T4 04/19/18 04/19/18 04/19/18 04:46 05:26 11:48 WBC Hct MCHC RDW Plt Count Lymph % (Auto) [place] % (Auto) Lymph # [place] # Seg Neutrophils % Seg Neutrophils # POC ABG pH 7.497 H POC ABG pCO2 POC ABG pO2 119 H Sodium Potassium Chloride Carbon Dioxide BUN Glucose POC Glucose 323 H 266 H Hemoglobin A1c Lactic Acid Calcium Phosphorus Magnesium Total Bilirubin Direct Bilirubin AST Total Creatine Kinase CK-MB (CK-2) C-Reactive Protein Total Protein Albumin TSH Free T4 04/19/18 04/19/18 04/20/18 17:52 23:37 00:07 WBC Hct MCHC RDW Plt Count Lymph % (Auto) [place] % (Auto) Lymph # [place] # Seg Neutrophils % Seg Neutrophils # POC ABG pH POC ABG pCO2 POC ABG pO2 Sodium Potassium Chloride Carbon Dioxide BUN Glucose POC Glucose 284 H 285 H 312 H Hemoglobin A1c Lactic Acid Calcium Phosphorus Magnesium Total Bilirubin Direct Bilirubin AST Total Creatine Kinase CK-MB (CK-2) C-Reactive Protein Total Protein Albumin TSH Free T4 04/20/18 04/20/18 04/20/18 04:09 04:09 04:37 WBC Hct 34.7 L MCHC 35 H RDW Plt Count Lymph % (Auto) [place] % (Auto) Lymph # [place] # Seg Neutrophils % Seg Neutrophils # POC ABG pH POC ABG pCO2 POC ABG pO2 Sodium Potassium 3.5 L Chloride 95.7 L Carbon Dioxide 34 H BUN Glucose 286 H POC Glucose 267 H Hemoglobin A1c Lactic Acid Calcium Phosphorus Magnesium Total Bilirubin Direct Bilirubin AST Total Creatine Kinase CK-MB (CK-2) C-Reactive Protein Total Protein Albumin TSH Free T4 04/20/18 04/20/18 04/20/18 12:32 17:54 21:07 WBC Hct MCHC RDW Plt Count Lymph % (Auto) [place] % (Auto) Lymph # [place] # Seg Neutrophils % Seg Neutrophils # POC ABG pH POC ABG pCO2 POC ABG pO2 Sodium Potassium Chloride Carbon Dioxide BUN Glucose POC Glucose 220 H 298 H 187 H Hemoglobin A1c Lactic Acid Calcium Phosphorus Magnesium Total Bilirubin Direct Bilirubin AST Total Creatine Kinase CK-MB (CK-2) C-Reactive Protein Total Protein Albumin TSH Free T4 04/21/18 04/21/18 04/21/18 00:04 05:00 05:41 WBC Hct MCHC RDW Plt Count Lymph % (Auto) [place] % (Auto) Lymph # [place] # Seg Neutrophils % Seg Neutrophils # POC ABG pH POC ABG pCO2 POC ABG pO2 Sodium Potassium Chloride 95.2 L Carbon Dioxide 34 H BUN Glucose 179 H POC Glucose 183 H 166 H Hemoglobin A1c Lactic Acid Calcium Phosphorus Magnesium Total Bilirubin Direct Bilirubin AST Total Creatine Kinase CK-MB (CK-2) C-Reactive Protein Total Protein Albumin TSH Free T4 04/21/18 04/21/18 04/21/18 11:55 18:09 23:36 WBC Hct MCHC RDW Plt Count Lymph % (Auto) [place] % (Auto) Lymph # [place] # Seg Neutrophils % Seg Neutrophils # POC ABG pH POC ABG pCO2 POC ABG pO2 Sodium Potassium Chloride Carbon Dioxide BUN Glucose POC Glucose 219 H 247 H 229 H Hemoglobin A1c Lactic Acid Calcium Phosphorus Magnesium Total Bilirubin Direct Bilirubin AST Total Creatine Kinase CK-MB (CK-2) C-Reactive Protein Total Protein Albumin TSH Free T4 04/22/18 04/22/18 04/22/18 04:07 04:07 05:08 WBC Hct MCHC 35 H RDW 15.3 H Plt Count Lymph % (Auto) [place] % (Auto) Lymph # [place] # Seg Neutrophils % Seg Neutrophils # POC ABG pH POC ABG pCO2 POC ABG pO2 Sodium Potassium Chloride 97.4 L Carbon Dioxide 31 H BUN Glucose 177 H POC Glucose 200 H Hemoglobin A1c Lactic Acid Calcium Phosphorus Magnesium Total Bilirubin Direct Bilirubin AST Total Creatine Kinase CK-MB (CK-2) C-Reactive Protein Total Protein Albumin TSH Free T4 04/22/18 04/22/18 04/23/18 12:15 18:04 04:55 WBC Hct MCHC RDW Plt Count Lymph % (Auto) [place] % (Auto) Lymph # [place] # Seg Neutrophils % Seg Neutrophils # POC ABG pH POC ABG pCO2 POC ABG pO2 Sodium Potassium Chloride Carbon Dioxide BUN 23 H Glucose 274 H POC Glucose 189 H 191 H Hemoglobin A1c Lactic Acid Calcium Phosphorus Magnesium Total Bilirubin Direct Bilirubin AST Total Creatine Kinase CK-MB (CK-2) C-Reactive Protein Total Protein Albumin TSH Free T4 04/23/18 04/23/18 04/23/18 05:21 11:06 17:46 WBC Hct MCHC RDW Plt Count Lymph % (Auto) [place] % (Auto) Lymph # [place] # Seg Neutrophils % Seg Neutrophils # POC ABG pH POC ABG pCO2 POC ABG pO2 Sodium Potassium Chloride Carbon Dioxide BUN Glucose POC Glucose 143 H 176 H 142 H Hemoglobin A1c Lactic Acid Calcium Phosphorus Magnesium Total Bilirubin Direct Bilirubin AST Total Creatine Kinase CK-MB (CK-2) C-Reactive Protein Total Protein Albumin TSH Free T4 04/23/18 04/24/18 04/24/18 23:35 06:02 11:37 WBC Hct MCHC RDW Plt Count Lymph % (Auto) [place] % (Auto) Lymph # [place] # Seg Neutrophils % Seg Neutrophils # POC ABG pH POC ABG pCO2 POC ABG pO2 Sodium Potassium Chloride Carbon Dioxide BUN Glucose POC Glucose 127 H 175 H 188 H Hemoglobin A1c Lactic Acid Calcium Phosphorus Magnesium Total Bilirubin Direct Bilirubin AST Total Creatine Kinase CK-MB (CK-2) C-Reactive Protein Total Protein Albumin TSH Free T4 04/24/18 04/24/18 04/24/18 16:50 18:40 20:23 WBC Hct MCHC RDW Plt Count Lymph % (Auto) [place] % (Auto) Lymph # [place] # Seg Neutrophils % Seg Neutrophils # POC ABG pH POC ABG pCO2 POC ABG pO2 Sodium Potassium Chloride Carbon Dioxide BUN Glucose POC Glucose 134 H 148 H Hemoglobin A1c Lactic Acid Calcium Phosphorus Magnesium Total Bilirubin Direct Bilirubin AST Total Creatine Kinase CK-MB (CK-2) C-Reactive Protein Total Protein Albumin TSH 47.760 H Free T4 0.10 L 04/24/18 04/25/18 04/25/18 23:14 05:22 05:22 WBC Hct MCHC 35 H RDW 15.4 H Plt Count Lymph % (Auto) [place] % (Auto) Lymph # [place] # Seg Neutrophils % Seg Neutrophils # POC ABG pH POC ABG pCO2 POC ABG pO2 Sodium 136 L Potassium Chloride 95.0 L Carbon Dioxide BUN Glucose 210 H POC Glucose 145 H Hemoglobin A1c Lactic Acid Calcium Phosphorus Magnesium Total Bilirubin Direct Bilirubin AST Total Creatine Kinase CK-MB (CK-2) C-Reactive Protein Total Protein Albumin TSH Free T4 04/25/18 04/25/18 04/25/18 05:44 12:19 13:06 WBC Hct MCHC RDW Plt Count Lymph % (Auto) [place] % (Auto) Lymph # [place] # Seg Neutrophils % Seg Neutrophils # POC ABG pH 7.471 H POC ABG pCO2 POC ABG pO2 115 H Sodium Potassium Chloride Carbon Dioxide BUN Glucose POC Glucose 176 H 231 H Hemoglobin A1c Lactic Acid Calcium Phosphorus Magnesium Total Bilirubin Direct Bilirubin AST Total Creatine Kinase CK-MB (CK-2) C-Reactive Protein Total Protein Albumin TSH Free T4 04/25/18 04/25/18 04/26/18 17:54 20:09 00:01 WBC Hct MCHC RDW Plt Count Lymph % (Auto) [place] % (Auto) Lymph # [place] # Seg Neutrophils % Seg Neutrophils # POC ABG pH POC ABG pCO2 POC ABG pO2 Sodium Potassium Chloride Carbon Dioxide BUN Glucose POC Glucose 196 H 119 H 174 H Hemoglobin A1c Lactic Acid Calcium Phosphorus Magnesium Total Bilirubin Direct Bilirubin AST Total Creatine Kinase CK-MB (CK-2) C-Reactive Protein Total Protein Albumin TSH Free T4 04/26/18 04/26/18 04/26/18 05:10 12:03 15:20 WBC Hct MCHC RDW Plt Count Lymph % (Auto) [place] % (Auto) Lymph # [place] # Seg Neutrophils % Seg Neutrophils # POC ABG pH POC ABG pCO2 POC ABG pO2 Sodium Potassium Chloride Carbon Dioxide BUN Glucose POC Glucose 212 H 222 H 113 H Hemoglobin A1c Lactic Acid Calcium Phosphorus Magnesium Total Bilirubin Direct Bilirubin AST Total Creatine Kinase CK-MB (CK-2) C-Reactive Protein Total Protein Albumin TSH Free T4 04/26/18 04/26/18 04/27/18 18:08 23:39 05:10 WBC Hct MCHC RDW Plt Count Lymph % (Auto) [place] % (Auto) Lymph # [place] # Seg Neutrophils % Seg Neutrophils # POC ABG pH POC ABG pCO2 POC ABG pO2 Sodium Potassium Chloride Carbon Dioxide BUN Glucose POC Glucose 110 H 165 H 137 H Hemoglobin A1c Lactic Acid Calcium Phosphorus Magnesium Total Bilirubin Direct Bilirubin AST Total Creatine Kinase CK-MB (CK-2) C-Reactive Protein Total Protein Albumin TSH Free T4 04/27/18 04/27/18 04/27/18 10:04 11:23 17:36 WBC Hct MCHC RDW Plt Count Lymph % (Auto) [place] % (Auto) Lymph # [place] # Seg Neutrophils % Seg Neutrophils # POC ABG pH POC ABG pCO2 POC ABG pO2 Sodium Potassium Chloride Carbon Dioxide BUN Glucose POC Glucose 190 H 258 H 198 H Hemoglobin A1c Lactic Acid Calcium Phosphorus Magnesium Total Bilirubin Direct Bilirubin AST Total Creatine Kinase CK-MB (CK-2) C-Reactive Protein Total Protein Albumin TSH Free T4 04/27/18 04/28/18 04/28/18 23:23 05:19 13:06 WBC Hct MCHC RDW Plt Count Lymph % (Auto) [place] % (Auto) Lymph # [place] # Seg Neutrophils % Seg Neutrophils # POC ABG pH POC ABG pCO2 POC ABG pO2 Sodium Potassium Chloride Carbon Dioxide BUN Glucose POC Glucose 131 H 178 H 194 H Hemoglobin A1c Lactic Acid Calcium Phosphorus Magnesium Total Bilirubin Direct Bilirubin AST Total Creatine Kinase CK-MB (CK-2) C-Reactive Protein Total Protein Albumin TSH Free T4 04/28/18 04/29/18 04/29/18 16:59 00:24 13:29 WBC Hct 34.8 L MCHC RDW Plt Count Lymph % (Auto) [place] % (Auto) 9.8 H Lymph # [place] # Seg Neutrophils % Seg Neutrophils # POC ABG pH POC ABG pCO2 POC ABG pO2 Sodium Potassium Chloride Carbon Dioxide BUN Glucose POC Glucose 155 H 166 H Hemoglobin A1c Lactic Acid Calcium Phosphorus Magnesium Total Bilirubin Direct Bilirubin AST Total Creatine Kinase CK-MB (CK-2) C-Reactive Protein Total Protein Albumin TSH Free T4 04/29/18 13:29 WBC Hct MCHC RDW Plt Count Lymph % (Auto) [place] % (Auto) Lymph # [place] # Seg Neutrophils % Seg Neutrophils # POC ABG pH POC ABG pCO2 POC ABG pO2 Sodium 135 L Potassium Chloride Carbon Dioxide BUN Glucose 214 H POC Glucose Hemoglobin A1c Lactic Acid Calcium Phosphorus Magnesium Total Bilirubin Direct Bilirubin AST Total Creatine Kinase CK-MB (CK-2) C-Reactive Protein Total Protein Albumin TSH Free T4 Allied health notes reviewed: nursing
[2018-05-01 15:40] LABS: Basophils % (Auto) 0.3 % (0.0-1.8); Eosinophils % (Auto) 0.3 % (0.0-4.3); Hematocrit 33.1 % (35.5-45.6); Hemoglobin 11.3 gm/dl (11.8-15.2); Lymphocytes # (Auto) 1.3 K/mm3 (1.2-5.4); Lymphocytes % (Auto) 9.8 % (13.4-35.0); Mean Corpuscular HGB Conc 34 % (32-34); Mean Corpuscular Volume 90 fl (84-94); Monocytes % (Auto) 7.7 % (0.0-7.3); Platelet Count 252 K/mm3 (140-440); Red Cell Distribution Width 15.2 % (13.2-15.2)
--- NOTE | 2018-05-01 17:17 | Progress Note ---
Assessment and Plan 78 year old male presented on 11/07/18 with hypoglycemic encephalopathy, seizures, hypothyroidism. It has taken him a while to awaken. Currently he is more awake, moving around in the bed. He is scheduled for PEG and trach. today. He is recovering from severe, prolonged hypoglycemia and hypothyroidism. Plan - Check CT brain. Subjective Date of service: 05/01/18 Principal diagnosis: Ac Hypoxemic Resp Failure; Seizures; Encephalopathy; DM II; Rhabdomyolysis Interval history: 78 year old male with history of insulin dependent diabetes, hypertension and coronary artery disease, presented on 04/09/18, found down at home and found to be hypoglycemic. CT scans have been unremarkable. He was also found to be hypothyroid and has been receiving thyroid replacement. Because of prolonged intubation, the pt. underwent tracheostomy and PEG plac ement yeater. He has been somnolent since the procedures. Objective - Exam Narrative Exam: Eyes closed No response to voice or chest rub. No spontaneous movment. Min. withdrawal to pain. Reflexes down throughout. - Vital Sign Vital Signs - 12hr 05/01/18 05/01/18 05/01/18 05:30 05:58 06:00 Temperature Pulse Rate 84 82 76 Pulse Rate [ From Monitor] Respiratory 24 20 Rate Blood Pressure 135/66 126/66 124/67 O2 Sat by Pulse 99 100 Oximetry O2 Sat by Pulse Oximetry [ Assessment] 05/01/18 05/01/18 05/01/18 06:30 07:00 07:30 Temperature Pulse Rate 77 73 80 Pulse Rate [ From Monitor] Respiratory 17 16 21 Rate Blood Pressure 124/67 124/67 135/61 O2 Sat by Pulse 100 99 100 Oximetry O2 Sat by Pulse Oximetry [ Assessment] 05/01/18 05/01/18 05/01/18 08:00 08:05 08:15 Temperature 99.9 F H Pulse Rate 69 78 Pulse Rate [ 87 From Monitor] Respiratory 18 Rate Blood Pressure 136/58 135/58 O2 Sat by Pulse 99 100 100 Oximetry O2 Sat by Pulse 100 Oximetry [ Assessment] 05/01/18 05/01/18 05/01/18 08:30 09:00 09:21 Temperature Pulse Rate 79 64 78 Pulse Rate [ From Monitor] Respiratory 22 18 Rate Blood Pressure 125/68 155/75 135/58 O2 Sat by Pulse 100 99 Oximetry O2 Sat by Pulse Oximetry [ Assessment] 05/01/18 05/01/18 05/01/18 09:30 10:00 10:30 Temperature Pulse Rate 77 68 80 Pulse Rate [ From Monitor] Respiratory 16 20 21 Rate Blood Pressure 134/66 113/56 113/56 O2 Sat by Pulse 100 99 99 Oximetry O2 Sat by Pulse Oximetry [ Assessment] 05/01/18 05/01/18 05/01/18 11:00 11:30 12:00 Temperature 100.3 F H Pulse Rate 74 81 79 Pulse Rate [ 89 From Monitor] Respiratory 16 23 21 Rate Blood Pressure 113/56 136/59 127/63 O2 Sat by Pulse 100 100 100 Oximetry O2 Sat by Pulse Oximetry [ Assessment] 05/01/18 05/01/18 05/01/18 12:30 12:48 13:00 Temperature Pulse Rate 75 91 H 76 Pulse Rate [ From Monitor] Respiratory 22 25 H Rate Blood Pressure 127/63 131/67 131/67 O2 Sat by Pulse 99 100 99 Oximetry O2 Sat by Pulse Oximetry [ Assessment] 05/01/18 05/01/18 05/01/18 13:08 13:30 13:46 Temperature Pulse Rate 91 H 78 79 Pulse Rate [ From Monitor] Respiratory 23 20 Rate Blood Pressure 131/67 132/65 131/61 O2 Sat by Pulse 100 100 Oximetry O2 Sat by Pulse Oximetry [ Assessment] 05/01/18 05/01/18 05/01/18 14:00 14:16 14:30 Temperature Pulse Rate 78 77 74 Pulse Rate [ From Monitor] Respiratory 23 22 23 Rate Blood Pressure 132/65 137/63 131/60 O2 Sat by Pulse 100 99 100 Oximetry O2 Sat by Pulse Oximetry [ Assessment] 05/01/18 05/01/18 05/01/18 14:46 15:00 15:16 Temperature Pulse Rate 80 83 94 H Pulse Rate [ From Monitor] Respiratory 22 19 24 Rate Blood Pressure 131/60 131/68 131/68 O2 Sat by Pulse 99 100 100 Oximetry O2 Sat by Pulse Oximetry [ Assessment] 05/01/18 05/01/18 05/01/18 15:30 15:46 16:00 Temperature 102.8 F H Pulse Rate 98 H 92 H 96 H Pulse Rate [ 91 H From Monitor] Respiratory 15 25 H 24 Rate Blood Pressure 131/68 131/68 131/68 O2 Sat by Pulse 100 99 99 Oximetry O2 Sat by Pulse Oximetry [ Assessment] 05/01/18 05/01/18 05/01/18 16:16 16:30 16:46 Temperature Pulse Rate 91 H 81 78 Pulse Rate [ From Monitor] Respiratory 27 H 23 21 Rate Blood Pressure 131/68 122/61 122/61 O2 Sat by Pulse 100 100 100 Oximetry O2 Sat by Pulse Oximetry [ Assessment] 05/01/18 05/01/18 16:57 17:00 Temperature Pulse Rate 91 H 94 H Pulse Rate [ From Monitor] Respiratory 12 Rate Blood Pressure 122/61 136/65 O2 Sat by Pulse 100 99 Oximetry O2 Sat by Pulse 100 Oximetry [ Assessment] - Laboratory Findings CBC and BMP: 05/01/18 15:05 04/29/18 13:29 Abnormal Lab Findings: Abnormal Labs 04/09/18 04/09/18 04/09/18 23:16 23:16 23:16 WBC 13.6 H Hgb Hct MCHC RDW Plt Count Lymph % (Auto) 9.4 L [place] % (Auto) Lymph # [place] # Seg Neutrophils % 87.3 H Seg Neutrophils # 11.9 H POC ABG pH POC ABG pCO2 POC ABG pO2 Sodium 132 L Potassium Chloride 92.7 L Carbon Dioxide BUN Glucose 143 H POC Glucose Hemoglobin A1c Lactic Acid 2.10 H* Calcium Phosphorus Magnesium Total Bilirubin 2.20 H Direct Bilirubin AST 107 H Total Creatine Kinase CK-MB (CK-2) C-Reactive Protein Total Protein Albumin TSH Free T4 04/10/18 04/10/18 04/10/18 00:38 00:55 01:13 WBC Hgb Hct MCHC RDW Plt Count Lymph % (Auto) [place] % (Auto) Lymph # [place] # Seg Neutrophils % Seg Neutrophils # POC ABG pH POC ABG pCO2 POC ABG pO2 Sodium Potassium Chloride Carbon Dioxide BUN Glucose POC Glucose 117 H 121 H Hemoglobin A1c Lactic Acid 2.10 H* Calcium Phosphorus Magnesium Total Bilirubin Direct Bilirubin AST Total Creatine Kinase CK-MB (CK-2) C-Reactive Protein Total Protein Albumin TSH Free T4 04/10/18 04/10/18 04/10/18 02:10 03:51 04:07 WBC 14.0 H Hgb Hct MCHC RDW Plt Count Lymph % (Auto) 7.5 L [place] % (Auto) Lymph # 1.1 L [place] # 1.0 H Seg Neutrophils % 84.9 H Seg Neutrophils # 11.8 H POC ABG pH POC ABG pCO2 POC ABG pO2 Sodium Potassium Chloride Carbon Dioxide BUN Glucose POC Glucose 153 H 158 H Hemoglobin A1c Lactic Acid Calcium Phosphorus Magnesium Total Bilirubin Direct Bilirubin AST Total Creatine Kinase CK-MB (CK-2) C-Reactive Protein Total Protein Albumin TSH Free T4 04/10/18 04/10/18 04/10/18 04:07 06:56 09:48 WBC Hgb Hct MCHC RDW Plt Count Lymph % (Auto) [place] % (Auto) Lymph # [place] # Seg Neutrophils % Seg Neutrophils # POC ABG pH POC ABG pCO2 POC ABG pO2 Sodium 130 L Potassium Chloride 93.4 L Carbon Dioxide BUN Glucose 180 H POC Glucose 251 H 245 H Hemoglobin A1c Lactic Acid Calcium 7.9 L D Phosphorus Magnesium Total Bilirubin Direct Bilirubin AST Total Creatine Kinase 7857 H CK-MB (CK-2) 34.3 H C-Reactive Protein Total Protein Albumin TSH Free T4 04/10/18 04/10/18 04/10/18 10:37 12:44 17:31 WBC Hgb Hct MCHC RDW Plt Count Lymph % (Auto) [place] % (Auto) Lymph # [place] # Seg Neutrophils % Seg Neutrophils # POC ABG pH POC ABG pCO2 45.6 H POC ABG pO2 374 H Sodium Potassium Chloride Carbon Dioxide BUN Glucose POC Glucose 348 H Hemoglobin A1c Lactic Acid Calcium Phosphorus Magnesium Total Bilirubin Direct Bilirubin AST Total Creatine Kinase 9880 H CK-MB (CK-2) 30.0 H C-Reactive Protein Total Protein Albumin TSH Free T4 04/10/18 04/11/18 04/11/18 23:36 03:52 04:28 WBC 12.2 H Hgb Hct MCHC RDW Plt Count 132 L Lymph % (Auto) [place] % (Auto) 10.2 H Lymph # [place] # 1.2 H Seg Neutrophils % 75.1 H Seg Neutrophils # 9.1 H POC ABG pH 7.495 H POC ABG pCO2 32.4 L POC ABG pO2 Sodium Potassium Chloride Carbon Dioxide BUN Glucose POC Glucose 148 H Hemoglobin A1c Lactic Acid Calcium Phosphorus Magnesium Total Bilirubin Direct Bilirubin AST Total Creatine Kinase CK-MB (CK-2) C-Reactive Protein Total Protein Albumin TSH Free T4 04/11/18 04/11/18 04/11/18 04:28 04:28 05:22 WBC Hgb Hct MCHC RDW Plt Count Lymph % (Auto) [place] % (Auto) Lymph # [place] # Seg Neutrophils % Seg Neutrophils # POC ABG pH POC ABG pCO2 POC ABG pO2 Sodium 133 L Potassium 3.5 L Chloride 95.1 L Carbon Dioxide BUN 7 L Glucose 206 H POC Glucose 178 H Hemoglobin A1c 6.4 H Lactic Acid Calcium 7.7 L Phosphorus 1.80 L Magnesium 1.50 L Total Bilirubin 4.10 H Direct Bilirubin AST 168 H Total Creatine Kinase 9352 H CK-MB (CK-2) C-Reactive Protein Total Protein Albumin 3.4 L TSH Free T4 04/11/18 04/11/18 04/11/18 11:28 13:43 17:30 WBC Hgb Hct MCHC RDW Plt Count Lymph % (Auto) [place] % (Auto) Lymph # [place] # Seg Neutrophils % Seg Neutrophils # POC ABG pH POC ABG pCO2 POC ABG pO2 Sodium Potassium Chloride Carbon Dioxide BUN Glucose POC Glucose 196 H 142 H Hemoglobin A1c Lactic Acid Calcium Phosphorus Magnesium Total Bilirubin Direct Bilirubin AST Total Creatine Kinase CK-MB (CK-2) C-Reactive Protein 7.20 H Total Protein Albumin TSH Free T4 04/11/18 04/11/18 04/12/18 18:59 23:23 04:00 WBC Hgb Hct MCHC RDW Plt Count Lymph % (Auto) [place] % (Auto) Lymph # [place] # Seg Neutrophils % Seg Neutrophils # POC ABG pH 7.489 H POC ABG pCO2 34.5 L POC ABG pO2 Sodium Potassium 3.3 L Chloride Carbon Dioxide BUN 6 L Glucose 151 H POC Glucose 129 H Hemoglobin A1c Lactic Acid Calcium 7.3 L Phosphorus 2.00 L Magnesium Total Bilirubin 2.80 H Direct Bilirubin AST 121 H Total Creatine Kinase 5177 H CK-MB (CK-2) C-Reactive Protein Total Protein 5.9 L Albumin 3.1 L TSH Free T4 04/12/18 04/12/18 04/12/18 04:00 04:04 05:21 WBC Hgb Hct 34.9 L MCHC 35 H RDW Plt Count 128 L Lymph % (Auto) [place] % (Auto) 10.6 H Lymph # [place] # 0.9 H Seg Neutrophils % Seg Neutrophils # POC ABG pH 7.454 H POC ABG pCO2 POC ABG pO2 Sodium Potassium Chloride Carbon Dioxide BUN Glucose POC Glucose 136 H Hemoglobin A1c Lactic Acid Calcium Phosphorus Magnesium Total Bilirubin Direct Bilirubin AST Total Creatine Kinase CK-MB (CK-2) C-Reactive Protein Total Protein Albumin TSH Free T4 04/12/18 04/13/18 04/13/18 11:23 00:21 04:57 WBC Hgb Hct MCHC RDW Plt Count Lymph % (Auto) [place] % (Auto) Lymph # [place] # Seg Neutrophils % Seg Neutrophils # POC ABG pH POC ABG pCO2 34.7 L POC ABG pO2 125 H Sodium Potassium Chloride Carbon Dioxide BUN Glucose POC Glucose 166 H 143 H Hemoglobin A1c Lactic Acid Calcium Phosphorus Magnesium Total Bilirubin Direct Bilirubin AST Total Creatine Kinase CK-MB (CK-2) C-Reactive Protein Total Protein Albumin TSH Free T4 04/13/18 04/13/18 04/13/18 05:02 05:02 12:16 WBC Hgb Hct MCHC RDW Plt Count Lymph % (Auto) [place] % (Auto) Lymph # [place] # Seg Neutrophils % Seg Neutrophils # POC ABG pH POC ABG pCO2 POC ABG pO2 Sodium Potassium Chloride Carbon Dioxide BUN Glucose POC Glucose 161 H 170 H Hemoglobin A1c Lactic Acid Calcium Phosphorus Magnesium Total Bilirubin Direct Bilirubin AST Total Creatine Kinase 3456 H CK-MB (CK-2) C-Reactive Protein Total Protein Albumin TSH Free T4 04/13/18 04/13/18 04/14/18 18:52 23:09 04:35 WBC Hgb Hct MCHC RDW Plt Count Lymph % (Auto) [place] % (Auto) Lymph # [place] # Seg Neutrophils % Seg Neutrophils # POC ABG pH 7.467 H POC ABG pCO2 POC ABG pO2 Sodium Potassium Chloride Carbon Dioxide BUN Glucose POC Glucose 196 H 219 H Hemoglobin A1c Lactic Acid Calcium Phosphorus Magnesium Total Bilirubin Direct Bilirubin AST Total Creatine Kinase CK-MB (CK-2) C-Reactive Protein Total Protein Albumin TSH Free T4 04/14/18 04/14/18 04/14/18 05:00 05:26 11:20 WBC Hgb Hct MCHC RDW Plt Count Lymph % (Auto) [place] % (Auto) Lymph # [place] # Seg Neutrophils % Seg Neutrophils # POC ABG pH POC ABG pCO2 POC ABG pO2 Sodium Potassium Chloride Carbon Dioxide BUN Glucose POC Glucose 249 H 260 H Hemoglobin A1c Lactic Acid Calcium Phosphorus Magnesium Total Bilirubin Direct Bilirubin AST Total Creatine Kinase 2247 H CK-MB (CK-2) C-Reactive Protein Total Protein Albumin TSH Free T4 04/14/18 04/14/18 04/14/18 17:04 17:51 23:53 WBC Hgb Hct MCHC RDW Plt Count Lymph % (Auto) [place] % (Auto) Lymph # [place] # Seg Neutrophils % Seg Neutrophils # POC ABG pH POC ABG pCO2 POC ABG pO2 79 L Sodium Potassium Chloride Carbon Dioxide BUN Glucose POC Glucose 284 H 203 H Hemoglobin A1c Lactic Acid Calcium Phosphorus Magnesium Total Bilirubin Direct Bilirubin AST Total Creatine Kinase CK-MB (CK-2) C-Reactive Protein Total Protein Albumin TSH Free T4 04/15/18 04/15/18 04/15/18 04:24 05:26 12:56 WBC Hgb Hct MCHC RDW Plt Count Lymph % (Auto) [place] % (Auto) Lymph # [place] # Seg Neutrophils % Seg Neutrophils # POC ABG pH POC ABG pCO2 45.4 H POC ABG pO2 78 L Sodium Potassium Chloride Carbon Dioxide BUN Glucose POC Glucose 194 H 200 H Hemoglobin A1c Lactic Acid Calcium Phosphorus Magnesium Total Bilirubin Direct Bilirubin AST Total Creatine Kinase CK-MB (CK-2) C-Reactive Protein Total Protein Albumin TSH Free T4 04/15/18 04/15/18 04/16/18 17:46 23:57 05:08 WBC Hgb Hct MCHC RDW Plt Count Lymph % (Auto) [place] % (Auto) Lymph # [place] # Seg Neutrophils % Seg Neutrophils # POC ABG pH POC ABG pCO2 POC ABG pO2 Sodium Potassium Chloride Carbon Dioxide BUN Glucose POC Glucose 118 H 204 H 221 H Hemoglobin A1c Lactic Acid Calcium Phosphorus Magnesium Total Bilirubin Direct Bilirubin AST Total Creatine Kinase CK-MB (CK-2) C-Reactive Protein Total Protein Albumin TSH Free T4 04/16/18 04/16/18 04/16/18 05:16 12:23 13:07 WBC Hgb Hct MCHC RDW Plt Count Lymph % (Auto) [place] % (Auto) Lymph # [place] # Seg Neutrophils % Seg Neutrophils # POC ABG pH 7.456 H POC ABG pCO2 46.7 H POC ABG pO2 Sodium Potassium Chloride Carbon Dioxide BUN Glucose POC Glucose 271 H Hemoglobin A1c Lactic Acid Calcium Phosphorus Magnesium Total Bilirubin Direct Bilirubin AST Total Creatine Kinase CK-MB (CK-2) C-Reactive Protein Total Protein Albumin TSH Free T4 04/16/18 04/17/18 04/17/18 19:14 00:08 05:46 WBC Hgb Hct MCHC RDW Plt Count Lymph % (Auto) [place] % (Auto) Lymph # [place] # Seg Neutrophils % Seg Neutrophils # POC ABG pH POC ABG pCO2 POC ABG pO2 Sodium Potassium Chloride Carbon Dioxide BUN Glucose POC Glucose 221 H 238 H 274 H Hemoglobin A1c Lactic Acid Calcium Phosphorus Magnesium Total Bilirubin Direct Bilirubin AST Total Creatine Kinase CK-MB (CK-2) C-Reactive Protein Total Protein Albumin TSH Free T4 04/17/18 04/17/18 04/17/18 13:50 13:59 14:20 WBC Hgb Hct MCHC RDW Plt Count Lymph % (Auto) [place] % (Auto) Lymph # [place] # Seg Neutrophils % Seg Neutrophils # POC ABG pH 7.474 H POC ABG pCO2 POC ABG pO2 Sodium Potassium 3.4 L Chloride 93.6 L Carbon Dioxide 33 H BUN Glucose 305 H POC Glucose 315 H Hemoglobin A1c Lactic Acid Calcium Phosphorus Magnesium Total Bilirubin Direct Bilirubin AST Total Creatine Kinase CK-MB (CK-2) C-Reactive Protein Total Protein Albumin TSH Free T4 04/17/18 04/17/18 04/18/18 17:04 23:26 04:20 WBC Hgb Hct MCHC RDW Plt Count Lymph % (Auto) [place] % (Auto) Lymph # [place] # Seg Neutrophils % Seg Neutrophils # POC ABG pH 7.473 H POC ABG pCO2 POC ABG pO2 Sodium Potassium Chloride Carbon Dioxide BUN Glucose POC Glucose 280 H 284 H Hemoglobin A1c Lactic Acid Calcium Phosphorus Magnesium Total Bilirubin Direct Bilirubin AST Total Creatine Kinase CK-MB (CK-2) C-Reactive Protein Total Protein Albumin TSH Free T4 04/18/18 04/18/18 04/18/18 05:14 08:32 11:00 WBC Hgb Hct MCHC RDW Plt Count Lymph % (Auto) [place] % (Auto) Lymph # [place] # Seg Neutrophils % Seg Neutrophils # POC ABG pH POC ABG pCO2 POC ABG pO2 Sodium Potassium Chloride Carbon Dioxide BUN Glucose POC Glucose 286 H 296 H Hemoglobin A1c Lactic Acid Calcium Phosphorus Magnesium Total Bilirubin Direct Bilirubin 0.3 H AST 87 H Total Creatine Kinase CK-MB (CK-2) C-Reactive Protein Total Protein Albumin 3.7 L TSH Free T4 04/18/18 04/18/18 04/19/18 12:03 18:15 00:08 WBC Hgb Hct MCHC RDW Plt Count Lymph % (Auto) [place] % (Auto) Lymph # [place] # Seg Neutrophils % Seg Neutrophils # POC ABG pH POC ABG pCO2 POC ABG pO2 Sodium Potassium Chloride Carbon Dioxide BUN Glucose POC Glucose 353 H 327 H 331 H Hemoglobin A1c Lactic Acid Calcium Phosphorus Magnesium Total Bilirubin Direct Bilirubin AST Total Creatine Kinase CK-MB (CK-2) C-Reactive Protein Total Protein Albumin TSH Free T4 04/19/18 04/19/18 04/19/18 04:46 05:26 11:48 WBC Hgb Hct MCHC RDW Plt Count Lymph % (Auto) [place] % (Auto) Lymph # [place] # Seg Neutrophils % Seg Neutrophils # POC ABG pH 7.497 H POC ABG pCO2 POC ABG pO2 119 H Sodium Potassium Chloride Carbon Dioxide BUN Glucose POC Glucose 323 H 266 H Hemoglobin A1c Lactic Acid Calcium Phosphorus Magnesium Total Bilirubin Direct Bilirubin AST Total Creatine Kinase CK-MB (CK-2) C-Reactive Protein Total Protein Albumin TSH Free T4 04/19/18 04/19/18 04/20/18 17:52 23:37 00:07 WBC Hgb Hct MCHC RDW Plt Count Lymph % (Auto) [place] % (Auto) Lymph # [place] # Seg Neutrophils % Seg Neutrophils # POC ABG pH POC ABG pCO2 POC ABG pO2 Sodium Potassium Chloride Carbon Dioxide BUN Glucose POC Glucose 284 H 285 H 312 H Hemoglobin A1c Lactic Acid Calcium Phosphorus Magnesium Total Bilirubin Direct Bilirubin AST Total Creatine Kinase CK-MB (CK-2) C-Reactive Protein Total Protein Albumin TSH Free T4 04/20/18 04/20/18 04/20/18 04:09 04:09 04:37 WBC Hgb Hct 34.7 L MCHC 35 H RDW Plt Count Lymph % (Auto) [place] % (Auto) Lymph # [place] # Seg Neutrophils % Seg Neutrophils # POC ABG pH POC ABG pCO2 POC ABG pO2 Sodium Potassium 3.5 L Chloride 95.7 L Carbon Dioxide 34 H BUN Glucose 286 H POC Glucose 267 H Hemoglobin A1c Lactic Acid Calcium Phosphorus Magnesium Total Bilirubin Direct Bilirubin AST Total Creatine Kinase CK-MB (CK-2) C-Reactive Protein Total Protein Albumin TSH Free T4 04/20/18 04/20/18 04/20/18 12:32 17:54 21:07 WBC Hgb Hct MCHC RDW Plt Count Lymph % (Auto) [place] % (Auto) Lymph # [place] # Seg Neutrophils % Seg Neutrophils # POC ABG pH POC ABG pCO2 POC ABG pO2 Sodium Potassium Chloride Carbon Dioxide BUN Glucose POC Glucose 220 H 298 H 187 H Hemoglobin A1c Lactic Acid Calcium Phosphorus Magnesium Total Bilirubin Direct Bilirubin AST Total Creatine Kinase CK-MB (CK-2) C-Reactive Protein Total Protein Albumin TSH Free T4 04/21/18 04/21/18 04/21/18 00:04 05:00 05:41 WBC Hgb Hct MCHC RDW Plt Count Lymph % (Auto) [place] % (Auto) Lymph # [place] # Seg Neutrophils % Seg Neutrophils # POC ABG pH POC ABG pCO2 POC ABG pO2 Sodium Potassium Chloride 95.2 L Carbon Dioxide 34 H BUN Glucose 179 H POC Glucose 183 H 166 H Hemoglobin A1c Lactic Acid Calcium Phosphorus Magnesium Total Bilirubin Direct Bilirubin AST Total Creatine Kinase CK-MB (CK-2) C-Reactive Protein Total Protein Albumin TSH Free T4 04/21/18 04/21/18 04/21/18 11:55 18:09 23:36 WBC Hgb Hct MCHC RDW Plt Count Lymph % (Auto) [place] % (Auto) Lymph # [place] # Seg Neutrophils % Seg Neutrophils # POC ABG pH POC ABG pCO2 POC ABG pO2 Sodium Potassium Chloride Carbon Dioxide BUN Glucose POC Glucose 219 H 247 H 229 H Hemoglobin A1c Lactic Acid Calcium Phosphorus Magnesium Total Bilirubin Direct Bilirubin AST Total Creatine Kinase CK-MB (CK-2) C-Reactive Protein Total Protein Albumin TSH Free T4 04/22/18 04/22/18 04/22/18 04:07 04:07 05:08 WBC Hgb Hct MCHC 35 H RDW 15.3 H Plt Count Lymph % (Auto) [place] % (Auto) Lymph # [place] # Seg Neutrophils % Seg Neutrophils # POC ABG pH POC ABG pCO2 POC ABG pO2 Sodium Potassium Chloride 97.4 L Carbon Dioxide 31 H BUN Glucose 177 H POC Glucose 200 H Hemoglobin A1c Lactic Acid Calcium Phosphorus Magnesium Total Bilirubin Direct Bilirubin AST Total Creatine Kinase CK-MB (CK-2) C-Reactive Protein Total Protein Albumin TSH Free T4 04/22/18 04/22/18 04/23/18 12:15 18:04 04:55 WBC Hgb Hct MCHC RDW Plt Count Lymph % (Auto) [place] % (Auto) Lymph # [place] # Seg Neutrophils % Seg Neutrophils # POC ABG pH POC ABG pCO2 POC ABG pO2 Sodium Potassium Chloride Carbon Dioxide BUN 23 H Glucose 274 H POC Glucose 189 H 191 H Hemoglobin A1c Lactic Acid Calcium Phosphorus Magnesium Total Bilirubin Direct Bilirubin AST Total Creatine Kinase CK-MB (CK-2) C-Reactive Protein Total Protein Albumin TSH Free T4 04/23/18 04/23/18 04/23/18 05:21 11:06 17:46 WBC Hgb Hct MCHC RDW Plt Count Lymph % (Auto) [place] % (Auto) Lymph # [place] # Seg Neutrophils % Seg Neutrophils # POC ABG pH POC ABG pCO2 POC ABG pO2 Sodium Potassium Chloride Carbon Dioxide BUN Glucose POC Glucose 143 H 176 H 142 H Hemoglobin A1c Lactic Acid Calcium Phosphorus Magnesium Total Bilirubin Direct Bilirubin AST Total Creatine Kinase CK-MB (CK-2) C-Reactive Protein Total Protein Albumin TSH Free T4 04/23/18 04/24/18 04/24/18 23:35 06:02 11:37 WBC Hgb Hct MCHC RDW Plt Count Lymph % (Auto) [place] % (Auto) Lymph # [place] # Seg Neutrophils % Seg Neutrophils # POC ABG pH POC ABG pCO2 POC ABG pO2 Sodium Potassium Chloride Carbon Dioxide BUN Glucose POC Glucose 127 H 175 H 188 H Hemoglobin A1c Lactic Acid Calcium Phosphorus Magnesium Total Bilirubin Direct Bilirubin AST Total Creatine Kinase CK-MB (CK-2) C-Reactive Protein Total Protein Albumin TSH Free T4 04/24/18 04/24/18 04/24/18 16:50 18:40 20:23 WBC Hgb Hct MCHC RDW Plt Count Lymph % (Auto) [place] % (Auto) Lymph # [place] # Seg Neutrophils % Seg Neutrophils # POC ABG pH POC ABG pCO2 POC ABG pO2 Sodium Potassium Chloride Carbon Dioxide BUN Glucose POC Glucose 134 H 148 H Hemoglobin A1c Lactic Acid Calcium Phosphorus Magnesium Total Bilirubin Direct Bilirubin AST Total Creatine Kinase CK-MB (CK-2) C-Reactive Protein Total Protein Albumin TSH 47.760 H Free T4 0.10 L 04/24/18 04/25/18 04/25/18 23:14 05:22 05:22 WBC Hgb Hct MCHC 35 H RDW 15.4 H Plt Count Lymph % (Auto) [place] % (Auto) Lymph # [place] # Seg Neutrophils % Seg Neutrophils # POC ABG pH POC ABG pCO2 POC ABG pO2 Sodium 136 L Potassium Chloride 95.0 L Carbon Dioxide BUN Glucose 210 H POC Glucose 145 H Hemoglobin A1c Lactic Acid Calcium Phosphorus Magnesium Total Bilirubin Direct Bilirubin AST Total Creatine Kinase CK-MB (CK-2) C-Reactive Protein Total Protein Albumin TSH Free T4 04/25/18 04/25/18 04/25/18 05:44 12:19 13:06 WBC Hgb Hct MCHC RDW Plt Count Lymph % (Auto) [place] % (Auto) Lymph # [place] # Seg Neutrophils % Seg Neutrophils # POC ABG pH 7.471 H POC ABG pCO2 POC ABG pO2 115 H Sodium Potassium Chloride Carbon Dioxide BUN Glucose POC Glucose 176 H 231 H Hemoglobin A1c Lactic Acid Calcium Phosphorus Magnesium Total Bilirubin Direct Bilirubin AST Total Creatine Kinase CK-MB (CK-2) C-Reactive Protein Total Protein Albumin TSH Free T4 04/25/18 04/25/18 04/26/18 17:54 20:09 00:01 WBC Hgb Hct MCHC RDW Plt Count Lymph % (Auto) [place] % (Auto) Lymph # [place] # Seg Neutrophils % Seg Neutrophils # POC ABG pH POC ABG pCO2 POC ABG pO2 Sodium Potassium Chloride Carbon Dioxide BUN Glucose POC Glucose 196 H 119 H 174 H Hemoglobin A1c Lactic Acid Calcium Phosphorus Magnesium Total Bilirubin Direct Bilirubin AST Total Creatine Kinase CK-MB (CK-2) C-Reactive Protein Total Protein Albumin TSH Free T4 04/26/18 04/26/18 04/26/18 05:10 12:03 15:20 WBC Hgb Hct MCHC RDW Plt Count Lymph % (Auto) [place] % (Auto) Lymph # [place] # Seg Neutrophils % Seg Neutrophils # POC ABG pH POC ABG pCO2 POC ABG pO2 Sodium Potassium Chloride Carbon Dioxide BUN Glucose POC Glucose 212 H 222 H 113 H Hemoglobin A1c Lactic Acid Calcium Phosphorus Magnesium Total Bilirubin Direct Bilirubin AST Total Creatine Kinase CK-MB (CK-2) C-Reactive Protein Total Protein Albumin TSH Free T4 04/26/18 04/26/18 04/27/18 18:08 23:39 05:10 WBC Hgb Hct MCHC RDW Plt Count Lymph % (Auto) [place] % (Auto) Lymph # [place] # Seg Neutrophils % Seg Neutrophils # POC ABG pH POC ABG pCO2 POC ABG pO2 Sodium Potassium Chloride Carbon Dioxide BUN Glucose POC Glucose 110 H 165 H 137 H Hemoglobin A1c Lactic Acid Calcium Phosphorus Magnesium Total Bilirubin Direct Bilirubin AST Total Creatine Kinase CK-MB (CK-2) C-Reactive Protein Total Protein Albumin TSH Free T4 04/27/18 04/27/18 04/27/18 10:04 11:23 17:36 WBC Hgb Hct MCHC RDW Plt Count Lymph % (Auto) [place] % (Auto) Lymph # [place] # Seg Neutrophils % Seg Neutrophils # POC ABG pH POC ABG pCO2 POC ABG pO2 Sodium Potassium Chloride Carbon Dioxide BUN Glucose POC Glucose 190 H 258 H 198 H Hemoglobin A1c Lactic Acid Calcium Phosphorus Magnesium Total Bilirubin Direct Bilirubin AST Total Creatine Kinase CK-MB (CK-2) C-Reactive Protein Total Protein Albumin TSH Free T4 04/27/18 04/28/18 04/28/18 23:23 05:19 13:06 WBC Hgb Hct MCHC RDW Plt Count Lymph % (Auto) [place] % (Auto) Lymph # [place] # Seg Neutrophils % Seg Neutrophils # POC ABG pH POC ABG pCO2 POC ABG pO2 Sodium Potassium Chloride Carbon Dioxide BUN Glucose POC Glucose 131 H 178 H 194 H Hemoglobin A1c Lactic Acid Calcium Phosphorus Magnesium Total Bilirubin Direct Bilirubin AST Total Creatine Kinase CK-MB (CK-2) C-Reactive Protein Total Protein Albumin TSH Free T4 04/28/18 04/29/18 04/29/18 16:59 00:24 13:29 WBC Hgb Hct 34.8 L MCHC RDW Plt Count Lymph % (Auto) [place] % (Auto) 9.8 H Lymph # [place] # Seg Neutrophils % Seg Neutrophils # POC ABG pH POC ABG pCO2 POC ABG pO2 Sodium Potassium Chloride Carbon Dioxide BUN Glucose POC Glucose 155 H 166 H Hemoglobin A1c Lactic Acid Calcium Phosphorus Magnesium Total Bilirubin Direct Bilirubin AST Total Creatine Kinase CK-MB (CK-2) C-Reactive Protein Total Protein Albumin TSH Free T4 04/29/18 05/01/18 13:29 15:05 WBC 13.3 H Hgb 11.3 L Hct 33.1 L MCHC RDW Plt Count Lymph % (Auto) 9.8 L [place] % (Auto) 7.7 H Lymph # [place] # 1.0 H Seg Neutrophils % 81.9 H Seg Neutrophils # 10.9 H POC ABG pH POC ABG pCO2 POC ABG pO2 Sodium 135 L Potassium Chloride Carbon Dioxide BUN Glucose 214 H POC Glucose Hemoglobin A1c Lactic Acid Calcium Phosphorus Magnesium Total Bilirubin Direct Bilirubin AST Total Creatine Kinase CK-MB (CK-2) C-Reactive Protein Total Protein Albumin TSH Free T4
[2018-05-01] MEDS: TYLENOL PO PRN (18:17)
[2018-05-01] MEDS: MIRALAX 3350 PO SCH (21:17)
[2018-05-02 05:48] LABS: Hematocrit 32.8 % (35.5-45.6); Hemoglobin 10.9 gm/dl (11.8-15.2); Mean Corpuscular HGB Conc 33 % (32-34); Mean Corpuscular Volume 90 fl (84-94); Platelet Count 236 K/mm3 (140-440); Red Blood Count 3.65 M/mm3 (3.65-5.03); Red Cell Distribution Width 15.5 % (13.2-15.2)
[2018-05-02 06:01] LABS: BUN/Creatinine Ratio 15; Blood Urea Nitrogen 12 mg/dL (9-20); Calcium 8.4 mg/dL (8.4-10.2); Hemolysis Index 7
[2018-05-02] MEDS: SYNTHROID PO SCH (06:15)
[2018-05-02] MEDS: APRESOLINE PO SCH ×3 (06:15→21:14)
[2018-05-02] MEDS: HumaLOG SUB-Q SCH ×3 (06:16→18:13)
[2018-05-02] MEDS: HumuLIN R SUB-Q SCH ×3 (09:15→21:18)
--- NOTE | 2018-05-02 09:39 | Progress Note ---
Assessment and Plan Acute Hypoxemic Respiratory Failure on MVS s/p trachesotomy s/p PEG New Onset Seizures (presumed secondary to Hypoglycemia) Acute Encephalopathy (Toxic -Metabolic) Hypoxic ischemic encephalopathy Diabetes Type II, hypoglycemia Rhabdomyolysis Obesity HTN Possible JOE Leucocytosis h/o Alcohol use disorder Medical decision making --Started on empiric antibiotics, blood cultures negative to date. -Get urinalysis and urine culture, get CXR. Fevers could be post procedural. Discontinue ceftriaxone, the patient has been in the hospital for several weeks. Start antibiotics to cover MRSA and GNR. If cultures are negative, will deescalate therapy. -Blood pressure control -Secretion management -Avoid delirium, maintain sleep-wake cycle. -Start daily SBT trials, as tolerated. In tim next 24 hours start ATP trials All other care as outlined below. -VAP bundle addressed -Anti-seizure medications -Analgesia and agitation management. -VTE and stress ulcer prophylaxis -AEDs (Keppra) -Enteric nutrition with glycemic control -Target blood glucose level 140-180mg/dL -Avoid hypoglycemia -Critical care bundles addressed -Aspiration precautions - Wean supplemental oxygen to keep O2 sats > 90% -Lung protective strategies - Bronchodilators per protocol - Daily SAT's and SBT - Replace electrolytes as indicated Discussed with RT and RN CONDITION: CRITICAL PROGNOSIS: GUARDED CODE STATUS: FULL CODE The high probability of a clinically significant, sudden or life-threatening deterioration of the [respiratory, renal, endocrine, neurology] system(s) required my full and direct attention, intervention and personal management. The aggregate critical care time was [31] minutes without overlap. Time includes spent on; [x] Data Review and interpretation [x] Patient assessment and monitoring of vital signs [x] Documentation [x] Medication orders and management Subjective Date of service: 05/02/18 Principal diagnosis: Ac Hypoxemic Resp Failure; Seizures; Encephalopathy; DM II; Rhabdomyolysis Interval history: Patient is seen today for: Acute Hypoxemic Respiratory Failure; New Onset Seizures (presumed secondary to Hypoglycemia); Acute Encephalopathy (Toxic - Metabolic); Diabetes Type II; Rhabdomyolysis Seen and examined at bedside; 24hour events reviewed; nursing and respiratory care staff consulted; no adverse overnight events reported to me; resting peacefully in bed; remains encephalopathic, Remains on MVS s/p trach and PEG, low grade fevers documented overnight.No episodes of vomiting, tolerating tube feeding. Objective Vital Signs - 12hr 05/01/18 05/01/18 05/01/18 21:46 22:00 22:16 Temperature Pulse Rate 77 71 81 Pulse Rate [ From Monitor] Respiratory 22 19 16 Rate Blood Pressure 132/63 113/55 113/55 O2 Sat by Pulse 100 100 100 Oximetry O2 Sat by Pulse Oximetry [ Assessment] 05/01/18 05/01/18 05/01/18 22:30 22:45 23:01 Temperature Pulse Rate 77 75 78 Pulse Rate [ From Monitor] Respiratory 23 22 22 Rate Blood Pressure 130/55 130/55 124/57 O2 Sat by Pulse 100 100 100 Oximetry O2 Sat by Pulse Oximetry [ Assessment] 05/01/18 05/01/18 05/01/18 23:15 23:31 23:45 Temperature Pulse Rate 74 83 75 Pulse Rate [ From Monitor] Respiratory 15 14 19 Rate Blood Pressure 130/55 130/55 124/57 O2 Sat by Pulse 100 100 100 Oximetry O2 Sat by Pulse Oximetry [ Assessment] 05/01/18 05/02/18 05/02/18 23:50 00:00 00:15 Temperature 99.6 F Pulse Rate 73 77 73 Pulse Rate [ 70 From Monitor] Respiratory 16 14 Rate Blood Pressure 132/63 132/63 132/63 O2 Sat by Pulse 100 100 100 Oximetry O2 Sat by Pulse 100 Oximetry [ Assessment] 05/02/18 05/02/18 05/02/18 00:31 00:45 01:01 Temperature Pulse Rate 69 83 Pulse Rate [ From Monitor] Respiratory 13 17 Rate Blood Pressure 121/55 133/60 133/60 O2 Sat by Pulse 100 100 100 Oximetry O2 Sat by Pulse Oximetry [ Assessment] 05/02/18 05/02/18 05/02/18 01:15 01:31 01:45 Temperature Pulse Rate 77 81 73 Pulse Rate [ From Monitor] Respiratory 22 16 17 Rate Blood Pressure 121/55 121/55 121/55 O2 Sat by Pulse 99 97 98 Oximetry O2 Sat by Pulse Oximetry [ Assessment] 05/02/18 05/02/18 05/02/18 02:01 02:15 02:31 Temperature Pulse Rate 76 77 74 Pulse Rate [ From Monitor] Respiratory 22 21 15 Rate Blood Pressure 121/55 124/54 118/56 O2 Sat by Pulse 98 98 99 Oximetry O2 Sat by Pulse Oximetry [ Assessment] 05/02/18 05/02/18 05/02/18 02:45 03:01 03:15 Temperature Pulse Rate 77 78 70 Pulse Rate [ From Monitor] Respiratory 17 22 13 Rate Blood Pressure 118/56 129/61 129/61 O2 Sat by Pulse 99 100 99 Oximetry O2 Sat by Pulse Oximetry [ Assessment] 05/02/18 05/02/18 05/02/18 03:31 03:45 03:51 Temperature Pulse Rate 71 70 75 Pulse Rate [ From Monitor] Respiratory 13 14 Rate Blood Pressure 120/42 120/42 120/42 O2 Sat by Pulse 99 98 100 Oximetry O2 Sat by Pulse Oximetry [ Assessment] 05/02/18 05/02/18 05/02/18 04:00 04:01 04:15 Temperature 100.8 F H Pulse Rate 75 72 71 Pulse Rate [ 75 From Monitor] Respiratory 21 16 13 Rate Blood Pressure 128/45 128/45 O2 Sat by Pulse 99 100 99 Oximetry O2 Sat by Pulse Oximetry [ Assessment] 05/02/18 05/02/18 05/02/18 04:31 04:45 05:01 Temperature Pulse Rate 70 83 80 Pulse Rate [ From Monitor] Respiratory 12 15 18 Rate Blood Pressure 127/41 127/41 128/45 O2 Sat by Pulse 100 99 99 Oximetry O2 Sat by Pulse Oximetry [ Assessment] 05/02/18 05/02/18 05/02/18 05:15 05:31 05:45 Temperature Pulse Rate 84 67 75 Pulse Rate [ From Monitor] Respiratory 20 13 13 Rate Blood Pressure 128/42 135/37 135/37 O2 Sat by Pulse 99 100 99 Oximetry O2 Sat by Pulse Oximetry [ Assessment] 05/02/18 05/02/18 05/02/18 06:01 06:15 06:31 Temperature Pulse Rate 87 70 83 Pulse Rate [ From Monitor] Respiratory 17 12 16 Rate Blood Pressure 122/64 122/64 135/37 O2 Sat by Pulse 98 99 99 Oximetry O2 Sat by Pulse Oximetry [ Assessment] 05/02/18 05/02/18 05/02/18 06:45 07:01 07:15 Temperature Pulse Rate 71 70 85 Pulse Rate [ From Monitor] Respiratory 17 15 21 Rate Blood Pressure 135/37 119/54 119/54 O2 Sat by Pulse 100 99 100 Oximetry O2 Sat by Pulse Oximetry [ Assessment] 05/02/18 05/02/18 05/02/18 07:31 07:45 08:00 Temperature 99.9 F H Pulse Rate 74 72 79 Pulse Rate [ From Monitor] Respiratory 14 14 Rate Blood Pressure 123/54 123/54 O2 Sat by Pulse 99 99 Oximetry O2 Sat by Pulse Oximetry [ Assessment] 05/02/18 05/02/18 05/02/18 08:01 08:15 08:21 Temperature Pulse Rate 79 67 71 Pulse Rate [ From Monitor] Respiratory 16 15 Rate Blood Pressure 134/64 134/64 134/64 O2 Sat by Pulse 100 100 100 Oximetry O2 Sat by Pulse 100 Oximetry [ Assessment] 05/02/18 05/02/18 05/02/18 08:31 08:33 08:45 Temperature Pulse Rate 79 76 79 Pulse Rate [ From Monitor] Respiratory 15 25 H Rate Blood Pressure 134/64 134/64 O2 Sat by Pulse 100 99 99 Oximetry O2 Sat by Pulse Oximetry [ Assessment] 05/02/18 09:01 Temperature Pulse Rate 69 Pulse Rate [ From Monitor] Respiratory 19 Rate Blood Pressure 134/64 O2 Sat by Pulse 100 Oximetry O2 Sat by Pulse Oximetry [ Assessment] Constitutional: no acute distress, other (Elderly looking AAM, normocephalic and atraumatic with mildly increased respiratory effort on MVS) Eyes: non-icteric ENT: oropharynx moist, other (s/p tracheostomy) Neck: supple, no lymphadenopathy, no JVD, other (large neck circumference) Effort: mildly labored Ascultation: Bilateral: diminished breath sounds, rhonchi Percussion: Bilateral: not dull Cardiovascular: regular rate and rhythm Gastrointestinal: normoactive bowel sounds, soft, non-tender, non-distended, other (protuberant) Integumentary: normal Extremities: no cyanosis, no edema, pulses normal, no ischemia or petechiae Neurologic: non-focal exam (grossly), unable to assess, other (opens eyes spontaneously, not following my prompts) Psychiatric: other (unable to assess) CBC and BMP: 05/02/18 04:56 05/02/18 04:56 ABG, PT/INR, D-dimer: ABG POC ABG pH 7.471 (7.35-7.45) H 04/25/18 13:06 POC ABG pCO2 43.5 (35-45) 04/25/18 13:06 POC ABG pO2 115 (80-105) H 04/25/18 13:06 POC ABG HCO3 31.7 04/25/18 13:06 POC ABG Total CO2 33 04/25/18 13:06 POC ABG O2 Sat 99 04/25/18 13:06 PT/INR, D-dimer PT 13.8 Sec. (12.2-14.9) 04/29/18 21:03 INR 1.00 (0.87-1.13) 04/29/18 21:03 Abnormal lab findings: Abnormal Labs 04/09/18 04/09/18 04/09/18 23:16 23:16 23:16 WBC 13.6 H Hgb Hct MCHC RDW Plt Count Lymph % (Auto) 9.4 L [place] % (Auto) Lymph # [place] # Seg Neutrophils % 87.3 H Seg Neutrophils # 11.9 H POC ABG pH POC ABG pCO2 POC ABG pO2 Sodium 132 L Potassium Chloride 92.7 L Carbon Dioxide BUN Glucose 143 H POC Glucose Hemoglobin A1c Lactic Acid 2.10 H* Calcium Phosphorus Magnesium Total Bilirubin 2.20 H Direct Bilirubin AST 107 H Total Creatine Kinase CK-MB (CK-2) C-Reactive Protein Total Protein Albumin TSH Free T4 04/10/18 04/10/18 04/10/18 00:38 00:55 01:13 WBC Hgb Hct MCHC RDW Plt Count Lymph % (Auto) [place] % (Auto) Lymph # [place] # Seg Neutrophils % Seg Neutrophils # POC ABG pH POC ABG pCO2 POC ABG pO2 Sodium Potassium Chloride Carbon Dioxide BUN Glucose POC Glucose 117 H 121 H Hemoglobin A1c Lactic Acid 2.10 H* Calcium Phosphorus Magnesium Total Bilirubin Direct Bilirubin AST Total Creatine Kinase CK-MB (CK-2) C-Reactive Protein Total Protein Albumin TSH Free T4 04/10/18 04/10/18 04/10/18 02:10 03:51 04:07 WBC 14.0 H Hgb Hct MCHC RDW Plt Count Lymph % (Auto) 7.5 L [place] % (Auto) Lymph # 1.1 L [place] # 1.0 H Seg Neutrophils % 84.9 H Seg Neutrophils # 11.8 H POC ABG pH POC ABG pCO2 POC ABG pO2 Sodium Potassium Chloride Carbon Dioxide BUN Glucose POC Glucose 153 H 158 H Hemoglobin A1c Lactic Acid Calcium Phosphorus Magnesium Total Bilirubin Direct Bilirubin AST Total Creatine Kinase CK-MB (CK-2) C-Reactive Protein Total Protein Albumin TSH Free T4 04/10/18 04/10/18 04/10/18 04:07 06:56 09:48 WBC Hgb Hct MCHC RDW Plt Count Lymph % (Auto) [place] % (Auto) Lymph # [place] # Seg Neutrophils % Seg Neutrophils # POC ABG pH POC ABG pCO2 POC ABG pO2 Sodium 130 L Potassium Chloride 93.4 L Carbon Dioxide BUN Glucose 180 H POC Glucose 251 H 245 H Hemoglobin A1c Lactic Acid Calcium 7.9 L D Phosphorus Magnesium Total Bilirubin Direct Bilirubin AST Total Creatine Kinase 7857 H CK-MB (CK-2) 34.3 H C-Reactive Protein Total Protein Albumin TSH Free T4 04/10/18 04/10/18 04/10/18 10:37 12:44 17:31 WBC Hgb Hct MCHC RDW Plt Count Lymph % (Auto) [place] % (Auto) Lymph # [place] # Seg Neutrophils % Seg Neutrophils # POC ABG pH POC ABG pCO2 45.6 H POC ABG pO2 374 H Sodium Potassium Chloride Carbon Dioxide BUN Glucose POC Glucose 348 H Hemoglobin A1c Lactic Acid Calcium Phosphorus Magnesium Total Bilirubin Direct Bilirubin AST Total Creatine Kinase 9880 H CK-MB (CK-2) 30.0 H C-Reactive Protein Total Protein Albumin TSH Free T4 04/10/18 04/11/18 04/11/18 23:36 03:52 04:28 WBC 12.2 H Hgb Hct MCHC RDW Plt Count 132 L Lymph % (Auto) [place] % (Auto) 10.2 H Lymph # [place] # 1.2 H Seg Neutrophils % 75.1 H Seg Neutrophils # 9.1 H POC ABG pH 7.495 H POC ABG pCO2 32.4 L POC ABG pO2 Sodium Potassium Chloride Carbon Dioxide BUN Glucose POC Glucose 148 H Hemoglobin A1c Lactic Acid Calcium Phosphorus Magnesium Total Bilirubin Direct Bilirubin AST Total Creatine Kinase CK-MB (CK-2) C-Reactive Protein Total Protein Albumin TSH Free T4 04/11/18 04/11/18 04/11/18 04:28 04:28 05:22 WBC Hgb Hct MCHC RDW Plt Count Lymph % (Auto) [place] % (Auto) Lymph # [place] # Seg Neutrophils % Seg Neutrophils # POC ABG pH POC ABG pCO2 POC ABG pO2 Sodium 133 L Potassium 3.5 L Chloride 95.1 L Carbon Dioxide BUN 7 L Glucose 206 H POC Glucose 178 H Hemoglobin A1c 6.4 H Lactic Acid Calcium 7.7 L Phosphorus 1.80 L Magnesium 1.50 L Total Bilirubin 4.10 H Direct Bilirubin AST 168 H Total Creatine Kinase 9352 H CK-MB (CK-2) C-Reactive Protein Total Protein Albumin 3.4 L TSH Free T4 04/11/18 04/11/18 04/11/18 11:28 13:43 17:30 WBC Hgb Hct MCHC RDW Plt Count Lymph % (Auto) [place] % (Auto) Lymph # [place] # Seg Neutrophils % Seg Neutrophils # POC ABG pH POC ABG pCO2 POC ABG pO2 Sodium Potassium Chloride Carbon Dioxide BUN Glucose POC Glucose 196 H 142 H Hemoglobin A1c Lactic Acid Calcium Phosphorus Magnesium Total Bilirubin Direct Bilirubin AST Total Creatine Kinase CK-MB (CK-2) C-Reactive Protein 7.20 H Total Protein Albumin TSH Free T4 04/11/18 04/11/18 04/12/18 18:59 23:23 04:00 WBC Hgb Hct MCHC RDW Plt Count Lymph % (Auto) [place] % (Auto) Lymph # [place] # Seg Neutrophils % Seg Neutrophils # POC ABG pH 7.489 H POC ABG pCO2 34.5 L POC ABG pO2 Sodium Potassium 3.3 L Chloride Carbon Dioxide BUN 6 L Glucose 151 H POC Glucose 129 H Hemoglobin A1c Lactic Acid Calcium 7.3 L Phosphorus 2.00 L Magnesium Total Bilirubin 2.80 H Direct Bilirubin AST 121 H Total Creatine Kinase 5177 H CK-MB (CK-2) C-Reactive Protein Total Protein 5.9 L Albumin 3.1 L TSH Free T4 04/12/18 04/12/18 04/12/18 04:00 04:04 05:21 WBC Hgb Hct 34.9 L MCHC 35 H RDW Plt Count 128 L Lymph % (Auto) [place] % (Auto) 10.6 H Lymph # [place] # 0.9 H Seg Neutrophils % Seg Neutrophils # POC ABG pH 7.454 H POC ABG pCO2 POC ABG pO2 Sodium Potassium Chloride Carbon Dioxide BUN Glucose POC Glucose 136 H Hemoglobin A1c Lactic Acid Calcium Phosphorus Magnesium Total Bilirubin Direct Bilirubin AST Total Creatine Kinase CK-MB (CK-2) C-Reactive Protein Total Protein Albumin TSH Free T4 04/12/18 04/13/18 04/13/18 11:23 00:21 04:57 WBC Hgb Hct MCHC RDW Plt Count Lymph % (Auto) [place] % (Auto) Lymph # [place] # Seg Neutrophils % Seg Neutrophils # POC ABG pH POC ABG pCO2 34.7 L POC ABG pO2 125 H Sodium Potassium Chloride Carbon Dioxide BUN Glucose POC Glucose 166 H 143 H Hemoglobin A1c Lactic Acid Calcium Phosphorus Magnesium Total Bilirubin Direct Bilirubin AST Total Creatine Kinase CK-MB (CK-2) C-Reactive Protein Total Protein Albumin TSH Free T4 04/13/18 04/13/18 04/13/18 05:02 05:02 12:16 WBC Hgb Hct MCHC RDW Plt Count Lymph % (Auto) [place] % (Auto) Lymph # [place] # Seg Neutrophils % Seg Neutrophils # POC ABG pH POC ABG pCO2 POC ABG pO2 Sodium Potassium Chloride Carbon Dioxide BUN Glucose POC Glucose 161 H 170 H Hemoglobin A1c Lactic Acid Calcium Phosphorus Magnesium Total Bilirubin Direct Bilirubin AST Total Creatine Kinase 3456 H CK-MB (CK-2) C-Reactive Protein Total Protein Albumin TSH Free T4 04/13/18 04/13/18 04/14/18 18:52 23:09 04:35 WBC Hgb Hct MCHC RDW Plt Count Lymph % (Auto) [place] % (Auto) Lymph # [place] # Seg Neutrophils % Seg Neutrophils # POC ABG pH 7.467 H POC ABG pCO2 POC ABG pO2 Sodium Potassium Chloride Carbon Dioxide BUN Glucose POC Glucose 196 H 219 H Hemoglobin A1c Lactic Acid Calcium Phosphorus Magnesium Total Bilirubin Direct Bilirubin AST Total Creatine Kinase CK-MB (CK-2) C-Reactive Protein Total Protein Albumin TSH Free T4 04/14/18 04/14/18 04/14/18 05:00 05:26 11:20 WBC Hgb Hct MCHC RDW Plt Count Lymph % (Auto) [place] % (Auto) Lymph # [place] # Seg Neutrophils % Seg Neutrophils # POC ABG pH POC ABG pCO2 POC ABG pO2 Sodium Potassium Chloride Carbon Dioxide BUN Glucose POC Glucose 249 H 260 H Hemoglobin A1c Lactic Acid Calcium Phosphorus Magnesium Total Bilirubin Direct Bilirubin AST Total Creatine Kinase 2247 H CK-MB (CK-2) C-Reactive Protein Total Protein Albumin TSH Free T4 04/14/18 04/14/18 04/14/18 17:04 17:51 23:53 WBC Hgb Hct MCHC RDW Plt Count Lymph % (Auto) [place] % (Auto) Lymph # [place] # Seg Neutrophils % Seg Neutrophils # POC ABG pH POC ABG pCO2 POC ABG pO2 79 L Sodium Potassium Chloride Carbon Dioxide BUN Glucose POC Glucose 284 H 203 H Hemoglobin A1c Lactic Acid Calcium Phosphorus Magnesium Total Bilirubin Direct Bilirubin AST Total Creatine Kinase CK-MB (CK-2) C-Reactive Protein Total Protein Albumin TSH Free T4 04/15/18 04/15/18 04/15/18 04:24 05:26 12:56 WBC Hgb Hct MCHC RDW Plt Count Lymph % (Auto) [place] % (Auto) Lymph # [place] # Seg Neutrophils % Seg Neutrophils # POC ABG pH POC ABG pCO2 45.4 H POC ABG pO2 78 L Sodium Potassium Chloride Carbon Dioxide BUN Glucose POC Glucose 194 H 200 H Hemoglobin A1c Lactic Acid Calcium Phosphorus Magnesium Total Bilirubin Direct Bilirubin AST Total Creatine Kinase CK-MB (CK-2) C-Reactive Protein Total Protein Albumin TSH Free T4 04/15/18 04/15/18 04/16/18 17:46 23:57 05:08 WBC Hgb Hct MCHC RDW Plt Count Lymph % (Auto) [place] % (Auto) Lymph # [place] # Seg Neutrophils % Seg Neutrophils # POC ABG pH POC ABG pCO2 POC ABG pO2 Sodium Potassium Chloride Carbon Dioxide BUN Glucose POC Glucose 118 H 204 H 221 H Hemoglobin A1c Lactic Acid Calcium Phosphorus Magnesium Total Bilirubin Direct Bilirubin AST Total Creatine Kinase CK-MB (CK-2) C-Reactive Protein Total Protein Albumin TSH Free T4 04/16/18 04/16/18 04/16/18 05:16 12:23 13:07 WBC Hgb Hct MCHC RDW Plt Count Lymph % (Auto) [place] % (Auto) Lymph # [place] # Seg Neutrophils % Seg Neutrophils # POC ABG pH 7.456 H POC ABG pCO2 46.7 H POC ABG pO2 Sodium Potassium Chloride Carbon Dioxide BUN Glucose POC Glucose 271 H Hemoglobin A1c Lactic Acid Calcium Phosphorus Magnesium Total Bilirubin Direct Bilirubin AST Total Creatine Kinase CK-MB (CK-2) C-Reactive Protein Total Protein Albumin TSH Free T4 04/16/18 04/17/18 04/17/18 19:14 00:08 05:46 WBC Hgb Hct MCHC RDW Plt Count Lymph % (Auto) [place] % (Auto) Lymph # [place] # Seg Neutrophils % Seg Neutrophils # POC ABG pH POC ABG pCO2 POC ABG pO2 Sodium Potassium Chloride Carbon Dioxide BUN Glucose POC Glucose 221 H 238 H 274 H Hemoglobin A1c Lactic Acid Calcium Phosphorus Magnesium Total Bilirubin Direct Bilirubin AST Total Creatine Kinase CK-MB (CK-2) C-Reactive Protein Total Protein Albumin TSH Free T4 04/17/18 04/17/18 04/17/18 13:50 13:59 14:20 WBC Hgb Hct MCHC RDW Plt Count Lymph % (Auto) [place] % (Auto) Lymph # [place] # Seg Neutrophils % Seg Neutrophils # POC ABG pH 7.474 H POC ABG pCO2 POC ABG pO2 Sodium Potassium 3.4 L Chloride 93.6 L Carbon Dioxide 33 H BUN Glucose 305 H POC Glucose 315 H Hemoglobin A1c Lactic Acid Calcium Phosphorus Magnesium Total Bilirubin Direct Bilirubin AST Total Creatine Kinase CK-MB (CK-2) C-Reactive Protein Total Protein Albumin TSH Free T4 04/17/18 04/17/18 04/18/18 17:04 23:26 04:20 WBC Hgb Hct MCHC RDW Plt Count Lymph % (Auto) [place] % (Auto) Lymph # [place] # Seg Neutrophils % Seg Neutrophils # POC ABG pH 7.473 H POC ABG pCO2 POC ABG pO2 Sodium Potassium Chloride Carbon Dioxide BUN Glucose POC Glucose 280 H 284 H Hemoglobin A1c Lactic Acid Calcium Phosphorus Magnesium Total Bilirubin Direct Bilirubin AST Total Creatine Kinase CK-MB (CK-2) C-Reactive Protein Total Protein Albumin TSH Free T4 04/18/18 04/18/18 04/18/18 05:14 08:32 11:00 WBC Hgb Hct MCHC RDW Plt Count Lymph % (Auto) [place] % (Auto) Lymph # [place] # Seg Neutrophils % Seg Neutrophils # POC ABG pH POC ABG pCO2 POC ABG pO2 Sodium Potassium Chloride Carbon Dioxide BUN Glucose POC Glucose 286 H 296 H Hemoglobin A1c Lactic Acid Calcium Phosphorus Magnesium Total Bilirubin Direct Bilirubin 0.3 H AST 87 H Total Creatine Kinase CK-MB (CK-2) C-Reactive Protein Total Protein Albumin 3.7 L TSH Free T4 04/18/18 04/18/18 04/19/18 12:03 18:15 00:08 WBC Hgb Hct MCHC RDW Plt Count Lymph % (Auto) [place] % (Auto) Lymph # [place] # Seg Neutrophils % Seg Neutrophils # POC ABG pH POC ABG pCO2 POC ABG pO2 Sodium Potassium Chloride Carbon Dioxide BUN Glucose POC Glucose 353 H 327 H 331 H Hemoglobin A1c Lactic Acid Calcium Phosphorus Magnesium Total Bilirubin Direct Bilirubin AST Total Creatine Kinase CK-MB (CK-2) C-Reactive Protein Total Protein Albumin TSH Free T4 04/19/18 04/19/18 04/19/18 04:46 05:26 11:48 WBC Hgb Hct MCHC RDW Plt Count Lymph % (Auto) [place] % (Auto) Lymph # [place] # Seg Neutrophils % Seg Neutrophils # POC ABG pH 7.497 H POC ABG pCO2 POC ABG pO2 119 H Sodium Potassium Chloride Carbon Dioxide BUN Glucose POC Glucose 323 H 266 H Hemoglobin A1c Lactic Acid Calcium Phosphorus Magnesium Total Bilirubin Direct Bilirubin AST Total Creatine Kinase CK-MB (CK-2) C-Reactive Protein Total Protein Albumin TSH Free T4 04/19/18 04/19/18 04/20/18 17:52 23:37 00:07 WBC Hgb Hct MCHC RDW Plt Count Lymph % (Auto) [place] % (Auto) Lymph # [place] # Seg Neutrophils % Seg Neutrophils # POC ABG pH POC ABG pCO2 POC ABG pO2 Sodium Potassium Chloride Carbon Dioxide BUN Glucose POC Glucose 284 H 285 H 312 H Hemoglobin A1c Lactic Acid Calcium Phosphorus Magnesium Total Bilirubin Direct Bilirubin AST Total Creatine Kinase CK-MB (CK-2) C-Reactive Protein Total Protein Albumin TSH Free T4 04/20/18 04/20/18 04/20/18 04:09 04:09 04:37 WBC Hgb Hct 34.7 L MCHC 35 H RDW Plt Count Lymph % (Auto) [place] % (Auto) Lymph # [place] # Seg Neutrophils % Seg Neutrophils # POC ABG pH POC ABG pCO2 POC ABG pO2 Sodium Potassium 3.5 L Chloride 95.7 L Carbon Dioxide 34 H BUN Glucose 286 H POC Glucose 267 H Hemoglobin A1c Lactic Acid Calcium Phosphorus Magnesium Total Bilirubin Direct Bilirubin AST Total Creatine Kinase CK-MB (CK-2) C-Reactive Protein Total Protein Albumin TSH Free T4 04/20/18 04/20/18 04/20/18 12:32 17:54 21:07 WBC Hgb Hct MCHC RDW Plt Count Lymph % (Auto) [place] % (Auto) Lymph # [place] # Seg Neutrophils % Seg Neutrophils # POC ABG pH POC ABG pCO2 POC ABG pO2 Sodium Potassium Chloride Carbon Dioxide BUN Glucose POC Glucose 220 H 298 H 187 H Hemoglobin A1c Lactic Acid Calcium Phosphorus Magnesium Total Bilirubin Direct Bilirubin AST Total Creatine Kinase CK-MB (CK-2) C-Reactive Protein Total Protein Albumin TSH Free T4 04/21/18 04/21/18 04/21/18 00:04 05:00 05:41 WBC Hgb Hct MCHC RDW Plt Count Lymph % (Auto) [place] % (Auto) Lymph # [place] # Seg Neutrophils % Seg Neutrophils # POC ABG pH POC ABG pCO2 POC ABG pO2 Sodium Potassium Chloride 95.2 L Carbon Dioxide 34 H BUN Glucose 179 H POC Glucose 183 H 166 H Hemoglobin A1c Lactic Acid Calcium Phosphorus Magnesium Total Bilirubin Direct Bilirubin AST Total Creatine Kinase CK-MB (CK-2) C-Reactive Protein Total Protein Albumin TSH Free T4 04/21/18 04/21/18 04/21/18 11:55 18:09 23:36 WBC Hgb Hct MCHC RDW Plt Count Lymph % (Auto) [place] % (Auto) Lymph # [place] # Seg Neutrophils % Seg Neutrophils # POC ABG pH POC ABG pCO2 POC ABG pO2 Sodium Potassium Chloride Carbon Dioxide BUN Glucose POC Glucose 219 H 247 H 229 H Hemoglobin A1c Lactic Acid Calcium Phosphorus Magnesium Total Bilirubin Direct Bilirubin AST Total Creatine Kinase CK-MB (CK-2) C-Reactive Protein Total Protein Albumin TSH Free T4 04/22/18 04/22/18 04/22/18 04:07 04:07 05:08 WBC Hgb Hct MCHC 35 H RDW 15.3 H Plt Count Lymph % (Auto) [place] % (Auto) Lymph # [place] # Seg Neutrophils % Seg Neutrophils # POC ABG pH POC ABG pCO2 POC ABG pO2 Sodium Potassium Chloride 97.4 L Carbon Dioxide 31 H BUN Glucose 177 H POC Glucose 200 H Hemoglobin A1c Lactic Acid Calcium Phosphorus Magnesium Total Bilirubin Direct Bilirubin AST Total Creatine Kinase CK-MB (CK-2) C-Reactive Protein Total Protein Albumin TSH Free T4 04/22/18 04/22/18 04/23/18 12:15 18:04 04:55 WBC Hgb Hct MCHC RDW Plt Count Lymph % (Auto) [place] % (Auto) Lymph # [place] # Seg Neutrophils % Seg Neutrophils # POC ABG pH POC ABG pCO2 POC ABG pO2 Sodium Potassium Chloride Carbon Dioxide BUN 23 H Glucose 274 H POC Glucose 189 H 191 H Hemoglobin A1c Lactic Acid Calcium Phosphorus Magnesium Total Bilirubin Direct Bilirubin AST Total Creatine Kinase CK-MB (CK-2) C-Reactive Protein Total Protein Albumin TSH Free T4 04/23/18 04/23/18 04/23/18 05:21 11:06 17:46 WBC Hgb Hct MCHC RDW Plt Count Lymph % (Auto) [place] % (Auto) Lymph # [place] # Seg Neutrophils % Seg Neutrophils # POC ABG pH POC ABG pCO2 POC ABG pO2 Sodium Potassium Chloride Carbon Dioxide BUN Glucose POC Glucose 143 H 176 H 142 H Hemoglobin A1c Lactic Acid Calcium Phosphorus Magnesium Total Bilirubin Direct Bilirubin AST Total Creatine Kinase CK-MB (CK-2) C-Reactive Protein Total Protein Albumin TSH Free T4 04/23/18 04/24/18 04/24/18 23:35 06:02 11:37 WBC Hgb Hct MCHC RDW Plt Count Lymph % (Auto) [place] % (Auto) Lymph # [place] # Seg Neutrophils % Seg Neutrophils # POC ABG pH POC ABG pCO2 POC ABG pO2 Sodium Potassium Chloride Carbon Dioxide BUN Glucose POC Glucose 127 H 175 H 188 H Hemoglobin A1c Lactic Acid Calcium Phosphorus Magnesium Total Bilirubin Direct Bilirubin AST Total Creatine Kinase CK-MB (CK-2) C-Reactive Protein Total Protein Albumin TSH Free T4 04/24/18 04/24/18 04/24/18 16:50 18:40 20:23 WBC Hgb Hct MCHC RDW Plt Count Lymph % (Auto) [place] % (Auto) Lymph # [place] # Seg Neutrophils % Seg Neutrophils # POC ABG pH POC ABG pCO2 POC ABG pO2 Sodium Potassium Chloride Carbon Dioxide BUN Glucose POC Glucose 134 H 148 H Hemoglobin A1c Lactic Acid Calcium Phosphorus Magnesium Total Bilirubin Direct Bilirubin AST Total Creatine Kinase CK-MB (CK-2) C-Reactive Protein Total Protein Albumin TSH 47.760 H Free T4 0.10 L 04/24/18 04/25/18 04/25/18 23:14 05:22 05:22 WBC Hgb Hct MCHC 35 H RDW 15.4 H Plt Count Lymph % (Auto) [place] % (Auto) Lymph # [place] # Seg Neutrophils % Seg Neutrophils # POC ABG pH POC ABG pCO2 POC ABG pO2 Sodium 136 L Potassium Chloride 95.0 L Carbon Dioxide BUN Glucose 210 H POC Glucose 145 H Hemoglobin A1c Lactic Acid Calcium Phosphorus Magnesium Total Bilirubin Direct Bilirubin AST Total Creatine Kinase CK-MB (CK-2) C-Reactive Protein Total Protein Albumin TSH Free T4 04/25/18 04/25/18 04/25/18 05:44 12:19 13:06 WBC Hgb Hct MCHC RDW Plt Count Lymph % (Auto) [place] % (Auto) Lymph # [place] # Seg Neutrophils % Seg Neutrophils # POC ABG pH 7.471 H POC ABG pCO2 POC ABG pO2 115 H Sodium Potassium Chloride Carbon Dioxide BUN Glucose POC Glucose 176 H 231 H Hemoglobin A1c Lactic Acid Calcium Phosphorus Magnesium Total Bilirubin Direct Bilirubin AST Total Creatine Kinase CK-MB (CK-2) C-Reactive Protein Total Protein Albumin TSH Free T4 04/25/18 04/25/18 04/26/18 17:54 20:09 00:01 WBC Hgb Hct MCHC RDW Plt Count Lymph % (Auto) [place] % (Auto) Lymph # [place] # Seg Neutrophils % Seg Neutrophils # POC ABG pH POC ABG pCO2 POC ABG pO2 Sodium Potassium Chloride Carbon Dioxide BUN Glucose POC Glucose 196 H 119 H 174 H Hemoglobin A1c Lactic Acid Calcium Phosphorus Magnesium Total Bilirubin Direct Bilirubin AST Total Creatine Kinase CK-MB (CK-2) C-Reactive Protein Total Protein Albumin TSH Free T4 04/26/18 04/26/18 04/26/18 05:10 12:03 15:20 WBC Hgb Hct MCHC RDW Plt Count Lymph % (Auto) [place] % (Auto) Lymph # [place] # Seg Neutrophils % Seg Neutrophils # POC ABG pH POC ABG pCO2 POC ABG pO2 Sodium Potassium Chloride Carbon Dioxide BUN Glucose POC Glucose 212 H 222 H 113 H Hemoglobin A1c Lactic Acid Calcium Phosphorus Magnesium Total Bilirubin Direct Bilirubin AST Total Creatine Kinase CK-MB (CK-2) C-Reactive Protein Total Protein Albumin TSH Free T4 04/26/18 04/26/18 04/27/18 18:08 23:39 05:10 WBC Hgb Hct MCHC RDW Plt Count Lymph % (Auto) [place] % (Auto) Lymph # [place] # Seg Neutrophils % Seg Neutrophils # POC ABG pH POC ABG pCO2 POC ABG pO2 Sodium Potassium Chloride Carbon Dioxide BUN Glucose POC Glucose 110 H 165 H 137 H Hemoglobin A1c Lactic Acid Calcium Phosphorus Magnesium Total Bilirubin Direct Bilirubin AST Total Creatine Kinase CK-MB (CK-2) C-Reactive Protein Total Protein Albumin TSH Free T4 04/27/18 04/27/18 04/27/18 10:04 11:23 17:36 WBC Hgb Hct MCHC RDW Plt Count Lymph % (Auto) [place] % (Auto) Lymph # [place] # Seg Neutrophils % Seg Neutrophils # POC ABG pH POC ABG pCO2 POC ABG pO2 Sodium Potassium Chloride Carbon Dioxide BUN Glucose POC Glucose 190 H 258 H 198 H Hemoglobin A1c Lactic Acid Calcium Phosphorus Magnesium Total Bilirubin Direct Bilirubin AST Total Creatine Kinase CK-MB (CK-2) C-Reactive Protein Total Protein Albumin TSH Free T4 04/27/18 04/28/18 04/28/18 23:23 05:19 13:06 WBC Hgb Hct MCHC RDW Plt Count Lymph % (Auto) [place] % (Auto) Lymph # [place] # Seg Neutrophils % Seg Neutrophils # POC ABG pH POC ABG pCO2 POC ABG pO2 Sodium Potassium Chloride Carbon Dioxide BUN Glucose POC Glucose 131 H 178 H 194 H Hemoglobin A1c Lactic Acid Calcium Phosphorus Magnesium Total Bilirubin Direct Bilirubin AST Total Creatine Kinase CK-MB (CK-2) C-Reactive Protein Total Protein Albumin TSH Free T4 04/28/18 04/29/18 04/29/18 16:59 00:24 05:49 WBC Hgb Hct MCHC RDW Plt Count Lymph % (Auto) [place] % (Auto) Lymph # [place] # Seg Neutrophils % Seg Neutrophils # POC ABG pH POC ABG pCO2 POC ABG pO2 Sodium Potassium Chloride Carbon Dioxide BUN Glucose POC Glucose 155 H 166 H 226 H Hemoglobin A1c Lactic Acid Calcium Phosphorus Magnesium Total Bilirubin Direct Bilirubin AST Total Creatine Kinase CK-MB (CK-2) C-Reactive Protein Total Protein Albumin TSH Free T4 04/29/18 04/29/18 04/29/18 12:12 13:29 13:29 WBC Hgb Hct 34.8 L MCHC RDW Plt Count Lymph % (Auto) [place] % (Auto) 9.8 H Lymph # [place] # Seg Neutrophils % Seg Neutrophils # POC ABG pH POC ABG pCO2 POC ABG pO2 Sodium 135 L Potassium Chloride Carbon Dioxide BUN Glucose 214 H POC Glucose 217 H Hemoglobin A1c Lactic Acid Calcium Phosphorus Magnesium Total Bilirubin Direct Bilirubin AST Total Creatine Kinase CK-MB (CK-2) C-Reactive Protein Total Protein Albumin TSH Free T4 04/29/18 04/29/18 04/30/18 21:56 23:49 05:15 WBC Hgb Hct MCHC RDW Plt Count Lymph % (Auto) [place] % (Auto) Lymph # [place] # Seg Neutrophils % Seg Neutrophils # POC ABG pH POC ABG pCO2 POC ABG pO2 Sodium Potassium Chloride Carbon Dioxide BUN Glucose POC Glucose 129 H 148 H 113 H Hemoglobin A1c Lactic Acid Calcium Phosphorus Magnesium Total Bilirubin Direct Bilirubin AST Total Creatine Kinase CK-MB (CK-2) C-Reactive Protein Total Protein Albumin TSH Free T4 04/30/18 04/30/18 04/30/18 05:28 12:10 18:12 WBC Hgb Hct MCHC RDW Plt Count Lymph % (Auto) [place] % (Auto) Lymph # [place] # Seg Neutrophils % Seg Neutrophils # POC ABG pH POC ABG pCO2 POC ABG pO2 Sodium Potassium Chloride Carbon Dioxide BUN Glucose POC Glucose 118 H 159 H 149 H Hemoglobin A1c Lactic Acid Calcium Phosphorus Magnesium Total Bilirubin Direct Bilirubin AST Total Creatine Kinase CK-MB (CK-2) C-Reactive Protein Total Protein Albumin TSH Free T4 04/30/18 04/30/18 05/01/18 20:12 23:31 05:48 WBC Hgb Hct MCHC RDW Plt Count Lymph % (Auto) [place] % (Auto) Lymph # [place] # Seg Neutrophils % Seg Neutrophils # POC ABG pH POC ABG pCO2 POC ABG pO2 Sodium Potassium Chloride Carbon Dioxide BUN Glucose POC Glucose 187 H 208 H 172 H Hemoglobin A1c Lactic Acid Calcium Phosphorus Magnesium Total Bilirubin Direct Bilirubin AST Total Creatine Kinase CK-MB (CK-2) C-Reactive Protein Total Protein Albumin TSH Free T4 05/01/18 05/01/18 05/01/18 12:25 15:05 18:06 WBC 13.3 H Hgb 11.3 L Hct 33.1 L MCHC RDW Plt Count Lymph % (Auto) 9.8 L [place] % (Auto) 7.7 H Lymph # [place] # 1.0 H Seg Neutrophils % 81.9 H Seg Neutrophils # 10.9 H POC ABG pH POC ABG pCO2 POC ABG pO2 Sodium Potassium Chloride Carbon Dioxide BUN Glucose POC Glucose 151 H 227 H Hemoglobin A1c Lactic Acid Calcium Phosphorus Magnesium Total Bilirubin Direct Bilirubin AST Total Creatine Kinase CK-MB (CK-2) C-Reactive Protein Total Protein Albumin TSH Free T4 05/01/18 05/02/18 05/02/18 23:24 04:56 04:56 WBC 12.9 H Hgb 10.9 L Hct 32.8 L MCHC RDW 15.5 H Plt Count Lymph % (Auto) [place] % (Auto) Lymph # [place] # Seg Neutrophils % Seg Neutrophils # POC ABG pH POC ABG pCO2 POC ABG pO2 Sodium 136 L Potassium Chloride 94.8 L Carbon Dioxide BUN Glucose 175 H POC Glucose 157 H Hemoglobin A1c Lactic Acid Calcium Phosphorus Magnesium Total Bilirubin Direct Bilirubin AST Total Creatine Kinase CK-MB (CK-2) C-Reactive Protein Total Protein Albumin TSH Free T4 05/02/18 05:24 WBC Hgb Hct MCHC RDW Plt Count Lymph % (Auto) [place] % (Auto) Lymph # [place] # Seg Neutrophils % Seg Neutrophils # POC ABG pH POC ABG pCO2 POC ABG pO2 Sodium Potassium Chloride Carbon Dioxide BUN Glucose POC Glucose 178 H Hemoglobin A1c Lactic Acid Calcium Phosphorus Magnesium Total Bilirubin Direct Bilirubin AST Total Creatine Kinase CK-MB (CK-2) C-Reactive Protein Total Protein Albumin TSH Free T4 Allied health notes reviewed: RT
[2018-05-02] MEDS: PEPCID PO SCH ×2 (09:50→21:14)
[2018-05-02] MEDS: KEPPRA PO SCH ×2 (09:50→21:15)
[2018-05-02] MEDS: COLACE FEEDTUBE SCH ×2 (09:51→21:13)
[2018-05-02] MEDS: PROVIGIL PO SCH (09:51)
[2018-05-02] MEDS: NORVASC FEEDTUBE SCH (09:51)
[2018-05-02] MEDS: LOVENOX SUB-Q SCH (09:51)
[2018-05-02] MEDS: LANTUS SUB-Q SCH (09:52)
[2018-05-02] MEDS: SODIUM CHLORIDE FLUSH SYRINGE 10 ML IV SCH ×2 (09:59→21:55)
[2018-05-02] MEDS ORDERED: ROCEPHIN/NS 1 GM/50 ML 1 GM/50 ML BAG IV SCH (10:00)
[2018-05-02] MEDS: MAXIPIME/NS 2 GM/100 ML 2 GM/100 ML BAG IV SCH ×2 (11:18→21:29)
[2018-05-02] MEDS ORDERED: VANCOMYCIN 1,500 MG in NACL 0.9% 500 ML 500 ML IV ONE (12:00)
[2018-05-02 12:10] LABS: Bacteria,Urine 3+ /HPF (Negative); Bilirubin,Urine NEG (Negative); Blood,Urine NEG (Negative); Color,Urine Amber (Yellow); Mucus,Urine 2+ /HPF
--- NOTE | 2018-05-02 16:16 | Progress Note ---
Assessment and Plan Assessment and plan: 78-year-old male patient with significant history of hypertension diabetes coronary artery disease was admitted through emergency room with history of unresponsiveness at home for unknown Duration of time. At that time he had hypoglycemia and seizure activity, Patient was unable to protect his airway and was intubated on ventilatory support admitted to ICU also with concern of Aspiration Pneumonia Hospital course -Neuro: Patient had CT scan 2 days does not show acute abnormality. 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 History this is most likely due to hypoglycemia, Now resolved Pulmonary: The patient has been maintained on mechanical ventilator, he's not been able to be weaned off the vent. The family wants to continue aggressive care. patient underwent Trach and Peg FEN; his electrolytes namely potassium and phosphate were repleted ID; the patient received empiric antibiotics for pneumonia, Cultures including blood, urine and sputum has remained without growth. Musculoskeletal; Traumatic Rhabdomyolysis; status post IV fluids and improved, His medications were optimized for his chronic conditions Neuro: Unresponsive CXR: Concerning for Focal RLL infiltrate initially, repeat done 04/23/18 shows no acute pathology. 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 SWITCHED TO PO Acute Toxic metabolic encephalopathy Likely secondary to Hypoxic Ischemic Encephalopathy vs hypgolycemic encephalopathy -no significant change in ms -EEG abnormal, awaiting repeat -MRI brain neg -neurology following -Maintain sleep wake cycle - Discussed with Sons and sister extensively, Repeat EEG is pending. Will also obtain neurology re-evaluation. They understand the prognosis is poor. - Nephrology ordered repeat CT. Pending Hypokalemia -resolved s/p repletion, will monitor Severe sepsis 2/2 aspiration PNA -resolved -off antibiotics FOLLOWING TREATMENT WITH ROCEPHIN AND FLAGYL Aspiration Pneumonia -completed antibiotics DM II with hyperglycemia - Was hypoglycemic on admission - BG improved - Cont current insulin regimen and adjust as needed Seizure, new onset -probably 2/2 hypoglycemia recorded by EMS staff prior to admission -stable on Keppra -cont seizure precautions Critical Illness Myopathy -cont supportive care Thrombocytopenia -level improved, will monitor Transaminitis -levels improved -Hepatitis panel neg -Abd US neg Rhabdomyolysis -improved Hypophosphatemia -resolved Hypomagenesemia -Replaced HTN -uncontrolled, meds adjusted Moderate protein calorie malnutrition -on tube feeding -mussel farmer following Morbid obesity: Supportive care and counselling when awake DVT/GI prophylaxis with Lovenox and famotidine Poor Prognosis LTAC eval- Referral made. The high probability of a clinically significant, sudden or life threatening deterioration of the [Neurology, Pulmonary] system(s) required my full and direct attention, intervention and personal management. The aggregate critical care time was [35] minutes. This time is in addition to time spent performing reported procedures but includes the following: [x] Data Review and interpretation [x] Patient assessment and monitoring of vital signs [x] Documentation [x] Medication orders and management History Interval history: Patient seen and examined, Remains unresponsive but more lathergic with her normal movement. No overnight issues reported. Patient remains off sedation and not responsive. continues with intermittent low grade temp Hospitalist Physical - Physical exam Narrative exam: VITAL SIGNS: Reviewed. GENERAL: The patient appeared well nourished and normally developed. Continues on mechanical ventilation. Ventilatory support- unresponsive. Vital signs as documented. HEAD: No signs of head trauma. EYES: Pupils are equal. Sluggish response to light.. EARS: Unable to assess MOUTH: Trach NECK: No adenopathy, no JVD. CHEST: Chest with clear breath sounds bilaterally. No wheezes, rales, or rhonchi. CARDIAC: Bradycardia with regular rate. S1 and S2, without murmurs, gallops, or rubs. VASCULAR: No Edema. Peripheral pulses normal and equal in all extremities. ABDOMEN: Peg in placed. Soft, without detectable tenderness. No sign of distention. No rebound or guarding, and no masses palpated. Bowel Sounds normal. MUSCULOSKELETAL: Unable to assess. Extremities without clubbing, cyanosis or edema. NEUROLOGIC EXAM: Unresponsive, moves all ext. PSYCHIATRIC: Unable to assess SKIN: No rash or lesions. - Constitutional Vitals: Temp Pulse Resp BP Pulse Ox 99.7 F H 88 18 132/57 100 05/02/18 12:00 05/02/18 15:01 05/02/18 15:01 05/02/18 15:01 05/02/18 15:27 General appearance: Present: no acute distress, other (intubated on vent) Results - Labs CBC & Chem 7: 05/02/18 04:56 05/02/18 04:56 Labs: Laboratory Last Values WBC 12.9 K/mm3 (4.5-11.0) H 05/02/18 04:56 RBC 3.65 M/mm3 (3.65-5.03) 05/02/18 04:56 Hgb 10.9 gm/dl (11.8-15.2) L 05/02/18 04:56 Hct 32.8 % (35.5-45.6) L 05/02/18 04:56 MCV 90 fl (84-94) 05/02/18 04:56 MCH 30 pg (28-32) 05/02/18 04:56 MCHC 33 % (32-34) 05/02/18 04:56 RDW 15.5 % (13.2-15.2) H 05/02/18 04:56 Plt Count 236 K/mm3 (140-440) 05/02/18 04:56 Lymph % (Auto) 9.8 % (13.4-35.0) L 05/01/18 15:05 [place] % (Auto) 7.7 % (0.0-7.3) H 05/01/18 15:05 Eos % (Auto) 0.3 % (0.0-4.3) 05/01/18 15:05 Baso % (Auto) 0.3 % (0.0-1.8) 05/01/18 15:05 Lymph # 1.3 K/mm3 (1.2-5.4) 05/01/18 15:05 [place] # 1.0 K/mm3 (0.0-0.8) H 05/01/18 15:05 Eos # 0.0 K/mm3 (0.0-0.4) 05/01/18 15:05 Baso # 0.0 K/mm3 (0.0-0.1) 05/01/18 15:05 Seg Neutrophils % 81.9 % (40.0-70.0) H 05/01/18 15:05 Seg Neutrophils # 10.9 K/mm3 (1.8-7.7) H 05/01/18 15:05 PT 13.8 Sec. (12.2-14.9) 04/29/18 21:03 INR 1.00 (0.87-1.13) 04/29/18 21:03 APTT 24.8 Sec. (24.2-36.6) 04/09/18 23:16 POC ABG pH 7.471 (7.35-7.45) H 04/25/18 13:06 POC ABG pCO2 43.5 (35-45) 04/25/18 13:06 POC ABG pO2 115 (80-105) H 04/25/18 13:06 POC ABG HCO3 31.7 04/25/18 13:06 POC ABG Total CO2 33 04/25/18 13:06 POC ABG O2 Sat 99 04/25/18 13:06 POC ABG Base Excess 8 04/25/18 13:06 FiO2 30 % 04/25/18 13:06 Sodium 136 mmol/L (137-145) L 05/02/18 04:56 Potassium 3.7 mmol/L (3.6-5.0) 05/02/18 04:56 Chloride 94.8 mmol/L (98-107) L 05/02/18 04:56 Carbon Dioxide 26 mmol/L (22-30) 05/02/18 04:56 Anion Gap 19 mmol/L 05/02/18 04:56 BUN 12 mg/dL (9-20) 05/02/18 04:56 Creatinine 0.8 mg/dL (0.8-1.5) 05/02/18 04:56 Estimated GFR > 60 ml/min 05/02/18 04:56 BUN/Creatinine Ratio 15 % 05/02/18 04:56 Glucose 175 mg/dL (75-100) H 05/02/18 04:56 POC Glucose 269 (70-105) H 05/02/18 12:36 Hemoglobin A1c 6.4 % (4-6) H 04/11/18 04:28 Lactic Acid 1.70 mmol/L (0.7-2.0) 04/10/18 02:47 Calcium 8.4 mg/dL (8.4-10.2) 05/02/18 04:56 Phosphorus 3.60 mg/dL (2.5-4.5) 04/21/18 05:00 Magnesium 2.10 mg/dL (1.7-2.3) 04/21/18 05:00 Total Bilirubin 1.20 mg/dL (0.1-1.2) 04/18/18 11:00 Direct Bilirubin 0.3 mg/dL (0-0.2) H 04/18/18 11:00 Indirect Bilirubin 0.9 mg/dL 04/18/18 11:00 AST 87 units/L (5-40) H 04/18/18 11:00 ALT 39 units/L (7-56) 04/18/18 11:00 Alkaline Phosphatase 59 units/L (35-129) 04/18/18 11:00 Total Creatine Kinase 2247 units/L (55-170) H 04/14/18 05:00 CK-MB (CK-2) 30.0 ng/mL (0.0-4.0) H 04/10/18 10:37 CK-MB (CK-2) Rel Index 0.3 (0-4) 04/10/18 10:37 Troponin T < 0.010 ng/mL (0.00-0.029) 04/10/18 10:37 C-Reactive Protein 7.20 mg/dL (0.00-1.30) H 04/11/18 13:43 Total Protein 6.8 g/dL (6.3-8.2) 04/18/18 11:00 Albumin 3.7 g/dL (3.9-5) L 04/18/18 11:00 Albumin/Globulin Ratio 1.2 % 04/18/18 11:00 Vitamin B12 745.3 pg/mL (211-911) 04/24/18 16:50 TSH 47.760 mlU/mL (0.270-4.200) H 04/24/18 16:50 Free T4 0.10 ng/dL (0.76-1.46) L 04/24/18 16:50 Urine Color [place] (Yellow) 05/02/18 10:42 Urine Turbidity Slightly-cloudy (Clear) 05/02/18 10:42 Urine pH 5.0 (5.0-7.0) 05/02/18 10:42 Ur Specific [place] 1.029 (1.003-1.030) 05/02/18 10:42 Urine Protein 30 mg/dl mg/dL (Negative) 05/02/18 10:42 Urine Glucose (UA) Neg mg/dL (Negative) 05/02/18 10:42 Urine Ketones Neg mg/dL (Negative) 05/02/18 10:42 Urine Blood Neg (Negative) 05/02/18 10:42 Urine Nitrite Neg (Negative) 05/02/18 10:42 Urine Bilirubin Neg (Negative) 05/02/18 10:42 Urine Urobilinogen 4.0 mg/dL (<2.0) 05/02/18 10:42 Ur Leukocyte Esterase Neg (Negative) 05/02/18 10:42 Urine WBC (Auto) 5.0 /HPF (0.0-6.0) 05/02/18 10:42 Urine RBC (Auto) 69.0 /HPF (0.0-6.0) 05/02/18 10:42 U Epithel Cells (Auto) 1.0 /HPF (0-13.0) 05/02/18 10:42 Urine Bacteria (Auto) 3+ /HPF (Negative) 05/02/18 10:42 Urine Mucus 2+ /HPF 05/02/18 10:42 Urine Yeast (Budding) 3+ /HPF 05/02/18 10:42 Levetiracetam 25.2 mcg/mL 04/12/18 20:37 Hepatitis A IgM Ab Non-reactive (NonReactive) 04/14/18 14:56 Hep Bs Antigen Non-reactive (Negative) 04/14/18 14:56 Hep B Core IgM Ab Non-reactive (NonReactive) 04/14/18 14:56 Hepatitis C Antibody Non-reactive (NonReactive) 04/14/18 14:56 Influenza A (Rapid) Negative (Negative) 04/11/18 15:08 Influenza B (Rapid) Negative (Negative) 04/11/18 15:08 Nutrition/Malnutrition Assess - Dietary Evaluation Nutrition/Malnutrition Findings: Nutrition Notes Start: 04/11/18 10:20 Freq: Status: Active Protocol: Document 05/02/18 15:11 OL (Rec: 05/02/18 15:18 OL [id number]) Nutrition Notes Initial or Follow up Assessment Current Diagnosis Coronary Artery Disease, Diabetes,Hypertension, Respiratory Failure Other Pertinent Diagnosis Pneu, new onset seizures, acute encephalopathy Current Diet Vital AF 1.2 at 50ml/hr Labs/Tests glucose 175 Pertinent Medications Reviewed Height 5 ft 9 in Weight 93.9 kg [place] Body Weight (kg) 72.72 BMI 30.5 Subjective/Other Information Vital AF infusing at goal rate of 50mL/hr. Trach and PEG placed 04/30. Percent of energy/protein needs met: 96%/62% Burn Absent Trauma Absent #1 Nutrition Diagnosis Inadequate oral intake Diagnosis Progress(for reassessment Continues documentation) Is patient on ventilator? Yes Is Patient Ambulatory and/or Out of Bed No REE-([place] [facility]-confined to bed) 1984.616 Kcal/Kg value to use for calculation 16 Approximate Energy Requirements Using 1502 kcal/Kg Calculation Used for Recommendations Kcal/kg Additional Notes protein (2g/kg IBW): 145gm fluid:1mL/kcal or per MD Nutrition Intervention Change Diet Order: Vital AF 1.2 Nutrition Support: Vital 1.2 at 50 mL/hr. Water flush 80 mL q4h. Kcal 1,440 Protein (gm) 90 Fat (gm) 33 Fluid (mL) 973 Goal #1 Continue to meet at least 80% of kcal and protein needs Anticipated Discharge Needs: Unable to determine at this time Follow-Up By: 05/09/18 Additional Comments Follow for stable TF
[2018-05-02] MEDS: TYLENOL PO PRN (18:01)
[2018-05-02] MEDS: MIRALAX 3350 PO SCH (21:16)
[2018-05-03] MEDS: HumaLOG SUB-Q SCH ×4 (00:10→18:36)
[2018-05-03 04:33] LABS: Mean Corpuscular HGB Conc 35 % (32-34); Mean Corpuscular Volume 90 fl (84-94); Platelet Count 215 K/mm3 (140-440); Red Blood Count 3.54 M/mm3 (3.65-5.03); Red Cell Distribution Width 15.5 % (13.2-15.2)
[2018-05-03 04:54] LABS: BUN/Creatinine Ratio 17; Blood Urea Nitrogen 12 mg/dL (9-20); Calcium 8.5 mg/dL (8.4-10.2); Hemolysis Index 3
[2018-05-03] MEDS: SYNTHROID PO SCH (05:16)
[2018-05-03] MEDS: APRESOLINE PO SCH ×3 (08:51→23:00)
[2018-05-03] MEDS: HumuLIN R SUB-Q SCH ×3 (08:51→19:36)
[2018-05-03] MEDS: KEPPRA PO SCH ×2 (10:13→22:59)
[2018-05-03] MEDS: COLACE FEEDTUBE SCH ×2 (10:13→22:59)
[2018-05-03] MEDS: LANTUS SUB-Q SCH (10:14)
[2018-05-03] MEDS: LOVENOX SUB-Q SCH (10:15)
[2018-05-03] MEDS: NORVASC FEEDTUBE SCH (10:16)
[2018-05-03] MEDS: PROVIGIL PO SCH (10:16)
[2018-05-03] MEDS: PEPCID PO SCH ×2 (10:17→22:00)
[2018-05-03] MEDS: SODIUM CHLORIDE FLUSH SYRINGE 10 ML IV SCH ×2 (10:17→22:05)
--- NOTE | 2018-05-03 10:31 | Progress Note ---
Assessment and Plan Acute Hypoxemic Respiratory Failure on MVS s/p trachesotomy s/p PEG Fevers with DNR in urine New Onset Seizures (presumed secondary to Hypoglycemia) Acute Encephalopathy (Toxic -Metabolic) Hypoxic ischemic encephalopathy Diabetes Type II, hypoglycemia Rhabdomyolysis Obesity HTN Possible JOE Leucocytosis h/o Alcohol use disorder Medical decision making --Started on empiric antibiotics, blood cultures negative to date. De-escalate antibiotics -Blood pressure control -Secretion management -Avoid delirium, maintain sleep-wake cycle. -Continue ATP trials as tolerated-Adjust insulin therapy for better glycemic control All other care as outlined below. -VAP bundle addressed -Anti-seizure medications -Analgesia and agitation management. -VTE and stress ulcer prophylaxis -AEDs (Keppra) -Enteric nutrition with glycemic control -Target blood glucose level 140-180mg/dL -Avoid hypoglycemia -Critical care bundles addressed -Aspiration precautions - Wean supplemental oxygen to keep O2 sats > 90% -Lung protective strategies - Bronchodilators per protocol - Daily SAT's and SBT - Replace electrolytes as indicated Discussed with RT and RN Updated his son who is at the bedside CONDITION: FAIR PROGNOSIS: Uncertain, prison CODE STATUS: FULL CODE Subjective Date of service: 05/03/18 Principal diagnosis: Ac Hypoxemic Resp Failure; Seizures; Encephalopathy; DM II; Rhabdomyolysis Interval history: Patient is seen today for: Acute Hypoxemic Respiratory Failure; New Onset Seizures (presumed secondary to Hypoglycemia); Acute Encephalopathy (Toxic - Metabolic); Diabetes Type II; Rhabdomyolysis Seen and examined at bedside; 24hour events reviewed; nursing and respiratory care staff consulted; no adverse overnight events reported to me; resting peacefully in bed; remains encephalopathic, Remains on MVS s/p trach and PEG tolerating PSV trials, no fevers documented overnight.No episodes of vomiting, tolerating tube feeding. Son is visiting at the bedside Objective Vital Signs - 12hr 05/02/18 05/02/18 05/02/18 22:45 23:01 23:15 Temperature Pulse Rate 78 79 80 Pulse Rate [ Apical] Pulse Rate [ From Monitor] Pulse Rate [ Right Dorsalis Pedis] Respiratory 16 18 15 Rate Blood Pressure 129/55 129/60 129/60 O2 Sat by Pulse 100 100 100 Oximetry 05/02/18 05/02/18 05/02/18 23:17 23:31 23:39 Temperature Pulse Rate 82 79 78 Pulse Rate [ Apical] Pulse Rate [ From Monitor] Pulse Rate [ Right Dorsalis Pedis] Respiratory 18 19 Rate Blood Pressure 129/60 133/58 133/58 O2 Sat by Pulse 99 100 100 Oximetry 05/02/18 05/02/18 05/03/18 23:42 23:45 00:00 Temperature 100.4 F H Pulse Rate 87 76 Pulse Rate [ 65 Apical] Pulse Rate [ 65 From Monitor] Pulse Rate [ 65 Right Dorsalis Pedis] Respiratory 15 15 Rate Blood Pressure 133/58 O2 Sat by Pulse 100 100 Oximetry 05/03/18 05/03/18 05/03/18 00:01 00:15 00:31 Temperature Pulse Rate 78 79 76 Pulse Rate [ Apical] Pulse Rate [ From Monitor] Pulse Rate [ Right Dorsalis Pedis] Respiratory 18 13 17 Rate Blood Pressure 121/58 121/58 130/59 O2 Sat by Pulse 100 100 100 Oximetry 05/03/18 05/03/18 05/03/18 00:45 01:01 01:15 Temperature Pulse Rate 80 78 77 Pulse Rate [ Apical] Pulse Rate [ From Monitor] Pulse Rate [ Right Dorsalis Pedis] Respiratory 14 18 15 Rate Blood Pressure 130/59 120/59 120/59 O2 Sat by Pulse 100 100 100 Oximetry 05/03/18 05/03/18 05/03/18 01:31 01:45 02:01 Temperature Pulse Rate 76 74 77 Pulse Rate [ Apical] Pulse Rate [ From Monitor] Pulse Rate [ Right Dorsalis Pedis] Respiratory 15 16 16 Rate Blood Pressure 130/59 130/59 121/61 O2 Sat by Pulse 100 100 100 Oximetry 05/03/18 05/03/18 05/03/18 02:15 02:31 02:45 Temperature Pulse Rate 81 80 87 Pulse Rate [ Apical] Pulse Rate [ From Monitor] Pulse Rate [ Right Dorsalis Pedis] Respiratory 15 14 19 Rate Blood Pressure 121/61 121/61 127/59 O2 Sat by Pulse 100 100 100 Oximetry 05/03/18 05/03/18 05/03/18 03:01 03:15 03:20 Temperature 100.8 F H Pulse Rate 69 75 Pulse Rate [ Apical] Pulse Rate [ From Monitor] Pulse Rate [ Right Dorsalis Pedis] Respiratory 13 12 Rate Blood Pressure 110/55 110/55 O2 Sat by Pulse 100 99 Oximetry 05/03/18 05/03/18 05/03/18 03:22 03:31 03:45 Temperature Pulse Rate 76 78 85 Pulse Rate [ Apical] Pulse Rate [ From Monitor] Pulse Rate [ Right Dorsalis Pedis] Respiratory 18 19 Rate Blood Pressure 110/55 110/55 110/55 O2 Sat by Pulse 100 100 99 Oximetry 05/03/18 05/03/18 05/03/18 04:00 04:15 04:31 Temperature Pulse Rate 81 80 83 Pulse Rate [ 84 Apical] Pulse Rate [ 84 From Monitor] Pulse Rate [ 72 Right Dorsalis Pedis] Respiratory 12 11 L 16 Rate Blood Pressure 123/71 129/61 123/71 O2 Sat by Pulse 100 100 100 Oximetry 05/03/18 05/03/18 05/03/18 04:45 05:00 05:15 Temperature Pulse Rate 88 90 85 Pulse Rate [ Apical] Pulse Rate [ From Monitor] Pulse Rate [ Right Dorsalis Pedis] Respiratory 13 18 13 Rate Blood Pressure 123/71 128/63 128/63 O2 Sat by Pulse 98 99 100 Oximetry 05/03/18 05/03/18 05/03/18 05:31 05:45 06:01 Temperature Pulse Rate 82 83 81 Pulse Rate [ Apical] Pulse Rate [ From Monitor] Pulse Rate [ Right Dorsalis Pedis] Respiratory 14 14 17 Rate Blood Pressure 128/63 138/54 138/54 O2 Sat by Pulse 100 100 99 Oximetry 05/03/18 05/03/18 05/03/18 06:15 06:31 06:45 Temperature Pulse Rate 84 78 86 Pulse Rate [ Apical] Pulse Rate [ From Monitor] Pulse Rate [ Right Dorsalis Pedis] Respiratory 21 18 18 Rate Blood Pressure 150/62 150/62 150/62 O2 Sat by Pulse 100 100 99 Oximetry 05/03/18 05/03/18 05/03/18 07:01 07:15 07:30 Temperature Pulse Rate 74 75 90 Pulse Rate [ Apical] Pulse Rate [ From Monitor] Pulse Rate [ Right Dorsalis Pedis] Respiratory 13 18 14 Rate Blood Pressure 150/62 150/62 150/62 O2 Sat by Pulse 100 100 100 Oximetry 05/03/18 05/03/18 05/03/18 07:45 08:00 08:28 Temperature 98.6 F Pulse Rate 77 70 76 Pulse Rate [ Apical] Pulse Rate [ From Monitor] Pulse Rate [ Right Dorsalis Pedis] Respiratory 14 15 Rate Blood Pressure 141/62 141/62 134/58 O2 Sat by Pulse 100 100 100 Oximetry 05/03/18 05/03/18 05/03/18 08:43 08:51 10:16 Temperature Pulse Rate 88 86 85 Pulse Rate [ Apical] Pulse Rate [ From Monitor] Pulse Rate [ Right Dorsalis Pedis] Respiratory 12 Rate Blood Pressure 138/60 138/60 124/68 O2 Sat by Pulse 100 Oximetry Constitutional: no acute distress, other (Elderly looking AAM, normocephalic and atraumatic with mildly increased respiratory effort on MVS) Eyes: non-icteric ENT: oropharynx moist, other (s/p tracheostomy) Neck: supple, no lymphadenopathy, no JVD, other (large neck circumference) Effort: mildly labored Ascultation: Bilateral: diminished breath sounds, rhonchi Percussion: Bilateral: not dull Cardiovascular: regular rate and rhythm Gastrointestinal: normoactive bowel sounds, soft, non-tender, non-distended, other (protuberant) Integumentary: normal Extremities: no cyanosis, no edema, pulses normal, no ischemia or petechiae Neurologic: non-focal exam (grossly), unable to assess, other (opens eyes spontaneously, not following my prompts) Psychiatric: other (unable to assess) CBC and BMP: 05/05/18 04:27 05/05/18 04:27 ABG, PT/INR, D-dimer: ABG POC ABG pH 7.471 (7.35-7.45) H 04/25/18 13:06 POC ABG pCO2 43.5 (35-45) 04/25/18 13:06 POC ABG pO2 115 (80-105) H 04/25/18 13:06 POC ABG HCO3 31.7 04/25/18 13:06 POC ABG Total CO2 33 04/25/18 13:06 POC ABG O2 Sat 99 04/25/18 13:06 PT/INR, D-dimer PT 13.8 Sec. (12.2-14.9) 04/29/18 21:03 INR 1.00 (0.87-1.13) 04/29/18 21:03 Abnormal lab findings: Abnormal Labs 04/09/18 04/09/18 04/09/18 23:16 23:16 23:16 WBC 13.6 H RBC Hgb Hct MCHC RDW Plt Count Lymph % (Auto) 9.4 L [place] % (Auto) Lymph # [place] # Seg Neutrophils % 87.3 H Seg Neutrophils # 11.9 H POC ABG pH POC ABG pCO2 POC ABG pO2 Sodium 132 L Potassium Chloride 92.7 L Carbon Dioxide BUN Creatinine Glucose 143 H POC Glucose Hemoglobin A1c Lactic Acid 2.10 H* Calcium Phosphorus Magnesium Total Bilirubin 2.20 H Direct Bilirubin AST 107 H Total Creatine Kinase CK-MB (CK-2) C-Reactive Protein Total Protein Albumin TSH Free T4 04/10/18 04/10/18 04/10/18 00:38 00:55 01:13 WBC RBC Hgb Hct MCHC RDW Plt Count Lymph % (Auto) [place] % (Auto) Lymph # [place] # Seg Neutrophils % Seg Neutrophils # POC ABG pH POC ABG pCO2 POC ABG pO2 Sodium Potassium Chloride Carbon Dioxide BUN Creatinine Glucose POC Glucose 117 H 121 H Hemoglobin A1c Lactic Acid 2.10 H* Calcium Phosphorus Magnesium Total Bilirubin Direct Bilirubin AST Total Creatine Kinase CK-MB (CK-2) C-Reactive Protein Total Protein Albumin TSH Free T4 04/10/18 04/10/18 04/10/18 02:10 03:51 04:07 WBC 14.0 H RBC Hgb Hct MCHC RDW Plt Count Lymph % (Auto) 7.5 L [place] % (Auto) Lymph # 1.1 L [place] # 1.0 H Seg Neutrophils % 84.9 H Seg Neutrophils # 11.8 H POC ABG pH POC ABG pCO2 POC ABG pO2 Sodium Potassium Chloride Carbon Dioxide BUN Creatinine Glucose POC Glucose 153 H 158 H Hemoglobin A1c Lactic Acid Calcium Phosphorus Magnesium Total Bilirubin Direct Bilirubin AST Total Creatine Kinase CK-MB (CK-2) C-Reactive Protein Total Protein Albumin TSH Free T4 04/10/18 04/10/18 04/10/18 04:07 06:56 09:48 WBC RBC Hgb Hct MCHC RDW Plt Count Lymph % (Auto) [place] % (Auto) Lymph # [place] # Seg Neutrophils % Seg Neutrophils # POC ABG pH POC ABG pCO2 POC ABG pO2 Sodium 130 L Potassium Chloride 93.4 L Carbon Dioxide BUN Creatinine Glucose 180 H POC Glucose 251 H 245 H Hemoglobin A1c Lactic Acid Calcium 7.9 L D Phosphorus Magnesium Total Bilirubin Direct Bilirubin AST Total Creatine Kinase 7857 H CK-MB (CK-2) 34.3 H C-Reactive Protein Total Protein Albumin TSH Free T4 04/10/18 04/10/18 04/10/18 10:37 12:44 17:31 WBC RBC Hgb Hct MCHC RDW Plt Count Lymph % (Auto) [place] % (Auto) Lymph # [place] # Seg Neutrophils % Seg Neutrophils # POC ABG pH POC ABG pCO2 45.6 H POC ABG pO2 374 H Sodium Potassium Chloride Carbon Dioxide BUN Creatinine Glucose POC Glucose 348 H Hemoglobin A1c Lactic Acid Calcium Phosphorus Magnesium Total Bilirubin Direct Bilirubin AST Total Creatine Kinase 9880 H CK-MB (CK-2) 30.0 H C-Reactive Protein Total Protein Albumin TSH Free T4 04/10/18 04/11/18 04/11/18 23:36 03:52 04:28 WBC 12.2 H RBC Hgb Hct MCHC RDW Plt Count 132 L Lymph % (Auto) [place] % (Auto) 10.2 H Lymph # [place] # 1.2 H Seg Neutrophils % 75.1 H Seg Neutrophils # 9.1 H POC ABG pH 7.495 H POC ABG pCO2 32.4 L POC ABG pO2 Sodium Potassium Chloride Carbon Dioxide BUN Creatinine Glucose POC Glucose 148 H Hemoglobin A1c Lactic Acid Calcium Phosphorus Magnesium Total Bilirubin Direct Bilirubin AST Total Creatine Kinase CK-MB (CK-2) C-Reactive Protein Total Protein Albumin TSH Free T4 04/11/18 04/11/18 04/11/18 04:28 04:28 05:22 WBC RBC Hgb Hct MCHC RDW Plt Count Lymph % (Auto) [place] % (Auto) Lymph # [place] # Seg Neutrophils % Seg Neutrophils # POC ABG pH POC ABG pCO2 POC ABG pO2 Sodium 133 L Potassium 3.5 L Chloride 95.1 L Carbon Dioxide BUN 7 L Creatinine Glucose 206 H POC Glucose 178 H Hemoglobin A1c 6.4 H Lactic Acid Calcium 7.7 L Phosphorus 1.80 L Magnesium 1.50 L Total Bilirubin 4.10 H Direct Bilirubin AST 168 H Total Creatine Kinase 9352 H CK-MB (CK-2) C-Reactive Protein Total Protein Albumin 3.4 L TSH Free T4 04/11/18 04/11/18 04/11/18 11:28 13:43 17:30 WBC RBC Hgb Hct MCHC RDW Plt Count Lymph % (Auto) [place] % (Auto) Lymph # [place] # Seg Neutrophils % Seg Neutrophils # POC ABG pH POC ABG pCO2 POC ABG pO2 Sodium Potassium Chloride Carbon Dioxide BUN Creatinine Glucose POC Glucose 196 H 142 H Hemoglobin A1c Lactic Acid Calcium Phosphorus Magnesium Total Bilirubin Direct Bilirubin AST Total Creatine Kinase CK-MB (CK-2) C-Reactive Protein 7.20 H Total Protein Albumin TSH Free T4 04/11/18 04/11/18 04/12/18 18:59 23:23 04:00 WBC RBC Hgb Hct MCHC RDW Plt Count Lymph % (Auto) [place] % (Auto) Lymph # [place] # Seg Neutrophils % Seg Neutrophils # POC ABG pH 7.489 H POC ABG pCO2 34.5 L POC ABG pO2 Sodium Potassium 3.3 L Chloride Carbon Dioxide BUN 6 L Creatinine Glucose 151 H POC Glucose 129 H Hemoglobin A1c Lactic Acid Calcium 7.3 L Phosphorus 2.00 L Magnesium Total Bilirubin 2.80 H Direct Bilirubin AST 121 H Total Creatine Kinase 5177 H CK-MB (CK-2) C-Reactive Protein Total Protein 5.9 L Albumin 3.1 L TSH Free T4 04/12/18 04/12/18 04/12/18 04:00 04:04 05:21 WBC RBC Hgb Hct 34.9 L MCHC 35 H RDW Plt Count 128 L Lymph % (Auto) [place] % (Auto) 10.6 H Lymph # [place] # 0.9 H Seg Neutrophils % Seg Neutrophils # POC ABG pH 7.454 H POC ABG pCO2 POC ABG pO2 Sodium Potassium Chloride Carbon Dioxide BUN Creatinine Glucose POC Glucose 136 H Hemoglobin A1c Lactic Acid Calcium Phosphorus Magnesium Total Bilirubin Direct Bilirubin AST Total Creatine Kinase CK-MB (CK-2) C-Reactive Protein Total Protein Albumin TSH Free T4 04/12/18 04/13/18 04/13/18 11:23 00:21 04:57 WBC RBC Hgb Hct MCHC RDW Plt Count Lymph % (Auto) [place] % (Auto) Lymph # [place] # Seg Neutrophils % Seg Neutrophils # POC ABG pH POC ABG pCO2 34.7 L POC ABG pO2 125 H Sodium Potassium Chloride Carbon Dioxide BUN Creatinine Glucose POC Glucose 166 H 143 H Hemoglobin A1c Lactic Acid Calcium Phosphorus Magnesium Total Bilirubin Direct Bilirubin AST Total Creatine Kinase CK-MB (CK-2) C-Reactive Protein Total Protein Albumin TSH Free T4 04/13/18 04/13/18 04/13/18 05:02 05:02 12:16 WBC RBC Hgb Hct MCHC RDW Plt Count Lymph % (Auto) [place] % (Auto) Lymph # [place] # Seg Neutrophils % Seg Neutrophils # POC ABG pH POC ABG pCO2 POC ABG pO2 Sodium Potassium Chloride Carbon Dioxide BUN Creatinine Glucose POC Glucose 161 H 170 H Hemoglobin A1c Lactic Acid Calcium Phosphorus Magnesium Total Bilirubin Direct Bilirubin AST Total Creatine Kinase 3456 H CK-MB (CK-2) C-Reactive Protein Total Protein Albumin TSH Free T4 04/13/18 04/13/18 04/14/18 18:52 23:09 04:35 WBC RBC Hgb Hct MCHC RDW Plt Count Lymph % (Auto) [place] % (Auto) Lymph # [place] # Seg Neutrophils % Seg Neutrophils # POC ABG pH 7.467 H POC ABG pCO2 POC ABG pO2 Sodium Potassium Chloride Carbon Dioxide BUN Creatinine Glucose POC Glucose 196 H 219 H Hemoglobin A1c Lactic Acid Calcium Phosphorus Magnesium Total Bilirubin Direct Bilirubin AST Total Creatine Kinase CK-MB (CK-2) C-Reactive Protein Total Protein Albumin TSH Free T4 04/14/18 04/14/18 04/14/18 05:00 05:26 11:20 WBC RBC Hgb Hct MCHC RDW Plt Count Lymph % (Auto) [place] % (Auto) Lymph # [place] # Seg Neutrophils % Seg Neutrophils # POC ABG pH POC ABG pCO2 POC ABG pO2 Sodium Potassium Chloride Carbon Dioxide BUN Creatinine Glucose POC Glucose 249 H 260 H Hemoglobin A1c Lactic Acid Calcium Phosphorus Magnesium Total Bilirubin Direct Bilirubin AST Total Creatine Kinase 2247 H CK-MB (CK-2) C-Reactive Protein Total Protein Albumin TSH Free T4 04/14/18 04/14/18 04/14/18 17:04 17:51 23:53 WBC RBC Hgb Hct MCHC RDW Plt Count Lymph % (Auto) [place] % (Auto) Lymph # [place] # Seg Neutrophils % Seg Neutrophils # POC ABG pH POC ABG pCO2 POC ABG pO2 79 L Sodium Potassium Chloride Carbon Dioxide BUN Creatinine Glucose POC Glucose 284 H 203 H Hemoglobin A1c Lactic Acid Calcium Phosphorus Magnesium Total Bilirubin Direct Bilirubin AST Total Creatine Kinase CK-MB (CK-2) C-Reactive Protein Total Protein Albumin TSH Free T4 04/15/18 04/15/18 04/15/18 04:24 05:26 12:56 WBC RBC Hgb Hct MCHC RDW Plt Count Lymph % (Auto) [place] % (Auto) Lymph # [place] # Seg Neutrophils % Seg Neutrophils # POC ABG pH POC ABG pCO2 45.4 H POC ABG pO2 78 L Sodium Potassium Chloride Carbon Dioxide BUN Creatinine Glucose POC Glucose 194 H 200 H Hemoglobin A1c Lactic Acid Calcium Phosphorus Magnesium Total Bilirubin Direct Bilirubin AST Total Creatine Kinase CK-MB (CK-2) C-Reactive Protein Total Protein Albumin TSH Free T4 04/15/18 04/15/18 04/16/18 17:46 23:57 05:08 WBC RBC Hgb Hct MCHC RDW Plt Count Lymph % (Auto) [place] % (Auto) Lymph # [place] # Seg Neutrophils % Seg Neutrophils # POC ABG pH POC ABG pCO2 POC ABG pO2 Sodium Potassium Chloride Carbon Dioxide BUN Creatinine Glucose POC Glucose 118 H 204 H 221 H Hemoglobin A1c Lactic Acid Calcium Phosphorus Magnesium Total Bilirubin Direct Bilirubin AST Total Creatine Kinase CK-MB (CK-2) C-Reactive Protein Total Protein Albumin TSH Free T4 04/16/18 04/16/18 04/16/18 05:16 12:23 13:07 WBC RBC Hgb Hct MCHC RDW Plt Count Lymph % (Auto) [place] % (Auto) Lymph # [place] # Seg Neutrophils % Seg Neutrophils # POC ABG pH 7.456 H POC ABG pCO2 46.7 H POC ABG pO2 Sodium Potassium Chloride Carbon Dioxide BUN Creatinine Glucose POC Glucose 271 H Hemoglobin A1c Lactic Acid Calcium Phosphorus Magnesium Total Bilirubin Direct Bilirubin AST Total Creatine Kinase CK-MB (CK-2) C-Reactive Protein Total Protein Albumin TSH Free T4 04/16/18 04/17/18 04/17/18 19:14 00:08 05:46 WBC RBC Hgb Hct MCHC RDW Plt Count Lymph % (Auto) [place] % (Auto) Lymph # [place] # Seg Neutrophils % Seg Neutrophils # POC ABG pH POC ABG pCO2 POC ABG pO2 Sodium Potassium Chloride Carbon Dioxide BUN Creatinine Glucose POC Glucose 221 H 238 H 274 H Hemoglobin A1c Lactic Acid Calcium Phosphorus Magnesium Total Bilirubin Direct Bilirubin AST Total Creatine Kinase CK-MB (CK-2) C-Reactive Protein Total Protein Albumin TSH Free T4 04/17/18 04/17/18 04/17/18 13:50 13:59 14:20 WBC RBC Hgb Hct MCHC RDW Plt Count Lymph % (Auto) [place] % (Auto) Lymph # [place] # Seg Neutrophils % Seg Neutrophils # POC ABG pH 7.474 H POC ABG pCO2 POC ABG pO2 Sodium Potassium 3.4 L Chloride 93.6 L Carbon Dioxide 33 H BUN Creatinine Glucose 305 H POC Glucose 315 H Hemoglobin A1c Lactic Acid Calcium Phosphorus Magnesium Total Bilirubin Direct Bilirubin AST Total Creatine Kinase CK-MB (CK-2) C-Reactive Protein Total Protein Albumin TSH Free T4 04/17/18 04/17/18 04/18/18 17:04 23:26 04:20 WBC RBC Hgb Hct MCHC RDW Plt Count Lymph % (Auto) [place] % (Auto) Lymph # [place] # Seg Neutrophils % Seg Neutrophils # POC ABG pH 7.473 H POC ABG pCO2 POC ABG pO2 Sodium Potassium Chloride Carbon Dioxide BUN Creatinine Glucose POC Glucose 280 H 284 H Hemoglobin A1c Lactic Acid Calcium Phosphorus Magnesium Total Bilirubin Direct Bilirubin AST Total Creatine Kinase CK-MB (CK-2) C-Reactive Protein Total Protein Albumin TSH Free T4 04/18/18 04/18/18 04/18/18 05:14 08:32 11:00 WBC RBC Hgb Hct MCHC RDW Plt Count Lymph % (Auto) [place] % (Auto) Lymph # [place] # Seg Neutrophils % Seg Neutrophils # POC ABG pH POC ABG pCO2 POC ABG pO2 Sodium Potassium Chloride Carbon Dioxide BUN Creatinine Glucose POC Glucose 286 H 296 H Hemoglobin A1c Lactic Acid Calcium Phosphorus Magnesium Total Bilirubin Direct Bilirubin 0.3 H AST 87 H Total Creatine Kinase CK-MB (CK-2) C-Reactive Protein Total Protein Albumin 3.7 L TSH Free T4 04/18/18 04/18/18 04/19/18 12:03 18:15 00:08 WBC RBC Hgb Hct MCHC RDW Plt Count Lymph % (Auto) [place] % (Auto) Lymph # [place] # Seg Neutrophils % Seg Neutrophils # POC ABG pH POC ABG pCO2 POC ABG pO2 Sodium Potassium Chloride Carbon Dioxide BUN Creatinine Glucose POC Glucose 353 H 327 H 331 H Hemoglobin A1c Lactic Acid Calcium Phosphorus Magnesium Total Bilirubin Direct Bilirubin AST Total Creatine Kinase CK-MB (CK-2) C-Reactive Protein Total Protein Albumin TSH Free T4 04/19/18 04/19/18 04/19/18 04:46 05:26 11:48 WBC RBC Hgb Hct MCHC RDW Plt Count Lymph % (Auto) [place] % (Auto) Lymph # [place] # Seg Neutrophils % Seg Neutrophils # POC ABG pH 7.497 H POC ABG pCO2 POC ABG pO2 119 H Sodium Potassium Chloride Carbon Dioxide BUN Creatinine Glucose POC Glucose 323 H 266 H Hemoglobin A1c Lactic Acid Calcium Phosphorus Magnesium Total Bilirubin Direct Bilirubin AST Total Creatine Kinase CK-MB (CK-2) C-Reactive Protein Total Protein Albumin TSH Free T4 04/19/18 04/19/18 04/20/18 17:52 23:37 00:07 WBC RBC Hgb Hct MCHC RDW Plt Count Lymph % (Auto) [place] % (Auto) Lymph # [place] # Seg Neutrophils % Seg Neutrophils # POC ABG pH POC ABG pCO2 POC ABG pO2 Sodium Potassium Chloride Carbon Dioxide BUN Creatinine Glucose POC Glucose 284 H 285 H 312 H Hemoglobin A1c Lactic Acid Calcium Phosphorus Magnesium Total Bilirubin Direct Bilirubin AST Total Creatine Kinase CK-MB (CK-2) C-Reactive Protein Total Protein Albumin TSH Free T4 04/20/18 04/20/18 04/20/18 04:09 04:09 04:37 WBC RBC Hgb Hct 34.7 L MCHC 35 H RDW Plt Count Lymph % (Auto) [place] % (Auto) Lymph # [place] # Seg Neutrophils % Seg Neutrophils # POC ABG pH POC ABG pCO2 POC ABG pO2 Sodium Potassium 3.5 L Chloride 95.7 L Carbon Dioxide 34 H BUN Creatinine Glucose 286 H POC Glucose 267 H Hemoglobin A1c Lactic Acid Calcium Phosphorus Magnesium Total Bilirubin Direct Bilirubin AST Total Creatine Kinase CK-MB (CK-2) C-Reactive Protein Total Protein Albumin TSH Free T4 04/20/18 04/20/18 04/20/18 12:32 17:54 21:07 WBC RBC Hgb Hct MCHC RDW Plt Count Lymph % (Auto) [place] % (Auto) Lymph # [place] # Seg Neutrophils % Seg Neutrophils # POC ABG pH POC ABG pCO2 POC ABG pO2 Sodium Potassium Chloride Carbon Dioxide BUN Creatinine Glucose POC Glucose 220 H 298 H 187 H Hemoglobin A1c Lactic Acid Calcium Phosphorus Magnesium Total Bilirubin Direct Bilirubin AST Total Creatine Kinase CK-MB (CK-2) C-Reactive Protein Total Protein Albumin TSH Free T4 04/21/18 04/21/18 04/21/18 00:04 05:00 05:41 WBC RBC Hgb Hct MCHC RDW Plt Count Lymph % (Auto) [place] % (Auto) Lymph # [place] # Seg Neutrophils % Seg Neutrophils # POC ABG pH POC ABG pCO2 POC ABG pO2 Sodium Potassium Chloride 95.2 L Carbon Dioxide 34 H BUN Creatinine Glucose 179 H POC Glucose 183 H 166 H Hemoglobin A1c Lactic Acid Calcium Phosphorus Magnesium Total Bilirubin Direct Bilirubin AST Total Creatine Kinase CK-MB (CK-2) C-Reactive Protein Total Protein Albumin TSH Free T4 04/21/18 04/21/18 04/21/18 11:55 18:09 23:36 WBC RBC Hgb Hct MCHC RDW Plt Count Lymph % (Auto) [place] % (Auto) Lymph # [place] # Seg Neutrophils % Seg Neutrophils # POC ABG pH POC ABG pCO2 POC ABG pO2 Sodium Potassium Chloride Carbon Dioxide BUN Creatinine Glucose POC Glucose 219 H 247 H 229 H Hemoglobin A1c Lactic Acid Calcium Phosphorus Magnesium Total Bilirubin Direct Bilirubin AST Total Creatine Kinase CK-MB (CK-2) C-Reactive Protein Total Protein Albumin TSH Free T4 04/22/18 04/22/18 04/22/18 04:07 04:07 05:08 WBC RBC Hgb Hct MCHC 35 H RDW 15.3 H Plt Count Lymph % (Auto) [place] % (Auto) Lymph # [place] # Seg Neutrophils % Seg Neutrophils # POC ABG pH POC ABG pCO2 POC ABG pO2 Sodium Potassium Chloride 97.4 L Carbon Dioxide 31 H BUN Creatinine Glucose 177 H POC Glucose 200 H Hemoglobin A1c Lactic Acid Calcium Phosphorus Magnesium Total Bilirubin Direct Bilirubin AST Total Creatine Kinase CK-MB (CK-2) C-Reactive Protein Total Protein Albumin TSH Free T4 04/22/18 04/22/18 04/23/18 12:15 18:04 04:55 WBC RBC Hgb Hct MCHC RDW Plt Count Lymph % (Auto) [place] % (Auto) Lymph # [place] # Seg Neutrophils % Seg Neutrophils # POC ABG pH POC ABG pCO2 POC ABG pO2 Sodium Potassium Chloride Carbon Dioxide BUN 23 H Creatinine Glucose 274 H POC Glucose 189 H 191 H Hemoglobin A1c Lactic Acid Calcium Phosphorus Magnesium Total Bilirubin Direct Bilirubin AST Total Creatine Kinase CK-MB (CK-2) C-Reactive Protein Total Protein Albumin TSH Free T4 04/23/18 04/23/18 04/23/18 05:21 11:06 17:46 WBC RBC Hgb Hct MCHC RDW Plt Count Lymph % (Auto) [place] % (Auto) Lymph # [place] # Seg Neutrophils % Seg Neutrophils # POC ABG pH POC ABG pCO2 POC ABG pO2 Sodium Potassium Chloride Carbon Dioxide BUN Creatinine Glucose POC Glucose 143 H 176 H 142 H Hemoglobin A1c Lactic Acid Calcium Phosphorus Magnesium Total Bilirubin Direct Bilirubin AST Total Creatine Kinase CK-MB (CK-2) C-Reactive Protein Total Protein Albumin TSH Free T4 04/23/18 04/24/18 04/24/18 23:35 06:02 11:37 WBC RBC Hgb Hct MCHC RDW Plt Count Lymph % (Auto) [place] % (Auto) Lymph # [place] # Seg Neutrophils % Seg Neutrophils # POC ABG pH POC ABG pCO2 POC ABG pO2 Sodium Potassium Chloride Carbon Dioxide BUN Creatinine Glucose POC Glucose 127 H 175 H 188 H Hemoglobin A1c Lactic Acid Calcium Phosphorus Magnesium Total Bilirubin Direct Bilirubin AST Total Creatine Kinase CK-MB (CK-2) C-Reactive Protein Total Protein Albumin TSH Free T4 04/24/18 04/24/18 04/24/18 16:50 18:40 20:23 WBC RBC Hgb Hct MCHC RDW Plt Count Lymph % (Auto) [place] % (Auto) Lymph # [place] # Seg Neutrophils % Seg Neutrophils # POC ABG pH POC ABG pCO2 POC ABG pO2 Sodium Potassium Chloride Carbon Dioxide BUN Creatinine Glucose POC Glucose 134 H 148 H Hemoglobin A1c Lactic Acid Calcium Phosphorus Magnesium Total Bilirubin Direct Bilirubin AST Total Creatine Kinase CK-MB (CK-2) C-Reactive Protein Total Protein Albumin TSH 47.760 H Free T4 0.10 L 04/24/18 04/25/18 04/25/18 23:14 05:22 05:22 WBC RBC Hgb Hct MCHC 35 H RDW 15.4 H Plt Count Lymph % (Auto) Hubbard % (Auto) Lymph # Hubbard # Seg Neutrophils % Seg Neutrophils # POC ABG pH POC ABG pCO2 POC ABG pO2 Sodium 136 L Potassium Chloride 95.0 L Carbon Dioxide BUN Creatinine Glucose 210 H POC Glucose 145 H Hemoglobin A1c Lactic Acid Calcium Phosphorus Magnesium Total Bilirubin Direct Bilirubin AST Total Creatine Kinase CK-MB (CK-2) C-Reactive Protein Total Protein Albumin TSH Free T4 04/25/18 04/25/18 04/25/18 05:44 12:19 13:06 WBC RBC Hgb Hct MCHC RDW Plt Count Lymph % (Auto) Hubbard % (Auto) Lymph # [place] # Seg Neutrophils % Seg Neutrophils # POC ABG pH 7.471 H POC ABG pCO2 POC ABG pO2 115 H Sodium Potassium Chloride Carbon Dioxide BUN Creatinine Glucose POC Glucose 176 H 231 H Hemoglobin A1c Lactic Acid Calcium Phosphorus Magnesium Total Bilirubin Direct Bilirubin AST Total Creatine Kinase CK-MB (CK-2) C-Reactive Protein Total Protein Albumin TSH Free T4 04/25/18 04/25/18 04/26/18 17:54 20:09 00:01 WBC RBC Hgb Hct MCHC RDW Plt Count Lymph % (Auto) Hubbard % (Auto) Lymph # [place] # Seg Neutrophils % Seg Neutrophils # POC ABG pH POC ABG pCO2 POC ABG pO2 Sodium Potassium Chloride Carbon Dioxide BUN Creatinine Glucose POC Glucose 196 H 119 H 174 H Hemoglobin A1c Lactic Acid Calcium Phosphorus Magnesium Total Bilirubin Direct Bilirubin AST Total Creatine Kinase CK-MB (CK-2) C-Reactive Protein Total Protein Albumin TSH Free T4 04/26/18 04/26/18 04/26/18 05:10 12:03 15:20 WBC RBC Hgb Hct MCHC RDW Plt Count Lymph % (Auto) Hubbard % (Auto) Lymph # [place] # Seg Neutrophils % Seg Neutrophils # POC ABG pH POC ABG pCO2 POC ABG pO2 Sodium Potassium Chloride Carbon Dioxide BUN Creatinine Glucose POC Glucose 212 H 222 H 113 H Hemoglobin A1c Lactic Acid Calcium Phosphorus Magnesium Total Bilirubin Direct Bilirubin AST Total Creatine Kinase CK-MB (CK-2) C-Reactive Protein Total Protein Albumin TSH Free T4 04/26/18 04/26/18 04/27/18 18:08 23:39 05:10 WBC RBC Hgb Hct MCHC RDW Plt Count Lymph % (Auto) Hubbard % (Auto) Lymph # [place] # Seg Neutrophils % Seg Neutrophils # POC ABG pH POC ABG pCO2 POC ABG pO2 Sodium Potassium Chloride Carbon Dioxide BUN Creatinine Glucose POC Glucose 110 H 165 H 137 H Hemoglobin A1c Lactic Acid Calcium Phosphorus Magnesium Total Bilirubin Direct Bilirubin AST Total Creatine Kinase CK-MB (CK-2) C-Reactive Protein Total Protein Albumin TSH Free T4 04/27/18 04/27/18 04/27/18 10:04 11:23 17:36 WBC RBC Hgb Hct MCHC RDW Plt Count Lymph % (Auto) Hubbard % (Auto) Lymph # [place] # Seg Neutrophils % Seg Neutrophils # POC ABG pH POC ABG pCO2 POC ABG pO2 Sodium Potassium Chloride Carbon Dioxide BUN Creatinine Glucose POC Glucose 190 H 258 H 198 H Hemoglobin A1c Lactic Acid Calcium Phosphorus Magnesium Total Bilirubin Direct Bilirubin AST Total Creatine Kinase CK-MB (CK-2) C-Reactive Protein Total Protein Albumin TSH Free T4 04/27/18 04/28/18 04/28/18 23:23 05:19 13:06 WBC RBC Hgb Hct MCHC RDW Plt Count Lymph % (Auto) [place] % (Auto) Lymph # [place] # Seg Neutrophils % Seg Neutrophils # POC ABG pH POC ABG pCO2 POC ABG pO2 Sodium Potassium Chloride Carbon Dioxide BUN Creatinine Glucose POC Glucose 131 H 178 H 194 H Hemoglobin A1c Lactic Acid Calcium Phosphorus Magnesium Total Bilirubin Direct Bilirubin AST Total Creatine Kinase CK-MB (CK-2) C-Reactive Protein Total Protein Albumin TSH Free T4 04/28/18 04/29/18 04/29/18 16:59 00:24 05:49 WBC RBC Hgb Hct MCHC RDW Plt Count Lymph % (Auto) [place] % (Auto) Lymph # [place] # Seg Neutrophils % Seg Neutrophils # POC ABG pH POC ABG pCO2 POC ABG pO2 Sodium Potassium Chloride Carbon Dioxide BUN Creatinine Glucose POC Glucose 155 H 166 H 226 H Hemoglobin A1c Lactic Acid Calcium Phosphorus Magnesium Total Bilirubin Direct Bilirubin AST Total Creatine Kinase CK-MB (CK-2) C-Reactive Protein Total Protein Albumin TSH Free T4 04/29/18 04/29/18 04/29/18 12:12 13:29 13:29 WBC RBC Hgb Hct 34.8 L MCHC RDW Plt Count Lymph % (Auto) [place] % (Auto) 9.8 H Lymph # [place] # Seg Neutrophils % Seg Neutrophils # POC ABG pH POC ABG pCO2 POC ABG pO2 Sodium 135 L Potassium Chloride Carbon Dioxide BUN Creatinine Glucose 214 H POC Glucose 217 H Hemoglobin A1c Lactic Acid Calcium Phosphorus Magnesium Total Bilirubin Direct Bilirubin AST Total Creatine Kinase CK-MB (CK-2) C-Reactive Protein Total Protein Albumin TSH Free T4 04/29/18 04/29/18 04/30/18 21:56 23:49 05:15 WBC RBC Hgb Hct MCHC RDW Plt Count Lymph % (Auto) [place] % (Auto) Lymph # [place] # Seg Neutrophils % Seg Neutrophils # POC ABG pH POC ABG pCO2 POC ABG pO2 Sodium Potassium Chloride Carbon Dioxide BUN Creatinine Glucose POC Glucose 129 H 148 H 113 H Hemoglobin A1c Lactic Acid Calcium Phosphorus Magnesium Total Bilirubin Direct Bilirubin AST Total Creatine Kinase CK-MB (CK-2) C-Reactive Protein Total Protein Albumin TSH Free T4 04/30/18 04/30/18 04/30/18 05:28 12:10 18:12 WBC RBC Hgb Hct MCHC RDW Plt Count Lymph % (Auto) [place] % (Auto) Lymph # [place] # Seg Neutrophils % Seg Neutrophils # POC ABG pH POC ABG pCO2 POC ABG pO2 Sodium Potassium Chloride Carbon Dioxide BUN Creatinine Glucose POC Glucose 118 H 159 H 149 H Hemoglobin A1c Lactic Acid Calcium Phosphorus Magnesium Total Bilirubin Direct Bilirubin AST Total Creatine Kinase CK-MB (CK-2) C-Reactive Protein Total Protein Albumin TSH Free T4 03/02/0604/30/18 05/01/18 20:12 23:31 05:48 WBC RBC Hgb Hct MCHC RDW Plt Count Lymph % (Auto) [place] % (Auto) Lymph # [place] # Seg Neutrophils % Seg Neutrophils # POC ABG pH POC ABG pCO2 POC ABG pO2 Sodium Potassium Chloride Carbon Dioxide BUN Creatinine Glucose POC Glucose 187 H 208 H 172 H Hemoglobin A1c Lactic Acid Calcium Phosphorus Magnesium Total Bilirubin Direct Bilirubin AST Total Creatine Kinase CK-MB (CK-2) C-Reactive Protein Total Protein Albumin TSH Free T4 05/01/18 05/01/18 05/01/18 12:25 15:05 18:06 WBC 13.3 H RBC Hgb 11.3 L Hct 33.1 L MCHC RDW Plt Count Lymph % (Auto) 9.8 L Hubbard % (Auto) 7.7 H Lymph # Hubbard # 1.0 H Seg Neutrophils % 81.9 H Seg Neutrophils # 10.9 H POC ABG pH POC ABG pCO2 POC ABG pO2 Sodium Potassium Chloride Carbon Dioxide BUN Creatinine Glucose POC Glucose 151 H 227 H Hemoglobin A1c Lactic Acid Calcium Phosphorus Magnesium Total Bilirubin Direct Bilirubin AST Total Creatine Kinase CK-MB (CK-2) C-Reactive Protein Total Protein Albumin TSH Free T4 05/01/18 05/02/18 05/02/18 23:24 04:56 04:56 WBC 12.9 H RBC Hgb 10.9 L Hct 32.8 L MCHC RDW 15.5 H Plt Count Lymph % (Auto) [place] % (Auto) Lymph # [place] # Seg Neutrophils % Seg Neutrophils # POC ABG pH POC ABG pCO2 POC ABG pO2 Sodium 136 L Potassium Chloride 94.8 L Carbon Dioxide BUN Creatinine Glucose 175 H POC Glucose 157 H Hemoglobin A1c Lactic Acid Calcium Phosphorus Magnesium Total Bilirubin Direct Bilirubin AST Total Creatine Kinase CK-MB (CK-2) C-Reactive Protein Total Protein Albumin TSH Free T4 05/02/18 05/02/18 05/02/18 05:24 12:36 18:14 WBC RBC Hgb Hct MCHC RDW Plt Count Lymph % (Auto) [place] % (Auto) Lymph # [place] # Seg Neutrophils % Seg Neutrophils # POC ABG pH POC ABG pCO2 POC ABG pO2 Sodium Potassium Chloride Carbon Dioxide BUN Creatinine Glucose POC Glucose 178 H 269 H 209 H Hemoglobin A1c Lactic Acid Calcium Phosphorus Magnesium Total Bilirubin Direct Bilirubin AST Total Creatine Kinase CK-MB (CK-2) C-Reactive Protein Total Protein Albumin TSH Free T4 05/03/18 05/03/18 05/03/18 00:15 03:20 03:20 WBC RBC 3.54 L Hgb 11.0 L Hct 32.0 L MCHC 35 H RDW 15.5 H Plt Count Lymph % (Auto) [place] % (Auto) Lymph # [place] # Seg Neutrophils % Seg Neutrophils # POC ABG pH POC ABG pCO2 POC ABG pO2 Sodium 135 L Potassium Chloride 95.8 L Carbon Dioxide BUN Creatinine 0.7 L Glucose 226 H POC Glucose 227 H Hemoglobin A1c Lactic Acid Calcium Phosphorus Magnesium Total Bilirubin Direct Bilirubin AST Total Creatine Kinase CK-MB (CK-2) C-Reactive Protein Total Protein Albumin TSH Free T4 05/03/18 05/03/18 05:26 08:53 WBC RBC Hgb Hct MCHC RDW Plt Count Lymph % (Auto) [place] % (Auto) Lymph # [place] # Seg Neutrophils % Seg Neutrophils # POC ABG pH POC ABG pCO2 POC ABG pO2 Sodium Potassium Chloride Carbon Dioxide BUN Creatinine Glucose POC Glucose 194 H 216 H Hemoglobin A1c Lactic Acid Calcium Phosphorus Magnesium Total Bilirubin Direct Bilirubin AST Total Creatine Kinase CK-MB (CK-2) C-Reactive Protein Total Protein Albumin TSH Free T4 Allied health notes reviewed: RT
[2018-05-03] MEDS: TRANSDERM-SCOP TD SCH (12:19)
[2018-05-03] MEDS: MAXIPIME/NS 2 GM/100 ML 2 GM/100 ML BAG IV SCH ×2 (12:25→22:05)
--- NOTE | 2018-05-03 16:00 | Progress Note ---
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 SWITCHED TO PO /Hypokalemia -resolved s/p repletion, will cont to monitor /Severe sepsis 2/2 aspiration PNA -resolved -off antibiotics FOLLOWING TREATMENT WITH ROCEPHIN AND FLAGYL /Aspiration Pneumonia -completed antibiotics /DM II with hyperglycemia - Was hypoglycemic on admission - BG improved - Cont current insulin regimen and adjust as needed /Seizure, new onset -probably 2/2 hypoglycemia recorded by EMS staff prior to admission -stable on Keppra -cont seizure precautions /Critical Illness Myopathy -cont supportive care /Thrombocytopenia -level improved, will monitor /Transaminitis -levels improved -Hepatitis panel neg -Abd US neg /Rhabdomyolysis -improved /Hypophosphatemia -resolved /Hypomagenesemia -Replaced /HTN -uncontrolled, meds adjusted /Moderate protein calorie malnutrition -on tube feeding -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 The high probability of a clinically significant, sudden or life threatening deterioration of the [Neurology, Pulmonary] system(s) required my full and direct attention, intervention and personal management. The aggregate critical care time was [35] minutes. This time is in addition to time spent performing reported procedures but includes the following: [x] Data Review and interpretation [x] Patient assessment and monitoring of vital signs [x] Documentation [x] Medication orders and management Brief History: 78-year-old male patient with significant history of hypertension diabetes coronary artery disease was admitted through emergency room with history of unresponsiveness at home for unknown Duration of time. At that time he had hypoglycemia and seizure activity, Patient was unable to protect his airway and was intubated on ventilatory support admitted to ICU also with concern of Aspiration Pneumonia. Neuro: Patient had CT scan 2 days does not show acute abnormality. MR brain also negative for acute findings. 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 Pulmonary: The patient has been maintained on mechanical ventilator, he's not been able to be weaned off the vent. The family wants to continue aggressive care. patient underwent Trach and Peg on 04/30/18 FEN; his electrolytes namely potassium and phosphate were repleted. Initially was hypoglycemic, which now resolved ID; the patient received empiric antibiotics for pneumonia, Cultures including blood, urine and sputum has remained without growth. Musculoskeletal; Traumatic Rhabdomyolysis; status post IV fluids and improved, His medications were optimized for his chronic conditions CXR: Concerning for Focal RLL infiltrate initially, repeat done 04/23/18 shows no acute pathology. Disposition: Patient is awaiting transfer to LTAC Hospitalist Physical VITAL SIGNS: Reviewed. GENERAL: The patient appeared well nourished and normally developed. Continues on mechanical ventilation with trach. HEAD: No signs of head trauma. EYES: Pupils are equal. Sluggish response to light.. EARS: Unable to assess MOUTH: Trach NECK: No adenopathy, no JVD. CHEST: Chest with clear breath sounds bilaterally. No wheezes, rales, or rhonchi. CARDIAC: Bradycardia with regular rate. S1 and S2, without murmurs, gallops, or rubs. VASCULAR: No Edema. Peripheral pulses normal and equal in all extremities. ABDOMEN: Peg in placed. Soft, without detectable tenderness. No sign of distention. No rebound or guarding, and no masses palpated. Bowel Sounds normal. MUSCULOSKELETAL: Extremities without clubbing, cyanosis or edema. NEUROLOGIC EXAM: awake, moves all ext. PSYCHIATRIC: Unable to assess SKIN: No rash or lesions. Subjective Date of service: 05/03/18 Principal diagnosis: Ac Hypoxemic Resp Failure; Seizures; Encephalopathy; DM II; Rhabdomyolysis Interval history: Patient seen and examined, No overnight issues reported. Patient remains off sedation and not responsive to commend but patient is awake. Objective - Constitutional Vitals: Vital Signs - 12hr 05/03/18 05/03/18 05/03/18 04:00 04:15 04:31 Temperature Pulse Rate 81 80 83 Pulse Rate [ 84 Apical] Pulse Rate [ 84 From Monitor] Pulse Rate [ 72 Right Dorsalis Pedis] Respiratory 12 11 L 16 Rate Blood Pressure 123/71 129/61 123/71 O2 Sat by Pulse 100 100 100 Oximetry 05/03/18 05/03/18 05/03/18 04:45 05:00 05:15 Temperature Pulse Rate 88 90 85 Pulse Rate [ Apical] Pulse Rate [ From Monitor] Pulse Rate [ Right Dorsalis Pedis] Respiratory 13 18 13 Rate Blood Pressure 123/71 128/63 128/63 O2 Sat by Pulse 98 99 100 Oximetry 05/03/18 05/03/18 05/03/18 05:31 05:45 06:01 Temperature Pulse Rate 82 83 81 Pulse Rate [ Apical] Pulse Rate [ From Monitor] Pulse Rate [ Right Dorsalis Pedis] Respiratory 14 14 17 Rate Blood Pressure 128/63 138/54 138/54 O2 Sat by Pulse 100 100 99 Oximetry 05/03/18 05/03/18 05/03/18 06:15 06:31 06:45 Temperature Pulse Rate 84 78 86 Pulse Rate [ Apical] Pulse Rate [ From Monitor] Pulse Rate [ Right Dorsalis Pedis] Respiratory 21 18 18 Rate Blood Pressure 150/62 150/62 150/62 O2 Sat by Pulse 100 100 99 Oximetry 05/03/18 05/03/18 05/03/18 07:01 07:15 07:30 Temperature Pulse Rate 74 75 90 Pulse Rate [ Apical] Pulse Rate [ From Monitor] Pulse Rate [ Right Dorsalis Pedis] Respiratory 13 18 14 Rate Blood Pressure 150/62 150/62 150/62 O2 Sat by Pulse 100 100 100 Oximetry 05/03/18 05/03/18 05/03/18 07:45 08:00 08:15 Temperature 98.6 F Pulse Rate 77 84 84 Pulse Rate [ 84 Apical] Pulse Rate [ From Monitor] Pulse Rate [ Right Dorsalis Pedis] Respiratory 14 15 22 Rate Blood Pressure 141/62 141/62 134/58 O2 Sat by Pulse 100 100 100 Oximetry 05/03/18 05/03/18 05/03/18 08:28 08:31 08:43 Temperature Pulse Rate 76 84 88 Pulse Rate [ Apical] Pulse Rate [ From Monitor] Pulse Rate [ Right Dorsalis Pedis] Respiratory 22 12 Rate Blood Pressure 134/58 134/58 138/60 O2 Sat by Pulse 100 100 100 Oximetry 05/03/18 05/03/18 05/03/18 08:45 08:51 09:01 Temperature Pulse Rate 89 86 86 Pulse Rate [ Apical] Pulse Rate [ From Monitor] Pulse Rate [ Right Dorsalis Pedis] Respiratory 14 12 Rate Blood Pressure 138/60 138/60 138/60 O2 Sat by Pulse 100 100 Oximetry 05/03/18 05/03/18 05/03/18 09:15 09:30 09:45 Temperature Pulse Rate 86 90 90 Pulse Rate [ Apical] Pulse Rate [ From Monitor] Pulse Rate [ Right Dorsalis Pedis] Respiratory 11 L 21 17 Rate Blood Pressure 138/60 138/60 O2 Sat by Pulse 99 99 100 Oximetry 05/03/18 05/03/18 05/03/18 10:00 10:15 10:16 Temperature Pulse Rate 92 H 88 85 Pulse Rate [ Apical] Pulse Rate [ From Monitor] Pulse Rate [ Right Dorsalis Pedis] Respiratory 16 10 L Rate Blood Pressure 146/72 124/68 124/68 O2 Sat by Pulse 100 99 Oximetry 05/03/18 05/03/18 05/03/18 10:30 10:45 11:01 Temperature Pulse Rate 89 88 88 Pulse Rate [ Apical] Pulse Rate [ From Monitor] Pulse Rate [ Right Dorsalis Pedis] Respiratory 9 L 19 15 Rate Blood Pressure 133/73 133/73 133/73 O2 Sat by Pulse 99 100 99 Oximetry 05/03/18 05/03/18 05/03/18 11:15 11:31 11:45 Temperature Pulse Rate 89 90 83 Pulse Rate [ Apical] Pulse Rate [ From Monitor] Pulse Rate [ Right Dorsalis Pedis] Respiratory 14 25 H 22 Rate Blood Pressure 143/70 139/68 139/68 O2 Sat by Pulse 98 99 99 Oximetry 05/03/18 05/03/18 05/03/18 11:59 12:00 12:01 Temperature 100.3 F H Pulse Rate 83 83 Pulse Rate [ Apical] Pulse Rate [ From Monitor] Pulse Rate [ Right Dorsalis Pedis] Respiratory 29 H Rate Blood Pressure 132/64 O2 Sat by Pulse 98 Oximetry 05/03/18 05/03/18 05/03/18 12:15 12:19 12:31 Temperature Pulse Rate 97 H 90 86 Pulse Rate [ Apical] Pulse Rate [ From Monitor] Pulse Rate [ Right Dorsalis Pedis] Respiratory 16 28 H 25 H Rate Blood Pressure 132/64 132/64 132/72 O2 Sat by Pulse 98 100 100 Oximetry 05/03/18 05/03/18 05/03/18 12:45 13:01 13:15 Temperature Pulse Rate 86 88 91 H Pulse Rate [ Apical] Pulse Rate [ From Monitor] Pulse Rate [ Right Dorsalis Pedis] Respiratory 23 22 15 Rate Blood Pressure 132/72 132/73 132/73 O2 Sat by Pulse 100 100 100 Oximetry 05/03/18 05/03/18 05/03/18 13:31 13:45 14:01 Temperature Pulse Rate 94 H 92 H 92 H Pulse Rate [ Apical] Pulse Rate [ From Monitor] Pulse Rate [ Right Dorsalis Pedis] Respiratory 19 12 11 L Rate Blood Pressure 132/73 142/70 132/73 O2 Sat by Pulse 99 100 100 Oximetry 05/03/18 05/03/18 05/03/18 14:15 14:30 14:45 Temperature Pulse Rate 90 91 H 90 Pulse Rate [ Apical] Pulse Rate [ From Monitor] Pulse Rate [ Right Dorsalis Pedis] Respiratory 19 10 L 20 Rate Blood Pressure 146/66 132/73 146/66 O2 Sat by Pulse 100 100 100 Oximetry 05/03/18 05/03/18 05/03/18 15:01 15:15 15:31 Temperature Pulse Rate 91 H 88 92 H Pulse Rate [ Apical] Pulse Rate [ From Monitor] Pulse Rate [ Right Dorsalis Pedis] Respiratory 16 25 H 11 L Rate Blood Pressure 146/66 130/80 130/80 O2 Sat by Pulse 98 100 100 Oximetry - Labs CBC & Chem 7: 05/03/18 03:20 05/03/18 03:20 Labs: Abnormal lab results 05/02/18 05/03/18 05/03/18 Range/Units 18:14 00:15 03:20 RBC 3.54 L (3.65-5.03) M/mm3 Hgb 11.0 L (11.8-15.2) gm/dl Hct 32.0 L (35.5-45.6) % MCHC 35 H (32-34) % RDW 15.5 H (13.2-15.2) % Sodium (137-145) mmol/L Chloride (98-107) mmol/L Creatinine (0.8-1.5) mg/dL Glucose (75-100) mg/dL POC Glucose 209 H 227 H (70-105) 05/03/18 05/03/18 05/03/18 Range/Units 03:20 05:26 08:53 RBC (3.65-5.03) M/mm3 Hgb (11.8-15.2) gm/dl Hct (35.5-45.6) % MCHC (32-34) % RDW (13.2-15.2) % Sodium 135 L (137-145) mmol/L Chloride 95.8 L (98-107) mmol/L Creatinine 0.7 L (0.8-1.5) mg/dL Glucose 226 H (75-100) mg/dL POC Glucose 194 H 216 H (70-105) 05/03/18 Range/Units 11:46 RBC (3.65-5.03) M/mm3 Hgb (11.8-15.2) gm/dl Hct (35.5-45.6) % MCHC (32-34) % RDW (13.2-15.2) % Sodium (137-145) mmol/L Chloride (98-107) mmol/L Creatinine (0.8-1.5) mg/dL Glucose (75-100) mg/dL POC Glucose 260 H (70-105)
[2018-05-03] MEDS: TYLENOL PO PRN (22:58)
[2018-05-03] MEDS: MIRALAX 3350 PO SCH (23:00)
[2018-05-04] MEDS: HumaLOG SUB-Q SCH ×4 (05:48→17:46)
[2018-05-04] MEDS: SYNTHROID PO SCH (05:51)
[2018-05-04] MEDS: APRESOLINE PO SCH ×2 (05:52→14:41)
[2018-05-04] MEDS: MAXIPIME/NS 2 GM/100 ML 2 GM/100 ML BAG IV SCH ×2 (09:11→23:40)
[2018-05-04] MEDS: HumuLIN R SUB-Q SCH ×2 (09:11→14:40)
[2018-05-04] MEDS: LANTUS SUB-Q SCH (09:12)
[2018-05-04] MEDS: PEPCID PO SCH ×2 (09:12→23:40)
[2018-05-04] MEDS: SODIUM CHLORIDE FLUSH SYRINGE 10 ML IV SCH (09:12)
[2018-05-04] MEDS: NORVASC FEEDTUBE SCH (09:13)
[2018-05-04] MEDS: COLACE FEEDTUBE SCH ×2 (09:13→23:39)
[2018-05-04] MEDS: PROVIGIL PO SCH (09:13)
[2018-05-04] MEDS: KEPPRA PO SCH ×2 (09:14→23:40)
[2018-05-04] MEDS: LOVENOX SUB-Q SCH (09:14)
[2018-05-04] MEDS ORDERED: SODIUM BICARBONATE FEEDTUBE PRN ×2 (12:03→13:47)
[2018-05-04] MEDS ORDERED: SIMPLE SYRUP FEEDTUBE PRN ×4 (12:03→13:47)
[2018-05-04] MEDS ORDERED: PANCREAZE DR 10,500 UNIT FEEDTUBE PRN ×2 (12:03→13:47)
--- NOTE | 2018-05-04 13:03 | Progress Note ---
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 SWITCHED TO PO /Hypokalemia -resolved s/p repletion, will cont to monitor /Severe sepsis 2/2 aspiration PNA -resolved -off antibiotics FOLLOWING TREATMENT WITH ROCEPHIN AND FLAGYL /Aspiration Pneumonia -completed antibiotics /DM II with hyperglycemia - Was hypoglycemic on admission - BG improved - Cont current insulin regimen and adjust as needed /Seizure, new onset -probably 2/2 hypoglycemia recorded by EMS staff prior to admission -stable on Keppra -cont seizure precautions /Critical Illness Myopathy -cont supportive care /Thrombocytopenia -level improved, will monitor /Transaminitis -levels improved -Hepatitis panel neg -Abd US neg /Rhabdomyolysis -improved /Hypophosphatemia -resolved /Hypomagenesemia -Replaced /HTN -uncontrolled, meds adjusted /Moderate protein calorie malnutrition -on tube feeding -peoplesoft developer following Morbid obesity: Supportive care DVT/GI prophylaxis with Lovenox and famotidine Poor Prognosis LTAC eval- Referral made. The high probability of a clinically significant, sudden or life threatening deterioration of the [Neurology, Pulmonary] system(s) required my full and direct attention, intervention and personal management. The aggregate critical care time was [35] minutes. This time is in addition to time spent performing r eported procedures but includes the following: [x] Data Review and interpretation [x] Patient assessment and monitoring of vital signs [x] Documentation [x] Medication orders and management Brief History: 78-year-old male patient with significant history of hypertension diabetes coronary artery disease was admitted through emergency room with history of unresponsiveness at home for unknown Duration of time. At that time he had hypoglycemia and seizure activity, Patient was unable to protect his airway and was intubated on ventilatory support admitted to ICU also with concern of Aspiration Pneumonia. Neuro: Patient had CT scan 2 days does not show acute abnormality. MR brain also negative for acute findings. 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 Pulmonary: The patient has been maintained on mechanical ventilator, he's not been able to be weaned off the vent. The family wants to continue aggressive care. patient underwent Trach and Peg on 04/30/18 FEN; his electrolytes namely potassium and phosphate were repleted. Initially was hypoglycemic, which now resolved ID; the patient received empiric antibiotics for pneumonia, Cultures including blood, urine and sputum has remained without growth. Musculoskeletal; Traumatic Rhabdomyolysis; status post IV fluids and improved, His medications were optimized for his chronic conditions CXR: Concerning for Focal RLL infiltrate initially, repeat done 04/23/18 shows no acute pathology. Disposition: Patient is awaiting transfer to LTAC Hospitalist Physical VITAL SIGNS: Reviewed. GENERAL: The patient appeared well nourished and normally developed. Continues on mechanical ventilation with trach. HEAD: No signs of head trauma. EYES: Pupils are equal. Sluggish response to light.. EARS: Unable to assess MOUTH: Trach NECK: No adenopathy, no JVD. CHEST: Chest with clear breath sounds bilaterally. No wheezes, rales, or rhonchi. CARDIAC: Bradycardia with regular rate. S1 and S2, without murmurs, gallops, or rubs. VASCULAR: No Edema. Peripheral pulses normal and equal in all extremities. ABDOMEN: Peg in placed. Soft, without detectable tenderness. No sign of distention. No rebound or guarding, and no masses palpated. Bowel Sounds normal. MUSCULOSKELETAL: Extremities without clubbing, cyanosis or edema. NEUROLOGIC EXAM: awake, moves all ext. PSYCHIATRIC: Unable to assess SKIN: No rash or lesions. Subjective Date of service: 05/04/18 Principal diagnosis: Ac Hypoxemic Resp Failure; Seizures; Encephalopathy; DM II; Rhabdomyolysis Interval history: Patient seen and examined, No overnight issues reported. Patient remains off sedation and not responsive to commend but patient is awake. breathing with trach on vent Objective - Constitutional Vitals: Vital Signs - 12hr 05/04/18 05/04/18 05/04/18 01:15 01:31 01:45 Temperature Pulse Rate 72 70 72 Respiratory 13 16 19 Rate Blood Pressure 120/66 116/57 116/57 O2 Sat by Pulse 99 97 98 Oximetry O2 Sat by Pulse Oximetry [ Assessment] 05/04/18 05/04/18 05/04/18 02:01 02:15 02:31 Temperature Pulse Rate 72 71 78 Respiratory 21 20 15 Rate Blood Pressure 122/60 122/60 122/60 O2 Sat by Pulse 99 Oximetry O2 Sat by Pulse Oximetry [ Assessment] 05/04/18 05/04/18 05/04/18 02:45 03:01 03:15 Temperature Pulse Rate 73 70 65 Respiratory 12 11 L 14 Rate Blood Pressure 122/60 122/60 122/60 O2 Sat by Pulse 100 100 99 Oximetry O2 Sat by Pulse Oximetry [ Assessment] 05/04/18 05/04/18 05/04/18 03:31 03:35 03:45 Temperature 99.8 F H Pulse Rate 70 78 Respiratory 17 19 Rate Blood Pressure 122/60 136/67 O2 Sat by Pulse 100 99 Oximetry O2 Sat by Pulse Oximetry [ Assessment] 05/04/18 05/04/18 05/04/18 04:01 04:15 04:31 Temperature Pulse Rate 69 62 61 Respiratory 22 15 16 Rate Blood Pressure 124/68 124/68 117/58 O2 Sat by Pulse 99 100 100 Oximetry O2 Sat by Pulse Oximetry [ Assessment] 05/04/18 05/04/18 05/04/18 04:43 04:45 04:54 Temperature Pulse Rate 62 61 Respiratory 15 Rate Blood Pressure 117/58 117/58 O2 Sat by Pulse 100 100 Oximetry O2 Sat by Pulse 100 Oximetry [ Assessment] 05/04/18 05/04/18 05/04/18 05:01 05:15 05:30 Temperature Pulse Rate 72 75 72 Respiratory 18 20 20 Rate Blood Pressure 127/62 127/62 138/66 O2 Sat by Pulse 97 100 95 Oximetry O2 Sat by Pulse Oximetry [ Assessment] 05/04/18 05/04/18 05/04/18 05:45 05:52 06:01 Temperature Pulse Rate 67 87 64 Respiratory 15 15 Rate Blood Pressure 138/66 134/65 127/63 O2 Sat by Pulse 99 96 Oximetry O2 Sat by Pulse Oximetry [ Assessment] 05/04/18 05/04/18 05/04/18 06:15 06:30 06:45 Temperature Pulse Rate 66 65 65 Respiratory 16 21 16 Rate Blood Pressure 127/63 139/69 139/69 O2 Sat by Pulse 98 99 100 Oximetry O2 Sat by Pulse Oximetry [ Assessment] 05/04/18 05/04/18 05/04/18 07:01 07:15 07:31 Temperature Pulse Rate 77 75 75 Respiratory 21 14 20 Rate Blood Pressure 143/72 143/72 143/72 O2 Sat by Pulse 99 98 Oximetry O2 Sat by Pulse Oximetry [ Assessment] 05/04/18 05/04/18 05/04/18 07:45 08:01 08:15 Temperature Pulse Rate 62 62 60 Respiratory 16 17 14 Rate Blood Pressure 142/56 116/57 116/57 O2 Sat by Pulse 100 97 99 Oximetry O2 Sat by Pulse Oximetry [ Assessment] 05/04/18 05/04/18 05/04/18 08:31 08:45 09:01 Temperature Pulse Rate 60 67 62 Respiratory 15 17 17 Rate Blood Pressure 132/59 132/59 116/57 O2 Sat by Pulse 98 98 97 Oximetry O2 Sat by Pulse Oximetry [ Assessment] 05/04/18 05/04/18 05/04/18 09:13 09:15 09:31 Temperature Pulse Rate 62 62 73 Respiratory 17 25 H Rate Blood Pressure 116/57 116/57 117/60 O2 Sat by Pulse 99 97 Oximetry O2 Sat by Pulse Oximetry [ Assessment] 05/04/18 05/04/18 05/04/18 09:45 10:00 10:15 Temperature Pulse Rate 73 71 72 Respiratory 20 27 H 24 Rate Blood Pressure 117/60 131/60 131/60 O2 Sat by Pulse 99 96 99 Oximetry O2 Sat by Pulse Oximetry [ Assessment] 05/04/18 05/04/18 10:31 11:25 Temperature Pulse Rate 77 Respiratory 25 H Rate Blood Pressure 138/55 O2 Sat by Pulse 91 Oximetry O2 Sat by Pulse 99 Oximetry [ Assessment] - Labs CBC & Chem 7: 05/05/18 04:27 05/05/18 04:27 Labs: Abnormal lab results 05/03/18 05/04/18 05/04/18 Range/Units 18:00 00:29 05:07 POC Glucose 261 H 226 H 212 H (70-105) 05/04/18 Range/Units 12:16 POC Glucose 239 H (70-105)
--- NOTE | 2018-05-04 17:01 | Progress Note ---
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 daily - prn CXR's & ABG's at this point (post trach CXR reviewed and addressed; no acute process) - follow clinically of AB's and follow blood cultures - continue to wean supplemental oxygen to keep O2 sats > 90% - continue bronchodilators with pulmonary hygiene per RT - VAP bundle addressed - continue daily SAT's - titrate sedatives for RASS 0 to -1 (on hold re: AMS) - neurology evaluation ongoing - continue GI & VTE prophylaxis - azotemia resolved - continue AED's (Keppra) (will consider dose reduction re: somnolence) - continue pertinent home med's - continue enteral nutrition as tolerated - continue accuchecks q6h with glycemic control per SSI for target BG 140-180 mg/dL - will likely need outpatient PSG to evaluate JOE - continue other care per attending / other strategy consultant's ....... re-evaluate in am & prn CODE STATUS: FULL CODE The high probability of a clinically significant, sudden or life-threatening deterioration of the [cardiac, neurology] system(s) required my full and direct attention, intervention and personal management. The aggregate critical care time was [30] minutes without overlap. Time includes spent on; [x] Data Review and interpretation [x] Patient assessment and monitoring of vital signs [x] Documentation [x] Medication orders and management Subjective Date of service: 05/04/18 Principal diagnosis: Ac Hypoxemic Resp Failure; Seizures; Encephalopathy; DM II; Rhabdomyolysis Interval history: Patient is seen today for: Acute Hypoxemic Respiratory Failure; New Onset Seizures (presumed secondary to Hypoglycemia); Acute Encephalopathy (Toxic -Metabolic); Diabetes Type II; Rhabdomyolysis Seen and examined at bedside; 24hour events reviewed; nursing and respiratory care staff consulted; no adverse overnight events reported to me; resting peacefully in bed; on T-piece and tolerating decebntly; secretions copious today; no emesis or overt aspiration; encephalopathy is persistent Objective Vital Signs - 12hr 05/04/18 05/04/18 05/04/18 05:01 05:15 05:30 Temperature Pulse Rate 72 75 72 Pulse Rate [ Apical] Pulse Rate [ From Monitor] Respiratory 18 20 20 Rate Blood Pressure 127/62 127/62 138/66 O2 Sat by Pulse 97 100 95 Oximetry O2 Sat by Pulse Oximetry [ Assessment] 05/04/18 05/04/18 05/04/18 05:45 05:52 06:01 Temperature Pulse Rate 67 87 64 Pulse Rate [ Apical] Pulse Rate [ From Monitor] Respiratory 15 15 Rate Blood Pressure 138/66 134/65 127/63 O2 Sat by Pulse 99 96 Oximetry O2 Sat by Pulse Oximetry [ Assessment] 05/04/18 05/04/18 05/04/18 06:15 06:30 06:45 Temperature Pulse Rate 66 65 65 Pulse Rate [ Apical] Pulse Rate [ From Monitor] Respiratory 16 21 16 Rate Blood Pressure 127/63 139/69 139/69 O2 Sat by Pulse 98 99 100 Oximetry O2 Sat by Pulse Oximetry [ Assessment] 05/04/18 05/04/18 05/04/18 07:01 07:15 07:31 Temperature Pulse Rate 77 75 75 Pulse Rate [ Apical] Pulse Rate [ From Monitor] Respiratory 21 14 20 Rate Blood Pressure 143/72 143/72 143/72 O2 Sat by Pulse 99 98 Oximetry O2 Sat by Pulse Oximetry [ Assessment] 05/04/18 05/04/18 05/04/18 07:45 08:00 08:01 Temperature 98.5 F Pulse Rate 62 62 Pulse Rate [ 62 Apical] Pulse Rate [ 62 From Monitor] Respiratory 16 17 17 Rate Blood Pressure 142/56 116/57 O2 Sat by Pulse 100 97 97 Oximetry O2 Sat by Pulse Oximetry [ Assessment] 05/04/18 05/04/18 05/04/18 08:15 08:31 08:45 Temperature Pulse Rate 60 60 67 Pulse Rate [ Apical] Pulse Rate [ From Monitor] Respiratory 14 15 17 Rate Blood Pressure 116/57 132/59 132/59 O2 Sat by Pulse 99 98 98 Oximetry O2 Sat by Pulse Oximetry [ Assessment] 05/04/18 05/04/18 05/04/18 09:01 09:13 09:15 Temperature Pulse Rate 62 62 62 Pulse Rate [ Apical] Pulse Rate [ From Monitor] Respiratory 17 17 Rate Blood Pressure 116/57 116/57 116/57 O2 Sat by Pulse 97 99 Oximetry O2 Sat by Pulse Oximetry [ Assessment] 05/04/18 05/04/18 05/04/18 09:31 09:45 10:00 Temperature Pulse Rate 73 73 71 Pulse Rate [ Apical] Pulse Rate [ From Monitor] Respiratory 25 H 20 27 H Rate Blood Pressure 117/60 117/60 131/60 O2 Sat by Pulse 97 99 96 Oximetry O2 Sat by Pulse Oximetry [ Assessment] 05/04/18 05/04/18 05/04/18 10:15 10:31 10:45 Temperature Pulse Rate 72 77 73 Pulse Rate [ Apical] Pulse Rate [ From Monitor] Respiratory 24 25 H 9 L Rate Blood Pressure 131/60 138/55 138/55 O2 Sat by Pulse 99 91 97 Oximetry O2 Sat by Pulse Oximetry [ Assessment] 05/04/18 05/04/18 05/04/18 11:01 11:15 11:25 Temperature Pulse Rate 77 74 Pulse Rate [ Apical] Pulse Rate [ From Monitor] Respiratory 26 H 27 H Rate Blood Pressure 138/55 149/62 O2 Sat by Pulse 97 99 Oximetry O2 Sat by Pulse 99 Oximetry [ Assessment] 05/04/18 05/04/18 05/04/18 11:31 11:45 12:00 Temperature 98.7 F Pulse Rate 76 68 77 Pulse Rate [ 77 Apical] Pulse Rate [ 77 From Monitor] Respiratory 16 15 12 Rate Blood Pressure 149/62 149/62 128/83 O2 Sat by Pulse 96 100 97 Oximetry O2 Sat by Pulse Oximetry [ Assessment] 05/04/18 05/04/18 05/04/18 12:15 12:31 12:45 Temperature Pulse Rate 76 67 66 Pulse Rate [ Apical] Pulse Rate [ From Monitor] Respiratory 16 22 23 Rate Blood Pressure 149/62 120/59 120/59 O2 Sat by Pulse 100 98 99 Oximetry O2 Sat by Pulse Oximetry [ Assessment] 05/04/18 05/04/18 05/04/18 13:01 13:15 13:31 Temperature Pulse Rate 79 71 72 Pulse Rate [ Apical] Pulse Rate [ From Monitor] Respiratory 19 24 17 Rate Blood Pressure 119/65 119/65 126/62 O2 Sat by Pulse 97 100 95 Oximetry O2 Sat by Pulse Oximetry [ Assessment] 0305/04/18 05/04/18 13:45 14:01 14:15 Temperature Pulse Rate 74 89 77 Pulse Rate [ Apical] Pulse Rate [ From Monitor] Respiratory 18 17 10 L Rate Blood Pressure 126/62 126/62 126/62 O2 Sat by Pulse 99 97 Oximetry O2 Sat by Pulse Oximetry [ Assessment] 05/04/18 05/04/18 05/04/18 14:31 14:41 14:45 Temperature Pulse Rate 75 75 72 Pulse Rate [ Apical] Pulse Rate [ From Monitor] Respiratory 18 19 Rate Blood Pressure 126/62 124/64 126/62 O2 Sat by Pulse 97 Oximetry O2 Sat by Pulse Oximetry [ Assessment] 05/04/18 05/04/18 05/04/18 15:01 15:15 15:30 Temperature Pulse Rate 84 76 79 Pulse Rate [ Apical] Pulse Rate [ From Monitor] Respiratory 13 13 16 Rate Blood Pressure 124/64 124/64 131/59 O2 Sat by Pulse 98 99 97 Oximetry O2 Sat by Pulse Oximetry [ Assessment] 05/04/18 05/04/18 05/04/18 15:45 16:00 16:01 Temperature 99.5 F Pulse Rate 81 72 78 Pulse Rate [ 78 Apical] Pulse Rate [ 78 From Monitor] Respiratory 16 10 L 9 L Rate Blood Pressure 131/59 130/58 O2 Sat by Pulse 100 97 96 Oximetry O2 Sat by Pulse Oximetry [ Assessment] 05/04/18 05/04/18 16:15 16:31 Temperature Pulse Rate 80 78 Pulse Rate [ Apical] Pulse Rate [ From Monitor] Respiratory 13 24 Rate Blood Pressure 130/58 130/58 O2 Sat by Pulse 99 98 Oximetry O2 Sat by Pulse Oximetry [ Assessment] Constitutional: no acute distress, other (Elderly looking AAM, normocephalic and atraumatic with mildly increased respiratory effort on MVS) Eyes: non-icteric ENT: oropharynx moist, other (s/p tracheostomy) Neck: supple, no lymphadenopathy, no JVD, other (large neck circumference) Effort: mildly labored Ascultation: Bilateral: diminished breath sounds, rhonchi Percussion: Bilateral: not dull Cardiovascular: regular rate and rhythm Gastrointestinal: normoactive bowel sounds, soft, non-tender, non-distended, other (protuberant) Integumentary: normal Extremities: no cyanosis, no edema, pulses normal, no ischemia or petechiae Neurologic: non-focal exam (grossly), unable to assess, other (opens eyes spontaneously, not following my prompts) Psychiatric: other (unable to assess) CBC and BMP: 05/03/18 03:20 05/03/18 03:20 ABG, PT/INR, D-dimer: ABG POC ABG pH 7.471 (7.35-7.45) H 04/25/18 13:06 POC ABG pCO2 43.5 (35-45) 04/25/18 13:06 POC ABG pO2 115 (80-105) H 04/25/18 13:06 POC ABG HCO3 31.7 04/25/18 13:06 POC ABG Total CO2 33 04/25/18 13:06 POC ABG O2 Sat 99 04/25/18 13:06 PT/INR, D-dimer PT 13.8 Sec. (12.2-14.9) 04/29/18 21:03 INR 1.00 (0.87-1.13) 04/29/18 21:03 Abnormal lab findings: Abnormal Labs 04/09/18 04/09/18 04/09/18 23:16 23:16 23:16 WBC 13.6 H RBC Hgb Hct MCHC RDW Plt Count Lymph % (Auto) 9.4 L [place] % (Auto) Lymph # [place] # Seg Neutrophils % 87.3 H Seg Neutrophils # 11.9 H POC ABG pH POC ABG pCO2 POC ABG pO2 Sodium 132 L Potassium Chloride 92.7 L Carbon Dioxide BUN Creatinine Glucose 143 H POC Glucose Hemoglobin A1c Lactic Acid 2.10 H* Calcium Phosphorus Magnesium Total Bilirubin 2.20 H Direct Bilirubin AST 107 H Total Creatine Kinase CK-MB (CK-2) C-Reactive Protein Total Protein Albumin TSH Free T4 04/10/18 04/10/18 04/10/18 00:38 00:55 01:13 WBC RBC Hgb Hct MCHC RDW Plt Count Lymph % (Auto) [place] % (Auto) Lymph # [place] # Seg Neutrophils % Seg Neutrophils # POC ABG pH POC ABG pCO2 POC ABG pO2 Sodium Potassium Chloride Carbon Dioxide BUN Creatinine Glucose POC Glucose 117 H 121 H Hemoglobin A1c Lactic Acid 2.10 H* Calcium Phosphorus Magnesium Total Bilirubin Direct Bilirubin AST Total Creatine Kinase CK-MB (CK-2) C-Reactive Protein Total Protein Albumin TSH Free T4 04/10/18 04/10/18 04/10/18 02:10 03:51 04:07 WBC 14.0 H RBC Hgb Hct MCHC RDW Plt Count Lymph % (Auto) 7.5 L [place] % (Auto) Lymph # 1.1 L [place] # 1.0 H Seg Neutrophils % 84.9 H Seg Neutrophils # 11.8 H POC ABG pH POC ABG pCO2 POC ABG pO2 Sodium Potassium Chloride Carbon Dioxide BUN Creatinine Glucose POC Glucose 153 H 158 H Hemoglobin A1c Lactic Acid Calcium Phosphorus Magnesium Total Bilirubin Direct Bilirubin AST Total Creatine Kinase CK-MB (CK-2) C-Reactive Protein Total Protein Albumin TSH Free T4 04/10/18 04/10/18 04/10/18 04:07 06:56 09:48 WBC RBC Hgb Hct MCHC RDW Plt Count Lymph % (Auto) [place] % (Auto) Lymph # [place] # Seg Neutrophils % Seg Neutrophils # POC ABG pH POC ABG pCO2 POC ABG pO2 Sodium 130 L Potassium Chloride 93.4 L Carbon Dioxide BUN Creatinine Glucose 180 H POC Glucose 251 H 245 H Hemoglobin A1c Lactic Acid Calcium 7.9 L D Phosphorus Magnesium Total Bilirubin Direct Bilirubin AST Total Creatine Kinase 7857 H CK-MB (CK-2) 34.3 H C-Reactive Protein Total Protein Albumin TSH Free T4 04/10/18 04/10/18 04/10/18 10:37 12:44 17:31 WBC RBC Hgb Hct MCHC RDW Plt Count Lymph % (Auto) [place] % (Auto) Lymph # [place] # Seg Neutrophils % Seg Neutrophils # POC ABG pH POC ABG pCO2 45.6 H POC ABG pO2 374 H Sodium Potassium Chloride Carbon Dioxide BUN Creatinine Glucose POC Glucose 348 H Hemoglobin A1c Lactic Acid Calcium Phosphorus Magnesium Total Bilirubin Direct Bilirubin AST Total Creatine Kinase 9880 H CK-MB (CK-2) 30.0 H C-Reactive Protein Total Protein Albumin TSH Free T4 04/10/18 04/11/18 04/11/18 23:36 03:52 04:28 WBC 12.2 H RBC Hgb Hct MCHC RDW Plt Count 132 L Lymph % (Auto) [place] % (Auto) 10.2 H Lymph # [place] # 1.2 H Seg Neutrophils % 75.1 H Seg Neutrophils # 9.1 H POC ABG pH 7.495 H POC ABG pCO2 32.4 L POC ABG pO2 Sodium Potassium Chloride Carbon Dioxide BUN Creatinine Glucose POC Glucose 148 H Hemoglobin A1c Lactic Acid Calcium Phosphorus Magnesium Total Bilirubin Direct Bilirubin AST Total Creatine Kinase CK-MB (CK-2) C-Reactive Protein Total Protein Albumin TSH Free T4 04/11/18 04/11/18 04/11/18 04:28 04:28 05:22 WBC RBC Hgb Hct MCHC RDW Plt Count Lymph % (Auto) [place] % (Auto) Lymph # [place] # Seg Neutrophils % Seg Neutrophils # POC ABG pH POC ABG pCO2 POC ABG pO2 Sodium 133 L Potassium 3.5 L Chloride 95.1 L Carbon Dioxide BUN 7 L Creatinine Glucose 206 H POC Glucose 178 H Hemoglobin A1c 6.4 H Lactic Acid Calcium 7.7 L Phosphorus 1.80 L Magnesium 1.50 L Total Bilirubin 4.10 H Direct Bilirubin AST 168 H Total Creatine Kinase 9352 H CK-MB (CK-2) C-Reactive Protein Total Protein Albumin 3.4 L TSH Free T4 04/11/18 04/11/18 04/11/18 11:28 13:43 17:30 WBC RBC Hgb Hct MCHC RDW Plt Count Lymph % (Auto) [place] % (Auto) Lymph # [place] # Seg Neutrophils % Seg Neutrophils # POC ABG pH POC ABG pCO2 POC ABG pO2 Sodium Potassium Chloride Carbon Dioxide BUN Creatinine Glucose POC Glucose 196 H 142 H Hemoglobin A1c Lactic Acid Calcium Phosphorus Magnesium Total Bilirubin Direct Bilirubin AST Total Creatine Kinase CK-MB (CK-2) C-Reactive Protein 7.20 H Total Protein Albumin TSH Free T4 04/11/18 04/11/18 04/12/18 18:59 23:23 04:00 WBC RBC Hgb Hct MCHC RDW Plt Count Lymph % (Auto) [place] % (Auto) Lymph # [place] # Seg Neutrophils % Seg Neutrophils # POC ABG pH 7.489 H POC ABG pCO2 34.5 L POC ABG pO2 Sodium Potassium 3.3 L Chloride Carbon Dioxide BUN 6 L Creatinine Glucose 151 H POC Glucose 129 H Hemoglobin A1c Lactic Acid Calcium 7.3 L Phosphorus 2.00 L Magnesium Total Bilirubin 2.80 H Direct Bilirubin AST 121 H Total Creatine Kinase 5177 H CK-MB (CK-2) C-Reactive Protein Total Protein 5.9 L Albumin 3.1 L TSH Free T4 04/12/18 04/12/18 04/12/18 04:00 04:04 05:21 WBC RBC Hgb Hct 34.9 L MCHC 35 H RDW Plt Count 128 L Lymph % (Auto) [place] % (Auto) 10.6 H Lymph # [place] # 0.9 H Seg Neutrophils % Seg Neutrophils # POC ABG pH 7.454 H POC ABG pCO2 POC ABG pO2 Sodium Potassium Chloride Carbon Dioxide BUN Creatinine Glucose POC Glucose 136 H Hemoglobin A1c Lactic Acid Calcium Phosphorus Magnesium Total Bilirubin Direct Bilirubin AST Total Creatine Kinase CK-MB (CK-2) C-Reactive Protein Total Protein Albumin TSH Free T4 04/12/18 04/13/18 04/13/18 11:23 00:21 04:57 WBC RBC Hgb Hct MCHC RDW Plt Count Lymph % (Auto) [place] % (Auto) Lymph # [place] # Seg Neutrophils % Seg Neutrophils # POC ABG pH POC ABG pCO2 34.7 L POC ABG pO2 125 H Sodium Potassium Chloride Carbon Dioxide BUN Creatinine Glucose POC Glucose 166 H 143 H Hemoglobin A1c Lactic Acid Calcium Phosphorus Magnesium Total Bilirubin Direct Bilirubin AST Total Creatine Kinase CK-MB (CK-2) C-Reactive Protein Total Protein Albumin TSH Free T4 04/13/18 04/13/18 04/13/18 05:02 05:02 12:16 WBC RBC Hgb Hct MCHC RDW Plt Count Lymph % (Auto) [place] % (Auto) Lymph # [place] # Seg Neutrophils % Seg Neutrophils # POC ABG pH POC ABG pCO2 POC ABG pO2 Sodium Potassium Chloride Carbon Dioxide BUN Creatinine Glucose POC Glucose 161 H 170 H Hemoglobin A1c Lactic Acid Calcium Phosphorus Magnesium Total Bilirubin Direct Bilirubin AST Total Creatine Kinase 3456 H CK-MB (CK-2) C-Reactive Protein Total Protein Albumin TSH Free T4 04/13/18 04/13/18 04/14/18 18:52 23:09 04:35 WBC RBC Hgb Hct MCHC RDW Plt Count Lymph % (Auto) [place] % (Auto) Lymph # [place] # Seg Neutrophils % Seg Neutrophils # POC ABG pH 7.467 H POC ABG pCO2 POC ABG pO2 Sodium Potassium Chloride Carbon Dioxide BUN Creatinine Glucose POC Glucose 196 H 219 H Hemoglobin A1c Lactic Acid Calcium Phosphorus Magnesium Total Bilirubin Direct Bilirubin AST Total Creatine Kinase CK-MB (CK-2) C-Reactive Protein Total Protein Albumin TSH Free T4 04/14/18 04/14/18 04/14/18 05:00 05:26 11:20 WBC RBC Hgb Hct MCHC RDW Plt Count Lymph % (Auto) [place] % (Auto) Lymph # [place] # Seg Neutrophils % Seg Neutrophils # POC ABG pH POC ABG pCO2 POC ABG pO2 Sodium Potassium Chloride Carbon Dioxide BUN Creatinine Glucose POC Glucose 249 H 260 H Hemoglobin A1c Lactic Acid Calcium Phosphorus Magnesium Total Bilirubin Direct Bilirubin AST Total Creatine Kinase 2247 H CK-MB (CK-2) C-Reactive Protein Total Protein Albumin TSH Free T4 04/14/18 04/14/18 04/14/18 17:04 17:51 23:53 WBC RBC Hgb Hct MCHC RDW Plt Count Lymph % (Auto) [place] % (Auto) Lymph # [place] # Seg Neutrophils % Seg Neutrophils # POC ABG pH POC ABG pCO2 POC ABG pO2 79 L Sodium Potassium Chloride Carbon Dioxide BUN Creatinine Glucose POC Glucose 284 H 203 H Hemoglobin A1c Lactic Acid Calcium Phosphorus Magnesium Total Bilirubin Direct Bilirubin AST Total Creatine Kinase CK-MB (CK-2) C-Reactive Protein Total Protein Albumin TSH Free T4 04/15/18 04/15/18 04/15/18 04:24 05:26 12:56 WBC RBC Hgb Hct MCHC RDW Plt Count Lymph % (Auto) [place] % (Auto) Lymph # [place] # Seg Neutrophils % Seg Neutrophils # POC ABG pH POC ABG pCO2 45.4 H POC ABG pO2 78 L Sodium Potassium Chloride Carbon Dioxide BUN Creatinine Glucose POC Glucose 194 H 200 H Hemoglobin A1c Lactic Acid Calcium Phosphorus Magnesium Total Bilirubin Direct Bilirubin AST Total Creatine Kinase CK-MB (CK-2) C-Reactive Protein Total Protein Albumin TSH Free T4 04/15/18 04/15/18 04/16/18 17:46 23:57 05:08 WBC RBC Hgb Hct MCHC RDW Plt Count Lymph % (Auto) [place] % (Auto) Lymph # [place] # Seg Neutrophils % Seg Neutrophils # POC ABG pH POC ABG pCO2 POC ABG pO2 Sodium Potassium Chloride Carbon Dioxide BUN Creatinine Glucose POC Glucose 118 H 204 H 221 H Hemoglobin A1c Lactic Acid Calcium Phosphorus Magnesium Total Bilirubin Direct Bilirubin AST Total Creatine Kinase CK-MB (CK-2) C-Reactive Protein Total Protein Albumin TSH Free T4 04/16/18 04/16/18 04/16/18 05:16 12:23 13:07 WBC RBC Hgb Hct MCHC RDW Plt Count Lymph % (Auto) [place] % (Auto) Lymph # [place] # Seg Neutrophils % Seg Neutrophils # POC ABG pH 7.456 H POC ABG pCO2 46.7 H POC ABG pO2 Sodium Potassium Chloride Carbon Dioxide BUN Creatinine Glucose POC Glucose 271 H Hemoglobin A1c Lactic Acid Calcium Phosphorus Magnesium Total Bilirubin Direct Bilirubin AST Total Creatine Kinase CK-MB (CK-2) C-Reactive Protein Total Protein Albumin TSH Free T4 04/16/18 04/17/18 04/17/18 19:14 00:08 05:46 WBC RBC Hgb Hct MCHC RDW Plt Count Lymph % (Auto) [place] % (Auto) Lymph # [place] # Seg Neutrophils % Seg Neutrophils # POC ABG pH POC ABG pCO2 POC ABG pO2 Sodium Potassium Chloride Carbon Dioxide BUN Creatinine Glucose POC Glucose 221 H 238 H 274 H Hemoglobin A1c Lactic Acid Calcium Phosphorus Magnesium Total Bilirubin Direct Bilirubin AST Total Creatine Kinase CK-MB (CK-2) C-Reactive Protein Total Protein Albumin TSH Free T4 04/17/18 04/17/18 04/17/18 13:50 13:59 14:20 WBC RBC Hgb Hct MCHC RDW Plt Count Lymph % (Auto) [place] % (Auto) Lymph # [place] # Seg Neutrophils % Seg Neutrophils # POC ABG pH 7.474 H POC ABG pCO2 POC ABG pO2 Sodium Potassium 3.4 L Chloride 93.6 L Carbon Dioxide 33 H BUN Creatinine Glucose 305 H POC Glucose 315 H Hemoglobin A1c Lactic Acid Calcium Phosphorus Magnesium Total Bilirubin Direct Bilirubin AST Total Creatine Kinase CK-MB (CK-2) C-Reactive Protein Total Protein Albumin TSH Free T4 04/17/18 04/17/18 04/18/18 17:04 23:26 04:20 WBC RBC Hgb Hct MCHC RDW Plt Count Lymph % (Auto) [place] % (Auto) Lymph # [place] # Seg Neutrophils % Seg Neutrophils # POC ABG pH 7.473 H POC ABG pCO2 POC ABG pO2 Sodium Potassium Chloride Carbon Dioxide BUN Creatinine Glucose POC Glucose 280 H 284 H Hemoglobin A1c Lactic Acid Calcium Phosphorus Magnesium Total Bilirubin Direct Bilirubin AST Total Creatine Kinase CK-MB (CK-2) C-Reactive Protein Total Protein Albumin TSH Free T4 04/18/18 04/18/18 04/18/18 05:14 08:32 11:00 WBC RBC Hgb Hct MCHC RDW Plt Count Lymph % (Auto) [place] % (Auto) Lymph # [place] # Seg Neutrophils % Seg Neutrophils # POC ABG pH POC ABG pCO2 POC ABG pO2 Sodium Potassium Chloride Carbon Dioxide BUN Creatinine Glucose POC Glucose 286 H 296 H Hemoglobin A1c Lactic Acid Calcium Phosphorus Magnesium Total Bilirubin Direct Bilirubin 0.3 H AST 87 H Total Creatine Kinase CK-MB (CK-2) C-Reactive Protein Total Protein Albumin 3.7 L TSH Free T4 04/18/18 04/18/18 04/19/18 12:03 18:15 00:08 WBC RBC Hgb Hct MCHC RDW Plt Count Lymph % (Auto) [place] % (Auto) Lymph # [place] # Seg Neutrophils % Seg Neutrophils # POC ABG pH POC ABG pCO2 POC ABG pO2 Sodium Potassium Chloride Carbon Dioxide BUN Creatinine Glucose POC Glucose 353 H 327 H 331 H Hemoglobin A1c Lactic Acid Calcium Phosphorus Magnesium Total Bilirubin Direct Bilirubin AST Total Creatine Kinase CK-MB (CK-2) C-Reactive Protein Total Protein Albumin TSH Free T4 04/19/18 04/19/18 04/19/18 04:46 05:26 11:48 WBC RBC Hgb Hct MCHC RDW Plt Count Lymph % (Auto) [place] % (Auto) Lymph # [place] # Seg Neutrophils % Seg Neutrophils # POC ABG pH 7.497 H POC ABG pCO2 POC ABG pO2 119 H Sodium Potassium Chloride Carbon Dioxide BUN Creatinine Glucose POC Glucose 323 H 266 H Hemoglobin A1c Lactic Acid Calcium Phosphorus Magnesium Total Bilirubin Direct Bilirubin AST Total Creatine Kinase CK-MB (CK-2) C-Reactive Protein Total Protein Albumin TSH Free T4 04/19/18 04/19/18 04/20/18 17:52 23:37 00:07 WBC RBC Hgb Hct MCHC RDW Plt Count Lymph % (Auto) [place] % (Auto) Lymph # [place] # Seg Neutrophils % Seg Neutrophils # POC ABG pH POC ABG pCO2 POC ABG pO2 Sodium Potassium Chloride Carbon Dioxide BUN Creatinine Glucose POC Glucose 284 H 285 H 312 H Hemoglobin A1c Lactic Acid Calcium Phosphorus Magnesium Total Bilirubin Direct Bilirubin AST Total Creatine Kinase CK-MB (CK-2) C-Reactive Protein Total Protein Albumin TSH Free T4 04/20/18 04/20/18 04/20/18 04:09 04:09 04:37 WBC RBC Hgb Hct 34.7 L MCHC 35 H RDW Plt Count Lymph % (Auto) [place] % (Auto) Lymph # [place] # Seg Neutrophils % Seg Neutrophils # POC ABG pH POC ABG pCO2 POC ABG pO2 Sodium Potassium 3.5 L Chloride 95.7 L Carbon Dioxide 34 H BUN Creatinine Glucose 286 H POC Glucose 267 H Hemoglobin A1c Lactic Acid Calcium Phosphorus Magnesium Total Bilirubin Direct Bilirubin AST Total Creatine Kinase CK-MB (CK-2) C-Reactive Protein Total Protein Albumin TSH Free T4 04/20/18 04/20/18 04/20/18 12:32 17:54 21:07 WBC RBC Hgb Hct MCHC RDW Plt Count Lymph % (Auto) [place] % (Auto) Lymph # [place] # Seg Neutrophils % Seg Neutrophils # POC ABG pH POC ABG pCO2 POC ABG pO2 Sodium Potassium Chloride Carbon Dioxide BUN Creatinine Glucose POC Glucose 220 H 298 H 187 H Hemoglobin A1c Lactic Acid Calcium Phosphorus Magnesium Total Bilirubin Direct Bilirubin AST Total Creatine Kinase CK-MB (CK-2) C-Reactive Protein Total Protein Albumin TSH Free T4 04/21/18 04/21/18 04/21/18 00:04 05:00 05:41 WBC RBC Hgb Hct MCHC RDW Plt Count Lymph % (Auto) [place] % (Auto) Lymph # [place] # Seg Neutrophils % Seg Neutrophils # POC ABG pH POC ABG pCO2 POC ABG pO2 Sodium Potassium Chloride 95.2 L Carbon Dioxide 34 H BUN Creatinine Glucose 179 H POC Glucose 183 H 166 H Hemoglobin A1c Lactic Acid Calcium Phosphorus Magnesium Total Bilirubin Direct Bilirubin AST Total Creatine Kinase CK-MB (CK-2) C-Reactive Protein Total Protein Albumin TSH Free T4 04/21/18 04/21/18 04/21/18 11:55 18:09 23:36 WBC RBC Hgb Hct MCHC RDW Plt Count Lymph % (Auto) [place] % (Auto) Lymph # [place] # Seg Neutrophils % Seg Neutrophils # POC ABG pH POC ABG pCO2 POC ABG pO2 Sodium Potassium Chloride Carbon Dioxide BUN Creatinine Glucose POC Glucose 219 H 247 H 229 H Hemoglobin A1c Lactic Acid Calcium Phosphorus Magnesium Total Bilirubin Direct Bilirubin AST Total Creatine Kinase CK-MB (CK-2) C-Reactive Protein Total Protein Albumin TSH Free T4 04/22/18 04/22/18 04/22/18 04:07 04:07 05:08 WBC RBC Hgb Hct MCHC 35 H RDW 15.3 H Plt Count Lymph % (Auto) [place] % (Auto) Lymph # [place] # Seg Neutrophils % Seg Neutrophils # POC ABG pH POC ABG pCO2 POC ABG pO2 Sodium Potassium Chloride 97.4 L Carbon Dioxide 31 H BUN Creatinine Glucose 177 H POC Glucose 200 H Hemoglobin A1c Lactic Acid Calcium Phosphorus Magnesium Total Bilirubin Direct Bilirubin AST Total Creatine Kinase CK-MB (CK-2) C-Reactive Protein Total Protein Albumin TSH Free T4 0304/22/18 04/23/18 12:15 18:04 04:55 WBC RBC Hgb Hct MCHC RDW Plt Count Lymph % (Auto) [place] % (Auto) Lymph # [place] # Seg Neutrophils % Seg Neutrophils # POC ABG pH POC ABG pCO2 POC ABG pO2 Sodium Potassium Chloride Carbon Dioxide BUN 23 H Creatinine Glucose 274 H POC Glucose 189 H 191 H Hemoglobin A1c Lactic Acid Calcium Phosphorus Magnesium Total Bilirubin Direct Bilirubin AST Total Creatine Kinase CK-MB (CK-2) C-Reactive Protein Total Protein Albumin TSH Free T4 04/23/18 04/23/18 04/23/18 05:21 11:06 17:46 WBC RBC Hgb Hct MCHC RDW Plt Count Lymph % (Auto) [place] % (Auto) Lymph # [place] # Seg Neutrophils % Seg Neutrophils # POC ABG pH POC ABG pCO2 POC ABG pO2 Sodium Potassium Chloride Carbon Dioxide BUN Creatinine Glucose POC Glucose 143 H 176 H 142 H Hemoglobin A1c Lactic Acid Calcium Phosphorus Magnesium Total Bilirubin Direct Bilirubin AST Total Creatine Kinase CK-MB (CK-2) C-Reactive Protein Total Protein Albumin TSH Free T4 04/23/18 04/24/18 04/24/18 23:35 06:02 11:37 WBC RBC Hgb Hct MCHC RDW Plt Count Lymph % (Auto) [place] % (Auto) Lymph # [place] # Seg Neutrophils % Seg Neutrophils # POC ABG pH POC ABG pCO2 POC ABG pO2 Sodium Potassium Chloride Carbon Dioxide BUN Creatinine Glucose POC Glucose 127 H 175 H 188 H Hemoglobin A1c Lactic Acid Calcium Phosphorus Magnesium Total Bilirubin Direct Bilirubin AST Total Creatine Kinase CK-MB (CK-2) C-Reactive Protein Total Protein Albumin TSH Free T4 04/24/18 04/24/18 04/24/18 16:50 18:40 20:23 WBC RBC Hgb Hct MCHC RDW Plt Count Lymph % (Auto) [place] % (Auto) Lymph # [place] # Seg Neutrophils % Seg Neutrophils # POC ABG pH POC ABG pCO2 POC ABG pO2 Sodium Potassium Chloride Carbon Dioxide BUN Creatinine Glucose POC Glucose 134 H 148 H Hemoglobin A1c Lactic Acid Calcium Phosphorus Magnesium Total Bilirubin Direct Bilirubin AST Total Creatine Kinase CK-MB (CK-2) C-Reactive Protein Total Protein Albumin TSH 47.760 H Free T4 0.10 L 04/24/18 04/25/18 04/25/18 23:14 05:22 05:22 WBC RBC Hgb Hct MCHC 35 H RDW 15.4 H Plt Count Lymph % (Auto) [place] % (Auto) Lymph # [place] # Seg Neutrophils % Seg Neutrophils # POC ABG pH POC ABG pCO2 POC ABG pO2 Sodium 136 L Potassium Chloride 95.0 L Carbon Dioxide BUN Creatinine Glucose 210 H POC Glucose 145 H Hemoglobin A1c Lactic Acid Calcium Phosphorus Magnesium Total Bilirubin Direct Bilirubin AST Total Creatine Kinase CK-MB (CK-2) C-Reactive Protein Total Protein Albumin TSH Free T4 04/25/18 04/25/18 04/25/18 05:44 12:19 13:06 WBC RBC Hgb Hct MCHC RDW Plt Count Lymph % (Auto) [place] % (Auto) Lymph # [place] # Seg Neutrophils % Seg Neutrophils # POC ABG pH 7.471 H POC ABG pCO2 POC ABG pO2 115 H Sodium Potassium Chloride Carbon Dioxide BUN Creatinine Glucose POC Glucose 176 H 231 H Hemoglobin A1c Lactic Acid Calcium Phosphorus Magnesium Total Bilirubin Direct Bilirubin AST Total Creatine Kinase CK-MB (CK-2) C-Reactive Protein Total Protein Albumin TSH Free T4 04/25/18 04/25/18 04/26/18 17:54 20:09 00:01 WBC RBC Hgb Hct MCHC RDW Plt Count Lymph % (Auto) [place] % (Auto) Lymph # [place] # Seg Neutrophils % Seg Neutrophils # POC ABG pH POC ABG pCO2 POC ABG pO2 Sodium Potassium Chloride Carbon Dioxide BUN Creatinine Glucose POC Glucose 196 H 119 H 174 H Hemoglobin A1c Lactic Acid Calcium Phosphorus Magnesium Total Bilirubin Direct Bilirubin AST Total Creatine Kinase CK-MB (CK-2) C-Reactive Protein Total Protein Albumin TSH Free T4 04/26/18 04/26/18 04/26/18 05:10 12:03 15:20 WBC RBC Hgb Hct MCHC RDW Plt Count Lymph % (Auto) [place] % (Auto) Lymph # [place] # Seg Neutrophils % Seg Neutrophils # POC ABG pH POC ABG pCO2 POC ABG pO2 Sodium Potassium Chloride Carbon Dioxide BUN Creatinine Glucose POC Glucose 212 H 222 H 113 H Hemoglobin A1c Lactic Acid Calcium Phosphorus Magnesium Total Bilirubin Direct Bilirubin AST Total Creatine Kinase CK-MB (CK-2) C-Reactive Protein Total Protein Albumin TSH Free T4 04/26/18 04/26/18 04/27/18 18:08 23:39 05:10 WBC RBC Hgb Hct MCHC RDW Plt Count Lymph % (Auto) [place] % (Auto) Lymph # [place] # Seg Neutrophils % Seg Neutrophils # POC ABG pH POC ABG pCO2 POC ABG pO2 Sodium Potassium Chloride Carbon Dioxide BUN Creatinine Glucose POC Glucose 110 H 165 H 137 H Hemoglobin A1c Lactic Acid Calcium Phosphorus Magnesium Total Bilirubin Direct Bilirubin AST Total Creatine Kinase CK-MB (CK-2) C-Reactive Protein Total Protein Albumin TSH Free T4 04/27/18 04/27/18 04/27/18 10:04 11:23 17:36 WBC RBC Hgb Hct MCHC RDW Plt Count Lymph % (Auto) [place] % (Auto) Lymph # [place] # Seg Neutrophils % Seg Neutrophils # POC ABG pH POC ABG pCO2 POC ABG pO2 Sodium Potassium Chloride Carbon Dioxide BUN Creatinine Glucose POC Glucose 190 H 258 H 198 H Hemoglobin A1c Lactic Acid Calcium Phosphorus Magnesium Total Bilirubin Direct Bilirubin AST Total Creatine Kinase CK-MB (CK-2) C-Reactive Protein Total Protein Albumin TSH Free T4 04/27/18 04/28/18 04/28/18 23:23 05:19 13:06 WBC RBC Hgb Hct MCHC RDW Plt Count Lymph % (Auto) [place] % (Auto) Lymph # [place] # Seg Neutrophils % Seg Neutrophils # POC ABG pH POC ABG pCO2 POC ABG pO2 Sodium Potassium Chloride Carbon Dioxide BUN Creatinine Glucose POC Glucose 131 H 178 H 194 H Hemoglobin A1c Lactic Acid Calcium Phosphorus Magnesium Total Bilirubin Direct Bilirubin AST Total Creatine Kinase CK-MB (CK-2) C-Reactive Protein Total Protein Albumin TSH Free T4 04/28/18 04/29/18 04/29/18 16:59 00:24 05:49 WBC RBC Hgb Hct MCHC RDW Plt Count Lymph % (Auto) [place] % (Auto) Lymph # [place] # Seg Neutrophils % Seg Neutrophils # POC ABG pH POC ABG pCO2 POC ABG pO2 Sodium Potassium Chloride Carbon Dioxide BUN Creatinine Glucose POC Glucose 155 H 166 H 226 H Hemoglobin A1c Lactic Acid Calcium Phosphorus Magnesium Total Bilirubin Direct Bilirubin AST Total Creatine Kinase CK-MB (CK-2) C-Reactive Protein Total Protein Albumin TSH Free T4 04/29/18 04/29/18 04/29/18 12:12 13:29 13:29 WBC RBC Hgb Hct 34.8 L MCHC RDW Plt Count Lymph % (Auto) [place] % (Auto) 9.8 H Lymph # [place] # Seg Neutrophils % Seg Neutrophils # POC ABG pH POC ABG pCO2 POC ABG pO2 Sodium 135 L Potassium Chloride Carbon Dioxide BUN Creatinine Glucose 214 H POC Glucose 217 H Hemoglobin A1c Lactic Acid Calcium Phosphorus Magnesium Total Bilirubin Direct Bilirubin AST Total Creatine Kinase CK-MB (CK-2) C-Reactive Protein Total Protein Albumin TSH Free T4 04/29/18 04/29/18 04/30/18 21:56 23:49 05:15 WBC RBC Hgb Hct MCHC RDW Plt Count Lymph % (Auto) [place] % (Auto) Lymph # [place] # Seg Neutrophils % Seg Neutrophils # POC ABG pH POC ABG pCO2 POC ABG pO2 Sodium Potassium Chloride Carbon Dioxide BUN Creatinine Glucose POC Glucose 129 H 148 H 113 H Hemoglobin A1c Lactic Acid Calcium Phosphorus Magnesium Total Bilirubin Direct Bilirubin AST Total Creatine Kinase CK-MB (CK-2) C-Reactive Protein Total Protein Albumin TSH Free T4 04/30/18 04/30/18 04/30/18 05:28 12:10 18:12 WBC RBC Hgb Hct MCHC RDW Plt Count Lymph % (Auto) [place] % (Auto) Lymph # [place] # Seg Neutrophils % Seg Neutrophils # POC ABG pH POC ABG pCO2 POC ABG pO2 Sodium Potassium Chloride Carbon Dioxide BUN Creatinine Glucose POC Glucose 118 H 159 H 149 H Hemoglobin A1c Lactic Acid Calcium Phosphorus Magnesium Total Bilirubin Direct Bilirubin AST Total Creatine Kinase CK-MB (CK-2) C-Reactive Protein Total Protein Albumin TSH Free T4 04/30/18 04/30/18 05/01/18 20:12 23:31 05:48 WBC RBC Hgb Hct MCHC RDW Plt Count Lymph % (Auto) [place] % (Auto) Lymph # [place] # Seg Neutrophils % Seg Neutrophils # POC ABG pH POC ABG pCO2 POC ABG pO2 Sodium Potassium Chloride Carbon Dioxide BUN Creatinine Glucose POC Glucose 187 H 208 H 172 H Hemoglobin A1c Lactic Acid Calcium Phosphorus Magnesium Total Bilirubin Direct Bilirubin AST Total Creatine Kinase CK-MB (CK-2) C-Reactive Protein Total Protein Albumin TSH Free T4 05/01/18 05/01/18 05/01/18 12:25 15:05 18:06 WBC 13.3 H RBC Hgb 11.3 L Hct 33.1 L MCHC RDW Plt Count Lymph % (Auto) 9.8 L [place] % (Auto) 7.7 H Lymph # [place] # 1.0 H Seg Neutrophils % 81.9 H Seg Neutrophils # 10.9 H POC ABG pH POC ABG pCO2 POC ABG pO2 Sodium Potassium Chloride Carbon Dioxide BUN Creatinine Glucose POC Glucose 151 H 227 H Hemoglobin A1c Lactic Acid Calcium Phosphorus Magnesium Total Bilirubin Direct Bilirubin AST Total Creatine Kinase CK-MB (CK-2) C-Reactive Protein Total Protein Albumin TSH Free T4 05/01/18 05/02/18 05/02/18 23:24 04:56 04:56 WBC 12.9 H RBC Hgb 10.9 L Hct 32.8 L MCHC RDW 15.5 H Plt Count Lymph % (Auto) [place] % (Auto) Lymph # [place] # Seg Neutrophils % Seg Neutrophils # POC ABG pH POC ABG pCO2 POC ABG pO2 Sodium 136 L Potassium Chloride 94.8 L Carbon Dioxide BUN Creatinine Glucose 175 H POC Glucose 157 H Hemoglobin A1c Lactic Acid Calcium Phosphorus Magnesium Total Bilirubin Direct Bilirubin AST Total Creatine Kinase CK-MB (CK-2) C-Reactive Protein Total Protein Albumin TSH Free T4 05/02/18 05/02/18 05/02/18 05:24 12:36 18:14 WBC RBC Hgb Hct MCHC RDW Plt Count Lymph % (Auto) [place] % (Auto) Lymph # [place] # Seg Neutrophils % Seg Neutrophils # POC ABG pH POC ABG pCO2 POC ABG pO2 Sodium Potassium Chloride Carbon Dioxide BUN Creatinine Glucose POC Glucose 178 H 269 H 209 H Hemoglobin A1c Lactic Acid Calcium Phosphorus Magnesium Total Bilirubin Direct Bilirubin AST Total Creatine Kinase CK-MB (CK-2) C-Reactive Protein Total Protein Albumin TSH Free T4 05/03/18 05/03/18 05/03/18 00:15 03:20 03:20 WBC RBC 3.54 L Hgb 11.0 L Hct 32.0 L MCHC 35 H RDW 15.5 H Plt Count Lymph % (Auto) [place] % (Auto) Lymph # [place] # Seg Neutrophils % Seg Neutrophils # POC ABG pH POC ABG pCO2 POC ABG pO2 Sodium 135 L Potassium Chloride 95.8 L Carbon Dioxide BUN Creatinine 0.7 L Glucose 226 H POC Glucose 227 H Hemoglobin A1c Lactic Acid Calcium Phosphorus Magnesium Total Bilirubin Direct Bilirubin AST Total Creatine Kinase CK-MB (CK-2) C-Reactive Protein Total Protein Albumin TSH Free T4 05/03/18 05/03/18 05/03/18 05:26 08:53 11:46 WBC RBC Hgb Hct MCHC RDW Plt Count Lymph % (Auto) [place] % (Auto) Lymph # [place] # Seg Neutrophils % Seg Neutrophils # POC ABG pH POC ABG pCO2 POC ABG pO2 Sodium Potassium Chloride Carbon Dioxide BUN Creatinine Glucose POC Glucose 194 H 216 H 260 H Hemoglobin A1c Lactic Acid Calcium Phosphorus Magnesium Total Bilirubin Direct Bilirubin AST Total Creatine Kinase CK-MB (CK-2) C-Reactive Protein Total Protein Albumin TSH Free T4 05/03/18 05/04/18 05/04/18 18:00 00:29 05:07 WBC RBC Hgb Hct MCHC RDW Plt Count Lymph % (Auto) [place] % (Auto) Lymph # [place] # Seg Neutrophils % Seg Neutrophils # POC ABG pH POC ABG pCO2 POC ABG pO2 Sodium Potassium Chloride Carbon Dioxide BUN Creatinine Glucose POC Glucose 261 H 226 H 212 H Hemoglobin A1c Lactic Acid Calcium Phosphorus Magnesium Total Bilirubin Direct Bilirubin AST Total Creatine Kinase CK-MB (CK-2) C-Reactive Protein Total Protein Albumin TSH Free T4 05/04/18 12:16 WBC RBC Hgb Hct MCHC RDW Plt Count Lymph % (Auto) [place] % (Auto) Lymph # [place] # Seg Neutrophils % Seg Neutrophils # POC ABG pH POC ABG pCO2 POC ABG pO2 Sodium Potassium Chloride Carbon Dioxide BUN Creatinine Glucose POC Glucose 239 H Hemoglobin A1c Lactic Acid Calcium Phosphorus Magnesium Total Bilirubin Direct Bilirubin AST Total Creatine Kinase CK-MB (CK-2) C-Reactive Protein Total Protein Albumin TSH Free T4 Allied health notes reviewed: RT
[2018-05-04] MEDS: ROBINUL FEEDTUBE SCH (17:46)
[2018-05-04] MEDS: MIRALAX 3350 PO SCH (23:41)
[2018-05-05 05:56] LABS: BUN/Creatinine Ratio 20; Blood Urea Nitrogen 14 mg/dL (9-20); Calcium 8.6 mg/dL (8.4-10.2); Hemolysis Index 9
[2018-05-05 06:06] LABS: Basophils % (Auto) 0.4 % (0.0-1.8); Eosinophils # (Auto) 0.3 K/mm3 (0.0-0.4); Eosinophils % (Auto) 3.1 % (0.0-4.3); Hematocrit 34.2 % (35.5-45.6); Hemoglobin 11.6 gm/dl (11.8-15.2); Lymphocytes # (Auto) 1.6 K/mm3 (1.2-5.4); Lymphocytes % (Auto) 19.2 % (13.4-35.0); Mean Corpuscular HGB Conc 34 % (32-34); Mean Corpuscular Volume 92 fl (84-94); Monocytes % (Auto) 11.8 % (0.0-7.3); Platelet Count 228 K/mm3 (140-440); Red Blood Count 3.72 M/mm3 (3.65-5.03); Red Cell Distribution Width 15.4 % (13.2-15.2)
[2018-05-05] MEDS: HumuLIN R SUB-Q SCH ×4 (06:36→21:09)
[2018-05-05] MEDS: SYNTHROID PO SCH (06:41)
[2018-05-05] MEDS: APRESOLINE PO SCH ×3 (06:42→21:14)
[2018-05-05] MEDS: HumaLOG SUB-Q SCH ×3 (06:43→19:03)
[2018-05-05] MEDS: ROBINUL FEEDTUBE SCH ×3 (06:47→19:06)
[2018-05-05] MEDS: LOVENOX SUB-Q SCH (10:56)
[2018-05-05] MEDS: MAXIPIME/NS 2 GM/100 ML 2 GM/100 ML BAG IV SCH ×2 (10:57→21:16)
[2018-05-05] MEDS: NORVASC FEEDTUBE SCH (10:58)
[2018-05-05] MEDS: PEPCID PO SCH ×2 (10:58→21:14)
[2018-05-05] MEDS: LANTUS SUB-Q SCH (10:58)
[2018-05-05] MEDS: SODIUM CHLORIDE FLUSH SYRINGE 10 ML IV SCH ×2 (10:58→21:22)
[2018-05-05] MEDS: COLACE FEEDTUBE SCH ×2 (10:59→21:23)
[2018-05-05] MEDS: KEPPRA PO SCH ×2 (10:59→21:13)
[2018-05-05] MEDS: PROVIGIL PO SCH (10:59)
--- NOTE | 2018-05-05 12:19 | Progress Note ---
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 SWITCHED TO PO /Hypokalemia -resolved s/p repletion, will cont to monitor /Severe sepsis 2/2 aspiration PNA -resolved -off antibiotics FOLLOWING TREATMENT WITH ROCEPHIN AND FLAGYL /Aspiration Pneumonia -completed antibiotics /DM II with hyperglycemia - Was hypoglycemic on admission - BG improved - Cont current insulin regimen and adjust as needed /Seizure, new onset -probably 2/2 hypoglycemia recorded by EMS staff prior to admission -stable on Keppra -cont seizure precautions /Critical Illness Myopathy -cont supportive care /Thrombocytopenia -level improved, will monitor /Transaminitis -levels improved -Hepatitis panel neg -Abd US neg /Rhabdomyolysis -improved /Hypophosphatemia -resolved /Hypomagenesemia -Replaced /HTN -uncontrolled, meds adjusted /Moderate protein calorie malnutrition -on tube feeding -machine stonecutter following Morbid obesity: Supportive care DVT/GI prophylaxis with Lovenox and famotidine Poor Prognosis LTAC eval- Referral made. The high probability of a clinically significant, sudden or life threatening deterioration of the [Neurology, Pulmonary] system(s) required my full and direct attention, intervention and personal management. The aggregate critical care time was [35] minutes. This time is in addition to time spent performing r eported procedures but includes the following: [x] Data Review and interpretation [x] Patient assessment and monitoring of vital signs [x] Documentation [x] Medication orders and management Brief History: 78-year-old male patient with significant history of hypertension diabetes coronary artery disease was admitted through emergency room with history of unresponsiveness at home for unknown Duration of time. At that time he had hypoglycemia and seizure activity, Patient was unable to protect his airway and was intubated on ventilatory support admitted to ICU also with concern of Aspiration Pneumonia. Neuro: Patient had CT scan 2 days does not show acute abnormality. MR brain also negative for acute findings. 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 Pulmonary: The patient has been maintained on mechanical ventilator, he's not been able to be weaned off the vent. The family wants to continue aggressive care. patient underwent Trach and Peg on 04/30/18 FEN; his electrolytes namely potassium and phosphate were repleted. Initially was hypoglycemic, which now resolved ID; the patient received empiric antibiotics for pneumonia, Cultures including blood, urine and sputum has remained without growth. Musculoskeletal; Traumatic Rhabdomyolysis; status post IV fluids and improved, His medications were optimized for his chronic conditions CXR: Concerning for Focal RLL infiltrate initially, repeat done 04/23/18 shows no acute pathology. Disposition: Patient is awaiting transfer to LTAC Hospitalist Physical VITAL SIGNS: Reviewed. GENERAL: The patient appeared well nourished and normally developed. Continues on mechanical ventilation with trach. HEAD: No signs of head trauma. EYES: Pupils are equal. Sluggish response to light.. EARS: Unable to assess MOUTH: Trach NECK: No adenopathy, no JVD. CHEST: Chest with clear breath sounds bilaterally. No wheezes, rales, or rhonchi. CARDIAC: Bradycardia with regular rate. S1 and S2, without murmurs, gallops, or rubs. VASCULAR: No Edema. Peripheral pulses normal and equal in all extremities. ABDOMEN: Peg in placed. Soft, without detectable tenderness. No sign of distention. No rebound or guarding, and no masses palpated. Bowel Sounds normal. MUSCULOSKELETAL: Extremities without clubbing, cyanosis or edema. NEUROLOGIC EXAM: awake, moves all ext. PSYCHIATRIC: Unable to assess SKIN: No rash or lesions. Subjective Date of service: 05/05/18 Principal diagnosis: Ac Hypoxemic Resp Failure; Seizures; Encephalopathy; DM II; Rhabdomyolysis Interval history: Patient seen and examined, No overnight issues reported. Patient remains off sedation and not responsive to commend but patient is awake. breathing with trach on vent. Pending placement Objective - Constitutional Vitals: Vital Signs - 12hr 05/05/18 05/05/18 05/05/18 00:30 00:34 00:46 Temperature Pulse Rate 68 75 67 Pulse Rate [ Apical] Pulse Rate [ From Monitor] Respiratory 16 17 Rate Blood Pressure 129/56 129/56 127/55 O2 Sat by Pulse 100 100 100 Oximetry O2 Sat by Pulse Oximetry [ Assessment] 05/05/18 05/05/18 05/05/18 01:00 01:16 01:30 Temperature Pulse Rate 64 77 70 Pulse Rate [ Apical] Pulse Rate [ From Monitor] Respiratory 18 21 19 Rate Blood Pressure 127/55 127/55 127/55 O2 Sat by Pulse 100 100 100 Oximetry O2 Sat by Pulse Oximetry [ Assessment] 05/05/18 05/05/18 05/05/18 01:46 02:00 02:16 Temperature Pulse Rate 73 76 77 Pulse Rate [ Apical] Pulse Rate [ From Monitor] Respiratory 16 10 L 23 Rate Blood Pressure 127/55 127/55 127/55 O2 Sat by Pulse 100 100 100 Oximetry O2 Sat by Pulse Oximetry [ Assessment] 05/05/18 05/05/18 05/05/18 02:30 02:46 03:00 Temperature Pulse Rate 79 66 83 Pulse Rate [ Apical] Pulse Rate [ From Monitor] Respiratory 25 H 17 20 Rate Blood Pressure 127/55 127/55 127/55 O2 Sat by Pulse 100 100 100 Oximetry O2 Sat by Pulse Oximetry [ Assessment] 05/05/18 05/05/18 05/05/18 03:16 03:30 03:46 Temperature Pulse Rate 80 74 66 Pulse Rate [ Apical] Pulse Rate [ From Monitor] Respiratory 18 14 17 Rate Blood Pressure 127/55 127/55 127/55 O2 Sat by Pulse 100 100 100 Oximetry O2 Sat by Pulse Oximetry [ Assessment] 05/05/18 05/05/18 05/05/18 04:00 04:16 04:30 Temperature Pulse Rate 66 63 77 Pulse Rate [ Apical] Pulse Rate [ From Monitor] Respiratory 18 18 14 Rate Blood Pressure 127/55 127/55 127/55 O2 Sat by Pulse 100 100 100 Oximetry O2 Sat by Pulse Oximetry [ Assessment] 05/05/18 05/05/18 05/05/18 04:46 04:51 05:00 Temperature Pulse Rate 77 65 69 Pulse Rate [ Apical] Pulse Rate [ From Monitor] Respiratory 23 14 Rate Blood Pressure 141/66 141/66 141/66 O2 Sat by Pulse 100 100 100 Oximetry O2 Sat by Pulse Oximetry [ Assessment] 05/05/18 05/05/18 05/05/18 05:01 05:16 05:30 Temperature Pulse Rate 66 68 Pulse Rate [ Apical] Pulse Rate [ From Monitor] Respiratory 20 19 Rate Blood Pressure 134/65 134/65 O2 Sat by Pulse 100 100 Oximetry O2 Sat by Pulse 100 Oximetry [ Assessment] 05/05/18 05/05/18 05/05/18 05:46 06:00 06:16 Temperature Pulse Rate 61 61 72 Pulse Rate [ Apical] Pulse Rate [ From Monitor] Respiratory 17 18 22 Rate Blood Pressure 144/60 144/60 144/60 O2 Sat by Pulse 100 100 100 Oximetry O2 Sat by Pulse Oximetry [ Assessment] 05/05/18 05/05/18 05/05/18 06:30 06:42 06:46 Temperature Pulse Rate 69 69 69 Pulse Rate [ Apical] Pulse Rate [ From Monitor] Respiratory 13 16 Rate Blood Pressure 119/52 124/59 124/59 O2 Sat by Pulse 100 100 Oximetry O2 Sat by Pulse Oximetry [ Assessment] 05/05/18 05/05/18 05/05/18 07:00 07:16 07:30 Temperature Pulse Rate 67 60 68 Pulse Rate [ Apical] Pulse Rate [ From Monitor] Respiratory 18 15 14 Rate Blood Pressure 124/59 124/59 124/59 O2 Sat by Pulse 100 100 100 Oximetry O2 Sat by Pulse Oximetry [ Assessment] 05/05/18 05/05/18 05/05/18 07:46 08:00 10:58 Temperature 98.3 F Pulse Rate 60 66 70 Pulse Rate [ 66 Apical] Pulse Rate [ 66 From Monitor] Respiratory 18 25 H Rate Blood Pressure 117/50 127/62 O2 Sat by Pulse 100 97 Oximetry O2 Sat by Pulse Oximetry [ Assessment] - Labs CBC & Chem 7: 05/05/18 04:27 05/05/18 04:27 Labs: Abnormal lab results 05/04/18 05/04/18 05/04/18 Range/Units 12:16 17:31 21:19 Hgb (11.8-15.2) gm/dl Hct (35.5-45.6) % RDW (13.2-15.2) % [place] % (Auto) (0.0-7.3) % [place] # (0.0-0.8) K/mm3 POC ABG pH 7.505 H (7.35-7.45) Chloride (98-107) mmol/L Creatinine (0.8-1.5) mg/dL Glucose (75-100) mg/dL POC Glucose 239 H 168 H (70-105) 05/04/18 05/05/1819 Range/Units 23:53 04:27 04:27 Hgb 11.6 L (11.8-15.2) gm/dl Hct 34.2 L (35.5-45.6) % RDW 15.4 H (13.2-15.2) % [place] % (Auto) 11.8 H (0.0-7.3) % [place] # 1.0 H (0.0-0.8) K/mm3 POC ABG pH (7.35-7.45) Chloride 95.7 L (98-107) mmol/L Creatinine 0.7 L (0.8-1.5) mg/dL Glucose 225 H (75-100) mg/dL POC Glucose 170 H (70-105)
--- NOTE | 2018-05-05 16:57 | Progress Note ---
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 daily - prn CXR's & ABG's at this point (post trach CXR reviewed and addressed; no acute process) - follow clinically of AB's and follow blood cultures - continue to wean supplemental oxygen to keep O2 sats > 90% - continue bronchodilators with pulmonary hygiene per RT - VAP bundle addressed - continue daily SAT's - titrate sedatives for RASS 0 to -1 (on hold re: AMS) - neurology evaluation ongoing - continue GI & VTE prophylaxis - azotemia resolved - continue AED's (Keppra) (will consider dose reduction re: somnolence) - continue pertinent home med's - continue enteral nutrition as tolerated - continue accuchecks q6h with glycemic control per SSI for target BG 140-180 mg/dL - will likely need outpatient PSG to evaluate JOE - continue other care per attending / other instructional consultant's ....... re-evaluate in am & prn CODE STATUS: FULL CODE The high probability of a clinically significant, sudden or life-threatening deterioration of the [cardiac, neurology] system(s) required my full and direct attention, intervention and personal management. The aggregate critical care time was [32] minutes without overlap. Time includes spent on; [x] Data Review and interpretation [x] Patient assessment and monitoring of vital signs [x] Documentation [x] Medication orders and management Subjective Date of service: 05/05/18 Principal diagnosis: Ac Hypoxemic Resp Failure; Seizures; Encephalopathy; DM II; Rhabdomyolysis Interval history: Patient is seen today for: Acute Hypoxemic Respiratory Failure; New Onset Seizures (presumed secondary to Hypoglycemia); Acute Encephalopathy (Toxic - Metabolic); Diabetes Type II; Rhabdomyolysis Seen and examined at bedside; 24hour events reviewed; nursing and respiratory care staff consulted; no adverse overnight events reported to me; resting peacefully in bed; on T-piece; rested overnight on MVS; AMS is persistent; NO emesis or overt aspiration Objective Vital Signs - 12hr 05/05/18 05/05/18 05/05/18 05:00 05:01 05:16 Temperature Pulse Rate 69 66 Pulse Rate [ Apical] Pulse Rate [ From Monitor] Respiratory 14 20 Rate Blood Pressure 141/66 134/65 O2 Sat by Pulse 100 100 Oximetry O2 Sat by Pulse 100 Oximetry [ Assessment] 05/05/18 05/05/18 05/05/18 05:30 05:46 06:00 Temperature Pulse Rate 68 61 61 Pulse Rate [ Apical] Pulse Rate [ From Monitor] Respiratory 19 17 18 Rate Blood Pressure 134/65 144/60 144/60 O2 Sat by Pulse 100 100 100 Oximetry O2 Sat by Pulse Oximetry [ Assessment] 05/05/18 05/05/18 05/05/18 06:16 06:30 06:42 Temperature Pulse Rate 72 69 69 Pulse Rate [ Apical] Pulse Rate [ From Monitor] Respiratory 22 13 Rate Blood Pressure 144/60 119/52 124/59 O2 Sat by Pulse 100 100 Oximetry O2 Sat by Pulse Oximetry [ Assessment] 05/05/18 05/05/18 05/05/18 06:46 07:00 07:16 Temperature Pulse Rate 69 67 60 Pulse Rate [ Apical] Pulse Rate [ From Monitor] Respiratory 16 18 15 Rate Blood Pressure 124/59 124/59 124/59 O2 Sat by Pulse 100 100 100 Oximetry O2 Sat by Pulse Oximetry [ Assessment] 05/05/18 05/05/18 05/05/18 07:30 07:46 08:00 Temperature 98.3 F Pulse Rate 68 60 66 Pulse Rate [ 66 Apical] Pulse Rate [ 66 From Monitor] Respiratory 14 18 25 H Rate Blood Pressure 124/59 117/50 O2 Sat by Pulse 100 100 97 Oximetry O2 Sat by Pulse Oximetry [ Assessment] 05/05/18 05/05/18 10:58 13:59 Temperature Pulse Rate 70 80 Pulse Rate [ Apical] Pulse Rate [ From Monitor] Respiratory Rate Blood Pressure 127/62 106/55 O2 Sat by Pulse Oximetry O2 Sat by Pulse Oximetry [ Assessment] Constitutional: no acute distress, other (Elderly looking AAM, normocephalic and atraumatic with mildly increased respiratory effort on MVS) Eyes: non-icteric ENT: oropharynx moist, other (s/p tracheostomy) Neck: supple, no lymphadenopathy, no JVD, other (large neck circumference) Effort: mildly labored Ascultation: Bilateral: diminished breath sounds, rhonchi Percussion: Bilateral: not dull Cardiovascular: regular rate and rhythm Gastrointestinal: normoactive bowel sounds, soft, non-tender, non-distended, other (protuberant) Integumentary: normal Extremities: no cyanosis, no edema, pulses normal, no ischemia or petechiae Neurologic: non-focal exam (grossly), unable to assess, other (opens eyes spontaneously, not following my prompts) Psychiatric: other (unable to assess) CBC and BMP: 05/07/18 04:40 05/07/18 04:40 ABG, PT/INR, D-dimer: ABG POC ABG pH 7.505 (7.35-7.45) H 05/04/18 21: POC ABG pCO2 38.5 (35-45) 05/04/18 21: POC ABG pO2 82 (80-105) 05/04/18 21: POC ABG HCO3 30.4 (22-26 mml/L) 05/04/18 21: POC ABG Total CO2 32 (23-27mmol/L) 05/04/18 21:19 POC ABG O2 Sat 97 05/04/18 21:19 PT/INR, D-dimer PT 13.8 Sec. (12.2-14.9) 04/29/18 21:03 INR 1.00 (0.87-1.13) 04/29/18 21:03 Abnormal lab findings: Abnormal Labs 04/09/18 04/09/18 04/09/18 23:16 23:16 23:16 WBC 13.6 H RBC Hgb Hct MCHC RDW Plt Count Lymph % (Auto) 9.4 L Bath % (Auto) Lymph # Bath # Seg Neutrophils % 87.3 H Seg Neutrophils # 11.9 H POC ABG pH POC ABG pCO2 POC ABG pO2 Sodium 132 L Potassium Chloride 92.7 L Carbon Dioxide BUN Creatinine Glucose 143 H POC Glucose Hemoglobin A1c Lactic Acid 2.10 H* Calcium Phosphorus Magnesium Total Bilirubin 2.20 H Direct Bilirubin AST 107 H Total Creatine Kinase CK-MB (CK-2) C-Reactive Protein Total Protein Albumin TSH Free T4 04/10/18 04/10/18 04/10/18 00:38 00:55 01:13 WBC RBC Hgb Hct MCHC RDW Plt Count Lymph % (Auto) Bath % (Auto) Lymph # Bath # Seg Neutrophils % Seg Neutrophils # POC ABG pH POC ABG pCO2 POC ABG pO2 Sodium Potassium Chloride Carbon Dioxide BUN Creatinine Glucose POC Glucose 117 H 121 H Hemoglobin A1c Lactic Acid 2.10 H* Calcium Phosphorus Magnesium Total Bilirubin Direct Bilirubin AST Total Creatine Kinase CK-MB (CK-2) C-Reactive Protein Total Protein Albumin TSH Free T4 04/10/18 04/10/18 04/10/18 02:10 03:51 04:07 WBC 14.0 H RBC Hgb Hct MCHC RDW Plt Count Lymph % (Auto) 7.5 L Bath % (Auto) Lymph # 1.1 L Bath # 1.0 H Seg Neutrophils % 84.9 H Seg Neutrophils # 11.8 H POC ABG pH POC ABG pCO2 POC ABG pO2 Sodium Potassium Chloride Carbon Dioxide BUN Creatinine Glucose POC Glucose 153 H 158 H Hemoglobin A1c Lactic Acid Calcium Phosphorus Magnesium Total Bilirubin Direct Bilirubin AST Total Creatine Kinase CK-MB (CK-2) C-Reactive Protein Total Protein Albumin TSH Free T4 04/10/18 04/10/18 04/10/18 04:07 06:56 09:48 WBC RBC Hgb Hct MCHC RDW Plt Count Lymph % (Auto) Bath % (Auto) Lymph # Bath # Seg Neutrophils % Seg Neutrophils # POC ABG pH POC ABG pCO2 POC ABG pO2 Sodium 130 L Potassium Chloride 93.4 L Carbon Dioxide BUN Creatinine Glucose 180 H POC Glucose 251 H 245 H Hemoglobin A1c Lactic Acid Calcium 7.9 L D Phosphorus Magnesium Total Bilirubin Direct Bilirubin AST Total Creatine Kinase 7857 H CK-MB (CK-2) 34.3 H C-Reactive Protein Total Protein Albumin TSH Free T4 04/10/18 04/10/18 04/10/18 10:37 12:44 17:31 WBC RBC Hgb Hct MCHC RDW Plt Count Lymph % (Auto) Bath % (Auto) Lymph # Bath # Seg Neutrophils % Seg Neutrophils # POC ABG pH POC ABG pCO2 45.6 H POC ABG pO2 374 H Sodium Potassium Chloride Carbon Dioxide BUN Creatinine Glucose POC Glucose 348 H Hemoglobin A1c Lactic Acid Calcium Phosphorus Magnesium Total Bilirubin Direct Bilirubin AST Total Creatine Kinase 9880 H CK-MB (CK-2) 30.0 H C-Reactive Protein Total Protein Albumin TSH Free T4 04/10/18 04/11/18 04/11/18 23:36 03:52 04:28 WBC 12.2 H RBC Hgb Hct MCHC RDW Plt Count 132 L Lymph % (Auto) Bath % (Auto) 10.2 H Lymph # Bath # 1.2 H Seg Neutrophils % 75.1 H Seg Neutrophils # 9.1 H POC ABG pH 7.495 H POC ABG pCO2 32.4 L POC ABG pO2 Sodium Potassium Chloride Carbon Dioxide BUN Creatinine Glucose POC Glucose 148 H Hemoglobin A1c Lactic Acid Calcium Phosphorus Magnesium Total Bilirubin Direct Bilirubin AST Total Creatine Kinase CK-MB (CK-2) C-Reactive Protein Total Protein Albumin TSH Free T4 04/11/18 04/11/18 04/11/18 04:28 04:28 05:22 WBC RBC Hgb Hct MCHC RDW Plt Count Lymph % (Auto) Bath % (Auto) Lymph # Bath # Seg Neutrophils % Seg Neutrophils # POC ABG pH POC ABG pCO2 POC ABG pO2 Sodium 133 L Potassium 3.5 L Chloride 95.1 L Carbon Dioxide BUN 7 L Creatinine Glucose 206 H POC Glucose 178 H Hemoglobin A1c 6.4 H Lactic Acid Calcium 7.7 L Phosphorus 1.80 L Magnesium 1.50 L Total Bilirubin 4.10 H Direct Bilirubin AST 168 H Total Creatine Kinase 9352 H CK-MB (CK-2) C-Reactive Protein Total Protein Albumin 3.4 L TSH Free T4 04/11/18 04/11/18 04/11/18 11:28 13:43 17:30 WBC RBC Hgb Hct MCHC RDW Plt Count Lymph % (Auto) Bath % (Auto) Lymph # Bath # Seg Neutrophils % Seg Neutrophils # POC ABG pH POC ABG pCO2 POC ABG pO2 Sodium Potassium Chloride Carbon Dioxide BUN Creatinine Glucose POC Glucose 196 H 142 H Hemoglobin A1c Lactic Acid Calcium Phosphorus Magnesium Total Bilirubin Direct Bilirubin AST Total Creatine Kinase CK-MB (CK-2) C-Reactive Protein 7.20 H Total Protein Albumin TSH Free T4 04/11/18 04/11/18 04/12/18 18:59 23:23 04:00 WBC RBC Hgb Hct MCHC RDW Plt Count Lymph % (Auto) Bath % (Auto) Lymph # Bath # Seg Neutrophils % Seg Neutrophils # POC ABG pH 7.489 H POC ABG pCO2 34.5 L POC ABG pO2 Sodium Potassium 3.3 L Chloride Carbon Dioxide BUN 6 L Creatinine Glucose 151 H POC Glucose 129 H Hemoglobin A1c Lactic Acid Calcium 7.3 L Phosphorus 2.00 L Magnesium Total Bilirubin 2.80 H Direct Bilirubin AST 121 H Total Creatine Kinase 5177 H CK-MB (CK-2) C-Reactive Protein Total Protein 5.9 L Albumin 3.1 L TSH Free T4 04/12/18 04/12/18 04/12/18 04:00 04:04 05:21 WBC RBC Hgb Hct 34.9 L MCHC 35 H RDW Plt Count 128 L Lymph % (Auto) Bath % (Auto) 10.6 H Lymph # Bath # 0.9 H Seg Neutrophils % Seg Neutrophils # POC ABG pH 7.454 H POC ABG pCO2 POC ABG pO2 Sodium Potassium Chloride Carbon Dioxide BUN Creatinine Glucose POC Glucose 136 H Hemoglobin A1c Lactic Acid Calcium Phosphorus Magnesium Total Bilirubin Direct Bilirubin AST Total Creatine Kinase CK-MB (CK-2) C-Reactive Protein Total Protein Albumin TSH Free T4 04/12/18 04/13/18 04/13/18 11:23 00:21 04:57 WBC RBC Hgb Hct MCHC RDW Plt Count Lymph % (Auto) Bath % (Auto) Lymph # Bath # Seg Neutrophils % Seg Neutrophils # POC ABG pH POC ABG pCO2 34.7 L POC ABG pO2 125 H Sodium Potassium Chloride Carbon Dioxide BUN Creatinine Glucose POC Glucose 166 H 143 H Hemoglobin A1c Lactic Acid Calcium Phosphorus Magnesium Total Bilirubin Direct Bilirubin AST Total Creatine Kinase CK-MB (CK-2) C-Reactive Protein Total Protein Albumin TSH Free T4 04/13/18 04/13/18 04/13/18 05:02 05:02 12:16 WBC RBC Hgb Hct MCHC RDW Plt Count Lymph % (Auto) Bath % (Auto) Lymph # Bath # Seg Neutrophils % Seg Neutrophils # POC ABG pH POC ABG pCO2 POC ABG pO2 Sodium Potassium Chloride Carbon Dioxide BUN Creatinine Glucose POC Glucose 161 H 170 H Hemoglobin A1c Lactic Acid Calcium Phosphorus Magnesium Total Bilirubin Direct Bilirubin AST Total Creatine Kinase 3456 H CK-MB (CK-2) C-Reactive Protein Total Protein Albumin TSH Free T4 04/13/18 04/13/18 04/14/18 18:52 23:09 04:35 WBC RBC Hgb Hct MCHC RDW Plt Count Lymph % (Auto) Bath % (Auto) Lymph # Bath # Seg Neutrophils % Seg Neutrophils # POC ABG pH 7.467 H POC ABG pCO2 POC ABG pO2 Sodium Potassium Chloride Carbon Dioxide BUN Creatinine Glucose POC Glucose 196 H 219 H Hemoglobin A1c Lactic Acid Calcium Phosphorus Magnesium Total Bilirubin Direct Bilirubin AST Total Creatine Kinase CK-MB (CK-2) C-Reactive Protein Total Protein Albumin TSH Free T4 04/14/18 04/14/18 04/14/18 05:00 05:26 11:20 WBC RBC Hgb Hct MCHC RDW Plt Count Lymph % (Auto) Bath % (Auto) Lymph # Bath # Seg Neutrophils % Seg Neutrophils # POC ABG pH POC ABG pCO2 POC ABG pO2 Sodium Potassium Chloride Carbon Dioxide BUN Creatinine Glucose POC Glucose 249 H 260 H Hemoglobin A1c Lactic Acid Calcium Phosphorus Magnesium Total Bilirubin Direct Bilirubin AST Total Creatine Kinase 2247 H CK-MB (CK-2) C-Reactive Protein Total Protein Albumin TSH Free T4 04/14/18 04/14/18 04/14/18 17:04 17:51 23:53 WBC RBC Hgb Hct MCHC RDW Plt Count Lymph % (Auto) Bath % (Auto) Lymph # Bath # Seg Neutrophils % Seg Neutrophils # POC ABG pH POC ABG pCO2 POC ABG pO2 79 L Sodium Potassium Chloride Carbon Dioxide BUN Creatinine Glucose POC Glucose 284 H 203 H Hemoglobin A1c Lactic Acid Calcium Phosphorus Magnesium Total Bilirubin Direct Bilirubin AST Total Creatine Kinase CK-MB (CK-2) C-Reactive Protein Total Protein Albumin TSH Free T4 04/15/18 04/15/18 04/15/18 04:24 05:26 12:56 WBC RBC Hgb Hct MCHC RDW Plt Count Lymph % (Auto) Bath % (Auto) Lymph # Bath # Seg Neutrophils % Seg Neutrophils # POC ABG pH POC ABG pCO2 45.4 H POC ABG pO2 78 L Sodium Potassium Chloride Carbon Dioxide BUN Creatinine Glucose POC Glucose 194 H 200 H Hemoglobin A1c Lactic Acid Calcium Phosphorus Magnesium Total Bilirubin Direct Bilirubin AST Total Creatine Kinase CK-MB (CK-2) C-Reactive Protein Total Protein Albumin TSH Free T4 04/15/18 04/15/18 04/16/18 17:46 23:57 05:08 WBC RBC Hgb Hct MCHC RDW Plt Count Lymph % (Auto) Bath % (Auto) Lymph # Bath # Seg Neutrophils % Seg Neutrophils # POC ABG pH POC ABG pCO2 POC ABG pO2 Sodium Potassium Chloride Carbon Dioxide BUN Creatinine Glucose POC Glucose 118 H 204 H 221 H Hemoglobin A1c Lactic Acid Calcium Phosphorus Magnesium Total Bilirubin Direct Bilirubin AST Total Creatine Kinase CK-MB (CK-2) C-Reactive Protein Total Protein Albumin TSH Free T4 04/16/18 04/16/18 04/16/18 05:16 12:23 13:07 WBC RBC Hgb Hct MCHC RDW Plt Count Lymph % (Auto) Bath % (Auto) Lymph # Bath # Seg Neutrophils % Seg Neutrophils # POC ABG pH 7.456 H POC ABG pCO2 46.7 H POC ABG pO2 Sodium Potassium Chloride Carbon Dioxide BUN Creatinine Glucose POC Glucose 271 H Hemoglobin A1c Lactic Acid Calcium Phosphorus Magnesium Total Bilirubin Direct Bilirubin AST Total Creatine Kinase CK-MB (CK-2) C-Reactive Protein Total Protein Albumin TSH Free T4 04/16/18 04/17/18 04/17/18 19:14 00:08 05:46 WBC RBC Hgb Hct MCHC RDW Plt Count Lymph % (Auto) Bath % (Auto) Lymph # Bath # Seg Neutrophils % Seg Neutrophils # POC ABG pH POC ABG pCO2 POC ABG pO2 Sodium Potassium Chloride Carbon Dioxide BUN Creatinine Glucose POC Glucose 221 H 238 H 274 H Hemoglobin A1c Lactic Acid Calcium Phosphorus Magnesium Total Bilirubin Direct Bilirubin AST Total Creatine Kinase CK-MB (CK-2) C-Reactive Protein Total Protein Albumin TSH Free T4 04/17/18 04/17/18 04/17/18 13:50 13:59 14:20 WBC RBC Hgb Hct MCHC RDW Plt Count Lymph % (Auto) Bath % (Auto) Lymph # Bath # Seg Neutrophils % Seg Neutrophils # POC ABG pH 7.474 H POC ABG pCO2 POC ABG pO2 Sodium Potassium 3.4 L Chloride 93.6 L Carbon Dioxide 33 H BUN Creatinine Glucose 305 H POC Glucose 315 H Hemoglobin A1c Lactic Acid Calcium Phosphorus Magnesium Total Bilirubin Direct Bilirubin AST Total Creatine Kinase CK-MB (CK-2) C-Reactive Protein Total Protein Albumin TSH Free T4 04/17/18 04/17/18 04/18/18 17:04 23:26 04:20 WBC RBC Hgb Hct MCHC RDW Plt Count Lymph % (Auto) Bath % (Auto) Lymph # Bath # Seg Neutrophils % Seg Neutrophils # POC ABG pH 7.473 H POC ABG pCO2 POC ABG pO2 Sodium Potassium Chloride Carbon Dioxide BUN Creatinine Glucose POC Glucose 280 H 284 H Hemoglobin A1c Lactic Acid Calcium Phosphorus Magnesium Total Bilirubin Direct Bilirubin AST Total Creatine Kinase CK-MB (CK-2) C-Reactive Protein Total Protein Albumin TSH Free T4 04/18/18 04/18/18 04/18/18 05:14 08:32 11:00 WBC RBC Hgb Hct MCHC RDW Plt Count Lymph % (Auto) Bath % (Auto) Lymph # Bath # Seg Neutrophils % Seg Neutrophils # POC ABG pH POC ABG pCO2 POC ABG pO2 Sodium Potassium Chloride Carbon Dioxide BUN Creatinine Glucose POC Glucose 286 H 296 H Hemoglobin A1c Lactic Acid Calcium Phosphorus Magnesium Total Bilirubin Direct Bilirubin 0.3 H AST 87 H Total Creatine Kinase CK-MB (CK-2) C-Reactive Protein Total Protein Albumin 3.7 L TSH Free T4 04/18/18 04/18/18 04/19/18 12:03 18:15 00:08 WBC RBC Hgb Hct MCHC RDW Plt Count Lymph % (Auto) Bath % (Auto) Lymph # Bath # Seg Neutrophils % Seg Neutrophils # POC ABG pH POC ABG pCO2 POC ABG pO2 Sodium Potassium Chloride Carbon Dioxide BUN Creatinine Glucose POC Glucose 353 H 327 H 331 H Hemoglobin A1c Lactic Acid Calcium Phosphorus Magnesium Total Bilirubin Direct Bilirubin AST Total Creatine Kinase CK-MB (CK-2) C-Reactive Protein Total Protein Albumin TSH Free T4 04/19/18 04/19/18 04/19/18 04:46 05:26 11:48 WBC RBC Hgb Hct MCHC RDW Plt Count Lymph % (Auto) Bath % (Auto) Lymph # Bath # Seg Neutrophils % Seg Neutrophils # POC ABG pH 7.497 H POC ABG pCO2 POC ABG pO2 119 H Sodium Potassium Chloride Carbon Dioxide BUN Creatinine Glucose POC Glucose 323 H 266 H Hemoglobin A1c Lactic Acid Calcium Phosphorus Magnesium Total Bilirubin Direct Bilirubin AST Total Creatine Kinase CK-MB (CK-2) C-Reactive Protein Total Protein Albumin TSH Free T4 04/19/18 04/19/18 04/20/18 17:52 23:37 00:07 WBC RBC Hgb Hct MCHC RDW Plt Count Lymph % (Auto) Bath % (Auto) Lymph # Bath # Seg Neutrophils % Seg Neutrophils # POC ABG pH POC ABG pCO2 POC ABG pO2 Sodium Potassium Chloride Carbon Dioxide BUN Creatinine Glucose POC Glucose 284 H 285 H 312 H Hemoglobin A1c Lactic Acid Calcium Phosphorus Magnesium Total Bilirubin Direct Bilirubin AST Total Creatine Kinase CK-MB (CK-2) C-Reactive Protein Total Protein Albumin TSH Free T4 04/20/18 04/20/18 04/20/18 04:09 04:09 04:37 WBC RBC Hgb Hct 34.7 L MCHC 35 H RDW Plt Count Lymph % (Auto) Bath % (Auto) Lymph # Bath # Seg Neutrophils % Seg Neutrophils # POC ABG pH POC ABG pCO2 POC ABG pO2 Sodium Potassium 3.5 L Chloride 95.7 L Carbon Dioxide 34 H BUN Creatinine Glucose 286 H POC Glucose 267 H Hemoglobin A1c Lactic Acid Calcium Phosphorus Magnesium Total Bilirubin Direct Bilirubin AST Total Creatine Kinase CK-MB (CK-2) C-Reactive Protein Total Protein Albumin TSH Free T4 04/20/18 04/20/18 04/20/18 12:32 17:54 21:07 WBC RBC Hgb Hct MCHC RDW Plt Count Lymph % (Auto) Bath % (Auto) Lymph # Bath # Seg Neutrophils % Seg Neutrophils # POC ABG pH POC ABG pCO2 POC ABG pO2 Sodium Potassium Chloride Carbon Dioxide BUN Creatinine Glucose POC Glucose 220 H 298 H 187 H Hemoglobin A1c Lactic Acid Calcium Phosphorus Magnesium Total Bilirubin Direct Bilirubin AST Total Creatine Kinase CK-MB (CK-2) C-Reactive Protein Total Protein Albumin TSH Free T4 04/21/18 04/21/18 04/21/18 00:04 05:00 05:41 WBC RBC Hgb Hct MCHC RDW Plt Count Lymph % (Auto) Bath % (Auto) Lymph # Bath # Seg Neutrophils % Seg Neutrophils # POC ABG pH POC ABG pCO2 POC ABG pO2 Sodium Potassium Chloride 95.2 L Carbon Dioxide 34 H BUN Creatinine Glucose 179 H POC Glucose 183 H 166 H Hemoglobin A1c Lactic Acid Calcium Phosphorus Magnesium Total Bilirubin Direct Bilirubin AST Total Creatine Kinase CK-MB (CK-2) C-Reactive Protein Total Protein Albumin TSH Free T4 04/21/18 04/21/18 04/21/18 11:55 18:09 23:36 WBC RBC Hgb Hct MCHC RDW Plt Count Lymph % (Auto) Bath % (Auto) Lymph # Bath # Seg Neutrophils % Seg Neutrophils # POC ABG pH POC ABG pCO2 POC ABG pO2 Sodium Potassium Chloride Carbon Dioxide BUN Creatinine Glucose POC Glucose 219 H 247 H 229 H Hemoglobin A1c Lactic Acid Calcium Phosphorus Magnesium Total Bilirubin Direct Bilirubin AST Total Creatine Kinase CK-MB (CK-2) C-Reactive Protein Total Protein Albumin TSH Free T4 04/22/18 04/22/18 04/22/18 04:07 04:07 05:08 WBC RBC Hgb Hct MCHC 35 H RDW 15.3 H Plt Count Lymph % (Auto) Bath % (Auto) Lymph # Bath # Seg Neutrophils % Seg Neutrophils # POC ABG pH POC ABG pCO2 POC ABG pO2 Sodium Potassium Chloride 97.4 L Carbon Dioxide 31 H BUN Creatinine Glucose 177 H POC Glucose 200 H Hemoglobin A1c Lactic Acid Calcium Phosphorus Magnesium Total Bilirubin Direct Bilirubin AST Total Creatine Kinase CK-MB (CK-2) C-Reactive Protein Total Protein Albumin TSH Free T4 04/22/18 04/22/18 04/23/18 12:15 18:04 04:55 WBC RBC Hgb Hct MCHC RDW Plt Count Lymph % (Auto) Bath % (Auto) Lymph # Bath # Seg Neutrophils % Seg Neutrophils # POC ABG pH POC ABG pCO2 POC ABG pO2 Sodium Potassium Chloride Carbon Dioxide BUN 23 H Creatinine Glucose 274 H POC Glucose 189 H 191 H Hemoglobin A1c Lactic Acid Calcium Phosphorus Magnesium Total Bilirubin Direct Bilirubin AST Total Creatine Kinase CK-MB (CK-2) C-Reactive Protein Total Protein Albumin TSH Free T4 04/23/18 04/23/18 04/23/18 05:21 11:06 17:46 WBC RBC Hgb Hct MCHC RDW Plt Count Lymph % (Auto) Bath % (Auto) Lymph # Bath # Seg Neutrophils % Seg Neutrophils # POC ABG pH POC ABG pCO2 POC ABG pO2 Sodium Potassium Chloride Carbon Dioxide BUN Creatinine Glucose POC Glucose 143 H 176 H 142 H Hemoglobin A1c Lactic Acid Calcium Phosphorus Magnesium Total Bilirubin Direct Bilirubin AST Total Creatine Kinase CK-MB (CK-2) C-Reactive Protein Total Protein Albumin TSH Free T4 04/23/18 04/24/18 04/24/18 23:35 06:02 11:37 WBC RBC Hgb Hct MCHC RDW Plt Count Lymph % (Auto) Bath % (Auto) Lymph # Bath # Seg Neutrophils % Seg Neutrophils # POC ABG pH POC ABG pCO2 POC ABG pO2 Sodium Potassium Chloride Carbon Dioxide BUN Creatinine Glucose POC Glucose 127 H 175 H 188 H Hemoglobin A1c Lactic Acid Calcium Phosphorus Magnesium Total Bilirubin Direct Bilirubin AST Total Creatine Kinase CK-MB (CK-2) C-Reactive Protein Total Protein Albumin TSH Free T4 04/24/18 04/24/18 04/24/18 16:50 18:40 20:23 WBC RBC Hgb Hct MCHC RDW Plt Count Lymph % (Auto) Bath % (Auto) Lymph # Bath # Seg Neutrophils % Seg Neutrophils # POC ABG pH POC ABG pCO2 POC ABG pO2 Sodium Potassium Chloride Carbon Dioxide BUN Creatinine Glucose POC Glucose 134 H 148 H Hemoglobin A1c Lactic Acid Calcium Phosphorus Magnesium Total Bilirubin Direct Bilirubin AST Total Creatine Kinase CK-MB (CK-2) C-Reactive Protein Total Protein Albumin TSH 47.760 H Free T4 0.10 L 04/24/18 04/25/18 04/25/18 23:14 05:22 05:22 WBC RBC Hgb Hct MCHC 35 H RDW 15.4 H Plt Count Lymph % (Auto) Bath % (Auto) Lymph # Bath # Seg Neutrophils % Seg Neutrophils # POC ABG pH POC ABG pCO2 POC ABG pO2 Sodium 136 L Potassium Chloride 95.0 L Carbon Dioxide BUN Creatinine Glucose 210 H POC Glucose 145 H Hemoglobin A1c Lactic Acid Calcium Phosphorus Magnesium Total Bilirubin Direct Bilirubin AST Total Creatine Kinase CK-MB (CK-2) C-Reactive Protein Total Protein Albumin TSH Free T4 04/25/18 04/25/18 04/25/18 05:44 12:19 13:06 WBC RBC Hgb Hct MCHC RDW Plt Count Lymph % (Auto) Bath % (Auto) Lymph # Bath # Seg Neutrophils % Seg Neutrophils # POC ABG pH 7.471 H POC ABG pCO2 POC ABG pO2 115 H Sodium Potassium Chloride Carbon Dioxide BUN Creatinine Glucose POC Glucose 176 H 231 H Hemoglobin A1c Lactic Acid Calcium Phosphorus Magnesium Total Bilirubin Direct Bilirubin AST Total Creatine Kinase CK-MB (CK-2) C-Reactive Protein Total Protein Albumin TSH Free T4 04/25/18 04/25/18 04/26/18 17:54 20:09 00:01 WBC RBC Hgb Hct MCHC RDW Plt Count Lymph % (Auto) Bath % (Auto) Lymph # Bath # Seg Neutrophils % Seg Neutrophils # POC ABG pH POC ABG pCO2 POC ABG pO2 Sodium Potassium Chloride Carbon Dioxide BUN Creatinine Glucose POC Glucose 196 H 119 H 174 H Hemoglobin A1c Lactic Acid Calcium Phosphorus Magnesium Total Bilirubin Direct Bilirubin AST Total Creatine Kinase CK-MB (CK-2) C-Reactive Protein Total Protein Albumin TSH Free T4 04/26/18 04/26/18 04/26/18 05:10 12:03 15:20 WBC RBC Hgb Hct MCHC RDW Plt Count Lymph % (Auto) Bath % (Auto) Lymph # Bath # Seg Neutrophils % Seg Neutrophils # POC ABG pH POC ABG pCO2 POC ABG pO2 Sodium Potassium Chloride Carbon Dioxide BUN Creatinine Glucose POC Glucose 212 H 222 H 113 H Hemoglobin A1c Lactic Acid Calcium Phosphorus Magnesium Total Bilirubin Direct Bilirubin AST Total Creatine Kinase CK-MB (CK-2) C-Reactive Protein Total Protein Albumin TSH Free T4 04/26/18 04/26/18 04/27/18 18:08 23:39 05:10 WBC RBC Hgb Hct MCHC RDW Plt Count Lymph % (Auto) Bath % (Auto) Lymph # Bath # Seg Neutrophils % Seg Neutrophils # POC ABG pH POC ABG pCO2 POC ABG pO2 Sodium Potassium Chloride Carbon Dioxide BUN Creatinine Glucose POC Glucose 110 H 165 H 137 H Hemoglobin A1c Lactic Acid Calcium Phosphorus Magnesium Total Bilirubin Direct Bilirubin AST Total Creatine Kinase CK-MB (CK-2) C-Reactive Protein Total Protein Albumin TSH Free T4 04/27/18 04/27/18 04/27/18 10:04 11:23 17:36 WBC RBC Hgb Hct MCHC RDW Plt Count Lymph % (Auto) Bath % (Auto) Lymph # Bath # Seg Neutrophils % Seg Neutrophils # POC ABG pH POC ABG pCO2 POC ABG pO2 Sodium Potassium Chloride Carbon Dioxide BUN Creatinine Glucose POC Glucose 190 H 258 H 198 H Hemoglobin A1c Lactic Acid Calcium Phosphorus Magnesium Total Bilirubin Direct Bilirubin AST Total Creatine Kinase CK-MB (CK-2) C-Reactive Protein Total Protein Albumin TSH Free T4 04/27/18 04/28/18 04/28/18 23:23 05:19 13:06 WBC RBC Hgb Hct MCHC RDW Plt Count Lymph % (Auto) Bath % (Auto) Lymph # Bath # Seg Neutrophils % Seg Neutrophils # POC ABG pH POC ABG pCO2 POC ABG pO2 Sodium Potassium Chloride Carbon Dioxide BUN Creatinine Glucose POC Glucose 131 H 178 H 194 H Hemoglobin A1c Lactic Acid Calcium Phosphorus Magnesium Total Bilirubin Direct Bilirubin AST Total Creatine Kinase CK-MB (CK-2) C-Reactive Protein Total Protein Albumin TSH Free T4 04/28/18 04/29/18 04/29/18 16:59 00:24 05:49 WBC RBC Hgb Hct MCHC RDW Plt Count Lymph % (Auto) Bath % (Auto) Lymph # Bath # Seg Neutrophils % Seg Neutrophils # POC ABG pH POC ABG pCO2 POC ABG pO2 Sodium Potassium Chloride Carbon Dioxide BUN Creatinine Glucose POC Glucose 155 H 166 H 226 H Hemoglobin A1c Lactic Acid Calcium Phosphorus Magnesium Total Bilirubin Direct Bilirubin AST Total Creatine Kinase CK-MB (CK-2) C-Reactive Protein Total Protein Albumin TSH Free T4 04/29/18 04/29/18 04/29/18 12:12 13:29 13:29 WBC RBC Hgb Hct 34.8 L MCHC RDW Plt Count Lymph % (Auto) Bath % (Auto) 9.8 H Lymph # Bath # Seg Neutrophils % Seg Neutrophils # POC ABG pH POC ABG pCO2 POC ABG pO2 Sodium 135 L Potassium Chloride Carbon Dioxide BUN Creatinine Glucose 214 H POC Glucose 217 H Hemoglobin A1c Lactic Acid Calcium Phosphorus Magnesium Total Bilirubin Direct Bilirubin AST Total Creatine Kinase CK-MB (CK-2) C-Reactive Protein Total Protein Albumin TSH Free T4 04/29/18 04/29/18 04/30/18 21:56 23:49 05:15 WBC RBC Hgb Hct MCHC RDW Plt Count Lymph % (Auto) Bath % (Auto) Lymph # Bath # Seg Neutrophils % Seg Neutrophils # POC ABG pH POC ABG pCO2 POC ABG pO2 Sodium Potassium Chloride Carbon Dioxide BUN Creatinine Glucose POC Glucose 129 H 148 H 113 H Hemoglobin A1c Lactic Acid Calcium Phosphorus Magnesium Total Bilirubin Direct Bilirubin AST Total Creatine Kinase CK-MB (CK-2) C-Reactive Protein Total Protein Albumin TSH Free T4 04/30/18 04/30/18 04/30/18 05:28 12:10 18:12 WBC RBC Hgb Hct MCHC RDW Plt Count Lymph % (Auto) Bath % (Auto) Lymph # Bath # Seg Neutrophils % Seg Neutrophils # POC ABG pH POC ABG pCO2 POC ABG pO2 Sodium Potassium Chloride Carbon Dioxide BUN Creatinine Glucose POC Glucose 118 H 159 H 149 H Hemoglobin A1c Lactic Acid Calcium Phosphorus Magnesium Total Bilirubin Direct Bilirubin AST Total Creatine Kinase CK-MB (CK-2) C-Reactive Protein Total Protein Albumin TSH Free T4 04/30/18 04/30/18 05/01/18 20:12 23:31 05:48 WBC RBC Hgb Hct MCHC RDW Plt Count Lymph % (Auto) Bath % (Auto) Lymph # Bath # Seg Neutrophils % Seg Neutrophils # POC ABG pH POC ABG pCO2 POC ABG pO2 Sodium Potassium Chloride Carbon Dioxide BUN Creatinine Glucose POC Glucose 187 H 208 H 172 H Hemoglobin A1c Lactic Acid Calcium Phosphorus Magnesium Total Bilirubin Direct Bilirubin AST Total Creatine Kinase CK-MB (CK-2) C-Reactive Protein Total Protein Albumin TSH Free T4 05/01/18 05/01/18 05/01/18 12:25 15:05 18:06 WBC 13.3 H RBC Hgb 11.3 L Hct 33.1 L MCHC RDW Plt Count Lymph % (Auto) 9.8 L Bath % (Auto) 7.7 H Lymph # Bath # 1.0 H Seg Neutrophils % 81.9 H Seg Neutrophils # 10.9 H POC ABG pH POC ABG pCO2 POC ABG pO2 Sodium Potassium Chloride Carbon Dioxide BUN Creatinine Glucose POC Glucose 151 H 227 H Hemoglobin A1c Lactic Acid Calcium Phosphorus Magnesium Total Bilirubin Direct Bilirubin AST Total Creatine Kinase CK-MB (CK-2) C-Reactive Protein Total Protein Albumin TSH Free T4 05/01/18 05/02/18 05/02/18 23:24 04:56 04:56 WBC 12.9 H RBC Hgb 10.9 L Hct 32.8 L MCHC RDW 15.5 H Plt Count Lymph % (Auto) Bath % (Auto) Lymph # Bath # Seg Neutrophils % Seg Neutrophils # POC ABG pH POC ABG pCO2 POC ABG pO2 Sodium 136 L Potassium Chloride 94.8 L Carbon Dioxide BUN Creatinine Glucose 175 H POC Glucose 157 H Hemoglobin A1c Lactic Acid Calcium Phosphorus Magnesium Total Bilirubin Direct Bilirubin AST Total Creatine Kinase CK-MB (CK-2) C-Reactive Protein Total Protein Albumin TSH Free T4 05/02/18 05/02/18 05/02/18 05:24 12:36 18:14 WBC RBC Hgb Hct MCHC RDW Plt Count Lymph % (Auto) Bath % (Auto) Lymph # Bath # Seg Neutrophils % Seg Neutrophils # POC ABG pH POC ABG pCO2 POC ABG pO2 Sodium Potassium Chloride Carbon Dioxide BUN Creatinine Glucose POC Glucose 178 H 269 H 209 H Hemoglobin A1c Lactic Acid Calcium Phosphorus Magnesium Total Bilirubin Direct Bilirubin AST Total Creatine Kinase CK-MB (CK-2) C-Reactive Protein Total Protein Albumin TSH Free T4 05/03/18 05/03/18 05/03/18 00:15 03:20 03:20 WBC RBC 3.54 L Hgb 11.0 L Hct 32.0 L MCHC 35 H RDW 15.5 H Plt Count Lymph % (Auto) Bath % (Auto) Lymph # Bath # Seg Neutrophils % Seg Neutrophils # POC ABG pH POC ABG pCO2 POC ABG pO2 Sodium 135 L Potassium Chloride 95.8 L Carbon Dioxide BUN Creatinine 0.7 L Glucose 226 H POC Glucose 227 H Hemoglobin A1c Lactic Acid Calcium Phosphorus Magnesium Total Bilirubin Direct Bilirubin AST Total Creatine Kinase CK-MB (CK-2) C-Reactive Protein Total Protein Albumin TSH Free T4 05/03/18 05/03/18 05/03/18 05:26 08:53 11:46 WBC RBC Hgb Hct MCHC RDW Plt Count Lymph % (Auto) Bath % (Auto) Lymph # Bath # Seg Neutrophils % Seg Neutrophils # POC ABG pH POC ABG pCO2 POC ABG pO2 Sodium Potassium Chloride Carbon Dioxide BUN Creatinine Glucose POC Glucose 194 H 216 H 260 H Hemoglobin A1c Lactic Acid Calcium Phosphorus Magnesium Total Bilirubin Direct Bilirubin AST Total Creatine Kinase CK-MB (CK-2) C-Reactive Protein Total Protein Albumin TSH Free T4 05/03/18 05/04/18 05/04/18 18:00 00:29 05:07 WBC RBC Hgb Hct MCHC RDW Plt Count Lymph % (Auto) Bath % (Auto) Lymph # Bath # Seg Neutrophils % Seg Neutrophils # POC ABG pH POC ABG pCO2 POC ABG pO2 Sodium Potassium Chloride Carbon Dioxide BUN Creatinine Glucose POC Glucose 261 H 226 H 212 H Hemoglobin A1c Lactic Acid Calcium Phosphorus Magnesium Total Bilirubin Direct Bilirubin AST Total Creatine Kinase CK-MB (CK-2) C-Reactive Protein Total Protein Albumin TSH Free T4 05/04/18 05/04/18 05/04/18 12:16 17:31 21:19 WBC RBC Hgb Hct MCHC RDW Plt Count Lymph % (Auto) Bath % (Auto) Lymph # Bath # Seg Neutrophils % Seg Neutrophils # POC ABG pH 7.505 H POC ABG pCO2 POC ABG pO2 Sodium Potassium Chloride Carbon Dioxide BUN Creatinine Glucose POC Glucose 239 H 168 H Hemoglobin A1c Lactic Acid Calcium Phosphorus Magnesium Total Bilirubin Direct Bilirubin AST Total Creatine Kinase CK-MB (CK-2) C-Reactive Protein Total Protein Albumin TSH Free T4 05/04/18 05/05/18 05/05/18 23:53 04:27 04:27 WBC RBC Hgb 11.6 L Hct 34.2 L MCHC RDW 15.4 H Plt Count Lymph % (Auto) Bath % (Auto) 11.8 H Lymph # Bath # 1.0 H Seg Neutrophils % Seg Neutrophils # POC ABG pH POC ABG pCO2 POC ABG pO2 Sodium Potassium Chloride 95.7 L Carbon Dioxide BUN Creatinine 0.7 L Glucose 225 H POC Glucose 170 H Hemoglobin A1c Lactic Acid Calcium Phosphorus Magnesium Total Bilirubin Direct Bilirubin AST Total Creatine Kinase CK-MB (CK-2) C-Reactive Protein Total Protein Albumin TSH Free T4 05/05/18 12:29 WBC RBC Hgb Hct MCHC RDW Plt Count Lymph % (Auto) Bath % (Auto) Lymph # Bath # Seg Neutrophils % Seg Neutrophils # POC ABG pH POC ABG pCO2 POC ABG pO2 Sodium Potassium Chloride Carbon Dioxide BUN Creatinine Glucose POC Glucose 246 H Hemoglobin A1c Lactic Acid Calcium Phosphorus Magnesium Total Bilirubin Direct Bilirubin AST Total Creatine Kinase CK-MB (CK-2) C-Reactive Protein Total Protein Albumin TSH Free T4 [employer] [facility] notes reviewed: RT
[2018-05-05] MEDS: MIRALAX 3350 PO SCH (21:25)
[2018-05-06] MEDS: HumaLOG SUB-Q SCH ×3 (00:35→11:56)
[2018-05-06] MEDS: ROBINUL FEEDTUBE SCH ×2 (01:29→11:55)
[2018-05-06] MEDS: SYNTHROID PO SCH (05:36)
[2018-05-06] MEDS: APRESOLINE PO SCH ×3 (05:36→21:13)
[2018-05-06] MEDS: NORVASC FEEDTUBE SCH (09:20)
[2018-05-06] MEDS: KEPPRA PO SCH ×2 (09:21→21:14)
[2018-05-06] MEDS: LOVENOX SUB-Q SCH (09:21)
[2018-05-06] MEDS: MAXIPIME/NS 2 GM/100 ML 2 GM/100 ML BAG IV SCH (09:22)
[2018-05-06] MEDS: PEPCID PO SCH ×2 (09:22→21:14)
[2018-05-06] MEDS: PROVIGIL PO SCH (09:22)
[2018-05-06] MEDS: COLACE FEEDTUBE SCH ×2 (09:23→21:14)
[2018-05-06] MEDS: SODIUM CHLORIDE FLUSH SYRINGE 10 ML IV SCH ×2 (09:23→21:16)
[2018-05-06] MEDS: HumuLIN R SUB-Q SCH ×3 (09:24→21:12)
--- NOTE | 2018-05-06 09:54 | Progress Note ---
Assessment and Plan Acute Hypoxemic Respiratory Failure s/p MVS s/p trachesotomy s/p PEG Fevers with GNR in urine New Onset Seizures (presumed secondary to Hypoglycemia) Acute Encephalopathy (Toxic -Metabolic) Hypoxic ischemic encephalopathy Diabetes Type 2 Rhabdomyolysis Obesity HTN Possible JOE Leucocytosis, resolved h/o Alcohol use disorder Medical decision making --Monitor off antibiotics -Mobility with PT/OT -Secretion management -Avoid delirium, maintain sleep-wake cycle. - ATP trials as tolerated per protocol -Trach care, airway clearance -Follow up EEG report All other care as outlined below. -VAP bundle addressed -Anti-seizure medications -Analgesia and agitation management. -VTE and stress ulcer prophylaxis -AEDs (Keppra) -Enteric nutrition with glycemic control -Target blood glucose level 140-180mg/dL -Aspiration precautions - Wean supplemental oxygen to keep O2 sats > 90% -ATP trials as tolerated - Bronchodilators per protocol - Replace electrolytes as indicated Discussed with RT and RN/care team in ICU-IDT bedside rounds Subjective Date of service: 05/06/18 Principal diagnosis: Ac Hypoxemic Resp Failure; Seizures; Encephalopathy; DM II; Rhabdomyolysis Interval history: Patient is seen today for: Acute Hypoxemic Respiratory Failure; New Onset Seizures (presumed secondary to Hypoglycemia); Acute Encephalopathy (Toxic -Metabolic); Diabetes Type II; Rhabdomyolysis Seen and examined at bedside; 24hour events reviewed; nursing and respiratory care staff consulted; no adverse overnight events reported to me; resting peacefully in bed; remains encephalopathic but waking up more, appears to be tracking voice, on ATP this morning s/p trach and PEG, no grade fevers documented overnight.No episodes of vomiting, tolerating tube feeding. Objective Vital Signs - 12hr 05/05/18 05/05/18 05/05/18 22:00 22:30 22:51 Temperature Pulse Rate 78 77 76 Pulse Rate [ Apical] Pulse Rate [ From Monitor] Respiratory 19 14 16 Rate Blood Pressure 139/69 125/63 137/53 O2 Sat by Pulse 100 Oximetry 05/05/18 05/05/18 05/05/18 23:00 23:01 23:30 Temperature Pulse Rate 79 79 80 Pulse Rate [ Apical] Pulse Rate [ From Monitor] Respiratory 12 16 15 Rate Blood Pressure 138/108 138/108 138/108 O2 Sat by Pulse 99 Oximetry 05/05/18 05/06/18 05/06/18 23:40 00:00 00:30 Temperature 99.5 F Pulse Rate 81 79 75 Pulse Rate [ 72 Apical] Pulse Rate [ 70 From Monitor] Respiratory 20 17 Rate Blood Pressure 138/108 138/61 126/66 O2 Sat by Pulse 99 100 99 Oximetry 05/06/18 05/06/18 05/06/18 01:00 01:30 02:00 Temperature Pulse Rate 79 70 82 Pulse Rate [ Apical] Pulse Rate [ From Monitor] Respiratory 16 12 17 Rate Blood Pressure 126/66 111/66 111/66 O2 Sat by Pulse 100 100 100 Oximetry 05/06/18 05/06/18 05/06/18 02:30 03:00 03:30 Temperature Pulse Rate 72 80 76 Pulse Rate [ Apical] Pulse Rate [ From Monitor] Respiratory 13 20 13 Rate Blood Pressure 108/60 128/72 137/54 O2 Sat by Pulse 100 99 99 Oximetry 05/06/18 05/06/18 05/06/18 04:00 04:16 04:30 Temperature 99.3 F Pulse Rate 81 77 68 Pulse Rate [ 80 Apical] Pulse Rate [ 81 From Monitor] Respiratory 18 12 Rate Blood Pressure 137/54 129/58 136/80 O2 Sat by Pulse 100 99 100 Oximetry 05/06/18 05/06/18 05/06/18 05:00 05:30 05:36 Temperature Pulse Rate 66 66 73 Pulse Rate [ Apical] Pulse Rate [ From Monitor] Respiratory 16 14 Rate Blood Pressure 111/57 115/60 115/60 O2 Sat by Pulse 99 99 Oximetry 05/06/18 05/06/18 05/06/18 06:01 06:31 07:01 Temperature Pulse Rate 64 75 81 Pulse Rate [ Apical] Pulse Rate [ From Monitor] Respiratory 13 14 20 Rate Blood Pressure 113/60 109/58 144/78 O2 Sat by Pulse 99 100 100 Oximetry 05/06/18 05/06/18 05/06/18 07:31 08:00 08:01 Temperature 98.3 F Pulse Rate 65 59 L 59 L Pulse Rate [ 59 L Apical] Pulse Rate [ 59 L From Monitor] Respiratory 15 16 Rate Blood Pressure 119/62 122/64 O2 Sat by Pulse 99 100 100 Oximetry 05/06/18 05/06/18 05/06/18 08:16 08:31 09:20 Temperature Pulse Rate 67 79 76 Pulse Rate [ Apical] Pulse Rate [ From Monitor] Respiratory 14 Rate Blood Pressure 122/64 149/78 148/77 O2 Sat by Pulse 100 99 Oximetry Constitutional: no acute distress, other (Elderly looking AAM, normocephalic and atraumatic with normal work of breathing, s/p trach to ATP) Eyes: non-icteric ENT: oropharynx moist, other (s/p tracheostomy) Neck: supple, no lymphadenopathy, no JVD, other (large neck circumference) Effort: normal Ascultation: Bilateral: diminished breath sounds, rhonchi Percussion: Bilateral: not dull Cardiovascular: regular rate and rhythm Gastrointestinal: normoactive bowel sounds, soft, non-tender, non-distended, other (protuberant s/p PEG) Integumentary: normal Extremities: no cyanosis, no edema, pulses normal, no ischemia or petechiae Neurologic: non-focal exam (moving all extremities), unable to assess, other (opens eyes spontaneously, not following my prompts, appears to be traking voice) Psychiatric: other (unable to assess) CBC and BMP: 05/05/18 04:27 05/05/18 04:27 ABG, PT/INR, D-dimer: ABG POC ABG pH 7.505 (7.35-7.45) H 05/04/18 21: POC ABG pCO2 38.5 (35-45) 05/04/18 21:19 POC ABG pO2 82 (80-105) 05/04/18 21:19 POC ABG HCO3 30.4 (22-26 mml/L) 05/04/18 21:19 POC ABG Total CO2 32 (23-27mmol/L) 05/04/18 21:19 POC ABG O2 Sat 97 05/04/18 21:19 PT/INR, D-dimer PT 13.8 Sec. (12.2-14.9) 04/29/18 21:03 INR 1.00 (0.87-1.13) 04/29/18 21:03 Abnormal lab findings: Abnormal Labs 04/09/18 04/09/18 04/09/18 23:16 23:16 23:16 WBC 13.6 H RBC Hgb Hct MCHC RDW Plt Count Lymph % (Auto) 9.4 L [place] % (Auto) Lymph # [place] # Seg Neutrophils % 87.3 H Seg Neutrophils # 11.9 H POC ABG pH POC ABG pCO2 POC ABG pO2 Sodium 132 L Potassium Chloride 92.7 L Carbon Dioxide BUN Creatinine Glucose 143 H POC Glucose Hemoglobin A1c Lactic Acid 2.10 H* Calcium Phosphorus Magnesium Total Bilirubin 2.20 H Direct Bilirubin AST 107 H Total Creatine Kinase CK-MB (CK-2) C-Reactive Protein Total Protein Albumin TSH Free T4 04/10/18 04/10/18 04/10/18 00:38 00:55 01:13 WBC RBC Hgb Hct MCHC RDW Plt Count Lymph % (Auto) [place] % (Auto) Lymph # [place] # Seg Neutrophils % Seg Neutrophils # POC ABG pH POC ABG pCO2 POC ABG pO2 Sodium Potassium Chloride Carbon Dioxide BUN Creatinine Glucose POC Glucose 117 H 121 H Hemoglobin A1c Lactic Acid 2.10 H* Calcium Phosphorus Magnesium Total Bilirubin Direct Bilirubin AST Total Creatine Kinase CK-MB (CK-2) C-Reactive Protein Total Protein Albumin TSH Free T4 04/10/18 04/10/18 04/10/18 02:10 03:51 04:07 WBC 14.0 H RBC Hgb Hct MCHC RDW Plt Count Lymph % (Auto) 7.5 L [place] % (Auto) Lymph # 1.1 L [place] # 1.0 H Seg Neutrophils % 84.9 H Seg Neutrophils # 11.8 H POC ABG pH POC ABG pCO2 POC ABG pO2 Sodium Potassium Chloride Carbon Dioxide BUN Creatinine Glucose POC Glucose 153 H 158 H Hemoglobin A1c Lactic Acid Calcium Phosphorus Magnesium Total Bilirubin Direct Bilirubin AST Total Creatine Kinase CK-MB (CK-2) C-Reactive Protein Total Protein Albumin TSH Free T4 04/10/18 04/10/18 04/10/18 04:07 06:56 09:48 WBC RBC Hgb Hct MCHC RDW Plt Count Lymph % (Auto) [place] % (Auto) Lymph # [place] # Seg Neutrophils % Seg Neutrophils # POC ABG pH POC ABG pCO2 POC ABG pO2 Sodium 130 L Potassium Chloride 93.4 L Carbon Dioxide BUN Creatinine Glucose 180 H POC Glucose 251 H 245 H Hemoglobin A1c Lactic Acid Calcium 7.9 L D Phosphorus Magnesium Total Bilirubin Direct Bilirubin AST Total Creatine Kinase 7857 H CK-MB (CK-2) 34.3 H C-Reactive Protein Total Protein Albumin TSH Free T4 04/10/18 04/10/18 04/10/18 10:37 12:44 17:31 WBC RBC Hgb Hct MCHC RDW Plt Count Lymph % (Auto) [place] % (Auto) Lymph # [place] # Seg Neutrophils % Seg Neutrophils # POC ABG pH POC ABG pCO2 45.6 H POC ABG pO2 374 H Sodium Potassium Chloride Carbon Dioxide BUN Creatinine Glucose POC Glucose 348 H Hemoglobin A1c Lactic Acid Calcium Phosphorus Magnesium Total Bilirubin Direct Bilirubin AST Total Creatine Kinase 9880 H CK-MB (CK-2) 30.0 H C-Reactive Protein Total Protein Albumin TSH Free T4 04/10/18 04/11/18 04/11/18 23:36 03:52 04:28 WBC 12.2 H RBC Hgb Hct MCHC RDW Plt Count 132 L Lymph % (Auto) [place] % (Auto) 10.2 H Lymph # [place] # 1.2 H Seg Neutrophils % 75.1 H Seg Neutrophils # 9.1 H POC ABG pH 7.495 H POC ABG pCO2 32.4 L POC ABG pO2 Sodium Potassium Chloride Carbon Dioxide BUN Creatinine Glucose POC Glucose 148 H Hemoglobin A1c Lactic Acid Calcium Phosphorus Magnesium Total Bilirubin Direct Bilirubin AST Total Creatine Kinase CK-MB (CK-2) C-Reactive Protein Total Protein Albumin TSH Free T4 04/11/18 04/11/18 04/11/18 04:28 04:28 05:22 WBC RBC Hgb Hct MCHC RDW Plt Count Lymph % (Auto) [place] % (Auto) Lymph # [place] # Seg Neutrophils % Seg Neutrophils # POC ABG pH POC ABG pCO2 POC ABG pO2 Sodium 133 L Potassium 3.5 L Chloride 95.1 L Carbon Dioxide BUN 7 L Creatinine Glucose 206 H POC Glucose 178 H Hemoglobin A1c 6.4 H Lactic Acid Calcium 7.7 L Phosphorus 1.80 L Magnesium 1.50 L Total Bilirubin 4.10 H Direct Bilirubin AST 168 H Total Creatine Kinase 9352 H CK-MB (CK-2) C-Reactive Protein Total Protein Albumin 3.4 L TSH Free T4 04/11/18 04/11/18 04/11/18 11:28 13:43 17:30 WBC RBC Hgb Hct MCHC RDW Plt Count Lymph % (Auto) [place] % (Auto) Lymph # [place] # Seg Neutrophils % Seg Neutrophils # POC ABG pH POC ABG pCO2 POC ABG pO2 Sodium Potassium Chloride Carbon Dioxide BUN Creatinine Glucose POC Glucose 196 H 142 H Hemoglobin A1c Lactic Acid Calcium Phosphorus Magnesium Total Bilirubin Direct Bilirubin AST Total Creatine Kinase CK-MB (CK-2) C-Reactive Protein 7.20 H Total Protein Albumin TSH Free T4 04/11/18 04/11/18 04/12/18 18:59 23:23 04:00 WBC RBC Hgb Hct MCHC RDW Plt Count Lymph % (Auto) [place] % (Auto) Lymph # [place] # Seg Neutrophils % Seg Neutrophils # POC ABG pH 7.489 H POC ABG pCO2 34.5 L POC ABG pO2 Sodium Potassium 3.3 L Chloride Carbon Dioxide BUN 6 L Creatinine Glucose 151 H POC Glucose 129 H Hemoglobin A1c Lactic Acid Calcium 7.3 L Phosphorus 2.00 L Magnesium Total Bilirubin 2.80 H Direct Bilirubin AST 121 H Total Creatine Kinase 5177 H CK-MB (CK-2) C-Reactive Protein Total Protein 5.9 L Albumin 3.1 L TSH Free T4 04/12/18 04/12/18 04/12/18 04:00 04:04 05:21 WBC RBC Hgb Hct 34.9 L MCHC 35 H RDW Plt Count 128 L Lymph % (Auto) [place] % (Auto) 10.6 H Lymph # [place] # 0.9 H Seg Neutrophils % Seg Neutrophils # POC ABG pH 7.454 H POC ABG pCO2 POC ABG pO2 Sodium Potassium Chloride Carbon Dioxide BUN Creatinine Glucose POC Glucose 136 H Hemoglobin A1c Lactic Acid Calcium Phosphorus Magnesium Total Bilirubin Direct Bilirubin AST Total Creatine Kinase CK-MB (CK-2) C-Reactive Protein Total Protein Albumin TSH Free T4 04/12/18 04/13/18 04/13/18 11:23 00:21 04:57 WBC RBC Hgb Hct MCHC RDW Plt Count Lymph % (Auto) [place] % (Auto) Lymph # [place] # Seg Neutrophils % Seg Neutrophils # POC ABG pH POC ABG pCO2 34.7 L POC ABG pO2 125 H Sodium Potassium Chloride Carbon Dioxide BUN Creatinine Glucose POC Glucose 166 H 143 H Hemoglobin A1c Lactic Acid Calcium Phosphorus Magnesium Total Bilirubin Direct Bilirubin AST Total Creatine Kinase CK-MB (CK-2) C-Reactive Protein Total Protein Albumin TSH Free T4 04/13/18 04/13/18 04/13/18 05:02 05:02 12:16 WBC RBC Hgb Hct MCHC RDW Plt Count Lymph % (Auto) [place] % (Auto) Lymph # [place] # Seg Neutrophils % Seg Neutrophils # POC ABG pH POC ABG pCO2 POC ABG pO2 Sodium Potassium Chloride Carbon Dioxide BUN Creatinine Glucose POC Glucose 161 H 170 H Hemoglobin A1c Lactic Acid Calcium Phosphorus Magnesium Total Bilirubin Direct Bilirubin AST Total Creatine Kinase 3456 H CK-MB (CK-2) C-Reactive Protein Total Protein Albumin TSH Free T4 04/13/18 04/13/18 04/14/18 18:52 23:09 04:35 WBC RBC Hgb Hct MCHC RDW Plt Count Lymph % (Auto) [place] % (Auto) Lymph # [place] # Seg Neutrophils % Seg Neutrophils # POC ABG pH 7.467 H POC ABG pCO2 POC ABG pO2 Sodium Potassium Chloride Carbon Dioxide BUN Creatinine Glucose POC Glucose 196 H 219 H Hemoglobin A1c Lactic Acid Calcium Phosphorus Magnesium Total Bilirubin Direct Bilirubin AST Total Creatine Kinase CK-MB (CK-2) C-Reactive Protein Total Protein Albumin TSH Free T4 04/14/18 04/14/18 04/14/18 05:00 05:26 11:20 WBC RBC Hgb Hct MCHC RDW Plt Count Lymph % (Auto) [place] % (Auto) Lymph # [place] # Seg Neutrophils % Seg Neutrophils # POC ABG pH POC ABG pCO2 POC ABG pO2 Sodium Potassium Chloride Carbon Dioxide BUN Creatinine Glucose POC Glucose 249 H 260 H Hemoglobin A1c Lactic Acid Calcium Phosphorus Magnesium Total Bilirubin Direct Bilirubin AST Total Creatine Kinase 2247 H CK-MB (CK-2) C-Reactive Protein Total Protein Albumin TSH Free T4 04/14/18 04/14/18 04/14/18 17:04 17:51 23:53 WBC RBC Hgb Hct MCHC RDW Plt Count Lymph % (Auto) [place] % (Auto) Lymph # [place] # Seg Neutrophils % Seg Neutrophils # POC ABG pH POC ABG pCO2 POC ABG pO2 79 L Sodium Potassium Chloride Carbon Dioxide BUN Creatinine Glucose POC Glucose 284 H 203 H Hemoglobin A1c Lactic Acid Calcium Phosphorus Magnesium Total Bilirubin Direct Bilirubin AST Total Creatine Kinase CK-MB (CK-2) C-Reactive Protein Total Protein Albumin TSH Free T4 04/15/18 04/15/18 04/15/18 04:24 05:26 12:56 WBC RBC Hgb Hct MCHC RDW Plt Count Lymph % (Auto) [place] % (Auto) Lymph # [place] # Seg Neutrophils % Seg Neutrophils # POC ABG pH POC ABG pCO2 45.4 H POC ABG pO2 78 L Sodium Potassium Chloride Carbon Dioxide BUN Creatinine Glucose POC Glucose 194 H 200 H Hemoglobin A1c Lactic Acid Calcium Phosphorus Magnesium Total Bilirubin Direct Bilirubin AST Total Creatine Kinase CK-MB (CK-2) C-Reactive Protein Total Protein Albumin TSH Free T4 04/15/18 04/15/18 04/16/18 17:46 23:57 05:08 WBC RBC Hgb Hct MCHC RDW Plt Count Lymph % (Auto) [place] % (Auto) Lymph # [place] # Seg Neutrophils % Seg Neutrophils # POC ABG pH POC ABG pCO2 POC ABG pO2 Sodium Potassium Chloride Carbon Dioxide BUN Creatinine Glucose POC Glucose 118 H 204 H 221 H Hemoglobin A1c Lactic Acid Calcium Phosphorus Magnesium Total Bilirubin Direct Bilirubin AST Total Creatine Kinase CK-MB (CK-2) C-Reactive Protein Total Protein Albumin TSH Free T4 04/16/18 04/16/18 04/16/18 05:16 12:23 13:07 WBC RBC Hgb Hct MCHC RDW Plt Count Lymph % (Auto) [place] % (Auto) Lymph # [place] # Seg Neutrophils % Seg Neutrophils # POC ABG pH 7.456 H POC ABG pCO2 46.7 H POC ABG pO2 Sodium Potassium Chloride Carbon Dioxide BUN Creatinine Glucose POC Glucose 271 H Hemoglobin A1c Lactic Acid Calcium Phosphorus Magnesium Total Bilirubin Direct Bilirubin AST Total Creatine Kinase CK-MB (CK-2) C-Reactive Protein Total Protein Albumin TSH Free T4 04/16/18 04/17/18 04/17/18 19:14 00:08 05:46 WBC RBC Hgb Hct MCHC RDW Plt Count Lymph % (Auto) [place] % (Auto) Lymph # [place] # Seg Neutrophils % Seg Neutrophils # POC ABG pH POC ABG pCO2 POC ABG pO2 Sodium Potassium Chloride Carbon Dioxide BUN Creatinine Glucose POC Glucose 221 H 238 H 274 H Hemoglobin A1c Lactic Acid Calcium Phosphorus Magnesium Total Bilirubin Direct Bilirubin AST Total Creatine Kinase CK-MB (CK-2) C-Reactive Protein Total Protein Albumin TSH Free T4 04/17/18 04/17/18 04/17/18 13:50 13:59 14:20 WBC RBC Hgb Hct MCHC RDW Plt Count Lymph % (Auto) [place] % (Auto) Lymph # [place] # Seg Neutrophils % Seg Neutrophils # POC ABG pH 7.474 H POC ABG pCO2 POC ABG pO2 Sodium Potassium 3.4 L Chloride 93.6 L Carbon Dioxide 33 H BUN Creatinine Glucose 305 H POC Glucose 315 H Hemoglobin A1c Lactic Acid Calcium Phosphorus Magnesium Total Bilirubin Direct Bilirubin AST Total Creatine Kinase CK-MB (CK-2) C-Reactive Protein Total Protein Albumin TSH Free T4 04/17/18 04/17/18 04/18/18 17:04 23:26 04:20 WBC RBC Hgb Hct MCHC RDW Plt Count Lymph % (Auto) [place] % (Auto) Lymph # [place] # Seg Neutrophils % Seg Neutrophils # POC ABG pH 7.473 H POC ABG pCO2 POC ABG pO2 Sodium Potassium Chloride Carbon Dioxide BUN Creatinine Glucose POC Glucose 280 H 284 H Hemoglobin A1c Lactic Acid Calcium Phosphorus Magnesium Total Bilirubin Direct Bilirubin AST Total Creatine Kinase CK-MB (CK-2) C-Reactive Protein Total Protein Albumin TSH Free T4 04/18/18 04/18/18 04/18/18 05:14 08:32 11:00 WBC RBC Hgb Hct MCHC RDW Plt Count Lymph % (Auto) [place] % (Auto) Lymph # [place] # Seg Neutrophils % Seg Neutrophils # POC ABG pH POC ABG pCO2 POC ABG pO2 Sodium Potassium Chloride Carbon Dioxide BUN Creatinine Glucose POC Glucose 286 H 296 H Hemoglobin A1c Lactic Acid Calcium Phosphorus Magnesium Total Bilirubin Direct Bilirubin 0.3 H AST 87 H Total Creatine Kinase CK-MB (CK-2) C-Reactive Protein Total Protein Albumin 3.7 L TSH Free T4 04/18/18 04/18/18 04/19/18 12:03 18:15 00:08 WBC RBC Hgb Hct MCHC RDW Plt Count Lymph % (Auto) [place] % (Auto) Lymph # [place] # Seg Neutrophils % Seg Neutrophils # POC ABG pH POC ABG pCO2 POC ABG pO2 Sodium Potassium Chloride Carbon Dioxide BUN Creatinine Glucose POC Glucose 353 H 327 H 331 H Hemoglobin A1c Lactic Acid Calcium Phosphorus Magnesium Total Bilirubin Direct Bilirubin AST Total Creatine Kinase CK-MB (CK-2) C-Reactive Protein Total Protein Albumin TSH Free T4 04/19/18 04/19/18 04/19/18 04:46 05:26 11:48 WBC RBC Hgb Hct MCHC RDW Plt Count Lymph % (Auto) [place] % (Auto) Lymph # [place] # Seg Neutrophils % Seg Neutrophils # POC ABG pH 7.497 H POC ABG pCO2 POC ABG pO2 119 H Sodium Potassium Chloride Carbon Dioxide BUN Creatinine Glucose POC Glucose 323 H 266 H Hemoglobin A1c Lactic Acid Calcium Phosphorus Magnesium Total Bilirubin Direct Bilirubin AST Total Creatine Kinase CK-MB (CK-2) C-Reactive Protein Total Protein Albumin TSH Free T4 04/19/18 04/19/18 04/20/18 17:52 23:37 00:07 WBC RBC Hgb Hct MCHC RDW Plt Count Lymph % (Auto) [place] % (Auto) Lymph # [place] # Seg Neutrophils % Seg Neutrophils # POC ABG pH POC ABG pCO2 POC ABG pO2 Sodium Potassium Chloride Carbon Dioxide BUN Creatinine Glucose POC Glucose 284 H 285 H 312 H Hemoglobin A1c Lactic Acid Calcium Phosphorus Magnesium Total Bilirubin Direct Bilirubin AST Total Creatine Kinase CK-MB (CK-2) C-Reactive Protein Total Protein Albumin TSH Free T4 04/20/18 04/20/18 04/20/18 04:09 04:09 04:37 WBC RBC Hgb Hct 34.7 L MCHC 35 H RDW Plt Count Lymph % (Auto) [place] % (Auto) Lymph # [place] # Seg Neutrophils % Seg Neutrophils # POC ABG pH POC ABG pCO2 POC ABG pO2 Sodium Potassium 3.5 L Chloride 95.7 L Carbon Dioxide 34 H BUN Creatinine Glucose 286 H POC Glucose 267 H Hemoglobin A1c Lactic Acid Calcium Phosphorus Magnesium Total Bilirubin Direct Bilirubin AST Total Creatine Kinase CK-MB (CK-2) C-Reactive Protein Total Protein Albumin TSH Free T4 04/20/18 04/20/18 04/20/18 12:32 17:54 21:07 WBC RBC Hgb Hct MCHC RDW Plt Count Lymph % (Auto) [place] % (Auto) Lymph # [place] # Seg Neutrophils % Seg Neutrophils # POC ABG pH POC ABG pCO2 POC ABG pO2 Sodium Potassium Chloride Carbon Dioxide BUN Creatinine Glucose POC Glucose 220 H 298 H 187 H Hemoglobin A1c Lactic Acid Calcium Phosphorus Magnesium Total Bilirubin Direct Bilirubin AST Total Creatine Kinase CK-MB (CK-2) C-Reactive Protein Total Protein Albumin TSH Free T4 04/21/18 04/21/18 04/21/18 00:04 05:00 05:41 WBC RBC Hgb Hct MCHC RDW Plt Count Lymph % (Auto) [place] % (Auto) Lymph # [place] # Seg Neutrophils % Seg Neutrophils # POC ABG pH POC ABG pCO2 POC ABG pO2 Sodium Potassium Chloride 95.2 L Carbon Dioxide 34 H BUN Creatinine Glucose 179 H POC Glucose 183 H 166 H Hemoglobin A1c Lactic Acid Calcium Phosphorus Magnesium Total Bilirubin Direct Bilirubin AST Total Creatine Kinase CK-MB (CK-2) C-Reactive Protein Total Protein Albumin TSH Free T4 04/21/18 04/21/18 04/21/18 11:55 18:09 23:36 WBC RBC Hgb Hct MCHC RDW Plt Count Lymph % (Auto) [place] % (Auto) Lymph # [place] # Seg Neutrophils % Seg Neutrophils # POC ABG pH POC ABG pCO2 POC ABG pO2 Sodium Potassium Chloride Carbon Dioxide BUN Creatinine Glucose POC Glucose 219 H 247 H 229 H Hemoglobin A1c Lactic Acid Calcium Phosphorus Magnesium Total Bilirubin Direct Bilirubin AST Total Creatine Kinase CK-MB (CK-2) C-Reactive Protein Total Protein Albumin TSH Free T4 04/22/18 04/22/18 04/22/18 04:07 04:07 05:08 WBC RBC Hgb Hct MCHC 35 H RDW 15.3 H Plt Count Lymph % (Auto) [place] % (Auto) Lymph # [place] # Seg Neutrophils % Seg Neutrophils # POC ABG pH POC ABG pCO2 POC ABG pO2 Sodium Potassium Chloride 97.4 L Carbon Dioxide 31 H BUN Creatinine Glucose 177 H POC Glucose 200 H Hemoglobin A1c Lactic Acid Calcium Phosphorus Magnesium Total Bilirubin Direct Bilirubin AST Total Creatine Kinase CK-MB (CK-2) C-Reactive Protein Total Protein Albumin TSH Free T4 04/22/18 04/22/18 04/23/18 12:15 18:04 04:55 WBC RBC Hgb Hct MCHC RDW Plt Count Lymph % (Auto) [place] % (Auto) Lymph # [place] # Seg Neutrophils % Seg Neutrophils # POC ABG pH POC ABG pCO2 POC ABG pO2 Sodium Potassium Chloride Carbon Dioxide BUN 23 H Creatinine Glucose 274 H POC Glucose 189 H 191 H Hemoglobin A1c Lactic Acid Calcium Phosphorus Magnesium Total Bilirubin Direct Bilirubin AST Total Creatine Kinase CK-MB (CK-2) C-Reactive Protein Total Protein Albumin TSH Free T4 04/23/18 04/23/18 04/23/18 05:21 11:06 17:46 WBC RBC Hgb Hct MCHC RDW Plt Count Lymph % (Auto) [place] % (Auto) Lymph # [place] # Seg Neutrophils % Seg Neutrophils # POC ABG pH POC ABG pCO2 POC ABG pO2 Sodium Potassium Chloride Carbon Dioxide BUN Creatinine Glucose POC Glucose 143 H 176 H 142 H Hemoglobin A1c Lactic Acid Calcium Phosphorus Magnesium Total Bilirubin Direct Bilirubin AST Total Creatine Kinase CK-MB (CK-2) C-Reactive Protein Total Protein Albumin TSH Free T4 04/23/18 04/24/18 04/24/18 23:35 06:02 11:37 WBC RBC Hgb Hct MCHC RDW Plt Count Lymph % (Auto) [place] % (Auto) Lymph # [place] # Seg Neutrophils % Seg Neutrophils # POC ABG pH POC ABG pCO2 POC ABG pO2 Sodium Potassium Chloride Carbon Dioxide BUN Creatinine Glucose POC Glucose 127 H 175 H 188 H Hemoglobin A1c Lactic Acid Calcium Phosphorus Magnesium Total Bilirubin Direct Bilirubin AST Total Creatine Kinase CK-MB (CK-2) C-Reactive Protein Total Protein Albumin TSH Free T4 04/24/18 04/24/18 04/24/18 16:50 18:40 20:23 WBC RBC Hgb Hct MCHC RDW Plt Count Lymph % (Auto) [place] % (Auto) Lymph # [place] # Seg Neutrophils % Seg Neutrophils # POC ABG pH POC ABG pCO2 POC ABG pO2 Sodium Potassium Chloride Carbon Dioxide BUN Creatinine Glucose POC Glucose 134 H 148 H Hemoglobin A1c Lactic Acid Calcium Phosphorus Magnesium Total Bilirubin Direct Bilirubin AST Total Creatine Kinase CK-MB (CK-2) C-Reactive Protein Total Protein Albumin TSH 47.760 H Free T4 0.10 L 04/24/18 04/25/18 04/25/18 23:14 05:22 05:22 WBC RBC Hgb Hct MCHC 35 H RDW 15.4 H Plt Count Lymph % (Auto) [place] % (Auto) Lymph # [place] # Seg Neutrophils % Seg Neutrophils # POC ABG pH POC ABG pCO2 POC ABG pO2 Sodium 136 L Potassium Chloride 95.0 L Carbon Dioxide BUN Creatinine Glucose 210 H POC Glucose 145 H Hemoglobin A1c Lactic Acid Calcium Phosphorus Magnesium Total Bilirubin Direct Bilirubin AST Total Creatine Kinase CK-MB (CK-2) C-Reactive Protein Total Protein Albumin TSH Free T4 04/25/18 04/25/18 04/25/18 05:44 12:19 13:06 WBC RBC Hgb Hct MCHC RDW Plt Count Lymph % (Auto) [place] % (Auto) Lymph # [place] # Seg Neutrophils % Seg Neutrophils # POC ABG pH 7.471 H POC ABG pCO2 POC ABG pO2 115 H Sodium Potassium Chloride Carbon Dioxide BUN Creatinine Glucose POC Glucose 176 H 231 H Hemoglobin A1c Lactic Acid Calcium Phosphorus Magnesium Total Bilirubin Direct Bilirubin AST Total Creatine Kinase CK-MB (CK-2) C-Reactive Protein Total Protein Albumin TSH Free T4 04/25/18 04/25/18 04/26/18 17:54 20:09 00:01 WBC RBC Hgb Hct MCHC RDW Plt Count Lymph % (Auto) [place] % (Auto) Lymph # [place] # Seg Neutrophils % Seg Neutrophils # POC ABG pH POC ABG pCO2 POC ABG pO2 Sodium Potassium Chloride Carbon Dioxide BUN Creatinine Glucose POC Glucose 196 H 119 H 174 H Hemoglobin A1c Lactic Acid Calcium Phosphorus Magnesium Total Bilirubin Direct Bilirubin AST Total Creatine Kinase CK-MB (CK-2) C-Reactive Protein Total Protein Albumin TSH Free T4 04/26/18 04/26/18 04/26/18 05:10 12:03 15:20 WBC RBC Hgb Hct MCHC RDW Plt Count Lymph % (Auto) [place] % (Auto) Lymph # [place] # Seg Neutrophils % Seg Neutrophils # POC ABG pH POC ABG pCO2 POC ABG pO2 Sodium Potassium Chloride Carbon Dioxide BUN Creatinine Glucose POC Glucose 212 H 222 H 113 H Hemoglobin A1c Lactic Acid Calcium Phosphorus Magnesium Total Bilirubin Direct Bilirubin AST Total Creatine Kinase CK-MB (CK-2) C-Reactive Protein Total Protein Albumin TSH Free T4 04/26/18 04/26/18 04/27/18 18:08 23:39 05:10 WBC RBC Hgb Hct MCHC RDW Plt Count Lymph % (Auto) [place] % (Auto) Lymph # [place] # Seg Neutrophils % Seg Neutrophils # POC ABG pH POC ABG pCO2 POC ABG pO2 Sodium Potassium Chloride Carbon Dioxide BUN Creatinine Glucose POC Glucose 110 H 165 H 137 H Hemoglobin A1c Lactic Acid Calcium Phosphorus Magnesium Total Bilirubin Direct Bilirubin AST Total Creatine Kinase CK-MB (CK-2) C-Reactive Protein Total Protein Albumin TSH Free T4 04/27/18 04/27/18 04/27/18 10:04 11:23 17:36 WBC RBC Hgb Hct MCHC RDW Plt Count Lymph % (Auto) [place] % (Auto) Lymph # [place] # Seg Neutrophils % Seg Neutrophils # POC ABG pH POC ABG pCO2 POC ABG pO2 Sodium Potassium Chloride Carbon Dioxide BUN Creatinine Glucose POC Glucose 190 H 258 H 198 H Hemoglobin A1c Lactic Acid Calcium Phosphorus Magnesium Total Bilirubin Direct Bilirubin AST Total Creatine Kinase CK-MB (CK-2) C-Reactive Protein Total Protein Albumin TSH Free T4 04/27/18 04/28/18 04/28/18 23:23 05:19 13:06 WBC RBC Hgb Hct MCHC RDW Plt Count Lymph % (Auto) [place] % (Auto) Lymph # [place] # Seg Neutrophils % Seg Neutrophils # POC ABG pH POC ABG pCO2 POC ABG pO2 Sodium Potassium Chloride Carbon Dioxide BUN Creatinine Glucose POC Glucose 131 H 178 H 194 H Hemoglobin A1c Lactic Acid Calcium Phosphorus Magnesium Total Bilirubin Direct Bilirubin AST Total Creatine Kinase CK-MB (CK-2) C-Reactive Protein Total Protein Albumin TSH Free T4 04/28/18 04/29/18 04/29/18 16:59 00:24 05:49 WBC RBC Hgb Hct MCHC RDW Plt Count Lymph % (Auto) [place] % (Auto) Lymph # [place] # Seg Neutrophils % Seg Neutrophils # POC ABG pH POC ABG pCO2 POC ABG pO2 Sodium Potassium Chloride Carbon Dioxide BUN Creatinine Glucose POC Glucose 155 H 166 H 226 H Hemoglobin A1c Lactic Acid Calcium Phosphorus Magnesium Total Bilirubin Direct Bilirubin AST Total Creatine Kinase CK-MB (CK-2) C-Reactive Protein Total Protein Albumin TSH Free T4 04/29/18 04/29/18 04/29/18 12:12 13:29 13:29 WBC RBC Hgb Hct 34.8 L MCHC RDW Plt Count Lymph % (Auto) [place] % (Auto) 9.8 H Lymph # [place] # Seg Neutrophils % Seg Neutrophils # POC ABG pH POC ABG pCO2 POC ABG pO2 Sodium 135 L Potassium Chloride Carbon Dioxide BUN Creatinine Glucose 214 H POC Glucose 217 H Hemoglobin A1c Lactic Acid Calcium Phosphorus Magnesium Total Bilirubin Direct Bilirubin AST Total Creatine Kinase CK-MB (CK-2) C-Reactive Protein Total Protein Albumin TSH Free T4 04/29/18 04/29/18 04/30/18 21:56 23:49 05:15 WBC RBC Hgb Hct MCHC RDW Plt Count Lymph % (Auto) [place] % (Auto) Lymph # [place] # Seg Neutrophils % Seg Neutrophils # POC ABG pH POC ABG pCO2 POC ABG pO2 Sodium Potassium Chloride Carbon Dioxide BUN Creatinine Glucose POC Glucose 129 H 148 H 113 H Hemoglobin A1c Lactic Acid Calcium Phosphorus Magnesium Total Bilirubin Direct Bilirubin AST Total Creatine Kinase CK-MB (CK-2) C-Reactive Protein Total Protein Albumin TSH Free T4 04/30/18 04/30/18 04/30/18 05:28 12:10 18:12 WBC RBC Hgb Hct MCHC RDW Plt Count Lymph % (Auto) [place] % (Auto) Lymph # [place] # Seg Neutrophils % Seg Neutrophils # POC ABG pH POC ABG pCO2 POC ABG pO2 Sodium Potassium Chloride Carbon Dioxide BUN Creatinine Glucose POC Glucose 118 H 159 H 149 H Hemoglobin A1c Lactic Acid Calcium Phosphorus Magnesium Total Bilirubin Direct Bilirubin AST Total Creatine Kinase CK-MB (CK-2) C-Reactive Protein Total Protein Albumin TSH Free T4 04/30/18 04/30/18 05/01/18 20:12 23:31 05:48 WBC RBC Hgb Hct MCHC RDW Plt Count Lymph % (Auto) [place] % (Auto) Lymph # [place] # Seg Neutrophils % Seg Neutrophils # POC ABG pH POC ABG pCO2 POC ABG pO2 Sodium Potassium Chloride Carbon Dioxide BUN Creatinine Glucose POC Glucose 187 H 208 H 172 H Hemoglobin A1c Lactic Acid Calcium Phosphorus Magnesium Total Bilirubin Direct Bilirubin AST Total Creatine Kinase CK-MB (CK-2) C-Reactive Protein Total Protein Albumin TSH Free T4 05/01/18 05/01/18 05/01/18 12:25 15:05 18:06 WBC 13.3 H RBC Hgb 11.3 L Hct 33.1 L MCHC RDW Plt Count Lymph % (Auto) 9.8 L [place] % (Auto) 7.7 H Lymph # [place] # 1.0 H Seg Neutrophils % 81.9 H Seg Neutrophils # 10.9 H POC ABG pH POC ABG pCO2 POC ABG pO2 Sodium Potassium Chloride Carbon Dioxide BUN Creatinine Glucose POC Glucose 151 H 227 H Hemoglobin A1c Lactic Acid Calcium Phosphorus Magnesium Total Bilirubin Direct Bilirubin AST Total Creatine Kinase CK-MB (CK-2) C-Reactive Protein Total Protein Albumin TSH Free T4 05/01/18 05/02/18 05/02/18 23:24 04:56 04:56 WBC 12.9 H RBC Hgb 10.9 L Hct 32.8 L MCHC RDW 15.5 H Plt Count Lymph % (Auto) [place] % (Auto) Lymph # [place] # Seg Neutrophils % Seg Neutrophils # POC ABG pH POC ABG pCO2 POC ABG pO2 Sodium 136 L Potassium Chloride 94.8 L Carbon Dioxide BUN Creatinine Glucose 175 H POC Glucose 157 H Hemoglobin A1c Lactic Acid Calcium Phosphorus Magnesium Total Bilirubin Direct Bilirubin AST Total Creatine Kinase CK-MB (CK-2) C-Reactive Protein Total Protein Albumin TSH Free T4 05/02/18 05/02/18 05/02/18 05:24 12:36 18:14 WBC RBC Hgb Hct MCHC RDW Plt Count Lymph % (Auto) [place] % (Auto) Lymph # [place] # Seg Neutrophils % Seg Neutrophils # POC ABG pH POC ABG pCO2 POC ABG pO2 Sodium Potassium Chloride Carbon Dioxide BUN Creatinine Glucose POC Glucose 178 H 269 H 209 H Hemoglobin A1c Lactic Acid Calcium Phosphorus Magnesium Total Bilirubin Direct Bilirubin AST Total Creatine Kinase CK-MB (CK-2) C-Reactive Protein Total Protein Albumin TSH Free T4 05/03/18 05/03/18 05/03/18 00:15 03:20 03:20 WBC RBC 3.54 L Hgb 11.0 L Hct 32.0 L MCHC 35 H RDW 15.5 H Plt Count Lymph % (Auto) [place] % (Auto) Lymph # [place] # Seg Neutrophils % Seg Neutrophils # POC ABG pH POC ABG pCO2 POC ABG pO2 Sodium 135 L Potassium Chloride 95.8 L Carbon Dioxide BUN Creatinine 0.7 L Glucose 226 H POC Glucose 227 H Hemoglobin A1c Lactic Acid Calcium Phosphorus Magnesium Total Bilirubin Direct Bilirubin AST Total Creatine Kinase CK-MB (CK-2) C-Reactive Protein Total Protein Albumin TSH Free T4 05/03/18 05/03/18 05/03/18 05:26 08:53 11:46 WBC RBC Hgb Hct MCHC RDW Plt Count Lymph % (Auto) [place] % (Auto) Lymph # [place] # Seg Neutrophils % Seg Neutrophils # POC ABG pH POC ABG pCO2 POC ABG pO2 Sodium Potassium Chloride Carbon Dioxide BUN Creatinine Glucose POC Glucose 194 H 216 H 260 H Hemoglobin A1c Lactic Acid Calcium Phosphorus Magnesium Total Bilirubin Direct Bilirubin AST Total Creatine Kinase CK-MB (CK-2) C-Reactive Protein Total Protein Albumin TSH Free T4 05/03/18 05/04/18 05/04/18 18:00 00:29 05:07 WBC RBC Hgb Hct MCHC RDW Plt Count Lymph % (Auto) [place] % (Auto) Lymph # [place] # Seg Neutrophils % Seg Neutrophils # POC ABG pH POC ABG pCO2 POC ABG pO2 Sodium Potassium Chloride Carbon Dioxide BUN Creatinine Glucose POC Glucose 261 H 226 H 212 H Hemoglobin A1c Lactic Acid Calcium Phosphorus Magnesium Total Bilirubin Direct Bilirubin AST Total Creatine Kinase CK-MB (CK-2) C-Reactive Protein Total Protein Albumin TSH Free T4 05/04/18 05/04/18 05/04/18 12:16 17:31 21:19 WBC RBC Hgb Hct MCHC RDW Plt Count Lymph % (Auto) [place] % (Auto) Lymph # [place] # Seg Neutrophils % Seg Neutrophils # POC ABG pH 7.505 H POC ABG pCO2 POC ABG pO2 Sodium Potassium Chloride Carbon Dioxide BUN Creatinine Glucose POC Glucose 239 H 168 H Hemoglobin A1c Lactic Acid Calcium Phosphorus Magnesium Total Bilirubin Direct Bilirubin AST Total Creatine Kinase CK-MB (CK-2) C-Reactive Protein Total Protein Albumin TSH Free T4 05/04/18 05/05/18 05/05/18 23:53 04:27 04:27 WBC RBC Hgb 11.6 L Hct 34.2 L MCHC RDW 15.4 H Plt Count Lymph % (Auto) [place] % (Auto) 11.8 H Lymph # [place] # 1.0 H Seg Neutrophils % Seg Neutrophils # POC ABG pH POC ABG pCO2 POC ABG pO2 Sodium Potassium Chloride 95.7 L Carbon Dioxide BUN Creatinine 0.7 L Glucose 225 H POC Glucose 170 H Hemoglobin A1c Lactic Acid Calcium Phosphorus Magnesium Total Bilirubin Direct Bilirubin AST Total Creatine Kinase CK-MB (CK-2) C-Reactive Protein Total Protein Albumin TSH Free T4 05/05/18 05/05/18 05/05/18 06:36 12:29 18:55 WBC RBC Hgb Hct MCHC RDW Plt Count Lymph % (Auto) [place] % (Auto) Lymph # [place] # Seg Neutrophils % Seg Neutrophils # POC ABG pH POC ABG pCO2 POC ABG pO2 Sodium Potassium Chloride Carbon Dioxide BUN Creatinine Glucose POC Glucose 213 H 246 H 167 H Hemoglobin A1c Lactic Acid Calcium Phosphorus Magnesium Total Bilirubin Direct Bilirubin AST Total Creatine Kinase CK-MB (CK-2) C-Reactive Protein Total Protein Albumin TSH Free T4 05/05/18 05/06/18 23:37 05:39 WBC RBC Hgb Hct MCHC RDW Plt Count Lymph % (Auto) [place] % (Auto) Lymph # [place] # Seg Neutrophils % Seg Neutrophils # POC ABG pH POC ABG pCO2 POC ABG pO2 Sodium Potassium Chloride Carbon Dioxide BUN Creatinine Glucose POC Glucose 125 H 172 H Hemoglobin A1c Lactic Acid Calcium Phosphorus Magnesium Total Bilirubin Direct Bilirubin AST Total Creatine Kinase CK-MB (CK-2) C-Reactive Protein Total Protein Albumin TSH Free T4 Allied health notes reviewed: RT
[2018-05-06] MEDS ORDERED: MAXIPIME/NS 2 GM/100 ML 2 GM/100 ML BAG IV SCH (11:00)
[2018-05-06] MEDS ORDERED: LANTUS SUB-Q SCH ×2 (11:00→22:00)
[2018-05-06] MEDS: KEFLEX PO SCH (11:55)
[2018-05-06] MEDS: TRANSDERM-SCOP TD SCH (11:56)
--- NOTE | 2018-05-06 15:03 | Progress Note ---
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 SWITCHED TO PO /Hypokalemia -resolved s/p repletion, will cont to monitor /Severe sepsis 2/2 aspiration PNA -resolved -off antibiotics FOLLOWING TREATMENT WITH ROCEPHIN AND FLAGYL /UTI - Cx grew k[place] on 05/02 - started on cefepime /Aspiration Pneumonia -completed antibiotics for PNA /DM II with hyperglycemia - Was hypoglycemic on admission - BG improved - Cont current insulin regimen and adjust as needed /Seizure, new onset -probably 2/2 hypoglycemia recorded by EMS staff prior to admission -stable on Keppra -cont seizure precautions /Critical Illness Myopathy -cont supportive care /Thrombocytopenia -level improved, will monitor /Transaminitis -levels improved -Hepatitis panel neg -Abd US neg /Rhabdomyolysis -improved /Hypophosphatemia -resolved /Hypomagenesemia -Replaced /HTN -uncontrolled, meds adjusted /Moderate protein calorie malnutrition -on tube feeding -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 The high probability of a clinically significant, sudden or life threatening deterioration of the [Neurology, Pulmonary] system(s) required my full and direct attention, intervention and personal management. The aggregate critical care time was [35] minutes. This time is in addition to time spent performing reported procedures but includes the following: [x] Data Review and interpretation [x] Patient assessment and monitoring of vital signs [x] Documentation [x] Medication orders and management Brief History: 78-year-old male patient with significant history of hypertension diabetes coronary artery disease was admitted through emergency room with history of unresponsiveness at home for unknown Duration of time. At that time he had hypoglycemia and seizure activity, Patient was unable to protect his airway and was intubated on ventilatory support admitted to ICU also with concern of Aspiration Pneumonia. Neuro: Patient had CT scan 2 days does not show acute abnormality. MR brain also negative for acute findings. 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 Pulmonary: The patient has been maintained on mechanical ventilator, he's not been able to be weaned off the vent. The family wants to continue aggressive care. patient underwent Trach and Peg on 04/30/18 FEN; his electrolytes namely potassium and phosphate were repleted. Initially was hypoglycemic, which now resolved ID; the patient received empiric antibiotics for pneumonia, Cultures including blood, urine and sputum has remained without growth. Musculoskeletal; Traumatic Rhabdomyolysis; status post IV fluids and improved, His medications were optimized for his chronic conditions CXR: Concerning for Focal RLL infiltrate initially, repeat done 04/23/18 shows no acute pathology. Disposition: Patient is awaiting transfer to LTAC Hospitalist Physical VITAL SIGNS: Reviewed. GENERAL: The patient appeared well nourished and normally developed. Continues on mechanical ventilation with trach. HEAD: No signs of head trauma. EYES: Pupils are equal. Sluggish response to light.. EARS: Unable to assess MOUTH: Trach NECK: No adenopathy, no JVD. CHEST: Chest with clear breath sounds bilaterally. No wheezes, rales, or rhonchi. CARDIAC: Bradycardia with regular rate. S1 and S2, without murmurs, gallops, or rubs. VASCULAR: No Edema. Peripheral pulses normal and equal in all extremities. ABDOMEN: Peg in placed. Soft, without detectable tenderness. No sign of distention. No rebound or guarding, and no masses palpated. Bowel Sounds normal. MUSCULOSKELETAL: Extremities without clubbing, cyanosis or edema. NEUROLOGIC EXAM: awake, moves all ext. PSYCHIATRIC: Unable to assess SKIN: No rash or lesions. Subjective Date of service: 05/06/18 Principal diagnosis: Ac Hypoxemic Resp Failure; Seizures; Encephalopathy; DM II; Rhabdomyolysis Interval history: Patient seen and examined, No overnight issues reported. Patient remains off sedation and not responsive to commend but patient is awake. breathing with trach on vent. Pending placement to LTAC. Objective - Constitutional Vitals: Vital Signs - 12hr 05/06/18 05/06/18 05/06/18 03:30 04:00 04:16 Temperature 99.3 F Pulse Rate 76 81 77 Pulse Rate [ 80 Apical] Pulse Rate [ 81 From Monitor] Respiratory 13 18 Rate Blood Pressure 137/54 137/54 129/58 O2 Sat by Pulse 99 100 99 Oximetry 05/06/18 05/06/18 05/06/18 04:30 05:00 05:30 Temperature Pulse Rate 68 66 66 Pulse Rate [ Apical] Pulse Rate [ From Monitor] Respiratory 12 16 14 Rate Blood Pressure 136/80 111/57 115/60 O2 Sat by Pulse 100 99 99 Oximetry 05/06/18 05/06/18 05/06/18 05:36 06:01 06:31 Temperature Pulse Rate 73 64 75 Pulse Rate [ Apical] Pulse Rate [ From Monitor] Respiratory 13 14 Rate Blood Pressure 115/60 113/60 109/58 O2 Sat by Pulse 99 100 Oximetry 05/06/18 05/06/18 05/06/18 07:01 07:31 08:00 Temperature 98.3 F Pulse Rate 81 65 59 L Pulse Rate [ 59 L Apical] Pulse Rate [ 59 L From Monitor] Respiratory 20 15 Rate Blood Pressure 144/78 119/62 O2 Sat by Pulse 100 99 100 Oximetry 05/06/18 05/06/18 05/06/18 08:01 08:16 08:31 Temperature Pulse Rate 59 L 67 79 Pulse Rate [ Apical] Pulse Rate [ From Monitor] Respiratory 16 12 Rate Blood Pressure 122/64 122/64 149/78 O2 Sat by Pulse 100 100 95 Oximetry 05/06/18 05/06/18 05/06/18 09:01 09:20 09:31 Temperature Pulse Rate 82 76 83 Pulse Rate [ Apical] Pulse Rate [ From Monitor] Respiratory 13 18 Rate Blood Pressure 148/77 148/77 160/70 O2 Sat by Pulse 96 96 Oximetry 05/06/18 05/06/18 05/06/18 10:00 10:31 11:01 Temperature Pulse Rate 85 88 84 Pulse Rate [ Apical] Pulse Rate [ From Monitor] Respiratory 25 H 13 20 Rate Blood Pressure 160/70 160/70 171/66 O2 Sat by Pulse 98 98 99 Oximetry 05/06/18 05/06/18 05/06/18 11:31 12:00 12:01 Temperature 98.4 F Pulse Rate 73 85 81 Pulse Rate [ 85 Apical] Pulse Rate [ 85 From Monitor] Respiratory 19 11 L Rate Blood Pressure 127/64 137/71 O2 Sat by Pulse 98 100 97 Oximetry 05/06/18 05/06/18 05/06/18 12:31 13:01 13:31 Temperature Pulse Rate 80 83 87 Pulse Rate [ Apical] Pulse Rate [ From Monitor] Respiratory 20 16 15 Rate Blood Pressure 142/64 116/62 116/62 O2 Sat by Pulse 99 99 99 Oximetry 05/06/18 05/06/18 05/06/18 14:01 14:31 15:00 Temperature Pulse Rate 84 83 82 Pulse Rate [ Apical] Pulse Rate [ From Monitor] Respiratory 15 13 Rate Blood Pressure 105/60 136/70 136/70 O2 Sat by Pulse 96 97 Oximetry - Labs CBC & Chem 7: 05/07/18 04:40 05/07/18 04:40 Labs: Abnormal lab results 05/05/18 05/05/18 05/05/18 Range/Units 06:36 18:55 23:37 POC Glucose 213 H 167 H 125 H (70-105) 05/06/18 05/06/18 Range/Units 05:39 11:56 POC Glucose 172 H 195 H (70-105)
--- NOTE | 2018-05-06 16:06 | Electroencephalogram Report ---
Electroencephalogram EEG Date of exam: 05/06/18 History: Hypoglycemic coma with persistent decreased responsiveness Description: Findings: This is a 19 channel (including 1 channel of EKG) digital EEG using 10/20 international montage in a 20 minute recording. There is 7-8 Hz alpha activity in the posterior leads and some anterior beta activity. With drowsiness and early sleep there are K complexes. No epileptiform activity was seen. Interpretation: Interpretation: This EEG shows mild slowing of the background suggesting a metabolic or diffuse process but is improved since the March EEG but similar to the one of 04/24/18 with the exception that some sleep architecture is seen today that was not present then. This EEG does not exclude epilepsy of partial onset. Up to 4 EEGs over several months may be needed to capture interictal epileptiform activity.
[2018-05-06] MEDS: MIRALAX 3350 PO SCH (21:14)
[2018-05-07] MEDS: KEFLEX PO SCH ×3 (00:22→12:03)
[2018-05-07] MEDS: HumaLOG SUB-Q SCH ×2 (00:22→06:26)
[2018-05-07] MEDS: ROBINUL FEEDTUBE SCH ×2 (03:00→12:03)
[2018-05-07 05:19] LABS: Basophils % (Auto) 0.4 % (0.0-1.8); Eosinophils # (Auto) 0.3 K/mm3 (0.0-0.4); Eosinophils % (Auto) 3.1 % (0.0-4.3); Hematocrit 35.2 % (35.5-45.6); Lymphocytes # (Auto) 1.4 K/mm3 (1.2-5.4); Lymphocytes % (Auto) 14.7 % (13.4-35.0); Mean Corpuscular HGB Conc 34 % (32-34); Mean Corpuscular Volume 90 fl (84-94); Monocytes # (Auto) 1.1 K/mm3 (0.0-0.8); Monocytes % (Auto) 11.5 % (0.0-7.3); Platelet Count 249 K/mm3 (140-440); Red Cell Distribution Width 15.1 % (13.2-15.2)
[2018-05-07 05:59] LABS: BUN/Creatinine Ratio 20; Blood Urea Nitrogen 14 mg/dL (9-20); Calcium 8.9 mg/dL (8.4-10.2); Hemolysis Index 49
[2018-05-07] MEDS: APRESOLINE PO SCH (06:25)
[2018-05-07] MEDS: SYNTHROID PO SCH (06:25)
--- NOTE | 2018-05-07 08:49 | Progress Note ---
Assessment and Plan Acute Hypoxemic Respiratory Failure s/p MVS s/p trachesotomy s/p PEG Fevers with GNR in urine New Onset Seizures (presumed secondary to Hypoglycemia) Acute Encephalopathy (Toxic -Metabolic) Hypoxic ischemic encephalopathy Diabetes Type 2 Rhabdomyolysis Obesity HTN Possible JOE Leucocytosis, resolved h/o Alcohol use disorder Hypothyroidism Medical decision making -- Continue to monitor off antibiotics -Mobility with PT/OT -Secretion management -Avoid delirium, maintain sleep-wake cycle. - ATP trials as tolerated per protocol -Trach care, airway clearance -Discharge planning for discharge to [facility] for vent weaning and low level rehab All other care as outlined below. -VAP bundle addressed -Anti-seizure medications -Analgesia and agitation management. -VTE and stress ulcer prophylaxis -AEDs (Keppra) -Enteric nutrition with glycemic control -Target blood glucose level 140-180mg/dL -Aspiration precautions - Wean supplemental oxygen to keep O2 sats > 90% -ATP trials as tolerated - Bronchodilators per protocol - Replace electrolytes as indicated Discussed with RT and RN/care team in ICU-IDT bedside rounds Subjective Date of service: 05/07/18 Principal diagnosis: Ac Hypoxemic Resp Failure; Seizures; Encephalopathy; DM II; Rhabdomyolysis Interval history: Patient is seen today for: Acute Hypoxemic Respiratory Failure; New Onset Seizures (presumed secondary to Hypoglycemia); Acute Encephalopathy (Toxic - Metabolic); Diabetes Type II; Rhabdomyolysis Seen and examined at bedside; 24hour events reviewed; nursing and respiratory care staff consulted; no adverse overnight events reported to me; resting peacefully in bed; remains encephalopathic but waking up more, appears to be tracking voice, on ATP this morning s/p trach and PEG, no grade fevers documented overnight.No episodes of vomiting, tolerating tube feeding. Objective Vital Signs - 12hr 05/06/18 05/06/18 05/06/18 21:01 21:13 21:31 Temperature Pulse Rate 77 76 81 Pulse Rate [ From Monitor] Respiratory 12 19 Rate Blood Pressure 119/74 123/76 119/74 O2 Sat by Pulse 100 Oximetry O2 Sat by Pulse Oximetry [ Assessment] 05/06/18 05/06/18 05/06/18 22:01 22:31 22:36 Temperature Pulse Rate 74 73 74 Pulse Rate [ From Monitor] Respiratory 10 L 17 11 L Rate Blood Pressure 119/74 119/74 119/74 O2 Sat by Pulse 99 98 100 Oximetry O2 Sat by Pulse Oximetry [ Assessment] 05/06/18 05/06/18 05/06/18 23:01 23:04 23:05 Temperature 98.8 F Pulse Rate 69 73 Pulse Rate [ From Monitor] Respiratory 9 L 13 Rate Blood Pressure 119/74 119/74 O2 Sat by Pulse 99 100 Oximetry O2 Sat by Pulse Oximetry [ Assessment] 05/06/18 05/06/18 05/07/18 23:18 23:31 00:00 Temperature Pulse Rate 78 78 65 Pulse Rate [ 78 From Monitor] Respiratory 9 L 17 Rate Blood Pressure 149/78 119/74 O2 Sat by Pulse 100 99 100 Oximetry O2 Sat by Pulse Oximetry [ Assessment] 05/07/18 05/07/18 05/07/18 00:01 00:31 01:00 Temperature Pulse Rate 70 77 70 Pulse Rate [ From Monitor] Respiratory 14 13 11 L Rate Blood Pressure 119/74 115/69 106/73 O2 Sat by Pulse 99 98 99 Oximetry O2 Sat by Pulse Oximetry [ Assessment] 05/07/18 05/07/18 05/07/18 01:31 02:01 02:31 Temperature Pulse Rate 73 66 70 Pulse Rate [ From Monitor] Respiratory 19 15 15 Rate Blood Pressure 106/73 115/64 127/67 O2 Sat by Pulse 98 96 Oximetry O2 Sat by Pulse Oximetry [ Assessment] 05/07/18 05/07/18 05/07/18 03:01 03:31 03:50 Temperature 98.7 F Pulse Rate 67 78 Pulse Rate [ From Monitor] Respiratory 14 22 Rate Blood Pressure 147/78 147/78 O2 Sat by Pulse 98 96 Oximetry O2 Sat by Pulse Oximetry [ Assessment] 05/07/18 05/07/18 05/07/18 04:00 04:01 04:04 Temperature Pulse Rate 70 80 Pulse Rate [ 73 From Monitor] Respiratory 9 L 14 Rate Blood Pressure 143/79 143/79 O2 Sat by Pulse 100 96 Oximetry O2 Sat by Pulse 100 Oximetry [ Assessment] 05/07/18 05/07/18 05/07/18 04:30 05:01 05:31 Temperature Pulse Rate 74 71 75 Pulse Rate [ From Monitor] Respiratory 12 17 15 Rate Blood Pressure 143/79 141/73 141/73 O2 Sat by Pulse 100 98 Oximetry O2 Sat by Pulse Oximetry [ Assessment] 05/07/18 05/07/18 05/07/18 06:00 06:25 06:31 Temperature Pulse Rate 80 74 78 Pulse Rate [ From Monitor] Respiratory 17 21 Rate Blood Pressure 124/81 124/81 124/81 O2 Sat by Pulse 98 100 Oximetry O2 Sat by Pulse Oximetry [ Assessment] 05/07/18 07:01 Temperature Pulse Rate 74 Pulse Rate [ From Monitor] Respiratory 14 Rate Blood Pressure 119/77 O2 Sat by Pulse 95 Oximetry O2 Sat by Pulse Oximetry [ Assessment] Constitutional: no acute distress, other (Elderly looking AAM, normocephalic and atraumatic with normal work of breathing, s/p trach to ATP) Eyes: non-icteric ENT: oropharynx moist, other (s/p tracheostomy) Neck: supple, no lymphadenopathy, no JVD, other (large neck circumference) Effort: normal Ascultation: Bilateral: diminished breath sounds, rhonchi Percussion: Bilateral: not dull Cardiovascular: regular rate and rhythm Gastrointestinal: normoactive bowel sounds, soft, non-tender, non-distended, other (protuberant s/p PEG) Integumentary: normal Extremities: no cyanosis, no edema, pulses normal, no ischemia or petechiae Neurologic: non-focal exam (moving all extremities), unable to assess, other (opens eyes spontaneously, not following my prompts, appears to be traking voice) Psychiatric: other (unable to assess) CBC and BMP: 05/07/18 04:40 05/07/18 04:40 ABG, PT/INR, D-dimer: ABG POC ABG pH 7.454 (7.35-7.45) H 05/06/18 21: POC ABG pCO2 39.2 (35-45) 05/06/18 21:19 POC ABG pO2 92 (80-105) 05/06/18 21: POC ABG HCO3 27.5 (22-26 mml/L) 05/06/18 21: POC ABG Total CO2 29 (23-27mmol/L) 05/06/18 21:19 POC ABG O2 Sat 98 05/06/18 21:19 PT/INR, D-dimer PT 13.8 Sec. (12.2-14.9) 04/29/18 21:03 INR 1.00 (0.87-1.13) 04/29/18 21:03 Abnormal lab findings: Abnormal Labs 04/09/18 04/09/18 04/09/18 23:16 23:16 23:16 WBC 13.6 H RBC Hgb Hct MCHC RDW Plt Count Lymph % (Auto) 9.4 L Dickson % (Auto) Lymph # Dickson # Seg Neutrophils % 87.3 H Seg Neutrophils # 11.9 H POC ABG pH POC ABG pCO2 POC ABG pO2 Sodium 132 L Potassium Chloride 92.7 L Carbon Dioxide BUN Creatinine Glucose 143 H POC Glucose Hemoglobin A1c Lactic Acid 2.10 H* Calcium Phosphorus Magnesium Total Bilirubin 2.20 H Direct Bilirubin AST 107 H Total Creatine Kinase CK-MB (CK-2) C-Reactive Protein Total Protein Albumin TSH Free T4 04/10/18 04/10/18 04/10/18 00:38 00:55 01:13 WBC RBC Hgb Hct MCHC RDW Plt Count Lymph % (Auto) Dickson % (Auto) Lymph # Dickson # Seg Neutrophils % Seg Neutrophils # POC ABG pH POC ABG pCO2 POC ABG pO2 Sodium Potassium Chloride Carbon Dioxide BUN Creatinine Glucose POC Glucose 117 H 121 H Hemoglobin A1c Lactic Acid 2.10 H* Calcium Phosphorus Magnesium Total Bilirubin Direct Bilirubin AST Total Creatine Kinase CK-MB (CK-2) C-Reactive Protein Total Protein Albumin TSH Free T4 04/10/18 04/10/18 04/10/18 02:10 03:51 04:07 WBC 14.0 H RBC Hgb Hct MCHC RDW Plt Count Lymph % (Auto) 7.5 L Dickson % (Auto) Lymph # 1.1 L Dickson # 1.0 H Seg Neutrophils % 84.9 H Seg Neutrophils # 11.8 H POC ABG pH POC ABG pCO2 POC ABG pO2 Sodium Potassium Chloride Carbon Dioxide BUN Creatinine Glucose POC Glucose 153 H 158 H Hemoglobin A1c Lactic Acid Calcium Phosphorus Magnesium Total Bilirubin Direct Bilirubin AST Total Creatine Kinase CK-MB (CK-2) C-Reactive Protein Total Protein Albumin TSH Free T4 04/10/18 04/10/18 04/10/18 04:07 06:56 09:48 WBC RBC Hgb Hct MCHC RDW Plt Count Lymph % (Auto) Dickson % (Auto) Lymph # Dickson # Seg Neutrophils % Seg Neutrophils # POC ABG pH POC ABG pCO2 POC ABG pO2 Sodium 130 L Potassium Chloride 93.4 L Carbon Dioxide BUN Creatinine Glucose 180 H POC Glucose 251 H 245 H Hemoglobin A1c Lactic Acid Calcium 7.9 L D Phosphorus Magnesium Total Bilirubin Direct Bilirubin AST Total Creatine Kinase 7857 H CK-MB (CK-2) 34.3 H C-Reactive Protein Total Protein Albumin TSH Free T4 04/10/18 04/10/18 04/10/18 10:37 12:44 17:31 WBC RBC Hgb Hct MCHC RDW Plt Count Lymph % (Auto) Dickson % (Auto) Lymph # Dickson # Seg Neutrophils % Seg Neutrophils # POC ABG pH POC ABG pCO2 45.6 H POC ABG pO2 374 H Sodium Potassium Chloride Carbon Dioxide BUN Creatinine Glucose POC Glucose 348 H Hemoglobin A1c Lactic Acid Calcium Phosphorus Magnesium Total Bilirubin Direct Bilirubin AST Total Creatine Kinase 9880 H CK-MB (CK-2) 30.0 H C-Reactive Protein Total Protein Albumin TSH Free T4 04/10/18 04/11/18 04/11/18 23:36 03:52 04:28 WBC 12.2 H RBC Hgb Hct MCHC RDW Plt Count 132 L Lymph % (Auto) Dickson % (Auto) 10.2 H Lymph # Dickson # 1.2 H Seg Neutrophils % 75.1 H Seg Neutrophils # 9.1 H POC ABG pH 7.495 H POC ABG pCO2 32.4 L POC ABG pO2 Sodium Potassium Chloride Carbon Dioxide BUN Creatinine Glucose POC Glucose 148 H Hemoglobin A1c Lactic Acid Calcium Phosphorus Magnesium Total Bilirubin Direct Bilirubin AST Total Creatine Kinase CK-MB (CK-2) C-Reactive Protein Total Protein Albumin TSH Free T4 04/11/18 04/11/18 04/11/18 04:28 04:28 05:22 WBC RBC Hgb Hct MCHC RDW Plt Count Lymph % (Auto) Dickson % (Auto) Lymph # Dickson # Seg Neutrophils % Seg Neutrophils # POC ABG pH POC ABG pCO2 POC ABG pO2 Sodium 133 L Potassium 3.5 L Chloride 95.1 L Carbon Dioxide BUN 7 L Creatinine Glucose 206 H POC Glucose 178 H Hemoglobin A1c 6.4 H Lactic Acid Calcium 7.7 L Phosphorus 1.80 L Magnesium 1.50 L Total Bilirubin 4.10 H Direct Bilirubin AST 168 H Total Creatine Kinase 9352 H CK-MB (CK-2) C-Reactive Protein Total Protein Albumin 3.4 L TSH Free T4 04/11/18 04/11/18 04/11/18 11:28 13:43 17:30 WBC RBC Hgb Hct MCHC RDW Plt Count Lymph % (Auto) Dickson % (Auto) Lymph # Dickson # Seg Neutrophils % Seg Neutrophils # POC ABG pH POC ABG pCO2 POC ABG pO2 Sodium Potassium Chloride Carbon Dioxide BUN Creatinine Glucose POC Glucose 196 H 142 H Hemoglobin A1c Lactic Acid Calcium Phosphorus Magnesium Total Bilirubin Direct Bilirubin AST Total Creatine Kinase CK-MB (CK-2) C-Reactive Protein 7.20 H Total Protein Albumin TSH Free T4 04/11/18 04/11/18 04/12/18 18:59 23:23 04:00 WBC RBC Hgb Hct MCHC RDW Plt Count Lymph % (Auto) Dickson % (Auto) Lymph # Dickson # Seg Neutrophils % Seg Neutrophils # POC ABG pH 7.489 H POC ABG pCO2 34.5 L POC ABG pO2 Sodium Potassium 3.3 L Chloride Carbon Dioxide BUN 6 L Creatinine Glucose 151 H POC Glucose 129 H Hemoglobin A1c Lactic Acid Calcium 7.3 L Phosphorus 2.00 L Magnesium Total Bilirubin 2.80 H Direct Bilirubin AST 121 H Total Creatine Kinase 5177 H CK-MB (CK-2) C-Reactive Protein Total Protein 5.9 L Albumin 3.1 L TSH Free T4 04/12/18 04/12/18 04/12/18 04:00 04:04 05:21 WBC RBC Hgb Hct 34.9 L MCHC 35 H RDW Plt Count 128 L Lymph % (Auto) Dickson % (Auto) 10.6 H Lymph # Dickson # 0.9 H Seg Neutrophils % Seg Neutrophils # POC ABG pH 7.454 H POC ABG pCO2 POC ABG pO2 Sodium Potassium Chloride Carbon Dioxide BUN Creatinine Glucose POC Glucose 136 H Hemoglobin A1c Lactic Acid Calcium Phosphorus Magnesium Total Bilirubin Direct Bilirubin AST Total Creatine Kinase CK-MB (CK-2) C-Reactive Protein Total Protein Albumin TSH Free T4 04/12/18 04/13/18 04/13/18 11:23 00:21 04:57 WBC RBC Hgb Hct MCHC RDW Plt Count Lymph % (Auto) Dickson % (Auto) Lymph # Dickson # Seg Neutrophils % Seg Neutrophils # POC ABG pH POC ABG pCO2 34.7 L POC ABG pO2 125 H Sodium Potassium Chloride Carbon Dioxide BUN Creatinine Glucose POC Glucose 166 H 143 H Hemoglobin A1c Lactic Acid Calcium Phosphorus Magnesium Total Bilirubin Direct Bilirubin AST Total Creatine Kinase CK-MB (CK-2) C-Reactive Protein Total Protein Albumin TSH Free T4 0204/13/18 04/13/18 05:02 05:02 12:16 WBC RBC Hgb Hct MCHC RDW Plt Count Lymph % (Auto) Dickson % (Auto) Lymph # Dickson # Seg Neutrophils % Seg Neutrophils # POC ABG pH POC ABG pCO2 POC ABG pO2 Sodium Potassium Chloride Carbon Dioxide BUN Creatinine Glucose POC Glucose 161 H 170 H Hemoglobin A1c Lactic Acid Calcium Phosphorus Magnesium Total Bilirubin Direct Bilirubin AST Total Creatine Kinase 3456 H CK-MB (CK-2) C-Reactive Protein Total Protein Albumin TSH Free T4 04/13/18 04/13/18 04/14/18 18:52 23:09 04:35 WBC RBC Hgb Hct MCHC RDW Plt Count Lymph % (Auto) Dickson % (Auto) Lymph # Dickson # Seg Neutrophils % Seg Neutrophils # POC ABG pH 7.467 H POC ABG pCO2 POC ABG pO2 Sodium Potassium Chloride Carbon Dioxide BUN Creatinine Glucose POC Glucose 196 H 219 H Hemoglobin A1c Lactic Acid Calcium Phosphorus Magnesium Total Bilirubin Direct Bilirubin AST Total Creatine Kinase CK-MB (CK-2) C-Reactive Protein Total Protein Albumin TSH Free T4 04/14/18 04/14/18 04/14/18 05:00 05:26 11:20 WBC RBC Hgb Hct MCHC RDW Plt Count Lymph % (Auto) Dickson % (Auto) Lymph # Dickson # Seg Neutrophils % Seg Neutrophils # POC ABG pH POC ABG pCO2 POC ABG pO2 Sodium Potassium Chloride Carbon Dioxide BUN Creatinine Glucose POC Glucose 249 H 260 H Hemoglobin A1c Lactic Acid Calcium Phosphorus Magnesium Total Bilirubin Direct Bilirubin AST Total Creatine Kinase 2247 H CK-MB (CK-2) C-Reactive Protein Total Protein Albumin TSH Free T4 04/14/18 04/14/18 04/14/18 17:04 17:51 23:53 WBC RBC Hgb Hct MCHC RDW Plt Count Lymph % (Auto) Dickson % (Auto) Lymph # Dickson # Seg Neutrophils % Seg Neutrophils # POC ABG pH POC ABG pCO2 POC ABG pO2 79 L Sodium Potassium Chloride Carbon Dioxide BUN Creatinine Glucose POC Glucose 284 H 203 H Hemoglobin A1c Lactic Acid Calcium Phosphorus Magnesium Total Bilirubin Direct Bilirubin AST Total Creatine Kinase CK-MB (CK-2) C-Reactive Protein Total Protein Albumin TSH Free T4 04/15/18 04/15/18 04/15/18 04:24 05:26 12:56 WBC RBC Hgb Hct MCHC RDW Plt Count Lymph % (Auto) Dickson % (Auto) Lymph # Dickson # Seg Neutrophils % Seg Neutrophils # POC ABG pH POC ABG pCO2 45.4 H POC ABG pO2 78 L Sodium Potassium Chloride Carbon Dioxide BUN Creatinine Glucose POC Glucose 194 H 200 H Hemoglobin A1c Lactic Acid Calcium Phosphorus Magnesium Total Bilirubin Direct Bilirubin AST Total Creatine Kinase CK-MB (CK-2) C-Reactive Protein Total Protein Albumin TSH Free T4 04/15/18 04/15/18 04/16/18 17:46 23:57 05:08 WBC RBC Hgb Hct MCHC RDW Plt Count Lymph % (Auto) Dickson % (Auto) Lymph # Dickson # Seg Neutrophils % Seg Neutrophils # POC ABG pH POC ABG pCO2 POC ABG pO2 Sodium Potassium Chloride Carbon Dioxide BUN Creatinine Glucose POC Glucose 118 H 204 H 221 H Hemoglobin A1c Lactic Acid Calcium Phosphorus Magnesium Total Bilirubin Direct Bilirubin AST Total Creatine Kinase CK-MB (CK-2) C-Reactive Protein Total Protein Albumin TSH Free T4 04/16/18 04/16/18 04/16/18 05:16 12:23 13:07 WBC RBC Hgb Hct MCHC RDW Plt Count Lymph % (Auto) Dickson % (Auto) Lymph # Dickson # Seg Neutrophils % Seg Neutrophils # POC ABG pH 7.456 H POC ABG pCO2 46.7 H POC ABG pO2 Sodium Potassium Chloride Carbon Dioxide BUN Creatinine Glucose POC Glucose 271 H Hemoglobin A1c Lactic Acid Calcium Phosphorus Magnesium Total Bilirubin Direct Bilirubin AST Total Creatine Kinase CK-MB (CK-2) C-Reactive Protein Total Protein Albumin TSH Free T4 04/16/18 04/17/18 04/17/18 19:14 00:08 05:46 WBC RBC Hgb Hct MCHC RDW Plt Count Lymph % (Auto) Dickson % (Auto) Lymph # Dickson # Seg Neutrophils % Seg Neutrophils # POC ABG pH POC ABG pCO2 POC ABG pO2 Sodium Potassium Chloride Carbon Dioxide BUN Creatinine Glucose POC Glucose 221 H 238 H 274 H Hemoglobin A1c Lactic Acid Calcium Phosphorus Magnesium Total Bilirubin Direct Bilirubin AST Total Creatine Kinase CK-MB (CK-2) C-Reactive Protein Total Protein Albumin TSH Free T4 04/17/18 04/17/18 04/17/18 13:50 13:59 14:20 WBC RBC Hgb Hct MCHC RDW Plt Count Lymph % (Auto) Dickson % (Auto) Lymph # Dickson # Seg Neutrophils % Seg Neutrophils # POC ABG pH 7.474 H POC ABG pCO2 POC ABG pO2 Sodium Potassium 3.4 L Chloride 93.6 L Carbon Dioxide 33 H BUN Creatinine Glucose 305 H POC Glucose 315 H Hemoglobin A1c Lactic Acid Calcium Phosphorus Magnesium Total Bilirubin Direct Bilirubin AST Total Creatine Kinase CK-MB (CK-2) C-Reactive Protein Total Protein Albumin TSH Free T4 04/17/18 04/17/18 04/18/18 17:04 23:26 04:20 WBC RBC Hgb Hct MCHC RDW Plt Count Lymph % (Auto) Dickson % (Auto) Lymph # Dickson # Seg Neutrophils % Seg Neutrophils # POC ABG pH 7.473 H POC ABG pCO2 POC ABG pO2 Sodium Potassium Chloride Carbon Dioxide BUN Creatinine Glucose POC Glucose 280 H 284 H Hemoglobin A1c Lactic Acid Calcium Phosphorus Magnesium Total Bilirubin Direct Bilirubin AST Total Creatine Kinase CK-MB (CK-2) C-Reactive Protein Total Protein Albumin TSH Free T4 04/18/18 04/18/18 04/18/18 05:14 08:32 11:00 WBC RBC Hgb Hct MCHC RDW Plt Count Lymph % (Auto) Dickson % (Auto) Lymph # Dickson # Seg Neutrophils % Seg Neutrophils # POC ABG pH POC ABG pCO2 POC ABG pO2 Sodium Potassium Chloride Carbon Dioxide BUN Creatinine Glucose POC Glucose 286 H 296 H Hemoglobin A1c Lactic Acid Calcium Phosphorus Magnesium Total Bilirubin Direct Bilirubin 0.3 H AST 87 H Total Creatine Kinase CK-MB (CK-2) C-Reactive Protein Total Protein Albumin 3.7 L TSH Free T4 04/18/18 04/18/18 04/19/18 12:03 18:15 00:08 WBC RBC Hgb Hct MCHC RDW Plt Count Lymph % (Auto) Dickson % (Auto) Lymph # Dickson # Seg Neutrophils % Seg Neutrophils # POC ABG pH POC ABG pCO2 POC ABG pO2 Sodium Potassium Chloride Carbon Dioxide BUN Creatinine Glucose POC Glucose 353 H 327 H 331 H Hemoglobin A1c Lactic Acid Calcium Phosphorus Magnesium Total Bilirubin Direct Bilirubin AST Total Creatine Kinase CK-MB (CK-2) C-Reactive Protein Total Protein Albumin TSH Free T4 04/19/18 04/19/18 04/19/18 04:46 05:26 11:48 WBC RBC Hgb Hct MCHC RDW Plt Count Lymph % (Auto) Dickson % (Auto) Lymph # Dickson # Seg Neutrophils % Seg Neutrophils # POC ABG pH 7.497 H POC ABG pCO2 POC ABG pO2 119 H Sodium Potassium Chloride Carbon Dioxide BUN Creatinine Glucose POC Glucose 323 H 266 H Hemoglobin A1c Lactic Acid Calcium Phosphorus Magnesium Total Bilirubin Direct Bilirubin AST Total Creatine Kinase CK-MB (CK-2) C-Reactive Protein Total Protein Albumin TSH Free T4 04/19/18 04/19/18 04/20/18 17:52 23:37 00:07 WBC RBC Hgb Hct MCHC RDW Plt Count Lymph % (Auto) Dickson % (Auto) Lymph # Dickson # Seg Neutrophils % Seg Neutrophils # POC ABG pH POC ABG pCO2 POC ABG pO2 Sodium Potassium Chloride Carbon Dioxide BUN Creatinine Glucose POC Glucose 284 H 285 H 312 H Hemoglobin A1c Lactic Acid Calcium Phosphorus Magnesium Total Bilirubin Direct Bilirubin AST Total Creatine Kinase CK-MB (CK-2) C-Reactive Protein Total Protein Albumin TSH Free T4 04/20/18 04/20/18 04/20/18 04:09 04:09 04:37 WBC RBC Hgb Hct 34.7 L MCHC 35 H RDW Plt Count Lymph % (Auto) Dickson % (Auto) Lymph # Dickson # Seg Neutrophils % Seg Neutrophils # POC ABG pH POC ABG pCO2 POC ABG pO2 Sodium Potassium 3.5 L Chloride 95.7 L Carbon Dioxide 34 H BUN Creatinine Glucose 286 H POC Glucose 267 H Hemoglobin A1c Lactic Acid Calcium Phosphorus Magnesium Total Bilirubin Direct Bilirubin AST Total Creatine Kinase CK-MB (CK-2) C-Reactive Protein Total Protein Albumin TSH Free T4 04/20/18 04/20/18 04/20/18 12:32 17:54 21:07 WBC RBC Hgb Hct MCHC RDW Plt Count Lymph % (Auto) Dickson % (Auto) Lymph # Dickson # Seg Neutrophils % Seg Neutrophils # POC ABG pH POC ABG pCO2 POC ABG pO2 Sodium Potassium Chloride Carbon Dioxide BUN Creatinine Glucose POC Glucose 220 H 298 H 187 H Hemoglobin A1c Lactic Acid Calcium Phosphorus Magnesium Total Bilirubin Direct Bilirubin AST Total Creatine Kinase CK-MB (CK-2) C-Reactive Protein Total Protein Albumin TSH Free T4 04/21/18 04/21/18 04/21/18 00:04 05:00 05:41 WBC RBC Hgb Hct MCHC RDW Plt Count Lymph % (Auto) Dickson % (Auto) Lymph # Dickson # Seg Neutrophils % Seg Neutrophils # POC ABG pH POC ABG pCO2 POC ABG pO2 Sodium Potassium Chloride 95.2 L Carbon Dioxide 34 H BUN Creatinine Glucose 179 H POC Glucose 183 H 166 H Hemoglobin A1c Lactic Acid Calcium Phosphorus Magnesium Total Bilirubin Direct Bilirubin AST Total Creatine Kinase CK-MB (CK-2) C-Reactive Protein Total Protein Albumin TSH Free T4 04/21/18 04/21/18 04/21/18 11:55 18:09 23:36 WBC RBC Hgb Hct MCHC RDW Plt Count Lymph % (Auto) Dickson % (Auto) Lymph # Dickson # Seg Neutrophils % Seg Neutrophils # POC ABG pH POC ABG pCO2 POC ABG pO2 Sodium Potassium Chloride Carbon Dioxide BUN Creatinine Glucose POC Glucose 219 H 247 H 229 H Hemoglobin A1c Lactic Acid Calcium Phosphorus Magnesium Total Bilirubin Direct Bilirubin AST Total Creatine Kinase CK-MB (CK-2) C-Reactive Protein Total Protein Albumin TSH Free T4 04/22/18 04/22/18 04/22/18 04:07 04:07 05:08 WBC RBC Hgb Hct MCHC 35 H RDW 15.3 H Plt Count Lymph % (Auto) Dickson % (Auto) Lymph # Dickson # Seg Neutrophils % Seg Neutrophils # POC ABG pH POC ABG pCO2 POC ABG pO2 Sodium Potassium Chloride 97.4 L Carbon Dioxide 31 H BUN Creatinine Glucose 177 H POC Glucose 200 H Hemoglobin A1c Lactic Acid Calcium Phosphorus Magnesium Total Bilirubin Direct Bilirubin AST Total Creatine Kinase CK-MB (CK-2) C-Reactive Protein Total Protein Albumin TSH Free T4 04/22/18 04/22/18 04/23/18 12:15 18:04 04:55 WBC RBC Hgb Hct MCHC RDW Plt Count Lymph % (Auto) Dickson % (Auto) Lymph # Dickson # Seg Neutrophils % Seg Neutrophils # POC ABG pH POC ABG pCO2 POC ABG pO2 Sodium Potassium Chloride Carbon Dioxide BUN 23 H Creatinine Glucose 274 H POC Glucose 189 H 191 H Hemoglobin A1c Lactic Acid Calcium Phosphorus Magnesium Total Bilirubin Direct Bilirubin AST Total Creatine Kinase CK-MB (CK-2) C-Reactive Protein Total Protein Albumin TSH Free T4 04/23/18 04/23/18 04/23/18 05:21 11:06 17:46 WBC RBC Hgb Hct MCHC RDW Plt Count Lymph % (Auto) Dickson % (Auto) Lymph # Dickson # Seg Neutrophils % Seg Neutrophils # POC ABG pH POC ABG pCO2 POC ABG pO2 Sodium Potassium Chloride Carbon Dioxide BUN Creatinine Glucose POC Glucose 143 H 176 H 142 H Hemoglobin A1c Lactic Acid Calcium Phosphorus Magnesium Total Bilirubin Direct Bilirubin AST Total Creatine Kinase CK-MB (CK-2) C-Reactive Protein Total Protein Albumin TSH Free T4 04/23/18 04/24/18 04/24/18 23:35 06:02 11:37 WBC RBC Hgb Hct MCHC RDW Plt Count Lymph % (Auto) Dickson % (Auto) Lymph # Dickson # Seg Neutrophils % Seg Neutrophils # POC ABG pH POC ABG pCO2 POC ABG pO2 Sodium Potassium Chloride Carbon Dioxide BUN Creatinine Glucose POC Glucose 127 H 175 H 188 H Hemoglobin A1c Lactic Acid Calcium Phosphorus Magnesium Total Bilirubin Direct Bilirubin AST Total Creatine Kinase CK-MB (CK-2) C-Reactive Protein Total Protein Albumin TSH Free T4 04/24/18 04/24/18 04/24/18 16:50 18:40 20:23 WBC RBC Hgb Hct MCHC RDW Plt Count Lymph % (Auto) Dickson % (Auto) Lymph # Dickson # Seg Neutrophils % Seg Neutrophils # POC ABG pH POC ABG pCO2 POC ABG pO2 Sodium Potassium Chloride Carbon Dioxide BUN Creatinine Glucose POC Glucose 134 H 148 H Hemoglobin A1c Lactic Acid Calcium Phosphorus Magnesium Total Bilirubin Direct Bilirubin AST Total Creatine Kinase CK-MB (CK-2) C-Reactive Protein Total Protein Albumin TSH 47.760 H Free T4 0.10 L 04/24/18 04/25/18 04/25/18 23:14 05:22 05:22 WBC RBC Hgb Hct MCHC 35 H RDW 15.4 H Plt Count Lymph % (Auto) Dickson % (Auto) Lymph # Dickson # Seg Neutrophils % Seg Neutrophils # POC ABG pH POC ABG pCO2 POC ABG pO2 Sodium 136 L Potassium Chloride 95.0 L Carbon Dioxide BUN Creatinine Glucose 210 H POC Glucose 145 H Hemoglobin A1c Lactic Acid Calcium Phosphorus Magnesium Total Bilirubin Direct Bilirubin AST Total Creatine Kinase CK-MB (CK-2) C-Reactive Protein Total Protein Albumin TSH Free T4 04/25/18 04/25/18 04/25/18 05:44 12:19 13:06 WBC RBC Hgb Hct MCHC RDW Plt Count Lymph % (Auto) Dickson % (Auto) Lymph # Dickson # Seg Neutrophils % Seg Neutrophils # POC ABG pH 7.471 H POC ABG pCO2 POC ABG pO2 115 H Sodium Potassium Chloride Carbon Dioxide BUN Creatinine Glucose POC Glucose 176 H 231 H Hemoglobin A1c Lactic Acid Calcium Phosphorus Magnesium Total Bilirubin Direct Bilirubin AST Total Creatine Kinase CK-MB (CK-2) C-Reactive Protein Total Protein Albumin TSH Free T4 04/25/18 04/25/18 04/26/18 17:54 20:09 00:01 WBC RBC Hgb Hct MCHC RDW Plt Count Lymph % (Auto) Dickson % (Auto) Lymph # Dickson # Seg Neutrophils % Seg Neutrophils # POC ABG pH POC ABG pCO2 POC ABG pO2 Sodium Potassium Chloride Carbon Dioxide BUN Creatinine Glucose POC Glucose 196 H 119 H 174 H Hemoglobin A1c Lactic Acid Calcium Phosphorus Magnesium Total Bilirubin Direct Bilirubin AST Total Creatine Kinase CK-MB (CK-2) C-Reactive Protein Total Protein Albumin TSH Free T4 04/26/18 04/26/18 04/26/18 05:10 12:03 15:20 WBC RBC Hgb Hct MCHC RDW Plt Count Lymph % (Auto) Dickson % (Auto) Lymph # [place] # Seg Neutrophils % Seg Neutrophils # POC ABG pH POC ABG pCO2 POC ABG pO2 Sodium Potassium Chloride Carbon Dioxide BUN Creatinine Glucose POC Glucose 212 H 222 H 113 H Hemoglobin A1c Lactic Acid Calcium Phosphorus Magnesium Total Bilirubin Direct Bilirubin AST Total Creatine Kinase CK-MB (CK-2) C-Reactive Protein Total Protein Albumin TSH Free T4 04/26/18 04/26/18 04/27/18 18:08 23:39 05:10 WBC RBC Hgb Hct MCHC RDW Plt Count Lymph % (Auto) [place] % (Auto) Lymph # [place] # Seg Neutrophils % Seg Neutrophils # POC ABG pH POC ABG pCO2 POC ABG pO2 Sodium Potassium Chloride Carbon Dioxide BUN Creatinine Glucose POC Glucose 110 H 165 H 137 H Hemoglobin A1c Lactic Acid Calcium Phosphorus Magnesium Total Bilirubin Direct Bilirubin AST Total Creatine Kinase CK-MB (CK-2) C-Reactive Protein Total Protein Albumin TSH Free T4 04/27/18 04/27/18 04/27/18 10:04 11:23 17:36 WBC RBC Hgb Hct MCHC RDW Plt Count Lymph % (Auto) [place] % (Auto) Lymph # [place] # Seg Neutrophils % Seg Neutrophils # POC ABG pH POC ABG pCO2 POC ABG pO2 Sodium Potassium Chloride Carbon Dioxide BUN Creatinine Glucose POC Glucose 190 H 258 H 198 H Hemoglobin A1c Lactic Acid Calcium Phosphorus Magnesium Total Bilirubin Direct Bilirubin AST Total Creatine Kinase CK-MB (CK-2) C-Reactive Protein Total Protein Albumin TSH Free T4 04/27/18 04/28/18 04/28/18 23:23 05:19 13:06 WBC RBC Hgb Hct MCHC RDW Plt Count Lymph % (Auto) [place] % (Auto) Lymph # [place] # Seg Neutrophils % Seg Neutrophils # POC ABG pH POC ABG pCO2 POC ABG pO2 Sodium Potassium Chloride Carbon Dioxide BUN Creatinine Glucose POC Glucose 131 H 178 H 194 H Hemoglobin A1c Lactic Acid Calcium Phosphorus Magnesium Total Bilirubin Direct Bilirubin AST Total Creatine Kinase CK-MB (CK-2) C-Reactive Protein Total Protein Albumin TSH Free T4 04/28/18 04/29/18 04/29/18 16:59 00:24 05:49 WBC RBC Hgb Hct MCHC RDW Plt Count Lymph % (Auto) [place] % (Auto) Lymph # [place] # Seg Neutrophils % Seg Neutrophils # POC ABG pH POC ABG pCO2 POC ABG pO2 Sodium Potassium Chloride Carbon Dioxide BUN Creatinine Glucose POC Glucose 155 H 166 H 226 H Hemoglobin A1c Lactic Acid Calcium Phosphorus Magnesium Total Bilirubin Direct Bilirubin AST Total Creatine Kinase CK-MB (CK-2) C-Reactive Protein Total Protein Albumin TSH Free T4 04/29/18 04/29/18 04/29/18 12:12 13:29 13:29 WBC RBC Hgb Hct 34.8 L MCHC RDW Plt Count Lymph % (Auto) [place] % (Auto) 9.8 H Lymph # [place] # Seg Neutrophils % Seg Neutrophils # POC ABG pH POC ABG pCO2 POC ABG pO2 Sodium 135 L Potassium Chloride Carbon Dioxide BUN Creatinine Glucose 214 H POC Glucose 217 H Hemoglobin A1c Lactic Acid Calcium Phosphorus Magnesium Total Bilirubin Direct Bilirubin AST Total Creatine Kinase CK-MB (CK-2) C-Reactive Protein Total Protein Albumin TSH Free T4 04/29/18 04/29/18 04/30/18 21:56 23:49 05:15 WBC RBC Hgb Hct MCHC RDW Plt Count Lymph % (Auto) [place] % (Auto) Lymph # [place] # Seg Neutrophils % Seg Neutrophils # POC ABG pH POC ABG pCO2 POC ABG pO2 Sodium Potassium Chloride Carbon Dioxide BUN Creatinine Glucose POC Glucose 129 H 148 H 113 H Hemoglobin A1c Lactic Acid Calcium Phosphorus Magnesium Total Bilirubin Direct Bilirubin AST Total Creatine Kinase CK-MB (CK-2) C-Reactive Protein Total Protein Albumin TSH Free T4 04/30/18 04/30/18 04/30/18 05:28 12:10 18:12 WBC RBC Hgb Hct MCHC RDW Plt Count Lymph % (Auto) [place] % (Auto) Lymph # [place] # Seg Neutrophils % Seg Neutrophils # POC ABG pH POC ABG pCO2 POC ABG pO2 Sodium Potassium Chloride Carbon Dioxide BUN Creatinine Glucose POC Glucose 118 H 159 H 149 H Hemoglobin A1c Lactic Acid Calcium Phosphorus Magnesium Total Bilirubin Direct Bilirubin AST Total Creatine Kinase CK-MB (CK-2) C-Reactive Protein Total Protein Albumin TSH Free T4 04/30/18 04/30/18 05/01/18 20:12 23:31 05:48 WBC RBC Hgb Hct MCHC RDW Plt Count Lymph % (Auto) [place] % (Auto) Lymph # [place] # Seg Neutrophils % Seg Neutrophils # POC ABG pH POC ABG pCO2 POC ABG pO2 Sodium Potassium Chloride Carbon Dioxide BUN Creatinine Glucose POC Glucose 187 H 208 H 172 H Hemoglobin A1c Lactic Acid Calcium Phosphorus Magnesium Total Bilirubin Direct Bilirubin AST Total Creatine Kinase CK-MB (CK-2) C-Reactive Protein Total Protein Albumin TSH Free T4 05/01/18 05/01/18 05/01/18 12:25 15:05 18:06 WBC 13.3 H RBC Hgb 11.3 L Hct 33.1 L MCHC RDW Plt Count Lymph % (Auto) 9.8 L [place] % (Auto) 7.7 H Lymph # [place] # 1.0 H Seg Neutrophils % 81.9 H Seg Neutrophils # 10.9 H POC ABG pH POC ABG pCO2 POC ABG pO2 Sodium Potassium Chloride Carbon Dioxide BUN Creatinine Glucose POC Glucose 151 H 227 H Hemoglobin A1c Lactic Acid Calcium Phosphorus Magnesium Total Bilirubin Direct Bilirubin AST Total Creatine Kinase CK-MB (CK-2) C-Reactive Protein Total Protein Albumin TSH Free T4 05/01/18 05/02/18 05/02/18 23:24 04:56 04:56 WBC 12.9 H RBC Hgb 10.9 L Hct 32.8 L MCHC RDW 15.5 H Plt Count Lymph % (Auto) [place] % (Auto) Lymph # [place] # Seg Neutrophils % Seg Neutrophils # POC ABG pH POC ABG pCO2 POC ABG pO2 Sodium 136 L Potassium Chloride 94.8 L Carbon Dioxide BUN Creatinine Glucose 175 H POC Glucose 157 H Hemoglobin A1c Lactic Acid Calcium Phosphorus Magnesium Total Bilirubin Direct Bilirubin AST Total Creatine Kinase CK-MB (CK-2) C-Reactive Protein Total Protein Albumin TSH Free T4 05/02/18 05/02/18 05/02/18 05:24 12:36 18:14 WBC RBC Hgb Hct MCHC RDW Plt Count Lymph % (Auto) [place] % (Auto) Lymph # [place] # Seg Neutrophils % Seg Neutrophils # POC ABG pH POC ABG pCO2 POC ABG pO2 Sodium Potassium Chloride Carbon Dioxide BUN Creatinine Glucose POC Glucose 178 H 269 H 209 H Hemoglobin A1c Lactic Acid Calcium Phosphorus Magnesium Total Bilirubin Direct Bilirubin AST Total Creatine Kinase CK-MB (CK-2) C-Reactive Protein Total Protein Albumin TSH Free T4 05/03/18 05/03/18 05/03/18 00:15 03:20 03:20 WBC RBC 3.54 L Hgb 11.0 L Hct 32.0 L MCHC 35 H RDW 15.5 H Plt Count Lymph % (Auto) [place] % (Auto) Lymph # [place] # Seg Neutrophils % Seg Neutrophils # POC ABG pH POC ABG pCO2 POC ABG pO2 Sodium 135 L Potassium Chloride 95.8 L Carbon Dioxide BUN Creatinine 0.7 L Glucose 226 H POC Glucose 227 H Hemoglobin A1c Lactic Acid Calcium Phosphorus Magnesium Total Bilirubin Direct Bilirubin AST Total Creatine Kinase CK-MB (CK-2) C-Reactive Protein Total Protein Albumin TSH Free T4 05/03/18 05/03/18 05/03/18 05:26 08:53 11:46 WBC RBC Hgb Hct MCHC RDW Plt Count Lymph % (Auto) [place] % (Auto) Lymph # [place] # Seg Neutrophils % Seg Neutrophils # POC ABG pH POC ABG pCO2 POC ABG pO2 Sodium Potassium Chloride Carbon Dioxide BUN Creatinine Glucose POC Glucose 194 H 216 H 260 H Hemoglobin A1c Lactic Acid Calcium Phosphorus Magnesium Total Bilirubin Direct Bilirubin AST Total Creatine Kinase CK-MB (CK-2) C-Reactive Protein Total Protein Albumin TSH Free T4 05/03/18 05/04/18 05/04/18 18:00 00:29 05:07 WBC RBC Hgb Hct MCHC RDW Plt Count Lymph % (Auto) [place] % (Auto) Lymph # [place] # Seg Neutrophils % Seg Neutrophils # POC ABG pH POC ABG pCO2 POC ABG pO2 Sodium Potassium Chloride Carbon Dioxide BUN Creatinine Glucose POC Glucose 261 H 226 H 212 H Hemoglobin A1c Lactic Acid Calcium Phosphorus Magnesium Total Bilirubin Direct Bilirubin AST Total Creatine Kinase CK-MB (CK-2) C-Reactive Protein Total Protein Albumin TSH Free T4 05/04/18 05/04/18 05/04/18 12:16 17:31 21:19 WBC RBC Hgb Hct MCHC RDW Plt Count Lymph % (Auto) [place] % (Auto) Lymph # [place] # Seg Neutrophils % Seg Neutrophils # POC ABG pH 7.505 H POC ABG pCO2 POC ABG pO2 Sodium Potassium Chloride Carbon Dioxide BUN Creatinine Glucose POC Glucose 239 H 168 H Hemoglobin A1c Lactic Acid Calcium Phosphorus Magnesium Total Bilirubin Direct Bilirubin AST Total Creatine Kinase CK-MB (CK-2) C-Reactive Protein Total Protein Albumin TSH Free T4 05/04/18 05/05/18 05/05/18 23:53 04:27 04:27 WBC RBC Hgb 11.6 L Hct 34.2 L MCHC RDW 15.4 H Plt Count Lymph % (Auto) [place] % (Auto) 11.8 H Lymph # [place] # 1.0 H Seg Neutrophils % Seg Neutrophils # POC ABG pH POC ABG pCO2 POC ABG pO2 Sodium Potassium Chloride 95.7 L Carbon Dioxide BUN Creatinine 0.7 L Glucose 225 H POC Glucose 170 H Hemoglobin A1c Lactic Acid Calcium Phosphorus Magnesium Total Bilirubin Direct Bilirubin AST Total Creatine Kinase CK-MB (CK-2) C-Reactive Protein Total Protein Albumin TSH Free T4 05/05/18 05/05/18 05/05/18 06:36 12:29 18:55 WBC RBC Hgb Hct MCHC RDW Plt Count Lymph % (Auto) [place] % (Auto) Lymph # [place] # Seg Neutrophils % Seg Neutrophils # POC ABG pH POC ABG pCO2 POC ABG pO2 Sodium Potassium Chloride Carbon Dioxide BUN Creatinine Glucose POC Glucose 213 H 246 H 167 H Hemoglobin A1c Lactic Acid Calcium Phosphorus Magnesium Total Bilirubin Direct Bilirubin AST Total Creatine Kinase CK-MB (CK-2) C-Reactive Protein Total Protein Albumin TSH Free T4 05/05/18 05/06/18 05/06/18 23:37 05:39 11:56 WBC RBC Hgb Hct MCHC RDW Plt Count Lymph % (Auto) [place] % (Auto) Lymph # [place] # Seg Neutrophils % Seg Neutrophils # POC ABG pH POC ABG pCO2 POC ABG pO2 Sodium Potassium Chloride Carbon Dioxide BUN Creatinine Glucose POC Glucose 125 H 172 H 195 H Hemoglobin A1c Lactic Acid Calcium Phosphorus Magnesium Total Bilirubin Direct Bilirubin AST Total Creatine Kinase CK-MB (CK-2) C-Reactive Protein Total Protein Albumin TSH Free T4 05/06/18 05/06/18 05/07/18 18:06 21:19 00:13 WBC RBC Hgb Hct MCHC RDW Plt Count Lymph % (Auto) [place] % (Auto) Lymph # [place] # Seg Neutrophils % Seg Neutrophils # POC ABG pH 7.454 H POC ABG pCO2 POC ABG pO2 Sodium Potassium Chloride Carbon Dioxide BUN Creatinine Glucose POC Glucose 189 H 170 H Hemoglobin A1c Lactic Acid Calcium Phosphorus Magnesium Total Bilirubin Direct Bilirubin AST Total Creatine Kinase CK-MB (CK-2) C-Reactive Protein Total Protein Albumin TSH Free T4 05/07/18 05/07/18 05/07/18 04:40 04:40 05:13 WBC RBC Hgb Hct 35.2 L MCHC RDW Plt Count Lymph % (Auto) [place] % (Auto) 11.5 H Lymph # [place] # 1.1 H Seg Neutrophils % 70.3 H Seg Neutrophils # POC ABG pH POC ABG pCO2 POC ABG pO2 Sodium 134 L Potassium Chloride 93.4 L Carbon Dioxide BUN Creatinine 0.7 L Glucose 136 H POC Glucose 134 H Hemoglobin A1c Lactic Acid Calcium Phosphorus Magnesium Total Bilirubin Direct Bilirubin AST Total Creatine Kinase CK-MB (CK-2) C-Reactive Protein Total Protein Albumin TSH Free T4 Allied health notes reviewed: RT
[2018-05-07] MEDS: LOVENOX SUB-Q SCH (09:11)
[2018-05-07] MEDS: NORVASC FEEDTUBE SCH (09:12)
[2018-05-07] MEDS: KEPPRA PO SCH (09:12)
[2018-05-07] MEDS: PEPCID PO SCH (09:13)
[2018-05-07] MEDS: SODIUM CHLORIDE FLUSH SYRINGE 10 ML IV SCH (09:13)
[2018-05-07] MEDS: HumuLIN R SUB-Q SCH (09:13)
[2018-05-07] MEDS ORDERED: PROVIGIL PO SCH (10:00)
[2018-05-07 11:36] VITALS: BP 119/65
[2018-05-07] MEDS: COLACE FEEDTUBE SCH (11:55)
--- NOTE | 2018-05-07 12:00 | Discharge Summary ---
Providers - Providers Date of Admission: 04/10/18 02:47 Date of discharge: 05/07/18 Attending physician: BRENNAN UMANZOR 04/10/18 02:57 Consult to Physician [CONS] Routine Comment: Consulting Provider: ANTONINO LONG Physician Instructions: Reason For Exam: sz 04/10/18 12:59 Consult to Physician [CONS] Stat Comment: Consulting Provider: JUAN C MARSHALL Physician Instructions: Reason For Exam: CCU admission 04/10/18 17:37 Consult to Dietitian/Nutrition [CONS] Routine Physician Instructions: Assess nutrtn needs, initiate, modify, manage TF Reason For Exam: Reason for Consult: Write/Manage Tube Feeding Reason for Consult: Write/Manage Tube Feeding 04/11/18 10:20 PICC Line Placement [Consult to PICC Line RN] [CONS] Routine Reason For Exam: iv access/levophed Type Line:: PICC 04/13/18 10:23 Consult to Physician [CONS] Routine Comment: Consulting Provider: PRABHU ENGLAND Physician Instructions: Reason For Exam: pna 04/22/18 09:54 Occupational Therapy Evaluate and Treat [CONS] Routine Comment: Reason For Exam: Debility Physical Therapy Evaluation and Treat [CONS] Routine Comment: Reason For Exam: Debility 04/23/18 09:06 Consult to Physician [CONS] Routine Comment: Consulting Provider: GAMAL CHICAS Physician Instructions: Reason For Exam: hypoxic respiratroy failure, trach and PEG 04/23/18 16:20 Consult to Physician [CONS] Routine Comment: Consulting Provider: SANDEEP ARELLANO Physician Instructions: Reason For Exam: Hypoxic brain injury re-evaluation 05/04/18 12:04 Consult to Dietitian/Nutrition [CONS] Routine Physician Instructions: Reason For Exam: Reason for Consult: Write/Manage Tube Feeding Consult to Dietitian/Nutrition [CONS] Routine Physician Instructions: Assess nutrtn needs, initiate, modify, manage TF Reason For Exam: Reason for Consult: Write/Manage Tube Feeding Reason for Consult: Write/Manage Tube Feeding Primary care physician: KATIA KHAN Hospitalization Condition: Stable Pertinent studies: Head CT Brain MRI Abdominal xry CXR 2d echo Hospital course: Brief History: 78-year-old male patient with significant history of hypertension diabetes coronary artery disease was admitted through emergency room with history of unresponsiveness at home for unknown Duration of time. At that time he had hypoglycemia and seizure activity, Patient was unable to protect his airway and was intubated on ventilatory support admitted to ICU also with concern of Aspiration Pneumonia. Neuro: Patient had CT scan 2 days does not show acute abnormality. MR brain also negative for acute findings. 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 Pulmonary: The patient has been maintained on mechanical ventilator, he's not been able to be weaned off the vent. The family wants to continue aggressive care. patient underwent Trach and Peg on 04/30/18 FEN; his electrolytes namely potassium and phosphate were repleted. Initially was hypoglycemic, which now resolved ID; the patient received empiric antibiotics for pneumonia, Cultures including blood, urine and sputum has remained without growth. Musculoskeletal; Traumatic Rhabdomyolysis; status post IV fluids and improved, His medications were optimized for his chronic conditions CXR: Concerning for Focal RLL infiltrate initially, repeat done 04/23/18 shows no acute pathology. Disposition: Patient transferred to LTAC Discharge diagnosis and management: /Acute Toxic metabolic encephalopathy - Likely secondary to Hypoxic Ischemic Encephalopathy vs hypgolycemic encephalopathy vs seizure -no significant change in mental status after normalization of BG or adding keppra -Last EEG showed mild slowing of the background suggesting a metabolic or diffuse process but is improved since the March EEG but similar to the one of 04/24/18 with the exception that some sleep architecture is seen -MRI brain was neg -neurology was following and recommended to continue keppra -Need to Maintain sleep wake cycle /Acute respiratory failure with hypoxia -s/p intubation on MV Greater than 96hr -pulmonology was following -S/P Trach and Peg, wean off vent as tolerated /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 SWITCHED TO PO /Hypokalemia -resolved s/p repletion, /Severe sepsis 2/2 aspiration PNA -resolved -off antibiotics FOLLOWING TREATMENT WITH ROCEPHIN AND FLAGYL /UTI - Cx grew klebsiolla on 05/02 - started on cefepime /Aspiration Pneumonia -completed antibiotics for PNA /DM II with hyperglycemia - Was hypoglycemic on admission - BG improved - Cont current insulin regimen and adjust as needed /Seizure, new onset -probably 2/2 hypoglycemia recorded by EMS staff prior to admission -stable on Keppra -cont seizure precautions /Critical Illness Myopathy -cont supportive care /Thrombocytopenia -level improved, will monitor /Transaminitis -levels improved -Hepatitis panel neg -Abd US neg /Rhabdomyolysis -improved /Hypophosphatemia -resolved /Hypomagenesemia -Replaced /HTN -uncontrolled, meds adjusted /Moderate protein calorie malnutrition -on tube feeding -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 Hospitalist Physical VITAL SIGNS: Reviewed. GENERAL: The patient appeared well nourished and normally developed. Continues on mechanical ventilation with trach. HEAD: No signs of head trauma. EYES: Pupils are equal. Sluggish response to light.. EARS: No discharge MOUTH: Trach NECK: No adenopathy, no JVD. CHEST: Chest with clear breath sounds bilaterally. No wheezes, rales, or rhonchi. CARDIAC: Bradycardia with regular rate. S1 and S2, without murmurs, gallops, or rubs. VASCULAR: No Edema. Peripheral pulses normal and equal in all extremities. ABDOMEN: Peg in placed. Soft, without detectable tenderness. No sign of distention. No rebound or guarding, and no masses palpated. Bowel Sounds normal. MUSCULOSKELETAL: Extremities without clubbing, cyanosis or edema. NEUROLOGIC EXAM: awake, moves all ext. PSYCHIATRIC: Unable to assess. SKIN: No rash or lesions. Disposition: [id number]/[id number] MEDICARE CERT LT Time spent for discharge: 34 minutes Core Measure Documentation - Palliative Care Palliative Care/ Comfort Measures: Not Applicable - Core Measures Any of the following diagnoses?: none Exam - Constitutional Vitals: Temp Pulse Resp BP Pulse Ox 100.1 F H 83 20 119/65 100 05/07/18 08:00 05/07/18 11:31 05/07/18 11:31 05/07/18 11:31 05/07/18 11:31 Plan Activity: other (bedrest) Diet: other (TF diet) Additional Instructions: cont abx till 05/08/18 to complete total 7 days Follow up with: KATIA KHAN MD [Primary Care Provider] - 3-5 Days
[2018-05-07 13:22] LABS: Alanine Aminotransferase 46 units/L (7-56); Albumin 3.4 g/dL (3.9-5)
[2018-05-07 13:41] LABS: Bilirubin,Direct < 0.2 mg/dL (0-0.2)
--- NOTE | 2018-05-13 06:47 | Addendum Note ---
- Addendum Date: 04/15/18 Note: 78-year-old male patient with significant history of hypertension diabetes coronary artery disease was admitted through emergency room with history of unresponsivenessat home for unknown. At that time he had hypoglycemia and seizure activity,Patient was unable to protect his airway and was intubated on ventilatory support admitted to ICU, Hospital course -Neuro: Patient had CT scan 2 days should not show acute abnormality. 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 The family wants to continue aggressive care. If the patient is not able, he will most likely need to be trached and peg FEN; his electrolytes namely potassium and phosphate were repleted ID; the patient received empiric antibiotics for pneumonia Musculoskeletal; Traumatic Rhabdomyolysis; status post IV fluids and improved His medications were optimized for his chronic conditions Diagnosis Acute metabolic encephalopathy Hypoxic ischemic encephalopathy Pneumonia Sepsis Acute respiratory failure on mechanical ventilator greater than 96 hours Seizures due to hypoglycemia Hypoglycemia Hypokalemia Hyponatremia Type 2 diabetes Obesity Cr Care 33 min History Interval history: The patient remains intubated , off sedation, nonverbal due to intubation Unable to communicates with gestures or any other form of communication No fevers, seizures, or vomiting Hospitalist Physical - Physical exam Narrative exam: General.: Intubated , no distress HEENT: Moist mucous membranes, extraocular muscles intact, no lymphadenopathy Neck: supple Cardiac: S1-S2 heard Lungs: clear to auscultation bilaterally Abdomen: soft , nontender, nondistended, bowel sounds positive Extremities: no edema clubbing or cyanosis Skin: no rash or lesions Neurologic: Intubated , he is not sedated He opens eyes, moves head, opens his mouth, he moves his upper extremities, he does not obey commands, he does not turn to voice, doesn't maintain any eye contact
== END 2018-05-07 16:00 | DRG 4 ==
LOC: ED 22:53 → IMCU 04-10 02:47 → EDBD 04-10 02:47 → CC1 04-10 13:14
PROVIDERS: ADMIT Internal Medicine; ATTEND Internal Medicine
PROC: 0BH17EZ Insertion of Endotracheal Airway into Trachea, Via Natural or Artificial Opening (ICD-10-PCS; principal; 2018-04-10)
PROC: 5A1955Z Respiratory Ventilation, Greater than 96 Consecutive Hours (ICD-10-PCS; 2018-04-10)
PROC: 4A033R1 Measurement of Arterial Saturation, Peripheral, Percutaneous Approach (ICD-10-PCS; 2018-04-10)
PROC: 02HV33Z Insertion of Infusion Device into Superior Vena Cava, Percutaneous Approach (ICD-10-PCS; 2018-04-11)
PROC: 0B113F4 Bypass Trachea to Cutaneous with Tracheostomy Device, Percutaneous Approach (ICD-10-PCS; 2018-04-30)
PROC: 0DH63UZ Insertion of Feeding Device into Stomach, Percutaneous Approach (ICD-10-PCS; 2018-04-30)
PROC: 0BJ08ZZ Inspection of Tracheobronchial Tree, Via Natural or Artificial Opening Endoscopic (ICD-10-PCS; 2018-04-30)
DX: A41.9 Sepsis, unspecified organism (principal); G92 Toxic encephalopathy; J96.01 Acute respiratory failure with hypoxia; J69.0 Pneumonitis due to inhalation of food and vomit; E87.1 Hypo-osmolality and hyponatremia; Z68.44 Body mass index [BMI] 60.0-69.9, adult; E44.0 Moderate protein-calorie malnutrition; G40.89 Other seizures; N39.0 Urinary tract infection, site not specified; G72.81 Critical illness myopathy; E83.42 Hypomagnesemia; Z60.2 Problems related to living alone; E03.9 Hypothyroidism, unspecified; E87.6 Hypokalemia; X58.XXXD Exposure to other specified factors, subsequent encounter; E83.39 Other disorders of phosphorus metabolism; E66.01 Morbid (severe) obesity due to excess calories; E11.40 Type 2 diabetes mellitus with diabetic neuropathy, unspecified; K31.7 Polyp of stomach and duodenum; E11.649 Type 2 diabetes mellitus with hypoglycemia without coma; I10 Essential (primary) hypertension; I25.10 Atherosclerotic heart disease of native coronary artery without angina pectoris; Z82.49 Family history of ischemic heart disease and other diseases of the circulatory system; Z95.5 Presence of coronary angioplasty implant and graft; Z83.3 Family history of diabetes mellitus; Z82.0 Family history of epilepsy and other diseases of the nervous system; Z79.899 Other long term (current) drug therapy; Z79.84 Long term (current) use of oral hypoglycemic drugs; T79.6XXD Traumatic ischemia of muscle, subsequent encounter; D69.6 Thrombocytopenia, unspecified; R65.20 Severe sepsis without septic shock; E11.65 Type 2 diabetes mellitus with hyperglycemia; B96.1 Klebsiella pneumoniae [K. pneumoniae] as the cause of diseases classified elsewhere
CPT/HCPCS: 36415; 36600; 70450; 70551; 71045; 74018; 76705; 80048; 80053; 80074; 80076; 80177; 81001; 82140; 82550; 82553; 82607; 82803; 82962; 83036; 83735; 84100; 84439; 84443; 84484; 85025; 85027; 85610; 85730; 86140; 87040; 87070; 87076; 87086; 87186; 87205; 87400; 93005; 93010; 93308; 93321; 93325; 94002; 94003; 94640; 94760; 95819; G0378; J0360; J0456; J0692; J0696; J1650; J1815; J1953; J2060; J2250; J2405; J2543; J2704; J3010; J3370; J3475; J7030; J7040; J7050